=== PATIENT | female | born 1955 | race Caucasian/White ===

== ENCOUNTER 2018-01-30 14:59 | Inpatient (IN) | payer BC ==
[2018-01-30] MEDS ORDERED: SODIUM CHLORIDE 0.9% 1,000 ML IV STA (15:25)
--- NOTE | 2018-01-30 15:32 | ED ---
General Adult HPI - General Chief complaint: Abdominal Pain Stated complaint: abd pain Source: patient, EMS Mode of arrival: EMS - History of Present Illness Initial comments: Dictation was produced using [employer] dictation software. please excuse any grammatical, word or spelling errors. Chief Complaint: 62-year-old female with past medical history of diabetes, dyslipidemia presents via EMS as a transfer for incarcerated hernia. History of Present Illness: Patient is 62-year-old female with past medical history of umbilical hernia. She has had this hernia for several years now. She was on her feet all day making cookies when she took a nap on a chair. She woke up secondary to severe abdominal tenderness. She went directly to [facility] emergency department where CT was performed showing incarcerated umbilical hernia. And small bowel obstruction. Patient did have leukocytosis and a left acidosis of 3.2. She started on Zosyn and intravenous fluids and transferred to our facility for higher level of care. Patient had NG tube that was placed that significantly reduced her symptoms. She reports that the attempted reduction of hernia there however en route to our facility the hernia recurred. The ROS documented in this emergency department record has been reviewed and confirmed by me. Those systems with pertinent positive or negative responses have been documented in the HPI. All other systems are other negative and/or noncontributory. - Related Data Allergies Allergy/AdvReac Type Severity Reaction Status Date / Time acetaminophen [From Vicodin] Allergy Unknown Verified 01/30/18 15:01 hydrocodone [From Vicodin] Allergy Unknown Verified 01/30/18 15:01 Review of Systems ROS Statement: Those systems with pertinent positive or pertinent negative responses have been documented in the HPI. ROS Other: All systems not noted in ROS Statement are negative. Past Medical History Past Medical History: Diabetes Mellitus, Hyperlipidemia Additional Past Medical History / Comment(s): heart palpatation, neuropathy in feet History of Any Multi-Drug Resistant Organisms: None Reported Past Surgical History: Section, Cholecystectomy, Orthopedic Surgery Additional Past Surgical History / Comment(s): fx nose, tailbone cyst, oopherectomy, right shoulder surgery Past Psychological History: No Psychological Hx Reported Smoking Status: Never smoker Past Alcohol Use History: None Reported Past Drug Use History: None Reported General Exam - General Exam Comments Initial Comments: PHYSICAL EXAM: General Impression: Alert and oriented x3, not in acute distress HEENT: Normocephalic atraumatic, extra-ocular movements intact, pupils equal and reactive to light bilaterally, mucous membranes moist, NG tube in place Cardiovascular: Heart regular rate and rhythm, S1&S2 audible, no murmurs, rubs or gallops Chest: Lungs clear to auscultation bilaterally, no rhonchi, no wheeze, no rales Abdomen: Bowel sounds present, abdomen soft, diffuse abdominal tenderness to palpation, broad-based hernia over the supraumbilical region Musculoskeletal: Pulses present and equal in all extremities, no peripheral edema Motor: Power 5/5 bilaterally, no focal deficits noted Neurological: CN II-XII grossly intact, no focal motor or sensory deficits noted Skin: Intact with no visualized rashes Psych: Normal affect and mood Course Vital Signs 01/30/18 15:02 Temperature 98.1 F Pulse Rate 104 H Respiratory 18 Rate Blood Pressure 145/87 O2 Sat by Pulse 96 Oximetry Medical Decision Making - Medical Decision Making ED course: 62-year-old female presents via transfer for possible strangulate hernia. Vocal shows heart rate of 104, respiratory signs within normal limits. Hernia was appreciated at bedside. Hernia was reduced with gentle pressure to a pop was felt. Patient appears stable at this time. Patient started intravenous was. Repeat lactic acid level was obtained. Discussed patient case with general surgeon who is willing to accept admission. There is no plans for urgent surgical intervention at this time. Disposition Clinical Impression: Small bowel obstruction, Incarcerated hernia Disposition: ADMITTED IP TO THIS HOSP Condition: Fair Referrals: Torres Tyler DO [Primary Care Provider] - 1-2 days Decision Time: 15:35
[2018-01-30] MEDS ORDERED: NALOXONE 0.4 MG/ML 1 ML VIAL IV PRN (15:33)
[2018-01-30] MEDS ORDERED: MORPHINE SULFATE 4 MG/ML SYRINGE IV PRN (15:33)
[2018-01-30] MEDS ORDERED: ONDANSETRON 4 MG/2 ML VIAL IVP PRN (15:33)
[2018-01-30] MEDS ORDERED: PIPERACILLIN-TAZOBACTAM 3.375 GM in SODIUM CHLORIDE 0.9% 100 ML IVPB SCH (17:00)
--- NOTE | 2018-01-30 17:45 | P.GSHP ---
History of Present Illness H&P Date: 01/30/18 Chief Complaint: Abdominal pain 62-year-old female presents to the hospital with 2 days worth of abdominal pain. She has had episodes of vomiting as well. Some bloating. Patient is a history of a known umbilical hernia that was previously repaired at the time of her gallbladder surgery. She did not really appreciate that the hernia had gotten much larger or more painful per se. Pain was more diffuse in nature. Patient has a history of chronic constipation. She has not noticed a significant change in flatus or bowel movements since her symptoms began. She was at [facility]. She had a CAT scan showing incarceration of small bowel and fat at the recurrent umbilical hernia site. There was suggestion of a transition zone in the small bowel at that location. Apparently this hernia was able to be reduced both in the ER at [place] and also here at our emergency department. Lactic acid was elevated as well as the patient's white blood cell count at [place]. Patient feels much better and is almost pain free at this time. Nasogastric tube was placed with unknown output. Patient was started on IV antibiotics as well. She was admitted to the surgical service with these complaints. No history of similar events. - Review of Systems Comment: The patient denies any acute changes in vision or hearing, no dysphagia or odynophagia, no chest pain or shortness of breath, no dysuria or hematuria, no headache, no runny nose, no rectal bleeding or melena, no unexplained weight loss Past Medical History Past Medical History: Diabetes Mellitus, Hyperlipidemia Additional Past Medical History / Comment(s): heart palpatation, neuropathy in feet History of Any Multi-Drug Resistant Organisms: None Reported Past Surgical History: Section, Cholecystectomy, Orthopedic Surgery Additional Past Surgical History / Comment(s): fx nose, tailbone cyst, oopherectomy, right shoulder surgery Past Psychological History: No Psychological Hx Reported Smoking Status: Never smoker Past Alcohol Use History: None Reported Past Drug Use History: None Reported Medications and Allergies Home Medications Medication Instructions Recorded Confirmed Type Aspirin EC [Ecotrin Low Dose] 81 mg PO DAILY 01/30/18 01/30/18 History Cetirizine HCl 10 mg PO DAILY 01/30/18 01/30/18 History Niacin 500 mg PO DAILY 01/30/18 01/30/18 History Nortriptyline HCl [Pamelor] 100 mg PO DAILY 01/30/18 01/30/18 History [place]-3 Fatty Acids/Fish Oil [Fish 1 cap PO DAILY 01/30/18 01/30/18 History Oil 1,000 mg Softgel] Verapamil HCl [Verelan Pm] 100 mg PO HS 01/30/18 01/30/18 History metFORMIN HCL 1,000 mg PO DAILY 01/30/18 01/30/18 History Allergies Allergy/AdvReac Type Severity Reaction Status Date / Time hydrocodone [From Vicodin] Allergy Unknown Verified 01/30/18 16:00 latex AdvReac Itching Verified 01/30/18 16:00 Surgical - Exam Vital Signs Temp Pulse Resp BP Pulse Ox 98.1 F 104 H 18 145/87 96 01/30/18 15:02 01/30/18 15:02 01/30/18 15:02 01/30/18 15:02 01/30/18 15:02 Physical exam: General: Well-developed, well-nourished HEENT: Normocephalic, sclerae nonicteric Abdomen: Mild distention, mild diffuse tenderness, hernia easily reducible without tenderness at that location Extremities: No edema Neuro: Alert and oriented Assessment and Plan (1) Small bowel obstruction Narrative/Plan: Patient may have had a bowel obstruction related to this hernia however the hernia is now easily reducible. Keep nasogastric tube this evening. Recheck x- rays tomorrow. Patient will require interval repair of this hernia but this may be performed as an outpatient. We'll discuss this further with the patient during this hospital stay. Current Visit: Yes Status: Acute Code(s): K56.609 - UNSP INTESTNL OBST, UNSP TO PARTIAL VERSUS COMPLETE OBST SNOMED Code(s): 938204200
[2018-01-30] MEDS ORDERED: METOCLOPRAMIDE 5 MG/ML 2 ML VIAL IVP PRN (17:46)
[2018-01-30] MEDS ORDERED: ACETAMINOPHEN IV (For NPO) 1,000 MG in EMPTY BAG 1 BAG IVPB ONE (17:46)
[2018-01-30] MEDS ORDERED: HYDROmorphone 0.5 MG/0.5 ML SYRINGE IVP PRN ×2 (17:46→17:59)
[2018-01-30 18:06] LABS: Glucose,Whole Blood 141 mg/dL (75-99)
[2018-01-30 18:28] VITALS: BMI 43.5
[2018-01-30] MEDS ORDERED: BENZOCAINE SPRAY 1 CAN MUCOUS MEM PRN (19:29)
[2018-01-30 20:52] LABS: Glucose,Whole Blood 90 mg/dL (75-99)
[2018-01-30 21:01] VITALS: RESP 16
[2018-01-30] MEDS: INSULIN ASPART 100 UNIT/ML 1 ML 10 ML VIAL SQ SCH (21:22)
[2018-01-30] MEDS: PIPERACILLIN-TAZOBACTAM 3.375 GM in SODIUM CHLORIDE 0.9% 100 ML IVPB SCH (21:24)
[2018-01-31] MEDS: HEPARIN SODIUM,PORCINE 5,000 UNIT/ML 1 ML VIAL SQ SCH ×3 (01:16→15:21)
[2018-01-31] MEDS: PIPERACILLIN-TAZOBACTAM 3.375 GM in SODIUM CHLORIDE 0.9% 100 ML IVPB SCH ×2 (05:15→15:18)
[2018-01-31 07:05] LABS: Glucose,Whole Blood 111 mg/dL (75-99)
--- NOTE | 2018-01-31 08:20 | XR ---
2 view abdomen HISTORY: Small bowel obstruction 2 views the abdomen submitted on [address] abdomen pelvis from outside institution 01/30/2018. There is no pneumoperitoneum. NG tube is in place, side-port is at the level of the distal thoracic e sophagus. There are air-fluid levels present. Gas distended loops of small bowel noted. Patchy basila r density present at the lung bases. Surgical clips present in the right upper quadrant. Contrast pre sent in the bladder compatible with patient's prior CT. Degenerative disc changes in the visualized s pine. IMPRESSION: Findings compatible with small bowel obstruction. Correlate. NG tube shows the side port near the level of the gastroesophageal junction.
[2018-01-31 08:40] LABS: Basophils % (A) 0 %; Eosinophils # (A) 0.2 k/uL (0-0.7); Eosinophils % (A) 3 %; HCT 37.6 % (34.0-46.0); HGB 12.1 gm/dL (11.4-16.0); Lymphocytes # (A) 2.2 k/uL (1.0-4.8); Lymphocytes % (A) 22 %; MCH 27.5 pg (25.0-35.0); MCHC 32.3 g/dL (31.0-37.0); MCV 85.1 fL (80.0-100.0); Mean Platelet Volume 6.7; Monocytes # (A) 0.5 k/uL (0-1.0); Monocytes % (A) 5 %; Neutrophils # (A) 6.6 k/uL (1.3-7.7); Neutrophils % (A) 68 %; Platelet Count 324 k/uL (150-450); RBC 4.42 m/uL (3.80-5.40); RDW 13.8 % (11.5-15.5); WBC 9.7 k/uL (3.8-10.6)
[2018-01-31 08:52] LABS: ALT 35 U/L (9-52); AST 24 U/L (14-36); Albumin 3.6 g/dL (3.5-5.0); Alkaline Phosphatase 85 U/L (38-126); Anion Gap 8 mmol/L; Blood Urea Nitrogen 17 mg/dL (7-17); Calcium 8.5 mg/dL (8.4-10.2); Carbon Dioxide 24 mmol/L (22-30); Chloride 110 mmol/L (98-107); Glucose 117 mg/dL (74-99); Potassium 4.2 mmol/L (3.5-5.1); Sodium 142 mmol/L (137-145); Total Bilirubin 0.7 mg/dL (0.2-1.3); Total Protein 6.7 g/dL (6.3-8.2)
[2018-01-31] MEDS ORDERED: PANTOPRAZOLE 40 MG/10 ML VIAL IV SCH (09:00)
[2018-01-31] MEDS: INSULIN ASPART 100 UNIT/ML 1 ML 10 ML VIAL SQ SCH ×3 (09:01→17:59)
[2018-01-31 10:33] VITALS: TEMP 98.2
[2018-01-31 11:26] LABS: Glucose,Whole Blood 98 mg/dL (75-99)
[2018-01-31] MEDS ORDERED: SODIUM CHLORIDE 0.9% 1,000 ML IV SCH (12:45)
--- NOTE | 2018-01-31 12:49 | P.CONS ---
History of Present Illness - Reason for Consult Recommendations regarding diabetic medications. - History of Present Illness 62-year-old pleasant female had an episode of vomiting Tuesday and one Tuesday and the went to ER patient has a little hernia she was having pain in the medical hernia area moderate pain and bloating had multiple episodes of vomiting when she arrived in the [place] ER after which patient was subsequently sent in here CAT scan showed suspicious incarceration of the small bowel because of which patient was admitted to general surgery service. I was consulted for management of diabetes. Patient uses metformin and patient nausea vomiting improved patient an NG tube no drainage today which will be clamped and probably NG tube will come out lactic acid was bit elevated because of which patient received IV fluids and lactic acid here is within normal limits patient was initially started on IV antibiotics are being continued may not need antibiotics discussed general surgery. Patient is able to tolerate clear liquid diet after the discontinued NG tube patient probably will be discharged today there is a chance she may not tolerate in that scenario will resume her home medications sliding scale insulin. Review of Systems REVIEW OF SYSTEMS: CONSTITUTIONAL: No fever, no malaise, no fatigue. HEENT: No recent visual problems or hearing problems. Denied any sore throat. CARDIOVASCULAR: No chest pain, orthopnea, PND, no palpitations, no syncope. PULMONARY: No shortness of breath, no cough, no hemoptysis. GASTROINTESTINAL: As mentioned in HPI NEUROLOGICAL: No headaches, no weakness, no numbness. HEMATOLOGICAL: Denies any bleeding or petechiae. GENITOURINARY: Denies any burning micturition, frequency, or urgency. MUSCULOSKELETAL/RHEUMATOLOGICAL: Denies any joint pain, swelling, or any muscle pain. ENDOCRINE: Denies any polyuria or polydipsia. The rest of the 14-point review of systems is negative. Past Medical History Past Medical History: Diabetes Mellitus, Hyperlipidemia Additional Past Medical History / Comment(s): heart palpatation, neuropathy in feet History of Any Multi-Drug Resistant Organisms: None Reported Past Surgical History: Section, Cholecystectomy, Orthopedic Surgery Additional Past Surgical History / Comment(s): fx nose, tailbone cyst, oopherectomy, right shoulder surgery Past Psychological History: No Psychological Hx Reported Smoking Status: Never smoker Past Alcohol Use History: None Reported Past Drug Use History: None Reported - Past Family History Father Family Medical History: Congestive Heart Failure (CHF) Mother Family Medical History: Congestive Heart Failure (CHF), Deep Vein Thrombosis ( DVT) Medications and Allergies Home Medications Medication Instructions Recorded Confirmed Type Aspirin EC [Ecotrin Low Dose] 81 mg PO DAILY 01/30/18 01/30/18 History Cetirizine HCl 10 mg PO DAILY 01/30/18 01/30/18 History Niacin 500 mg PO DAILY 01/30/18 01/30/18 History Nortriptyline HCl [Pamelor] 100 mg PO DAILY 01/30/18 01/30/18 History [place]-3 Fatty Acids/Fish Oil [Fish 1 cap PO DAILY 01/30/18 01/30/18 History Oil 1,000 mg Softgel] Verapamil HCl [Verelan Pm] 100 mg PO HS 01/30/18 01/30/18 History metFORMIN HCL 1,000 mg PO DAILY 01/30/18 01/30/18 History Allergies Allergy/AdvReac Type Severity Reaction Status Date / Time hydrocodone [From Vicodin] Allergy Unknown Verified 01/30/18 16:00 latex AdvReac Itching Verified 01/30/18 16:00 Physical Exam Vitals: Vital Signs Temp Pulse Pulse Resp BP BP Pulse Ox 01/31/18 10:31 98.2 F 95 16 120/81 98 01/31/18 00:15 16 01/30/18 23:59 98.3 F 111 H 16 121/80 94 L 01/30/18 20:50 100 16 01/30/18 19:00 98.4 F 100 16 130/75 01/30/18 16:30 131/75 95 01/30/18 16:12 100 20 125/77 99 01/30/18 16:00 129/76 97 01/30/18 15:30 145/87 95 01/30/18 15:03 145/87 96 01/30/18 15:02 98.1 F 104 H 18 145/87 96 Intake and Output 01/30/18 01/31/18 01/31/18 22:59 06:59 14:59 Intake Total 100 200 Output Total 10 110 Balance 90 90 Intake: Intake, IV Titration 100 200 Amount Piperacillin-Tazobactam 3 100 200 .375 gm In Sodium Chloride 0.9% 100 ml @ 25 mls/hr IVPB Q8H CRISTIN Rx#: [id number] Output: Gastric Drainage 10 110 Other: # Voids 2 2 Weight 122.47 kg PHYSICAL EXAMINATION: GENERAL: The patient is alert and oriented x3, not in any acute distress. Well developed, well nourished. HEENT: Pupils are round and equally reacting to light. EOMI. No scleral icterus. No conjunctival pallor. Normocephalic, atraumatic. No pharyngeal erythema. No thyromegaly. CARDIOVASCULAR: S1 and S2 present. No murmurs, rubs, or gallops. PULMONARY: Chest is clear to auscultation, no wheezing or crackles. ABDOMEN: Soft, nontender, nondistended, normoactive bowel sounds. No palpable organomegaly. She has an abdominal binder in place does have an NG tube which is not draining and clamped now patient's hernia was completely reduced now MUSCULOSKELETAL: No joint swelling or deformity. EXTREMITIES: No cyanosis, clubbing, or pedal edema. NEUROLOGICAL: Gross neurological examination did not reveal any focal deficits. SKIN: No rashes. Results CBC & Chem 7: 01/31/18 07:32 01/31/18 07:32 Labs: Abnormal Lab Results - Last 24 Hours (Table) 01/30/18 01/31/18 01/31/18 Range/Units 17:54 06:51 07:32 Chloride 110 H (98-107) mmol/L Glucose 117 H (74-99) mg/dL POC Glucose (mg/dL) 141 H 111 H (75-99) mg/dL Assessment and Plan Plan: -Symptomatic hernia with abdominal pain nausea vomiting: Was evaluated by general surgery, patient is being continued antibiotic and medical management as per general surgery. NG tube will be clamped and further plan as mentioned in the interval history patient was started on sliding scale insulin hold off on metformin -Type 2 diabetes mellitus since patient is nothing by mouth patient will be on sliding scale rather than oral hypoglycemic agents -Hyperlipidemia -History of palpitations exact heart rhythm is unknown although patient is on verapamil which will be resumed -Obesity
--- NOTE | 2018-01-31 13:30 | P.PN ---
Subjective Progress Note Date: 01/31/18 Principal diagnosis: Small bowel obstruction Patient feels better today. No pain at this time. She is having discomfort at the nasogastric tube site. Hernia feels back to normal she states. She is passing flatus. No bowel movement. Objective - Vital Signs Vital signs: Vital Signs Temp 98.2 F 01/31/18 10:31 Pulse 95 01/31/18 10:31 Resp 16 01/31/18 10:31 BP 120/81 01/31/18 10:31 Pulse Ox 98 01/31/18 10:31 Intake & Output 01/30/18 01/31/18 01/31/18 18:59 06:59 18:59 Intake Total 300 Output Total 120 Balance 180 Weight 122.47 kg Intake: Intake, IV Titration 300 Amount Piperacillin-Tazobactam 3 300 .375 gm In Sodium Chloride 0.9% 100 ml @ 25 mls/hr IVPB Q8H CRISTIN Rx#: [id number] Output: Gastric Drainage 120 Other: # Voids 2 - Exam Endocrine: Soft, nondistended, nontender, hernia reducible - Labs CBC & Chem 7: 01/31/18 07:32 01/31/18 07:32 Labs: Abnormal Lab Results - Last 24 Hours (Table) 01/30/18 01/31/18 01/31/18 Range/Units 17:54 06:51 07:32 Chloride 110 H (98-107) mmol/L Glucose 117 H (74-99) mg/dL POC Glucose (mg/dL) 141 H 111 H (75-99) mg/dL Assessment and Plan (1) Small bowel obstruction Narrative/Plan: Remove nasogastric tube. Begin full liquid diet. Ambulate. Possible discharge today with outpatient repair of the hernia. Current Visit: Yes Status: Acute Code(s): K56.609 - UNSP INTESTNL OBST, UNSP TO PARTIAL VERSUS COMPLETE OBST SNOMED Code(s): 320887044
[2018-01-31 15:07] VITALS: BP 147/92; PULSE 97
[2018-01-31 17:31] LABS: Glucose,Whole Blood 88 mg/dL (75-99)
[2018-01-31] MEDS ORDERED: VERAPAMIL SR 120 MG TABLET.ER PO SCH (21:00)
[2018-02-01] MEDS ORDERED: NIACIN TR 500 MG CAPSULE.ER PO SCH (09:00)
[2018-02-01] MEDS ORDERED: ASPIRIN 81 MG PO SCH (09:00)
[2018-02-01] MEDS ORDERED: NORTRIPTYLINE 25 MG CAP PO SCH (09:00)
[2018-02-01 10:30] LABS: Hemoglobin A1C 6.2 % (4.0-6.0)
== END 2018-01-31 20:59 | disposition home or self-care (01) | DRG 394 ==
LOC: EC 14:59 → 4SSUR 15:33
PROVIDERS: ADMIT Surgery; ATTEND Surgery
DX: K42.0 Umbilical hernia with obstruction, without gangrene (principal); E87.2 Acidosis; Z68.41 Body mass index [BMI] 40.0-44.9, adult; D72.829 Elevated white blood cell count, unspecified; E78.5 Hyperlipidemia, unspecified; Z79.84 Long term (current) use of oral hypoglycemic drugs; Z82.49 Family history of ischemic heart disease and other diseases of the circulatory system; E11.40 Type 2 diabetes mellitus with diabetic neuropathy, unspecified; Z90.721 Acquired absence of ovaries, unilateral; Z83.2 Family history of diseases of the blood and blood-forming organs and certain disorders involving the immune mechanism; Z88.5 Allergy status to narcotic agent; Z91.040 Latex allergy status; Z79.82 Long term (current) use of aspirin; Z79.899 Other long term (current) drug therapy; E66.9 Obesity, unspecified; R00.2 Palpitations
CPT/HCPCS: 74019; 80053; 83036; 83605; 85025; 96360; 99285

== ENCOUNTER → 2018-02-23 | Outpatient (CLI) | payer BC | END | disposition home or self-care (01) | LOC: LABPAT 11:56 | PROVIDERS: ATTEND Anesthesiology | DX: Z01.818 Encounter for other preprocedural examination (principal) | CPT/HCPCS: 93005 ==

== ENCOUNTER 2018-02-24 10:46 | Day surgery (SDC) | payer BC ==
[2018-02-22 11:44] VITALS: BMI 44.9
[~2018-02-24 10:46] MED LIST: DEXAMETHASONE SOD PHOSPHATE 10 MG/ML 1 ML VIAL IV ONE; HEPARIN SODIUM,PORCINE 5,000 UNIT/ML 1 ML VIAL SQ ONE; LACTATED RINGERS 1,000 ML IV SCH; LIDOCAINE 1% 20 ML VIAL (10MG/ML) FOR IV START INTRADERMA PRN; ONDANSETRON 4 MG/2 ML VIAL IVP ONE; SCOPOLAMINE 1.5MG/72HR PATCH TRANSDERM ONE
[2018-02-24 11:37] LABS: Glucose,Whole Blood 117 mg/dL (75-99)
[2018-02-24] MEDS ORDERED: MIDAZOLAM 2 MG/2 ML VIAL ONE (12:09)
[2018-02-24] MEDS ORDERED: GLYCOPYRROLATE 0.2 MG/ML 2 ML VIAL ONE (12:09)
[2018-02-24] MEDS ORDERED: PROPOFOL 10 MG/ML 20 ML VIAL IV ONE (12:09)
[2018-02-24] MEDS ORDERED: PHENYLEPHRINE-0.9% NACL SYG 1 MG/10 ML SYRINGE ONE (12:09)
[2018-02-24] MEDS ORDERED: NEOSTIGMINE 1 MG/ML 10 ML VIAL ONE (12:09)
[2018-02-24] MEDS ORDERED: ROCURONIUM BROMIDE 10 MG/ML 10 ML VIAL IV ONE (12:09)
[2018-02-24] MEDS ORDERED: LIDOCAINE 1% INJ 10MG/ML (20 ML MDV) ONE (12:09)
[2018-02-24] MEDS ORDERED: fentaNYL (PF) 50 MCG/ML 2 ML AMP ONE (12:09)
[2018-02-24] MEDS ORDERED: BUPIVACAINE (PF) 0.25% 30 ML VIAL SQ ONE ×2 (12:38)
[2018-02-24] MEDS ORDERED: LACTATED RINGERS 1,000 ML IV ONE ×2 (13:35)
[2018-02-24] MEDS ORDERED: NALOXONE 0.4 MG/ML 1 ML VIAL IV PRN (14:25)
--- NOTE | 2018-02-24 14:31 | P.OP ---
Date of Procedure: 02/24/18 Procedure(s) Performed: PREOPERATIVE DIAGNOSIS: Umbilical hernia POSTOPERATIVE DIAGNOSIS: Large incarcerated umbilical hernia PROCEDURE: Umbilical herniorrhaphy with mesh SURGEON: Yasmeen EBL: Minimal ANESTHESIA: General COMPLICATIONS: None OPERATIVE PROCEDURE: The patient was placed in the operating table in the supine position. A periumbilical incision was made to the left side of the umbilicus using the scalpel. This was later lengthened slightly superiorly and inferiorly. The subcutaneous tissues were dissected bluntly. The hernia sac was identified. The umbilical attachments to the fascia were divided using electrocautery. The hernia was quite large. Much larger than anticipated. The omentum was stuck to the hernia sac itself. The hernia sac and adjacent omentum was excised as one piece using the LigaSure device. This measured approximately 12-15 cm in diameter. The fascial defect was measured and noted to be 8 x 6 cm. No additional fascial defects were encountered. The 12 x 8 cm oval-shaped Ventrio mesh was placed beneath the fascia and sutured to the fascia using trans-fascial 0 Ethibond sutures. The defect in the fascia was then reapproximated using interrupted 0 Ethibond sutures in a vest over pants fashion and [id number] sutures. The folding edge was tacked down again using 0 Ethibond sutures. A NIXON drain was placed anterior to the fascial closer exiting from the left lower quadrant. This was sutured in place using a 3-0 silk stitch. The subcutaneous tissues were reapproximated using inverted 2-0 Vicryl sutures. The umbilicus was tacked back down to the fascia using a 3-0 Vicryl suture. The skin was closed using 4-0 Monocryl sutures. Skin glue and sterile dressings were then applied. DISPOSITION: Stable to recovery room
[2018-02-24 14:37] LABS: Glucose,Whole Blood 131 mg/dL (75-99)
[2018-02-24] MEDS: HYDROmorphone 0.5 MG/0.5 ML SYRINGE IVP PRN ×4 (14:58→15:41)
[2018-02-24] MEDS ORDERED: ONDANSETRON 4 MG/2 ML VIAL IVP ONE (15:35)
[2018-02-24] MEDS ORDERED: HYDROmorphone 1 MG/ML 1 ML SYRINGE IVP PRN (16:14)
[2018-02-24] MEDS: SODIUM CHLORIDE 0.9% 1,000 ML IV SCH (20:48)
[2018-02-24] MEDS: Acetaminophen-Codeine 300-30mg TAB PO PRN (20:49)
[2018-02-24] MEDS ORDERED: VERAPAMIL SR 120 MG TABLET.ER PO SCH (21:00)
[2018-02-25] MEDS: Acetaminophen-Codeine 300-30mg TAB PO PRN ×3 (01:29→14:08)
[2018-02-25] MEDS: SODIUM CHLORIDE 0.9% 1,000 ML IV SCH (03:57)
[2018-02-25] MEDS ORDERED: metFORMIN 500 MG TAB PO SCH (09:00)
--- NOTE | 2018-02-25 11:20 | P.DS ---
Providers Expected date of discharge: 02/25/18 Attending physician: Saúl Arana Primary care physician: [facility] Course: Patient minute postoperatively yesterday for observation purposes. The patient' s umbilical hernia was much larger than expected. A drain was left in place. She was having discomfort postoperatively and was kept overnight. She is doing well today. Tolerating diet. Ambulating in the room. We'll discharge. Plan follow-up week. Plan - Discharge Summary Discharge Rx Participant: No New Discharge Prescriptions: New Acetaminophen with Codeine [Tylenol w/codeine #3] 1 tab PO Q4H #10 tab No Action Aspirin EC [Ecotrin Low Dose] 81 mg PO DAILY Verapamil HCl [Verelan Pm] 100 mg PO HS [place]-3 Fatty Acids/Fish Oil [Fish Oil 1,000 mg Softgel] 1 cap PO DAILY Nortriptyline HCl [Pamelor] 100 mg PO HS Cetirizine HCl 10 mg PO DAILY PRN PRN Reason: Allergy Symptoms metFORMIN HCL 1,000 mg PO DAILY Discharge Medication List Aspirin EC [Ecotrin Low Dose] 81 mg PO DAILY 01/30/18 [History] Cetirizine HCl 10 mg PO DAILY PRN 01/30/18 [History] Nortriptyline HCl [Pamelor] 100 mg PO HS 01/30/18 [History] [place]-3 Fatty Acids/Fish Oil [Fish Oil 1,000 mg Softgel] 1 cap PO DAILY [History] Verapamil HCl [Verelan Pm] 100 mg PO HS 01/30/18 [History] metFORMIN HCL 1,000 mg PO DAILY 01/30/18 [History] Acetaminophen with Codeine [Tylenol w/codeine #3] 1 tab PO Q4H #10 tab 02/24/18 [Rx] Follow up Appointment(s)/Referral(s): Saúl Arana MD [Medical Doctor] - 03/02/18 9:40 am Patient Instructions/Handouts: *Surgery [facility] - (Anesthesia) Discharge Instructions Outpatient Surgery, [place] Drain Care (DC), Umbilical Hernia Repair (DC)
[2018-02-25 14:42] VITALS: BP 119/71; PULSE 102; RESP 18; TEMP 98.4
== END 2018-02-25 14:15 | disposition home or self-care (01) ==
LOC: OR 10:46 → 6PED 14:29 → OR 02-25 14:15
PROVIDERS: ATTEND Surgery
DX: K42.0 Umbilical hernia with obstruction, without gangrene (principal); E78.5 Hyperlipidemia, unspecified; E11.42 Type 2 diabetes mellitus with diabetic polyneuropathy; Z88.5 Allergy status to narcotic agent; Z91.040 Latex allergy status; Z79.82 Long term (current) use of aspirin; Z79.84 Long term (current) use of oral hypoglycemic drugs; Z79.899 Other long term (current) drug therapy; Z82.49 Family history of ischemic heart disease and other diseases of the circulatory system
CPT/HCPCS: 88302; 49587; C1781; J2250; J1644; J1100; J2710; J0690; J2405; J2001; J3010; J2370; J2704; J1170

== ENCOUNTER → 2020-11-24 | Outpatient (CLI) | payer BC ==
--- NOTE | 2020-12-02 14:21 | MR ---
Pelvic MRI with and without contrast HISTORY: Abnormal pelvic ultrasound Multiplanar multisequence and postcontrast images obtained through the pelvis following routine cc ga dolinium based IV. Correlation pelvic ultrasound from outside institution 11/06/2020 There are multiple myometrial masses present showing low signal on T1 and T2-weighted sequences with varying sizes. On sagittal image 15, coronal image 11 there is a focus which extends into the endomet rial location consistent with submucosal fibroid measuring approximately 6 to 7 mm. In the lower [place] rine segment there is a lesion measuring approximately 2.7 cm within the myometrium, anterior body sh ows a focus measuring 2.7 cm, there are at least 8-10 lesions present. Along the endocervical canal t here is a mucosal irregularity, sagittal image 14, coronal image 18 also possibly representing a subm ucosal fibroid. Transitional zone thought to be within normal limits. No evident ovarian mass, follic les are present. Urinary bladder is contracted. No definite pelvic adenopathy or free fluid. Visualiz ed bone marrow signal is normal, degenerative disc changes are present in the lower lumbar spine. IMPRESSION: Fibroid uterus is favored, possible pedunculated subcentimeter fibroid along the endometr ium and possibly along the cervix
== END | disposition home or self-care (01) ==
LOC: RADMRIMAIN 06:53
PROVIDERS: ATTEND Nurse Practitioner Family
DX: D25.9 Leiomyoma of uterus, unspecified (principal)
CPT/HCPCS: 72197; A9585

== ENCOUNTER 2021-12-06 09:06 | Inpatient (IN) | payer BC ==
--- NOTE | 2021-12-06 09:42 | ED ---
General Adult HPI - General Chief complaint: Fever Stated complaint: SOB,Fever Time Seen by Provider: 12/06/21 09:07 Source: patient Mode of arrival: ambulatory Limitations: no limitations - History of Present Illness Initial comments: Dictation was produced using [employer] dictation software. please excuse any grammatical, word or spelling errors. Chief Complaint: 65-year-old female presents to the emergency department for exertional dyspnea, fevers. History of Present Illness: Patient 65-year-old female she has multiple comorbidities. Patient takes multiple medications. She has history of heart palpitations for several years for which she takes verapamil. Patient states that for the last 7 days she's been having exertional dyspnea and fevers. She denies any chest pain. She denies any dyspnea at rest. History of blood clots. Denies any lower extremity symptoms. Patient does not take any anticoagulant medications. She has had some right nose. No sore throat. No cough. Patient has any pain complaints. Denies any urinary symptoms. No obvious sick exposures. The ROS documented in this emergency department record has been reviewed and confirmed by me. Those systems with pertinent positive or negative responses have been documented in the HPI. All other systems are other negative and/or noncontributory. PHYSICAL EXAM: General Impression: Alert and oriented x3, not in acute distress HEENT: Normocephalic atraumatic, extra-ocular movements intact, pupils equal and reactive to light bilaterally, mucous membranes moist. Cardiovascular: Heart regular rate and rhythm Chest: Able to complete full sentences, no retractions, no tachypnea Abdomen: abdomen soft, non-tender, non-distended, no organomegaly Musculoskeletal: Pulses present and equal in all extremities, no peripheral edema Motor: no focal deficits noted Neurological: CN II-XII grossly intact, no focal motor or sensory deficits noted Skin: Intact with no visualized rashes Psych: Normal affect and mood ED course: 65-year-old well-appearing female presents to the emergency department for chief complaint of palpitations, fevers and exertional dyspnea signs upon arrival are within acceptable limits. EKG is unremarkable. Laboratory evaluation obtained. Leukopenia of 0.7, hemoglobin 8.0. These appear to be significantly decreased compared to labs compared from 2018. Coag panel metabolic panel is within acceptable limits. Patient given some magnesium oral supplementation. Urinalysis negative. For panel by PCR is negative. Pat ient be admitted with consultation from hematology. Patient admitted to [facility] emergency department physician group. EKG interpretation: Ventricular rate a, normal sinus rhythm,. 180, QS 92, QTc 383. No VT prolongation, no QTC prolongation, no ST or T-wave changes noted. Overall, this EKG is unremarkable - Related Data Home Medications Medication Instructions Recorded Confirmed Aspirin EC [Ecotrin Low Dose] 81 mg PO DAILY 01/30/18 02/24/18 Cetirizine HCl 10 mg PO DAILY PRN 01/30/18 02/24/18 Nortriptyline HCl [Pamelor] 100 mg PO HS 01/30/18 02/24/18 [place]-3 Fatty Acids/Fish Oil [Fish 1 cap PO DAILY 01/30/18 02/24/18 Oil 1,000 mg Softgel] Verapamil HCl [Verelan Pm] 100 mg PO HS 01/30/18 02/24/18 metFORMIN HCL [Glucophage] 1,000 mg PO DAILY 01/30/18 02/24/18 Previous Rx's Medication Instructions Recorded Acetaminophen with Codeine 1 tab PO Q4H #10 tab 02/24/18 [Tylenol w/codeine #3] Allergies Allergy/AdvReac Type Severity Reaction Status Date / Time hydrocodone [From Vicodin] AdvReac Nausea & Verified 12/06/21 09:25 Vomiting & Diarrhea latex AdvReac Itching Verified 12/06/21 09:25 Review of Systems ROS Statement: Those systems with pertinent positive or pertinent negative responses have been documented in the HPI. ROS Other: All systems not noted in ROS Statement are negative. Past Medical History Past Medical History: Diabetes Mellitus Additional Past Medical History / Comment(s): heart palpatations, neuropathy salvador feet, irregular bowel movements, History of Any Multi-Drug Resistant Organisms: None Reported Past Surgical History: Section, Cholecystectomy, Hernia Repair, Orthopedic Surgery Additional Past Surgical History / Comment(s): surgery for fx nose, tailbone cyst removed, left oophorectomy, partial rt oophorectomy, right shoulder surgery, hernia repair during gallbladder surgery, Past Anesthesia/Blood Transfusion Reactions: Previous Problems w/ Anesthesia, Motion Sickness, Postoperative Nausea & Vomiting (PONV) Additional Past Anesthesia/Blood Transfusion Reaction / Comment(s): "very hard coming out of anesthesia", last surgery(shoulder) "seemed like having trouble breathing when coming out" Past Psychological History: No Psychological Hx Reported Smoking Status: Never smoker Past Alcohol Use History: None Reported, Rare Past Drug Use History: None Reported - Past Family History Father Family Medical History: Congestive Heart Failure (CHF) Mother Family Medical History: Deep Vein Thrombosis (DVT) General Exam Limitations: no limitations Course Vital Signs 12/06/21 09:21 Temperature 97.6 F Pulse Rate 94 Respiratory 20 Rate Blood Pressure 114/71 O2 Sat by Pulse 98 Oximetry Medical Decision Making - Lab Data Result diagrams: 12/06/21 09:53 12/06/21 09:53 Lab Results 12/06/21 12/06/21 12/06/21 Range/Units 09:35 09:53 09:53 WBC 0.7 L* (3.8-10.6) k/uL RBC 2.55 L (3.80-5.40) m/uL Hgb 8.0 L (11.4-16.0) gm/dL Hct 22.9 L (34.0-46.0) % MCV 89.8 (80.0-100.0) fL MCH 31.5 (25.0-35.0) pg MCHC 35.1 (31.0-37.0) g/dL RDW 15.5 (11.5-15.5) % Plt Count 52 L (150-450) k/uL MPV 8.2 Neutrophils # [employer] Differential Comment Manual Slide Review Performed Poikilocytosis Moderate PT (9.0-12.0) sec INR (<1.2) APTT (22.0-30.0) sec Sodium (137-145) mmol/L Potassium (3.5-5.1) mmol/L Chloride (98-107) mmol/L Carbon Dioxide (22-30) mmol/L Anion Gap mmol/L BUN (7-17) mg/dL Creatinine (0.52-1.04) mg/dL Est GFR (CKD-EPI)AfAm (>60 ml/min/1.73 sqM) Est GFR (CKD-EPI)NonAf (>60 ml/min/1.73 sqM) Glucose (74-99) mg/dL Calcium (8.4-10.2) mg/dL Magnesium (1.6-2.3) mg/dL Total Bilirubin (0.2-1.3) mg/dL AST (14-36) U/L ALT (4-34) U/L Alkaline Phosphatase (38-126) U/L Troponin I (0.000-0.034) ng/mL Total Protein (6.3-8.2) g/dL Albumin (3.5-5.0) g/dL Urine Color Yellow Urine Appearance Clear (Clear) Urine pH 6.0 (5.0-8.0) Ur Specific [employer] [place] 1.024 (1.001-1.035) Urine Protein 3+ H (Negative) Urine Glucose (UA) Negative (Negative) Urine Ketones Negative (Negative) Urine Blood Trace H (Negative) Urine Nitrite Negative (Negative) Urine Bilirubin Negative (Negative) Urine Urobilinogen 2.0 (<2.0) mg/dL Ur Leukocyte Esterase Negative (Negative) Urine RBC 1 (0-5) /hpf Urine WBC 2 (0-5) /hpf Ur Squamous Epith Cells 2 (0-4) /hpf Hyaline Casts 1 (0-2) /lpf Urine Mucus Rare H (None) /hpf Influenza Type A (PCR) Not Detected (Not Detectd) Influenza Type B (PCR) Not Detected (Not Detectd) RSV (PCR) Not Detected (Not Detectd) SARS-CoV-2 (PCR) Not Detected (Not Detectd) 12/06/21 12/06/21 12/06/21 Range/Units 09:53 09:53 09:53 WBC (3.8-10.6) k/uL RBC (3.80-5.40) m/uL Hgb (11.4-16.0) gm/dL Hct (34.0-46.0) % MCV (80.0-100.0) fL MCH (25.0-35.0) pg MCHC (31.0-37.0) g/dL RDW (11.5-15.5) % Plt Count (150-450) k/uL MPV Neutrophils # Differential Comment Manual Slide Review Poikilocytosis PT 12.0 (9.0-12.0) sec INR 1.1 (<1.2) APTT 26.2 (22.0-30.0) sec Sodium 129 L (137-145) mmol/L Potassium 3.9 (3.5-5.1) mmol/L Chloride 97 L (98-107) mmol/L Carbon Dioxide 23 (22-30) mmol/L Anion Gap 9 mmol/L BUN 15 (7-17) mg/dL Creatinine 0.62 (0.52-1.04) mg/dL Est GFR (CKD-EPI)AfAm >90 (>60 ml/min/1.73 sqM) Est GFR (CKD-EPI)NonAf >90 (>60 ml/min/1.73 sqM) Glucose 156 H (74-99) mg/dL Calcium 7.8 L (8.4-10.2) mg/dL Magnesium 1.3 L (1.6-2.3) mg/dL Total Bilirubin 0.5 (0.2-1.3) mg/dL AST 51 H (14-36) U/L ALT 29 (4-34) U/L Alkaline Phosphatase 69 (38-126) U/L Troponin I <0.012 (0.000-0.034) ng/mL Total Protein 6.6 (6.3-8.2) g/dL Albumin 3.5 (3.5-5.0) g/dL Urine Color Urine Appearance (Clear) Urine pH (5.0-8.0) Ur Specific [employer] (1.001-1.035) Urine Protein (Negative) Urine Glucose (UA) (Negative) Urine Ketones (Negative) Urine Blood (Negative) Urine Nitrite (Negative) Urine Bilirubin (Negative) Urine Urobilinogen (<2.0) mg/dL Ur Leukocyte Esterase (Negative) Urine RBC (0-5) /hpf Urine WBC (0-5) /hpf Ur Squamous Epith Cells (0-4) /hpf Hyaline Casts (0-2) /lpf Urine Mucus (None) /hpf Influenza Type A (PCR) (Not Detectd) Influenza Type B (PCR) (Not Detectd) RSV (PCR) (Not Detectd) SARS-CoV-2 (PCR) (Not Detectd) Disposition Clinical Impression: Leukopenia Disposition: ADMITTED IP TO THIS HOSP Condition: Fair Referrals: Kenneth Govea MD [Primary Care Provider] - 1-2 days Decision Time: 11:15
[2021-12-06 10:15] LABS: ALT 29 U/L (4-34); AST 51 U/L (14-36); African American GFR (CKD) >90 (>60 ml/min/1.73 sqM); Albumin 3.5 g/dL (3.5-5.0); Alkaline Phosphatase 69 U/L (38-126); Anion Gap 9 mmol/L; Blood Urea Nitrogen 15 mg/dL (7-17); Calcium 7.8 mg/dL (8.4-10.2); Carbon Dioxide 23 mmol/L (22-30); Chloride 97 mmol/L (98-107); Glucose 156 mg/dL (74-99); Magnesium 1.3 mg/dL (1.6-2.3); Non-African American GFR(CKD) >90 (>60 ml/min/1.73 sqM); Potassium 3.9 mmol/L (3.5-5.1); Sodium 129 mmol/L (137-145); Total Bilirubin 0.5 mg/dL (0.2-1.3); Total Protein 6.6 g/dL (6.3-8.2)
[2021-12-06 10:19] LABS: Appearance,Urine Clear (Clear); Bilirubin,Urine Negative (Negative); Blood,Urine Trace (Negative); Color,Urine Yellow; Glucose,Urine (UA) Negative (Negative); Hyaline Casts,Urine 1 /lpf (0-2); Ketones,Urine Negative (Negative); Leukocyte Esterase,Urine Negative (Negative); Mucus,Urine Rare /hpf; Nitrite,Urine Negative (Negative); Protein,Urine 3+ (Negative); RBC,Urine 1 /hpf (0-5); Specific Gravity,Urine 1.024 (1.001-1.035); Squamous Epithelial Cell,Urine 2 /hpf (0-4); WBC,Urine 2 /hpf (0-5)
[2021-12-06 10:22] LABS: INR 1.1 (<1.2); Partial Thromboplastin Time 26.2 sec (22.0-30.0)
--- NOTE | 2021-12-06 10:29 | XR ---
EXAMINATION TYPE: XR chest 2V DATE OF EXAM: 12/06/2021 COMPARISON: None INDICATION: Fever short of breath TECHNIQUE: Single frontal view of the chest is obtained. FINDINGS: The heart size is normal. The pulmonary vasculature is normal. The lungs are clear. There is elevation of the right diaphragm. IMPRESSION: 1. No acute pulmonary process.
[2021-12-06 10:30] LABS: HCT 22.9 % (34.0-46.0); MCH 31.5 pg (25.0-35.0); MCHC 35.1 g/dL (31.0-37.0); MCV 89.8 fL (80.0-100.0); Mean Platelet Volume 8.2; Poikilocytosis Moderate; RBC 2.55 m/uL (3.80-5.40); RDW 15.5 % (11.5-15.5)
[2021-12-06 10:32] LABS: WBC 0.7 k/uL (3.8-10.6)
[2021-12-06 11:13] LABS: Platelet Count 52 k/uL (150-450)
[2021-12-06] MEDS ORDERED: NALOXONE 0.4 MG/ML 1 ML VIAL IV PRN (11:13)
[2021-12-06] MEDS ORDERED: Magnesium Replacement Protocol 1 EACH MISC MISCELLANE PRN (12:32)
[2021-12-06] MEDS: LACTATED RINGERS 1,000 ML IV SCH ×2 (12:39→13:51)
[2021-12-06 12:54] LABS: Glucose,Whole Blood 154 mg/dL (70-110)
[2021-12-06] MEDS: MAGNESIUM SULFATE-D5W PMX 1 GM in DEXTROSE/WATER 1 100ML.BAG IVPB SCH ×3 (13:48→16:48)
--- NOTE | 2021-12-06 14:37 | P.HPIM ---
History of Present Illness H&P Date: 12/06/21 Chief Complaint: fatigue Patient is a 65-year-old female with past medical history of hypertension, dyslipidemia presenting with 2 weeks of fatigue, low-grade fevers, chills, occasional abdominal pain. She claims that about 2 weeks ago she had mild flulike symptoms, and since then she has not been able to function at her optimal level. She also had medication changes about one month ago when she was previously on lisinopril, developed cough, and then changed to losartan. She denies any new lumps noted on her body. She denies any sick contacts. She denies any family history of leukemia or lymphoma. Currently, she denies any chest pain, palpitations, nausea, vomiting, urinary or bowel complaints. She denies any recent travel history. In the ED, her vital signs were within normal limits. Her lab work was consistent with pancytopenia, hyponatremia, hypomagnesemia. Her flu, RSV, COVID-19 panel was negative. Chest x-ray was unremarkable. EKG showed normal sinus rhythm. She was admitted for further workup. Patient seen and examined at bedside. Pertinent positives and negatives as discussed in HPI, a complete review of systems was performed and all other systems are negative. Vital signs reviewed General: nontoxic, no distress, appears at stated age, appears tired Derm: warm, dry Head: atraumatic, normocephalic, symmetric Eyes: EOMI, no lid lag, anicteric sclera, pupils equal round reactive to light ENT: Nose and ears atraumatic Neck: No thyromegaly, supple Mouth: no lip lesion, dry membranes moist Cardiovascular: S1S2 reg, no murmur, no edema Lungs: clear to auscultation bilateral, no rhonchi, no rales, no wheeze, no ac cessory muscle use Abdominal: soft, nontender to palpation, no guarding, no appreciable organomegaly, normal bowel sounds Ext: no gross muscle atrophy, muscle strength muscle strength 5 out of 5 in all 4 extremities, no contractures Neuro: CN II-XII grossly intact Psych: Alert, oriented, appropriate affect Assessment/Plan: Pancytopenia - Possibly in the setting of recent viral illness, drug reaction -Malignancy on differential as well -Hematology consulted -Labs ordered -hold losartan for now Hypovolemic hyponatremia Poor appetite -IV fluids Hypomagnesemia -Replete and monitor Hypertension -Continue verapamil, hold losartan DVT prophylaxis - SCD The patient is admitted with an anticipated greater than 2 midnight stay for evaluation of pancytopenia. Surrogate decision-maker: CODE STATUS: Full code Anticipated discharge date: 12/[address]: Home A total of 49 minutes was spent on the care of this complex patient more than 50% of the time was spent in counseling and care coordination. Past Medical History Past Medical History: Diabetes Mellitus, GERD/Reflux, Hypertension Additional Past Medical History / Comment(s): heart palpatations, neuropathy salvador feet, irregular bowel movements, benign nodules in lungs since about 2017, uterine fibroids, gastric ulcer, enlarged heart, uti's, states everything tastes salty since 2-3 weeks ago. History of Any Multi-Drug Resistant Organisms: None Reported Past Surgical History: Section, Cholecystectomy, Hernia Repair, Orthopedic Surgery Additional Past Surgical History / Comment(s): surgery for fx nose, tailbone cyst removed, left oophorectomy, partial rt oophorectomy, right shoulder surgery, hernia repair during gallbladder surgery, uterine fibroids removed Past Anesthesia/Blood Transfusion Reactions: Previous Problems w/ Anesthesia, Motion Sickness, Postoperative Nausea & Vomiting (PONV) Additional Past Anesthesia/Blood Transfusion Reaction / Comment(s): "very hard coming out of anesthesia" Past Psychological History: No Psychological Hx Reported Smoking Status: Never smoker Past Alcohol Use History: None Reported, Rare Past Drug Use History: None Reported - Past Family History Father Family Medical History: Congestive Heart Failure (CHF) Additional Family Medical History / Comment(s): at age 83, possibly from heart issues- unsure. Mother Family Medical History: Deep Vein Thrombosis (DVT) Additional Family Medical History / Comment(s): deseased at age 77 from cva Medications and Allergies Home Medications Medication Instructions Recorded Confirmed Type Aspirin EC [Ecotrin Low Dose] 81 mg PO DAILY 01/30/18 12/06/21 History Cetirizine HCl 10 mg PO DAILY PRN 01/30/18 12/06/21 History [place]-3 Fatty Acids/Fish Oil [Fish 1 cap PO DAILY 01/30/18 12/06/21 History Oil 1,000 mg Softgel] Verapamil HCl [Verelan Pm] 100 mg PO HS 01/30/18 12/06/21 History metFORMIN HCL [Glucophage] 1,000 mg PO DAILY 01/30/18 12/06/21 History Fluticasone Propionate 2 spray EA NOSTRIL DAILY PRN 12/06/21 12/06/21 History Losartan Potassium [Cozaar] 25 mg PO DAILY 12/06/21 12/06/21 History Allergies Allergy/AdvReac Type Severity Reaction Status Date / Time hydrocodone [From Vicodin] AdvReac Nausea & Verified 12/06/21 12:33 Vomiting & Diarrhea latex AdvReac Itching Verified 12/06/21 12:33 Physical Exam Vitals: Vital Signs Temp Pulse Pulse Resp BP BP Pulse Ox 12/06/21 11:59 98.7 F 95 18 138/82 100 12/06/21 11:34 72 18 112/68 98 12/06/21 09:21 97.6 F 94 20 114/71 98 Intake and Output 12/05/21 12/06/21 12/06/21 22:59 06:59 14:59 Other: Voiding Method Toilet Weight 63.503 kg Results CBC & Chem 7: 12/06/21 09:53 12/06/21 09:53 Labs: Abnormal Lab Results - Last 24 Hours (Table) 12/06/21 12/06/21 12/06/21 Range/Units 09:53 09:53 09:53 WBC 0.7 L* (3.8-10.6) k/uL RBC 2.55 L (3.80-5.40) m/uL Hgb 8.0 L (11.4-16.0) gm/dL Hct 22.9 L (34.0-46.0) % Plt Count 52 L (150-450) k/uL Sodium 129 L (137-145) mmol/L Chloride 97 L (98-107) mmol/L Glucose 156 H (74-99) mg/dL POC Glucose (mg/dL) (70-110) mg/dL Calcium 7.8 L (8.4-10.2) mg/dL Magnesium 1.3 L (1.6-2.3) mg/dL AST 51 H (14-36) U/L Urine Protein 3+ H (Negative) Urine Blood Trace H (Negative) Urine Mucus Rare H (None) /hpf 12/06/21 Range/Units 12:53 WBC (3.8-10.6) k/uL RBC (3.80-5.40) m/uL Hgb (11.4-16.0) gm/dL Hct (34.0-46.0) % Plt Count (150-450) k/uL Sodium (137-145) mmol/L Chloride (98-107) mmol/L Glucose (74-99) mg/dL POC Glucose (mg/dL) 154 H (70-110) mg/dL Calcium (8.4-10.2) mg/dL Magnesium (1.6-2.3) mg/dL AST (14-36) U/L Urine Protein (Negative) Urine Blood (Negative) Urine Mucus (None) /hpf Thrombosis Risk Factor Assmnt - Choose All That Apply Each Risk Factor Represents 2 Points: Age 61-74 years Thrombosis Risk Factor Assessment Total Risk Factor Score: 2 Thrombosis Risk Factor Assessment Level: Low Risk
--- NOTE | 2021-12-06 16:52 | P.CONS ---
History of Present Illness - Reason for Consult Consult date: 12/06/21 Concern of B symptoms Requesting physician: Chris Hess - History of Present Illness Mrs. Smith presented with week long progressive symptoms of SOB, night sweats, fevers, weight loss. She has multiple co morbidies and polypharm. Per med chart History of blood clots. Denies any lower extremity symptoms. Patient does not take any anticoagulant medications. On admission she is pancytopenic and neutropenic. No history of cancer or autoimmune 2 weeks ago she said she did have a cold COVID booster 2 months ago No evidence of immunosuppression medications Review of Systems All systems: negative Constitutional: Reports as per HPI Past Medical History Past Medical History: Diabetes Mellitus, GERD/Reflux, Hypertension Additional Past Medical History / Comment(s): heart palpatations, neuropathy salvador feet, irregular bowel movements, benign nodules in lungs since about 2017, uterine fibroids, gastric ulcer, enlarged heart, uti's, states everything tastes salty since 2-3 weeks ago. History of Any Multi-Drug Resistant Organisms: None Reported Past Surgical History: Section, Cholecystectomy, Hernia Repair, Orthopedic Surgery Additional Past Surgical History / Comment(s): surgery for fx nose, tailbone cyst removed, left oophorectomy, partial rt oophorectomy, right shoulder surgery, hernia repair during gallbladder surgery, uterine fibroids removed Past Anesthesia/Blood Transfusion Reactions: Previous Problems w/ Anesthesia, Motion Sickness, Postoperative Nausea & Vomiting (PONV) Additional Past Anesthesia/Blood Transfusion Reaction / Comm: "very hard coming out of anesthesia" Past Psychological History: No Psychological Hx Reported Smoking Status: Never smoker Past Alcohol Use History: None Reported, Rare Past Drug Use History: None Reported - Past Family History Father Family Medical History: Congestive Heart Failure (CHF) Additional Family Medical History / Comment(s): at age 83, possibly from heart issues- unsure. Mother Family Medical History: Deep Vein Thrombosis (DVT) Additional Family Medical History / Comment(s): deseased at age 77 from cva Medications and Allergies Home Medications Medication Instructions Recorded Confirmed Type Aspirin EC [Ecotrin Low Dose] 81 mg PO DAILY 01/30/18 12/06/21 History Cetirizine HCl 10 mg PO DAILY PRN 01/30/18 12/06/21 History [place]-3 Fatty Acids/Fish Oil [Fish 1 cap PO DAILY 01/30/18 12/06/21 History Oil 1,000 mg Softgel] Verapamil HCl [Verelan Pm] 100 mg PO HS 01/30/18 12/06/21 History metFORMIN HCL [Glucophage] 1,000 mg PO DAILY 01/30/18 12/06/21 History Fluticasone Propionate 2 spray EA NOSTRIL DAILY PRN 12/06/21 12/06/21 History Losartan Potassium [Cozaar] 25 mg PO DAILY 12/06/21 12/06/21 History Allergies Allergy/AdvReac Type Severity Reaction Status Date / Time hydrocodone [From Vicodin] AdvReac Nausea & Verified 12/06/21 12:33 Vomiting & Diarrhea latex AdvReac Itching Verified 12/06/21 12:33 Physical Exam Vitals: Vital Signs Temp Pulse Pulse Resp BP BP Pulse Ox 12/06/21 11:59 98.7 F 95 18 138/82 100 12/06/21 11:34 72 18 112/68 98 12/06/21 09:21 97.6 F 94 20 114/71 98 Intake and Output 12/05/21 12/06/21 12/06/21 22:59 06:59 14:59 Other: Voiding Method Toilet Weight 63.503 kg - Constitutional General appearance: cooperative - EENT Eyes: EOMI ENT: NA/AT - Neck Neck: normal ROM - Respiratory Respiratory: bilateral: diminished - Cardiovascular Rhythm: regularly irregular - Gastrointestinal General gastrointestinal: soft - Integumentary Integumentary: pale - Musculoskeletal Musculoskeletal: generalized weakness - Psychiatric Psychiatric: A&O x's 3 Results CBC & Chem 7: 12/06/21 09:53 12/06/21 09:53 Labs: Abnormal Lab Results - Last 24 Hours (Table) 12/06/21 12/06/21 12/06/21 Range/Units 09:53 09:53 09:53 WBC 0.7 L* (3.8-10.6) k/uL RBC 2.55 L (3.80-5.40) m/uL Hgb 8.0 L (11.4-16.0) gm/dL Hct 22.9 L (34.0-46.0) % Plt Count 52 L (150-450) k/uL Sodium 129 L (137-145) mmol/L Chloride 97 L (98-107) mmol/L Glucose 156 H (74-99) mg/dL Calcium 7.8 L (8.4-10.2) mg/dL Magnesium 1.3 L (1.6-2.3) mg/dL AST 51 H (14-36) U/L Urine Protein 3+ H (Negative) Urine Blood Trace H (Negative) Urine Mucus Rare H (None) /hpf Abdominal x-ray: report reviewed Assessment and Plan (1) Pancytopenia Narrative/Plan: Pancytopenia work-up ordered Await Stat blood cultures, viral swab and full work-up then would start empiric Vancomycin and Cefepime due to neutropenia, ask ID to evaluate If platelets <50 Stop AC (Aspirin and fish oil) If <10K transfuse If hgb <7 transfuse Current Visit: Yes Status: Acute Code(s): D61.818 - OTHER PANCYTOPENIA SNOMED Code(s): 876453245 (2) Neutropenic fever Current Visit: Yes Status: Acute Code(s): D70.9 - NEUTROPENIA, UNSPECIFIED; R50.81 - FEVER PRESENTING WITH CONDITIONS CLASSIFIED ELSEWHERE SNOMED Code(s): 194510597 Plan: Await initial work-up Dr. Parisi to re-evaluate and determine if Bone marrow biopsy needed
[2021-12-06 17:00] LABS: Protein, Total 6.4 g/dL (6.2-8.2)
[2021-12-06 17:00] LABS: % Iron Saturation 24.65 (12.00-45.00)
[2021-12-06 17:48] LABS: Glucose,Whole Blood 117 mg/dL (70-110)
[2021-12-06] MEDS: VERAPAMIL SR 120 MG TABLET.ER PO SCH (20:42)
[2021-12-06 22:21] LABS: Glucose,Whole Blood 165 mg/dL (70-110)
[2021-12-06 22:53] LABS: Hepatitis A Antibody IgM Nonreactive (Nonreactive); Hepatitis B Core IgM Nonreactive (Nonreactive); Hepatitis C IgG Antibody Nonreactive (Nonreactive)
[2021-12-07 07:11] LABS: Glucose,Whole Blood 141 mg/dL (70-110)
[2021-12-07] MEDS: ASPIRIN 81 MG PO SCH (07:55)
[2021-12-07] MEDS ORDERED: NON FORMULARY DRUG (Omega-3 Fatty Acids/Fish Oil [Fish Oil 1,000 Mg Softgel] 1 EACH Capsul PO SCH (09:00)
[2021-12-07 11:19] LABS: Glucose,Whole Blood 173 mg/dL (70-110)
--- NOTE | 2021-12-07 11:27 | P.PN ---
Subjective Progress Note Date: 12/07/21 Principal diagnosis: fatigue Hospital Course: 65-year-old female with past medical history of hypertension, dyslipidemia presenting with 2 weeks of fatigue, low-grade fevers, chills, occasional abdominal pain. Patient found to be pancytopenic, dehydrated. Hematology consulted. Labs pending. Subjective: Patient seen and examined at bedside. No acute events overnight. She claims that she has been feeling better since getting fluids. She denies any chest pain, shortness of breath, abdominal pain, urinary or bowel complaints. Pertinent positives and negatives as discussed above, a complete review of systems was performed and all other systems are negative. Vitals Signs Reviewed. General: nontoxic, no distress, appears at stated age Derm: warm, dry Head: atraumatic, normocephalic, symmetric Eyes: EOMI, no lid lag, anicteric sclera Mouth: no lip lesion, mucus membranes moist Cardiovascular: S1S2 reg, no murmur Lungs: CTA bilateral, no rhonchi, no rales , no accessory muscle use Abdominal: soft, nontender to palpation, no guarding, no appreciable organomegaly Ext: no gross muscle atrophy, no edema, no contractures Neuro: CN II-XI grossly intact, no focal neuro deficits Psych: Alert, oriented, appropriate affect Assessment and Plan: Pancytopenia - Possibly in the setting of recent viral illness, drug reaction -Malignancy on differential as well -Hematology consulted -Labs ordered -hold losartan for now Possible neutropenic fever -Started on IV cefepime -ID consult Hypovolemic hyponatremia Poor appetite -IV fluids Hypomagnesemia -Resolved Hypertension -Continue verapamil, hold losartan DVT prophylaxis - SCD Code status: Full code Anticipated discharge place: Home Anticipated discharge time: 1-2 days Objective - Vital Signs Vital signs: Vital Signs Temp 99.6 F 12/07/21 06:30 Pulse 88 12/07/21 04:39 Resp 17 12/07/21 04:39 BP 98/59 12/07/21 04:39 Pulse Ox 93 L 12/07/21 04:39 FiO2 Intake & Output 12/06/21 12/07/21 12/07/21 18:59 06:59 18:59 Intake Total 400 590 Balance 400 590 Weight 63.503 kg Intake: Oral 400 590 Other: Voiding Method Toilet Toilet Toilet # Voids 2 2 - Labs CBC & Chem 7: 12/06/21 09:53 12/06/21 09:53 Labs: Abnormal Lab Results - Last 24 Hours (Table) 12/06/21 12/06/21 12/06/21 Range/Units 09:35 09:35 12:43 ESR 58 H (0-20) mm/hr POC Glucose (mg/dL) (70-110) mg/dL Hemoglobin A1c 6.3 H (0.0-6.0) % Transferrin 173.0 L (204.0-354.0) mg/dL Vitamin D 25-Hydroxy 28.9 L (30.0-100.0) ng/mL 12/06/21 12/06/21 12/06/21 Range/Units 12:53 17:46 20:28 ESR (0-20) mm/hr POC Glucose (mg/dL) 154 H 117 H 165 H (70-110) mg/dL Hemoglobin A1c (0.0-6.0) % Transferrin (204.0-354.0) mg/dL Vitamin D 25-Hydroxy (30.0-100.0) ng/mL 12/07/21 12/07/21 Range/Units 07:09 11:18 ESR (0-20) mm/hr POC Glucose (mg/dL) 141 H 173 H (70-110) mg/dL Hemoglobin A1c (0.0-6.0) % Transferrin (204.0-354.0) mg/dL Vitamin D 25-Hydroxy (30.0-100.0) ng/mL
[2021-12-07] MEDS: CEFEPIME 2 GM in SODIUM CHLORIDE 0.9% 100 ML IVPB SCH ×2 (12:38→19:57)
[2021-12-07 12:45] LABS: HCT 22.9 % (34.0-46.0); Hypochromasia Slight; MCH 32.9 pg (25.0-35.0); MCV 93.9 fL (80.0-100.0); Mean Platelet Volume 8.2; Poikilocytosis Slight; RBC 2.43 m/uL (3.80-5.40); RDW 15.1 % (11.5-15.5)
[2021-12-07 12:52] LABS: WBC 0.9 k/uL (3.8-10.6)
[2021-12-07 12:53] LABS: Platelet Count 61 k/uL (150-450)
[2021-12-07 12:55] LABS: African American GFR (CKD) >90 (>60 ml/min/1.73 sqM); Anion Gap 4 mmol/L; Blood Urea Nitrogen 14 mg/dL (7-17); Carbon Dioxide 27 mmol/L (22-30); Chloride 100 mmol/L (98-107); Glucose 127 mg/dL (74-99); Non-African American GFR(CKD) >90 (>60 ml/min/1.73 sqM); Potassium 4.4 mmol/L (3.5-5.1); Sodium 131 mmol/L (137-145)
[2021-12-07 13:07] LABS: Hepatitis B Surface Antigen Nonreactive (Nonreactive)
[2021-12-07 14:24] LABS: Albumin 3.19 g/dL (3.80-4.90); Gamma Globulin 1.31 g/dL (0.70-1.50)
[2021-12-07 17:08] LABS: Glucose,Whole Blood 147 mg/dL (70-110)
[2021-12-07] MEDS: ACETAMINOPHEN TAB 325 MG TAB PO PRN (19:56)
[2021-12-07 20:16] LABS: Glucose,Whole Blood 169 mg/dL (70-110)
[2021-12-07] MEDS: VERAPAMIL SR 120 MG TABLET.ER PO SCH (22:26)
[2021-12-08] MEDS: CEFEPIME 2 GM in SODIUM CHLORIDE 0.9% 100 ML IVPB SCH ×3 (03:54→21:25)
[2021-12-08 07:11] LABS: Glucose,Whole Blood 116 mg/dL (70-110)
--- NOTE | 2021-12-08 07:34 | P.CONS ---
History of Present Illness - Reason for Consult Consult date: 12/07/21 Neutropenic fever Requesting physician: Naresh Diaz - Chief Complaint Fever x few days - History of Present Illness Patient is a 65-year-old female with a past medical history pertinent for hyperlipidemia hypertension present to the hospital for evaluation of fatigue low-grade fever chills and this patient symptom has been going on for about a week before presentation to the hospital also have some mild flulike illness the patient denies having any significant headache or URI symptoms currently denies having any chest pain or shortness with occasional cough no nausea no vomiting and no diarrhea on presentation to the hospital the patient was afebrile she did spike low-grade fever of 100 F early this morning the patient is afebrile since then patient was also noticed to be pancytopenic with a white count of 0.9 patient did have normal kidney function liver enzymes has been normal urine has been negative patient did have a negative hepatitis RSV influenza and COVID testing patient did have a chest x-ray no acute cardiopulmonary disease patient was started on vancomycin and cefepime infectious disease was consulted for further management of antibiotic therapy Review of Systems Positive point has been mentioned in the HPI rest of the systems are negative Past Medical History Past Medical History: Diabetes Mellitus, GERD/Reflux, Hypertension Additional Past Medical History / Comment(s): heart palpatations, neuropathy salvador feet, irregular bowel movements, benign nodules in lungs since about 2017, uterine fibroids, gastric ulcer, enlarged heart, uti's, states everything tastes salty since 2-3 weeks ago. History of Any Multi-Drug Resistant Organisms: None Reported Past Surgical History: Section, Cholecystectomy, Hernia Repair, Orthopedic Surgery Additional Past Surgical History / Comment(s): surgery for fx nose, tailbone cyst removed, left oophorectomy, partial rt oophorectomy, right shoulder surgery, hernia repair during gallbladder surgery, uterine fibroids removed Past Anesthesia/Blood Transfusion Reactions: Previous Problems w/ Anesthesia, Motion Sickness, Postoperative Nausea & Vomiting (PONV) Additional Past Anesthesia/Blood Transfusion Reaction / Comm: "very hard coming out of anesthesia" Past Psychological History: No Psychological Hx Reported Smoking Status: Never smoker Past Alcohol Use History: None Reported, Rare Past Drug Use History: None Reported - Past Family History Father Family Medical History: Congestive Heart Failure (CHF) Additional Family Medical History / Comment(s): at age 83, possibly from heart issues- unsure. Mother Family Medical History: Deep Vein Thrombosis (DVT) Additional Family Medical History / Comment(s): deseased at age 77 from cva Medications and Allergies Home Medications Medication Instructions Recorded Confirmed Type [address]-3 Fatty Acids/Fish Oil [Fish 1 cap PO DAILY 01/30/18 12/16/21 History Oil 1,000 mg Softgel] Verapamil HCl [Verelan Pm] 100 mg PO HS 01/30/18 12/16/21 History metFORMIN HCL [Glucophage] 1,000 mg PO DAILY 01/30/18 12/16/21 History Fluconazole [Diflucan] 100 mg PO DAILY 12/16/21 12/16/21 History Allergies Allergy/AdvReac Type Severity Reaction Status Date / Time hydrocodone [From Vicodin] AdvReac Nausea & Verified 12/16/21 11:54 Vomiting & Diarrhea latex AdvReac Itching Verified 12/16/21 11:54 Physical Exam Vitals: Vital Signs Temp Pulse Resp BP BP Pulse Ox 12/07/21 11:38 98.3 F 92 16 101/66 98 12/07/21 06:30 99.6 F 12/07/21 04:39 100.0 F H 88 17 98/59 93 L 12/06/21 20:41 90 103/65 12/06/21 17:53 99.5 F 88 16 129/70 95 Intake and Output 12/07/21 12/07/21 12/07/21 06:59 14:59 22:59 Intake Total 590 Balance 590 Intake: Oral 590 Other: Voiding Method Toilet # Voids 2 GENERAL DESCRIPTION: Middle-aged female lying in bed, no distress. No tachypnea or accessory muscle of respiration use. HEENT: Shows Pallor , no scleral icterus. Oral mucous membrane is dry. No pharyngeal erythema or thrush NECK: Trachea central, no thyromegaly. LUNGS: Unlabored breathing. Clear to auscultation anteriorly. No wheeze or crackle. HEART: S1, S2, regular rate and rhythm. No loud murmur ABDOMEN: Soft, no tenderness , guarding or rigidity, no organomegaly EXTREMITIES: No edema of feet. SKIN: No rash, no masses palpable. NEUROLOGICAL: The patient is awake, alert, oriented x3, mood and affect normal. Results CBC & Chem 7: 12/11/21 05:53 12/10/21 05:58 Labs: Abnormal Lab Results - Last 24 Hours (Table) 12/06/21 12/06/21 12/06/21 Range/Units 09:35 12:43 12:43 WBC (3.8-10.6) k/uL RBC (3.80-5.40) m/uL Hgb (11.4-16.0) gm/dL Hct (34.0-46.0) % Plt Count (150-450) k/uL Sodium (137-145) mmol/L Glucose (74-99) mg/dL POC Glucose (mg/dL) (70-110) mg/dL Hemoglobin A1c 6.3 H (0.0-6.0) % Calcium (8.4-10.2) mg/dL Transferrin 173.0 L (204.0-354.0) mg/dL Albumin (PEP) 3.19 L (3.80-4.90) g/dL Ppdxe-8-Twasbwwst 0.41 H (0.10-0.40) g/dL Vitamin D 25-Hydroxy 28.9 L (30.0-100.0) ng/mL 12/06/21 12/06/21 12/07/21 Range/Units 17:46 20:28 07:09 WBC (3.8-10.6) k/uL RBC (3.80-5.40) m/uL Hgb (11.4-16.0) gm/dL Hct (34.0-46.0) % Plt Count (150-450) k/uL Sodium (137-145) mmol/L Glucose (74-99) mg/dL POC Glucose (mg/dL) 117 H 165 H 141 H (70-110) mg/dL Hemoglobin A1c (0.0-6.0) % Calcium (8.4-10.2) mg/dL Transferrin (204.0-354.0) mg/dL Albumin (PEP) (3.80-4.90) g/dL Vndxh-4-Pxbkysepm (0.10-0.40) g/dL Vitamin D 25-Hydroxy (30.0-100.0) ng/mL 12/07/21 12/07/21 12/07/21 Range/Units 11:18 12:15 12:15 WBC 0.9 L* (3.8-10.6) k/uL RBC 2.43 L (3.80-5.40) m/uL Hgb 8.0 L (11.4-16.0) gm/dL Hct 22.9 L (34.0-46.0) % Plt Count 61 L (150-450) k/uL Sodium 131 L (137-145) mmol/L Glucose 127 H (74-99) mg/dL POC Glucose (mg/dL) 173 H (70-110) mg/dL Hemoglobin A1c (0.0-6.0) % Calcium 8.0 L (8.4-10.2) mg/dL Transferrin (204.0-354.0) mg/dL Albumin (PEP) (3.80-4.90) g/dL Lgqru-6-Cuxsgyiav (0.10-0.40) g/dL Vitamin D 25-Hydroxy (30.0-100.0) ng/mL Microbiology - Last 24 Hours (Table) 12/06/21 12:43 Blood Culture - Preliminary Blood No Growth after 24 hours Assessment and Plan (1) Neutropenic fever Status: Acute Code(s): D70.9 - NEUTROPENIA, UNSPECIFIED; R50.81 - FEVER PRESENTING WITH CONDITIONS CLASSIFIED ELSEWHERE SNOMED Code(s): 586343384 Plan: 1patient presented to hospital generalized weakness low-grade fever in this patient noted to be pancytopenic with a question of possible hematological malignancy infectious etiology less likely but not entirely excluded 2we will obtain a CRP sed rate and procalcitonin. 3we will obtain a CT abdominal pelvis to complete the work-up. 4continue with cefepime while waiting for the culture to be finalized. My statement Time with Patient: Greater than 30
[2021-12-08] MEDS: ASPIRIN 81 MG PO SCH (08:29)
[2021-12-08] MEDS: IOPAMIDOL CONTRAST (ORAL USE) VIAL PO PRN ×2 (10:57→12:15)
[2021-12-08 11:13] LABS: Glucose,Whole Blood 145 mg/dL (70-110)
--- NOTE | 2021-12-08 12:03 | P.PN ---
Subjective Progress Note Date: 12/08/21 Principal diagnosis: fatigue Hospital Course: 65-year-old female with past medical history of hypertension, dyslipidemia presenting with 2 weeks of fatigue, low-grade fevers, chills, occasional abdominal pain. Patient found to be pancytopenic, dehydrated. Hematology consulted. Work up pending. Patient is also have neutropenic fevers. ID consulted. On IV abx. CT abd/pel pending. Subjective: Patient seen and examined at bedside. No acute events overnight. She denies any chest pain, shortness of breath, abdominal pain, urinary or bowel complaints. Pertinent positives and negatives as discussed above, a complete review of systems was performed and all other systems are negative. Vitals Signs Reviewed. General: nontoxic, no distress, appears at stated age Derm: warm, dry Head: atraumatic, normocephalic, symmetric Eyes: EOMI, no lid lag, anicteric sclera Mouth: no lip lesion, mucus membranes moist Cardiovascular: S1S2 reg, no murmur Lungs: CTA bilateral, no rhonchi, no rales , no accessory muscle use Abdominal: soft, nontender to palpation, no guarding, no appreciable organomegaly Ext: no gross muscle atrophy, no edema, no contractures Neuro: CN II-XI grossly intact, no focal neuro deficits Psych: Alert, oriented, appropriate affect Assessment and Plan: Pancytopenia -Possibly in the setting of recent viral illness, drug reaction vs malignancy -Hematology consulted -Labs ordered, work up pending -hold losartan for now Neutropenic fever -on IV cefepime -ID consult -CT abd/pel pending Hypovolemic hyponatremia Poor appetite -IV fluids Hypomagnesemia -Resolved Hypertension -Continue verapamil, hold losartan DVT prophylaxis - SCD Code status: Full code Anticipated discharge place: Home Anticipated discharge time: 1-2 days Objective - Vital Signs Vital signs: Vital Signs Temp 97.9 F 12/08/21 04:15 Pulse 69 12/08/21 04:15 Resp 18 12/08/21 04:15 BP 124/73 12/08/21 04:15 Pulse Ox 99 12/08/21 04:15 FiO2 Intake & Output 12/07/21 12/08/21 12/08/21 18:59 06:59 18:59 Intake Total 850 500 Balance 850 500 Intake: IV 100 Cefepime 2 gm In Sodium 100 Chloride 0.9% 100 ml @ 25 mls/hr IVPB Q8H [facility] Rx#: [id number] Oral 750 500 Other: Voiding Method Toilet Toilet Toilet # Voids 3 4 - Labs CBC & Chem 7: 12/07/21 12:15 12/07/21 12:15 Labs: Abnormal Lab Results - Last 24 Hours (Table) 12/06/21 12/07/21 12/07/21 Range/Units 12:43 12:15 12:15 WBC 0.9 L* (3.8-10.6) k/uL RBC 2.43 L (3.80-5.40) m/uL Hgb 8.0 L (11.4-16.0) gm/dL Hct 22.9 L (34.0-46.0) % Plt Count 61 L (150-450) k/uL Sodium 131 L (137-145) mmol/L Glucose 127 H (74-99) mg/dL POC Glucose (mg/dL) (70-110) mg/dL Calcium 8.0 L (8.4-10.2) mg/dL Albumin (PEP) 3.19 L (3.80-4.90) g/dL Zqdlh-5-Ivtestvvr 0.41 H (0.10-0.40) g/dL 12/07/21 12/07/21 12/08/21 Range/Units 17:07 20:12 07:10 WBC (3.8-10.6) k/uL RBC (3.80-5.40) m/uL Hgb (11.4-16.0) gm/dL Hct (34.0-46.0) % Plt Count (150-450) k/uL Sodium (137-145) mmol/L Glucose (74-99) mg/dL POC Glucose (mg/dL) 147 H 169 H 116 H (70-110) mg/dL Calcium (8.4-10.2) mg/dL Albumin (PEP) (3.80-4.90) g/dL Wpoum-7-Xebxsdfla (0.10-0.40) g/dL 12/08/21 Range/Units 11:12 WBC (3.8-10.6) k/uL RBC (3.80-5.40) m/uL Hgb (11.4-16.0) gm/dL Hct (34.0-46.0) % Plt Count (150-450) k/uL Sodium (137-145) mmol/L Glucose (74-99) mg/dL POC Glucose (mg/dL) 145 H (70-110) mg/dL Calcium (8.4-10.2) mg/dL Albumin (PEP) (3.80-4.90) g/dL Sucks-2-Ozuxomxno (0.10-0.40) g/dL Microbiology - Last 24 Hours (Table) 12/06/21 12:43 Blood Culture - Preliminary Blood No Growth after 24 hours
[2021-12-08 12:31] LABS: Free Lambda Lt Chain Qnt, Seru 3.69 mg/dL (0.57-2.63)
--- NOTE | 2021-12-08 13:18 | CT ---
EXAMINATION TYPE: CT abdomen pelvis w con DATE OF EXAM: 12/08/2021 HISTORY: Fever. CT DLP: 1820.7mGycm Automated Exposure Control for Dose Reduction was Utilized. CONTRAST: CT scan of the abdomen and pelvis is performed with oral and with IV Contrast, patient injected with 100ml mL of Isovue 300. COMPARISON: Outside CT 2018 FINDINGS: LUNG BASES: There is 12 x 8 mm right lower lobe nodule axial image 1 unchanged from prior study serie s 2 image 5. Mild bibasilar linear scarring and/or atelectasis is redemonstrated.. LIVER/GB: Cholecystectomy clips are redemonstrated. Prominent vessels near the inferior right hepatic lobe redemonstrated PANCREAS: No significant abnormality is seen. SPLEEN: Small posterior inferior splenule axial image 32 redemonstrated. ADRENALS: No significant abnormality is seen. KIDNEYS: Symmetric cortical medullary uptake and excretion without hydronephrosis seen bilaterally. S ubcentimeter low dense lesions lower pole right kidney too small to further characterize presumed lizzeth ign. BOWEL: Oral contrast reaches the right colon. No suspicious small or large bowel dilatation. Divertic katlyn throughout the colon without CT evidence for acute diverticulitis. UTERUS/ADNEXA: Anteverted uterus. Lobulated contour suggestive of underlying fibroids. LYMPH NODES: No greater than 1cm abdominal or pelvic lymph nodes are appreciated. OSSEOUS STRUCTURES: Xtbzckvc-ur-fmvaky multilevel disc space narrowing and spurring throughout the sp ine. Multilevel vacuum disc phenomenon. Bridging osteophytes in the thoracic spine redemonstrated. Po sterior spur disc complexes efface the anterior thecal sac at multiple levels. Underlying scoliosis r edemonstrated. Moderate to severe joint space loss and spurring of both hip joints redemonstrated. OTHER: No significant additional abnormality is seen. IMPRESSION: Colonic diverticulosis without CT evidence for acute diverticulitis. No well-formed fluid collection or abscess seen. Source of patient's fever not identified.
[2021-12-08 15:40] LABS: Procalcitonin 0.08 ng/mL (0.02-0.09)
[2021-12-08 17:08] LABS: Glucose,Whole Blood 151 mg/dL (70-110)
[2021-12-08 19:37] LABS: Rheumatoid Factor, Qnt <10 IU/mL (0-15)
[2021-12-08 20:24] LABS: Glucose,Whole Blood 141 mg/dL (70-110)
[2021-12-08] MEDS: VERAPAMIL SR 120 MG TABLET.ER PO SCH (21:25)
[2021-12-09] MEDS: CEFEPIME 2 GM in SODIUM CHLORIDE 0.9% 100 ML IVPB SCH ×3 (04:10→19:53)
[2021-12-09 06:06] LABS: Methylmalonic Acid 0.17 umol/L (<0.40)
[2021-12-09 07:19] LABS: Glucose,Whole Blood 130 mg/dL (70-110)
--- NOTE | 2021-12-09 07:40 | P.PN ---
Subjective Progress Note Date: 12/08/21 Principal diagnosis: Fever Patient is a 65-year old female past medical history of hypertension hyperlipidemia presented to hospital with fatigue low-grade fever in this patient was noticed to be pancytopenic infectious disease was consulted because of her fever. On today's evaluation that is 12/08/2021 patient did spike a fever last evening of 102.2 F, the patient is afebrile this morning still complaining of feeling weak patient denies having any chest pain or shortness of breath or cough no abdominal pain no diarrhea Objective - Vital Signs Vital signs: Vital Signs Temp 97.6 F 12/08/21 11:48 Pulse 91 12/08/21 11:48 Resp 18 12/08/21 11:48 BP 109/69 12/08/21 11:48 Pulse Ox 100 12/08/21 11:48 FiO2 Intake & Output 12/07/21 12/08/21 12/08/21 18:59 06:59 18:59 Intake Total 850 500 Balance 850 500 Intake: IV 100 Cefepime 2 gm In Sodium 100 Chloride 0.9% 100 ml @ 25 mls/hr IVPB Q8H [facility] Rx#: [id number] Oral 750 500 Other: Voiding Method Toilet Toilet Toilet # Voids 3 4 - Exam GENERAL DESCRIPTION: Middle-aged female lying in bed, no distress. No tachypnea or accessory muscle of respiration use. LUNGS: Unlabored breathing. Clear to auscultation anteriorly. No wheeze or crackle. HEART: S1, S2, regular rate and rhythm. No loud murmur ABDOMEN: Soft, no tenderness , guarding or rigidity, no organomegaly EXTREMITIES: No edema of feet. - Labs CBC & Chem 7: 12/07/21 12:15 12/07/21 12:15 Labs: Abnormal Lab Results - Last 24 Hours (Table) 12/06/21 12/07/21 12/07/21 Range/Units 12:43 17:07 20:12 POC Glucose (mg/dL) 147 H 169 H (70-110) mg/dL Free Chestnut LC, Quant 4.90 H (0.33-1.94) mg/dL Free Lambda LC, Quant 3.69 H (0.57-2.63) mg/dL 12/08/21 12/08/21 Range/Units 07:10 11:12 POC Glucose (mg/dL) 116 H 145 H (70-110) mg/dL Free Chestnut LC, Quant (0.33-1.94) mg/dL Free Lambda LC, Quant (0.57-2.63) mg/dL Microbiology - Last 24 Hours (Table) 12/06/21 12:43 Blood Culture - Preliminary Blood No Growth after 48 hours Assessment and Plan (1) Neutropenic fever Current Visit: Yes Status: Acute Code(s): D70.9 - NEUTROPENIA, UNSPECIFIED; R50.81 - FEVER PRESENTING WITH CONDITIONS CLASSIFIED ELSEWHERE SNOMED Code(s): 542321573 Plan: 1patient presented to hospital generalized weakness low-grade fever in this patient noted to be pancytopenic with a question of possible hematological malignancy infectious etiology less likely but not entirely excluded 2the patient did have elevated CRP however the procalcitonin is normal. 3CT abdominal pelvis did not show any acute abnormality. 4some of the viral serology is currently pending. 5patient may benefit from bone marrow biopsy to rule out hematological malignancy. 6continue with cefepime while waiting for the culture to finalize
[2021-12-09] MEDS: ASPIRIN 81 MG PO SCH (08:34)
[2021-12-09] MEDS: ACETAMINOPHEN TAB 325 MG TAB PO PRN (08:38)
[2021-12-09 11:37] LABS: Glucose,Whole Blood 139 mg/dL (70-110)
[2021-12-09 11:54] LABS: HCT 21.1 % (34.0-46.0); HGB 7.4 gm/dL (11.4-16.0); MCH 32.2 pg (25.0-35.0); MCHC 35.2 g/dL (31.0-37.0); MCV 91.6 fL (80.0-100.0); Poikilocytosis Moderate; RDW 15.6 % (11.5-15.5); WBC 0.7 k/uL (3.8-10.6)
[2021-12-09 11:55] LABS: Platelet Count 61 k/uL (150-450)
--- NOTE | 2021-12-09 12:57 | P.PN ---
Subjective Progress Note Date: 12/09/21 Principal diagnosis: Pancytopenia, B symptoms In follow-up today patient is reporting that she just "don't feel good". General malaise, fatigue, lack of energy, recent episodes of sweats, chills but, this is improved. Denies headaches, oral irritation, nausea, vomiting, cough or chest pain, abdominal pain, acute changes in bladder habits, no documented bowel movement since admit. Objective - Vital Signs Vital signs: Vital Signs Temp 98.9 F 12/09/21 04:36 Pulse 87 12/09/21 04:36 Resp 14 12/09/21 04:36 BP 105/66 12/09/21 04:36 Pulse Ox 96 12/09/21 04:36 FiO2 Intake & Output 12/08/21 12/09/21 12/09/21 18:59 06:59 18:59 Other: Voiding Method Toilet Toilet # Voids 2 1 - Constitutional General appearance: Present: average body habitus, cooperative, no acute distress - EENT Eyes: Present: anicteric sclerae, EOMI ENT: Present: hearing grossly normal - Respiratory Respiratory: bilateral: CTA - Cardiovascular Rhythm: regular Heart sounds: normal: S1, S2 Abnormal Heart Sounds: Absent: systolic murmur, diastolic murmur, rub, S3 Gallop, S4 Gallop, click, other - Peripheral edema leg Peripheral Edema: bilateral: None - Gastrointestinal General gastrointestinal: Present: normal bowel sounds, soft - Integumentary Integumentary: Present: normal - Neurologic Neurologic: Present: CNII-XII intact - Musculoskeletal Musculoskeletal: Present: strength equal bilaterally - Psychiatric Psychiatric: Present: A&O x's 3, appropriate affect, intact judgment & insight - Labs CBC & Chem 7: 12/09/21 11:06 12/07/21 12:15 Labs: Abnormal Lab Results - Last 24 Hours (Table) 12/06/21 12/08/21 12/08/21 Range/Units 12:43 07:46 07:46 POC Glucose (mg/dL) (70-110) mg/dL Ferritin 7445.0 H (10.0-291.0) ng/mL C-Reactive Protein 1.70 H (0.00-0.80) mg/dL Free [place] LC, Quant 4.90 H (0.33-1.94) mg/dL Free Lambda LC, Quant 3.69 H (0.57-2.63) mg/dL 12/08/21 12/08/21 12/08/21 Range/Units 11:12 17:07 20:21 POC Glucose (mg/dL) 145 H 151 H 141 H (70-110) mg/dL Ferritin (10.0-291.0) ng/mL C-Reactive Protein (0.00-0.80) mg/dL Free [place] LC, Quant (0.33-1.94) mg/dL Free Lambda LC, Quant (0.57-2.63) mg/dL 12/09/21 Range/Units 07:16 POC Glucose (mg/dL) 130 H (70-110) mg/dL Ferritin (10.0-291.0) ng/mL C-Reactive Protein (0.00-0.80) mg/dL Free [place] LC, Quant (0.33-1.94) mg/dL Free Lambda LC, Quant (0.57-2.63) mg/dL Microbiology - Last 24 Hours (Table) 12/06/21 12:43 Blood Culture - Preliminary Blood No Growth after 48 hours - Imaging and Cardiology CT scan - abdomen: report reviewed CT scan - pelvis: report reviewed Assessment and Plan (1) Pancytopenia Current Visit: Yes Status: Acute Priority: High Code(s): D61.818 - OTHER PANCYTOPENIA SNOMED Code(s): 542208707 Plan: Dr. Parisi reviewed with pt possible etiologies for her low counts. Since her counts are not recovering, despite treatment for suspected underlying infection, recommendation is for bone marrow evaluation. Description of procedure, risks of the procedure including infection, rarely large blood vessel or nerve damage, post op self care and follow up discussed. Pt is willing to have procedure. Orders placed for the same. Scheduling endoscopy suite. attests: I have seen and examined patient, performed H & P, developed impression and plan of care. Discussed with dictator. Agree with documentation, dictated as a scribe Time with Patient: Greater than 30
--- NOTE | 2021-12-09 13:15 | P.PN ---
Subjective Progress Note Date: 12/09/21 Principal diagnosis: Neutropenic fever Patient was having some epigastric discomfort this morning in addition to nausea. No vomiting. She was also having some loose stools and chills. Currently feeling a little better. No pain. No fevers. Objective - Vital Signs Vital signs: Vital Signs Temp 97.9 F 12/09/21 11:33 Pulse 81 12/09/21 11:33 Resp 15 12/09/21 11:33 BP 106/69 12/09/21 11:33 Pulse Ox 98 12/09/21 11:33 FiO2 Intake & Output 12/08/21 12/09/21 12/09/21 18:59 06:59 18:59 Other: Voiding Method Toilet Toilet # Voids 2 1 - Exam Constitutional: No acute distress, conversant, pleasant Eyes:Anicteric sclerae, moist conjunctiva, no lid-lag, PERRLA, ENMT: Oropharynx clear, no erythema, exudates Neck: Supple, FROM, no masses, or JVD, No carotid bruits, No thyromegaly Lungs: Clear to auscultation, Clear to percussion, Normal respiratory effort, no accessory muscle use Cardiovascular: Heart regular in rate and rhythm, No murmurs, gallops, or rubs, No peripheral edema Abdominal: Soft, Nontender, no guarding, rebound or rigidity, Normoactive bowel sounds, No hepatomegaly, No splenomegaly, No palpable mass Skin: Normal temperature, tone, texture, turgor, no induration, No subcutaneous nodules, No rash, lesions, No ulcers Extremities: No digital cyanosis, No clubbing, Pedal pulses intact and symmetrical, Radial pulses intact and symmetrical, No calf tenderness Psychiatric: Alert and oriented to person, place and time, appropriate affect, intact judgement Neuro: Muscles Strength 5/5 in all 4 extremities, Sensation to light touch grossly present throughout, Cranial nerves II-XII grossly intact, no focal sensory deficits - Labs CBC & Chem 7: 12/09/21 11:06 12/07/21 12:15 Labs: Abnormal Lab Results - Last 24 Hours (Table) 12/08/21 12/08/21 12/08/21 Range/Units 07:46 07:46 17:07 WBC (3.8-10.6) k/uL RBC (3.80-5.40) m/uL Hgb (11.4-16.0) gm/dL Hct (34.0-46.0) % RDW (11.5-15.5) % Plt Count (150-450) k/uL POC Glucose (mg/dL) 151 H (70-110) mg/dL Ferritin 7445.0 H (10.0-291.0) ng/mL C-Reactive Protein 1.70 H (0.00-0.80) mg/dL 12/08/21 12/09/21 12/09/21 Range/Units 20:21 07:16 11:06 WBC 0.7 L* (3.8-10.6) k/uL RBC 2.30 L (3.80-5.40) m/uL Hgb 7.4 L (11.4-16.0) gm/dL Hct 21.1 L (34.0-46.0) % RDW 15.6 H (11.5-15.5) % Plt Count 61 L (150-450) k/uL POC Glucose (mg/dL) 141 H 130 H (70-110) mg/dL Ferritin (10.0-291.0) ng/mL C-Reactive Protein (0.00-0.80) mg/dL 12/09/21 Range/Units 11:35 WBC (3.8-10.6) k/uL RBC (3.80-5.40) m/uL Hgb (11.4-16.0) gm/dL Hct (34.0-46.0) % RDW (11.5-15.5) % Plt Count (150-450) k/uL POC Glucose (mg/dL) 139 H (70-110) mg/dL Ferritin (10.0-291.0) ng/mL C-Reactive Protein (0.00-0.80) mg/dL Microbiology - Last 24 Hours (Table) 12/06/21 12:43 Blood Culture - Preliminary Blood No Growth after 48 hours Assessment and Plan Plan: Pancytopenia -Possibly in the setting of recent viral illness, drug reaction vs malignancy -Still with pancytopenia, according to hematology will need bone marrow biopsy -SPEP showed no monoclonal protein spike. Neutropenic fever -on IV cefepime -ID following -CT abd/pel negative for any infection. Hypovolemic hyponatremia Poor appetite -IV fluids Hypomagnesemia -Resolved Hypertension -Continue verapamil, hold losartan DVT prophylaxis - SCD
[2021-12-09 17:15] LABS: Glucose,Whole Blood 141 mg/dL (70-110)
[2021-12-09 20:18] LABS: Glucose,Whole Blood 158 mg/dL (70-110)
[2021-12-09] MEDS: VERAPAMIL SR 120 MG TABLET.ER PO SCH (22:21)
[2021-12-10] MEDS: CEFEPIME 2 GM in SODIUM CHLORIDE 0.9% 100 ML IVPB SCH ×3 (03:56→20:55)
[2021-12-10 07:12] LABS: Glucose,Whole Blood 135 mg/dL (70-110)
[2021-12-10] MEDS ORDERED: ONDANSETRON 4 MG/2 ML VIAL ONE (08:28)
[2021-12-10] MEDS ORDERED: LIDOCAINE 2% INJ 20 MG/ML (2 ML VIAL) ONE (08:28)
[2021-12-10] MEDS ORDERED: PROPOFOL 10 MG/ML 20 ML VIAL IV ONE (08:28)
--- NOTE | 2021-12-10 08:29 | P.PN ---
Subjective Progress Note Date: 12/09/21 Principal diagnosis: Fever Patient is a 65-year old female past medical history of hypertension hyperlipidemia presented to hospital with fatigue low-grade fever in this patient was noticed to be pancytopenic infectious disease was consulted because of her fever. On today's evaluation that is 12/09/2021 patient is afebrile this morning , the patient is complaining of feeling weak and not feeling that good, patient denies having any chest pain or shortness of breath or cough no abdominal pain no diarrhea Objective - Vital Signs Vital signs: Vital Signs Temp 97.9 F 12/09/21 11:33 Pulse 81 12/09/21 11:33 Resp 15 12/09/21 11:33 BP 106/69 12/09/21 11:33 Pulse Ox 98 12/09/21 11:33 FiO2 Intake & Output 12/08/21 12/09/21 12/09/21 18:59 06:59 18:59 Other: Voiding Method Toilet Toilet # Voids 2 1 - Exam GENERAL DESCRIPTION: Middle-aged female lying in bed, no distress. No tachypnea or accessory muscle of respiration use. LUNGS: Unlabored breathing. Clear to auscultation anteriorly. No wheeze or crackle. HEART: S1, S2, regular rate and rhythm. No loud murmur ABDOMEN: Soft, no tenderness , guarding or rigidity, no organomegaly EXTREMITIES: No edema of feet. - Labs CBC & Chem 7: 12/09/21 11:06 12/07/21 12:15 Labs: Abnormal Lab Results - Last 24 Hours (Table) 12/08/21 12/08/21 12/08/21 Range/Units 07:46 07:46 17:07 WBC (3.8-10.6) k/uL RBC (3.80-5.40) m/uL Hgb (11.4-16.0) gm/dL Hct (34.0-46.0) % RDW (11.5-15.5) % Plt Count (150-450) k/uL POC Glucose (mg/dL) 151 H (70-110) mg/dL Ferritin 7445.0 H (10.0-291.0) ng/mL C-Reactive Protein 1.70 H (0.00-0.80) mg/dL 11/02/2812/09/21 12/09/21 Range/Units 20:21 07:16 11:06 WBC 0.7 L* (3.8-10.6) k/uL RBC 2.30 L (3.80-5.40) m/uL Hgb 7.4 L (11.4-16.0) gm/dL Hct 21.1 L (34.0-46.0) % RDW 15.6 H (11.5-15.5) % Plt Count 61 L (150-450) k/uL POC Glucose (mg/dL) 141 H 130 H (70-110) mg/dL Ferritin (10.0-291.0) ng/mL C-Reactive Protein (0.00-0.80) mg/dL 12/09/21 Range/Units 11:35 WBC (3.8-10.6) k/uL RBC (3.80-5.40) m/uL Hgb (11.4-16.0) gm/dL Hct (34.0-46.0) % RDW (11.5-15.5) % Plt Count (150-450) k/uL POC Glucose (mg/dL) 139 H (70-110) mg/dL Ferritin (10.0-291.0) ng/mL C-Reactive Protein (0.00-0.80) mg/dL Microbiology - Last 24 Hours (Table) 12/06/21 12:43 Blood Culture - Preliminary Blood No Growth after 48 hours Assessment and Plan (1) Neutropenic fever Current Visit: Yes Status: Acute Code(s): D70.9 - NEUTROPENIA, UNSPECIFIED; R50.81 - FEVER PRESENTING WITH CONDITIONS CLASSIFIED ELSEWHERE SNOMED Code(s): 269162857 Plan: 1patient presented to hospital generalized weakness low-grade fever in this patient noted to be pancytopenic with a question of possible hematological m alignancy infectious etiology less likely but not entirely excluded 2the patient did have elevated CRP however the procalcitonin is normal. 3CT abdominal pelvis did not show any acute abnormality. 4 patient will benefit from bone marrow biopsy to rule out hematological malignancy. 5patient to continue with cefepime while waiting for the culture to finalize Time with Patient: Less than 30
[2021-12-10] MEDS ORDERED: IV FLUID CONTINUATION 1,000 ML IV ONE ×2 (08:30)
[2021-12-10] MEDS: ASPIRIN 81 MG PO SCH (08:43)
--- NOTE | 2021-12-10 09:02 | P.PCN ---
Date of Procedure: 12/10/21 Preoperative Diagnosis: Pancytopenia, negative clinical workup Postoperative Diagnosis: Same Procedure(s) Performed: Bone marrow aspiration biopsy Anesthesia: MAC Surgeon: Avi Parisi County Engineer #1: Stated None Estimated Blood Loss (ml): 2 Pathology: other Condition: stable Disposition: floor Indications for Procedure: New onset pancytopenia, with associated B symptoms. Negative clinical workup. Operative Findings: Adequate samples Description of Procedure: The procedure was discussed in detail with the patient on the floor. Informed consent was obtained on the phone. She'll brought to the outpatient endoscopy suite, and placed in the left lateral decubitus position. The area over both posterior iliac crest was cleaned and prepped with chlorhexidine and sterile draping. IV sedation was then initiated. Local anesthetic was administered with lidocaine to the right posterior iliac crest. A Jamshidi needle was then inserted and bone marrow aspirate and biopsy obtained. On withdrawal of the needle hemostasis was easily achieved. Blood loss was minimal, and recovery from sedation was satisfactory. The patient appeared to have tolerated the procedure well without any obvious, immediate complications.
[2021-12-10 09:54] LABS: HGB 6.7 g/dL (12.0-15.0); MCH 31.9 pg (27.0-32.0); MCHC 33.5 g/dL (32.0-37.0); MCV 95.2 fL (80.0-97.0); Mean Platelet Volume 9.5 fL (9.5-12.2); NRBC Per 100 WBC 0 /100 WBCS (0.0-0.0); Platelet Count 50 X 10*3/uL (140-440); RDW 15.4 % (11.5-14.5); WBC 0.74 X 10*3/uL (4.50-10.00)
[2021-12-10 10:04] LABS: Basophils # (M) 0 X 10*3/uL (0.00-0.10); Eosinophils # (M) 0 X 10*3/uL (0.04-0.35); Immature Platelet Fraction 2.3 % (1.1-6.1); Lymphocytes # (M) 0.64 X 10*3/uL (0.90-5.00); Monocytes # (M) 0 X 10*3/uL (0.20-1.00); Neutrophils % (M) 14 %; Rouleaux PRESENT
[2021-12-10 10:24] LABS: Reticulocyte % 1.2 % (0.5-2.0)
[2021-12-10 10:53] LABS: African American GFR (CKD) 119.8 (60.0-200.0); Albumin 3.4 g/dL (3.8-4.9); Albumin/Globulin Ratio 1.18 (1.60-3.17); Anion Gap 10.7 mmol/L (10.00-18.00); BUN/Creat Ratio 24.38 Ratio (12.00-20.00); Blood Urea Nitrogen 11.8 mg/dL (9.0-27.0); Calcium 8.2 mg/dL (8.7-10.3); Carbon Dioxide 22.1 mmol/L (20.0-27.5); Globulin 2.9 g/dL (1.6-3.3); Magnesium 1.9 mg/dL (1.5-2.4); Non-African American GFR(CKD) 103.4 (60.0-200.0); Potassium 4.7 mmol/L (3.5-5.5); Total Bilirubin 0.3 mg/dL (0.30-1.20); Total Protein 6.2 g/dL (6.2-8.2)
[2021-12-10 12:02] LABS: Glucose,Whole Blood 158 mg/dL (70-110)
--- NOTE | 2021-12-10 12:35 | P.PN ---
Subjective Progress Note Date: 12/10/21 Principal diagnosis: Neutropenic fever Patient doing well today, has no complaints. No fevers or chills. No pain or sob. Objective - Vital Signs Vital signs: Vital Signs Temp 98.9 F 12/10/21 04:02 Pulse 82 12/10/21 04:02 Resp 16 12/10/21 04:02 BP 102/64 12/10/21 04:02 Pulse Ox 96 12/10/21 04:02 FiO2 Intake & Output 12/09/21 12/10/21 12/10/21 18:59 06:59 18:59 Intake Total 740 100 Balance 740 100 Intake: IV 200 100 Cefepime 2 gm In Sodium 200 Chloride 0.9% 100 ml @ 25 mls/hr IVPB Q8H [facility] Rx#: [id number] Oral 540 Other: Voiding Method Toilet Toilet # Voids 2 - Exam Constitutional: No acute distress, conversant, pleasant Eyes:Anicteric sclerae, moist conjunctiva, no lid-lag, PERRLA, ENMT: Oropharynx clear, no erythema, exudates Neck: Supple, FROM, no masses, or JVD, No carotid bruits, No thyromegaly Lungs: Clear to auscultation, Clear to percussion, Normal respiratory effort, no accessory muscle use Cardiovascular: Heart regular in rate and rhythm, No murmurs, gallops, or rubs, No peripheral edema Abdominal: Soft, Nontender, no guarding, rebound or rigidity, Normoactive bowel sounds, No hepatomegaly, No splenomegaly, No palpable mass Skin: Normal temperature, tone, texture, turgor, no induration, No subcutaneous nodules, No rash, lesions, No ulcers Extremities: No digital cyanosis, No clubbing, Pedal pulses intact and symmetrical, Radial pulses intact and symmetrical, No calf tenderness Psychiatric: Alert and oriented to person, place and time, appropriate affect, intact judgement Neuro: Muscles Strength 5/5 in all 4 extremities, Sensation to light touch grossly present throughout, Cranial nerves II-XII grossly intact, no focal sensory deficits - Labs CBC & Chem 7: 12/10/21 05:58 12/10/21 05:58 Labs: Abnormal Lab Results - Last 24 Hours (Table) 12/09/21 12/09/21 12/09/21 Range/Units 11:06 17:09 20:15 WBC 0.7 L* (3.8-10.6) k/uL RBC 2.30 L (3.80-5.40) m/uL Hgb 7.4 L (11.4-16.0) gm/dL Hct 21.1 L (34.0-46.0) % RDW 15.6 H (11.5-15.5) % Plt Count 61 L (150-450) k/uL Plt Count Comment Neutrophils # (Manual) (2.00-8.90) X 10*3/uL Lymphocytes # (Manual) (0.90-5.00) X 10*3/uL Monocytes # (Manual) (0.20-1.00) X 10*3/uL Eosinophils # (Manual) (0.04-0.35) X 10*3/uL Creatinine (0.6-1.5) mg/dL BUN/Creatinine Ratio (12.00-20.00) Ratio Glucose (70-110) mg/dL POC Glucose (mg/dL) 141 H 158 H (70-110) mg/dL Calcium (8.7-10.3) mg/dL AST (13-35) U/L ALT (8-44) U/L Albumin (3.8-4.9) g/dL Albumin/Globulin Ratio (1.60-3.17) g/dL Crossmatch 12/10/21 12/10/21 12/10/21 Range/Units 05:58 05:58 07:11 WBC 0.74 L* (3.8-10.6) k/uL RBC 2.10 L (3.80-5.40) m/uL Hgb 6.7 L* (11.4-16.0) gm/dL Hct 20.0 L (34.0-46.0) % RDW 15.4 H (11.5-15.5) % Plt Count 50 L (150-450) k/uL Plt Count Comment DECREASED A Neutrophils # (Manual) 0.10 L* (2.00-8.90) X 10*3/uL Lymphocytes # (Manual) 0.64 L (0.90-5.00) X 10*3/uL Monocytes # (Manual) 0 L (0.20-1.00) X 10*3/uL Eosinophils # (Manual) 0 L (0.04-0.35) X 10*3/uL Creatinine 0.5 L (0.6-1.5) mg/dL BUN/Creatinine Ratio 24.38 H (12.00-20.00) Ratio Glucose 115 H (70-110) mg/dL POC Glucose (mg/dL) 135 H (70-110) mg/dL Calcium 8.2 L (8.7-10.3) mg/dL AST 56 H (13-35) U/L ALT 46 H (8-44) U/L Albumin 3.4 L (3.8-4.9) g/dL Albumin/Globulin Ratio 1.18 L (1.60-3.17) g/dL Crossmatch 12/10/21 12/10/21 Range/Units 10:26 12:01 WBC (3.8-10.6) k/uL RBC (3.80-5.40) m/uL Hgb (11.4-16.0) gm/dL Hct (34.0-46.0) % RDW (11.5-15.5) % Plt Count (150-450) k/uL Plt Count Comment Neutrophils # (Manual) (2.00-8.90) X 10*3/uL Lymphocytes # (Manual) (0.90-5.00) X 10*3/uL Monocytes # (Manual) (0.20-1.00) X 10*3/uL Eosinophils # (Manual) (0.04-0.35) X 10*3/uL Creatinine (0.6-1.5) mg/dL BUN/Creatinine Ratio (12.00-20.00) Ratio Glucose (70-110) mg/dL POC Glucose (mg/dL) 158 H (70-110) mg/dL Calcium (8.7-10.3) mg/dL AST (13-35) U/L ALT (8-44) U/L Albumin (3.8-4.9) g/dL Albumin/Globulin Ratio (1.60-3.17) g/dL Crossmatch See Detail Microbiology - Last 24 Hours (Table) 12/06/21 12:43 Blood Culture - Preliminary Blood No Growth after 72 hours Assessment and Plan Plan: Pancytopenia Anemia -Possibly in the setting of recent viral illness, drug reaction vs malignancy -Still with pancytopenia, bone marrow biopsy done today. -SPEP showed no monoclonal protein spike. -Getting one unit of PRBC today for hgb 6.7. -Follow CBC in am Neutropenic fever -on IV cefepime -ID following -CT abd/pel negative for any infection. Hypovolemic hyponatremia Poor appetite -IV fluids Hypomagnesemia -Resolved Hypertension -Continue verapamil, hold losartan DVT prophylaxis - SCD
--- NOTE | 2021-12-10 12:58 | P.PN ---
Subjective Progress Note Date: 12/10/21 Principal diagnosis: Pancytopenia, B symptoms In follow-up today patient Continues to just feel unwell. There has been no relief in any of her symptoms since admission. None of her symptoms are severe, just absolutely irritating and frustrating that there is no relief to be had. Objective - Vital Signs Vital signs: Vital Signs Temp 99.0 F 12/10/21 12:00 Pulse 92 12/10/21 12:00 Resp 18 12/10/21 12:00 BP 107/72 12/10/21 12:00 Pulse Ox 99 12/10/21 12:00 FiO2 Intake & Output 12/09/21 12/10/21 12/10/21 18:59 06:59 18:59 Intake Total 740 100 Balance 740 100 Intake: IV 200 100 Cefepime 2 gm In Sodium 200 Chloride 0.9% 100 ml @ 25 mls/hr IVPB Q8H [facility] Rx#: [id number] Oral 540 Other: Voiding Method Toilet Toilet # Voids 2 - Constitutional General appearance: Present: average body habitus, cooperative, no acute distress - EENT Eyes: Present: anicteric sclerae, EOMI ENT: Present: hearing grossly normal - Respiratory Respiratory: bilateral: CTA - Cardiovascular Rhythm: regular Heart sounds: normal: S1, S2 Abnormal Heart Sounds: Absent: systolic murmur, diastolic murmur, rub, S3 Gallop, S4 Gallop, click, other - Peripheral edema leg Peripheral Edema: bilateral: None - Gastrointestinal General gastrointestinal: Present: normal bowel sounds, soft - Neurologic Neurologic: Present: CNII-XII intact - Musculoskeletal Musculoskeletal: Present: generalized weakness, strength equal bilaterally - Psychiatric Psychiatric: Present: A&O x's 3, appropriate affect, intact judgment & insight - Labs CBC & Chem 7: 12/10/21 05:58 12/10/21 05:58 Labs: Abnormal Lab Results - Last 24 Hours (Table) 12/09/21 12/09/21 12/09/21 Range/Units 11:06 17:09 20:15 WBC 0.7 L* (3.8-10.6) k/uL RBC 2.30 L (3.80-5.40) m/uL Hgb 7.4 L (11.4-16.0) gm/dL Hct 21.1 L (34.0-46.0) % RDW 15.6 H (11.5-15.5) % Plt Count 61 L (150-450) k/uL Plt Count Comment Neutrophils # (Manual) (2.00-8.90) X 10*3/uL Lymphocytes # (Manual) (0.90-5.00) X 10*3/uL Monocytes # (Manual) (0.20-1.00) X 10*3/uL Eosinophils # (Manual) (0.04-0.35) X 10*3/uL Creatinine (0.6-1.5) mg/dL BUN/Creatinine Ratio (12.00-20.00) Ratio Glucose (70-110) mg/dL POC Glucose (mg/dL) 141 H 158 H (70-110) mg/dL Calcium (8.7-10.3) mg/dL AST (13-35) U/L ALT (8-44) U/L Albumin (3.8-4.9) g/dL Albumin/Globulin Ratio (1.60-3.17) g/dL Crossmatch 12/10/21 12/10/21 12/10/21 Range/Units 05:58 05:58 07:11 WBC 0.74 L* (3.8-10.6) k/uL RBC 2.10 L (3.80-5.40) m/uL Hgb 6.7 L* (11.4-16.0) gm/dL Hct 20.0 L (34.0-46.0) % RDW 15.4 H (11.5-15.5) % Plt Count 50 L (150-450) k/uL Plt Count Comment DECREASED A Neutrophils # (Manual) 0.10 L* (2.00-8.90) X 10*3/uL Lymphocytes # (Manual) 0.64 L (0.90-5.00) X 10*3/uL Monocytes # (Manual) 0 L (0.20-1.00) X 10*3/uL Eosinophils # (Manual) 0 L (0.04-0.35) X 10*3/uL Creatinine 0.5 L (0.6-1.5) mg/dL BUN/Creatinine Ratio 24.38 H (12.00-20.00) Ratio Glucose 115 H (70-110) mg/dL POC Glucose (mg/dL) 135 H (70-110) mg/dL Calcium 8.2 L (8.7-10.3) mg/dL AST 56 H (13-35) U/L ALT 46 H (8-44) U/L Albumin 3.4 L (3.8-4.9) g/dL Albumin/Globulin Ratio 1.18 L (1.60-3.17) g/dL Crossmatch 12/10/21 12/10/21 Range/Units 10:26 12:01 WBC (3.8-10.6) k/uL RBC (3.80-5.40) m/uL Hgb (11.4-16.0) gm/dL Hct (34.0-46.0) % RDW (11.5-15.5) % Plt Count (150-450) k/uL Plt Count Comment Neutrophils # (Manual) (2.00-8.90) X 10*3/uL Lymphocytes # (Manual) (0.90-5.00) X 10*3/uL Monocytes # (Manual) (0.20-1.00) X 10*3/uL Eosinophils # (Manual) (0.04-0.35) X 10*3/uL Creatinine (0.6-1.5) mg/dL BUN/Creatinine Ratio (12.00-20.00) Ratio Glucose (70-110) mg/dL POC Glucose (mg/dL) 158 H (70-110) mg/dL Calcium (8.7-10.3) mg/dL AST (13-35) U/L ALT (8-44) U/L Albumin (3.8-4.9) g/dL Albumin/Globulin Ratio (1.60-3.17) g/dL Crossmatch See Detail Microbiology - Last 24 Hours (Table) 12/06/21 12:43 Blood Culture - Preliminary Blood No Growth after 72 hours Assessment and Plan (1) Pancytopenia Current Visit: Yes Status: Acute Priority: High Code(s): D61.818 - OTHER PANCYTOPENIA SNOMED Code(s): 078265077 Plan: Patient had no other questions about bone marrow biopsy and aspirate procedure. She signed consent. She has no acute complaints today that would prevent her fr om having procedure. Follow-up care post procedure. It will likely take 7-10 days for bone marrow results to report. Continue supportive care at this time. No G-CSF until we have a diagnosis. Previously, Dr. Parisi reviewed with pt possible etiologies for her low counts. Follow-up in a.m. attests: I have seen and examined patient, performed H & P, developed impression and plan of care. Discussed with dictator. Agree with documentation, dictated as a scribe
[2021-12-10 14:10] LABS: EBV-EA (IgG) <0.2 AI; EBV-EBNA(IgG) >8.0 AI; EBV-VCA (IgG) >8.0 AI; EBV-VCA (IgM) <0.2 AI
[2021-12-10 15:34] LABS: HIV 2 AB Non-Reactive (Non-Reactive); HIV AB P24 Non-Reactive (Non-Reactive); HIV P24 AG Non-Reactive (Non-Reactive)
[2021-12-10 16:55] LABS: Glucose,Whole Blood 118 mg/dL (70-110)
[2021-12-10 20:51] LABS: Glucose,Whole Blood 136 mg/dL (70-110)
[2021-12-10] MEDS: VERAPAMIL SR 120 MG TABLET.ER PO SCH (20:55)
[2021-12-11] MEDS: CEFEPIME 2 GM in SODIUM CHLORIDE 0.9% 100 ML IVPB SCH ×3 (03:54→20:51)
[2021-12-11 07:25] LABS: Glucose,Whole Blood 114 mg/dL (70-110)
[2021-12-11] MEDS: ASPIRIN 81 MG PO SCH (09:52)
[2021-12-11 10:26] LABS: Basophils # (M) 0 X 10*3/uL (0.00-0.10); Eosinophils # (M) 0 X 10*3/uL (0.04-0.35); HGB 7.4 g/dL (12.0-15.0); Immature Platelet Fraction 2.6 % (1.1-6.1); Lymphocytes # (M) 0.73 X 10*3/uL (0.90-5.00); MCH 30.8 pg (27.0-32.0); MCHC 33.6 g/dL (32.0-37.0); MCV 91.7 fL (80.0-97.0); Mean Platelet Volume 9.6 fL (9.5-12.2); Monocytes # (M) 0.03 X 10*3/uL (0.20-1.00); NRBC Per 100 WBC 0 /100 WBCS (0.0-0.0); Neutrophils # (M) 0.13 X 10*3/uL (2.00-8.90); Neutrophils % (M) 15 %; Platelet Count 58 X 10*3/uL (140-440); RDW 16.4 % (11.5-14.5); WBC 0.89 X 10*3/uL (4.50-10.00)
--- NOTE | 2021-12-11 11:07 | P.DS ---
Providers Date of admission: 12/06/21 11:13 Expected date of discharge: 12/11/21 Attending physician: Monica Szymanski MD Consults: 12/06/21 11:02 Consult Physician Routine Consulting Provider: Avi Parisi Consult Reason/Comments: leukopenia, B symptoms Do you want consulting provider notified?: Yes 12/07/21 11:25 Consult Physician Routine Consulting Provider: Jace Reyez Consult Reason/Comments: neutropenic fever Do you want consulting provider notified?: Yes Primary care physician: Kenneth [facility] Course: 65-year-old female with past medical history of hypertension, dyslipidemia presenting with 2 weeks of fatigue, low-grade fevers, chills, occasional abdominal pain. About 2 weeks ago she had mild flulike symptoms, and since then she has not been able to function at her optimal level. She also had medication changes about one month ago when she was previously on lisinopril, developed cough, and then changed to losartan. She denies any new lumps noted on her body. She denies any sick contacts. She denies any family history of leukemia or lymphoma. No chest pain, palpitations, nausea, vomiting, urinary or bowel complaints. No recent travel history. In the ED, her vital signs were within normal limits. Her lab work was consistent with pancytopenia, hyponatremia, hypomagnesemia. Her flu, RSV, COVID-19 panel was negative. Chest x-ray was unremarkable. EKG showed normal sinus rhythm. She was admitted for further workup. Upon admission patient was found to have pancytopenia, hyponatremia and hypomagnesemia. She was started on IV fluids, magnesium was replaced. She was also febrile, was started on broad spectrum abx, cefepime. She did have elevated CRP however the procalcitonin is normal. Was seen by ID, who ordered CT abdom inal pelvis did not show any acute abnormality. She was also seen by oncology who did bone marrow biopsy to rule out hematological malignancy, result currently pending. She required one unit of PRBCs on 12/10 and hgb came up the next day. Case was discussed with ID, no need for abx upon discharge as she was without fever for 4 days already now, cultures were negative as well. She was cleared to be discharged by oncology as well. Will need to follow up in the office for BM biopsy results. Patient seen and examined on the day of discharge 12/11 Time for discharge 35 min Patient Condition at Discharge: Fair Plan - Discharge Summary Discharge Rx Participant: Yes New Discharge Prescriptions: Continue Aspirin EC [Ecotrin Low Dose] 81 mg PO DAILY Verapamil HCl [Verelan Pm] 100 mg PO HS [place]-3 Fatty Acids/Fish Oil [Fish Oil 1,000 mg Softgel] 1 cap PO DAILY Cetirizine HCl 10 mg PO DAILY PRN PRN Reason: Allergy Symptoms metFORMIN HCL [Glucophage] 1,000 mg PO DAILY Fluticasone Propionate 2 spray EA NOSTRIL DAILY PRN PRN Reason: Allergy Symptoms Discontinued Losartan Potassium [Cozaar] 25 mg PO DAILY Discharge Medication List Aspirin EC [Ecotrin Low Dose] 81 mg PO DAILY 01/30/18 [History] Cetirizine HCl 10 mg PO DAILY PRN 01/30/18 [History] [place]-3 Fatty Acids/Fish Oil [Fish Oil 1,000 mg Softgel] 1 cap PO DAILY 01/30/18 [History] Verapamil HCl [Verelan Pm] 100 mg PO HS 01/30/18 [History] metFORMIN HCL [Glucophage] 1,000 mg PO DAILY 01/30/18 [History] Fluticasone Propionate 2 spray EA NOSTRIL DAILY PRN 12/06/21 [History] Follow up Appointment(s)/Referral(s): Kenneth Govea MD [Primary Care Provider] - 1-2 days Patient Instructions/Handouts: Type 2 Diabetes in Adults: New Diagnosis (DC)
[2021-12-11 11:09] LABS: Glucose,Whole Blood 139 mg/dL (70-110)
--- NOTE | 2021-12-11 11:50 | P.PN ---
Subjective Progress Note Date: 12/11/21 Principal diagnosis: Pancytopenia, B symptoms In follow-up today patient states feeling ok, she is tolerating oral intake, no nausea or vomiting, denies cough or chest pain. She is able to ambulate without assistance, without distress. She denies any constipation or diarrhea. Patient is reporting only mild discomfort from the bone marrow biopsy. Objective - Vital Signs Vital signs: Vital Signs Temp 98.8 F 12/11/21 05:11 Pulse 78 12/11/21 05:11 Resp 14 12/11/21 05:11 BP 99/62 12/11/21 05:11 Pulse Ox 97 12/11/21 05:11 FiO2 Intake & Output 12/10/21 12/11/21 12/11/21 18:59 06:59 18:59 Intake Total 410 Balance 410 Intake: IV 100 Blood Product 310 Rc Irr As1 Unit 310 [id number] Other: Voiding Method Toilet Toilet # Voids 3 - Constitutional General appearance: Present: cooperative, no acute distress, obese - EENT Eyes: Present: anicteric sclerae, EOMI ENT: Present: hearing grossly normal - Respiratory Details: Respirations even and unlabored - Peripheral edema leg Peripheral Edema: bilateral: None - Integumentary Integumentary Comment(s): Pressure dressing still in place from bone marrow biopsy, the dressing is not saturated with blood, there is no feasible bruising around the dressing, pressing On the site does not elicit any pain - Neurologic Neurologic: Present: CNII-XII intact - Musculoskeletal Musculoskeletal: Present: strength equal bilaterally - Psychiatric Psychiatric: Present: A&O x's 3, appropriate affect, intact judgment & insight - Labs CBC & Chem 7: 12/11/21 05:53 12/10/21 05:58 Labs: Abnormal Lab Results - Last 24 Hours (Table) 12/06/21 12/09/21 12/10/21 Range/Units 15:18 11:06 05:58 WBC 0.7 L* 0.74 L* (3.8-10.6) k/uL RBC 2.30 L 2.10 L (3.80-5.40) m/uL Hgb 7.4 L 6.7 L* (11.4-16.0) gm/dL Hct 21.1 L 20.0 L (34.0-46.0) % RDW 15.6 H 15.4 H (11.5-15.5) % Plt Count 61 L 50 L (150-450) k/uL Plt Count Comment DECREASED A Neutrophils # (Manual) 0.10 L* (2.00-8.90) X 10*3/uL Lymphocytes # (Manual) 0.64 L (0.90-5.00) X 10*3/uL Monocytes # (Manual) 0 L (0.20-1.00) X 10*3/uL Eosinophils # (Manual) 0 L (0.04-0.35) X 10*3/uL Creatinine (0.6-1.5) mg/dL BUN/Creatinine Ratio (12.00-20.00) Ratio Glucose (70-110) mg/dL POC Glucose (mg/dL) (70-110) mg/dL Calcium (8.7-10.3) mg/dL AST (13-35) U/L ALT (8-44) U/L Albumin (3.8-4.9) g/dL Albumin/Globulin Ratio (1.60-3.17) g/dL EBV Capsid Ag IgG Intrp POSITIVE A (NEGATIVE) EBV Nuc Ag IgG Interp POSITIVE A (NEGATIVE) Crossmatch 12/10/21 12/10/21 12/10/21 Range/Units 05:58 10:26 12:01 WBC (3.8-10.6) k/uL RBC (3.80-5.40) m/uL Hgb (11.4-16.0) gm/dL Hct (34.0-46.0) % RDW (11.5-15.5) % Plt Count (150-450) k/uL Plt Count Comment Neutrophils # (Manual) (2.00-8.90) X 10*3/uL Lymphocytes # (Manual) (0.90-5.00) X 10*3/uL Monocytes # (Manual) (0.20-1.00) X 10*3/uL Eosinophils # (Manual) (0.04-0.35) X 10*3/uL Creatinine 0.5 L (0.6-1.5) mg/dL BUN/Creatinine Ratio 24.38 H (12.00-20.00) Ratio Glucose 115 H (70-110) mg/dL POC Glucose (mg/dL) 158 H (70-110) mg/dL Calcium 8.2 L (8.7-10.3) mg/dL AST 56 H (13-35) U/L ALT 46 H (8-44) U/L Albumin 3.4 L (3.8-4.9) g/dL Albumin/Globulin Ratio 1.18 L (1.60-3.17) g/dL EBV Capsid Ag IgG Intrp (NEGATIVE) EBV Nuc Ag IgG Interp (NEGATIVE) Crossmatch See Detail 12/10/21 12/10/21 12/11/21 Range/Units 16:52 20:49 07:23 WBC (3.8-10.6) k/uL RBC (3.80-5.40) m/uL Hgb (11.4-16.0) gm/dL Hct (34.0-46.0) % RDW (11.5-15.5) % Plt Count (150-450) k/uL Plt Count Comment Neutrophils # (Manual) (2.00-8.90) X 10*3/uL Lymphocytes # (Manual) (0.90-5.00) X 10*3/uL Monocytes # (Manual) (0.20-1.00) X 10*3/uL Eosinophils # (Manual) (0.04-0.35) X 10*3/uL Creatinine (0.6-1.5) mg/dL BUN/Creatinine Ratio (12.00-20.00) Ratio Glucose (70-110) mg/dL POC Glucose (mg/dL) 118 H 136 H 114 H (70-110) mg/dL Calcium (8.7-10.3) mg/dL AST (13-35) U/L ALT (8-44) U/L Albumin (3.8-4.9) g/dL Albumin/Globulin Ratio (1.60-3.17) g/dL EBV Capsid Ag IgG Intrp (NEGATIVE) EBV Nuc Ag IgG Interp (NEGATIVE) Crossmatch Microbiology - Last 24 Hours (Table) 12/06/21 12:43 Blood Culture - Preliminary Blood No Growth after 96 hours Assessment and Plan (1) Pancytopenia Current Visit: Yes Status: Acute Priority: High Code(s): D61.818 - OTHER PANCYTOPENIA SNOMED Code(s): 061946504 Plan: Status post bone marrow biopsy and aspirate. Pending results. Reviewed with patient that he can take at least 3-5 days for preliminary, 7-10 days for final results. She verbalized understanding. Patient is doing well overall. She can be discharged from a Hematology/Oncology standpoint once she is cleared by Infectious Disease and Internal Medicine. Case discussed with Internal Medicine. Await Infectious Disease recommendations as patient's leukopenia and neutropenia she will likely require some sort of prophylactic antibiotics, possibly even antivirals are antifungal's. We'll get an appointment in the chart for patient to have a CBC next week for close monitoring. Transfuse as needed. Follow up with M.D. in 7-10 days for results and plan of care.
[2021-12-11 12:24] VITALS: RESP 16
[2021-12-11 12:44] VITALS: BMI 23.3
[2021-12-11 17:09] LABS: Glucose,Whole Blood 135 mg/dL (70-110)
[2021-12-11] MEDS: VERAPAMIL SR 120 MG TABLET.ER PO SCH (20:51)
[2021-12-11 20:55] LABS: Glucose,Whole Blood 139 mg/dL (70-110)
[2021-12-11 22:06] VITALS: BP 118/70; PULSE 85; TEMP 98.3
[2021-12-12] MEDS: ASPIRIN 81 MG PO SCH (10:21)
[2021-12-12] MEDS: CEFEPIME 2 GM in SODIUM CHLORIDE 0.9% 100 ML IVPB SCH (10:21)
[2021-12-12 11:37] LABS: Glucose,Whole Blood 111 mg/dL (70-110)
--- NOTE | 2021-12-12 12:11 | P.PN ---
Subjective Progress Note Date: 12/11/21 Principal diagnosis: Neutropenic fever No complaints. No overnight issues. No sob or pain. Objective - Vital Signs Vital signs: Vital Signs Temp 98.3 F 12/11/21 21:00 Pulse 85 12/11/21 21:00 Resp 16 12/11/21 21:00 BP 118/70 12/11/21 21:00 Pulse Ox 97 12/11/21 21:00 FiO2 Intake & Output 12/11/21 12/12/21 12/12/21 18:59 06:59 18:59 Weight 63.503 kg Other: Voiding Method Toilet # Voids 2 - Exam Constitutional: No acute distress, conversant, pleasant Eyes:Anicteric sclerae, moist conjunctiva, no lid-lag, PERRLA, ENMT: Oropharynx clear, no erythema, exudates Neck: Supple, FROM, no masses, or JVD, No carotid bruits, No thyromegaly Lungs: Clear to auscultation, Clear to percussion, Normal respiratory effort, no accessory muscle use Cardiovascular: Heart regular in rate and rhythm, No murmurs, gallops, or rubs, No peripheral edema Abdominal: Soft, Nontender, no guarding, rebound or rigidity, Normoactive bowel sounds, No hepatomegaly, No splenomegaly, No palpable mass Skin: Normal temperature, tone, texture, turgor, no induration, No subcutaneous nodules, No rash, lesions, No ulcers Extremities: No digital cyanosis, No clubbing, Pedal pulses intact and symmetrical, Radial pulses intact and symmetrical, No calf tenderness Psychiatric: Alert and oriented to person, place and time, appropriate affect, i ntact judgement Neuro: Muscles Strength 5/5 in all 4 extremities, Sensation to light touch grossly present throughout, Cranial nerves II-XII grossly intact, no focal sensory deficits - Labs CBC & Chem 7: 12/11/21 05:53 12/10/21 05:58 Labs: Abnormal Lab Results - Last 24 Hours (Table) 12/06/21 12/11/21 12/11/21 Range/Units 15:26 17:07 20:54 POC Glucose (mg/dL) 135 H 139 H (70-110) mg/dL Vitamin B1 29 L (38-122) ug/L 12/12/21 Range/Units 07:06 POC Glucose (mg/dL) 111 H (70-110) mg/dL Vitamin B1 (38-122) ug/L Microbiology - Last 24 Hours (Table) 12/06/21 12:43 Blood Culture - Preliminary Blood No Growth after 120 hours Assessment and Plan Plan: Pancytopenia Anemia -Possibly in the setting of recent viral illness, drug reaction vs malignancy -Still with pancytopenia, bone marrow biopsy done today. -SPEP showed no monoclonal protein spike. -Getting one unit of PRBC today for hgb 6.7. -Follow CBC in am Neutropenic fever -on IV cefepime -ID following -CT abd/pel negative for any infection. Hypovolemic hyponatremia Poor appetite -IV fluids Hypomagnesemia -Resolved Hypertension -Continue verapamil, hold losartan DVT prophylaxis - SCD
--- NOTE | 2021-12-12 13:01 | P.PN ---
Subjective Progress Note Date: 12/11/21 Principal diagnosis: Fever Patient is a 65-year old female past medical history of hypertension hyperlipidemia presented to hospital with fatigue low-grade fever in this patient was noticed to be pancytopenic infectious disease was consulted because of her fever. On today's evaluation that is 12/11/2021 the patient remains to be afebrile, the patient is breathing comfortably patient denies having any chest pain or shortness of the cough no nausea vomiting no abdominal pain and no diarrhea Objective - Vital Signs Vital signs: Vital Signs Temp 98.1 F 12/11/21 11:48 Pulse 76 12/11/21 11:48 Resp 16 12/11/21 11:48 BP 112/69 12/11/21 11:48 Pulse Ox 97 12/11/21 11:48 FiO2 Intake & Output 12/10/21 12/11/21 12/11/21 18:59 06:59 18:59 Intake Total 410 Balance 410 Weight 63.503 kg Intake: IV 100 Blood Product 310 Rc Irr As1 Unit 310 [id number] Other: Voiding Method Toilet Toilet # Voids 3 - Exam GENERAL DESCRIPTION: Middle-aged female lying in bed, no distress. No tachypnea or accessory muscle of respiration use. LUNGS: Unlabored breathing. Clear to auscultation anteriorly. No wheeze or crackle. HEART: S1, S2, regular rate and rhythm. No loud murmur ABDOMEN: Soft, no tenderness , guarding or rigidity, no organomegaly EXTREMITIES: No edema of feet. - Labs CBC & Chem 7: 12/11/21 05:53 12/10/21 05:58 Labs: Abnormal Lab Results - Last 24 Hours (Table) 12/06/21 12/10/21 12/10/21 Range/Units 15:18 10:26 16:52 WBC (4.50-10.00) X 10*3/uL RBC (4.10-5.20) X 10*6/uL Hgb (12.0-15.0) g/dL Hct (37.2-46.3) % RDW (11.5-14.5) % Plt Count (140-440) X 10*3/uL Plt Count Comment Neutrophils # (Manual) (2.00-8.90) X 10*3/uL Lymphocytes # (Manual) (0.90-5.00) X 10*3/uL Monocytes # (Manual) (0.20-1.00) X 10*3/uL Eosinophils # (Manual) (0.04-0.35) X 10*3/uL POC Glucose (mg/dL) 118 H (70-110) mg/dL EBV Capsid Ag IgG Intrp POSITIVE A (NEGATIVE) EBV Nuc Ag IgG Interp POSITIVE A (NEGATIVE) Crossmatch See Detail 12/10/21 12/11/21 12/11/21 Range/Units 20:49 05:53 07:23 WBC 0.89 L* (4.50-10.00) X 10*3/uL RBC 2.40 L (4.10-5.20) X 10*6/uL Hgb 7.4 L (12.0-15.0) g/dL Hct 22.0 L (37.2-46.3) % RDW 16.4 H (11.5-14.5) % Plt Count 58 L (140-440) X 10*3/uL Plt Count Comment DECREASED A Neutrophils # (Manual) 0.13 L* (2.00-8.90) X 10*3/uL Lymphocytes # (Manual) 0.73 L (0.90-5.00) X 10*3/uL Monocytes # (Manual) 0.03 L (0.20-1.00) X 10*3/uL Eosinophils # (Manual) 0 L (0.04-0.35) X 10*3/uL POC Glucose (mg/dL) 136 H 114 H (70-110) mg/dL EBV Capsid Ag IgG Intrp (NEGATIVE) EBV Nuc Ag IgG Interp (NEGATIVE) Crossmatch 12/11/21 Range/Units 11:07 WBC (4.50-10.00) X 10*3/uL RBC (4.10-5.20) X 10*6/uL Hgb (12.0-15.0) g/dL Hct (37.2-46.3) % RDW (11.5-14.5) % Plt Count (140-440) X 10*3/uL Plt Count Comment Neutrophils # (Manual) (2.00-8.90) X 10*3/uL Lymphocytes # (Manual) (0.90-5.00) X 10*3/uL Monocytes # (Manual) (0.20-1.00) X 10*3/uL Eosinophils # (Manual) (0.04-0.35) X 10*3/uL POC Glucose (mg/dL) 139 H (70-110) mg/dL EBV Capsid Ag IgG Intrp (NEGATIVE) EBV Nuc Ag IgG Interp (NEGATIVE) Crossmatch Microbiology - Last 24 Hours (Table) 12/06/21 12:43 Blood Culture - Preliminary Blood No Growth after 96 hours Assessment and Plan (1) Neutropenic fever Current Visit: Yes Status: Acute Code(s): D70.9 - NEUTROPENIA, UNSPECIFIED; R50.81 - FEVER PRESENTING WITH CONDITIONS CLASSIFIED ELSEWHERE SNOMED Code(s): 564654987 Plan: 1patient presented to hospital generalized weakness low-grade fever in this patient noted to be pancytopenic with a question of possible hematological malignancy infectious etiology less likely but not entirely excluded 2the patient did have elevated CRP however the procalcitonin is normal. 3CT abdominal pelvis did not show any acute abnormality. 4 Patient is status post bone marrow biopsy results are currently pending patient is covered with the empiric cefepime however culture has been negative so far and no obvious focus of infection antibiotic can be safely discontinued discussed with the admitting physician working on discharge Time with Patient: Less than 30
--- NOTE | 2021-12-20 00:05 | P.PN ---
Subjective Progress Note Date: 12/10/21 Principal diagnosis: Fever Patient is a 65-year old female past medical history of hypertension hyperlipidemia presented to hospital with fatigue low-grade fever in this patient was noticed to be pancytopenic infectious disease was consulted because of her fever. On today's evaluation that is 12/10/2021 the patient remains to be afebrile, the patient is breathing comfortably patient denies having any chest pain or shortness of the cough no nausea vomiting no abdominal pain and no diarrhea Objective - Vital Signs Vital signs: Vital Signs Temp 99.0 F 12/10/21 12:00 Pulse 92 12/10/21 12:00 Resp 18 12/10/21 12:00 BP 107/72 12/10/21 12:00 Pulse Ox 99 12/10/21 12:00 FiO2 Intake & Output 12/09/21 12/10/21 12/10/21 18:59 06:59 18:59 Intake Total 740 100 Balance 740 100 Intake: IV 200 100 Cefepime 2 gm In Sodium 200 Chloride 0.9% 100 ml @ 25 mls/hr IVPB Q8H [facility] Rx#: [id number] Oral 540 Other: Voiding Method Toilet Toilet # Voids 2 - Exam GENERAL DESCRIPTION: Middle-aged female lying in bed, no distress. No tachypnea or accessory muscle of respiration use. LUNGS: Unlabored breathing. Clear to auscultation anteriorly. No wheeze or crackle. HEART: S1, S2, regular rate and rhythm. No loud murmur ABDOMEN: Soft, no tenderness , guarding or rigidity, no organomegaly EXTREMITIES: No edema of feet. - Labs CBC & Chem 7: 12/11/21 05:53 12/10/21 05:58 Labs: Abnormal Lab Results - Last 24 Hours (Table) 12/09/21 12/09/21 12/09/21 Range/Units 11:06 17:09 20:15 WBC 0.7 L* (3.8-10.6) k/uL RBC 2.30 L (3.80-5.40) m/uL Hgb 7.4 L (11.4-16.0) gm/dL Hct 21.1 L (34.0-46.0) % RDW 15.6 H (11.5-15.5) % Plt Count 61 L (150-450) k/uL Plt Count Comment Neutrophils # (Manual) (2.00-8.90) X 10*3/uL Lymphocytes # (Manual) (0.90-5.00) X 10*3/uL Monocytes # (Manual) (0.20-1.00) X 10*3/uL Eosinophils # (Manual) (0.04-0.35) X 10*3/uL Creatinine (0.6-1.5) mg/dL BUN/Creatinine Ratio (12.00-20.00) Ratio Glucose (70-110) mg/dL POC Glucose (mg/dL) 141 H 158 H (70-110) mg/dL Calcium (8.7-10.3) mg/dL AST (13-35) U/L ALT (8-44) U/L Albumin (3.8-4.9) g/dL Albumin/Globulin Ratio (1.60-3.17) g/dL Crossmatch 12/10/21 12/10/21 12/10/21 Range/Units 05:58 05:58 07:11 WBC 0.74 L* (3.8-10.6) k/uL RBC 2.10 L (3.80-5.40) m/uL Hgb 6.7 L* (11.4-16.0) gm/dL Hct 20.0 L (34.0-46.0) % RDW 15.4 H (11.5-15.5) % Plt Count 50 L (150-450) k/uL Plt Count Comment DECREASED A Neutrophils # (Manual) 0.10 L* (2.00-8.90) X 10*3/uL Lymphocytes # (Manual) 0.64 L (0.90-5.00) X 10*3/uL Monocytes # (Manual) 0 L (0.20-1.00) X 10*3/uL Eosinophils # (Manual) 0 L (0.04-0.35) X 10*3/uL Creatinine 0.5 L (0.6-1.5) mg/dL BUN/Creatinine Ratio 24.38 H (12.00-20.00) Ratio Glucose 115 H (70-110) mg/dL POC Glucose (mg/dL) 135 H (70-110) mg/dL Calcium 8.2 L (8.7-10.3) mg/dL AST 56 H (13-35) U/L ALT 46 H (8-44) U/L Albumin 3.4 L (3.8-4.9) g/dL Albumin/Globulin Ratio 1.18 L (1.60-3.17) g/dL Crossmatch 12/10/21 12/10/21 Range/Units 10:26 12:01 WBC (3.8-10.6) k/uL RBC (3.80-5.40) m/uL Hgb (11.4-16.0) gm/dL Hct (34.0-46.0) % RDW (11.5-15.5) % Plt Count (150-450) k/uL Plt Count Comment Neutrophils # (Manual) (2.00-8.90) X 10*3/uL Lymphocytes # (Manual) (0.90-5.00) X 10*3/uL Monocytes # (Manual) (0.20-1.00) X 10*3/uL Eosinophils # (Manual) (0.04-0.35) X 10*3/uL Creatinine (0.6-1.5) mg/dL BUN/Creatinine Ratio (12.00-20.00) Ratio Glucose (70-110) mg/dL POC Glucose (mg/dL) 158 H (70-110) mg/dL Calcium (8.7-10.3) mg/dL AST (13-35) U/L ALT (8-44) U/L Albumin (3.8-4.9) g/dL Albumin/Globulin Ratio (1.60-3.17) g/dL Crossmatch See Detail Microbiology - Last 24 Hours (Table) 12/06/21 12:43 Blood Culture - Preliminary Blood No Growth after 72 hours Assessment and Plan (1) Neutropenic fever Status: Acute Code(s): D70.9 - NEUTROPENIA, UNSPECIFIED; R50.81 - FEVER PRESEN TING WITH CONDITIONS CLASSIFIED ELSEWHERE SNOMED Code(s): 070504905 Plan: 1patient presented to hospital generalized weakness low-grade fever in this patient noted to be pancytopenic with a question of possible hematological malignancy infectious etiology less likely but not entirely excluded 2the patient did have elevated CRP however the procalcitonin is normal. 3CT abdominal pelvis did not show any acute abnormality. 4 Patient is status post bone marrow biopsy completed this morning, patient to continue empiric cefepime while waiting for the culture to finalize and monitor clinical course closely Time with Patient: Less than 30
--- NOTE | 2021-12-20 00:06 | P.PN ---
Subjective Progress Note Date: 12/12/21 Principal diagnosis: Fever Patient is a 65-year old female past medical history of hypertension hyperlipidemia presented to hospital with fatigue low-grade fever in this patient was noticed to be pancytopenic infectious disease was consulted because of her fever. On today's evaluation that is 12/12/2021 the patient denies having any fever or any chills patient is breathing comfortably on room air no chest pain shortness with or cough no nausea no bleeding no abdominal pain or diarrhea Objective - Vital Signs Vital signs: Vital Signs Temp 98.3 F 12/11/21 21:00 Pulse 85 12/11/21 21:00 Resp 16 12/11/21 21:00 BP 118/70 12/11/21 21:00 Pulse Ox 97 12/11/21 21:00 FiO2 Intake & Output 12/11/21 12/12/21 12/12/21 18:59 06:59 18:59 Weight 63.503 kg Other: Voiding Method Toilet # Voids 2 - Exam GENERAL DESCRIPTION: Middle-aged female lying in bed, no distress. No tachypnea or accessory muscle of respiration use. LUNGS: Unlabored breathing. Clear to auscultation anteriorly. No wheeze or crackle. HEART: S1, S2, regular rate and rhythm. No loud murmur ABDOMEN: Soft, no tenderness , guarding or rigidity, no organomegaly EXTREMITIES: No edema of feet. - Labs CBC & Chem 7: 12/11/21 05:53 12/10/21 05:58 Labs: Abnormal Lab Results - Last 24 Hours (Table) 12/06/21 12/11/21 12/11/21 Range/Units 15:26 17:07 20:54 POC Glucose (mg/dL) 135 H 139 H (70-110) mg/dL Vitamin B1 29 L (38-122) ug/L 12/12/21 Range/Units 07:06 POC Glucose (mg/dL) 111 H (70-110) mg/dL Vitamin B1 (38-122) ug/L Microbiology - Last 24 Hours (Table) 12/06/21 12:43 Blood Culture - Preliminary Blood No Growth after 120 hours Assessment and Plan (1) Neutropenic fever Status: Acute Code(s): D70.9 - NEUTROPENIA, UNSPECIFIED; R50.81 - FEVER PRESENTING WITH CONDITIONS CLASSIFIED ELSEWHERE SNOMED Code(s): 952604823 Plan: 1patient presented to hospital generalized weakness low-grade fever in this patient noted to be pancytopenic with a question of possible hematological malignancy infectious etiology less likely but not entirely excluded 2the patient did have elevated CRP however the procalcitonin is normal. 3CT abdominal pelvis did not show any acute abnormality. 4 Patient is status post bone marrow biopsy completed , Results are currently pending patient culture has been negative she is currently doing well off antibiotic therapy recommending no antibiotic on discharge and close outpatient follow-up Time with Patient: Less than 30
--- NOTE | 2021-12-23 05:56 | CDI ---
Documentation Clarification Form Date: 12/23/21 From: Parul Orr Admit Date: 12/06/2021 11:13:00 AM Patient Name: Winnie Smith I Visit Number: [id number] Discharge Date: 12/12/2021 01:18:00 PM ATTENTION: The Clinical Documentation Specialists (CDI) and [facility] Coding Staff appreciate your assistance in clarifying documentation. Please respond to the clarification below the line at the bottom and electronically sign. The CDI & [facility] Coding staff will review the response and follow-up if needed. Please note: Queries are made part of the Legal Health Record. If you have any questions, please contact the author of this message via ITS. Dr. Janay Gonzalez, The final diagnosis of the pathology report states "Bone marrow is consistent with acute myeloid leukemia with t(8;21) (q22;q22) RUNX1-RUNX1 translocation". Coding guidelines do not allow coding professionals to code based on pathology results; therefore, clarification is requested. History/risk factors: T2DM w diabetic mononeuropathy, hypertensive heat disease wo heart failure, fever w neutropenia, hyponatremia, dehydration, hypomagnesemia, HLD, GERD Clinical Indicators: Patient is a 65-year-old female with past medical history of hypertension, dyslipidemia presenting with 2 weeks of fatigue, low-grade fevers, chills, occasional abdominal pain. She claims that about 2 weeks ago she had mild flulike symptoms, and since then she has not been able to function at her optimal level. Treatment: IV fluids, magnesium, broad spectrum abx, bone marrow biopsy and received one unit of PRBC's Please clarify if you agree with the pathology report diagnosis of Bone marrow is consistent with acute myeloid leukemia: [ ] Yes [ ] No [ ] Other (please specify) [ ] Unable to determine Yes MTDD
== END 2021-12-12 13:18 | disposition home or self-care (01) | DRG 835 ==
LOC: EC 09:06 → 5NMEDONC 11:13
PROVIDERS: ADMIT Family Medicine; ATTEND Family Medicine
PROC: 30233N1 Transfusion of Nonautologous Red Blood Cells into Peripheral Vein, Percutaneous Approach (ICD-10-PCS; 2021-12-10)
PROC: 07DR3ZX Extraction of Iliac Bone Marrow, Percutaneous Approach, Diagnostic (ICD-10-PCS; principal; 2021-12-10 08:05)
DX: C92.00 Acute myeloblastic leukemia, not having achieved remission (principal); D61.818 Other pancytopenia; E87.1 Hypo-osmolality and hyponatremia; D70.9 Neutropenia, unspecified; E11.41 Type 2 diabetes mellitus with diabetic mononeuropathy; I11.9 Hypertensive heart disease without heart failure; R50.81 Fever presenting with conditions classified elsewhere; Z20.822 Contact with and (suspected) exposure to COVID-19; E86.1 Hypovolemia; E86.0 Dehydration; E83.42 Hypomagnesemia; E78.5 Hyperlipidemia, unspecified; K21.9 Gastro-esophageal reflux disease without esophagitis; R91.8 Other nonspecific abnormal finding of lung field; Z79.82 Long term (current) use of aspirin; Z79.84 Long term (current) use of oral hypoglycemic drugs; Z79.899 Other long term (current) drug therapy; Z87.11 Personal history of peptic ulcer disease; Z87.440 Personal history of urinary (tract) infections; Z86.718 Personal history of other venous thrombosis and embolism; Z88.5 Allergy status to narcotic agent; Z91.040 Latex allergy status
CPT/HCPCS: 36415; 38222; 71046; 74177; 80048; 80053; 80074; 81001; 82306; 82607; 82728; 82746; 82784; 83036; 83540; 83550; 83735; 83883; 83921; 84145; 84165; 84425; 84484; 85025; 85045; 85610; 85652; 85730; 86038; 86140; 86334; 86431; 86644; 86645; 86663; 86664; 86665; 86747; 86850; 86900; 86901; 86920; 87040; 87390; 87636; 93005; 99285

== ENCOUNTER 2021-12-16 08:35 | Inpatient (IN) | payer MEDICARE ==
[2021-12-16] MEDS ORDERED: LIDOCAINE 1% INJ 10MG/ML (30 ML VIAL-PF) SQ ONE (10:04)
--- NOTE | 2021-12-16 10:42 | IR ---
PICC LINE PLACEMENT: HISTORY: Infection requiring long-term antibiotic therapy PROCEDURE: Ultrasound and fluoroscopic guidance of PICC line placement. COMPLICATIONS: None ANESTHESIA: 1. 1% Lidocaine locally. FINDINGS/TECHNIQUE: The procedure was explained to the patient. The risks, complications, benefits and alternatives were discussed and any questions were answered. Informed consent was obtained. The patient was placed supine on the fluoroscopic table and prepped and draped in the usual sterile fash ion. Utilizing a 21 gauge needle and sonographic and fluoroscopic guidance, access in the left susp icious filling vein was achieved and there is placement of a 0.018 guidewire. The vein is patent. A 4-F sheath was placed over the guidewire. The guidewire and dilator were removed and a 4-F. PICC li ne was placed through the sheath with the tip at the level of the SVC. The sheath was removed, the c atheter was flushed and sutured into position. The patient was stable throughout the procedure and r emained stable upon discharge from the Department of Radiology. The vein puncture was patent under ultrasound. A ames scale image was obtained to document patency of the vein punctured. All elements of the maximal barrier technique were utilized. FLUOROSCOPY TIME: 0.1 minutes of fluoroscopy and one image submitted IMPRESSION: Successful PICC line placement under ultrasound and fluoroscopic guidance.
[2021-12-16] MEDS ORDERED: ONDANSETRON 4 MG/2 ML VIAL IVP PRN (12:00)
[2021-12-16 12:01] LABS: HCT 24.6 % (34.0-46.0); HGB 8.7 gm/dL (11.4-16.0); Hypochromasia Slight; MCH 32.7 pg (25.0-35.0); MCHC 35.5 g/dL (31.0-37.0); MCV 92.2 fL (80.0-100.0); Mean Platelet Volume 8.8; Poikilocytosis Slight; RBC 2.67 m/uL (3.80-5.40); RDW 15.5 % (11.5-15.5)
[2021-12-16 12:07] LABS: ALT 36 U/L (4-34); African American GFR (CKD) >90 (>60 ml/min/1.73 sqM); Albumin/Globulin Ratio 1.3; Anion Gap 6 mmol/L; Blood Urea Nitrogen 13 mg/dL (7-17); Carbon Dioxide 28 mmol/L (22-30); Chloride 106 mmol/L (98-107); Globulin 3.2 g/dL; Glucose 105 mg/dL (74-99); Non-African American GFR(CKD) >90 (>60 ml/min/1.73 sqM); Sodium 140 mmol/L (137-145); Total Bilirubin 0.5 mg/dL (0.2-1.3); Total Protein 7.2 g/dL (6.3-8.2)
[2021-12-16 12:19] LABS: INR 1.1 (<1.2); Prothrombin Time 11.4 sec (9.0-12.0)
[2021-12-16 12:24] LABS: AST 30 U/L (14-36); Alkaline Phosphatase 78 U/L (38-126)
[2021-12-16 13:05] LABS: Platelet Count 61 k/uL (150-450); WBC 0.9 k/uL (3.8-10.6)
[2021-12-16 13:48] LABS: Anisocytosis (M) Present
[2021-12-16 13:51] LABS: Rouleaux Present
[2021-12-16] MEDS: SALT AND SODA MOUTHWASH 1,000 ML PO SCH ×3 (14:19→21:13)
[2021-12-16] MEDS: SODIUM CHLORIDE 0.9% 1,000 ML IV SCH (14:20)
--- NOTE | 2021-12-16 16:25 | P.HPIM ---
History of Present Illness H&P Date: 12/16/21 Chief Complaint: AML Mrs. Smith is a pleasant 65-year-old female we were asked to see in consult 12/06/21 at [facility]. Pt had been experiencing B symptoms and was p ancytopenic. She had progressive symptoms of shortness of breath, night sweats, fevers, unintentional weight loss, started about 2 weeks prior to presentation, this persisted and progressed where she was having difficulty performing ADLs. She denied any personal history of cancer or autoimmune disease. She had a cold a few weeks prior to symptoms, covid booster September 2021. Patient is medicated for type 2 diabetes mellitus with oral medications only, medicated for hypertension. On admission to the hospital hemoglobin was 8, WBC 0.7, platelets 52,000. CMP was for the most part, within normal limits. She had pancultures done as well as viral workup and started on prophylactic antibiotics. Medications were adjusted to rule out medication effect on the counts. Bone marrow biopsy and aspirate with Dr. Parisi, 12/10/21. She had not required a transfusion, she had not spiked any temps while inpatient, pancultures were negative so, patient was discharged home. Over the weekend Dr. Parisi was contacted by the Hematopathologist reading the bone marrow biopsy, consistent with AML. Cytogenetics pending. Patient was seen in the office Tuesday morning for CBC. 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 Prognosis without treatment, disease is typically fatal within weeks. Treatment options can offer up to a 40% disease stability, treatment options including CarT and BMT can offer the hope of cure, in the right circumstances/right pt. Risks of treatment include likely need for transfusions, risk of infection or hemorrhage, possibility of intensive care. All patient and her 's questions were answered to their satisfaction. Agreeable to start treatment once pathology has been finalized and signed out-that occurred yesterday afternoon. Patient is currently admitted for induction chemotherapy, 7+3 regimen. Patient has no new symptoms to report. She is tolerating oral intake. She is not in any pain. Review of Systems 10 point ROS is neg except as stated in HPI Past Medical History Past Medical History: Cancer (AML 12/10/21), Diabetes Mellitus, GERD/Reflux, Hypertension Additional Past Medical History / Comment(s): heart palpatations, neuropathy salvador feet, irregular bowel movements, benign nodules in lungs since about 2017, uterine fibroids, gastric ulcer, enlarged heart, uti's, states everything tastes salty since 2-3 weeks ago. History of Any Multi-Drug Resistant Organisms: None Reported Past Surgical History: Section, Cholecystectomy, Hernia Repair, Orthopedic Surgery Additional Past Surgical History / Comment(s): surgery for fx nose, tailbone cyst removed, left oophorectomy, partial rt oophorectomy, right shoulder surgery, hernia repair during gallbladder surgery, uterine fibroids removed Past Anesthesia/Blood Transfusion Reactions: Previous Problems w/ Anesthesia, Motion Sickness, Postoperative Nausea & Vomiting (PONV) Additional Past Anesthesia/Blood Transfusion Reaction / Comment(s): "very hard coming out of anesthesia" Past Psychological History: No Psychological Hx Reported Smoking Status: Never smoker Past Alcohol Use History: None Reported, Rare Past Drug Use History: None Reported - Past Family History Father Family Medical History: Congestive Heart Failure (CHF) Additional Family Medical History / Comment(s): at age 83, possibly from heart issues- unsure. Mother Family Medical History: Deep Vein Thrombosis (DVT) Additional Family Medical History / Comment(s): deseased at age 77 from cva Medications and Allergies Home Medications Medication Instructions Recorded Confirmed Type [place]-3 Fatty Acids/Fish Oil [Fish 1 cap PO DAILY 01/30/18 12/16/21 History Oil 1,000 mg Softgel] Verapamil HCl [Verelan Pm] 100 mg PO HS 01/30/18 12/16/21 History metFORMIN HCL [Glucophage] 1,000 mg PO DAILY 01/30/18 12/16/21 History Fluconazole [Diflucan] 100 mg PO DAILY 12/16/21 12/16/21 History Allergies Allergy/AdvReac Type Severity Reaction Status Date / Time hydrocodone [From Vicodin] AdvReac Nausea & Verified 12/16/21 11:54 Vomiting & Diarrhea latex AdvReac Itching Verified 12/16/21 11:54 Physical Exam - Constitutional General appearance: cooperative, no acute distress, obese - EENT Eyes: anicteric sclerae, EOMI ENT: hearing grossly normal, normal oropharynx - Neck Neck: no lymphadenopathy - Respiratory Respiratory: bilateral: CTA - Cardiovascular Rhythm: regular Heart sounds: normal: S1, S2 Abnormal Heart Sounds: no systolic murmur, no diastolic murmur, no rub, no S3 Gallop, no S4 Gallop, no click, no other leg Peripheral Edema: bilateral: None - Gastrointestinal General gastrointestinal: no absent bowel sounds, no decreased bowel sounds, no distended, no hepatomegaly, no hyperactive bowel sounds, normal bowel sounds, no organomegaly, no rigid, no scaphoid, soft, no splenomegaly, no tenderness, no umbilical hernia, no ventral hernia - Integumentary Integumentary: normal - Neurologic Neurologic: CNII-XII intact - Musculoskeletal Musculoskeletal: strength equal bilaterally - Psychiatric Psychiatric: A&O x's 3, appropriate affect, intact judgment & insight Results CBC & Chem 7: 12/16/21 11:45 12/16/21 11:45 Thrombosis Risk Factor Assmnt - DVT/VTE Prophylaxis DVT/VTE Prophylaxis: Mechanical Prophylaxis ordered Assessment and Plan (1) Acute myeloid leukemia Current Visit: Yes Status: Acute Priority: High Code(s): C92.00 - ACUTE MYELOBLASTIC LEUKEMIA, NOT HAVING ACHIEVED REMISSION SNOMED Code(s): 29620957 (2) DM II (diabetes mellitus, type II), controlled Current Visit: No Status: Chronic Priority: Low Code(s): E11.9 - TYPE 2 DIABETES MELLITUS WITHOUT COMPLICATIONS SNOMED Code(s): 95000988 (3) HTN (hypertension) Current Visit: Yes Status: Chronic Priority: Low Code(s): I10 - ESSENTIAL (PRIMARY) HYPERTENSION SNOMED Code(s): 82892439 Plan: Admitted for induction chemotherapy 7+3 regimen. Double lumen PICC line insertion. Echo for baseline, cardiotoxic chemotherapy. Supportive medications ordered. Preventative measures. Regular diet-patient encouraged to have things brought from home. [place] fluids. Activity 5 times a day with shoes on. Up in the chair for all meals. Daily weights. Labs daily. Daily follow-up. Home medications reconciled. Vital signs few shift. DVT prophylaxis with STDs. GI prophylaxis attests: I have seen and examined pt, performed H&P, developed impression and plan of care. Discussed with dictator. Agree with documentation, dictated as a scribe.
--- NOTE | 2021-12-16 18:46 | CA ---
Transthoracic Echo Report Name: Winnie Smith Age: 65 Gender: F : 1955 Exam Date: 12/16/2021 10:24 Exam Location: [facility] Ht (in): 64 Wt (lb): 243 Ordering Physician: Avi Parisi MD Attending/Referring Phys: Laboratory Tech Chante Caldwell RDCS Procedure CPT: Indications: Pre Chemotherapy Cardiac Hx: Technical Quality: Good Contrast 1: N/A Total Dose (mL): Contrast 2: Total Dose (mL): MEASUREMENTS (Male / Female) Normal Values 2D ECHO LV Diastolic Diameter PLAX 4.7 cm 4.2 - 5.9 / 3.9 - 5.3 cm LV Systolic Diameter PLAX 4.4 cm IVS Diastolic Thickness 1.1 cm 0.6 - 1.0 / 0.6 - 0.9 cm LVPW Diastolic Thickness 1.0 cm 0.6 - 1.0 / 0.6 - 0.9 cm LV Relative Wall Thickness 0.5 RV Internal Dim ED PLAX 3.3 cm LA Systolic Diameter LX 3.6 cm 3.0 - 4.0 / 2.7 - 3.8 cm LA Volume 53.6 cm??? 18 - 58 / 22 - 52 cm??? M-MODE Aortic Root Diameter MM 3.6 cm LA Systolic Diameter MM 3.9 cm LA Ao Ratio MM 1.1 MV E Point Septal Separation 0.8 cm AV Cusp Separation MM 2.2 cm DOPPLER MV Area PHT 4.9 cm??? Mitral E Point Velocity 72.3 cm/s Mitral A Point Velocity 61.5 cm/s Mitral E to A Ratio 1.2 MV Deceleration Time 155.9 ms MV E' Velocity 8.5 cm/s Mitral E to MV E' Ratio 8.5 TR Peak Velocity 249.6 cm/s TR Peak Gradient 24.9 mmHg Right Ventricular Systolic Press 29.8 mmHg FINDINGS Left Ventricle Mildly increased septal wall thickness. Mildly increased posterior wall thickness. Left ventricular ejection fraction is estimated at 55%. Right Ventricle Normal right ventricular size and function. Right ventricular systolic pressure within normal limits. Right Atrium Normal right atrial size. Left Atrium Mildly increased left atrial volume. Mitral Valve Structurally normal mitral valve. Mild mitral regurgitation. Aortic Valve Trileaflet aortic valve. Tricuspid Valve Structurally normal tricuspid valve. Mild tricuspid regurgitation. Pulmonic Valve Structurally normal pulmonic valve. Pericardium No thickening/calcification of the pericardium. Aorta Normal size aortic root and proximal ascending aorta. CONCLUSIONS Normal left ventricular dimension and systolic function. The ejection fraction is 55% Normal right ventricular dimension and systolic function Normal intracardiac valves No evidence of pericardial effusion Previewed by: Dr. Pankaj Hubbard MD (Electronically Signed) Final Date: 16 December 2021 18:45
[2021-12-16] MEDS: ONDANSETRON 16 MG in SODIUM CHLORIDE 0.9% 50 ML IVPB SCH (20:19)
[2021-12-16] MEDS: VERAPAMIL SR 120 MG TABLET.ER PO SCH (20:20)
[2021-12-16] MEDS: FAMOTIDINE 20 MG/2 ML VIAL IVP SCH (20:20)
[2021-12-16] MEDS: DEXAMETHASONE SOD PHOSPHATE 10 MG/ML 1 ML VIAL IVP SCH (20:20)
[2021-12-16] MEDS: IDArubicin HCL 20 MG, IDArubicin HCL 5 MG in EMPTY SYRINGE 1 SYR IV SCH ×2 (20:41)
[2021-12-16] MEDS: CYTARABINE IV SCH (21:02)
[2021-12-16] MEDS: SODIUM CHLORIDE 0.9% IV SCH (21:02)
[2021-12-16] MEDS: OLANZapine 2.5 MG TAB PO SCH (21:02)
[2021-12-17] MEDS: SODIUM CHLORIDE 0.9% 1,000 ML IV SCH ×3 (00:26→18:09)
[2021-12-17] MEDS: SALT AND SODA MOUTHWASH 1,000 ML PO SCH ×5 (00:30→21:05)
[2021-12-17] MEDS: metFORMIN 500 MG TAB PO SCH (08:09)
[2021-12-17] MEDS: FLUCONAZOLE 100 MG TAB PO SCH (08:09)
[2021-12-17 11:24] LABS: African American GFR (CKD) 111.6 (60.0-200.0); Albumin 3.8 g/dL (3.8-4.9); Albumin/Globulin Ratio 1.27 (1.60-3.17); Anion Gap 10.9 mmol/L (10.00-18.00); BUN/Creat Ratio 21.67 Ratio (12.00-20.00); Calcium 8.9 mg/dL (8.7-10.3); Carbon Dioxide 23.1 mmol/L (20.0-27.5); Non-African American GFR(CKD) 96.3 (60.0-200.0); Phosphorus 3.8 mg/dL (2.4-5.1); Potassium 4.3 mmol/L (3.5-5.5); Total Bilirubin 0.4 mg/dL (0.30-1.20); Total Protein 6.8 g/dL (6.2-8.2); Uric Acid 3.7 mg/dL (2.9-7.7)
[2021-12-17 11:33] LABS: Acanthocytes 2+; Anisocytosis (M) 2+; Basophils # (A) 0 X 10*3/uL (0.00-0.10); Basophils % (A) 0 %; Eosinophils # (A) 0 X 10*3/uL (0.04-0.35); Eosinophils % (A) 0 %; HCT 23.4 % (37.2-46.3); HGB 7.9 g/dL (12.0-15.0); Immature Grans, Automated 0 %; Immature Platelet Fraction 1.5 % (1.1-6.1); Lymphocytes # (A) 0.21 X 10*3/uL (0.90-5.00); Lymphocytes % (A) 48.8 %; MCH 31.2 pg (27.0-32.0); MCHC 33.8 g/dL (32.0-37.0); MCV 92.5 fL (80.0-97.0); Mean Platelet Volume 10.2 fL (9.5-12.2); Monocytes # (A) 0.06 X 10*3/uL (0.20-1.00); NRBC Per 100 WBC 0 /100 WBCS (0.0-0.0); Neutrophils # (A) 0.16 X 10*3/uL (1.80-7.70); Neutrophils % (A) 37.2 %; Platelet Count 62 X 10*3/uL (140-440); RBC 2.53 X 10*6/uL (4.10-5.20); RDW 15.3 % (11.5-14.5); WBC 0.43 X 10*3/uL (4.50-10.00)
--- NOTE | 2021-12-17 18:56 | P.PN ---
Subjective Progress Note Date: 12/17/21 Principal diagnosis: AML, admit CIVI 7+3 induction chemotherapy In follow-up today patient denies fevers, chills, oral irritation, sore throat, cough, shortness of breath, chest pain, nausea, indigestion, heartburn, abdominal pain or cramping, dysuria, hematuria, diarrhea, constipation, swelling in the legs, bleeding, rashes or pain. She is ambulating. She is tolerating plenty of fluids. Objective - Vital Signs Vital signs: Vital Signs Temp 98.3 F 12/17/21 16:09 Pulse 82 12/17/21 16:09 Resp 16 12/17/21 16:09 BP 122/72 12/17/21 16:09 Pulse Ox 97 12/17/21 16:09 FiO2 Intake & Output 12/16/21 12/17/21 12/17/21 18:59 06:59 18:59 Intake Total 1505 2178 Balance 1505 2178 Weight 107.8 kg 108.5 kg Intake: Intake, IV Titration 1505 1458 Amount Cytarabine/Pf 320 mg In 230 258 Sodium Chloride 0.9% 500 ml 500 ml @ 21.5 mls/hr IV Q24H CRISTIN Rx#:[id number] IDArubicin HCL 20 mg 25 IDArubicin HCL 5 mg In Empty Syringe 1 syr @ 150 mls/hr IV Q24H CRISTIN Rx#: [id number] Ondansetron 16 mg In 50 Sodium Chloride 0.9% 50 ml @ 232 mls/hr IVPB Q24H CRISTIN Rx#:[id number] Sodium Chloride 0.9% 1, 1200 1200 000 ml @ 100 mls/hr IV . Q10H CRISTIN Rx#:[id number] Oral 720 Other: Voiding Method Toilet Toilet # Voids 3 6 - Constitutional General appearance: Present: average body habitus, cooperative, no acute distress - EENT Eyes: Present: anicteric sclerae, EOMI ENT: Present: hearing grossly normal, normal oropharynx - Respiratory Respiratory: bilateral: CTA - Cardiovascular Rhythm: regular Heart sounds: normal: S1, S2 Abnormal Heart Sounds: Absent: systolic murmur, diastolic murmur, rub, S3 Gallop, S4 Gallop, click, other - Peripheral edema leg Peripheral Edema: bilateral: None - Gastrointestinal General gastrointestinal: Present: normal bowel sounds, soft - Integumentary Integumentary: Present: normal - Neurologic Neurologic: Present: CNII-XII intact - Musculoskeletal Musculoskeletal: Present: strength equal bilaterally - Psychiatric Psychiatric: Present: A&O x's 3, appropriate affect, intact judgment & insight - Labs CBC & Chem 7: 12/17/21 06:57 12/17/21 06:57 Labs: Abnormal Lab Results - Last 24 Hours (Table) 12/17/21 12/17/21 Range/Units 06:57 06:57 WBC 0.43 L* (4.50-10.00) X 10*3/uL RBC 2.53 L (4.10-5.20) X 10*6/uL Hgb 7.9 L (12.0-15.0) g/dL Hct 23.4 L (37.2-46.3) % RDW 15.3 H (11.5-14.5) % Plt Count 62 L (140-440) X 10*3/uL Plt Count Comment DECREASED A Neutrophils # 0.16 L* (1.80-7.70) X 10*3/uL Lymphocytes # 0.21 L (0.90-5.00) X 10*3/uL Monocytes # 0.06 L (0.20-1.00) X 10*3/uL Eosinophils # 0 L (0.04-0.35) X 10*3/uL BUN/Creatinine Ratio 21.67 H (12.00-20.00) Ratio Glucose 177 H (70-110) mg/dL Albumin/Globulin Ratio 1.27 L (1.60-3.17) g/dL Assessment and Plan (1) Acute myeloid leukemia Current Visit: Yes Status: Acute Priority: High Code(s): C92.00 - ACUTE MYELOBLASTIC LEUKEMIA, NOT HAVING ACHIEVED REMISSION SNOMED Code(s): 40142016 (2) DM II (diabetes mellitus, type II), controlled Current Visit: No Status: Chronic Priority: Low Code(s): E11.9 - TYPE 2 DIABETES MELLITUS WITHOUT COMPLICATIONS SNOMED Code(s): 23507753 (3) HTN (hypertension) Current Visit: Yes Status: Chronic Priority: Low Code(s): I10 - ESSENTIAL (PRIMARY) HYPERTENSION SNOMED Code(s): 37981755 Plan: Admitted for induction chemotherapy 7+3 regimen. Double lumen PICC line insertion. Echo for baseline, LVEF 55%. Supportive medications. Preventative measures. Regular diet-patient encouraged to have things brought from home. [place] fluids. Activity 5 times a day with shoes on. Up in the chair for all meals. Daily weights. Reviewed labs today, as expected. No G-CSF. Transfuse with irradiated blood products only. Transfuse for hemoglobin less than 7 and a platelet count less than 10,000, unless patient is symptomatic. Labs daily. Daily follow-up. Home medications reconciled. Vital signs few shift. DVT prophylaxis with STDs. GI prophylaxis Will see what CBG is tomorrow, May have to consider sliding scale insulin While inpatient. attests: I have seen and examined pt, performed H&P, developed impression and plan of care. Discussed with dictator. Agree with documentation, dictated as a scribe.
[2021-12-17] MEDS: OLANZapine 2.5 MG TAB PO SCH (21:05)
[2021-12-17] MEDS: VERAPAMIL SR 120 MG TABLET.ER PO SCH (21:05)
[2021-12-17] MEDS: ONDANSETRON 16 MG in SODIUM CHLORIDE 0.9% 50 ML IVPB SCH (21:31)
[2021-12-17] MEDS: FAMOTIDINE 20 MG/2 ML VIAL IVP SCH (21:31)
[2021-12-17] MEDS: DEXAMETHASONE SOD PHOSPHATE 10 MG/ML 1 ML VIAL IVP SCH (21:32)
[2021-12-17] MEDS: IDArubicin HCL 20 MG, IDArubicin HCL 5 MG in EMPTY SYRINGE 1 SYR IV SCH ×2 (22:22)
[2021-12-17] MEDS: CYTARABINE IV SCH (22:36)
[2021-12-17] MEDS: SODIUM CHLORIDE 0.9% IV SCH (22:36)
[2021-12-18] MEDS: SALT AND SODA MOUTHWASH 1,000 ML PO SCH ×6 (01:01→23:57)
[2021-12-18] MEDS: SODIUM CHLORIDE 0.9% 1,000 ML IV SCH ×3 (04:39→23:57)
[2021-12-18] MEDS: metFORMIN 500 MG TAB PO SCH (07:52)
[2021-12-18] MEDS: FLUCONAZOLE 100 MG TAB PO SCH (07:52)
[2021-12-18 08:06] LABS: Phosphorus 3.6 mg/dL (2.5-4.5); Uric Acid 3.8 mg/dL (3.7-7.4)
[2021-12-18 10:59] LABS: African American GFR (CKD) 117.3 (60.0-200.0); Albumin 3.9 g/dL (3.8-4.9); Albumin/Globulin Ratio 1.34 (1.60-3.17); Anion Gap 10.5 mmol/L (10.00-18.00); BUN/Creat Ratio 32.69 Ratio (12.00-20.00); Blood Urea Nitrogen 16.9 mg/dL (9.0-27.0); Calcium 8.9 mg/dL (8.7-10.3); Carbon Dioxide 23.7 mmol/L (20.0-27.5); Globulin 2.9 g/dL (1.6-3.3); Non-African American GFR(CKD) 101.2 (60.0-200.0); Potassium 4.1 mmol/L (3.5-5.5); Total Bilirubin 0.4 mg/dL (0.30-1.20); Total Protein 6.7 g/dL (6.2-8.2)
[2021-12-18 11:07] LABS: HGB 7.7 g/dL (12.0-15.0); MCH 30.8 pg (27.0-32.0); MCHC 32.1 g/dL (32.0-37.0); Mean Platelet Volume 8.7 fL (9.5-12.2); NRBC Per 100 WBC 0 /100 WBCS (0.0-0.0); Platelet Count 54 X 10*3/uL (140-440); RDW 15.3 % (11.5-14.5); WBC 0.48 X 10*3/uL (4.50-10.00)
[2021-12-18 11:21] LABS: Basophils # (A) 0 X 10*3/uL (0.00-0.10); Basophils % (A) 0 %; Eosinophils # (A) 0 X 10*3/uL (0.04-0.35); Eosinophils % (A) 0 %; Immature Grans, Automated 0 %; Lymphocytes # (A) 0.18 X 10*3/uL (0.90-5.00); Lymphocytes % (A) 37.5 %; Monocytes # (A) 0.02 X 10*3/uL (0.20-1.00); Monocytes % (A) 4.2 %; Neutrophils # (A) 0.28 X 10*3/uL (1.80-7.70); Neutrophils % (A) 58.3 %
[2021-12-18 11:22] LABS: Immature Platelet Fraction 2.6 % (1.1-6.1)
[2021-12-18] MEDS ORDERED: DEXTROSE 50% SYRINGE 50 ML IVP PRN ×2 (17:52)
--- NOTE | 2021-12-18 18:18 | P.CONS ---
History of Present Illness - Reason for Consult Consult date: 12/18/21 - History of Present Illness Mrs. Smith is a pleasant 65-year-old female we were asked to see in consult 12/06/21 at [facility]. Pt had been experiencing B symptoms and was pancytopenic. Bone marrow biopsy and aspirate with Dr. Parisi, 12/10/21. 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 Patient is currently admitted for induction chemotherapy, 7+3 regimen. She has also been started on Decadron 10 mg IV Q24H. [facility] has been consulted for management of her blood sugars. Consult was placed verbally by Jossy Olsen INJURY/SAFETY HAZARD ASSESSMENT with Oncology to Dr. Lipscomb. Patient denies headache, lower extremity edema, nausea vomiting, fever or chills, cough, chest pain, shortness of breath, palpitations, changes in urination or bowel habits. No changes in appetite or weight. She denies any dizziness, numbness/weakness/tingling of extremities. Her most recent A1c in 12/06/2021 was 6.3. She controls her diabetes mellitus with diet and Metformin only at home. Pertinent positives and negatives as discussed in HPI, a complete review of systems was performed and all other systems are negative. General: non toxic, no distress, appears at stated age Derm: warm, dry Head: atraumatic, normocephalic, symmetric Eyes: EOMI, no lid lag, anicteric sclera Mouth: no lip lesion, mucus membranes moist Cardiovascular: S1S2 reg, no murmur, positive posterior tibial pulse bilateral Lungs: CTA bilateral, no rhonchi, no rales , no accessory muscle use Abdominal: soft, nontender to palpation, no guarding, no appreciable organomegaly Ext: no gross muscle atrophy, no edema, no contractures Neuro: CN II-XI grossly intact, no focal neuro deficits Psych: Alert, oriented, appropriate affect #Diabetes mellitus with hyperglycemia #Steroid-induced hyperglycemia #Hypertension #Obesity #Pancytopenia with history of AML Patient will be started on a low-dose sliding scale. Accu-Cheks will be ordered before meals at bedtime. Hypoglycemic precautions were replaced. Patient is currently on verapamil 120 mg by mouth at bedtime. Vital signs be monitored and medication adjusted if necessary. Patient would benefit from a structured weight loss program. Management as per hematology/oncology. Transfuse PRBCs if hemoglobin less than 7. Transfuse platelets if less than 10. DVT prophylaxis: SCDs Discussed with: Patient Anticipated discharge: Depending on clinical course Anticipated discharge place: Home A total of 25 minutes was spent on the care of this complex patient more than 50% of the time was spent in counseling and care coordination. Past Medical History Past Medical History: Cancer (AML 12/10/21), Diabetes Mellitus, GERD/Reflux, Hypertension Additional Past Medical History / Comment(s): heart palpatations, neuropathy salvador feet, irregular bowel movements, benign nodules in lungs since about 2017, uterine fibroids, gastric ulcer, enlarged heart, uti's, states everything tastes salty since 2-3 weeks ago. History of Any Multi-Drug Resistant Organisms: None Reported Past Surgical History: Section, Cholecystectomy, Hernia Repair, Orthopedic Surgery Additional Past Surgical History / Comment(s): surgery for fx nose, tailbone cyst removed, left oophorectomy, partial rt oophorectomy, right shoulder surgery, hernia repair during gallbladder surgery, uterine fibroids removed Past Anesthesia/Blood Transfusion Reactions: Previous Problems w/ Anesthesia, Motion Sickness, Postoperative Nausea & Vomiting (PONV) Additional Past Anesthesia/Blood Transfusion Reaction / Comm: "very hard coming out of anesthesia" Past Psychological History: No Psychological Hx Reported Smoking Status: Never smoker Past Alcohol Use History: None Reported, Rare Past Drug Use History: None Reported - Past Family History Father Family Medical History: Congestive Heart Failure (CHF) Additional Family Medical History / Comment(s): at age 83, possibly from heart issues- unsure. Mother Family Medical History: Deep Vein Thrombosis (DVT) Additional Family Medical History / Comment(s): deseased at age 77 from cva Medications and Allergies Home Medications Medication Instructions Recorded Confirmed Type Enola-3 Fatty Acids/Fish Oil [Fish 1 cap PO DAILY 01/30/18 12/16/21 History Oil 1,000 mg Softgel] Verapamil HCl [Verelan Pm] 100 mg PO HS 01/30/18 12/16/21 History metFORMIN HCL [Glucophage] 1,000 mg PO DAILY 01/30/18 12/16/21 History Fluconazole [Diflucan] 100 mg PO DAILY 12/16/21 12/16/21 History Allergies Allergy/AdvReac Type Severity Reaction Status Date / Time hydrocodone [From Vicodin] AdvReac Nausea & Verified 11/09/22 11:54 Vomiting & Diarrhea latex AdvReac Itching Verified 12/16/21 11:54 Physical Exam Vitals: Vital Signs Temp Pulse Resp BP Pulse Ox 12/18/21 16:09 97.8 F 75 16 133/77 100 12/18/21 12:15 98.1 F 70 16 138/81 99 12/18/21 08:15 98.6 F 70 16 129/77 100 12/18/21 04:30 97.6 F 74 16 110/72 99 12/18/21 00:00 98 F 72 16 123/73 97 12/17/21 20:00 97.6 F 75 134/84 98 Intake and Output 12/18/21 12/18/21 12/18/21 06:59 14:59 22:59 Intake Total 6265 014 6525 Balance 0246 900 9179 Intake: Intake, IV Titration 1686 1458 Amount Cytarabine/Pf 320 mg In 286 258 Sodium Chloride 0.9% 500 ml 500 ml @ 21.5 mls/hr IV Q24H [facility] Rx#:[id number] IDArubicin HCL 20 mg 150 IDArubicin HCL 5 mg In Empty Syringe 1 syr @ 150 mls/hr IV Q24H [facility] Rx#: [id number] Ondansetron 16 mg In 50 Sodium Chloride 0.9% 50 ml @ 232 mls/hr IVPB Q24H [facility] Rx#:[id number] Sodium Chloride 0.9% 1, 1200 1200 000 ml @ 100 mls/hr IV . Q10H [facility] Rx#:[id number] Oral 360 Other: Weight 100.9 kg Results CBC & Chem 7: 12/18/21 07:14 12/18/21 07:14 Labs: Abnormal Lab Results - Last 24 Hours (Table) 12/18/21 12/18/21 Range/Units 07:14 07:14 WBC 0.48 L* (4.50-10.00) X 10*3/uL RBC 2.50 L (4.10-5.20) X 10*6/uL Hgb 7.7 L (12.0-15.0) g/dL Hct 24.0 L (37.2-46.3) % RDW 15.3 H (11.5-14.5) % Plt Count 54 L (140-440) X 10*3/uL Plt Count Comment DECREASED A MPV 8.7 L (9.5-12.2) fL Neutrophils # 0.28 L* (1.80-7.70) X 10*3/uL Lymphocytes # 0.18 L (0.90-5.00) X 10*3/uL Monocytes # 0.02 L (0.20-1.00) X 10*3/uL Eosinophils # 0 L (0.04-0.35) X 10*3/uL Creatinine 0.5 L (0.6-1.5) mg/dL BUN/Creatinine Ratio 32.69 H (12.00-20.00) Ratio Glucose 183 H (70-110) mg/dL Albumin/Globulin Ratio 1.34 L (1.60-3.17) g/dL
[2021-12-18 20:27] LABS: Glucose,Whole Blood 172 mg/dL (70-110)
[2021-12-18] MEDS: INSULIN ASPART (NovoLOG) 100 UNIT/ML VIAL SQ SCH (21:44)
[2021-12-18] MEDS: VERAPAMIL SR 120 MG TABLET.ER PO SCH (21:45)
[2021-12-18] MEDS: OLANZapine 2.5 MG TAB PO SCH (21:45)
[2021-12-18] MEDS: ONDANSETRON 16 MG in SODIUM CHLORIDE 0.9% 50 ML IVPB SCH (23:35)
[2021-12-18] MEDS: FAMOTIDINE 20 MG/2 ML VIAL IVP SCH (23:35)
[2021-12-18] MEDS: DEXAMETHASONE SOD PHOSPHATE 10 MG/ML 1 ML VIAL IVP SCH (23:35)
[2021-12-18] MEDS: IDArubicin HCL 20 MG, IDArubicin HCL 5 MG in EMPTY SYRINGE 1 SYR IV SCH ×2 (23:55)
[2021-12-18] MEDS: CYTARABINE IV SCH (23:55)
[2021-12-18] MEDS: SODIUM CHLORIDE 0.9% IV SCH (23:55)
[2021-12-19] MEDS: SALT AND SODA MOUTHWASH 1,000 ML PO SCH ×4 (06:23→19:32)
[2021-12-19 07:16] LABS: Glucose,Whole Blood 171 mg/dL (70-110)
[2021-12-19] MEDS: metFORMIN 500 MG TAB PO SCH (08:13)
[2021-12-19] MEDS: FLUCONAZOLE 100 MG TAB PO SCH (08:13)
[2021-12-19] MEDS: INSULIN ASPART (NovoLOG) 100 UNIT/ML VIAL SQ SCH ×4 (08:13→20:36)
[2021-12-19] MEDS: INSULIN DETEMIR (LEVEMIR) 100 UNIT/ML SYR SQ SCH (08:14)
[2021-12-19] MEDS: SODIUM CHLORIDE 0.9% 1,000 ML IV SCH ×2 (10:32→20:10)
[2021-12-19 11:08] LABS: Glucose,Whole Blood 216 mg/dL (70-110)
[2021-12-19 11:45] LABS: African American GFR (CKD) 118.5 (60.0-200.0); Albumin 3.8 g/dL (3.8-4.9); Albumin/Globulin Ratio 1.27 (1.60-3.17); Anion Gap 10.1 mmol/L (10.00-18.00); BUN/Creat Ratio 32.4 Ratio (12.00-20.00); Blood Urea Nitrogen 16.2 mg/dL (9.0-27.0); Calcium 8.9 mg/dL (8.7-10.3); Carbon Dioxide 23.9 mmol/L (20.0-27.5); Non-African American GFR(CKD) 102.3 (60.0-200.0); Phosphorus 3.5 mg/dL (2.4-5.1); Potassium 4.2 mmol/L (3.5-5.5); Total Bilirubin 0.5 mg/dL (0.30-1.20); Total Protein 6.8 g/dL (6.2-8.2); Uric Acid 3.8 mg/dL (2.9-7.7)
[2021-12-19 11:59] LABS: Basophils # (A) 0 X 10*3/uL (0.00-0.10); Basophils % (A) 0 %; Eosinophils # (A) 0 X 10*3/uL (0.04-0.35); Eosinophils % (A) 0 %; HCT 24.4 % (37.2-46.3); HGB 7.9 g/dL (12.0-15.0); Immature Grans, Automated 1.5 %; Lymphocytes # (A) 0.16 X 10*3/uL (0.90-5.00); Lymphocytes % (A) 24.2 %; MCH 30.9 pg (27.0-32.0); MCHC 32.4 g/dL (32.0-37.0); MCV 95.3 fL (80.0-97.0); Mean Platelet Volume 10.6 fL (9.5-12.2); Monocytes # (A) 0.01 X 10*3/uL (0.20-1.00); Monocytes % (A) 1.5 %; NRBC Per 100 WBC 0 /100 WBCS (0.0-0.0); Neutrophils # (A) 0.48 X 10*3/uL (1.80-7.70); Neutrophils % (A) 72.8 %; Platelet Count 54 X 10*3/uL (140-440); RBC 2.56 X 10*6/uL (4.10-5.20); RDW 15.4 % (11.5-14.5); WBC 0.66 X 10*3/uL (4.50-10.00)
[2021-12-19 12:00] LABS: Immature Platelet Fraction 2.2 % (1.1-6.1)
--- NOTE | 2021-12-19 12:55 | P.PN ---
Subjective Progress Note Date: 12/19/21 Mrs. Smith is a pleasant 65-year-old female we were asked to see in consult 12/06/21 at [facility]. Pt had been experiencing B symptoms and was pancytopenic. Bone marrow biopsy and aspirate with Dr. Parisi, 12/10/21. 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 Patient is currently admitted for induction chemotherapy, 7+3 regimen. She has also been started on Decadron 10 mg IV Q24H. [facility] [place] [facility] has been consulted for management of her blood sugars. Consult was placed verbally by Jossy Olsen INSTRUCTOR OF EDUCATION with Oncology to Dr. Lipscomb. Her most recent A1c in 12/06/2021 was 6.3. She controls her diabetes mellitus with diet and Metformin only at home. Patient was seen and examined. No acute events overnight. She has no complaints today. General: non toxic, no distress, appears at stated age Derm: warm, dry Head: atraumatic, normocephalic, symmetric Eyes: EOMI, no lid lag, anicteric sclera Mouth: no lip lesion, mucus membranes moist Cardiovascular: good distal perfusion to the extremities Lungs: no accessory muscle use Ext: no gross muscle atrophy, no edema, no contractures Neuro: no focal neuro deficits Psych: Alert, oriented, appropriate affect #Diabetes mellitus with hyperglycemia #Steroid-induced hyperglycemia #Hypertension #Obesity #Pancytopenia with history of AML Patient will be started on a low-dose sliding scale. Add Levemir 10 units daily. Accu-Cheks will be ordered before meals at bedtime. Hypoglycemic precautions were replaced. Patient is currently on verapamil 120 mg by mouth at bedtime. Vital signs be monitored and medication adjusted if necessary. Patient would benefit from a structured weight loss program. Management as per hematology/oncology. Transfuse PRBCs if hemoglobin less than 7. Transfuse platelets if less than 10. DVT prophylaxis: SCDs Discussed with: Patient Anticipated discharge: Depending on clinical course Anticipated discharge place: Home Objective - Vital Signs Vital signs: Vital Signs Temp 97.9 F 12/19/21 11:41 Pulse 68 12/19/21 11:41 Resp 18 12/19/21 11:41 BP 126/75 12/19/21 11:41 Pulse Ox 100 12/19/21 11:41 FiO2 Intake & Output 12/18/21 12/19/21 12/19/21 18:59 06:59 18:59 Intake Total 1818 540 Balance 1818 540 Weight 115 kg Intake: Intake, IV Titration 1458 Amount Cytarabine/Pf 320 mg In 258 Sodium Chloride 0.9% 500 ml 500 ml @ 21.5 mls/hr IV Q24H [facility] Rx#:[id number] Sodium Chloride 0.9% 1, 1200 000 ml @ 100 mls/hr IV . Q10H [facility] Rx#:[id number] Oral 360 540 Other: Voiding Method Toilet # Voids 3 3 - Labs CBC & Chem 7: 12/19/21 06:59 12/19/21 06:59 Labs: Abnormal Lab Results - Last 24 Hours (Table) 12/18/21 12/19/21 12/19/21 Range/Units 20:26 06:59 06:59 WBC 0.66 L* (4.50-10.00) X 10*3/uL RBC 2.56 L (4.10-5.20) X 10*6/uL Hgb 7.9 L (12.0-15.0) g/dL Hct 24.4 L (37.2-46.3) % RDW 15.4 H (11.5-14.5) % Plt Count 54 L (140-440) X 10*3/uL Plt Count Comment A Neutrophils # 0.48 L* (1.80-7.70) X 10*3/uL Lymphocytes # 0.16 L (0.90-5.00) X 10*3/uL Monocytes # 0.01 L (0.20-1.00) X 10*3/uL Eosinophils # 0 L (0.04-0.35) X 10*3/uL Creatinine 0.5 L (0.6-1.5) mg/dL BUN/Creatinine Ratio 32.40 H (12.00-20.00) Ratio Glucose 163 H (70-110) mg/dL POC Glucose (mg/dL) 172 H (70-110) mg/dL Albumin/Globulin Ratio 1.27 L (1.60-3.17) g/dL 12/19/21 12/19/21 Range/Units 07:14 11:07 WBC (4.50-10.00) X 10*3/uL RBC (4.10-5.20) X 10*6/uL Hgb (12.0-15.0) g/dL Hct (37.2-46.3) % RDW (11.5-14.5) % Plt Count (140-440) X 10*3/uL Plt Count Comment Neutrophils # (1.80-7.70) X 10*3/uL Lymphocytes # (0.90-5.00) X 10*3/uL Monocytes # (0.20-1.00) X 10*3/uL Eosinophils # (0.04-0.35) X 10*3/uL Creatinine (0.6-1.5) mg/dL BUN/Creatinine Ratio (12.00-20.00) Ratio Glucose (70-110) mg/dL POC Glucose (mg/dL) 171 H 216 H (70-110) mg/dL Albumin/Globulin Ratio (1.60-3.17) g/dL
--- NOTE | 2021-12-19 16:13 | P.PN ---
Subjective Progress Note Date: 12/19/21 Principal diagnosis: AML -No acute events overnight -Ms. Smith notes having mild constipation, which is not unusual for her. Her last bowel movement was 3 days ago -She denies any nausea, vomiting, diarrhea, fevers, or chills -She is eating and drinking without any complications Objective - Vital Signs Vital signs: Vital Signs Temp 98.3 F 12/19/21 15:45 Pulse 63 12/19/21 15:45 Resp 16 12/19/21 15:45 BP 123/78 12/19/21 15:45 Pulse Ox 100 12/19/21 15:45 FiO2 Intake & Output 12/18/21 12/19/21 12/19/21 18:59 06:59 18:59 Intake Total 1818 540 Balance 1818 540 Weight 115 kg Intake: Intake, IV Titration 1458 Amount Cytarabine/Pf 320 mg In 258 Sodium Chloride 0.9% 500 ml 500 ml @ 21.5 mls/hr IV Q24H [facility] Rx#:[id number] Sodium Chloride 0.9% 1, 1200 000 ml @ 100 mls/hr IV . Q10H [facility] Rx#:[id number] Oral 360 540 Other: Voiding Method Toilet # Voids 3 3 - Constitutional General appearance: Present: cooperative, no acute distress, obese - EENT EENT Comment(s): Pale mucous membranes with no mucositis Eyes: Present: EOMI ENT: Absent: pharyngeal erythema, thrush - Respiratory Respiratory: bilateral: CTA, negative: dullness, rales, rhonchi, wheezing - Cardiovascular Rhythm: regular Heart sounds: normal: S1, S2 - Gastrointestinal General gastrointestinal: Present: normal bowel sounds, soft. Absent: distended, tenderness - Integumentary Integumentary: Absent: rash - Neurologic Neurologic: Present: CNII-XII intact - Labs CBC & Chem 7: 12/19/21 06:59 12/19/21 06:59 Labs: Abnormal Lab Results - Last 24 Hours (Table) 12/18/21 12/19/21 12/19/21 Range/Units 20:26 06:59 06:59 WBC 0.66 L* (4.50-10.00) X 10*3/uL RBC 2.56 L (4.10-5.20) X 10*6/uL Hgb 7.9 L (12.0-15.0) g/dL Hct 24.4 L (37.2-46.3) % RDW 15.4 H (11.5-14.5) % Plt Count 54 L (140-440) X 10*3/uL Plt Count Comment A Neutrophils # 0.48 L* (1.80-7.70) X 10*3/uL Lymphocytes # 0.16 L (0.90-5.00) X 10*3/uL Monocytes # 0.01 L (0.20-1.00) X 10*3/uL Eosinophils # 0 L (0.04-0.35) X 10*3/uL Creatinine 0.5 L (0.6-1.5) mg/dL BUN/Creatinine Ratio 32.40 H (12.00-20.00) Ratio Glucose 163 H (70-110) mg/dL POC Glucose (mg/dL) 172 H (70-110) mg/dL Albumin/Globulin Ratio 1.27 L (1.60-3.17) g/dL 12/19/21 12/19/21 Range/Units 07:14 11:07 WBC (4.50-10.00) X 10*3/uL RBC (4.10-5.20) X 10*6/uL Hgb (12.0-15.0) g/dL Hct (37.2-46.3) % RDW (11.5-14.5) % Plt Count (140-440) X 10*3/uL Plt Count Comment Neutrophils # (1.80-7.70) X 10*3/uL Lymphocytes # (0.90-5.00) X 10*3/uL Monocytes # (0.20-1.00) X 10*3/uL Eosinophils # (0.04-0.35) X 10*3/uL Creatinine (0.6-1.5) mg/dL BUN/Creatinine Ratio (12.00-20.00) Ratio Glucose (70-110) mg/dL POC Glucose (mg/dL) 171 H 216 H (70-110) mg/dL Albumin/Globulin Ratio (1.60-3.17) g/dL Assessment and Plan Assessment: Ms. Smith is a 65-year-old woman with a past medical history significant for diabetes mellitus type 2 who presents for 7+3 induction chemotherapy for newly diagnosed AML (1) Acute myeloid leukemia Current Visit: Yes Status: Acute Priority: High Code(s): C92.00 - ACUTE MYELOBLASTIC LEUKEMIA, NOT HAVING ACHIEVED REMISSION SNOMED Code(s): 22987759 (2) DM II (diabetes mellitus, type II), controlled Current Visit: No Status: Chronic Priority: Low Code(s): E11.9 - TYPE 2 DIABETES MELLITUS WITHOUT COMPLICATIONS SNOMED Code(s): 38516675 Plan: #AML -She is currently day 4 of induction chemotherapy, having completed idarubicin yesterday -She is tolerating treatment well without complications to date -Continue with IV cytarabine and scheduled anti-emetics -She is currently not having any evidence of tumor lysis syndrome and not requiring transfusions -Transfuse for hemoglobin less than 7; transfuse for platelets less than or equal to 10 or bleeding #DM TII -Currently has steroid-induced hyperglycemia -Levemir 10 units daily added to low-dose insulin sliding scale per internal medicine team, appreciate their assistance
[2021-12-19 17:18] LABS: Glucose,Whole Blood 132 mg/dL (70-110)
[2021-12-19] MEDS ORDERED: polyethylene glycoL 3350 17 GM POWD.PACK PO STA (19:44)
[2021-12-19 20:14] LABS: Glucose,Whole Blood 204 mg/dL (70-110)
[2021-12-19] MEDS: OLANZapine 2.5 MG TAB PO SCH (20:37)
[2021-12-19] MEDS: VERAPAMIL SR 120 MG TABLET.ER PO SCH (20:37)
[2021-12-19] MEDS: DEXAMETHASONE SOD PHOSPHATE 10 MG/ML 1 ML VIAL IVP SCH (23:51)
[2021-12-19] MEDS: FAMOTIDINE 20 MG/2 ML VIAL IVP SCH (23:52)
[2021-12-19] MEDS: ONDANSETRON 16 MG in SODIUM CHLORIDE 0.9% 50 ML IVPB SCH (23:52)
[2021-12-20] MEDS: SODIUM CHLORIDE 0.9% IV SCH (00:08)
[2021-12-20] MEDS: CYTARABINE IV SCH (00:08)
[2021-12-20] MEDS: SALT AND SODA MOUTHWASH 1,000 ML PO SCH ×5 (00:51→20:38)
[2021-12-20] MEDS: SODIUM CHLORIDE 0.9% 1,000 ML IV SCH ×2 (05:24→14:52)
[2021-12-20 07:11] LABS: Glucose,Whole Blood 173 mg/dL (70-110)
[2021-12-20] MEDS: INSULIN DETEMIR (LEVEMIR) 100 UNIT/ML SYR SQ SCH (08:20)
[2021-12-20] MEDS: INSULIN ASPART (NovoLOG) 100 UNIT/ML VIAL SQ SCH ×4 (08:20→20:40)
[2021-12-20] MEDS: FLUCONAZOLE 100 MG TAB PO SCH (08:20)
[2021-12-20] MEDS: metFORMIN 500 MG TAB PO SCH (08:20)
--- NOTE | 2021-12-20 10:45 | P.PN ---
Subjective Progress Note Date: 12/20/21 Mrs. Smith is a pleasant 65-year-old female we were asked to see in consult 12/06/21 at [facility]. Pt had been experiencing B symptoms and was pancytopenic. Bone marrow biopsy and aspirate with Dr. Parisi, 12/10/21. 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 Patient is currently admitted for induction chemotherapy, 7+3 regimen. She has also been started on Decadron 10 mg IV Q24H. [facility] has been consulted for management of her blood sugars. Consult was placed verbally by Jossy Olsen [employer] with Oncology to Dr. Lipscomb. Her most recent A1c in 12/06/2021 was 6.3. She controls her diabetes mellitus with diet and Metformin only at home. Patient was seen and examined. No acute events overnight. She reports constipation. Last bowel movement on . Passing gas. BG ranging in the 100-200s. General: non toxic, no distress, appears at stated age Derm: warm, dry Head: atraumatic, normocephalic, symmetric Eyes: EOMI, no lid lag, anicteric sclera Mouth: no lip lesion, mucus membranes moist Cardiovascular: good distal perfusion to the extremities Lungs: no accessory muscle use Ext: no gross muscle atrophy, no edema, no contractures Neuro: no focal neuro deficits Psych: Alert, oriented, appropriate affect #Diabetes mellitus with hyperglycemia #Steroid-induced hyperglycemia #Constipation #Hypertension #Obesity #Pancytopenia with history of AML Increase insulin to medium-dose sliding scale. Continue Levemir 10 units daily. Accu-Cheks will be ordered before meals at bedtime. Hypoglycemic precautions were replaced. Miralax daily. Patient is currently on verapamil 120 mg by mouth at bedtime. Vital signs be monitored and medication adjusted if necessary. Patient would benefit from a structured weight loss program. Management as per hematology/oncology. Transfuse PRBCs if hemoglobin less than 7. Transfuse platelets if less than 10. DVT prophylaxis: SCDs Discussed with: Patient Anticipated discharge: Depending on clinical course Anticipated discharge place: Home Objective - Vital Signs Vital signs: Vital Signs Temp 97.9 F 12/20/21 07:48 Pulse 61 12/20/21 07:48 Resp 17 12/20/21 07:48 BP 144/82 12/20/21 07:48 Pulse Ox 100 12/20/21 07:48 FiO2 Intake & Output 12/19/21 12/20/21 12/20/21 18:59 06:59 18:59 Intake Total 1458 1179 Balance 1458 1179 Weight 111.6 kg Intake: Intake, IV Titration 1458 1179 Amount Cytarabine/Pf 320 mg In 258 129 Sodium Chloride 0.9% 500 ml 500 ml @ 21.5 mls/hr IV Q24H [facility] Rx#:[id number] Ondansetron 16 mg In 50 Sodium Chloride 0.9% 50 ml @ 232 mls/hr IVPB Q24H [facility] Rx#:[id number] Sodium Chloride 0.9% 1, 1200 1000 000 ml @ 100 mls/hr IV . Q10H [facility] Rx#:[id number] Other: Voiding Method Toilet # Voids 3 3 - Labs CBC & Chem 7: 12/19/21 06:59 12/19/21 06:59 Labs: Abnormal Lab Results - Last 24 Hours (Table) 12/19/21 12/19/21 12/19/21 Range/Units 06:59 06:59 11:07 WBC 0.66 L* (4.50-10.00) X 10*3/uL RBC 2.56 L (4.10-5.20) X 10*6/uL Hgb 7.9 L (12.0-15.0) g/dL Hct 24.4 L (37.2-46.3) % RDW 15.4 H (11.5-14.5) % Plt Count 54 L (140-440) X 10*3/uL Plt Count Comment A Neutrophils # 0.48 L* (1.80-7.70) X 10*3/uL Lymphocytes # 0.16 L (0.90-5.00) X 10*3/uL Monocytes # 0.01 L (0.20-1.00) X 10*3/uL Eosinophils # 0 L (0.04-0.35) X 10*3/uL Creatinine 0.5 L (0.6-1.5) mg/dL BUN/Creatinine Ratio 32.40 H (12.00-20.00) Ratio Glucose 163 H (70-110) mg/dL POC Glucose (mg/dL) 216 H (70-110) mg/dL Albumin/Globulin Ratio 1.27 L (1.60-3.17) g/dL 12/19/21 12/19/21 12/20/21 Range/Units 17:16 20:13 07:10 WBC (4.50-10.00) X 10*3/uL RBC (4.10-5.20) X 10*6/uL Hgb (12.0-15.0) g/dL Hct (37.2-46.3) % RDW (11.5-14.5) % Plt Count (140-440) X 10*3/uL Plt Count Comment Neutrophils # (1.80-7.70) X 10*3/uL Lymphocytes # (0.90-5.00) X 10*3/uL Monocytes # (0.20-1.00) X 10*3/uL Eosinophils # (0.04-0.35) X 10*3/uL Creatinine (0.6-1.5) mg/dL BUN/Creatinine Ratio (12.00-20.00) Ratio Glucose (70-110) mg/dL POC Glucose (mg/dL) 132 H 204 H 173 H (70-110) mg/dL Albumin/Globulin Ratio (1.60-3.17) g/dL
[2021-12-20] MEDS: ACYCLOVIR 200 MG CAP PO SCH ×2 (11:09→20:39)
[2021-12-20] MEDS: CIPROFLOXACIN HCL 500 MG TAB PO SCH ×2 (11:09→20:39)
[2021-12-20 11:11] LABS: Glucose,Whole Blood 242 mg/dL (70-110)
[2021-12-20 11:14] LABS: African American GFR (CKD) 115.5 (60.0-200.0); Albumin 3.7 g/dL (3.8-4.9); Albumin/Globulin Ratio 1.38 (1.60-3.17); Anion Gap 8.9 mmol/L (10.00-18.00); BUN/Creat Ratio 29.94 Ratio (12.00-20.00); Blood Urea Nitrogen 16.2 mg/dL (9.0-27.0); Calcium 8.9 mg/dL (8.7-10.3); Carbon Dioxide 23.5 mmol/L (20.0-27.5); Globulin 2.7 g/dL (1.6-3.3); Non-African American GFR(CKD) 99.7 (60.0-200.0); Phosphorus 3.5 mg/dL (2.4-5.1); Potassium 4.2 mmol/L (3.5-5.5); Total Bilirubin 0.7 mg/dL (0.30-1.20); Total Protein 6.5 g/dL (6.2-8.2); Uric Acid 3.4 mg/dL (2.9-7.7)
[2021-12-20 11:57] LABS: Basophils # (M) 0 X 10*3/uL (0.00-0.10); Eosinophils # (M) 0 X 10*3/uL (0.04-0.35); HCT 23.8 % (37.2-46.3); HGB 7.9 g/dL (12.0-15.0); Lymphocytes # (M) 0.13 X 10*3/uL (0.90-5.00); MCH 30.5 pg (27.0-32.0); MCHC 33.2 g/dL (32.0-37.0); MCV 91.9 fL (80.0-97.0); Mean Platelet Volume 10.8 fL (9.5-12.2); Monocytes # (M) 0.01 X 10*3/uL (0.20-1.00); NRBC Per 100 WBC 0 /100 WBCS (0.0-0.0); Neutrophils # (M) 0.58 X 10*3/uL (2.00-8.90); Neutrophils % (M) 81 %; Platelet Count 53 X 10*3/uL (140-440); RBC 2.59 X 10*6/uL (4.10-5.20); RDW 15.5 % (11.5-14.5); WBC 0.71 X 10*3/uL (4.50-10.00)
--- NOTE | 2021-12-20 13:16 | P.PN ---
Subjective Progress Note Date: 12/20/21 Principal diagnosis: AML -No acute events overnight -Ms. Smith notes still having constipation. She was started on MiraLAX -She denies any nausea, vomiting, diarrhea, fevers, or chills -She is eating and drinking without any complications Objective - Vital Signs Vital signs: Vital Signs Temp 98.2 F 12/20/21 11:52 Pulse 65 12/20/21 11:52 Resp 17 12/20/21 11:52 BP 144/82 12/20/21 11:52 Pulse Ox 99 12/20/21 11:52 FiO2 Intake & Output 12/19/21 12/20/21 12/20/21 18:59 06:59 18:59 Intake Total 1458 1179 Balance 1458 1179 Weight 111.6 kg Intake: Intake, IV Titration 1458 1179 Amount Cytarabine/Pf 320 mg In 258 129 Sodium Chloride 0.9% 500 ml 500 ml @ 21.5 mls/hr IV Q24H [facility] Rx#:[id number] Ondansetron 16 mg In 50 Sodium Chloride 0.9% 50 ml @ 232 mls/hr IVPB Q24H [facility] Rx#:[id number] Sodium Chloride 0.9% 1, 1200 1000 000 ml @ 100 mls/hr IV . Q10H [facility] Rx#:[id number] Other: Voiding Method Toilet # Voids 3 3 - Constitutional General appearance: Present: cooperative, no acute distress, obese - EENT Eyes: Present: EOMI - Neck Neck: Absent: lymphadenopathy - Respiratory Respiratory: bilateral: CTA - Cardiovascular Rhythm: regular Heart sounds: normal: S1, S2 - Peripheral edema ankle Peripheral Edema: bilateral: None - Gastrointestinal General gastrointestinal: Present: normal bowel sounds, soft. Absent: tenderness - Integumentary Integumentary: Absent: rash - Neurologic Neurologic: Present: CNII-XII intact - Labs CBC & Chem 7: 12/20/21 06:32 12/20/21 06:32 Labs: Abnormal Lab Results - Last 24 Hours (Table) 12/19/21 12/19/21 12/20/21 Range/Units 17:16 20:13 06:32 WBC (4.50-10.00) X 10*3/uL RBC (4.10-5.20) X 10*6/uL Hgb (12.0-15.0) g/dL Hct (37.2-46.3) % RDW (11.5-14.5) % Plt Count (140-440) X 10*3/uL Plt Count Comment Neutrophils # (Manual) (2.00-8.90) X 10*3/uL Lymphocytes # (Manual) (0.90-5.00) X 10*3/uL Monocytes # (Manual) (0.20-1.00) X 10*3/uL Eosinophils # (Manual) (0.04-0.35) X 10*3/uL Anion Gap 8.90 L (10.00-18.00) mmol/L Creatinine 0.5 L (0.6-1.5) mg/dL BUN/Creatinine Ratio 29.94 H (12.00-20.00) Ratio Glucose 170 H (70-110) mg/dL POC Glucose (mg/dL) 132 H 204 H (70-110) mg/dL Albumin 3.7 L (3.8-4.9) g/dL Albumin/Globulin Ratio 1.38 L (1.60-3.17) g/dL 12/20/21 12/20/21 12/20/21 Range/Units 06:32 07:10 11:10 WBC 0.71 L* (4.50-10.00) X 10*3/uL RBC 2.59 L (4.10-5.20) X 10*6/uL Hgb 7.9 L (12.0-15.0) g/dL Hct 23.8 L (37.2-46.3) % RDW 15.5 H (11.5-14.5) % Plt Count 53 L (140-440) X 10*3/uL Plt Count Comment A Neutrophils # (Manual) 0.58 L (2.00-8.90) X 10*3/uL Lymphocytes # (Manual) 0.13 L (0.90-5.00) X 10*3/uL Monocytes # (Manual) 0.01 L (0.20-1.00) X 10*3/uL Eosinophils # (Manual) 0 L (0.04-0.35) X 10*3/uL Anion Gap (10.00-18.00) mmol/L Creatinine (0.6-1.5) mg/dL BUN/Creatinine Ratio (12.00-20.00) Ratio Glucose (70-110) mg/dL POC Glucose (mg/dL) 173 H 242 H (70-110) mg/dL Albumin (3.8-4.9) g/dL Albumin/Globulin Ratio (1.60-3.17) g/dL Assessment and Plan Assessment: Ms. Smith is a 65-year-old woman with a past medical history significant for diabetes mellitus type 2 who presents for 7+3 induction chemotherapy for newly diagnosed AML (1) Acute myeloid leukemia Current Visit: Yes Status: Acute Priority: High Code(s): C92.00 - ACUTE MYELOBLASTIC LEUKEMIA, NOT HAVING ACHIEVED REMISSION SNOMED Code(s): 23766183 (2) DM II (diabetes mellitus, type II), controlled Current Visit: No Status: Chronic Priority: Low Code(s): E11.9 - TYPE 2 DIABETES MELLITUS WITHOUT COMPLICATIONS SNOMED Code(s): 53169828 Plan: #AML -She is currently day 5 of induction chemotherapy, currently receiving continuous cytarabine -She is tolerating treatment well without complications to date -CMP is stable. Hemoglobin and platelet count this morning are stable -Continue with IV cytarabine and scheduled anti-emetics -Added acyclovir and ciprofloxacin in addition to fluconazole for infectious prophylaxis given neutropenia with chemotherapy -Transfuse for hemoglobin less than 7; transfuse for platelets less than or equal to 10 or bleeding #DM TII -Currently has steroid-induced hyperglycemia -Levemir 10 units daily added to low-dose insulin sliding scale per internal medicine team, appreciate their assistance
[2021-12-20 17:07] LABS: Glucose,Whole Blood 124 mg/dL (70-110)
[2021-12-20 19:59] LABS: Glucose,Whole Blood 167 mg/dL (70-110)
[2021-12-20] MEDS: polyethylene glycoL 3350 17 GM POWD.PACK PO SCH (20:39)
[2021-12-20] MEDS: VERAPAMIL SR 120 MG TABLET.ER PO SCH (20:40)
[2021-12-20] MEDS: OLANZapine 2.5 MG TAB PO SCH (20:40)
[2021-12-21] MEDS: DEXAMETHASONE SOD PHOSPHATE 10 MG/ML 1 ML VIAL IVP SCH ×2 (00:28→23:54)
[2021-12-21] MEDS: FAMOTIDINE 20 MG/2 ML VIAL IVP SCH ×2 (00:28→23:54)
[2021-12-21] MEDS: SALT AND SODA MOUTHWASH 1,000 ML PO SCH ×6 (00:28→23:55)
[2021-12-21] MEDS: ONDANSETRON 16 MG in SODIUM CHLORIDE 0.9% 50 ML IVPB SCH ×2 (00:29→23:54)
[2021-12-21] MEDS: CYTARABINE IV SCH (00:51)
[2021-12-21] MEDS: SODIUM CHLORIDE 0.9% IV SCH (00:51)
[2021-12-21] MEDS: SODIUM CHLORIDE 0.9% 1,000 ML IV SCH ×3 (00:59→20:44)
[2021-12-21 07:35] LABS: Glucose,Whole Blood 167 mg/dL (70-110)
[2021-12-21] MEDS: INSULIN ASPART (NovoLOG) 100 UNIT/ML VIAL SQ SCH ×4 (08:40→20:45)
[2021-12-21] MEDS: metFORMIN 500 MG TAB PO SCH (08:41)
[2021-12-21] MEDS: INSULIN DETEMIR (LEVEMIR) 100 UNIT/ML SYR SQ SCH (08:41)
[2021-12-21] MEDS: ACYCLOVIR 200 MG CAP PO SCH ×2 (08:41→20:44)
[2021-12-21] MEDS: CIPROFLOXACIN HCL 500 MG TAB PO SCH ×2 (08:42→20:44)
[2021-12-21] MEDS: FLUCONAZOLE 100 MG TAB PO SCH (08:42)
[2021-12-21 09:45] LABS: African American GFR (CKD) 118.5 (60.0-200.0); Albumin 3.8 g/dL (3.8-4.9); Albumin/Globulin Ratio 1.41 (1.60-3.17); Anion Gap 10.8 mmol/L (10.00-18.00); BUN/Creat Ratio 35.8 Ratio (12.00-20.00); Blood Urea Nitrogen 17.9 mg/dL (9.0-27.0); Calcium 8.9 mg/dL (8.7-10.3); Carbon Dioxide 22.2 mmol/L (20.0-27.5); Globulin 2.7 g/dL (1.6-3.3); Non-African American GFR(CKD) 102.3 (60.0-200.0); Phosphorus 3.6 mg/dL (2.4-5.1); Potassium 4.1 mmol/L (3.5-5.5); Total Bilirubin 0.8 mg/dL (0.30-1.20); Total Protein 6.5 g/dL (6.2-8.2); Uric Acid 3.2 mg/dL (2.9-7.7)
[2021-12-21 10:54] LABS: Basophils # (A) 0 X 10*3/uL (0.00-0.10); Basophils % (A) 0 %; Eosinophils # (A) 0 X 10*3/uL (0.04-0.35); Eosinophils % (A) 0 %; Immature Grans, Automated 1.4 %; Lymphocytes # (A) 0.15 X 10*3/uL (0.90-5.00); Lymphocytes % (A) 21.4 %; Monocytes # (A) 0 X 10*3/uL (0.20-1.00); Monocytes % (A) 0 %; NRBC Per 100 WBC 0 /100 WBCS (0.0-0.0); Neutrophils # (A) 0.54 X 10*3/uL (1.80-7.70); Neutrophils % (A) 77.2 %
[2021-12-21 10:55] LABS: HCT 23.3 % (37.2-46.3); HGB 7.9 g/dL (12.0-15.0); MCH 30.6 pg (27.0-32.0); MCHC 33.9 g/dL (32.0-37.0); MCV 90.3 fL (80.0-97.0); Mean Platelet Volume 9.8 fL (9.5-12.2); Platelet Count 52 X 10*3/uL (140-440); RBC 2.58 X 10*6/uL (4.10-5.20); RDW 15.2 % (11.5-14.5)
[2021-12-21 10:56] LABS: Immature Platelet Fraction 1.9 % (1.1-6.1)
[2021-12-21 12:01] LABS: Glucose,Whole Blood 181 mg/dL (70-110)
--- NOTE | 2021-12-21 15:23 | P.PN ---
Subjective Progress Note Date: 12/21/21 Hospital course: Patient is a very pleasant 65-year-old female with a past medical history of hypertension, GERD, diabetes mellitus, and AML. She is currently admitted under the hematology/oncology team undergoing induction chemotherapeutic treatment with Cytarabine. We have been consulted for medical management throughout hospitalization. Physical exam: Patient seen and fully evaluated at the bedside this morning. Patient appears to be doing well. She denies having any adverse effects from current chemotherapeutic regimen. Patient denies having any headache, lightheadedness, dizziness, chest pain, palpitations, shortness of breath, cough or congestion, nausea or vomiting, decreased appetite, or any other complaints at this time. Vital signs unremarkable. Morning labs reviewed revealing continued pancytopenia with WBC count of 0.70, hemoglobin 7.9, and platelet count of 52. Neutrophils 0.54. Patient remains neutropenic precautions. Vital signs reviewed and stable. General: Nontoxic, no distress and appears stated age. Derm: Skin warm and dry, normal coloration for ethnicity. Head: Atraumatic, normocephalic and symmetric. Eyes: EOMs intact, no lid lag, and anicteric sclera Mouth: no lip lesions, mucus membranes moist Cardiovascular: regular rate and rhythm with normal S1S2, no murmur, positive posterior tibial pulses bilaterally, and cap refill < 2 seconds. Lungs: Respirations even, regular, and unlabored on room air. Lungs CTA bilaterally, no rhonchi, no rales, no wheezing, and no accessory muscle usage. Abdominal: soft, nontender to palpation, no guarding, no appreciable organomegaly Ext: ROM intact. No gross muscle atrophy, no edema, no contractures Neuro: Speech clear, face symmetrical and CN II-XII grossly intact with no noted focal neuro deficits Psych: Alert and oriented to person, place, time, and situation. Appropriate and pleasant affect. Assessment and Plan of Care: Hyperglycemia and a type II [id number]-[id number] diabetic Steroid-induced hyperglycemia -Continue Glucophage and place patient on glycemic protocol with NovoLog sliding scale. Hypertension -Monitor vital signs and continue daily medication regimen with verapamil. AML Pancytopenia secondary to above. - Patient is undergoing induction chemotherapeutic treatment with Cytarabine, currently on day 6 of 7 -Management per primary admitting hematology/oncology team. -Continue close monitoring of CBC, transfuse as needed for hemoglobin less than 7 and/or platelet count less than 10 -Maintain neutropenic precautions -Continue acyclovir, ciprofloxacin, and Diflucan. Thank you for allowing us to participate in the care of this pleasant patient. Do not hesitate to contact us with questions. Someone can be reached from the [facility] hospitalist group all hours of the day at [phone] or via perfect serve. Attending Note: Maximo Marie NP rendered care for this patient independently, reviewed the findin gs and plan as documented in the note above. I did not physically speak with or examine the patient on this date. Objective - Vital Signs Vital signs: Vital Signs Temp 97.6 F 12/21/21 07:41 Pulse 72 12/21/21 07:41 Resp 16 12/21/21 07:41 BP 126/81 12/21/21 07:41 Pulse Ox 99 12/21/21 07:41 FiO2 Intake & Output 12/20/21 12/21/21 12/21/21 18:59 06:59 18:59 Intake Total 1458 1870 Balance 1458 1870 Weight 111.6 kg Intake: Intake, IV Titration 1458 1370 Amount Cytarabine/Pf 320 mg In 258 120 Sodium Chloride 0.9% 500 ml 500 ml @ 21.5 mls/hr IV Q24H [facility] Rx#:[id number] Ondansetron 16 mg In 50 Sodium Chloride 0.9% 50 ml @ 232 mls/hr IVPB Q24H [facility] Rx#:[id number] Sodium Chloride 0.9% 1, 1200 1200 000 ml @ 100 mls/hr IV . Q10H [facility] Rx#:[id number] Oral 500 Other: Voiding Method Toilet # Voids 4 3 - Labs CBC & Chem 7: 12/23/21 10:22 12/23/21 10:22 Labs: Abnormal Lab Results - Last 24 Hours (Table) 12/20/21 12/20/21 12/20/21 Range/Units 06:32 06:32 11:10 WBC 0.71 L* (4.50-10.00) X 10*3/uL RBC 2.59 L (4.10-5.20) X 10*6/uL Hgb 7.9 L (12.0-15.0) g/dL Hct 23.8 L (37.2-46.3) % RDW 15.5 H (11.5-14.5) % Plt Count 53 L (140-440) X 10*3/uL Plt Count Comment A Neutrophils # (Manual) 0.58 L (2.00-8.90) X 10*3/uL Lymphocytes # (Manual) 0.13 L (0.90-5.00) X 10*3/uL Monocytes # (Manual) 0.01 L (0.20-1.00) X 10*3/uL Eosinophils # (Manual) 0 L (0.04-0.35) X 10*3/uL Anion Gap 8.90 L (10.00-18.00) mmol/L Creatinine 0.5 L (0.6-1.5) mg/dL BUN/Creatinine Ratio 29.94 H (12.00-20.00) Ratio Glucose 170 H (70-110) mg/dL POC Glucose (mg/dL) 242 H (70-110) mg/dL Albumin 3.7 L (3.8-4.9) g/dL Albumin/Globulin Ratio 1.38 L (1.60-3.17) g/dL 12/20/21 12/20/21 12/21/21 Range/Units 17:06 19:58 07:33 WBC (4.50-10.00) X 10*3/uL RBC (4.10-5.20) X 10*6/uL Hgb (12.0-15.0) g/dL Hct (37.2-46.3) % RDW (11.5-14.5) % Plt Count (140-440) X 10*3/uL Plt Count Comment Neutrophils # (Manual) (2.00-8.90) X 10*3/uL Lymphocytes # (Manual) (0.90-5.00) X 10*3/uL Monocytes # (Manual) (0.20-1.00) X 10*3/uL Eosinophils # (Manual) (0.04-0.35) X 10*3/uL Anion Gap (10.00-18.00) mmol/L Creatinine (0.6-1.5) mg/dL BUN/Creatinine Ratio (12.00-20.00) Ratio Glucose (70-110) mg/dL POC Glucose (mg/dL) 124 H 167 H 167 H (70-110) mg/dL Albumin (3.8-4.9) g/dL Albumin/Globulin Ratio (1.60-3.17) g/dL
[2021-12-21 17:35] LABS: Glucose,Whole Blood 133 mg/dL (70-110)
[2021-12-21] MEDS ORDERED: bisacodyL 5 MG TABLET.DR PO PRN (19:06)
[2021-12-21 20:28] LABS: Glucose,Whole Blood 193 mg/dL (70-110)
[2021-12-21] MEDS: polyethylene glycoL 3350 17 GM POWD.PACK PO SCH (20:43)
[2021-12-21] MEDS: VERAPAMIL SR 120 MG TABLET.ER PO SCH (20:44)
[2021-12-21] MEDS: OLANZapine 2.5 MG TAB PO SCH (20:44)
--- NOTE | 2021-12-21 21:33 | P.PN ---
Subjective Progress Note Date: 12/21/21 Principal diagnosis: AML, admit C[facility]I 7+3 induction chemotherapy In follow-up today patient has no c/o on a 14 point ROS. She feels she will have a BM today. She is ambulating, knows she needs to do more. Tolerating oral intake. Objective - Vital Signs Vital signs: Vital Signs Temp 97.6 F 12/21/21 07:41 Pulse 72 12/21/21 07:41 Resp 16 12/21/21 07:41 BP 126/81 12/21/21 07:41 Pulse Ox 99 12/21/21 07:41 FiO2 Intake & Output 12/20/21 12/21/21 12/21/21 18:59 06:59 18:59 Intake Total 1458 1870 Balance 1458 1870 Weight 111.6 kg Intake: Intake, IV Titration 1458 1370 Amount Cytarabine/Pf 320 mg In 258 120 Sodium Chloride 0.9% 500 ml 500 ml @ 21.5 mls/hr IV Q24H [facility] Rx#:[id number] Ondansetron 16 mg In 50 Sodium Chloride 0.9% 50 ml @ 232 mls/hr IVPB Q24H [facility] Rx#:[id number] Sodium Chloride 0.9% 1, 1200 1200 000 ml @ 100 mls/hr IV . Q10H [facility] Rx#:[id number] Oral 500 Other: Voiding Method Toilet Toilet # Voids 4 3 - Constitutional General appearance: Present: cooperative, no acute distress, obese - EENT Eyes: Present: anicteric sclerae, EOMI ENT: Present: hearing grossly normal, normal oropharynx - Respiratory Respiratory: bilateral: CTA - Cardiovascular Rhythm: regular Heart sounds: normal: S1, S2 Abnormal Heart Sounds: Absent: systolic murmur, diastolic murmur, rub, S3 Gallop, S4 Gallop, click, other - Peripheral edema leg Peripheral Edema: bilateral: None - Gastrointestinal General gastrointestinal: Present: normal bowel sounds, soft - Integumentary Integumentary: Present: normal - Neurologic Neurologic: Present: CNII-XII intact - Musculoskeletal Musculoskeletal: Present: strength equal bilaterally - Psychiatric Psychiatric: Present: A&O x's 3, appropriate affect, intact judgment & insight - Labs CBC & Chem 7: 12/21/21 06:06 11/14/22 06:06 Labs: Abnormal Lab Results - Last 24 Hours (Table) 12/20/21 12/20/21 12/20/21 Range/Units 06:32 06:32 11:10 WBC 0.71 L* (4.50-10.00) X 10*3/uL RBC 2.59 L (4.10-5.20) X 10*6/uL Hgb 7.9 L (12.0-15.0) g/dL Hct 23.8 L (37.2-46.3) % RDW 15.5 H (11.5-14.5) % Plt Count 53 L (140-440) X 10*3/uL Plt Count Comment A Neutrophils # (1.80-7.70) X 10*3/uL Neutrophils # (Manual) 0.58 L (2.00-8.90) X 10*3/uL Lymphocytes # (0.90-5.00) X 10*3/uL Lymphocytes # (Manual) 0.13 L (0.90-5.00) X 10*3/uL Monocytes # (0.20-1.00) X 10*3/uL Monocytes # (Manual) 0.01 L (0.20-1.00) X 10*3/uL Eosinophils # (0.04-0.35) X 10*3/uL Eosinophils # (Manual) 0 L (0.04-0.35) X 10*3/uL Anion Gap 8.90 L (10.00-18.00) mmol/L Creatinine 0.5 L (0.6-1.5) mg/dL BUN/Creatinine Ratio 29.94 H (12.00-20.00) Ratio Glucose 170 H (70-110) mg/dL POC Glucose (mg/dL) 242 H (70-110) mg/dL Albumin 3.7 L (3.8-4.9) g/dL Albumin/Globulin Ratio 1.38 L (1.60-3.17) g/dL 12/20/21 12/20/21 12/21/21 Range/Units 17:06 19:58 06:06 WBC (4.50-10.00) X 10*3/uL RBC (4.10-5.20) X 10*6/uL Hgb (12.0-15.0) g/dL Hct (37.2-46.3) % RDW (11.5-14.5) % Plt Count (140-440) X 10*3/uL Plt Count Comment Neutrophils # (1.80-7.70) X 10*3/uL Neutrophils # (Manual) (2.00-8.90) X 10*3/uL Lymphocytes # (0.90-5.00) X 10*3/uL Lymphocytes # (Manual) (0.90-5.00) X 10*3/uL Monocytes # (0.20-1.00) X 10*3/uL Monocytes # (Manual) (0.20-1.00) X 10*3/uL Eosinophils # (0.04-0.35) X 10*3/uL Eosinophils # (Manual) (0.04-0.35) X 10*3/uL Anion Gap (10.00-18.00) mmol/L Creatinine 0.5 L (0.6-1.5) mg/dL BUN/Creatinine Ratio 35.80 H (12.00-20.00) Ratio Glucose 169 H (70-110) mg/dL POC Glucose (mg/dL) 124 H 167 H (70-110) mg/dL Albumin (3.8-4.9) g/dL Albumin/Globulin Ratio 1.41 L (1.60-3.17) g/dL 12/21/21 12/21/21 Range/Units 06:06 07:33 WBC 0.70 L* (4.50-10.00) X 10*3/uL RBC 2.58 L (4.10-5.20) X 10*6/uL Hgb 7.9 L (12.0-15.0) g/dL Hct 23.3 L (37.2-46.3) % RDW 15.2 H (11.5-14.5) % Plt Count 52 L (140-440) X 10*3/uL Plt Count Comment DECREASED A Neutrophils # 0.54 L (1.80-7.70) X 10*3/uL Neutrophils # (Manual) (2.00-8.90) X 10*3/uL Lymphocytes # 0.15 L (0.90-5.00) X 10*3/uL Lymphocytes # (Manual) (0.90-5.00) X 10*3/uL Monocytes # 0 L (0.20-1.00) X 10*3/uL Monocytes # (Manual) (0.20-1.00) X 10*3/uL Eosinophils # 0 L (0.04-0.35) X 10*3/uL Eosinophils # (Manual) (0.04-0.35) X 10*3/uL Anion Gap (10.00-18.00) mmol/L Creatinine (0.6-1.5) mg/dL BUN/Creatinine Ratio (12.00-20.00) Ratio Glucose (70-110) mg/dL POC Glucose (mg/dL) 167 H (70-110) mg/dL Albumin (3.8-4.9) g/dL Albumin/Globulin Ratio (1.60-3.17) g/dL Assessment and Plan (1) Acute myeloid leukemia Current Visit: Yes Status: Acute Priority: High Code(s): C92.00 - ACUTE MYELOBLASTIC LEUKEMIA, NOT HAVING ACHIEVED REMISSION SNOMED Code(s): 22721911 (2) DM II (diabetes mellitus, type II), controlled Current Visit: No Status: Chronic Priority: Low Code(s): E11.9 - TYPE 2 DIABETES MELLITUS WITHOUT COMPLICATIONS SNOMED Code(s): 35530460 (3) HTN (hypertension) Current Visit: Yes Status: Chronic Priority: Low Code(s): I10 - ESSENTIAL (PRIMARY) HYPERTENSION SNOMED Code(s): 80866234 Plan: Admitted for induction chemotherapy 7+3 regimen. Double lumen PICC line insertion. Echo for baseline, LVEF 55%. Supportive medications. Preventative measures. Regular diet-patient encouraged to have things brought from home. [place] fluids. Activity 5 times a day with shoes on. Up in the chair for all meals. Encouraged moving as much as possible. Daily weights. Reviewed labs today, as expected. No G-CSF. Transfuse with irradiated blood products only. Transfuse for hemoglobin less than 7 and a platelet count less than 10,000, unless patient is symptomatic. No transfusions needed today. Daily follow-up. Vital signs Q shift and PRN. DVT prophylaxis with SCDs. GI prophylaxis IM on case for elevated CBG 2/2 steroids, stress. attests: I have seen and examined pt, performed H&P, developed impression and plan of care. Discussed with dictator. Agree with documentation, dictated as a scribe.
[2021-12-22] MEDS: SODIUM CHLORIDE 0.9% IV SCH (00:04)
[2021-12-22] MEDS: CYTARABINE IV SCH (00:04)
[2021-12-22] MEDS: SODIUM CHLORIDE 0.9% 1,000 ML IV SCH ×2 (06:12→16:19)
[2021-12-22] MEDS: SALT AND SODA MOUTHWASH 1,000 ML PO SCH ×4 (06:14→21:15)
[2021-12-22 07:08] LABS: Glucose,Whole Blood 172 mg/dL (70-110)
[2021-12-22] MEDS: INSULIN ASPART (NovoLOG) 100 UNIT/ML VIAL SQ SCH ×4 (08:50→21:13)
[2021-12-22] MEDS: metFORMIN 500 MG TAB PO SCH (08:51)
[2021-12-22] MEDS: ACYCLOVIR 200 MG CAP PO SCH ×2 (08:51→21:13)
[2021-12-22] MEDS: INSULIN DETEMIR (LEVEMIR) 100 UNIT/ML SYR SQ SCH (08:54)
[2021-12-22] MEDS: CIPROFLOXACIN HCL 500 MG TAB PO SCH ×2 (08:55→21:13)
[2021-12-22] MEDS: FLUCONAZOLE 100 MG TAB PO SCH (08:56)
[2021-12-22 09:37] LABS: African American GFR (CKD) 118.5 (60.0-200.0); Albumin 3.6 g/dL (3.8-4.9); Albumin/Globulin Ratio 1.44 (1.60-3.17); BUN/Creat Ratio 39.2 Ratio (12.00-20.00); Blood Urea Nitrogen 19.6 mg/dL (9.0-27.0); Calcium 8.7 mg/dL (8.7-10.3); Globulin 2.5 g/dL (1.6-3.3); Non-African American GFR(CKD) 102.3 (60.0-200.0); Potassium 4.2 mmol/L (3.5-5.5); Total Bilirubin 0.7 mg/dL (0.30-1.20); Total Protein 6.1 g/dL (6.2-8.2)
[2021-12-22 09:38] LABS: HGB 7.2 g/dL (12.0-15.0); MCH 30.9 pg (27.0-32.0); MCHC 32.7 g/dL (32.0-37.0); MCV 94.4 fL (80.0-97.0); NRBC Per 100 WBC 0 /100 WBCS (0.0-0.0); Platelet Count 37 X 10*3/uL (140-440); RBC 2.33 X 10*6/uL (4.10-5.20); RDW 15.3 % (11.5-14.5)
[2021-12-22 10:19] LABS: Basophils # (M) 0 X 10*3/uL (0.00-0.10); Eosinophils # (M) 0 X 10*3/uL (0.04-0.35); Lymphocytes # (M) 0.15 X 10*3/uL (0.90-5.00); Monocytes # (M) 0 X 10*3/uL (0.20-1.00); Neutrophils # (M) 0.28 X 10*3/uL (2.00-8.90); Neutrophils % (M) 66 %; Rouleaux PRESENT
[2021-12-22 11:09] LABS: Glucose,Whole Blood 200 mg/dL (70-110)
[2021-12-22 11:52] LABS: WBC 0.43 X 10*3/uL (4.50-10.00)
--- NOTE | 2021-12-22 12:38 | P.PN ---
Subjective Progress Note Date: 12/22/21 Hospital course: Patient is a very pleasant 65-year-old female with a past medical history of hypertension, GERD, diabetes mellitus, and AML. She is currently admitted under the hematology/oncology team undergoing induction chemotherapeutic treatment with Cytarabine. We have been consulted for medical management throughout hospitalization. Physical exam: Patient seen and fully evaluated at the bedside this morning. Patient appears to be doing well. She continues to deny having any adverse effects from current chemotherapeutic regimen including headache, lightheadedness, dizziness, chest pain, palpitations, shortness of breath, cough or congestion, nausea or vomiting, decreased appetite, or any other complaints at this time. Vital signs unremarkable. Patient reports having a good appetite and eating well. Morning labs reviewed revealing continued pancytopenia with WBC count of 0.43, hemoglobin 7.2, and platelet count of 37. Neutrophils 0.28. Patient remains neutropenic precautions. Vital signs reviewed and stable. General: Nontoxic, no distress and appears stated age. Derm: Skin warm and dry, normal coloration for ethnicity. Head: Atraumatic, normocephalic and symmetric. Eyes: EOMs intact, no lid lag, and anicteric sclera Mouth: no lip lesions, mucus membranes moist Cardiovascular: regular rate and rhythm with normal S1S2, no murmur, positive posterior tibial pulses bilaterally, and cap refill < 2 seconds. Lungs: Respirations even, regular, and unlabored on room air. Lungs CTA bilaterally, no rhonchi, no rales, no wheezing, and no accessory muscle usage. Abdominal: soft, nontender to palpation, no guarding, no appreciable organomegaly Ext: ROM intact. No gross muscle atrophy, no edema, no contractures Neuro: Speech clear, face symmetrical and CN II-XII grossly intact with no noted focal neuro deficits Psych: Alert and oriented to person, place, time, and situation. Appropriate and pleasant affect. Assessment and Plan of Care: Hyperglycemia and a type II ima-erekibd-lteljyiax diabetic Steroid-induced hyperglycemia -Continue Glucophage and place patient on glycemic protocol with NovoLog sliding scale. Hypertension -Monitor vital signs and continue daily medication regimen with verapamil. AML Pancytopenia secondary to above. - Patient is undergoing induction chemotherapeutic treatment with Cytarabine, currently on day 7 of 7 -Management per primary admitting hematology/oncology team. -Continue close monitoring of CBC, transfuse as needed for hemoglobin less than 7 and/or platelet count less than 10 -Maintain neutropenic precautions -Continue acyclovir, ciprofloxacin, and Diflucan. Thank you for allowing us to participate in the care of this pleasant patient. Do not hesitate to contact us with questions. Someone can be reached from the [facility] hospitalist group all hours of the day at [phone] or via perfect serve. Attending Note: Maximo Marie NP rendered care for this patient independently, reviewed the findings and plan as documented in the note above. I did not physically speak with or examine the patient on this date. Objective - Vital Signs Vital signs: Vital Signs Temp 97.6 F 12/22/21 08:00 Pulse 84 12/22/21 08:00 Resp 16 12/22/21 08:00 BP 136/77 12/22/21 08:00 Pulse Ox 100 12/22/21 08:00 FiO2 Intake & Output 12/21/21 12/22/21 12/22/21 18:59 06:59 18:59 Intake Total 1200 1730 Balance 1200 1730 Weight 111.3 kg Intake: Intake, IV Titration 1250 Amount Ondansetron 16 mg In 50 Sodium Chloride 0.9% 50 ml @ 232 mls/hr IVPB Q24H [facility] Rx#:[id number] Sodium Chloride 0.9% 1, 1200 000 ml @ 100 mls/hr IV . Q10H [facility] Rx#:[id number] Oral 1200 480 Other: Voiding Method Toilet Toilet Toilet # Voids 4 2 - Labs CBC & Chem 7: 12/23/21 10:22 12/23/21 10:22 Labs: Abnormal Lab Results - Last 24 Hours (Table) 12/21/21 12/21/21 12/21/21 Range/Units 06:06 06:06 11:59 WBC 0.70 L* (4.50-10.00) X 10*3/uL RBC 2.58 L (4.10-5.20) X 10*6/uL Hgb 7.9 L (12.0-15.0) g/dL Hct 23.3 L (37.2-46.3) % RDW 15.2 H (11.5-14.5) % Plt Count 52 L (140-440) X 10*3/uL Plt Count Comment DECREASED A Neutrophils # 0.54 L (1.80-7.70) X 10*3/uL Lymphocytes # 0.15 L (0.90-5.00) X 10*3/uL Monocytes # 0 L (0.20-1.00) X 10*3/uL Eosinophils # 0 L (0.04-0.35) X 10*3/uL Creatinine 0.5 L (0.6-1.5) mg/dL BUN/Creatinine Ratio 35.80 H (12.00-20.00) Ratio Glucose 169 H (70-110) mg/dL POC Glucose (mg/dL) 181 H (70-110) mg/dL Albumin/Globulin Ratio 1.41 L (1.60-3.17) g/dL 12/21/21 12/21/21 12/22/21 Range/Units 17:34 20:26 07:07 WBC (4.50-10.00) X 10*3/uL RBC (4.10-5.20) X 10*6/uL Hgb (12.0-15.0) g/dL Hct (37.2-46.3) % RDW (11.5-14.5) % Plt Count (140-440) X 10*3/uL Plt Count Comment Neutrophils # (1.80-7.70) X 10*3/uL Lymphocytes # (0.90-5.00) X 10*3/uL Monocytes # (0.20-1.00) X 10*3/uL Eosinophils # (0.04-0.35) X 10*3/uL Creatinine (0.6-1.5) mg/dL BUN/Creatinine Ratio (12.00-20.00) Ratio Glucose (70-110) mg/dL POC Glucose (mg/dL) 133 H 193 H 172 H (70-110) mg/dL Albumin/Globulin Ratio (1.60-3.17) g/dL
[2021-12-22 17:09] LABS: Glucose,Whole Blood 128 mg/dL (70-110)
--- NOTE | 2021-12-22 18:20 | P.PN ---
Subjective Progress Note Date: 12/22/21 Principal diagnosis: AML, admit CIVI 7+3 induction chemotherapy In follow-up today patient has no c/o on a 14 point ROS. She had a BM today. Objective - Vital Signs Vital signs: Vital Signs Temp 97.5 F L 12/22/21 15:57 Pulse 65 12/22/21 15:57 Resp 16 12/22/21 15:57 BP 132/77 12/22/21 15:57 Pulse Ox 100 12/22/21 15:57 FiO2 Intake & Output 12/21/21 12/22/21 12/22/21 18:59 06:59 18:59 Intake Total 1200 1730 Balance 1200 1730 Weight 111.3 kg Intake: Intake, IV Titration 1250 Amount Ondansetron 16 mg In 50 Sodium Chloride 0.9% 50 ml @ 232 mls/hr IVPB Q24H [facility] Rx#:[id number] Sodium Chloride 0.9% 1, 1200 000 ml @ 100 mls/hr IV . Q10H [facility] Rx#:[id number] Oral 1200 480 Other: Voiding Method Toilet Toilet Toilet # Voids 4 2 - Constitutional General appearance: Present: cooperative, no acute distress, obese - EENT Eyes: Present: anicteric sclerae, EOMI ENT: Present: hearing grossly normal, normal oropharynx - Respiratory Respiratory: bilateral: CTA - Cardiovascular Rhythm: regular Heart sounds: normal: S1, S2 Abnormal Heart Sounds: Absent: systolic murmur, diastolic murmur, rub, S3 Gallop, S4 Gallop, click, other - Peripheral edema leg Peripheral Edema: bilateral: None - Gastrointestinal General gastrointestinal: Present: normal bowel sounds, soft. Absent: absent bowel sounds, decreased bowel sounds, distended, hepatomegaly, hyperactive bowel sounds, organomegaly, rigid, scaphoid, splenomegaly, tenderness, umbilical hernia, ventral hernia - Integumentary Integumentary: Present: normal - Neurologic Neurologic: Present: CNII-XII intact - Musculoskeletal Musculoskeletal: Present: strength equal bilaterally - Psychiatric Psychiatric: Present: A&O x's 3, appropriate affect, intact judgment & insight - Labs CBC & Chem 7: 12/22/21 04:01 12/22/21 04:01 Labs: Abnormal Lab Results - Last 24 Hours (Table) 12/21/21 12/21/21 12/22/21 Range/Units 06:06 20:26 04:01 WBC 0.70 L* 0.43 L* (4.50-10.00) X 10*3/uL RBC 2.33 L (4.10-5.20) X 10*6/uL Hgb 7.2 L (12.0-15.0) g/dL Hct 22.0 L (37.2-46.3) % RDW 15.3 H (11.5-14.5) % Plt Count 37 L (140-440) X 10*3/uL Plt Count Comment A MPV 9.0 L (9.5-12.2) fL Neutrophils # (Manual) 0.28 L* (2.00-8.90) X 10*3/uL Lymphocytes # (Manual) 0.15 L (0.90-5.00) X 10*3/uL Monocytes # (Manual) 0 L (0.20-1.00) X 10*3/uL Eosinophils # (Manual) 0 L (0.04-0.35) X 10*3/uL Creatinine (0.6-1.5) mg/dL BUN/Creatinine Ratio (12.00-20.00) Ratio Glucose (70-110) mg/dL POC Glucose (mg/dL) 193 H (70-110) mg/dL Total Protein (6.2-8.2) g/dL Albumin (3.8-4.9) g/dL Albumin/Globulin Ratio (1.60-3.17) g/dL 12/22/21 12/22/21 12/22/21 Range/Units 04:01 07:07 11:09 WBC (4.50-10.00) X 10*3/uL RBC (4.10-5.20) X 10*6/uL Hgb (12.0-15.0) g/dL Hct (37.2-46.3) % RDW (11.5-14.5) % Plt Count (140-440) X 10*3/uL Plt Count Comment MPV (9.5-12.2) fL Neutrophils # (Manual) (2.00-8.90) X 10*3/uL Lymphocytes # (Manual) (0.90-5.00) X 10*3/uL Monocytes # (Manual) (0.20-1.00) X 10*3/uL Eosinophils # (Manual) (0.04-0.35) X 10*3/uL Creatinine 0.5 L (0.6-1.5) mg/dL BUN/Creatinine Ratio 39.20 H (12.00-20.00) Ratio Glucose 159 H (70-110) mg/dL POC Glucose (mg/dL) 172 H 200 H (70-110) mg/dL Total Protein 6.1 L (6.2-8.2) g/dL Albumin 3.6 L (3.8-4.9) g/dL Albumin/Globulin Ratio 1.44 L (1.60-3.17) g/dL 12/22/21 Range/Units 17:08 WBC (4.50-10.00) X 10*3/uL RBC (4.10-5.20) X 10*6/uL Hgb (12.0-15.0) g/dL Hct (37.2-46.3) % RDW (11.5-14.5) % Plt Count (140-440) X 10*3/uL Plt Count Comment MPV (9.5-12.2) fL Neutrophils # (Manual) (2.00-8.90) X 10*3/uL Lymphocytes # (Manual) (0.90-5.00) X 10*3/uL Monocytes # (Manual) (0.20-1.00) X 10*3/uL Eosinophils # (Manual) (0.04-0.35) X 10*3/uL Creatinine (0.6-1.5) mg/dL BUN/Creatinine Ratio (12.00-20.00) Ratio Glucose (70-110) mg/dL POC Glucose (mg/dL) 128 H (70-110) mg/dL Total Protein (6.2-8.2) g/dL Albumin (3.8-4.9) g/dL Albumin/Globulin Ratio (1.60-3.17) g/dL Assessment and Plan (1) Acute myeloid leukemia Current Visit: Yes Status: Acute Priority: High Code(s): C92.00 - ACUTE MYELOBLASTIC LEUKEMIA, NOT HAVING ACHIEVED REMISSION SNOMED Code(s): 55109930 (2) DM II (diabetes mellitus, type II), controlled Current Visit: No Status: Chronic Priority: Low Code(s): E11.9 - TYPE 2 DIABETES MELLITUS WITHOUT COMPLICATIONS SNOMED Code(s): 87892688 (3) HTN (hypertension) Current Visit: Yes Status: Chronic Priority: Low Code(s): I10 - ESSENTIAL (PRIMARY) HYPERTENSION SNOMED Code(s): 37271523 Plan: Admitted for induction chemotherapy 7+3 regimen. Double lumen PICC line in [facility]. Echo for baseline, LVEF 55%. Supportive medications. Preventative measures. Regular diet-patient encouraged to have things brought from home. [place] fluids. Activity 5 times a day with shoes on. Up in the chair for all meals. Encouraged moving as much as possible. Daily weights. Reviewed labs today, as expected. No G-CSF. Transfuse with irradiated blood products only. Transfuse for hemoglobin less than 7 and a platelet count less than 10,000, unless patient is symptomatic. No transfusions needed today. Daily follow-up. Vital signs Q shift and PRN. DVT prophylaxis with SCDs. GI prophylaxis IM on case for elevated CBG 2/2 steroids, stress. Cont all above. We discussed 3 x week CBC in ofc, temp monitoring, and high risk for readmit, especially with the induction. She verbalized understanding. DC Medications will be sent tomorrow
[2021-12-22 20:31] LABS: Glucose,Whole Blood 165 mg/dL (70-110)
[2021-12-22] MEDS: OLANZapine 2.5 MG TAB PO SCH (21:13)
[2021-12-22] MEDS: VERAPAMIL SR 120 MG TABLET.ER PO SCH (21:13)
[2021-12-22] MEDS: polyethylene glycoL 3350 17 GM POWD.PACK PO SCH (21:15)
[2021-12-22] MEDS ORDERED: FAMOTIDINE 20 MG/2 ML VIAL IVP ONE (23:45)
[2021-12-22] MEDS ORDERED: DEXAMETHASONE SOD PHOSPHATE 10 MG/ML 1 ML VIAL IVP ONE (23:45)
[2021-12-23] MEDS: DEXAMETHASONE SOD PHOSPHATE 10 MG/ML 1 ML VIAL IVP SCH (00:01)
[2021-12-23] MEDS: SODIUM CHLORIDE 0.9% IV SCH (00:02)
[2021-12-23] MEDS: CYTARABINE IV SCH (00:02)
[2021-12-23] MEDS: SODIUM CHLORIDE 0.9% 1,000 ML IV SCH ×2 (00:05→08:20)
[2021-12-23] MEDS: ONDANSETRON 16 MG in SODIUM CHLORIDE 0.9% 50 ML IVPB SCH (00:13)
[2021-12-23] MEDS: SALT AND SODA MOUTHWASH 1,000 ML PO SCH ×6 (00:15→21:03)
[2021-12-23] MEDS: FAMOTIDINE 20 MG/2 ML VIAL IVP SCH (00:17)
[2021-12-23 07:12] LABS: Glucose,Whole Blood 201 mg/dL (70-110)
[2021-12-23] MEDS: INSULIN ASPART (NovoLOG) 100 UNIT/ML VIAL SQ SCH ×4 (08:18→21:04)
[2021-12-23] MEDS: INSULIN DETEMIR (LEVEMIR) 100 UNIT/ML SYR SQ SCH (08:18)
[2021-12-23] MEDS: metFORMIN 500 MG TAB PO SCH (08:19)
[2021-12-23] MEDS: ACYCLOVIR 200 MG CAP PO SCH ×2 (08:19→21:30)
[2021-12-23] MEDS: CIPROFLOXACIN HCL 500 MG TAB PO SCH ×2 (08:19→21:03)
[2021-12-23] MEDS: FLUCONAZOLE 100 MG TAB PO SCH (08:20)
[2021-12-23 10:58] LABS: ALT 29 U/L (4-34); AST 21 U/L (14-36); African American GFR (CKD) >90 (>60 ml/min/1.73 sqM); Albumin 3.5 g/dL (3.5-5.0); Albumin/Globulin Ratio 1.3; Alkaline Phosphatase 82 U/L (38-126); Anion Gap 10 mmol/L; Blood Urea Nitrogen 19 mg/dL (7-17); Calcium 8.1 mg/dL (8.4-10.2); Carbon Dioxide 19 mmol/L (22-30); Chloride 106 mmol/L (98-107); Globulin 2.7 g/dL; Glucose 235 mg/dL (74-99); HCT 23.3 % (34.0-46.0); HGB 7.8 gm/dL (11.4-16.0); MCH 30.8 pg (25.0-35.0); MCHC 33.6 g/dL (31.0-37.0); MCV 91.7 fL (80.0-100.0); Mean Platelet Volume 9.8; Non-African American GFR(CKD) >90 (>60 ml/min/1.73 sqM); Platelet Count 34 k/uL (150-450); Poikilocytosis Slight; Potassium 3.8 mmol/L (3.5-5.1); RBC 2.54 m/uL (3.80-5.40); RDW 15.6 % (11.5-15.5); Sodium 135 mmol/L (137-145); Total Bilirubin 0.7 mg/dL (0.2-1.3); Total Protein 6.2 g/dL (6.3-8.2)
[2021-12-23 11:01] LABS: WBC 0.2 k/uL (3.8-10.6)
[2021-12-23 11:11] LABS: Glucose,Whole Blood 214 mg/dL (70-110)
--- NOTE | 2021-12-23 11:54 | P.PN ---
Subjective Progress Note Date: 12/23/21 Principal diagnosis: AML, admit CIVI 7+3 induction chemotherapy In follow-up today patient has no c/o on a 14 point ROS. She is eating and drinking, ambulating, no physical chemo SE. Heme toxicities are progressive. Objective - Vital Signs Vital signs: Vital Signs Temp 98.3 F 12/23/21 07:53 Pulse 64 12/23/21 07:53 Resp 16 12/23/21 07:53 BP 132/83 12/23/21 07:53 Pulse Ox 100 12/23/21 07:53 FiO2 Intake & Output 12/22/21 12/23/21 12/23/21 18:59 06:59 18:59 Intake Total 1471.2 940 Balance 1471.2 940 Weight 111.9 kg Intake: Intake, IV Titration 1471.2 940 Amount Cytarabine/Pf 320 mg In 271.2 140 Sodium Chloride 0.9% 500 ml 500 ml @ 21.5 mls/hr IV Q24H [facility] Rx#:[id number] Sodium Chloride 0.9% 1, 1200 800 000 ml @ 100 mls/hr IV . Q10H [facility] Rx#:[id number] Other: Voiding Method Toilet Toilet Toilet - Constitutional General appearance: Present: cooperative, no acute distress, obese - EENT Eyes: Present: anicteric sclerae, EOMI ENT: Present: hearing grossly normal, normal oropharynx - Respiratory Respiratory: bilateral: CTA - Cardiovascular Rhythm: regular Heart sounds: normal: S1, S2 Abnormal Heart Sounds: Absent: systolic murmur, diastolic murmur, rub, S3 Gallop, S4 Gallop, click, other - Peripheral edema leg Peripheral Edema: bilateral: None - Gastrointestinal General gastrointestinal: Present: normal bowel sounds, soft - Integumentary Integumentary: Present: normal - Neurologic Neurologic: Present: CNII-XII intact - Musculoskeletal Musculoskeletal: Present: strength equal bilaterally - Psychiatric Psychiatric: Present: A&O x's 3, appropriate affect, intact judgment & insight - Labs CBC & Chem 7: 12/23/21 10:22 12/23/21 10:22 Labs: Abnormal Lab Results - Last 24 Hours (Table) 12/22/21 12/22/21 12/22/21 Range/Units 04:01 17:08 20:30 WBC 0.43 L* (4.50-10.00) X 10*3/uL RBC (3.80-5.40) m/uL Hgb (11.4-16.0) gm/dL Hct (34.0-46.0) % RDW (11.5-15.5) % Plt Count (150-450) k/uL Sodium (137-145) mmol/L Carbon Dioxide (22-30) mmol/L BUN (7-17) mg/dL Creatinine (0.52-1.04) mg/dL Glucose (74-99) mg/dL POC Glucose (mg/dL) 128 H 165 H (70-110) mg/dL Calcium (8.4-10.2) mg/dL Total Protein (6.3-8.2) g/dL 12/23/21 12/23/21 12/23/21 Range/Units 07:10 10:22 10:22 WBC 0.2 L* (4.50-10.00) X 10*3/uL RBC 2.54 L (3.80-5.40) m/uL Hgb 7.8 L (11.4-16.0) gm/dL Hct 23.3 L (34.0-46.0) % RDW 15.6 H (11.5-15.5) % Plt Count 34 L (150-450) k/uL Sodium 135 L (137-145) mmol/L Carbon Dioxide 19 L (22-30) mmol/L BUN 19 H (7-17) mg/dL Creatinine 0.46 L (0.52-1.04) mg/dL Glucose 235 H (74-99) mg/dL POC Glucose (mg/dL) 201 H (70-110) mg/dL Calcium 8.1 L (8.4-10.2) mg/dL Total Protein 6.2 L (6.3-8.2) g/dL 12/23/21 Range/Units 11:09 WBC (4.50-10.00) X 10*3/uL RBC (3.80-5.40) m/uL Hgb (11.4-16.0) gm/dL Hct (34.0-46.0) % RDW (11.5-15.5) % Plt Count (150-450) k/uL Sodium (137-145) mmol/L Carbon Dioxide (22-30) mmol/L BUN (7-17) mg/dL Creatinine (0.52-1.04) mg/dL Glucose (74-99) mg/dL POC Glucose (mg/dL) 214 H (70-110) mg/dL Calcium (8.4-10.2) mg/dL Total Protein (6.3-8.2) g/dL Assessment and Plan (1) Acute myeloid leukemia Current Visit: Yes Status: Acute Priority: High Code(s): C92.00 - ACUTE MYELOBLASTIC LEUKEMIA, NOT HAVING ACHIEVED REMISSION SNOMED Code(s): 83882269 (2) DM II (diabetes mellitus, type II), controlled Current Visit: No Status: Chronic Priority: Low Code(s): E11.9 - TYPE 2 DIABETES MELLITUS WITHOUT COMPLICATIONS SNOMED Code(s): 34962004 (3) HTN (hypertension) Current Visit: Yes Status: Chronic Priority: Low Code(s): I10 - ESSENTIAL (PRIMARY) HYPERTENSION SNOMED Code(s): 36716525 Plan: Admitted for induction chemotherapy 7+3 regimen. Double lumen PICC line insertion. Echo for baseline, LVEF 55%. Should be finishing around midnight tonight Supportive medications. Preventative measures. All cont, no changes needed Regular diet-patient encouraged to have things brought from home. [place] fluids, pt is managing. Activity 5 times a day with shoes on. Up in the chair for all meals. Encouraged moving as much as possible. Daily weights. Reviewed labs today, progressive decrease, as expected. No G-CSF. Transfuse with irradiated blood products only. Transfuse for hemoglobin less than 7 and a platelet count less than 10,000, unless patient is symptomatic. No transfusions needed today. Daily follow-up. Vital signs Q shift and PRN. DVT prophylaxis with SCDs. GI prophylaxis IM on case for elevated CBG 2/2 steroids, stress. Cont all above. We discussed 3 x week CBC in ofc, temp monitoring, and high risk for readmit, especially with the induction. Written instructions in DC. CBC planned for [place] in ofc. Alll Rx sent to pharmacy today. All pt questions answered to her sa luis. Attests: I have seen and examined pt, performed H&P, developed impression and plan of care. Discussed with dictator. Agree with documentation, dictated as a scribe.
--- NOTE | 2021-12-23 15:53 | P.PN ---
Subjective Progress Note Date: 12/23/21 Hospital course: Patient is a very pleasant 65-year-old female with a past medical history of hypertension, GERD, diabetes mellitus, and AML. She is currently admitted under the hematology/oncology team undergoing induction chemotherapeutic treatment with Cytarabine. We have been consulted for medical management throughout hospitalization. Physical exam: Patient seen and fully evaluated at the bedside this morning. Patient is currently completing final dose of chemotherapeutic treatment with Cytarabine. Patient reports feeling well and continues to deny having any complaints at this time. Blood sugars have remained slightly elevated but stable. Continued pancytopenia with WBC count of 0.2, hemoglobin 7.8, and platelet count of 34. Patient remains neutropenic precautions and vital signs remain unremarkable. Vital signs reviewed and stable. General: Nontoxic, no distress and appears stated age. Derm: Skin warm and dry, normal coloration for ethnicity. Head: Atraumatic, normocephalic and symmetric. Eyes: EOMs intact, no lid lag, and anicteric sclera Mouth: no lip lesions, mucus membranes moist Cardiovascular: regular rate and rhythm with normal S1S2, no murmur, positive posterior tibial pulses bilaterally, and cap refill < 2 seconds. Lungs: Respirations even, regular, and unlabored on room air. Lungs CTA bilaterally, no rhonchi, no rales, no wheezing, and no accessory muscle usage. Abdominal: soft, nontender to palpation, no guarding, no appreciable organomegaly Ext: ROM intact. No gross muscle atrophy, no edema, no contractures Neuro: Speech clear, face symmetrical and CN II-XII grossly intact with no noted focal neuro deficits Psych: Alert and oriented to person, place, time, and situation. Appropriate and pleasant affect. Assessment and Plan of Care: Hyperglycemia and a type II hsv-xopywil-fpjfrcged diabetic Steroid-induced hyperglycemia -Continue Glucophage and place patient on glycemic protocol with NovoLog sliding scale. Hypertension -Monitor vital signs and continue daily medication regimen with verapamil. AML Pancytopenia secondary to above. - Patient is undergoing induction chemotherapeutic treatment with Cytarabine, currently completing day 7 of 7 -Management per primary admitting hematology/oncology team. -Continue close monitoring of CBC, transfuse as needed for hemoglobin less than 7 and/or platelet count less than 10 -Maintain neutropenic precautions -Continue acyclovir, ciprofloxacin, and Diflucan. Thank you for allowing us to participate in the care of this pleasant patient. Do not hesitate to contact us with questions. Someone can be reached from the [facility] hospitalist group all hours of the day at [phone] or via perfect serve. Objective - Vital Signs Vital signs: Vital Signs Temp 98.3 F 12/23/21 07:53 Pulse 64 12/23/21 07:53 Resp 16 12/23/21 07:53 BP 132/83 12/23/21 07:53 Pulse Ox 100 12/23/21 07:53 FiO2 Intake & Output 12/22/21 12/23/21 12/23/21 18:59 06:59 18:59 Intake Total 1471.2 940 Balance 1471.2 940 Weight 111.9 kg Intake: Intake, IV Titration 1471.2 940 Amount Cytarabine/Pf 320 mg In 271.2 140 Sodium Chloride 0.9% 500 ml 500 ml @ 21.5 mls/hr IV Q24H [facility] Rx#:[id number] Sodium Chloride 0.9% 1, 1200 800 000 ml @ 100 mls/hr IV . Q10H [facility] Rx#:[id number] Other: Voiding Method Toilet Toilet - Labs CBC & Chem 7: 12/23/21 10:22 12/23/21 10:22 Labs: Abnormal Lab Results - Last 24 Hours (Table) 12/21/21 12/22/21 12/22/21 Range/Units 06:06 04:01 04:01 WBC 0.70 L* 0.43 L* (4.50-10.00) X 10*3/uL RBC 2.33 L (4.10-5.20) X 10*6/uL Hgb 7.2 L (12.0-15.0) g/dL Hct 22.0 L (37.2-46.3) % RDW 15.3 H (11.5-14.5) % Plt Count 37 L (140-440) X 10*3/uL Plt Count Comment A MPV 9.0 L (9.5-12.2) fL Neutrophils # (Manual) 0.28 L* (2.00-8.90) X 10*3/uL Lymphocytes # (Manual) 0.15 L (0.90-5.00) X 10*3/uL Monocytes # (Manual) 0 L (0.20-1.00) X 10*3/uL Eosinophils # (Manual) 0 L (0.04-0.35) X 10*3/uL Creatinine 0.5 L (0.6-1.5) mg/dL BUN/Creatinine Ratio 39.20 H (12.00-20.00) Ratio Glucose 159 H (70-110) mg/dL POC Glucose (mg/dL) (70-110) mg/dL Total Protein 6.1 L (6.2-8.2) g/dL Albumin 3.6 L (3.8-4.9) g/dL Albumin/Globulin Ratio 1.44 L (1.60-3.17) g/dL 12/22/21 12/22/21 12/22/21 Range/Units 11:09 17:08 20:30 WBC (4.50-10.00) X 10*3/uL RBC (4.10-5.20) X 10*6/uL Hgb (12.0-15.0) g/dL Hct (37.2-46.3) % RDW (11.5-14.5) % Plt Count (140-440) X 10*3/uL Plt Count Comment MPV (9.5-12.2) fL Neutrophils # (Manual) (2.00-8.90) X 10*3/uL Lymphocytes # (Manual) (0.90-5.00) X 10*3/uL Monocytes # (Manual) (0.20-1.00) X 10*3/uL Eosinophils # (Manual) (0.04-0.35) X 10*3/uL Creatinine (0.6-1.5) mg/dL BUN/Creatinine Ratio (12.00-20.00) Ratio Glucose (70-110) mg/dL POC Glucose (mg/dL) 200 H 128 H 165 H (70-110) mg/dL Total Protein (6.2-8.2) g/dL Albumin (3.8-4.9) g/dL Albumin/Globulin Ratio (1.60-3.17) g/dL 12/23/21 Range/Units 07:10 WBC (4.50-10.00) X 10*3/uL RBC (4.10-5.20) X 10*6/uL Hgb (12.0-15.0) g/dL Hct (37.2-46.3) % RDW (11.5-14.5) % Plt Count (140-440) X 10*3/uL Plt Count Comment MPV (9.5-12.2) fL Neutrophils # (Manual) (2.00-8.90) X 10*3/uL Lymphocytes # (Manual) (0.90-5.00) X 10*3/uL Monocytes # (Manual) (0.20-1.00) X 10*3/uL Eosinophils # (Manual) (0.04-0.35) X 10*3/uL Creatinine (0.6-1.5) mg/dL BUN/Creatinine Ratio (12.00-20.00) Ratio Glucose (70-110) mg/dL POC Glucose (mg/dL) 201 H (70-110) mg/dL Total Protein (6.2-8.2) g/dL Albumin (3.8-4.9) g/dL Albumin/Globulin Ratio (1.60-3.17) g/dL
[2021-12-23 16:26] VITALS: BMI 42.3
[2021-12-23 17:20] LABS: Glucose,Whole Blood 159 mg/dL (70-110)
[2021-12-23 20:16] LABS: Glucose,Whole Blood 175 mg/dL (70-110)
[2021-12-23] MEDS: polyethylene glycoL 3350 17 GM POWD.PACK PO SCH (21:04)
[2021-12-23] MEDS: VERAPAMIL SR 120 MG TABLET.ER PO SCH (21:04)
[2021-12-23] MEDS: OLANZapine 2.5 MG TAB PO SCH (21:04)
[2021-12-23 21:09] VITALS: RESP 16
[2021-12-24] MEDS: SALT AND SODA MOUTHWASH 1,000 ML PO SCH ×3 (00:29→13:47)
[2021-12-24] MEDS: SODIUM CHLORIDE 0.9% 1,000 ML IV SCH ×2 (04:30→13:48)
[2021-12-24 05:09] VITALS: TEMP 98.1
[2021-12-24 07:13] LABS: Glucose,Whole Blood 94 mg/dL (70-110)
[2021-12-24] MEDS: ACYCLOVIR 200 MG CAP PO SCH (09:10)
[2021-12-24] MEDS: INSULIN ASPART (NovoLOG) 100 UNIT/ML VIAL SQ SCH ×2 (09:10→13:47)
[2021-12-24] MEDS: INSULIN DETEMIR (LEVEMIR) 100 UNIT/ML SYR SQ SCH (09:10)
[2021-12-24] MEDS: metFORMIN 500 MG TAB PO SCH (09:10)
[2021-12-24] MEDS: CIPROFLOXACIN HCL 500 MG TAB PO SCH (09:10)
[2021-12-24] MEDS: FLUCONAZOLE 100 MG TAB PO SCH (09:11)
[2021-12-24 10:09] VITALS: BP 126/78
[2021-12-24 10:59] LABS: HCT 23.8 % (34.0-46.0); HGB 8.4 gm/dL (11.4-16.0); MCH 32.2 pg (25.0-35.0); MCHC 35.1 g/dL (31.0-37.0); MCV 91.6 fL (80.0-100.0); Mean Platelet Volume 9.2; Poikilocytosis Slight; RDW 15.1 % (11.5-15.5)
[2021-12-24 11:08] LABS: WBC 0.4 k/uL (3.8-10.6)
[2021-12-24 11:09] LABS: Platelet Count 27 k/uL (150-450)
[2021-12-24 11:13] LABS: ALT 26 U/L (4-34); AST 17 U/L (14-36); African American GFR (CKD) >90 (>60 ml/min/1.73 sqM); Albumin 3.5 g/dL (3.5-5.0); Albumin/Globulin Ratio 1.3; Alkaline Phosphatase 60 U/L (38-126); Anion Gap 8 mmol/L; Blood Urea Nitrogen 23 mg/dL (7-17); Carbon Dioxide 22 mmol/L (22-30); Chloride 107 mmol/L (98-107); Globulin 2.7 g/dL; Glucose 169 mg/dL (74-99); Non-African American GFR(CKD) >90 (>60 ml/min/1.73 sqM); Potassium 3.4 mmol/L (3.5-5.1); Sodium 137 mmol/L (137-145); Total Protein 6.2 g/dL (6.3-8.2)
[2021-12-24 12:09] LABS: Glucose,Whole Blood 132 mg/dL (70-110)
[2021-12-24 12:38] VITALS: PULSE 98
--- NOTE | 2021-12-24 16:58 | P.PN ---
Subjective Progress Note Date: 12/24/21 Hospital course: Patient is a very pleasant 65-year-old female with a past medical history of hypertension, GERD, diabetes mellitus, and AML. She is currently admitted under the hematology/oncology team undergoing induction chemotherapeutic treatment with Cytarabine. We have been consulted for medical management throughout hospitalization. Physical exam: Patient seen and fully evaluated at the bedside this morning. She has completed complete treatment with chemotherapeutic agent Cytarabine. 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 Pending morning labs, hematology/oncology planning to discharge patient later today. Patient's condition is stable and medically his CBC and CMP showing no significant changes/abnormalities patient is stable for discharge home. Vital signs reviewed and stable. General: Nontoxic, no distress and appears stated age. Derm: Skin warm and dry, normal coloration for ethnicity. Head: Atraumatic, normocephalic and symmetric. Eyes: EOMs intact, no lid lag, and anicteric sclera Mouth: no lip lesions, mucus membranes moist Cardiovascular: regular rate and rhythm with normal S1S2, no murmur, positive posterior tibial pulses bilaterally, and cap refill < 2 seconds. Lungs: Respirations even, regular, and unlabored on room air. Lungs CTA bilaterally, no rhonchi, no rales, no wheezing, and no accessory muscle usage. Abdominal: soft, nontender to palpation, no guarding, no appreciable organo megaly Ext: ROM intact. No gross muscle atrophy, no edema, no contractures Neuro: Speech clear, face symmetrical and CN II-XII grossly intact with no noted focal neuro deficits Psych: Alert and oriented to person, place, time, and situation. Appropriate and pleasant affect. Assessment and Plan of Care: Hyperglycemia and a type II pnk-[id number]-[id number] diabetic Steroid-induced hyperglycemia -Continue Glucophage and place patient on glycemic protocol with NovoLog sliding scale. Hypertension -Monitor vital signs and continue daily medication regimen with verapamil. AML Pancytopenia secondary to above. - Patient is undergoing induction chemotherapeutic treatment with Cytarabine, currently completing day 7 of 7 -Management per primary admitting hematology/oncology team. -Continue close monitoring of CBC, transfuse as needed for hemoglobin less than 7 and/or platelet count less than 10 -Maintain neutropenic precautions -Continue acyclovir, ciprofloxacin, and Diflucan. Thank you for allowing us to participate in the care of this pleasant patient. Do not hesitate to contact us with questions. Someone can be reached from the [facility] hospitalist group all hours of the day at [phone] or via perfect serve. Objective - Vital Signs Vital signs: Vital Signs Temp 98.1 F 12/24/21 04:00 Pulse 66 12/24/21 04:00 Resp 16 12/24/21 04:00 BP 125/74 12/24/21 04:00 Pulse Ox 100 12/24/21 04:00 FiO2 Intake & Output 12/23/21 12/24/21 12/24/21 18:59 06:59 18:59 Intake Total 1458 590 Balance 1458 590 Weight 111.9 kg 114 kg Intake: Intake, IV Titration 1458 Amount Cytarabine/Pf 320 mg In 258 Sodium Chloride 0.9% 500 ml 500 ml @ 21.5 mls/hr IV Q24H CRISTIN Rx#:[id number] Sodium Chloride 0.9% 1, 1200 000 ml @ 100 mls/hr IV . Q10H CRISTIN Rx#:[id number] Oral 590 Other: Voiding Method Toilet Toilet # Voids 3 - Labs CBC & Chem 7: 12/24/21 10:40 12/24/21 10:40 Labs: Abnormal Lab Results - Last 24 Hours (Table) 12/23/21 12/23/21 12/23/21 Range/Units 10:22 10:22 11:09 WBC 0.2 L* (3.8-10.6) k/uL RBC 2.54 L (3.80-5.40) m/uL Hgb 7.8 L (11.4-16.0) gm/dL Hct 23.3 L (34.0-46.0) % RDW 15.6 H (11.5-15.5) % Plt Count 34 L (150-450) k/uL Sodium 135 L (137-145) mmol/L Carbon Dioxide 19 L (22-30) mmol/L BUN 19 H (7-17) mg/dL Creatinine 0.46 L (0.52-1.04) mg/dL Glucose 235 H (74-99) mg/dL POC Glucose (mg/dL) 214 H (70-110) mg/dL Calcium 8.1 L (8.4-10.2) mg/dL Total Protein 6.2 L (6.3-8.2) g/dL 12/23/21 12/23/21 Range/Units 17:19 20:16 WBC (3.8-10.6) k/uL RBC (3.80-5.40) m/uL Hgb (11.4-16.0) gm/dL Hct (34.0-46.0) % RDW (11.5-15.5) % Plt Count (150-450) k/uL Sodium (137-145) mmol/L Carbon Dioxide (22-30) mmol/L BUN (7-17) mg/dL Creatinine (0.52-1.04) mg/dL Glucose (74-99) mg/dL POC Glucose (mg/dL) 159 H 175 H (70-110) mg/dL Calcium (8.4-10.2) mg/dL Total Protein (6.3-8.2) g/dL Assessment and Plan Assessment: Attending note Maximo hammonds NP rendered care for this patient independently, reviewed the findings and plan as documented in the note above. I did not physically speak with or examined the patient on this date
--- NOTE | 2021-12-24 17:53 | P.DS ---
Providers Date of admission: 12/16/21 09:02 Expected date of discharge: 12/24/21 Attending physician: Avi Parisi Consults: 12/18/21 17:44 Consult Physician Routine Consulting Provider: Hilda Lipscomb Consult Reason/Comments: hyperglycemia, asked by angela arias NP to eval patient Do you want consulting provider notified?: Already Contacted Primary care physician: Kenneth Govea - Discharge Diagnosis(es) (1) Acute myeloid leukemia Status: Acute Priority: High (2) DM II (diabetes mellitus, type II), controlled Status: Chronic Priority: Low (3) HTN (hypertension) Status: Chronic Priority: Low Hospital Course: Patient admitted for first cycle of induction chemotherapy, 7+3 regimen for acute myeloid leukemia. She had a PICC line placed on admission, echo showing a normal ejection fraction. Her hospital course was thankfully unremarkable, her vital signs remained stable, no significant side effects. Patient continued to be ambulatory, tolerating oral intake. She completed treatment overnight. Her labs are as expected, decreasing counts. She has not yet required a transfusion. Patient has been educated on temperature monitoring, signs and symptoms of infection, she is scheduled for CBC 3 times a week. When seen this morning, patient has no complaints. All of her prescriptions have been sent. Assessment: Well-developed, well-nourished, no acute distress, alert and oriented 4, oral mucosa is free of thrush or lesions, normocephalic, atraumatic, anicteric sclera, trach is midline, bilateral breath sounds clear to auscultation, respiratory effort unlabored, chest expansion symmetrical, S1-S2, no murmur, gallop or rub, abdomen is soft, nontender, bowel sounds positive, no lower extremity swelling, no rashes or unusual bruising. Procedures: PICC line insertion ECHO Patient Condition at Discharge: Stable Plan - Discharge Summary Discharge Rx Participant: Yes New Discharge Prescriptions: New OLANZapine [ZyPREXA] 2.5 mg PO HS #30 tablet Ciprofloxacin HCl [Cipro] 500 mg PO Q12HR 1 Days #42 tab Acyclovir [Zovirax] 400 mg PO BID #42 tablet Ondansetron [Zofran] 4 mg PO Q4HR PRN #45 tab PRN Reason: Nausea Continue Verapamil HCl [Verelan Pm] 100 mg PO HS [place]-3 Fatty Acids/Fish Oil [Fish Oil 1,000 mg Softgel] 1 cap PO DAILY metFORMIN HCL [Glucophage] 1,000 mg PO DAILY Fluconazole [Diflucan] 100 mg PO DAILY #21 tab Discharge Medication List [place]-3 Fatty Acids/Fish Oil [Fish Oil 1,000 mg Softgel] 1 cap PO DAILY 01/30/18 [History] Verapamil HCl [Verelan Pm] 100 mg PO HS 01/30/18 [History] metFORMIN HCL [Glucophage] 1,000 mg PO DAILY 01/30/18 [History] Acyclovir [Zovirax] 400 mg PO BID #42 tablet 12/23/21 [Rx] Ciprofloxacin HCl [Cipro] 500 mg PO Q12HR 1 Days #42 tab 12/23/21 [Rx] Fluconazole [Diflucan] 100 mg PO DAILY #21 tab 12/23/21 [Rx] OLANZapine [ZyPREXA] 2.5 mg PO HS #30 tablet 12/23/21 [Rx] Ondansetron [Zofran] 4 mg PO Q4HR PRN #45 tab 12/23/21 [Rx] Follow up Appointment(s)/Referral(s): Avi Parisi MD [STAFF PHYSICIAN] - 12/25/21 9:30 am Patient Instructions/Handouts: Ciprofloxacin (By mouth), Acyclovir (By mouth), Fluconazole (By mouth), Ondansetron (By mouth), Olanzapine (By mouth), Acute Myeloid Leukemia (DC) Activity/Diet/Wound Care/Special Instructions: for wigs call Rach Delgado she is the [facility] nurse navigator she stated once your done call her and she will help you with getting wigs. Monitor temp 1-2 times a day and as needed if feeling hot or chills. MUST CALL [phone] FOR A TEMP 100.5F. IF TEMP >= 101F JUST GO TO NEAREST ER. [place] fluids Moderate activity-mostly walking, no lifting more then 8lbs (gallon of milk) NO aspirin, motrin, ibuprofen, advil or aleve-USE only tylenol for pain Watch for bleeding-red urine, black or maroon stool Discharge Disposition: HOME SELF-CARE Pending Studies Pending Results: None attests: I have seen and examined patient, performed H&P, developed impression and plan of care. Discussed with dictator. Agree with documentation, dictated as a scribe.
--- NOTE | 2021-12-28 18:56 | P.PN ---
Subjective Progress Note Date: 12/18/21 Principal diagnosis: AML, admit CIVI 7+3 induction chemotherapy In follow-up today patient has no c/o on a 14 point ROS. She was not very active yesterday so, she was encouraged to ambulate today. She is tolerating oral intake, no BM but, she is not outside her normal BM routine yet. No pain. Objective - Vital Signs Vital signs: Vital Signs Temp 98.1 F 12/18/21 12:15 Pulse 70 12/18/21 12:15 Resp 16 12/18/21 12:15 BP 138/81 12/18/21 12:15 Pulse Ox 99 12/18/21 12:15 FiO2 Intake & Output 12/17/21 12/18/21 12/18/21 18:59 06:59 18:59 Intake Total 2178 1686 360 Balance 2178 1686 360 Weight 100.9 kg Intake: Intake, IV Titration 1458 1686 Amount Cytarabine/Pf 320 mg In 258 286 Sodium Chloride 0.9% 500 ml 500 ml @ 21.5 mls/hr IV Q24H [facility]RISTIN Rx#:[id number] IDArubicin HCL 20 mg 150 IDArubicin HCL 5 mg In Empty Syringe 1 syr @ 150 mls/hr IV Q24H [facility]RISTIN Rx#: [id number] Ondansetron 16 mg In 50 Sodium Chloride 0.9% 50 ml @ 232 mls/hr IVPB Q24H [facility]RISTIN Rx#:[id number] Sodium Chloride 0.9% 1, 1200 1200 000 ml @ 100 mls/hr IV . Q10H CRISTIN Rx#:[id number] Oral 720 360 Other: Voiding Method Toilet # Voids 6 - Constitutional General appearance: Present: average body habitus, cooperative, no acute distress - EENT Eyes: Present: anicteric sclerae, EOMI ENT: Present: hearing grossly normal, normal oropharynx - Respiratory Respiratory: bilateral: CTA - Cardiovascular Rhythm: regular Heart sounds: normal: S1, S2 Abnormal Heart Sounds: Absent: systolic murmur, diastolic murmur, rub, S3 Gallop, S4 Gallop, click, other - Peripheral edema leg Peripheral Edema: bilateral: Trace - Gastrointestinal General gastrointestinal: Present: normal bowel sounds, soft - Integumentary Integumentary: Present: normal - Neurologic Neurologic: Present: CNII-XII intact - Musculoskeletal Musculoskeletal: Present: strength equal bilaterally - Psychiatric Psychiatric: Present: A&O x's 3, appropriate affect, intact judgment & insight - Labs CBC & Chem 7: 12/18/21 07:14 12/18/21 07:14 Labs: Abnormal Lab Results - Last 24 Hours (Table) 12/18/21 12/18/21 Range/Units 07:14 07:14 WBC 0.48 L* (4.50-10.00) X 10*3/uL RBC 2.50 L (4.10-5.20) X 10*6/uL Hgb 7.7 L (12.0-15.0) g/dL Hct 24.0 L (37.2-46.3) % RDW 15.3 H (11.5-14.5) % Plt Count 54 L (140-440) X 10*3/uL Plt Count Comment DECREASED A MPV 8.7 L (9.5-12.2) fL Neutrophils # 0.28 L* (1.80-7.70) X 10*3/uL Lymphocytes # 0.18 L (0.90-5.00) X 10*3/uL Monocytes # 0.02 L (0.20-1.00) X 10*3/uL Eosinophils # 0 L (0.04-0.35) X 10*3/uL Creatinine 0.5 L (0.6-1.5) mg/dL BUN/Creatinine Ratio 32.69 H (12.00-20.00) Ratio Glucose 183 H (70-110) mg/dL Albumin/Globulin Ratio 1.34 L (1.60-3.17) g/dL Assessment and Plan (1) Acute myeloid leukemia Current Visit: Yes Status: Acute Priority: High Code(s): C92.00 - ACUTE MYELOBLASTIC LEUKEMIA, NOT HAVING ACHIEVED REMISSION SNOMED Code(s): 39297392 (2) DM II (diabetes mellitus, type II), controlled Current Visit: No Status: Chronic Priority: Low Code(s): E11.9 - TYPE 2 DIABETES MELLITUS WITHOUT COMPLICATIONS SNOMED Code(s): 35066259 (3) HTN (hypertension) Current Visit: Yes Status: Chronic Priority: Low Code(s): I10 - ESSENTIAL (PRIMARY) HYPERTENSION SNOMED Code(s): 31780012 Plan: Admitted for induction chemotherapy 7+3 regimen. Double lumen PICC line insertion. Echo for baseline, LVEF 55%. Supportive medications. Preventative measures. Regular diet-patient encouraged to have things brought from home. [place] fluids. Activity 5 times a day with shoes on. Up in the chair for all meals. Encouraged to cont moving as much as possible. Daily weights. Reviewed labs today, as expected. No G-CSF. Transfuse with irradiated blood products only. Transfuse for hemoglobin less than 7 and a platelet count less than 10,000, unless patient is symptomatic. No transfusions needed today. Daily follow-up. Home medications reconciled. Vital signs Q shift and PRN. DVT prophylaxis with SCDs. GI prophylaxis CBG has remained below 200. Will cont to monitor. Cont metformin as prescribed. Dr barrosoests: I have seen and examined pt, performed H&P, developed impression and plan of care. Discussed with dictator. Agree with documentation, dictated as a scribe.
== END 2021-12-24 15:35 | disposition home or self-care (01) | DRG 838 ==
LOC: 5NMEDONC 09:02
PROVIDERS: ADMIT Internal Medicine Hematology & Oncology; ATTEND Internal Medicine Hematology & Oncology
PROC: 02HV33Z Insertion of Infusion Device into Superior Vena Cava, Percutaneous Approach (ICD-10-PCS; 2021-12-16)
PROC: 3E03305 Introduction of Other Antineoplastic into Peripheral Vein, Percutaneous Approach (ICD-10-PCS; principal; 2021-12-16 09:30)
DX: Z51.11 Encounter for antineoplastic chemotherapy (principal); C92.00 Acute myeloblastic leukemia, not having achieved remission; D61.818 Other pancytopenia; Z68.41 Body mass index [BMI] 40.0-44.9, adult; I11.9 Hypertensive heart disease without heart failure; E11.40 Type 2 diabetes mellitus with diabetic neuropathy, unspecified; E11.65 Type 2 diabetes mellitus with hyperglycemia; E66.9 Obesity, unspecified; K21.9 Gastro-esophageal reflux disease without esophagitis; T38.0X5A Adverse effect of glucocorticoids and synthetic analogues, initial encounter; K59.00 Constipation, unspecified; R91.8 Other nonspecific abnormal finding of lung field; Z79.84 Long term (current) use of oral hypoglycemic drugs; Z79.899 Other long term (current) drug therapy; Z87.440 Personal history of urinary (tract) infections; Z87.11 Personal history of peptic ulcer disease; Z71.3 Dietary counseling and surveillance; Z88.5 Allergy status to narcotic agent; Z91.040 Latex allergy status
CPT/HCPCS: 36573; 80053; 84100; 84550; 85025; 85610; 93306

== ENCOUNTER 2021-12-27 20:41 | Inpatient (IN) | payer BC, MEDICARE ==
[2021-12-27] MEDS ORDERED: SODIUM CHLORIDE 0.9% 1,000 ML IV STA ×2 (21:19→22:28)
[2021-12-27] MEDS ORDERED: IBUPROFEN 600 MG TAB PO STA (21:19)
[2021-12-27] MEDS ORDERED: ACETAMINOPHEN TAB 500 MG TAB PO STA (21:19)
[2021-12-27 22:14] LABS: HGB 7.3 gm/dL (11.4-16.0); MCH 33.3 pg (25.0-35.0); MCHC 37.7 g/dL (31.0-37.0); MCV 88.4 fL (80.0-100.0); Mean Platelet Volume 7.7; Poikilocytosis Slight; RDW 14.6 % (11.5-15.5)
--- NOTE | 2021-12-27 22:24 | ED ---
General Adult HPI - General Chief complaint: Fever Stated complaint: Fever Time Seen by Provider: 12/27/21 21:17 Source: patient, family, RN notes reviewed, old records reviewed Mode of arrival: ambulatory Limitations: no limitations - History of Present Illness Initial comments: Patient is a 66-year-old female with past medical history remarkable for newly diagnosed leukemia on chemo radiation over the last 2 weeks, diabetes, hypertension who presents emergency Department with fevers. For cystoscopy fevers at 7 PM this evening. Has endorsed diarrhea that is nonbloody and "squash colored." Patient has been on empiric ciprofloxacin, fluconazole, acyclovir as she had baseline low "blood levels". She has required transfusions in the past. Sees Dr. Parisi as her oncologist. She denies chest pain, shortness of breath, cough. Denies any dysuria or hematuria. Patient does have a left upper chest with PICC line. Denies any pain. Has no other acute complaints at this time. No obvious source of infection. Presents because she was instructed to present to the emergency department if she has a fever. - Related Data Home Medications Medication Instructions Recorded Confirmed [place]-3 Fatty Acids/Fish Oil [Fish 1 cap PO DAILY 01/30/18 12/16/21 Oil 1,000 mg Softgel] Verapamil HCl [Verelan Pm] 100 mg PO HS 01/30/18 12/16/21 metFORMIN HCL [Glucophage] 1,000 mg PO DAILY 01/30/18 12/16/21 Previous Rx's Medication Instructions Recorded Acyclovir [Zovirax] 400 mg PO BID #42 tablet 12/23/21 Ciprofloxacin HCl [Cipro] 500 mg PO Q12HR 1 Days #42 tab 12/23/21 Fluconazole [Diflucan] 100 mg PO DAILY #21 tab 12/23/21 OLANZapine [ZyPREXA] 2.5 mg PO HS #30 tablet 12/23/21 Ondansetron [Zofran] 4 mg PO Q4HR PRN #45 tab 12/23/21 Allergies Allergy/AdvReac Type Severity Reaction Status Date / Time hydrocodone [From Vicodin] AdvReac Nausea & Verified 12/27/21 21:16 Vomiting & Diarrhea latex AdvReac Itching Verified 12/27/21 21:16 Review of Systems ROS Statement: Those systems with pertinent positive or pertinent negative responses have been documented in the HPI. Review of Systems: CONST: Endorses fever EYES: Denies blurry vision ENT: Denies nasal congestion C/V: Denies Chest pain RESP: Denies shortness of breath GI: Denies abdominal pain : Denies dysuria SKIN: Denies rash. MSK: Denies joint pain. NEURO: Denies headache ROS Other: All systems not noted in ROS Statement are negative. Past Medical History Past Medical History: Cancer, Diabetes Mellitus, GERD/Reflux, Hypertension Additional Past Medical History / Comment(s): heart palpatations, neuropathy salvador feet, irregular bowel movements, benign nodules in lungs since about 2017, uterine fibroids, gastric ulcer, enlarged heart, uti's, states everything tastes salty since 2-3 weeks ago. History of Any Multi-Drug Resistant Organisms: None Reported Past Surgical History: Section, Cholecystectomy, Hernia Repair, Orthopedic Surgery Additional Past Surgical History / Comment(s): surgery for fx nose, tailbone cyst removed, left oophorectomy, partial rt oophorectomy, right shoulder surgery, hernia repair during gallbladder surgery, uterine fibroids removed Past Anesthesia/Blood Transfusion Reactions: Previous Problems w/ Anesthesia, Motion Sickness, Postoperative Nausea & Vomiting (PONV) Additional Past Anesthesia/Blood Transfusion Reaction / Comment(s): "very hard coming out of anesthesia" Past Psychological History: No Psychological Hx Reported Smoking Status: Never smoker Past Alcohol Use History: None Reported, Rare Past Drug Use History: None Reported - Past Family History Father Family Medical History: Congestive Heart Failure (CHF) Additional Family Medical History / Comment(s): at age 83, possibly from heart issues- unsure. Mother Family Medical History: Deep Vein Thrombosis (DVT) Additional Family Medical History / Comment(s): deseased at age 77 from cva General Exam - General Exam Comments Initial Comments: General: Appears in no acute distress. Febrile. HEAD: Normal with no signs of head trauma. EYES: PERRLA, EOMI, conjunctiva normal, no discharge. ENT: Hearing grossly intact, normal oropharynx. RESPIRATORY: Clear breath sounds bilaterally. No wheezes, rales, or rhonchi. C/V: Tachycardia. S1 and S2 auscultated, no edema, peripheral pulses 2+ and intact throughout. Left upper extremity PICC line is no surrounding erythema. Appears within acceptable limits. ABD: Abdomen is soft, nondistended. Tender to palpation in the left lower quadrant and around the umbilicus. No guarding. No rebound tenderness. No peritoneal signs. EXT: Normal range of motion, no obvious deformity SKIN: No rashes or lesions observed on exposed skin. NEURO: Alert and oriented x 4. Cranial nerves II-XII intact. No focal sensory or strength deficits. Limitations: no limitations Course Vital Signs 12/27/21 12/28/21 21:12 01:48 Temperature 102.5 F H Pulse Rate 129 H 108 H Respiratory 20 14 Rate Blood Pressure 117/65 130/45 O2 Sat by Pulse 98 100 Oximetry Medical Decision Making - Medical Decision Making Based on the patient's presentation and physical exam, I'm concerned for fever and a chemo patient. Last round of chemo was last Tuesday. Patient has a high fever and is tachycardic. No obvious signs of infection. We will obtain infectious laboratory studies as well as blood cultures and PICC line cultures. She will be administered antipyretics as well as IV fluids. She is resting comfortably at this time. She was in agreement this plan. Vital signs other than the tachycardia which is likely secondary to the fever are within acceptabl e limits. No respiratory distress.Patient has been on empiric antibiotics and I cannot rule out C. diff at this time as she does have diarrhea. We will obtain a C. diff culture as well. EKG shows no signs of acute ischemia.Chest x-ray as interpreted by myself reveals no signs of acute infiltrate. No acute bony traumatic process. No pneumothorax. No acute cardiopulmonary process. Laboratory studies are remarkable for a neutropenia/leukopenia with a white blood cell count of 0.2. Patient has a stable anemia with a hemoglobin of 7.3. Patient has a worsened thrombocytopenia with platelet count of 4. Like to lites are remarkable for hypomagnesemia which is replenished. Urinalysis is unremarkable except for 2+ glucose. Covid, flu, RSV are negative. I did discuss with the patient that due to her abdominal cramping, pain as well as the diarrhea I would like to obtain CT imaging of the abdomen and pelvis. She was in agreement this plan. CT imaging is interpreted by myself revealed some small bowel wall thickening that could be gastroenteritis versus colitis. No evidence of diverticulitis. No other acute findings. On reevaluation, I did update the patient. Patient met sepsis criteria at 2300. She was started on on empiric vancomycin and cefepime at this time. She is al ready received 2 L fluid bolus and was started on maintenance fluids. Vital signs are within acceptable limits. Patient's fever is improving with antipyretics as well as her heart rate. I did the patient and I would like to admit her for her neutropenic PT fever of unknown source but suspect possible neutropenic colitis. She was in agreement this plan. She will also be transfused irradiated platelets for her thrombocytopenia. I discussed the case with the patient's oncologist Dr. Parisi who was consulted and was in agreement with the above plan. He also recommended that we continue the fluconazole as well as acyclovir which was restarted. He also wants the patient nothing by mouth at this time except for medications. I spoke with the admitting team, MIRLANDE Pierson of [facility] who accepted the patient. Patient was admitted in serious condition. - Lab Data Result diagrams: 12/27/21 21:40 12/27/21 21:40 Lab Results 12/27/21 12/27/21 12/27/21 Range/Units 21:40 21:40 21:40 WBC 0.2 L* (3.8-10.6) k/uL RBC 2.20 L (3.80-5.40) m/uL Hgb 7.3 L (11.4-16.0) gm/dL Hct 19.5 L* (34.0-46.0) % MCV 88.4 (80.0-100.0) fL MCH 33.3 (25.0-35.0) pg MCHC 37.7 H (31.0-37.0) g/dL RDW 14.6 (11.5-15.5) % Plt Count 4 L* D (150-450) k/uL MPV 7.7 Differential Comment Manual Slide Review Performed Poikilocytosis Slight Sodium 133 L (137-145) mmol/L Potassium 3.6 (3.5-5.1) mmol/L Chloride 108 H (98-107) mmol/L Carbon Dioxide 20 L (22-30) mmol/L Anion Gap 5 mmol/L BUN 14 (7-17) mg/dL Creatinine 0.50 L (0.52-1.04) mg/dL Est GFR (CKD-EPI)AfAm >90 (>60 ml/min/1.73 sqM) Est GFR (CKD-EPI)NonAf >90 (>60 ml/min/1.73 sqM) Glucose 207 H (74-99) mg/dL Plasma Lactic Acid [place] 1.7 (0.7-2.0) mmol/L Calcium 7.3 L (8.4-10.2) mg/dL Magnesium 1.5 L (1.6-2.3) mg/dL Total Bilirubin 0.5 (0.2-1.3) mg/dL AST 13 L (14-36) U/L ALT 18 (4-34) U/L Alkaline Phosphatase 57 (38-126) U/L Total Protein 5.4 L (6.3-8.2) g/dL Albumin 2.9 L (3.5-5.0) g/dL Urine Color Urine Appearance (Clear) Urine pH (5.0-8.0) Ur Specific [place] (1.001-1.035) Urine Protein (Negative) Urine Glucose (UA) (Negative) Urine Ketones (Negative) Urine Blood (Negative) Urine Nitrite (Negative) Urine Bilirubin (Negative) Urine Urobilinogen (<2.0) mg/dL Ur Leukocyte Esterase (Negative) Urine RBC (0-5) /hpf Urine WBC (0-5) /hpf Ur Squamous Epith Cells (0-4) /hpf Urine Bacteria (None) /hpf Urine Mucus (None) /hpf Influenza Type A (PCR) (Not Detectd) Influenza Type B (PCR) (Not Detectd) RSV (PCR) (Not Detectd) SARS-CoV-2 (PCR) (Not Detectd) Blood Type Blood Type Recheck Bld Type Recheck Status Antibody Screen Transfuse Platelets Spec Expiration Date 12/27/21 12/27/21 12/28/21 Range/Units 21:40 22:47 00:33 WBC (3.8-10.6) k/uL RBC (3.80-5.40) m/uL Hgb (11.4-16.0) gm/dL Hct (34.0-46.0) % MCV (80.0-100.0) fL MCH (25.0-35.0) pg MCHC (31.0-37.0) g/dL RDW (11.5-15.5) % Plt Count (150-450) k/uL MPV Differential Comment Manual Slide Review Poikilocytosis Sodium (137-145) mmol/L Potassium (3.5-5.1) mmol/L Chloride (98-107) mmol/L Carbon Dioxide (22-30) mmol/L Anion Gap mmol/L BUN (7-17) mg/dL Creatinine (0.52-1.04) mg/dL Est GFR (CKD-EPI)AfAm (>60 ml/min/1.73 sqM) Est GFR (CKD-EPI)NonAf (>60 ml/min/1.73 sqM) Glucose (74-99) mg/dL Plasma Lactic Acid [place] (0.7-2.0) mmol/L Calcium (8.4-10.2) mg/dL Magnesium (1.6-2.3) mg/dL Total Bilirubin (0.2-1.3) mg/dL AST (14-36) U/L ALT (4-34) U/L Alkaline Phosphatase (38-126) U/L Total Protein (6.3-8.2) g/dL Albumin (3.5-5.0) g/dL Urine Color Yellow Urine Appearance Cloudy H (Clear) Urine pH 5.5 (5.0-8.0) Ur Specific [place] 1.022 (1.001-1.035) Urine Protein Trace H (Negative) Urine Glucose (UA) 2+ H (Negative) Urine Ketones Negative (Negative) Urine Blood Small H (Negative) Urine Nitrite Negative (Negative) Urine Bilirubin Negative (Negative) Urine Urobilinogen <2.0 (<2.0) mg/dL Ur Leukocyte Esterase Negative (Negative) Urine RBC 3 (0-5) /hpf Urine WBC 3 (0-5) /hpf Ur Squamous Epith Cells 3 (0-4) /hpf Urine Bacteria Rare H (None) /hpf Urine Mucus Rare H (None) /hpf Influenza Type A (PCR) Not Detected (Not Detectd) Influenza Type B (PCR) Not Detected (Not Detectd) RSV (PCR) Not Detected (Not Detectd) SARS-CoV-2 (PCR) Not Detected (Not Detectd) Blood Type Blood Type Recheck Bld Type Recheck Status Antibody Screen Transfuse Platelets 12-28-21 Spec Expiration Date 12/28/21 Range/Units 00:33 WBC (3.8-10.6) k/uL RBC (3.80-5.40) m/uL Hgb (11.4-16.0) gm/dL Hct (34.0-46.0) % MCV (80.0-100.0) fL MCH (25.0-35.0) pg MCHC (31.0-37.0) g/dL RDW (11.5-15.5) % Plt Count (150-450) k/uL MPV Differential Comment Manual Slide Review Poikilocytosis Sodium (137-145) mmol/L Potassium (3.5-5.1) mmol/L Chloride (98-107) mmol/L Carbon Dioxide (22-30) mmol/L Anion Gap mmol/L BUN (7-17) mg/dL Creatinine (0.52-1.04) mg/dL Est GFR (CKD-EPI)AfAm (>60 ml/min/1.73 sqM) Est GFR (CKD-EPI)NonAf (>60 ml/min/1.73 sqM) Glucose (74-99) mg/dL Plasma Lactic Acid [place] (0.7-2.0) mmol/L Calcium (8.4-10.2) mg/dL Magnesium (1.6-2.3) mg/dL Total Bilirubin (0.2-1.3) mg/dL AST (14-36) U/L ALT (4-34) U/L Alkaline Phosphatase (38-126) U/L Total Protein (6.3-8.2) g/dL Albumin (3.5-5.0) g/dL Urine Color Urine Appearance (Clear) Urine pH (5.0-8.0) Ur Specific [place] (1.001-1.035) Urine Protein (Negative) Urine Glucose (UA) (Negative) Urine Ketones (Negative) Urine Blood (Negative) Urine Nitrite (Negative) Urine Bilirubin (Negative) Urine Urobilinogen (<2.0) mg/dL Ur Leukocyte Esterase (Negative) Urine RBC (0-5) /hpf Urine WBC (0-5) /hpf Ur Squamous Epith Cells (0-4) /hpf Urine Bacteria (None) /hpf Urine Mucus (None) /hpf Influenza Type A (PCR) (Not Detectd) Influenza Type B (PCR) (Not Detectd) RSV (PCR) (Not Detectd) SARS-CoV-2 (PCR) (Not Detectd) Blood Type O Positive Blood Type Recheck O Pos Bld Type Recheck Status No Antibody Screen NEGATIVE Transfuse Platelets Spec Expiration Date 12/31/20212332 - EKG Data -: EKG Interpreted by Me EKG Comments: 12-lead Electrocardiogram Interpretation Note EKG was reviewed and interpreted by myself. 12-lead ECG performed at 2128 is i nterpreted by me as revealing sinus tachycardia at a rate of 118 beats per minute. [place] is normal. RI interval is 132 ms, QRS duration is 81 ms, QTc is 393 ms.. There were no ST or T wave abnormalities to suggest myocardial ischemia or injury. R wave progression across the precordium was satisfactory. By my interpretation this EKG is non-diagnostic for acute ischemia. When compared with EKG from November 2021, no significant change. Critical Care Time Critical Care Time: Yes Total Critical Care Time: 35 Critical Care Time: Upon my evaluation, this patient had a high probability of imminent or life- threatening deterioration due to neutropenic fever in the setting of recent c hemotherapy, pancytopenia, platelet transfusion, hypomagnesemia, neutropenic gastroenteritis versus colitis, which required my direct attention, intervention, and personal management. I have personally provided 35 minutes of critical care time exclusive of time spent on separately billable procedures. Time includes review of laboratory data, radiology results, discussion with consultants, and monitoring for potential decompensation. Interventions were performed as documented in my note. Disposition Clinical Impression: Neutropenic fever, Colitis, Diarrhea, Cancer, History of chemotherapy, Pancytopenia, Thrombocytopenia, Hypomagnesemia, Gastroenteritis Disposition: ADMITTED IP TO THIS HOSP Condition: Serious Time of Disposition: 23:00
[2021-12-27 22:25] LABS: ALT 18 U/L (4-34); AST 13 U/L (14-36); Alkaline Phosphatase 57 U/L (38-126); Magnesium 1.5 mg/dL (1.6-2.3); Total Bilirubin 0.5 mg/dL (0.2-1.3)
[2021-12-27 22:38] LABS: WBC 0.2 k/uL (3.8-10.6)
[2021-12-27 22:39] LABS: HCT 19.5 % (34.0-46.0); Platelet Count 4 k/uL (150-450)
[2021-12-27] MEDS ORDERED: MAGNESIUM SULFATE-D5W PMX 1 GM in DEXTROSE/WATER 1 100ML.BAG IVPB ONE (22:39)
[2021-12-27 22:41] LABS: African American GFR (CKD) >90 (>60 ml/min/1.73 sqM); Albumin 2.9 g/dL (3.5-5.0); Anion Gap 5 mmol/L; Blood Urea Nitrogen 14 mg/dL (7-17); Calcium 7.3 mg/dL (8.4-10.2); Carbon Dioxide 20 mmol/L (22-30); Chloride 108 mmol/L (98-107); Glucose 207 mg/dL (74-99); Non-African American GFR(CKD) >90 (>60 ml/min/1.73 sqM); Potassium 3.6 mmol/L (3.5-5.1); Sodium 133 mmol/L (137-145); Total Protein 5.4 g/dL (6.3-8.2)
[2021-12-27] MEDS ORDERED: VANCOMYCIN IV PER PHARMACY 1 EACH MISC MISCELLANE PRN (22:51)
[2021-12-27] MEDS ORDERED: VANCOMYCIN 1,750 MG in SODIUM CHLORIDE 0.9% 500 ML 500 ML IVPB ONE (23:00)
[2021-12-27] MEDS ORDERED: CEFEPIME 2 GM in SODIUM CHLORIDE 0.9% 100 ML IVPB ONE (23:00)
--- NOTE | 2021-12-27 23:03 | XR ---
EXAMINATION TYPE: XR chest 2V DATE OF EXAM: 12/27/2021 COMPARISON: 12/06/2021 HISTORY: Fever TECHNIQUE: 2 views FINDINGS: Heart and mediastinum are normal. Lungs are clear. Diaphragm is normal. Bony thorax is inta ct. IMPRESSION: Normal chest. No change.
[2021-12-27 23:44] LABS: Appearance,Urine Cloudy (Clear); Bacteria,Urine Rare /hpf; Bilirubin,Urine Negative (Negative); Blood,Urine Small (Negative); Color,Urine Yellow; Glucose,Urine (UA) 2+ (Negative); Ketones,Urine Negative (Negative); Leukocyte Esterase,Urine Negative (Negative); Mucus,Urine Rare /hpf; Nitrite,Urine Negative (Negative); PH, Urine 5.5 (5.0-8.0); Protein,Urine Trace (Negative); RBC,Urine 3 /hpf (0-5); Specific Gravity,Urine 1.022 (1.001-1.035); Squamous Epithelial Cell,Urine 3 /hpf (0-4); Urobilinogen,Urine <2.0 mg/dL (<2.0); WBC,Urine 3 /hpf (0-5)
--- NOTE | 2021-12-28 00:30 | CT ---
EXAMINATION TYPE: CT abdomen pelvis w con DATE OF EXAM: 12/28/2021 COMPARISON: 12/08/2021 HISTORY: ABD PAIN,DIARRHEA, NEUTROPENIC FEVER CT DLP: 1687.1 mGycm Automated exposure control for dose reduction was used. CONTRAST: Performed with IV Contrast, patient injected with 100 mL of Isovue 300. The lung bases are clear. No pleural effusion. Heart size is normal. No pericardial effusion. There i s hiatal hernia. There are clips from cholecystectomy. Liver spleen and stomach appear intact. No williamson creatic mass. The bile duct are not dilated. There is no adrenal mass. Kidneys show satisfactory contrast opacification. No hydronephrosis. Ureter s are not dilated. No retroperitoneal adenopathy. Bladder distends smoothly. No inguinal hernia. No f ree fluid in the pelvis. No pelvic mass. There is no mesenteric edema. No ascites or free air. No sign of a bowel obstruction. There are some loops of proximal small bowel with wall thickening. The terminal ileum appears normal. There is short appendix which appears normal. The lumbar vertebrae have normal alignment. No compression fracture. There is multilevel spondylotic changes in the lumbar spine with disc space narrowing and spur formation and vacuum disc. The bony pe lvis is intact. No compression fracture. The hip joints are intact. IMPRESSION: There is some proximal jejunal wall thickening that could be gastroenteritis. This appears new compar ed to the old exam. Minimal colonic diverticulosis. Normal appendix.
[2021-12-28] MEDS ORDERED: NALOXONE 0.4 MG/ML 1 ML VIAL IV PRN (00:34)
[2021-12-28] MEDS ORDERED: ONDANSETRON 4 MG/2 ML VIAL IVP STA (01:07)
[2021-12-28] MEDS: ACYCLOVIR 200 MG CAP PO SCH ×3 (01:13→21:12)
[2021-12-28] MEDS ORDERED: IBUPROFEN 400 MG TAB PO PRN (02:32)
[2021-12-28] MEDS: VERAPAMIL SR 120 MG TABLET.ER PO SCH ×2 (04:15→21:39)
--- NOTE | 2021-12-28 04:32 | ED ---
Medical Decision Making - Lab Data Result diagrams: 12/27/21 21:40 12/27/21 21:40 Lab Results 12/27/21 12/27/21 12/27/21 Range/Units 21:40 21:40 21:40 WBC 0.2 L* (3.8-10.6) k/uL RBC 2.20 L (3.80-5.40) m/uL Hgb 7.3 L (11.4-16.0) gm/dL Hct 19.5 L* (34.0-46.0) % MCV 88.4 (80.0-100.0) fL MCH 33.3 (25.0-35.0) pg MCHC 37.7 H (31.0-37.0) g/dL RDW 14.6 (11.5-15.5) % Plt Count 4 L* D (150-450) k/uL MPV 7.7 Differential Comment Manual Slide Review Performed Poikilocytosis Slight Sodium 133 L (137-145) mmol/L Potassium 3.6 (3.5-5.1) mmol/L Chloride 108 H (98-107) mmol/L Carbon Dioxide 20 L (22-30) mmol/L Anion Gap 5 mmol/L BUN 14 (7-17) mg/dL Creatinine 0.50 L (0.52-1.04) mg/dL Est GFR (CKD-EPI)AfAm >90 (>60 ml/min/1.73 sqM) Est GFR (CKD-EPI)NonAf >90 (>60 ml/min/1.73 sqM) Glucose 207 H (74-99) mg/dL Plasma Lactic Acid [place] 1.7 (0.7-2.0) mmol/L Calcium 7.3 L (8.4-10.2) mg/dL Magnesium 1.5 L (1.6-2.3) mg/dL Total Bilirubin 0.5 (0.2-1.3) mg/dL AST 13 L (14-36) U/L ALT 18 (4-34) U/L Alkaline Phosphatase 57 (38-126) U/L Total Protein 5.4 L (6.3-8.2) g/dL Albumin 2.9 L (3.5-5.0) g/dL Urine Color Urine Appearance (Clear) Urine pH (5.0-8.0) Ur Specific [place] (1.001-1.035) Urine Protein (Negative) Urine Glucose (UA) (Negative) Urine Ketones (Negative) Urine Blood (Negative) Urine Nitrite (Negative) Urine Bilirubin (Negative) Urine Urobilinogen (<2.0) mg/dL Ur Leukocyte Esterase (Negative) Urine RBC (0-5) /hpf Urine WBC (0-5) /hpf Ur Squamous Epith Cells (0-4) /hpf Urine Bacteria (None) /hpf Urine Mucus (None) /hpf Influenza Type A (PCR) (Not Detectd) Influenza Type B (PCR) (Not Detectd) RSV (PCR) (Not Detectd) SARS-CoV-2 (PCR) (Not Detectd) Blood Type Blood Type Recheck Bld Type Recheck Status Antibody Screen Transfuse Platelets Spec Expiration Date 12/27/21 12/27/21 12/28/21 Range/Units 21:40 22:47 00:33 WBC (3.8-10.6) k/uL RBC (3.80-5.40) m/uL Hgb (11.4-16.0) gm/dL Hct (34.0-46.0) % MCV (80.0-100.0) fL MCH (25.0-35.0) pg MCHC (31.0-37.0) g/dL RDW (11.5-15.5) % Plt Count (150-450) k/uL MPV Differential Comment Manual Slide Review Poikilocytosis Sodium (137-145) mmol/L Potassium (3.5-5.1) mmol/L Chloride (98-107) mmol/L Carbon Dioxide (22-30) mmol/L Anion Gap mmol/L BUN (7-17) mg/dL Creatinine (0.52-1.04) mg/dL Est GFR (CKD-EPI)AfAm (>60 ml/min/1.73 sqM) Est GFR (CKD-EPI)NonAf (>60 ml/min/1.73 sqM) Glucose (74-99) mg/dL Plasma Lactic Acid [place] (0.7-2.0) mmol/L Calcium (8.4-10.2) mg/dL Magnesium (1.6-2.3) mg/dL Total Bilirubin (0.2-1.3) mg/dL AST (14-36) U/L ALT (4-34) U/L Alkaline Phosphatase (38-126) U/L Total Protein (6.3-8.2) g/dL Albumin (3.5-5.0) g/dL Urine Color Yellow Urine Appearance Cloudy H (Clear) Urine pH 5.5 (5.0-8.0) Ur Specific [place] 1.022 (1.001-1.035) Urine Protein Trace H (Negative) Urine Glucose (UA) 2+ H (Negative) Urine Ketones Negative (Negative) Urine Blood Small H (Negative) Urine Nitrite Negative (Negative) Urine Bilirubin Negative (Negative) Urine Urobilinogen <2.0 (<2.0) mg/dL Ur Leukocyte Esterase Negative (Negative) Urine RBC 3 (0-5) /hpf Urine WBC 3 (0-5) /hpf Ur Squamous Epith Cells 3 (0-4) /hpf Urine Bacteria Rare H (None) /hpf Urine Mucus Rare H (None) /hpf Influenza Type A (PCR) Not Detected (Not Detectd) Influenza Type B (PCR) Not Detected (Not Detectd) RSV (PCR) Not Detected (Not Detectd) SARS-CoV-2 (PCR) Not Detected (Not Detectd) Blood Type Blood Type Recheck Bld Type Recheck Status Antibody Screen Transfuse Platelets 12-28-21 Spec Expiration Date 12/28/21 Range/Units 00:33 WBC (3.8-10.6) k/uL RBC (3.80-5.40) m/uL Hgb (11.4-16.0) gm/dL Hct (34.0-46.0) % MCV (80.0-100.0) fL MCH (25.0-35.0) pg MCHC (31.0-37.0) g/dL RDW (11.5-15.5) % Plt Count (150-450) k/uL MPV Differential Comment Manual Slide Review Poikilocytosis Sodium (137-145) mmol/L Potassium (3.5-5.1) mmol/L Chloride (98-107) mmol/L Carbon Dioxide (22-30) mmol/L Anion Gap mmol/L BUN (7-17) mg/dL Creatinine (0.52-1.04) mg/dL Est GFR (CKD-EPI)AfAm (>60 ml/min/1.73 sqM) Est GFR (CKD-EPI)NonAf (>60 ml/min/1.73 sqM) Glucose (74-99) mg/dL Plasma Lactic Acid [place] (0.7-2.0) mmol/L Calcium (8.4-10.2) mg/dL Magnesium (1.6-2.3) mg/dL Total Bilirubin (0.2-1.3) mg/dL AST (14-36) U/L ALT (4-34) U/L Alkaline Phosphatase (38-126) U/L Total Protein (6.3-8.2) g/dL Albumin (3.5-5.0) g/dL Urine Color Urine Appearance (Clear) Urine pH (5.0-8.0) Ur Specific [place] (1.001-1.035) Urine Protein (Negative) Urine Glucose (UA) (Negative) Urine Ketones (Negative) Urine Blood (Negative) Urine Nitrite (Negative) Urine Bilirubin (Negative) Urine Urobilinogen (<2.0) mg/dL Ur Leukocyte Esterase (Negative) Urine RBC (0-5) /hpf Urine WBC (0-5) /hpf Ur Squamous Epith Cells (0-4) /hpf Urine Bacteria (None) /hpf Urine Mucus (None) /hpf Influenza Type A (PCR) (Not Detectd) Influenza Type B (PCR) (Not Detectd) RSV (PCR) (Not Detectd) SARS-CoV-2 (PCR) (Not Detectd) Blood Type O Positive Blood Type Recheck O Pos Bld Type Recheck Status No Antibody Screen NEGATIVE Transfuse Platelets Spec Expiration Date 12/31/20212332 Disposition Clinical Impression: Neutropenic fever, Colitis, Diarrhea, Cancer, History of chemotherapy, Pancytopenia, Thrombocytopenia, Hypomagnesemia, Gastroenteritis Disposition: ADMITTED IP TO THIS HOSP Condition: Serious Procedures - Sepsis Sepsis Focused Exam #1 Time Sepsis Criteria Met: 23:00 Sepsis Focused Exam Date: 12/28/21 Sepsis Focused Exam Time: 03:00 Sepsis Focused Exam Complete: Yes Vital Signs & RN Notes Reviewed: Yes Capillary Refill: < 2 Seconds: Fingers, Toes Peripheral Pulses: Normal: Radial (R), Radial (L) Skin Color: Normal for Patient Respiratory Exam: normal lung sounds Cardiovascular Exam: tachycardia
[2021-12-28] MEDS: SODIUM CHLORIDE 0.9% 1,000 ML IV SCH ×3 (04:38→21:12)
[2021-12-28] MEDS ORDERED: SODIUM CHLORIDE 0.9% 1,000 ML IV STA (06:31)
[2021-12-28] MEDS: CEFEPIME 2 GM in SODIUM CHLORIDE 0.9% 100 ML IVPB SCH ×2 (11:58→21:12)
[2021-12-28] MEDS: FLUCONAZOLE 100 MG TAB PO SCH (11:59)
[2021-12-28] MEDS: metFORMIN 500 MG TAB PO SCH (11:59)
[2021-12-28] MEDS: VANCOMYCIN 1,750 MG in SODIUM CHLORIDE 0.9% 500 ML 500 ML IVPB SCH (13:02)
--- NOTE | 2021-12-28 13:51 | P.HPIM ---
History of Present Illness H&P Date: 12/28/21 History of present illness; Patient is a very pleasant 65-year-old female with a past medical history of hypertension, GERD, diabetes mellitus, and AML who was recently admitted under the hematology/oncology team undergoing induction chemotherapeutic treatment with Cytarabine from 12/16 till12/24. Patient was all right until yesterday evening when she started noticing fevers. Fevers were high-grade. Patient denies any shortness of breath. There was no complain of any cough. Patient did notice she was having diarrhea which was nonbloody. Patient denied any abdominal pain. She denied any urinary symptoms. Patient was empirically on ciprofloxacin, fluconazole, acyclovir. Patient was worked up in the ER, initial blood work showed WBC of 0.2, hemoglobin of 7.3 and platelet count of [address] abdomen and pelvis done showed some proximal jejunal wall thickening that could be gastroenteritis, there was no evidence of an diverticulitis. Patient was started on broad-spectrum antibiotics and was admitted to hospitalist service REVIEW OF SYSTEMS: CONSTITUTIONAL: no fatigue. HEENT: No recent visual problems or hearing problems. Denied any sore throat. CARDIOVASCULAR: No chest pain, orthopnea, PND, no palpitations, no syncope. PULMONARY: No shortness of breath, no cough, no hemoptysis. GASTROINTESTINAL: no nausea, no vomiting, no abdominal pain. NEUROLOGICAL: No headaches, no weakness, no numbness. HEMATOLOGICAL: Denies any bleeding or petechiae. GENITOURINARY: Denies any burning micturition, frequency, or urgency. MUSCULOSKELETAL/RHEUMATOLOGICAL: Denies any joint pain, swelling, or any muscle pain. ENDOCRINE: Denies any polyuria or polydipsia. The rest of the 14-point review of systems is negative. PHYSICAL EXAMINATION: GENERAL: The patient is alert and oriented x3, not in any acute distress. Well developed, well nourished. HEENT: Pupils are round and equally reacting to light. EOMI. No scleral icterus. No conjunctival pallor. Normocephalic, atraumatic. No pharyngeal erythema. No thyromegaly. CARDIOVASCULAR: S1 and S2 present. No murmurs, rubs, or gallops. PULMONARY: Chest is clear to auscultation, no wheezing or crackles. ABDOMEN: Soft, nontender, nondistended, normoactive bowel sounds. No palpable organomegaly. MUSCULOSKELETAL: No joint swelling or deformity. EXTREMITIES: No cyanosis, clubbing, or pedal edema. NEUROLOGICAL: Gross neurological examination did not reveal any focal deficits. SKIN: No rashes. Assessment and plan Neutropenic fevers Pancytopenia History of acute myeloid leukemia Diabetes mellitus Hypertension Hypomagnesemia Plan; Monitor CBC Follow-up on blood cultures Bleeding precautions Neutropenic precautions Continue broad-spectrum antibiotics in the form of cefepime and vancomycin Continue acyclovir Consult ID. Hematology oncology consulted Past Medical History Past Medical History: Cancer, Diabetes Mellitus, GERD/Reflux, Hypertension Additional Past Medical History / Comment(s): Acute myeloid leukemia/induction chemo 12/16/21 at [facility], NIDDM type II, neuropathy bilateral feet, palpitations, enlarged heart, benign lung nodules, gastric ulcer, irregular bowel movements, UTIs, uterine fibroids, everything tastes metallic. History of Any Multi-Drug Resistant Organisms: None Reported Past Surgical History: Section, Cholecystectomy, Hernia Repair, Orthopedic Surgery Additional Past Surgical History / Comment(s): 12/10/21 BMA, double lumen PICC, cholecystectomy/umbilical hernia repair, open repair umbilical hernia/partial omenectomy, surgery to remove uterine fibroids, L oophorectomy, R partial oophorectomy, surgery for nasal fracture, surgery to remove tailbone cysts, R shoulder surgery. Past Anesthesia/Blood Transfusion Reactions: Previous Problems w/ Anesthesia, Postoperative Nausea & Vomiting (PONV) Additional Past Anesthesia/Blood Transfusion Reaction / Comment(s): "very hard coming out of anesthesia" Smoking Status: Never smoker - Past Family History Father Family Medical History: Congestive Heart Failure (CHF) Additional Family Medical History / Comment(s): at age 83, possibly from heart issues- unsure. Mother Family Medical History: CVA/TIA, Deep Vein Thrombosis (DVT) Additional Family Medical History / Comment(s): deseased at age 77 from cva Medications and Allergies Home Medications Medication Instructions Recorded Confirmed Type [place]-3 Fatty Acids/Fish Oil [Fish 1 cap PO DAILY 01/30/18 12/28/21 History Oil 1,000 mg Softgel] Verapamil HCl [Verelan Pm] 100 mg PO HS 01/30/18 12/28/21 History metFORMIN HCL [Glucophage] 1,000 mg PO DAILY 01/30/18 12/28/21 History Acyclovir [Zovirax] 400 mg PO BID #42 tablet 12/23/21 12/28/21 Rx Ciprofloxacin HCl [Cipro] 500 mg PO Q12HR 1 Days #42 tab 12/23/21 12/28/21 Rx Fluconazole [Diflucan] 100 mg PO DAILY #21 tab 12/23/21 12/28/21 Rx OLANZapine [ZyPREXA] 2.5 mg PO HS #30 tablet 12/23/21 12/28/21 Rx Ondansetron [Zofran] 4 mg PO Q4HR PRN #45 tab 12/23/21 12/28/21 Rx Allergies Allergy/AdvReac Type Severity Reaction Status Date / Time hydrocodone [From Vicodin] AdvReac Nausea & Verified 12/28/21 07:11 Vomiting & Diarrhea latex AdvReac Itching Verified 12/28/21 07:11 Physical Exam Vitals: Vital Signs Temp Pulse Resp BP Pulse Ox 12/28/21 06:40 97.9 F 120 H 16 101/53 100 12/28/21 04:55 99.3 F 137 H 103/53 97 12/28/21 03:45 99.0 F 130 H 16 130/45 100 12/28/21 03:00 99.9 F H 130 H 18 124/70 96 12/28/21 02:40 100.0 F H 130 H 16 143/103 100 12/28/21 02:22 100.0 F H 120 H 16 133/88 98 12/28/21 01:59 99.9 F H 12/28/21 01:48 108 H 14 130/45 100 12/27/21 21:12 102.5 F H 129 H 20 117/65 98 Intake and Output 12/27/21 12/28/21 12/28/21 22:59 06:59 14:59 Intake Total 250 Balance 250 Intake: Blood Product 250 Platelet Pheresis Pas 250 Psoralen Unit [id number] Other: Weight 108.862 kg 108.862 kg Results CBC & Chem 7: 12/27/21 21:40 12/27/21 21:40 Labs: Abnormal Lab Results - Last 24 Hours (Table) 12/27/21 12/27/21 12/27/21 Range/Units 21:40 21:40 22:47 WBC 0.2 L* (3.8-10.6) k/uL RBC 2.20 L (3.80-5.40) m/uL Hgb 7.3 L (11.4-16.0) gm/dL Hct 19.5 L* (34.0-46.0) % MCHC 37.7 H (31.0-37.0) g/dL Plt Count 4 L* D (150-450) k/uL Sodium 133 L (137-145) mmol/L Chloride 108 H (98-107) mmol/L Carbon Dioxide 20 L (22-30) mmol/L Creatinine 0.50 L (0.52-1.04) mg/dL Glucose 207 H (74-99) mg/dL Calcium 7.3 L (8.4-10.2) mg/dL Magnesium 1.5 L (1.6-2.3) mg/dL AST 13 L (14-36) U/L Total Protein 5.4 L (6.3-8.2) g/dL Albumin 2.9 L (3.5-5.0) g/dL Urine Appearance Cloudy H (Clear) Urine Protein Trace H (Negative) Urine Glucose (UA) 2+ H (Negative) Urine Blood Small H (Negative) Urine Bacteria Rare H (None) /hpf Urine Mucus Rare H (None) /hpf Thrombosis Risk Factor Assmnt - Choose All That Apply Any of the Below Risk Factors Present?: Yes Each Factor Represents 1 point: Obesity (BMI >25) Other Risk Factors: Yes Each Risk Factor Represents 2 Points: Malignancy Each Risk Factor Represents 3 Points: Family history of DVT/PE Other congenital or acquired thrombophilia - If yes, enter type in comment: No Thrombosis Risk Factor Assessment Total Risk Factor Score: 6 Thrombosis Risk Factor Assessment Level: High Risk
[2021-12-28] MEDS: ACETAMINOPHEN TAB 325 MG TAB PO PRN (16:49)
--- NOTE | 2021-12-28 19:07 | P.CONS ---
History of Present Illness - Reason for Consult Consult date: 12/28/21 Neutropenic fever Requesting physician: Abiel Dowell - Chief Complaint Fever - History of Present Illness Mrs. Smith is a very pleasant 66-year-old female patient of ours, Past medical history including type 2 diabetes, hypertension, recently diagnosed with AML from bone marrow biopsy and aspirate done on 12/10/21. Patient presented with generalized complaints, feeling unwell, pancytopenia. Ultimately, she was diagnosed with AML. She received induction chemotherapy 7+3, completing that last Mmisxybv64/17/22. Patient did well for a few days, she monitored her temperature as she was instructed to do. Unfortunately, she developed fever up over 101, she returned to the hospital for assessment. 102.5 MAXIMUM TEMPERATURE, tachycardia noted. Patient is not in any significant pain, general malaise. She is having diarrhea with every urination. She is reporting some postnasal drip and feeling like she has a "ear ache". Denies headache, dizziness, oral irritation, sore throat, unusual cough, chest pain, nausea, she is experiencing some abdominal discomfort in the middle of her abdomen, no dysuria, hematuria, watery stool, cramping, rectal pain, blood, no swelling in the legs. She reports that she did have a fall, denies hitting her head. Platelets 4000, she has been transfused with irradiated blood products. WBC 0.2, hemoglobin 7.3. Influenza and Covid testing negative Review of Systems 10 point review of systems is negative except as stated in HPI Past Medical History Past Medical History: Cancer, Diabetes Mellitus, GERD/Reflux, Hypertension Additional Past Medical History / Comment(s): Acute myeloid leukemia/induction chemo 12/16/21 at [facility], NIDDM type II, neuropathy bilateral feet, palpitations, enlarged heart, benign lung nodules, gastric ulcer, irregular bowel movements, UTIs, uterine fibroids, everything tastes metallic. History of Any Multi-Drug Resistant Organisms: None Reported Past Surgical History: Section, Cholecystectomy, Hernia Repair, Orthopedic Surgery Additional Past Surgical History / Comment(s): 12/10/21 BMA, double lumen PICC, cholecystectomy/umbilical hernia repair, open repair umbilical hernia/partial omenectomy, surgery to remove uterine fibroids, L oophorectomy, R partial oophorectomy, surgery for nasal fracture, surgery to remove tailbone cysts, R shoulder surgery. Past Anesthesia/Blood Transfusion Reactions: Previous Problems w/ Anesthesia, Postoperative Nausea & Vomiting (PONV) Additional Past Anesthesia/Blood Transfusion Reaction / Comm: "very hard coming out of anesthesia" Smoking Status: Never smoker - Past Family History Father Family Medical History: Congestive Heart Failure (CHF) Additional Family Medical History / Comment(s): at age 83, possibly from heart issues- unsure. Mother Family Medical History: CVA/TIA, Deep Vein Thrombosis (DVT) Additional Family Medical History / Comment(s): deseased at age 77 from cva Medications and Allergies Home Medications Medication Instructions Recorded Confirmed Type [place]-3 Fatty Acids/Fish Oil [Fish 1 cap PO DAILY 01/30/18 12/28/21 History Oil 1,000 mg Softgel] Verapamil HCl [Verelan Pm] 100 mg PO HS 01/30/18 12/28/21 History metFORMIN HCL [Glucophage] 1,000 mg PO DAILY 01/30/18 12/28/21 History Acyclovir [Zovirax] 400 mg PO BID #42 tablet 12/23/21 12/28/21 Rx Ciprofloxacin HCl [Cipro] 500 mg PO Q12HR 1 Days #42 tab 12/23/21 12/28/21 Rx Fluconazole [Diflucan] 100 mg PO DAILY #21 tab 12/23/21 12/28/21 Rx OLANZapine [ZyPREXA] 2.5 mg PO HS #30 tablet 12/23/21 12/28/21 Rx Ondansetron [Zofran] 4 mg PO Q4HR PRN #45 tab 12/23/21 12/28/21 Rx Allergies Allergy/AdvReac Type Severity Reaction Status Date / Time hydrocodone [From Vicodin] AdvReac Nausea & Verified 12/28/21 07:11 Vomiting & Diarrhea latex AdvReac Itching Verified 12/28/21 07:11 Physical Exam Vitals: Vital Signs Temp Pulse Pulse Resp BP BP Pulse Ox 12/28/21 17:53 99.3 F 12/28/21 17:22 102.3 F H 109 H 16 143/67 98 12/28/21 11:40 99.2 F 105 H 20 121/76 100 12/28/21 06:40 97.9 F 120 H 16 101/53 100 12/28/21 04:55 99.3 F 137 H 103/53 97 12/28/21 03:45 99.0 F 130 H 16 130/45 100 12/28/21 03:00 99.9 F H 130 H 18 124/70 96 12/28/21 02:40 100.0 F H 130 H 16 143/103 100 12/28/21 02:22 100.0 F H 120 H 16 133/88 98 12/28/21 01:59 99.9 F H 12/28/21 01:48 108 H 14 130/45 100 12/27/21 21:12 102.5 F H 129 H 20 117/65 98 Intake and Output 12/28/21 12/28/21 12/28/21 06:59 14:59 22:59 Intake Total 250 200 Balance 250 200 Intake: Intake, IV Titration 200 Amount Sodium Chloride 0.9% 1, 200 000 ml @ 100 mls/hr IV . Q10H [facility] Rx#:[id number] Blood Product 250 Platelet Pheresis Pas 250 Psoralen Unit [id number] Other: Weight 108.862 kg - Constitutional General appearance: average body habitus, cooperative, no acute distress - EENT Eyes: anicteric sclerae, EOMI ENT: hearing grossly normal, normal oropharynx - Neck Neck: no lymphadenopathy - Respiratory Respiratory: bilateral: CTA - Cardiovascular Tachycardia Heart sounds: normal: S1, S2 Abnormal Heart Sounds: no systolic murmur, no diastolic murmur, no rub, no S3 Gallop, no S4 Gallop, no click, no other leg Peripheral Edema: bilateral: None - Gastrointestinal General gastrointestinal: no absent bowel sounds, no decreased bowel sounds, no distended, no hepatomegaly, no hyperactive bowel sounds, normal bowel sounds, no organomegaly, no rigid, no scaphoid, soft, no splenomegaly, tenderness, no umbilical hernia, no ventral hernia Localized gastrointestinal: tender: epigastric periumbilical - Integumentary Integumentary: pale - Neurologic Neurologic: CNII-XII intact - Musculoskeletal Musculoskeletal: generalized weakness, strength equal bilaterally - Psychiatric Psychiatric: A&O x's 3, appropriate affect, intact judgment & insight Results CBC & Chem 7: 12/27/21 21:40 12/27/21 21:40 Labs: Abnormal Lab Results - Last 24 Hours (Table) 12/27/21 12/27/21 12/27/21 Range/Units 21:40 21:40 22:47 WBC 0.2 L* (3.8-10.6) k/uL RBC 2.20 L (3.80-5.40) m/uL Hgb 7.3 L (11.4-16.0) gm/dL Hct 19.5 L* (34.0-46.0) % MCHC 37.7 H (31.0-37.0) g/dL Plt Count 4 L* D (150-450) k/uL Sodium 133 L (137-145) mmol/L Chloride 108 H (98-107) mmol/L Carbon Dioxide 20 L (22-30) mmol/L Creatinine 0.50 L (0.52-1.04) mg/dL Glucose 207 H (74-99) mg/dL Calcium 7.3 L (8.4-10.2) mg/dL Magnesium 1.5 L (1.6-2.3) mg/dL AST 13 L (14-36) U/L Total Protein 5.4 L (6.3-8.2) g/dL Albumin 2.9 L (3.5-5.0) g/dL Urine Appearance Cloudy H (Clear) Urine Protein Trace H (Negative) Urine Glucose (UA) 2+ H (Negative) Urine Blood Small H (Negative) Urine Bacteria Rare H (None) /hpf Urine Mucus Rare H (None) /hpf Chest x-ray: report reviewed CT scan - abdomen: report reviewed CT scan - pelvis: report reviewed Assessment and Plan (1) Neutropenic fever Current Visit: Yes Status: Acute Code(s): D70.9 - NEUTROPENIA, UNSPECIFIED; R50.81 - FEVER PRESENTING WITH CONDITIONS CLASSIFIED ELSEWHERE SNOMED Code(s): 930639743 (2) Pancytopenia Current Visit: Yes Status: Acute Priority: High Code(s): D61.818 - OTHER PANCYTOPENIA SNOMED Code(s): 411651976 (3) Acute myeloid leukemia Current Visit: No Status: Acute Priority: High Code(s): C92.00 - ACUTE MYELOBLASTIC LEUKEMIA, NOT HAVING ACHIEVED REMISSION SNOMED Code(s): 10372981 Plan: Pancultures have been collected. Empiric antibiotics initiated, Infectious Disease consulted Transfuse with irradiated blood products only. Transfuse for platelets less than 10,000, hemoglobin less than 7. No G-CSF, patient is not confirmed remission Based on imaging and exam, suspect a degree of neutropenic colitis. Nothing by mouth other than ice and sips of water for medications Patient encouraged to contact staff if she needs to use the bathroom, NOT to get up alone Salt and soda, oral care attests: I have seen and examined patient, performed H&P, developed impression and plan of care. Discussed with dictator. Agree with documentation, dictated as a scribe
[2021-12-28] MEDS: OLANZapine 2.5 MG TAB PO SCH (21:12)
[2021-12-28] MEDS: MAG HYDROX/AL HYDROX/SIMETH 30 ML, diphenhydrAMINE ELIXIR 75 MG, LIDOCAINE VISCOUS 2% 3... PO SCH ×3 (21:39)
[2021-12-28] MEDS: SALT AND SODA MOUTHWASH 1,000 ML PO SCH (21:39)
--- NOTE | 2021-12-28 23:40 | P.CONS ---
History of Present Illness - Reason for Consult Consult date: 12/28/21 Neutropenic fever Requesting physician: Tj Quiles - Chief Complaint Fever 1 day - History of Present Illness Patient is a 66-year-old female with a past medical history significant for hypertension diabetes mellitus with recent diagnosis of acute myeloid leukemia in this patient was admitted to the hospital for induction chemotherapy from 12/16/2021 until 12/24/2021 through the left arm PICC line that was placed before the chemotherapy patient was advised to keep a track of her fever patient mention she was doing okay until last evening when she did spike a fever of 102 F for which the patient present to the hospital patient denies having any headache or URI symptoms denies having any chest pain or shortness but did have occasional cough but no sputum production denies have any nausea no vomiting, patient complaining of some epigastric abdominal pain morphine the laking 3- and radiation patient has been complaining of some diarrhea but no blood or mucus in the stool on presentation to the hospital patient did have a fever of 102.5 F the patient was tachycardic but not hypoxic or need for supplemental oxygen, patient did have white count of 0.2 platelet count was 4 creatinine 0.50 liver enzymes were normal urine was negative influenza SARS-CoV-2 and RSV PCR was negative patient did have a chest x-ray CT abdominal pelvis some proximal jejunal wall thickening could be gastroenteritis patient was admitted to hospital started on cefepime and vancomycin infectious disease was consulted for further management of antibiotic therapy Review of Systems Positive point has been mentioned in the HPI rest of the systems are negative Past Medical History Past Medical History: Cancer, Diabetes Mellitus, GERD/Reflux, Hypertension Additional Past Medical History / Comment(s): [facility], NIDDM type II, neuropathy bilateral feet, palpitations, enlarged heart, benign lung nodules, gastric ulcer, irregular bowel movements, UTIs, uterine fibroids, everything tastes metallic. History of Any Multi-Drug Resistant Organisms: None Reported Past Surgical History: Section, Cholecystectomy, Hernia Repair, Orthopedic Surgery Additional Past Surgical History / Comment(s): 12/10/21 BMA, double lumen PICC, cholecystectomy/umbilical hernia repair, open repair umbilical hernia/partial omenectomy, surgery to remove uterine fibroids, L oophorectomy, R partial oophorectomy, surgery for nasal fracture, surgery to remove tailbone cysts, R shoulder surgery. Past Anesthesia/Blood Transfusion Reactions: Previous Problems w/ Anesthesia, Postoperative Nausea & Vomiting (PONV) Additional Past Anesthesia/Blood Transfusion Reaction / Comm: "very hard coming out of anesthesia" Smoking Status: Never smoker - Past Family History Father Family Medical History: Congestive Heart Failure (CHF) Additional Family Medical History / Comment(s): at age 83, possibly from heart issues- unsure. Mother Family Medical History: CVA/TIA, Deep Vein Thrombosis (DVT) Additional Family Medical History / Comment(s): deseased at age 77 from cva Medications and Allergies Home Medications Medication Instructions Recorded Confirmed Type [place]-3 Fatty Acids/Fish Oil [Fish 1 cap PO DAILY 01/30/18 12/28/21 History Oil 1,000 mg Softgel] metFORMIN HCL [Glucophage] 1,000 mg PO DAILY 01/30/18 12/28/21 History Acyclovir [Zovirax] 400 mg PO BID #42 tablet 12/23/21 12/28/21 Rx Fluconazole [Diflucan] 100 mg PO DAILY #21 tab 12/23/21 12/28/21 Rx OLANZapine [ZyPREXA] 2.5 mg PO HS #30 tablet 12/23/21 12/28/21 Rx Ondansetron [Zofran] 4 mg PO Q4HR PRN #45 tab 12/23/21 12/28/21 Rx Acetaminophen Tab [Tylenol] 650 mg PO Q6HR PRN tab 01/06/22 Rx Aminocaproic Acid [Amicar] 1,000 mg PO Q8HR tab 01/06/22 Rx Cefepime [Maxipime] 2 gm IVPB Q8H each 01/06/22 Rx Cholecalciferol [Vitamin D3 (25 75 mcg PO DAILY tab 01/06/22 Rx Mcg = 1000 Iu)] Cholestyramine (with Sugar) 4 gm PO BID@1000,1800 packet 01/06/22 Rx [Questran Packet] Cyclobenzaprine [Flexeril] 5 mg PO TID PRN tab 01/06/22 Rx Lidocaine Viscous 2% [Xylocaine 30 ml PO BID ml 01/06/22 Rx Viscous] Losartan [Cozaar] 50 mg PO DAILY tab 01/06/22 Rx Mag Hydrox/Al Hydrox/Simeth 30 ml PO BID ml 01/06/22 Rx [Maalox] Magnesium Oxide [Mag-Ox] 400 mg PO DAILY tab 01/06/22 Rx Verapamil Sr [Isoptin Sr] 120 mg PO HS tab 01/06/22 Rx metroNIDAZOLE [Flagyl] 500 mg PO TID tab 01/06/22 Rx Allergies Allergy/AdvReac Type Severity Reaction Status Date / Time hydrocodone [From Vicodin] AdvReac Nausea & Verified 12/28/21 07:11 Vomiting & Diarrhea latex AdvReac Itching Verified 12/28/21 07:11 Physical Exam Vitals: Vital Signs Temp Pulse Resp BP Pulse Ox 12/28/21 06:40 97.9 F 120 H 16 101/53 100 12/28/21 04:55 99.3 F 137 H 103/53 97 12/28/21 03:45 99.0 F 130 H 16 130/45 100 12/28/21 03:00 99.9 F H 130 H 18 124/70 96 12/28/21 02:40 100.0 F H 130 H 16 143/103 100 12/28/21 02:22 100.0 F H 120 H 16 133/88 98 12/28/21 01:59 99.9 F H 12/28/21 01:48 108 H 14 130/45 100 12/27/21 21:12 102.5 F H 129 H 20 117/65 98 Intake and Output 12/27/21 12/28/21 12/28/21 22:59 06:59 14:59 Intake Total 250 Balance 250 Intake: Blood Product 250 Platelet Pheresis Pas 250 Psoralen Unit [id number] Other: Weight 108.862 kg 108.862 kg GENERAL DESCRIPTION: Elderly female lying in bed, no distress. No tachypnea or accessory muscle of respiration use. HEENT: Shows Pallor , no scleral icterus. Oral mucous membrane is dry. No pharyngeal erythema or thrush NECK: Trachea central, no thyromegaly. LUNGS: Unlabored breathing. Decreased breath sounds at the bases. No wheeze or crackle. HEART: S1, S2, regular rate and rhythm. No loud murmur ABDOMEN: Soft, no tenderness , guarding or rigidity, no organomegaly EXTREMITIES: No edema of feet. SKIN: No rash, no masses palpable. NEUROLOGICAL: The patient is awake, alert, oriented x3, mood and affect normal. Results CBC & Chem 7: 01/06/22 20:34 01/06/22 03:10 Labs: Abnormal Lab Results - Last 24 Hours (Table) 12/27/21 12/27/21 12/27/21 Range/Units 21:40 21:40 22:47 WBC 0.2 L* (3.8-10.6) k/uL RBC 2.20 L (3.80-5.40) m/uL Hgb 7.3 L (11.4-16.0) gm/dL Hct 19.5 L* (34.0-46.0) % MCHC 37.7 H (31.0-37.0) g/dL Plt Count 4 L* D (150-450) k/uL Sodium 133 L (137-145) mmol/L Chloride 108 H (98-107) mmol/L Carbon Dioxide 20 L (22-30) mmol/L Creatinine 0.50 L (0.52-1.04) mg/dL Glucose 207 H (74-99) mg/dL Calcium 7.3 L (8.4-10.2) mg/dL Magnesium 1.5 L (1.6-2.3) mg/dL AST 13 L (14-36) U/L Total Protein 5.4 L (6.3-8.2) g/dL Albumin 2.9 L (3.5-5.0) g/dL Urine Appearance Cloudy H (Clear) Urine Protein Trace H (Negative) Urine Glucose (UA) 2+ H (Negative) Urine Blood Small H (Negative) Urine Bacteria Rare H (None) /hpf Urine Mucus Rare H (None) /hpf Assessment and Plan (1) Neutropenic fever Status: Acute Code(s): D70.9 - NEUTROPENIA, UNSPECIFIED; R50.81 - FEVER PRESENTING WITH CONDITIONS CLASSIFIED ELSEWHERE SNOMED Code(s): 979707063 Plan: 1patient presented to hospital with sepsis in this patient who did have a fever neutropenia in this patient recently completed her induction chemotherapy work- up so far negative with a chest x-ray was negative urine has been negative no significant tenderness to abdominal wall and a question of possible PICC line infection. 2blood cultures will be followed. 3patient to continue with the vancomycin and cefepime while waiting for the culture to finalize. We will follow on clinical condition and cultures to further adjust medication if needed Thank you for this consultation will follow this patient along with you Time with Patient: Greater than 30
[2021-12-29] MEDS: SALT AND SODA MOUTHWASH 1,000 ML PO SCH ×6 (00:01→23:53)
[2021-12-29] MEDS: VERAPAMIL SR 120 MG TABLET.ER PO SCH (00:30)
[2021-12-29] MEDS: CEFEPIME 2 GM in SODIUM CHLORIDE 0.9% 100 ML IVPB SCH ×3 (04:58→20:50)
[2021-12-29] MEDS: SODIUM CHLORIDE 0.9% 1,000 ML IV SCH ×3 (04:59→20:51)
[2021-12-29] MEDS: metFORMIN 500 MG TAB PO SCH (08:43)
[2021-12-29] MEDS: FLUCONAZOLE 100 MG TAB PO SCH (08:44)
[2021-12-29] MEDS: ACYCLOVIR 200 MG CAP PO SCH ×2 (08:44→20:49)
[2021-12-29] MEDS: MAG HYDROX/AL HYDROX/SIMETH 30 ML, diphenhydrAMINE ELIXIR 75 MG, LIDOCAINE VISCOUS 2% 3... PO SCH ×6 (08:45→20:50)
[2021-12-29 10:56] LABS: African American GFR (CKD) 117.7 (60.0-200.0); Albumin 2.6 g/dL (3.8-4.9); Albumin/Globulin Ratio 1.3 (1.60-3.17); Anion Gap 9.8 mmol/L (10.00-18.00); BUN/Creat Ratio 20.8 Ratio (12.00-20.00); Blood Urea Nitrogen 10.4 mg/dL (9.0-27.0); Calcium 7.3 mg/dL (8.7-10.3); Carbon Dioxide 19.2 mmol/L (20.0-27.5); Non-African American GFR(CKD) 101.6 (60.0-200.0); Potassium 3.1 mmol/L (3.5-5.5); Total Bilirubin 0.3 mg/dL (0.30-1.20); Total Protein 4.6 g/dL (6.2-8.2)
[2021-12-29 11:30] LABS: Basophils # (A) 0 X 10*3/uL (0.00-0.10); Basophils % (A) 0 %; Eosinophils # (A) 0 X 10*3/uL (0.04-0.35); Eosinophils % (A) 0 %; HCT 14.9 % (37.2-46.3); HGB 4.9 g/dL (12.0-15.0); Immature Grans, Automated 0 %; Immature Platelet Fraction 0 % (1.1-6.1); Lymphocytes # (A) 0.14 X 10*3/uL (0.90-5.00); MCH 30.4 pg (27.0-32.0); MCHC 32.9 g/dL (32.0-37.0); MCV 92.5 fL (80.0-97.0); Monocytes # (A) 0 X 10*3/uL (0.20-1.00); Monocytes % (A) 0 %; NRBC Per 100 WBC 0 /100 WBCS (0.0-0.0); Neutrophils # (A) 0 X 10*3/uL (1.80-7.70); Neutrophils % (A) 0 %; Platelet Count 1 X 10*3/uL (140-440); RBC 1.61 X 10*6/uL (4.10-5.20); RDW 15.1 % (11.5-14.5); WBC 0.14 X 10*3/uL (4.50-10.00)
[2021-12-29] MEDS: VANCOMYCIN 1,750 MG in SODIUM CHLORIDE 0.9% 500 ML 500 ML IVPB SCH ×4 (11:46→23:53)
--- NOTE | 2021-12-29 12:24 | P.PN ---
Subjective Progress Note Date: 12/29/21 Principal diagnosis: Febrile neutropenia, pancytopenia. AML In follow-up today patient reports that her stool went from [place] to brown, it's not watery, she denies cramps or pain with bowel movements. She had a MAXIMUM TEMPERATURE 102.3 yesterday afternoon. So far all viral panels are negative. C. difficile negative. Blood cultures at 24 hours are negative. Denies headache, vision changes, dizziness, mild oral irritation with a sore on the left lower buccal area, no bleeding from the nose or mouth, denies shortness of breath, chest pain, unusual abdominal pain, nausea, dysuria, hematuria, swelling in the legs. She does have generalized weakness. Objective - Vital Signs Vital signs: Vital Signs Temp 100.9 F H 12/29/21 11:40 Pulse 103 H 12/29/21 11:40 Resp 16 12/29/21 11:40 BP 119/71 12/29/21 11:40 Pulse Ox 100 12/29/21 11:40 FiO2 Intake & Output 12/28/21 12/29/21 12/29/21 18:59 06:59 18:59 Intake Total 200 Balance 200 Weight 108.862 kg Intake: Intake, IV Titration 200 Amount Sodium Chloride 0.9% 1, 200 000 ml @ 100 mls/hr IV . Q10H [facility] Rx#:[id number] Other: Voiding Method Toilet # Voids 3 # Bowel Movements 4 1 - Constitutional General appearance: Present: average body habitus, cooperative, no acute distress - EENT EENT Comment(s): 6 mm wet purpura lower left buccal area, no bleeding from the mouth noted Eyes: Present: anicteric sclerae, EOMI ENT: Present: hearing grossly normal - Respiratory Respiratory: bilateral: CTA - Cardiovascular Rhythm: regular Heart sounds: normal: S1, S2 Abnormal Heart Sounds: Absent: systolic murmur, diastolic murmur, rub, S3 Gallop, S4 Gallop, click, other - Peripheral edema leg Peripheral Edema: bilateral: Trace - Gastrointestinal General gastrointestinal: Present: normal bowel sounds, soft, tenderness (Generalized, mild) - Integumentary Integumentary: Present: pale - Neurologic Neurologic: Present: CNII-XII intact - Musculoskeletal Musculoskeletal: Present: generalized weakness, strength equal bilaterally - Psychiatric Psychiatric: Present: A&O x's 3, appropriate affect, intact judgment & insight - Labs CBC & Chem 7: 12/29/21 05:30 12/29/21 05:30 Labs: Abnormal Lab Results - Last 24 Hours (Table) 12/28/21 12/29/21 12/29/21 Range/Units 00:33 05:30 05:30 WBC 0.14 L* (4.50-10.00) X 10*3/uL RBC 1.61 L (4.10-5.20) X 10*6/uL Hgb 4.9 L* (12.0-15.0) g/dL Hct 14.9 L* (37.2-46.3) % RDW 15.1 H (11.5-14.5) % Plt Count 1 L* (140-440) X 10*3/uL Plt Count Comment A Neutrophils # 0 L* (1.80-7.70) X 10*3/uL Lymphocytes # 0.14 L (0.90-5.00) X 10*3/uL Monocytes # 0 L (0.20-1.00) X 10*3/uL Eosinophils # 0 L (0.04-0.35) X 10*3/uL Immature Plt Fraction 0 L (1.1-6.1) % Potassium 3.1 L (3.5-5.5) mmol/L Chloride 110 H (96-109) mmol/L Carbon Dioxide 19.2 L (20.0-27.5) mmol/L Anion Gap 9.80 L (10.00-18.00) mmol/L Creatinine 0.5 L (0.6-1.5) mg/dL BUN/Creatinine Ratio 20.80 H (12.00-20.00) Ratio Glucose 122 H (70-110) mg/dL Calcium 7.3 L (8.7-10.3) mg/dL AST 8 L (13-35) U/L Alkaline Phosphatase 33 L (41-126) U/L Total Protein 4.6 L (6.2-8.2) g/dL Albumin 2.6 L (3.8-4.9) g/dL Albumin/Globulin Ratio 1.30 L (1.60-3.17) g/dL Crossmatch See Detail Microbiology - Last 24 Hours (Table) 12/27/21 21:40 Blood Culture - Final Blood 12/27/21 21:46 Blood Culture - Preliminary Blood No Growth after 24 hours 12/27/21 21:45 Blood Culture - Preliminary Blood No Growth after 24 hours 12/27/21 21:38 Blood Culture - Preliminary Blood No Growth after 24 hours Assessment and Plan (1) Neutropenic fever Current Visit: Yes Status: Acute Code(s): D70.9 - NEUTROPENIA, UNSPECIFIED; R50.81 - FEVER PRESENTING WITH CONDITIONS CLASSIFIED ELSEWHERE SNOMED Code(s): 068095113 (2) Pancytopenia Current Visit: Yes Status: Acute Priority: High Code(s): D61.818 - OTHER PANCYTOPENIA SNOMED Code(s): 540253612 (3) Acute myeloid leukemia Current Visit: No Status: Acute Priority: High Code(s): C92.00 - ACUTE MYELOBLASTIC LEUKEMIA, NOT HAVING ACHIEVED REMISSION SNOMED Code(s): 42935779 Plan: Pancultures have been collected, so far negative, Viral panel negative, C. difficile negative. Patient did have another fever overnight 102.3. Empiric antibiotics continue. Patient remains on antiviral and antifungal medications. Infectious Disease consulted Transfuse with irradiated blood products only. Discussed pt case with Blood bank. Transfuse for platelets less than 10,000, hemoglobin less than 7. Hemoglobin is reported at 4.9, not convinced that this is a true reading. Patient will be transfused with 1 unit of packed red blood cells, irradiated. CBC in the a.m. Platelet count today 1000. Single donor, irradiated platelets ordered. No G-CSF, as patient is not confirmed remission Based on imaging and exam, suspect a degree of neutropenic colitis. Nothing by mouth other than ice and sips of water for medications-Continue for now Patient encouraged to contact staff if she needs to use the bathroom or get up, pt is NOT to get up alone Salt and soda, oral care Supportive medications Daily follow-up
--- NOTE | 2021-12-29 13:41 | P.PN ---
Subjective Progress Note Date: 12/29/21 Patient is a very pleasant 65-year-old female with a past medical history of hypertension, GERD, diabetes mellitus, and AML who was recently admitted under the hematology/oncology team undergoing induction chemotherapeutic treatment with Cytarabine from 12/16 till12/24. Patient was all right until yesterday evening when she started noticing fevers. Fevers were high-grade. Patient d enies any shortness of breath. There was no complain of any cough. Patient did notice she was having diarrhea which was nonbloody. Patient denied any abdominal pain. She denied any urinary symptoms. Patient was empirically on ciprofloxacin, fluconazole, acyclovir. Patient was worked up in the ER, initial blood work showed WBC of 0.2, hemoglobin of 7.3 and platelet count of [address] abdomen and pelvis done showed some proximal jejunal wall thickening that could be gastroenteritis, there was no evidence of an diverticulitis. Patient was started on broad-spectrum antibiotics and was admitted to hospitalist service 12/29/21. Patient seen and examined. Patient afebrile since yesterday evening, states she feels better. Hemoglobin this morning is 4.9, platelet count is 1. Vital signs other than that are stable REVIEW OF SYSTEMS: CONSTITUTIONAL: No fever, no malaise,. CARDIOVASCULAR: No chest pain, no palpitations, no syncope. PULMONARY: No shortness of breath, no cough, GASTROINTESTINAL: No diarrhea, no nausea, no vomiting, no abdominal pain. NEUROLOGICAL: No headaches, no weakness, PHYSICAL EXAMINATION: GENERAL: The patient is alert and oriented x3, not in any acute distress. Well developed, well nourished. HEENT: Pupils are round and equally reacting to light. EOMI. No scleral icterus. No conjunctival pallor. Normocephalic, atraumatic. No pharyngeal erythema. No thyromegaly. CARDIOVASCULAR: S1 and S2 present. No murmurs, rubs, or gallops. PULMONARY: Chest is clear to auscultation, no wheezing or crackles. ABDOMEN: Soft, nontender, nondistended, normoactive bowel sounds. No palpable organomegaly. MUSCULOSKELETAL: No joint swelling or deformity. EXTREMITIES: No cyanosis, clubbing, or pedal edema. NEUROLOGICAL: Gross neurological examination did not reveal any focal deficits. SKIN: No rashes. Assessment and plan Neutropenic fevers Pancytopenia acute myeloid leukemia Diabetes mellitus Hypertension Hypomagnesemia Plan; Monitor CBC Hematology oncology has ordered 1 unit of packed red blood cell and 1 unit of platelets Follow-up on blood cultures Bleeding precautions Neutropenic precautions Continue broad-spectrum antibiotics in the form of cefepime and vancomycin Continue acyclovir Follow-up in ID recommendations follow-up on hematology oncology recommendations Objective - Vital Signs Vital signs: Vital Signs Temp 100.0 F H 12/29/21 13:27 Pulse 99 12/29/21 13:27 Resp 16 12/29/21 13:27 BP 147/80 12/29/21 13:27 Pulse Ox 100 12/29/21 13:27 FiO2 Intake & Output 12/28/21 12/29/21 12/29/21 18:59 06:59 18:59 Intake Total 200 0 Balance 200 0 Weight 108.862 kg Intake: Intake, IV Titration 200 Amount Sodium Chloride 0.9% 1, 200 000 ml @ 100 mls/hr IV . Q10H CRISTIN Rx#:[id number] Blood Product 0 Rc Irr As1 Unit 0 [id number] Other: Voiding Method Toilet # Voids 3 # Bowel Movements 4 1 - Labs CBC & Chem 7: 12/29/21 05:30 12/29/21 05:30 Labs: Abnormal Lab Results - Last 24 Hours (Table) 12/28/21 12/29/21 12/29/21 Range/Units 00:33 05:30 05:30 WBC 0.14 L* (4.50-10.00) X 10*3/uL RBC 1.61 L (4.10-5.20) X 10*6/uL Hgb 4.9 L* (12.0-15.0) g/dL Hct 14.9 L* (37.2-46.3) % RDW 15.1 H (11.5-14.5) % Plt Count 1 L* (140-440) X 10*3/uL Plt Count Comment A Neutrophils # 0 L* (1.80-7.70) X 10*3/uL Lymphocytes # 0.14 L (0.90-5.00) X 10*3/uL Monocytes # 0 L (0.20-1.00) X 10*3/uL Eosinophils # 0 L (0.04-0.35) X 10*3/uL Immature Plt Fraction 0 L (1.1-6.1) % Potassium 3.1 L (3.5-5.5) mmol/L Chloride 110 H (96-109) mmol/L Carbon Dioxide 19.2 L (20.0-27.5) mmol/L Anion Gap 9.80 L (10.00-18.00) mmol/L Creatinine 0.5 L (0.6-1.5) mg/dL BUN/Creatinine Ratio 20.80 H (12.00-20.00) Ratio Glucose 122 H (70-110) mg/dL Calcium 7.3 L (8.7-10.3) mg/dL AST 8 L (13-35) U/L Alkaline Phosphatase 33 L (41-126) U/L Total Protein 4.6 L (6.2-8.2) g/dL Albumin 2.6 L (3.8-4.9) g/dL Albumin/Globulin Ratio 1.30 L (1.60-3.17) g/dL Crossmatch See Detail Microbiology - Last 24 Hours (Table) 12/27/21 21:40 Blood Culture - Final Blood 12/27/21 21:46 Blood Culture - Preliminary Blood No Growth after 24 hours 12/27/21 21:45 Blood Culture - Preliminary Blood No Growth after 24 hours 12/27/21 21:38 Blood Culture - Preliminary Blood No Growth after 24 hours
--- NOTE | 2021-12-29 15:51 | CDI ---
Documentation Clarification Form Date: 12/29/2021 03:10:28 PM From: Polina Dickey Admit Date: 12/28/2021 12:34:00 AM Patient Name: Winnie Smith I Visit Number: [id number] Discharge Date: ATTENTION: The Clinical Documentation Specialists (CDI) and [facility] Coding Staff appreciate your assistance in clarifying documentation. Please respond to the clarification below the line at the bottom and electronically sign. The CDI & [facility] Coding staff will review the response and follow-up if needed. Please note: Queries are made part of the Legal Health Record. If you have any questions, please contact the author of this message via ITS. Dr. Abiel Dowell Sepsis is being documented in ID consult, 12/28. Additional clarification regarding the etiology/cause of the clinical indicators is requested. History/Risk Factors: 65-year-old female presents to the ED with high grade fevers and diarrhea which was non bloody. Medical History: Recently admitted for induction of chemotherapy 12/16- 12/24; DM, HTN and GERD. H&P, 12/28. Clinical Indicators: WBC: 12/27 0.2 Lactic acid: 12/27 1.2 Blood cultures: 12/27 21:45 No growth after 24 hours; 12/27 21: 40 Final gram- positive cocci in clusters. Vitals signs: 12/27 B/P 117/65; HR 129; Temp 102.5F Oral; RR 20; SpO2 98% room air ID Consult, 12/28: 1patient presented to hospital with sepsis in this patient who did have a fever neutropenia in this patient recently completed her induction chemotherapy work- up so far negative with a chest x-ray was negative urine has been negative no significant tenderness to abdominal wall and a question of possible PICC line infection. Treatment: ID Consult: See above Antibiotics:12/27 Cefepime IVPB x 1; 12/27 Vancomycin IVPB x 1; 12/28 Cefepime IVPB Q8HR; 12/28 Vancomycin IVPB Q12H IV Bolus: 12/27 0.9NS 2L bolus In your professional opinion, please clarify if these findings signify one of the following conditions: [ ] Sepsis POA [ ] Sepsis ruled out [ ] Other, please specify [ x ] Unable to determine SIRS Criteria: 2 or more of the following may indicate SIRS -Temperature < 96.8F (36C) or > 101.0F (38.3C) -Heart Rate > 90 bpm -Respiratory Rate > 20 breaths/min or PaCO2 < 32 mmHg -White Blood Cell Count > 12,000 or < 4,000 cells/mm3 or > 10% bands (Template Last Reviewed: March 2020) MTDD
[2021-12-29] MEDS: ACETAMINOPHEN TAB 325 MG TAB PO PRN (19:44)
[2021-12-29] MEDS: OLANZapine 2.5 MG TAB PO SCH (20:49)
[2021-12-30] MEDS: CEFEPIME 2 GM in SODIUM CHLORIDE 0.9% 100 ML IVPB SCH ×3 (05:11→19:28)
[2021-12-30] MEDS: ACETAMINOPHEN TAB 325 MG TAB PO PRN ×2 (05:12→21:00)
[2021-12-30] MEDS: SALT AND SODA MOUTHWASH 1,000 ML PO SCH ×5 (05:13→23:29)
[2021-12-30] MEDS: metFORMIN 500 MG TAB PO SCH (07:59)
[2021-12-30] MEDS: FLUCONAZOLE 100 MG TAB PO SCH (07:59)
[2021-12-30] MEDS: ACYCLOVIR 200 MG CAP PO SCH ×2 (07:59→21:00)
[2021-12-30] MEDS: MAG HYDROX/AL HYDROX/SIMETH 30 ML, diphenhydrAMINE ELIXIR 75 MG, LIDOCAINE VISCOUS 2% 3... PO SCH ×6 (08:00→21:00)
[2021-12-30] MEDS ORDERED: Potassium Replacement Protocol 1 EACH MISC MISCELLANE PRN ×2 (09:00→23:41)
[2021-12-30] MEDS: POTASSIUM CHLORIDE 10 MEQ in WATER FOR INJECTION 1 100ML.BAG IVPB SCH ×4 (10:33→15:27)
[2021-12-30] MEDS ORDERED: VANCOMYCIN TROUGH DUE 1 EACH MISC MISCELLANE ONE (11:00)
[2021-12-30 11:40] LABS: Anisocytosis Slight; MCH 29.8 pg (25.0-35.0); MCHC 34.5 g/dL (31.0-37.0); MCV 86.3 fL (80.0-100.0); Mean Platelet Volume 12.6; Poikilocytosis Slight; RBC 1.94 m/uL (3.80-5.40); RDW 16.2 % (11.5-15.5)
[2021-12-30 11:43] LABS: WBC 0.3 k/uL (3.8-10.6)
[2021-12-30 11:44] LABS: HGB 5.8 gm/dL (11.4-16.0)
[2021-12-30 11:45] LABS: HCT 16.8 % (34.0-46.0); Platelet Count 8 k/uL (150-450)
--- NOTE | 2021-12-30 11:56 | P.PN ---
Subjective Progress Note Date: 12/30/21 Principal diagnosis: Febrile neutropenia, pancytopenia. AML In follow-up today patient reports feeling pretty good. Her mouth is sore, no sore throat, ear pain, epistaxis, cough, unusual cough or SOB, abd bloating feels much better today, no diarrhea this AM, denies urinary symptoms. No swelling. She is only ambulating with assistance. Objective - Vital Signs Vital signs: Vital Signs Temp 98.5 F 12/30/21 11:10 Pulse 94 12/30/21 11:10 Resp 18 12/30/21 11:10 BP 161/84 12/30/21 11:10 Pulse Ox 100 12/30/21 11:10 FiO2 Intake & Output 12/29/21 12/30/21 12/30/21 18:59 06:59 18:59 Intake Total 310 283 Balance 310 283 Intake: Oral 0 Blood Product 310 283 Platelet Pheresis Pas 283 Psoralen Unit [id number] Rc Irr As1 Unit 310 [id number] Other: Voiding Method Toilet # Voids 1 3 1 # Bowel Movements 1 2 - Constitutional General appearance: Present: average body habitus, cooperative, no acute distress - EENT EENT Comment(s): bilaterl buccal wet purpura Eyes: Present: anicteric sclerae, EOMI ENT: Present: hearing grossly normal - Respiratory Respiratory: bilateral: CTA - Cardiovascular Rhythm: regular Heart sounds: normal: S1, S2 Abnormal Heart Sounds: Absent: systolic murmur, diastolic murmur, rub, S3 Quintana p, S4 Gallop, click, other - Peripheral edema leg Peripheral Edema: bilateral: None - Gastrointestinal General gastrointestinal: Present: normal bowel sounds, soft, tenderness (very mild, no rebound, not rigid) - Integumentary Integumentary: Present: normal, pale - Neurologic Neurologic: Present: CNII-XII intact - Musculoskeletal Musculoskeletal: Present: generalized weakness, strength equal bilaterally - Psychiatric Psychiatric: Present: A&O x's 3, appropriate affect, intact judgment & insight - Labs CBC & Chem 7: 12/29/21 05:30 12/29/21 05:30 Labs: Abnormal Lab Results - Last 24 Hours (Table) 12/28/21 Range/Units 00:33 Crossmatch See Detail Microbiology - Last 24 Hours (Table) 12/27/21 21:38 Blood Culture Gram Stain - Preliminary Blood 12/27/21 21:40 Blood Culture Gram Stain - Final Blood Blood Culture - Final Micrococcus species 12/27/21 21:38 Blood Culture - Final Blood 12/27/21 21:46 Blood Culture - Preliminary Blood No Growth after 48 hours 12/27/21 21:45 Blood Culture - Preliminary Blood No Growth after 48 hours 12/27/21 21:40 Blood Culture - Final Blood Assessment and Plan (1) Neutropenic fever Current Visit: Yes Status: Acute Code(s): D70.9 - NEUTROPENIA, UNSPECIFIED; R50.81 - FEVER PRESENTING WITH CONDITIONS CLASSIFIED ELSEWHERE SNOMED Code(s): 091714739 (2) Pancytopenia Current Visit: Yes Status: Acute Priority: High Code(s): D61.818 - OTHER PANCYTOPENIA SNOMED Code(s): 081204124 (3) Acute myeloid leukemia Current Visit: No Status: Acute Priority: High Code(s): C92.00 - ACUTE MYELOBLASTIC LEUKEMIA, NOT HAVING ACHIEVED REMISSION SNOMED Code(s): 65506602 Plan: Pancultures have been collected, one positive BC for micrococcus, ending review by ID. Viral panel negative, C. difficile negative. Tmax 100.9F since yesterday. Empiric antibiotics continue. Patient remains on antiviral and antifungal medications. Transfuse with irradiated blood products only. Transfuse for platelets less than 10,000 or if symptomatic-pt is currently symptomatic with wet purpura, plt ordered. Hgb 5.8, 1 unit ordered. No G-CSF, as patient is not confirmed remission Based on exam today, pt reports will offer clear liquid diet. Asked pt to be very conservative as to how much she takes in and to stop immediately if she has abd discomfort. Patient encouraged to contact staff if she needs to use the bathroom or get up, pt is NOT to get up alone Salt and soda, oral care Supportive medications Daily follow-up CBC daily
[2021-12-30] MEDS: VANCOMYCIN 1,750 MG in SODIUM CHLORIDE 0.9% 500 ML 500 ML IVPB SCH ×2 (12:09→23:57)
--- NOTE | 2021-12-30 12:23 | P.PN ---
Subjective Progress Note Date: 12/30/21 Patient is a very pleasant 65-year-old female with a past medical history of hypertension, GERD, diabetes mellitus, and AML who was recently admitted under the hematology/oncology team undergoing induction chemotherapeutic treatment with Cytarabine from 12/16 till12/24. Patient was all right until yesterday evening when she started noticing fevers. Fevers were high-grade. Patient d enies any shortness of breath. There was no complain of any cough. Patient did notice she was having diarrhea which was nonbloody. Patient denied any abdominal pain. She denied any urinary symptoms. Patient was empirically on ciprofloxacin, fluconazole, acyclovir. Patient was worked up in the ER, initial blood work showed WBC of 0.2, hemoglobin of 7.3 and platelet count of [address] abdomen and pelvis done showed some proximal jejunal wall thickening that could be gastroenteritis, there was no evidence of an diverticulitis. Patient was started on broad-spectrum antibiotics and was admitted to hospitalist service 12/29/21. Patient seen and examined. Patient afebrile since yesterday evening, states she feels better. Hemoglobin this morning is 4.9, platelet count is 1. Vital signs other than that are stable 12/30/21. Patient seen and examined. T-max of 100.9. Platelet count was low, being transfused platelets. Hemoglobin is 5.8. No evidence of any blood in the stools REVIEW OF SYSTEMS: CONSTITUTIONAL: No fever, no malaise,. CARDIOVASCULAR: No chest pain, no palpitations, no syncope. PULMONARY: No shortness of breath, no cough, GASTROINTESTINAL: No diarrhea, no nausea, no vomiting, no abdominal pain. NEUROLOGICAL: No headaches, no weakness, PHYSICAL EXAMINATION: GENERAL: The patient is alert and oriented x3, not in any acute distress. Well developed, well nourished. HEENT: Pupils are round and equally reacting to light. EOMI. No scleral icterus. No conjunctival pallor. Normocephalic, atraumatic. No pharyngeal erythema. No thyromegaly. CARDIOVASCULAR: S1 and S2 present. No murmurs, rubs, or gallops. PULMONARY: Chest is clear to auscultation, no wheezing or crackles. ABDOMEN: Soft, nontender, nondistended, normoactive bowel sounds. No palpable o rganomegaly. MUSCULOSKELETAL: No joint swelling or deformity. EXTREMITIES: No cyanosis, clubbing, or pedal edema. NEUROLOGICAL: Gross neurological examination did not reveal any focal deficits. SKIN: No lesions seen Assessment and plan Neutropenic fevers Pancytopenia acute myeloid leukemia Diabetes mellitus Hypertension Hypomagnesemia Plan; Monitor CBC Monitor electrolytes Hematology has again ordered 1 unit of packed red blood cell and 1 unit of platelets Follow-up on blood cultures Bleeding precautions Neutropenic precautions Continue broad-spectrum antibiotics in the form of cefepime and vancomycin Continue acyclovir Follow-up in ID recommendations follow-up on hematology oncology recommendations Objective - Vital Signs Vital signs: Vital Signs Temp 98.5 F 12/30/21 11:10 Pulse 94 12/30/21 11:10 Resp 18 12/30/21 11:10 BP 161/84 12/30/21 11:10 Pulse Ox 100 12/30/21 11:10 FiO2 Intake & Output 12/29/21 12/30/21 12/30/21 18:59 06:59 18:59 Intake Total 310 283 Balance 310 283 Intake: Oral 0 Blood Product 310 283 Platelet Pheresis Pas 283 Psoralen Unit [id number] Rc Irr As1 Unit 310 [id number] Other: Voiding Method Toilet # Voids 1 3 1 # Bowel Movements 1 2 - Labs CBC & Chem 7: 12/30/21 11:06 12/29/21 05:30 Labs: Abnormal Lab Results - Last 24 Hours (Table) 12/28/21 12/30/21 Range/Units 00:33 11:06 RBC 1.94 L (3.80-5.40) m/uL Hgb 5.8 L* D (11.4-16.0) gm/dL Hct 16.8 L* (34.0-46.0) % RDW 16.2 H (11.5-15.5) % Crossmatch See Detail Microbiology - Last 24 Hours (Table) 12/27/21 21:38 Blood Culture Gram Stain - Preliminary Blood 12/27/21 21:40 Blood Culture Gram Stain - Final Blood Blood Culture - Final Micrococcus species 12/27/21 21:38 Blood Culture - Final Blood 12/27/21 21:46 Blood Culture - Preliminary Blood No Growth after 48 hours 12/27/21 21:45 Blood Culture - Preliminary Blood No Growth after 48 hours 12/27/21 21:40 Blood Culture - Final Blood
[2021-12-30 12:27] LABS: ALT 18 U/L (4-34); AST 16 U/L (14-36); African American GFR (CKD) >90 (>60 ml/min/1.73 sqM); Albumin 2.7 g/dL (3.5-5.0); Albumin/Globulin Ratio 1.1; Alkaline Phosphatase 41 U/L (38-126); Anion Gap 7 mmol/L; Blood Urea Nitrogen 10 mg/dL (7-17); Calcium 7.3 mg/dL (8.4-10.2); Carbon Dioxide 20 mmol/L (22-30); Chloride 110 mmol/L (98-107); Globulin 2.5 g/dL; Glucose 118 mg/dL (74-99); Non-African American GFR(CKD) >90 (>60 ml/min/1.73 sqM); Sodium 137 mmol/L (137-145); Total Bilirubin 0.7 mg/dL (0.2-1.3); Total Protein 5.2 g/dL (6.3-8.2)
[2021-12-30 12:31] LABS: Potassium 2.7 mmol/L (3.5-5.1)
--- NOTE | 2021-12-30 13:47 | P.PN ---
Subjective Progress Note Date: 12/29/21 Principal diagnosis: Febrile neutropenia Patient is a 66-year-old female with a past medical history significant for hypertension acute myeloid leukemia in this patient who recently did have induction chemotherapy completed on 12/24/2021 through the left arm PICC line presenting to the hospital for fever initial work-up negative except CT abdominal pelvis did show some jejunal wall thickening could be gastroenteritis. On today's evaluation that is 12/29/2021 the patient overall fever pattern has improved with a low-grade fever 100.9 this morning, the patient is currently breathing comfortably on room air no chest pain shortness of breath or cough no nausea no vomiting no abdominal pain or any worsening diarrhea Objective - Vital Signs Vital signs: Vital Signs Temp 100.0 F H 12/29/21 13:27 Pulse 99 12/29/21 13:27 Resp 16 12/29/21 13:27 BP 147/80 12/29/21 13:27 Pulse Ox 100 12/29/21 13:27 FiO2 Intake & Output 12/28/21 12/29/21 12/29/21 18:59 06:59 18:59 Intake Total 200 0 Balance 200 0 Weight 108.862 kg Intake: Intake, IV Titration 200 Amount Sodium Chloride 0.9% 1, 200 000 ml @ 100 mls/hr IV . Q10H CRISTIN Rx#:[id number] Blood Product 0 Rc Irr As1 Unit 0 [id number] Other: Voiding Method Toilet # Voids 3 # Bowel Movements 4 1 - Exam GENERAL DESCRIPTION: Elderly female up in the chair, no distress. No tachypnea or accessory muscle of respiration use. LUNGS: Unlabored breathing. Clear to auscultation anteriorly. No wheeze or crackle. HEART: S1, S2, regular rate and rhythm. No loud murmur ABDOMEN: Soft, no tenderness , guarding or rigidity, no organomegaly EXTREMITIES: No edema of feet. - Labs CBC & Chem 7: 12/30/21 11:06 12/30/21 11:06 Labs: Abnormal Lab Results - Last 24 Hours (Table) 12/28/21 12/29/21 12/29/21 Range/Units 00:33 05:30 05:30 WBC 0.14 L* (4.50-10.00) X 10*3/uL RBC 1.61 L (4.10-5.20) X 10*6/uL Hgb 4.9 L* (12.0-15.0) g/dL Hct 14.9 L* (37.2-46.3) % RDW 15.1 H (11.5-14.5) % Plt Count 1 L* (140-440) X 10*3/uL Plt Count Comment A Neutrophils # 0 L* (1.80-7.70) X 10*3/uL Lymphocytes # 0.14 L (0.90-5.00) X 10*3/uL Monocytes # 0 L (0.20-1.00) X 10*3/uL Eosinophils # 0 L (0.04-0.35) X 10*3/uL Immature Plt Fraction 0 L (1.1-6.1) % Potassium 3.1 L (3.5-5.5) mmol/L Chloride 110 H (96-109) mmol/L Carbon Dioxide 19.2 L (20.0-27.5) mmol/L Anion Gap 9.80 L (10.00-18.00) mmol/L Creatinine 0.5 L (0.6-1.5) mg/dL BUN/Creatinine Ratio 20.80 H (12.00-20.00) Ratio Glucose 122 H (70-110) mg/dL Calcium 7.3 L (8.7-10.3) mg/dL AST 8 L (13-35) U/L Alkaline Phosphatase 33 L (41-126) U/L Total Protein 4.6 L (6.2-8.2) g/dL Albumin 2.6 L (3.8-4.9) g/dL Albumin/Globulin Ratio 1.30 L (1.60-3.17) g/dL Crossmatch See Detail Microbiology - Last 24 Hours (Table) 12/27/21 21:40 Blood Culture - Final Blood 12/27/21 21:46 Blood Culture - Preliminary Blood No Growth after 24 hours 12/27/21 21:45 Blood Culture - Preliminary Blood No Growth after 24 hours 12/27/21 21:38 Blood Culture - Preliminary Blood No Growth after 24 hours Assessment and Plan (1) Neutropenic fever Current Visit: Yes Status: Acute Code(s): D70.9 - NEUTROPENIA, UNSPECIFIED; R50.81 - FEVER PRESENTING WITH CONDITIONS CLASSIFIED ELSEWHERE SNOMED Code(s): 664448977 Plan: 1patient presented to hospital with sepsis in this patient who did have a fever neutropenia in this patient recently completed her induction chemotherapy work- up so far negative with a chest x-ray was negative urine has been negative no significant tenderness to abdominal wall and a question of possible PICC line infection. 2blood cultures has been obtained and currently pending 3patient to continue with the vancomycin and cefepime while waiting for the culture to finalize. Time with Patient: Less than 30
--- NOTE | 2021-12-30 13:48 | P.PN ---
Subjective Progress Note Date: 12/30/21 Principal diagnosis: Febrile neutropenia Patient is a 66-year-old female with a past medical history significant for hypertension acute myeloid leukemia in this patient who recently did have induction chemotherapy completed on 12/24/2021 through the left arm PICC line presenting to the hospital for fever initial work-up negative except CT abdominal pelvis did show some jejunal wall thickening could be gastroenteritis. On today's evaluation that is 12/30/2021,, last fever was 100 F yesterday afternoon the patient is afebrile today, the patient is breathing comfortably on room air no chest pain no shortness of breath or cough no nausea vomiting no abdominal pain no diarrhea Objective - Vital Signs Vital signs: Vital Signs Temp 98.7 F 12/30/21 13:33 Pulse 86 12/30/21 13:33 Resp 16 12/30/21 13:33 BP 148/86 12/30/21 13:33 Pulse Ox 100 12/30/21 13:33 FiO2 Intake & Output 12/29/21 12/30/21 12/30/21 18:59 06:59 18:59 Intake Total 310 283 0 Balance 310 283 0 Intake: Oral 0 Blood Product 310 283 0 Platelet Pheresis Pas 283 0 Psoralen Unit [id number] Rc Irr As1 Unit 310 [id number] Other: Voiding Method Toilet # Voids 1 3 1 # Bowel Movements 1 2 - Exam GENERAL DESCRIPTION: Elderly female up in the chair, no distress. No tachypnea or accessory muscle of respiration use. LUNGS: Unlabored breathing. Clear to auscultation anteriorly. No wheeze or crackle. HEART: S1, S2, regular rate and rhythm. No loud murmur ABDOMEN: Soft, no tenderness , guarding or rigidity, no organomegaly EXTREMITIES: No edema of feet. - Labs CBC & Chem 7: 12/30/21 11:06 12/30/21 11:06 Labs: Abnormal Lab Results - Last 24 Hours (Table) 12/28/21 12/30/21 12/30/21 Range/Units 00:33 11:06 11:06 WBC 0.3 L* (3.8-10.6) k/uL RBC 1.94 L (3.80-5.40) m/uL Hgb 5.8 L* D (11.4-16.0) gm/dL Hct 16.8 L* (34.0-46.0) % RDW 16.2 H (11.5-15.5) % Plt Count 8 L* D (150-450) k/uL Potassium 2.7 L* (3.5-5.1) mmol/L Chloride 110 H (98-107) mmol/L Carbon Dioxide 20 L (22-30) mmol/L Creatinine 0.41 L (0.52-1.04) mg/dL Glucose 118 H (74-99) mg/dL Calcium 7.3 L (8.4-10.2) mg/dL Total Protein 5.2 L (6.3-8.2) g/dL Albumin 2.7 L (3.5-5.0) g/dL Crossmatch See Detail Microbiology - Last 24 Hours (Table) 12/27/21 21:38 Blood Culture Gram Stain - Preliminary Blood 12/27/21 21:40 Blood Culture Gram Stain - Final Blood Blood Culture - Final Micrococcus species 12/27/21 21:38 Blood Culture - Final Blood 12/27/21 21:46 Blood Culture - Preliminary Blood No Growth after 48 hours 12/27/21 21:45 Blood Culture - Preliminary Blood No Growth after 48 hours 12/27/21 21:40 Blood Culture - Final Blood Assessment and Plan (1) Neutropenic fever Current Visit: Yes Status: Acute Code(s): D70.9 - NEUTROPENIA, UNSPECIFIED; R50.81 - FEVER PRESENTING WITH CONDITIONS CLASSIFIED ELSEWHERE SNOMED Code(s): 665130945 Plan: 1patient presented to hospital with sepsis in this patient who did have a fever neutropenia in this patient recently completed her induction chemotherapy work- up so far negative with a chest x-ray was negative urine has been negative no significant tenderness to abdominal wall and a question of possible PICC line infection. 2Patient blood culture with micrococcus species questionably contamination repeat blood culture so far pending 3patient to continue with the vancomycin and cefepime , And monitor clinical course closely Time with Patient: Less than 30
[2021-12-30] MEDS: SODIUM CHLORIDE 0.9% 1,000 ML IV SCH (15:30)
[2021-12-30] MEDS: VERAPAMIL SR 120 MG TABLET.ER PO SCH (21:00)
[2021-12-30] MEDS: OLANZapine 2.5 MG TAB PO SCH (21:00)
[2021-12-30] MEDS: POTASSIUM CHLORIDE ER 20 MEQ TAB.ER PO SCH (23:57)
[2021-12-31] MEDS: POTASSIUM CHLORIDE ER 20 MEQ TAB.ER PO SCH ×2 (01:22→02:14)
[2021-12-31] MEDS: SODIUM CHLORIDE 0.9% 1,000 ML IV SCH ×2 (02:23→10:24)
[2021-12-31] MEDS: CEFEPIME 2 GM in SODIUM CHLORIDE 0.9% 100 ML IVPB SCH ×3 (03:31→21:34)
[2021-12-31] MEDS: SALT AND SODA MOUTHWASH 1,000 ML PO SCH ×4 (06:33→21:39)
[2021-12-31] MEDS: ACETAMINOPHEN TAB 325 MG TAB PO PRN (06:33)
[2021-12-31 06:50] LABS: Partial Thromboplastin Time 24.2 sec (22.0-30.0); Prothrombin Time 10.8 sec (9.0-12.0)
[2021-12-31] MEDS: MAG HYDROX/AL HYDROX/SIMETH 30 ML, diphenhydrAMINE ELIXIR 75 MG, LIDOCAINE VISCOUS 2% 3... PO SCH ×6 (09:06→21:43)
[2021-12-31] MEDS: metFORMIN 500 MG TAB PO SCH (09:06)
[2021-12-31] MEDS: FLUCONAZOLE 100 MG TAB PO SCH (09:06)
[2021-12-31 10:00] LABS: NRBC Per 100 WBC 0 /100 WBCS (0.0-0.0)
[2021-12-31 10:01] LABS: Acanthocytes 2+; Basophils # (A) 0 X 10*3/uL (0.00-0.10); Basophils % (A) 0 %; Eosinophils # (A) 0 X 10*3/uL (0.04-0.35); Eosinophils % (A) 0 %; HCT 18.8 % (37.2-46.3); HGB 6.5 g/dL (12.0-15.0); Immature Grans, Automated 0 %; Immature Platelet Fraction 1.3 % (1.1-6.1); Lymphocytes # (A) 0.25 X 10*3/uL (0.90-5.00); Lymphocytes % (A) 96.2 %; MCH 29.3 pg (27.0-32.0); MCHC 34.6 g/dL (32.0-37.0); MCV 84.7 fL (80.0-97.0); Mean Platelet Volume 14.3 fL (9.5-12.2); Monocytes # (A) 0 X 10*3/uL (0.20-1.00); Monocytes % (A) 0 %; Neutrophils # (A) 0.01 X 10*3/uL (1.80-7.70); Neutrophils % (A) 3.8 %; Platelet Count 9 X 10*3/uL (140-440); RBC 2.22 X 10*6/uL (4.10-5.20); RDW 15.1 % (11.5-14.5); Rouleaux PRESENT; WBC 0.26 X 10*3/uL (4.50-10.00)
[2021-12-31 10:05] LABS: Magnesium 1.7 mg/dL (1.5-2.4)
[2021-12-31 10:07] LABS: African American GFR (CKD) 126.7 (60.0-200.0); Albumin 2.9 g/dL (3.8-4.9); Albumin/Globulin Ratio 1.45 (1.60-3.17); Anion Gap 11.1 mmol/L (10.00-18.00); Calcium 7.7 mg/dL (8.7-10.3); Carbon Dioxide 19.9 mmol/L (20.0-27.5); Non-African American GFR(CKD) 109.3 (60.0-200.0); Potassium 3.4 mmol/L (3.5-5.5); Total Bilirubin 0.8 mg/dL (0.30-1.20); Total Protein 4.9 g/dL (6.2-8.2)
[2021-12-31] MEDS ORDERED: Potassium Replacement Protocol 1 EACH MISC MISCELLANE PRN (11:57)
[2021-12-31] MEDS ORDERED: FUROSEMIDE 10 MG/ML 2 ML VIAL IV ONE (12:08)
--- NOTE | 2021-12-31 12:10 | P.PN ---
Subjective Progress Note Date: 12/31/21 Patient is a very pleasant 65-year-old female with a past medical history of hypertension, GERD, diabetes mellitus, and AML who was recently admitted under the hematology/oncology team undergoing induction chemotherapeutic treatment with Cytarabine from 12/16 till12/24. Patient was all right until yesterday evening when she started noticing fevers. Fevers were high-grade. Patient d enies any shortness of breath. There was no complain of any cough. Patient did notice she was having diarrhea which was nonbloody. Patient denied any abdominal pain. She denied any urinary symptoms. Patient was empirically on ciprofloxacin, fluconazole, acyclovir. Patient was worked up in the ER, initial blood work showed WBC of 0.2, hemoglobin of 7.3 and platelet count of [address] abdomen and pelvis done showed some proximal jejunal wall thickening that could be gastroenteritis, there was no evidence of an diverticulitis. Patient was started on broad-spectrum antibiotics and was admitted to hospitalist service 12/29/21. Patient seen and examined. Patient afebrile since yesterday evening, states she feels better. Hemoglobin this morning is 4.9, platelet count is 1. Vital signs other than that are stable 12/30/21. Patient seen and examined. T-max of 100.9. Platelet count was low, being transfused platelets. Hemoglobin is 5.8. No evidence of any blood in the stools 12/31/21. Patient Seen and examined.. Complaining of swelling of lower extremities. Patient has gained 10 KGs of weight while in the hospital. REVIEW OF SYSTEMS: CONSTITUTIONAL: No fever, no malaise,. CARDIOVASCULAR: No chest pain, no palpitations, no syncope. PULMONARY: No shortness of breath, no cough, GASTROINTESTINAL: No diarrhea, no nausea, no vomiting, no abdominal pain. NEUROLOGICAL: No headaches, no weakness, PHYSICAL EXAMINATION: GENERAL: The patient is alert and oriented x3, not in any acute distress. Well developed, well nourished. HEENT: Pupils are round and equally reacting to light. EOMI. No scleral icterus. No conjunctival pallor. Normocephalic, atraumatic. No pharyngeal erythema. No thyromegaly. CARDIOVASCULAR: S1 and S2 present. No murmurs, rubs, or gallops. PULMONARY: Chest is clear to auscultation, no wheezing or crackles. ABDOMEN: Soft, nontender, nondistended, normoactive bowel sounds. No palpable organomegaly. MUSCULOSKELETAL: No joint swelling or deformity. EXTREMITIES: 2+ pitting edema of lower extremities bilaterally NEUROLOGICAL: Gross neurological examination did not reveal any focal deficits. SKIN: No lesions seen Assessment and plan Neutropenic fevers Pancytopenia acute myeloid leukemia Diabetes mellitus Hypertension Hypomagnesemia Plan; Monitor CBC Monitor electrolytes Hemoglobin This morning 6.5, platelet is 9, Hematology has again ordered 1 unit of packed red blood cell and 1 unit of platelets We'll give 1 dose of Lasix 20 mg IV Follow-up on blood cultures Bleeding precautions Neutropenic precautions Continue broad-spectrum antibiotics in the form of cefepime and vancomycin Continue acyclovir Follow-up in ID recommendations follow-up on hematology oncology recommendations Objective - Vital Signs Vital signs: Vital Signs Temp 98.7 F 12/31/21 04:08 Pulse 81 12/31/21 04:08 Resp 16 12/31/21 04:08 BP 126/79 12/31/21 04:08 Pulse Ox 98 12/31/21 04:08 FiO2 Intake & Output 12/30/21 12/31/21 12/31/21 18:59 06:59 18:59 Intake Total 274 620 Output Total 1 3 Balance 273 617 Weight 118 kg Intake: Blood Product 274 620 Platelet Pheresis Pas 274 Psoralen Unit [id number] Rc Irr As1 Unit 310 [id number] Rc Irr As1 Unit 0 310 [id number] Output: Urine 1 3 Other: Voiding Method Toilet # Voids 1 1 - Labs CBC & Chem 7: 12/31/21 05:51 12/31/21 05:51 Labs: Abnormal Lab Results - Last 24 Hours (Table) 12/28/21 12/30/21 12/30/21 Range/Units 00:33 11:06 11:06 WBC 0.3 L* (3.8-10.6) k/uL RBC (4.10-5.20) X 10*6/uL Hgb (12.0-15.0) g/dL Hct (37.2-46.3) % RDW (11.5-14.5) % Plt Count 8 L* D (150-450) k/uL Plt Count Comment MPV (9.5-12.2) fL Neutrophils # (1.80-7.70) X 10*3/uL Lymphocytes # (0.90-5.00) X 10*3/uL Monocytes # (0.20-1.00) X 10*3/uL Eosinophils # (0.04-0.35) X 10*3/uL Fibrinogen (200-500) mg/dL D-Dimer (<0.60) mg/L FEU Potassium 2.7 L* (3.5-5.1) mmol/L Chloride 110 H (98-107) mmol/L Carbon Dioxide 20 L (22-30) mmol/L Creatinine 0.41 L (0.52-1.04) mg/dL BUN/Creatinine Ratio (12.00-20.00) Ratio Glucose 118 H (74-99) mg/dL Calcium 7.3 L (8.4-10.2) mg/dL AST (13-35) U/L Alkaline Phosphatase (41-126) U/L Total Protein 5.2 L (6.3-8.2) g/dL Albumin 2.7 L (3.5-5.0) g/dL Albumin/Globulin Ratio (1.60-3.17) g/dL Crossmatch See Detail 12/30/21 12/31/21 12/31/21 Range/Units 20:13 05:51 05:51 WBC 0.26 L* (3.8-10.6) k/uL RBC 2.22 L (4.10-5.20) X 10*6/uL Hgb 6.5 L* (12.0-15.0) g/dL Hct 18.8 L* (37.2-46.3) % RDW 15.1 H (11.5-14.5) % Plt Count 9 L* (150-450) k/uL Plt Count Comment A MPV 14.3 H (9.5-12.2) fL Neutrophils # 0.01 L* (1.80-7.70) X 10*3/uL Lymphocytes # 0.25 L (0.90-5.00) X 10*3/uL Monocytes # 0 L (0.20-1.00) X 10*3/uL Eosinophils # 0 L (0.04-0.35) X 10*3/uL Fibrinogen (200-500) mg/dL D-Dimer (<0.60) mg/L FEU Potassium 2.9 L 3.4 L (3.5-5.1) mmol/L Chloride (98-107) mmol/L Carbon Dioxide 19.9 L (22-30) mmol/L Creatinine 0.4 L (0.52-1.04) mg/dL BUN/Creatinine Ratio 25.00 H (12.00-20.00) Ratio Glucose (74-99) mg/dL Calcium 7.7 L (8.4-10.2) mg/dL AST 9 L (13-35) U/L Alkaline Phosphatase 34 L (41-126) U/L Total Protein 4.9 L (6.3-8.2) g/dL Albumin 2.9 L (3.5-5.0) g/dL Albumin/Globulin Ratio 1.45 L (1.60-3.17) g/dL Crossmatch 12/31/21 Range/Units 05:51 WBC (3.8-10.6) k/uL RBC (4.10-5.20) X 10*6/uL Hgb (12.0-15.0) g/dL Hct (37.2-46.3) % RDW (11.5-14.5) % Plt Count (150-450) k/uL Plt Count Comment MPV (9.5-12.2) fL Neutrophils # (1.80-7.70) X 10*3/uL Lymphocytes # (0.90-5.00) X 10*3/uL Monocytes # (0.20-1.00) X 10*3/uL Eosinophils # (0.04-0.35) X 10*3/uL Fibrinogen 537 H (200-500) mg/dL D-Dimer 6.31 H (<0.60) mg/L FEU Potassium (3.5-5.1) mmol/L Chloride (98-107) mmol/L Carbon Dioxide (22-30) mmol/L Creatinine (0.52-1.04) mg/dL BUN/Creatinine Ratio (12.00-20.00) Ratio Glucose (74-99) mg/dL Calcium (8.4-10.2) mg/dL AST (13-35) U/L Alkaline Phosphatase (41-126) U/L Total Protein (6.3-8.2) g/dL Albumin (3.5-5.0) g/dL Albumin/Globulin Ratio (1.60-3.17) g/dL Crossmatch Microbiology - Last 24 Hours (Table) 12/27/21 21:38 Blood Culture Gram Stain - Final Blood Blood Culture - Final Micrococcus species 12/27/21 21:46 Blood Culture - Preliminary Blood No Growth after 72 hours 12/27/21 21:45 Blood Culture - Preliminary Blood No Growth after 72 hours 12/29/21 17:16 Blood Culture - Preliminary Blood No Growth after 24 hours 12/29/21 15:04 Blood Culture - Preliminary Blood No Growth after 24 hours 12/27/21 21:40 Blood Culture Gram Stain - Final Blood Blood Culture - Final Micrococcus species
[2021-12-31] MEDS: VANCOMYCIN 1,750 MG in SODIUM CHLORIDE 0.9% 500 ML 500 ML IVPB SCH (12:16)
--- NOTE | 2021-12-31 17:51 | P.PN ---
Subjective Progress Note Date: 12/31/21 Transfusion PRBC and PLatelets irradiated today, 1/2 gram positive cocci in blood cultures,, ID following. Vanco and Cefepime continued. Afebrile Objective - Vital Signs Vital signs: Vital Signs Temp 98.7 F 12/31/21 12:19 Pulse 80 12/31/21 12:19 Resp 18 12/31/21 12:19 BP 151/83 12/31/21 12:19 Pulse Ox 100 12/31/21 12:19 FiO2 Intake & Output 12/30/21 12/31/21 12/31/21 18:59 06:59 18:59 Intake Total 274 620 Output Total 1 3 Balance 273 617 Weight 118 kg Intake: Blood Product 274 620 Platelet Pheresis Pas 274 Psoralen Unit [id number] Rc Irr As1 Unit 310 [id number] Rc Irr As1 Unit 0 310 [id number] Output: Urine 1 3 Other: Voiding Method Toilet # Voids 1 1 - Exam - Constitutional General appearance: Present: average body habitus, cooperative, no acute distress - EENT EENT Comment(s): bilaterl buccal wet purpura Eyes: Present: anicteric sclerae, EOMI ENT: Present: hearing grossly normal - Respiratory Respiratory: bilateral: CTA - Cardiovascular Rhythm: regular Heart sounds: normal: S1, S2 Abnormal Heart Sounds: Absent: systolic murmur, diastolic murmur, rub, S3 Gallop, S4 Gallop, click, other - Peripheral edema leg Peripheral Edema: bilateral: None - Gastrointestinal General gastrointestinal: Present: normal bowel sounds, soft, tenderness (very mild, no rebound, not rigid) - Integumentary Integumentary: Present: normal, pale - Neurologic Neurologic: Present: CNII-XII intact - Musculoskeletal Musculoskeletal: Present: generalized weakness, strength equal bilaterally - Psychiatric Psychiatric: Present: A&O x's 3, appropriate affect, intact judgment & insight - Labs CBC & Chem 7: 12/31/21 05:51 12/31/21 05:51 Labs: Abnormal Lab Results - Last 24 Hours (Table) 12/28/21 12/30/21 12/31/21 Range/Units 00:33 20:13 05:51 WBC 0.26 L* (4.50-10.00) X 10*3/uL RBC 2.22 L (4.10-5.20) X 10*6/uL Hgb 6.5 L* (12.0-15.0) g/dL Hct 18.8 L* (37.2-46.3) % RDW 15.1 H (11.5-14.5) % Plt Count 9 L* (140-440) X 10*3/uL Plt Count Comment A MPV 14.3 H (9.5-12.2) fL Neutrophils # 0.01 L* (1.80-7.70) X 10*3/uL Lymphocytes # 0.25 L (0.90-5.00) X 10*3/uL Monocytes # 0 L (0.20-1.00) X 10*3/uL Eosinophils # 0 L (0.04-0.35) X 10*3/uL Fibrinogen (200-500) mg/dL D-Dimer (<0.60) mg/L FEU Potassium 2.9 L (3.5-5.1) mmol/L Carbon Dioxide (20.0-27.5) mmol/L Creatinine (0.6-1.5) mg/dL BUN/Creatinine Ratio (12.00-20.00) Ratio Calcium (8.7-10.3) mg/dL AST (13-35) U/L Alkaline Phosphatase (41-126) U/L Total Protein (6.2-8.2) g/dL Albumin (3.8-4.9) g/dL Albumin/Globulin Ratio (1.60-3.17) g/dL Crossmatch See Detail 12/31/21 12/31/21 Range/Units 05:51 05:51 WBC (4.50-10.00) X 10*3/uL RBC (4.10-5.20) X 10*6/uL Hgb (12.0-15.0) g/dL Hct (37.2-46.3) % RDW (11.5-14.5) % Plt Count (140-440) X 10*3/uL Plt Count Comment MPV (9.5-12.2) fL Neutrophils # (1.80-7.70) X 10*3/uL Lymphocytes # (0.90-5.00) X 10*3/uL Monocytes # (0.20-1.00) X 10*3/uL Eosinophils # (0.04-0.35) X 10*3/uL Fibrinogen 537 H (200-500) mg/dL D-Dimer 6.31 H (<0.60) mg/L FEU Potassium 3.4 L (3.5-5.1) mmol/L Carbon Dioxide 19.9 L (20.0-27.5) mmol/L Creatinine 0.4 L (0.6-1.5) mg/dL BUN/Creatinine Ratio 25.00 H (12.00-20.00) Ratio Calcium 7.7 L (8.7-10.3) mg/dL AST 9 L (13-35) U/L Alkaline Phosphatase 34 L (41-126) U/L Total Protein 4.9 L (6.2-8.2) g/dL Albumin 2.9 L (3.8-4.9) g/dL Albumin/Globulin Ratio 1.45 L (1.60-3.17) g/dL Crossmatch Microbiology - Last 24 Hours (Table) 12/27/21 21:38 Blood Culture Gram Stain - Final Blood Blood Culture - Final Micrococcus species 12/27/21 21:46 Blood Culture - Preliminary Blood No Growth after 72 hours 12/27/21 21:45 Blood Culture - Preliminary Blood No Growth after 72 hours 12/29/21 17:16 Blood Culture - Preliminary Blood No Growth after 24 hours 12/29/21 15:04 Blood Culture - Preliminary Blood No Growth after 24 hours Assessment and Plan Plan: Assessment and Plan (1) Neutropenic fever Current Visit: Yes Status: Acute Code(s): D70.9 - NEUTROPENIA, UNSPECIFIED; R50.81 - FEVER PRESENTING WITH CONDITIONS CLASSIFIED ELSEWHERE SNOMED Code(s): 330656581 (2) Pancytopenia Current Visit: Yes Status: Acute Priority: High Code(s): D61.818 - OTHER PANCYTOPENIA SNOMED Code(s): 012225456 (3) Acute myeloid leukemia Current Visit: No Status: Acute Priority: High Code(s): C92.00 - ACUTE MYELOBLASTIC LEUKEMIA, NOT HAVING ACHIEVED REMISSION SNOMED Code(s): 16654535 Plan: Pancultures have been collected, one positive BC for micrococcus, gram positive ending review by ID. Viral panel negative, C. difficile negative. Afebrile today Empiric antibiotics continue. Patient remains on antiviral and antifungal medications. Transfuse with irradiated blood products only. Transfuse for platelets less than 10,000 or if symptomatic-pt is currently symptomatic with wet purpura, plt ordered. Ordered 1 unit PRBC Today and one unit of platelet If signs of bleeding transfuse Periodic coags, monitor for DIC ordered. No G-CSF, as patient is not confirmed remission Based on exam today, pt reports will offer clear liquid diet. Asked pt to be very conservative as to how much she takes in and to stop immediately if she has abd discomfort. Patient encouraged to contact staff if she needs to use the bathroom or get up, pt is NOT to get up alone Salt and soda, oral care Supportive medications Daily follow-up CBC daily Ok to advance Clear liquids
[2021-12-31] MEDS: POTASSIUM CHLORIDE 10 MEQ in WATER FOR INJECTION 1 100ML.BAG IVPB SCH ×2 (21:30→23:31)
[2021-12-31] MEDS: VERAPAMIL SR 120 MG TABLET.ER PO SCH (21:38)
[2021-12-31] MEDS: OLANZapine 2.5 MG TAB PO SCH (21:38)
[2021-12-31] MEDS ORDERED: POTASSIUM CHLORIDE 10 MEQ in WATER FOR INJECTION 1 100ML.BAG IVPB SCH (23:15)
--- NOTE | 2021-12-31 23:52 | P.PN ---
Subjective Progress Note Date: 12/31/21 Principal diagnosis: Febrile neutropenia Patient is a 66-year-old female with a past medical history significant for hypertension acute myeloid leukemia in this patient who recently did have induction chemotherapy completed on 12/24/2021 through the left arm PICC line presenting to the hospital for fever initial work-up negative except CT abdominal pelvis did show some jejunal wall thickening could be gastroenteritis. On today's evaluation that is 12/31/2021, patient is afebrile today, the patient is breathing comfortably on room air no chest pain no shortness of breath or cough no nausea vomiting no abdominal pain , diarrhea has resolved Objective - Vital Signs Vital signs: Vital Signs Temp 99.8 F H 12/31/21 19:58 Pulse 81 12/31/21 19:58 Resp 16 12/31/21 19:58 BP 153/86 12/31/21 19:58 Pulse Ox 99 12/31/21 19:58 FiO2 Intake & Output 12/31/21 12/31/21 01/01/22 06:59 18:59 06:59 Intake Total 620 0 310 Output Total 3 Balance 617 0 310 Weight 118 kg Intake: Blood Product 620 0 310 Rc Irr As1 Unit 0 310 [id number] Rc Irr As1 Unit 310 [id number] Rc Irr As1 Unit 310 [id number] Output: Urine 3 Other: Voiding Method Toilet # Voids 4 # Bowel Movements 2 - Exam GENERAL DESCRIPTION: Elderly female up in the chair, no distress. No tachypnea or accessory muscle of respiration use. LUNGS: Unlabored breathing. Clear to auscultation anteriorly. No wheeze or crackle. HEART: S1, S2, regular rate and rhythm. No loud murmur ABDOMEN: Soft, no tenderness , guarding or rigidity, no organomegaly EXTREMITIES: No edema of feet. - Labs CBC & Chem 7: 12/31/21 05:51 12/31/21 05:51 Labs: Abnormal Lab Results - Last 24 Hours (Table) 12/28/21 12/31/21 12/31/21 Range/Units 00:33 05:51 05:51 WBC 0.26 L* (4.50-10.00) X 10*3/uL RBC 2.22 L (4.10-5.20) X 10*6/uL Hgb 6.5 L* (12.0-15.0) g/dL Hct 18.8 L* (37.2-46.3) % RDW 15.1 H (11.5-14.5) % Plt Count 9 L* (140-440) X 10*3/uL Plt Count Comment A MPV 14.3 H (9.5-12.2) fL Neutrophils # 0.01 L* (1.80-7.70) X 10*3/uL Lymphocytes # 0.25 L (0.90-5.00) X 10*3/uL Monocytes # 0 L (0.20-1.00) X 10*3/uL Eosinophils # 0 L (0.04-0.35) X 10*3/uL Fibrinogen (200-500) mg/dL D-Dimer (<0.60) mg/L FEU Potassium 3.4 L (3.5-5.5) mmol/L Carbon Dioxide 19.9 L (20.0-27.5) mmol/L Creatinine 0.4 L (0.6-1.5) mg/dL BUN/Creatinine Ratio 25.00 H (12.00-20.00) Ratio Calcium 7.7 L (8.7-10.3) mg/dL AST 9 L (13-35) U/L Alkaline Phosphatase 34 L (41-126) U/L Total Protein 4.9 L (6.2-8.2) g/dL Albumin 2.9 L (3.8-4.9) g/dL Albumin/Globulin Ratio 1.45 L (1.60-3.17) g/dL Crossmatch See Detail 12/31/21 12/31/21 Range/Units 05:51 12:52 WBC (4.50-10.00) X 10*3/uL RBC (4.10-5.20) X 10*6/uL Hgb (12.0-15.0) g/dL Hct (37.2-46.3) % RDW (11.5-14.5) % Plt Count (140-440) X 10*3/uL Plt Count Comment MPV (9.5-12.2) fL Neutrophils # (1.80-7.70) X 10*3/uL Lymphocytes # (0.90-5.00) X 10*3/uL Monocytes # (0.20-1.00) X 10*3/uL Eosinophils # (0.04-0.35) X 10*3/uL Fibrinogen 537 H (200-500) mg/dL D-Dimer 6.31 H (<0.60) mg/L FEU Potassium (3.5-5.5) mmol/L Carbon Dioxide (20.0-27.5) mmol/L Creatinine (0.6-1.5) mg/dL BUN/Creatinine Ratio (12.00-20.00) Ratio Calcium (8.7-10.3) mg/dL AST (13-35) U/L Alkaline Phosphatase (41-126) U/L Total Protein (6.2-8.2) g/dL Albumin (3.8-4.9) g/dL Albumin/Globulin Ratio (1.60-3.17) g/dL Crossmatch See Detail Microbiology - Last 24 Hours (Table) 12/29/21 17:16 Blood Culture - Preliminary Blood No Growth after 48 hours 12/29/21 15:04 Blood Culture - Preliminary Blood No Growth after 48 hours 12/27/21 21:38 Blood Culture Gram Stain - Final Blood Blood Culture - Final Micrococcus species 12/27/21 21:46 Blood Culture - Preliminary Blood No Growth after 72 hours 12/27/21 21:45 Blood Culture - Preliminary Blood No Growth after 72 hours Assessment and Plan (1) Neutropenic fever Current Visit: Yes Status: Acute Code(s): D70.9 - NEUTROPENIA, UNSPECIFIED; R50.81 - FEVER PRESENTING WITH CONDITIONS CLASSIFIED ELSEWHERE SNOMED Code(s): 017394948 Plan: 1patient presented to hospital with sepsis in this patient who did have a fever neutropenia in this patient recently completed her induction chemotherapy work- up so far negative with a chest x-ray was negative urine has been negative no significant tenderness to abdominal wall and a question of possible PICC line infection. 2Patient blood culture with micrococcus species questionably contamination repeat blood culture so far negative 3patient has clinical improvement and will continue with the vancomycin and cefepime , And monitor clinical course closely Time with Patient: Less than 30
[2022-01-01] MEDS: VANCOMYCIN 1,750 MG in SODIUM CHLORIDE 0.9% 500 ML 500 ML IVPB SCH ×2 (01:19→12:07)
[2022-01-01] MEDS: SALT AND SODA MOUTHWASH 1,000 ML PO SCH ×5 (01:23→20:11)
[2022-01-01] MEDS: ACETAMINOPHEN TAB 325 MG TAB PO PRN ×3 (03:59→19:58)
[2022-01-01] MEDS: CEFEPIME 2 GM in SODIUM CHLORIDE 0.9% 100 ML IVPB SCH ×3 (04:43→20:12)
[2022-01-01] MEDS: SODIUM CHLORIDE 0.9% 1,000 ML IV SCH (04:44)
[2022-01-01 07:08] LABS: HCT 21.4 % (34.0-46.0); Hyperchromasia Slight; MCH 30.4 pg (25.0-35.0); MCHC 36.2 g/dL (31.0-37.0); Mean Platelet Volume 7.5; Poikilocytosis Slight; RBC 2.55 m/uL (3.80-5.40); RDW 14.5 % (11.5-15.5)
[2022-01-01 07:29] LABS: HGB 7.8 gm/dL (11.4-16.0); Platelet Count 7 k/uL (150-450); WBC 0.5 k/uL (3.8-10.6)
[2022-01-01 08:05] LABS: ALT 18 U/L (4-34); AST 15 U/L (14-36); African American GFR (CKD) >90 (>60 ml/min/1.73 sqM); Albumin 2.8 g/dL (3.5-5.0); Albumin/Globulin Ratio 1.1; Alkaline Phosphatase 37 U/L (38-126); Anion Gap 7 mmol/L; Blood Urea Nitrogen 6 mg/dL (7-17); Calcium 7.6 mg/dL (8.4-10.2); Carbon Dioxide 22 mmol/L (22-30); Chloride 107 mmol/L (98-107); Globulin 2.6 g/dL; Glucose 126 mg/dL (74-99); Non-African American GFR(CKD) >90 (>60 ml/min/1.73 sqM); Potassium 3.3 mmol/L (3.5-5.1); Sodium 136 mmol/L (137-145); Total Bilirubin 1.2 mg/dL (0.2-1.3); Total Protein 5.4 g/dL (6.3-8.2)
[2022-01-01] MEDS: POTASSIUM CHLORIDE ER 20 MEQ TAB.ER PO SCH ×2 (08:51→10:12)
[2022-01-01] MEDS: FLUCONAZOLE 100 MG TAB PO SCH (08:52)
[2022-01-01] MEDS: MAG HYDROX/AL HYDROX/SIMETH 30 ML, diphenhydrAMINE ELIXIR 75 MG, LIDOCAINE VISCOUS 2% 3... PO SCH ×6 (08:52→21:19)
[2022-01-01] MEDS: metFORMIN 500 MG TAB PO SCH (08:54)
--- NOTE | 2022-01-01 15:15 | P.PN ---
Subjective Progress Note Date: 01/01/22 Patient is a very pleasant 65-year-old female with a past medical history of hypertension, GERD, diabetes mellitus, and AML who was recently admitted under the hematology/oncology team undergoing induction chemotherapeutic treatment with Cytarabine from 12/16 till12/24. Patient was all right until yesterday evening when she started noticing fevers. Fevers were high-grade. Patient d enies any shortness of breath. There was no complain of any cough. Patient did notice she was having diarrhea which was nonbloody. Patient denied any abdominal pain. She denied any urinary symptoms. Patient was empirically on ciprofloxacin, fluconazole, acyclovir. Patient was worked up in the ER, initial blood work showed WBC of 0.2, hemoglobin of 7.3 and platelet count of [address] abdomen and pelvis done showed some proximal jejunal wall thickening that could be gastroenteritis, there was no evidence of an diverticulitis. Patient was started on broad-spectrum antibiotics and was admitted to hospitalist service 12/29/21. Patient seen and examined. Patient afebrile since yesterday evening, states she feels better. Hemoglobin this morning is 4.9, platelet count is 1. Vital signs other than that are stable 12/30/21. Patient seen and examined. T-max of 100.9. Platelet count was low, being transfused platelets. Hemoglobin is 5.8. No evidence of any blood in the stools 12/31/21. Patient Seen and examined.. Complaining of swelling of lower extremities. Patient has gained 10 KGs of weight while in the hospital. 01/01/22. Patient seen and examined. Hemoglobin this morning is 7.8, platelet count of 7. REVIEW OF SYSTEMS: CONSTITUTIONAL: No fever, no malaise,. CARDIOVASCULAR: No chest pain, no palpitations, no syncope. PULMONARY: No shortness of breath, no cough, GASTROINTESTINAL: No diarrhea, no nausea, no vomiting, no abdominal pain. NEUROLOGICAL: No headaches, no weakness, PHYSICAL EXAMINATION: GENERAL: The patient is alert and oriented x3, not in any acute distress. Well developed, well nourished. HEENT: Pupils are round and equally reacting to light. EOMI. No scleral icterus. No conjunctival pallor. Normocephalic, atraumatic. No pharyngeal erythema. No thyromegaly. CARDIOVASCULAR: S1 and S2 present. No murmurs, rubs, or gallops. PULMONARY: Chest is clear to auscultation, no wheezing or crackles. ABDOMEN: Soft, nontender, nondistended, normoactive bowel sounds. No palpable organomegaly. MUSCULOSKELETAL: No joint swelling or deformity. EXTREMITIES: 2+ pitting edema of lower extremities bilaterally NEUROLOGICAL: Gross neurological examination did not reveal any focal deficits. SKIN: Bruising on chin Assessment and plan Neutropenic fevers Pancytopenia acute myeloid leukemia Diabetes mellitus Hypertension Hypomagnesemia Plan; Monitor CBC Monitor electrolytes Follow-up on blood cultures Bleeding precautions Neutropenic precautions Continue broad-spectrum antibiotics in the form of cefepime and vancomycin Continue acyclovir Follow-up in ID recommendations follow-up on hematology oncology recommendations Objective - Vital Signs Vital signs: Vital Signs Temp 98.4 F 01/01/22 12:46 Pulse 81 01/01/22 12:46 Resp 16 01/01/22 12:46 BP 149/84 01/01/22 12:46 Pulse Ox 100 01/01/22 12:46 FiO2 Intake & Output 12/31/21 01/01/22 01/01/22 18:59 06:59 18:59 Intake Total 0 900 280 Balance 0 900 280 Weight 118 kg 115.5 kg Intake: Oral 590 Blood Product 0 310 280 Platelet Pheresis Pas 280 Psoralen Unit [id number] Rc Irr As1 Unit 0 310 [id number] Other: Voiding Method Toilet Toilet # Voids 4 1 1 # Bowel Movements 2 - Labs CBC & Chem 7: 01/01/22 06:09 01/01/22 06:09 Labs: Abnormal Lab Results - Last 24 Hours (Table) 12/31/21 01/01/22 01/01/22 Range/Units 12:52 06:09 06:09 WBC 0.5 L* (3.8-10.6) k/uL RBC 2.55 L (3.80-5.40) m/uL Hgb 7.8 L D (11.4-16.0) gm/dL Hct 21.4 L (34.0-46.0) % Plt Count 7 L* (150-450) k/uL Sodium 136 L (137-145) mmol/L Potassium 3.3 L (3.5-5.1) mmol/L BUN 6 L (7-17) mg/dL Creatinine 0.38 L (0.52-1.04) mg/dL Glucose 126 H (74-99) mg/dL Calcium 7.6 L (8.4-10.2) mg/dL Alkaline Phosphatase 37 L (38-126) U/L Total Protein 5.4 L (6.3-8.2) g/dL Albumin 2.8 L (3.5-5.0) g/dL Crossmatch See Detail Microbiology - Last 24 Hours (Table) 12/27/21 21:46 Blood Culture - Preliminary Blood No Growth after 96 hours 12/27/21 21:45 Blood Culture - Preliminary Blood No Growth after 96 hours 12/29/21 17:16 Blood Culture - Preliminary Blood No Growth after 48 hours 12/29/21 15:04 Blood Culture - Preliminary Blood No Growth after 48 hours 12/27/21 21:38 Blood Culture Gram Stain - Final Blood Blood Culture - Final Micrococcus species
[2022-01-01] MEDS: OLANZapine 2.5 MG TAB PO SCH (19:58)
[2022-01-01] MEDS: VERAPAMIL SR 120 MG TABLET.ER PO SCH (19:58)
[2022-01-02] MEDS: VANCOMYCIN 1,750 MG in SODIUM CHLORIDE 0.9% 500 ML 500 ML IVPB SCH ×2 (00:48→12:45)
[2022-01-02] MEDS: ACETAMINOPHEN TAB 325 MG TAB PO PRN ×2 (02:45→22:54)
[2022-01-02] MEDS: SALT AND SODA MOUTHWASH 1,000 ML PO SCH ×6 (03:57→23:47)
[2022-01-02] MEDS: CEFEPIME 2 GM in SODIUM CHLORIDE 0.9% 100 ML IVPB SCH ×3 (04:01→19:59)
[2022-01-02] MEDS: SODIUM CHLORIDE 0.9% 1,000 ML IV SCH ×2 (04:02→22:54)
[2022-01-02 06:59] LABS: INR 1.1 (<1.2); Prothrombin Time 11.8 sec (9.0-12.0)
[2022-01-02] MEDS: FLUCONAZOLE 100 MG TAB PO SCH (08:56)
[2022-01-02] MEDS: MAG HYDROX/AL HYDROX/SIMETH 30 ML, diphenhydrAMINE ELIXIR 75 MG, LIDOCAINE VISCOUS 2% 3... PO SCH ×6 (08:56→21:04)
[2022-01-02] MEDS: metFORMIN 500 MG TAB PO SCH (08:56)
[2022-01-02 09:36] LABS: HCT 19.3 % (37.2-46.3); HGB 7.1 g/dL (12.0-15.0); MCH 30.3 pg (27.0-32.0); MCHC 36.8 g/dL (32.0-37.0); MCV 82.5 fL (80.0-97.0); NRBC Per 100 WBC 0 /100 WBCS (0.0-0.0); Platelet Count 11 X 10*3/uL (140-440); RBC 2.34 X 10*6/uL (4.10-5.20); RDW 14.2 % (11.5-14.5); WBC 0.42 X 10*3/uL (4.50-10.00)
[2022-01-02 10:16] LABS: Basophils # (A) 0 X 10*3/uL (0.00-0.10); Basophils % (A) 0 %; Eosinophils # (A) 0 X 10*3/uL (0.04-0.35); Eosinophils % (A) 0 %; Immature Grans, Automated 0 %; Lymphocytes # (A) 0.41 X 10*3/uL (0.90-5.00); Lymphocytes % (A) 97.6 %; Monocytes # (A) 0.01 X 10*3/uL (0.20-1.00); Monocytes % (A) 2.4 %; Neutrophils # (A) 0 X 10*3/uL (1.80-7.70); Neutrophils % (A) 0 %
[2022-01-02 10:17] LABS: Immature Platelet Fraction 1.1 % (1.1-6.1); Rouleaux PRESENT
[2022-01-02] MEDS ORDERED: VANCOMYCIN TROUGH DUE 1 EACH MISC MISCELLANE ONE (11:00)
[2022-01-02] MEDS ORDERED: CYCLOBENZAPRINE 5 MG TAB PO PRN (13:55)
--- NOTE | 2022-01-02 14:06 | P.PN ---
Subjective Progress Note Date: 01/02/22 Patient is a very pleasant 65-year-old female with a past medical history of hypertension, GERD, diabetes mellitus, and AML who was recently admitted under the hematology/oncology team undergoing induction chemotherapeutic treatment with Cytarabine from 12/16 till12/24. Patient was all right until yesterday evening when she started noticing fevers. Fevers were high-grade. Patient d enies any shortness of breath. There was no complain of any cough. Patient did notice she was having diarrhea which was nonbloody. Patient denied any abdominal pain. She denied any urinary symptoms. Patient was empirically on ciprofloxacin, fluconazole, acyclovir. Patient was worked up in the ER, initial blood work showed WBC of 0.2, hemoglobin of 7.3 and platelet count of [address] abdomen and pelvis done showed some proximal jejunal wall thickening that could be gastroenteritis, there was no evidence of an diverticulitis. Patient was started on broad-spectrum antibiotics and was admitted to hospitalist service 12/29/21. Patient seen and examined. Patient afebrile since yesterday evening, states she feels better. Hemoglobin this morning is 4.9, platelet count is 1. Vital signs other than that are stable 12/30/21. Patient seen and examined. T-max of 100.9. Platelet count was low, being transfused platelets. Hemoglobin is 5.8. No evidence of any blood in the stools 12/31/21. Patient Seen and examined.. Complaining of swelling of lower extremities. Patient has gained 10 KGs of weight while in the hospital. 01/01/22. Patient seen and examined. Hemoglobin this morning is 7.8, platelet count of 7. 01/02. Patient seen and examined. Complaining of neck spasm. Hemoglobin this morning is 7.1, platelet count is 11 REVIEW OF SYSTEMS: CONSTITUTIONAL: No fever, no malaise,. CARDIOVASCULAR: No chest pain, no palpitations, no syncope. PULMONARY: No shortness of breath, no cough, GASTROINTESTINAL: No diarrhea, no nausea, no abdominal pain. NEUROLOGICAL: No headaches, no weakness, PHYSICAL EXAMINATION: GENERAL: The patient is alert and oriented x3, not in any acute distress. Well developed, well nourished. HEENT: Pupils are round and equally reacting to light. EOMI. No scleral icterus. No conjunctival pallor. Normocephalic, atraumatic. No pharyngeal erythema. No thyromegaly. CARDIOVASCULAR: S1 and S2 present. No murmurs, rubs, or gallops. PULMONARY: Chest is clear to auscultation, no wheezing or crackles. ABDOMEN: Soft, nontender, nondistended, normoactive bowel sounds. No palpable organomegaly. MUSCULOSKELETAL: No joint swelling or deformity. EXTREMITIES: 2+ pitting edema of lower extremities bilaterally NEUROLOGICAL: Gross neurological examination did not reveal any focal deficits. SKIN: Bruising on chin Assessment and plan Neutropenic fevers Pancytopenia acute myeloid leukemia Diabetes mellitus Hypertension Hypomagnesemia Plan; Monitor CBC Monitor electrolytes Follow-up on blood cultures Bleeding precautions Neutropenic precautions Continue broad-spectrum antibiotics in the form of cefepime and vancomycin Continue acyclovir Follow-up in ID recommendations follow-up on hematology oncology recommendations Objective - Vital Signs Vital signs: Vital Signs Temp 98.4 F 01/02/22 11:16 Pulse 82 01/02/22 11:16 Resp 18 01/02/22 11:16 BP 148/88 01/02/22 11:16 Pulse Ox 99 01/02/22 11:16 FiO2 Intake & Output 01/01/22 01/02/22 01/02/22 18:59 06:59 18:59 Intake Total 780 400 Balance 780 400 Weight 114 kg 114 kg Intake: Oral 500 400 Blood Product 280 Platelet Pheresis Pas 280 Psoralen Unit [id number] Other: Voiding Method Toilet Toilet Toilet # Voids 3 6 3 - Labs CBC & Chem 7: 01/02/22 06:09 01/01/22 14:52 Labs: Abnormal Lab Results - Last 24 Hours (Table) 01/02/22 01/02/22 Range/Units 06:09 06:09 WBC 0.42 L* (4.50-10.00) X 10*3/uL RBC 2.34 L (4.10-5.20) X 10*6/uL Hgb 7.1 L (12.0-15.0) g/dL Hct 19.3 L* (37.2-46.3) % Plt Count 11 L* (140-440) X 10*3/uL Plt Count Comment A Neutrophils # 0 L* (1.80-7.70) X 10*3/uL Lymphocytes # 0.41 L (0.90-5.00) X 10*3/uL Monocytes # 0.01 L (0.20-1.00) X 10*3/uL Eosinophils # 0 L (0.04-0.35) X 10*3/uL Fibrinogen 508 H (200-500) mg/dL Microbiology - Last 24 Hours (Table) 12/27/21 21:46 Blood Culture - Preliminary Blood No Growth after 120 hours 12/27/21 21:45 Blood Culture - Preliminary Blood No Growth after 120 hours 12/29/21 17:16 Blood Culture - Preliminary Blood No Growth after 72 hours 12/29/21 15:04 Blood Culture - Preliminary Blood No Growth after 72 hours
[2022-01-02 14:44] LABS: HGB 7.4 gm/dL (11.4-16.0); MCH 31.6 pg (25.0-35.0); MCHC 37.2 g/dL (31.0-37.0); Mean Platelet Volume 7.7; Poikilocytosis Slight; RBC 2.34 m/uL (3.80-5.40); RDW 13.8 % (11.5-15.5)
[2022-01-02 14:45] LABS: Magnesium 1.4 mg/dL (1.6-2.3)
[2022-01-02 14:48] LABS: HCT 19.9 % (34.0-46.0); Platelet Count 9 k/uL (150-450)
[2022-01-02 15:17] LABS: African American GFR (CKD) 125.9 (60.0-200.0); Albumin 3.2 g/dL (3.8-4.9); Albumin/Globulin Ratio 1.37 (1.60-3.17); Anion Gap 13.6 mmol/L (10.00-18.00); BUN/Creat Ratio 10.1 Ratio (12.00-20.00); Blood Urea Nitrogen 4.1 mg/dL (9.0-27.0); Carbon Dioxide 21.7 mmol/L (20.0-27.5); Globulin 2.3 g/dL (1.6-3.3); Non-African American GFR(CKD) 108.6 (60.0-200.0); Potassium 2.7 mmol/L (3.5-5.5); Total Bilirubin 0.7 mg/dL (0.30-1.20); Total Protein 5.5 g/dL (6.2-8.2)
[2022-01-02 15:29] LABS: Poikilocytosis (M) Present; Rouleaux Present; WBC 0.4 k/uL (3.8-10.6)
[2022-01-02] MEDS ORDERED: POTASSIUM CHLORIDE 20 MEQ in WATER FOR INJECTION 1 100ML.BAG IVPB SCH (15:30)
[2022-01-02] MEDS: POTASSIUM CHLORIDE ER 20 MEQ TAB.ER PO SCH ×3 (16:40→19:59)
--- NOTE | 2022-01-02 19:56 | P.PN ---
Subjective Progress Note Date: 01/02/22 Platelets and Hemoglobin stable, no transfusions. Previous labs show deficiency in B and D will repeat and supp. Afebrile over 24 hours tolerating clears with out abdominal pain Objective - Vital Signs Vital signs: Vital Signs Temp 98.4 F 01/02/22 11:16 Pulse 82 01/02/22 11:16 Resp 18 01/02/22 11:16 BP 148/88 01/02/22 11:16 Pulse Ox 99 01/02/22 11:16 FiO2 Intake & Output 01/01/22 01/02/22 01/02/22 18:59 06:59 18:59 Intake Total 780 400 Balance 780 400 Weight 114 kg Intake: Oral 500 400 Blood Product 280 Platelet Pheresis Pas 280 Psoralen Unit [id number] Other: Voiding Method Toilet Toilet Toilet # Voids 3 6 3 - Exam - Constitutional General appearance: Present: average body habitus, cooperative, no acute distress - EENT EENT Comment(s): bilaterl buccal wet purpura Eyes: Present: anicteric sclerae, EOMI ENT: Present: hearing grossly normal - Respiratory Respiratory: bilateral: CTA - Cardiovascular Rhythm: regular Heart sounds: normal: S1, S2 Abnormal Heart Sounds: Absent: systolic murmur, diastolic murmur, rub, S3 Gallop, S4 Gallop, click, other - Peripheral edema leg Peripheral Edema: bilateral: None - Gastrointestinal General gastrointestinal: Present: normal bowel sounds, soft, tenderness (very mild, no rebound, not rigid) - Integumentary Integumentary: Present: normal, pale - Neurologic Neurologic: Present: CNII-XII intact - Musculoskeletal Musculoskeletal: Present: generalized weakness, strength equal bilaterally - Psychiatric Psychiatric: Present: A&O x's 3, appropriate affect, intact judgment & insight - Labs CBC & Chem 7: 01/02/22 06:09 01/01/22 14:52 Labs: Abnormal Lab Results - Last 24 Hours (Table) 01/02/22 01/02/22 Range/Units 06:09 06:09 WBC 0.42 L* (4.50-10.00) X 10*3/uL RBC 2.34 L (4.10-5.20) X 10*6/uL Hgb 7.1 L (12.0-15.0) g/dL Hct 19.3 L* (37.2-46.3) % Plt Count 11 L* (140-440) X 10*3/uL Plt Count Comment A Neutrophils # 0 L* (1.80-7.70) X 10*3/uL Lymphocytes # 0.41 L (0.90-5.00) X 10*3/uL Monocytes # 0.01 L (0.20-1.00) X 10*3/uL Eosinophils # 0 L (0.04-0.35) X 10*3/uL Fibrinogen 508 H (200-500) mg/dL Microbiology - Last 24 Hours (Table) 12/27/21 21:46 Blood Culture - Preliminary Blood No Growth after 120 hours 12/27/21 21:45 Blood Culture - Preliminary Blood No Growth after 120 hours 12/29/21 17:16 Blood Culture - Preliminary Blood No Growth after 72 hours 12/29/21 15:04 Blood Culture - Preliminary Blood No Growth after 72 hours Assessment and Plan Plan: Assessment and Plan (1) Neutropenic fever Current Visit: Yes Status: Acute Code(s): D70.9 - NEUTROPENIA, UNSPECIFIED; R50.81 - FEVER PRESENTING WITH CONDITIONS CLASSIFIED ELSEWHERE SNOMED Code(s): 147820151 (2) Pancytopenia Current Visit: Yes Status: Acute Priority: High Code(s): D61.818 - OTHER PANCYTOPENIA SNOMED Code(s): 907227415 (3) Acute myeloid leukemia Current Visit: No Status: Acute Priority: High Code(s): C92.00 - ACUTE MYELOBLASTIC LEUKEMIA, NOT HAVING ACHIEVED REMISSION SNOMED Code(s): 54597120 Plan: Pancultures have been collected, one positive BC for micrococcus, gram positive ending review by ID. Viral panel negative, C. difficile negative. Afebrile today Empiric antibiotics continue. Patient remains on antiviral and antifungal me dications. Transfuse with irradiated blood products only. Transfuse for platelets less than 10,000 or if symptomatic-pt is currently symptomatic with wet purpura, plt ordered. Ordered 1 unit PRBC Today and one unit of platelet If signs of bleeding transfuse Periodic coags, monitor for DIC ordered. No G-CSF, as patient is not confirmed remission Based on exam today, pt reports will offer clear liquid diet. Asked pt to be very conservative as to how much she takes in and to stop immediately if she has abd discomfort. Patient encouraged to contact staff if she needs to use the bathroom or get up, pt is NOT to get up alone Salt and soda, oral care Supportive medications Daily follow-up CBC daily Ok to advance Clear liquids
[2022-01-02] MEDS: VERAPAMIL SR 120 MG TABLET.ER PO SCH (20:46)
[2022-01-02] MEDS: OLANZapine 2.5 MG TAB PO SCH (20:46)
[2022-01-02] MEDS ORDERED: VANCOMYCIN 2,000 MG in SODIUM CHLORIDE 0.9% 500 ML 500 ML IVPB SCH (22:00)
--- NOTE | 2022-01-03 00:23 | P.PN ---
Subjective Progress Note Date: 01/01/22 Principal diagnosis: Febrile neutropenia Patient is a 66-year-old female with a past medical history significant for hypertension acute myeloid leukemia in this patient who recently did have induction chemotherapy completed on 12/24/2021 through the left arm PICC line presenting to the hospital for fever initial work-up negative except CT abdominal pelvis did show some jejunal wall thickening could be gastroenteritis. On today's evaluation that is 01/01/2022, patient remains to be afebrile the patient is breathing comfortably on room air no chest pain no shortness of breath or cough no nausea vomiting no abdominal pain , the patient denies having any diarrhea today Objective - Vital Signs Vital signs: Vital Signs Temp 98.4 F 01/01/22 12:46 Pulse 81 01/01/22 12:46 Resp 16 01/01/22 12:46 BP 149/84 01/01/22 12:46 Pulse Ox 100 01/01/22 12:46 FiO2 Intake & Output 12/31/21 01/01/22 01/01/22 18:59 06:59 18:59 Intake Total 0 900 280 Balance 0 900 280 Weight 118 kg 115.5 kg Intake: Oral 590 Blood Product 0 310 280 Platelet Pheresis Pas 280 Psoralen Unit [id number] Rc Irr As1 Unit 0 310 [id number] Other: Voiding Method Toilet Toilet # Voids 4 1 1 # Bowel Movements 2 - Exam GENERAL DESCRIPTION: Elderly female up in the chair, no distress. No tachypnea or accessory muscle of respiration use. LUNGS: Unlabored breathing. Clear to auscultation anteriorly. No wheeze or crackle. HEART: S1, S2, regular rate and rhythm. No loud murmur ABDOMEN: Soft, no tenderness , guarding or rigidity, no organomegaly EXTREMITIES: No edema of feet. - Labs CBC & Chem 7: 01/02/22 14:13 01/02/22 06:09 Labs: Abnormal Lab Results - Last 24 Hours (Table) 12/31/21 01/01/22 01/01/22 Range/Units 12:52 06:09 06:09 WBC 0.5 L* (3.8-10.6) k/uL RBC 2.55 L (3.80-5.40) m/uL Hgb 7.8 L D (11.4-16.0) gm/dL Hct 21.4 L (34.0-46.0) % Plt Count 7 L* (150-450) k/uL Sodium 136 L (137-145) mmol/L Potassium 3.3 L (3.5-5.1) mmol/L BUN 6 L (7-17) mg/dL Creatinine 0.38 L (0.52-1.04) mg/dL Glucose 126 H (74-99) mg/dL Calcium 7.6 L (8.4-10.2) mg/dL Alkaline Phosphatase 37 L (38-126) U/L Total Protein 5.4 L (6.3-8.2) g/dL Albumin 2.8 L (3.5-5.0) g/dL Crossmatch See Detail Microbiology - Last 24 Hours (Table) 12/27/21 21:46 Blood Culture - Preliminary Blood No Growth after 96 hours 12/27/21 21:45 Blood Culture - Preliminary Blood No Growth after 96 hours 12/29/21 17:16 Blood Culture - Preliminary Blood No Growth after 48 hours 12/29/21 15:04 Blood Culture - Preliminary Blood No Growth after 48 hours 12/27/21 21:38 Blood Culture Gram Stain - Final Blood Blood Culture - Final Micrococcus species Assessment and Plan (1) Neutropenic fever Current Visit: Yes Status: Acute Code(s): D70.9 - NEUTROPENIA, UNSPECIFIED; R50.81 - FEVER PRESENTING WITH CONDITIONS CLASSIFIED ELSEWHERE SNOMED Code(s): 802294864 Plan: 1patient presented to hospital with sepsis in this patient who did have a fever neutropenia in this patient recently completed her induction chemotherapy work- up so far negative with a chest x-ray was negative urine has been negative no significant tenderness to abdominal wall and a question of possible PICC line infection. 2Patient blood culture with micrococcus species questionably contamination repeat blood culture so far negative 3patient slowly clinically improving and will continue with the current treatment of vancomycin and cefepime , monitor clinical course closely Time with Patient: Less than 30
--- NOTE | 2022-01-03 00:25 | P.PN ---
Subjective Progress Note Date: 01/02/22 Principal diagnosis: Febrile neutropenia Patient is a 66-year-old female with a past medical history significant for hypertension acute myeloid leukemia in this patient who recently did have induction chemotherapy completed on 12/24/2021 through the left arm PICC line presenting to the hospital for fever initial work-up negative except CT abdominal pelvis did show some jejunal wall thickening could be gastroenteritis. On today's evaluation that is 01/02/2022, patient continues to be afebrile the patient is breathing comfortably on room air the patient denies chest pain no shortness of breath or cough no nausea vomiting no abdominal pain however the patient did have a multiple loose stools today no blood or mucus in stool Objective - Vital Signs Vital signs: Vital Signs Temp 98.4 F 01/02/22 11:16 Pulse 82 01/02/22 11:16 Resp 18 01/02/22 11:16 BP 148/88 01/02/22 11:16 Pulse Ox 99 01/02/22 11:16 FiO2 Intake & Output 01/01/22 01/02/22 01/02/22 18:59 06:59 18:59 Intake Total 780 400 Balance 780 400 Weight 114 kg 114 kg Intake: Oral 500 400 Blood Product 280 Platelet Pheresis Pas 280 Psoralen Unit [id number] Other: Voiding Method Toilet Toilet Toilet # Voids 3 6 3 - Exam GENERAL DESCRIPTION: Elderly female up in the chair, no distress. No tachypnea or accessory muscle of respiration use. LUNGS: Unlabored breathing. Clear to auscultation anteriorly. No wheeze or crackle. HEART: S1, S2, regular rate and rhythm. No loud murmur ABDOMEN: Soft, no tenderness , guarding or rigidity, no organomegaly EXTREMITIES: No edema of feet. - Labs CBC & Chem 7: 01/02/22 14:13 01/02/22 06:09 Labs: Abnormal Lab Results - Last 24 Hours (Table) 01/02/22 01/02/22 01/02/22 Range/Units 06:09 06:09 06:09 WBC 0.42 L* (4.50-10.00) X 10*3/uL RBC 2.34 L (4.10-5.20) X 10*6/uL Hgb 7.1 L (12.0-15.0) g/dL Hct 19.3 L* (37.2-46.3) % MCHC (31.0-37.0) g/dL Plt Count 11 L* (140-440) X 10*3/uL Plt Count Comment A Neutrophils # 0 L* (1.80-7.70) X 10*3/uL Lymphocytes # 0.41 L (0.90-5.00) X 10*3/uL Monocytes # 0.01 L (0.20-1.00) X 10*3/uL Eosinophils # 0 L (0.04-0.35) X 10*3/uL Fibrinogen 508 H (200-500) mg/dL Potassium 2.7 L* (3.5-5.5) mmol/L BUN 4.1 L (9.0-27.0) mg/dL Creatinine 0.4 L (0.6-1.5) mg/dL BUN/Creatinine Ratio 10.10 L (12.00-20.00) Ratio Glucose 116 H (70-110) mg/dL Calcium 8.0 L (8.7-10.3) mg/dL Magnesium (1.6-2.3) mg/dL AST 9 L (13-35) U/L Alkaline Phosphatase 38 L (41-126) U/L Total Protein 5.5 L (6.2-8.2) g/dL Albumin 3.2 L (3.8-4.9) g/dL Albumin/Globulin Ratio 1.37 L (1.60-3.17) g/dL 01/02/22 01/02/22 Range/Units 14:13 14:13 WBC 0.4 L* (4.50-10.00) X 10*3/uL RBC 2.34 L (4.10-5.20) X 10*6/uL Hgb 7.4 L (12.0-15.0) g/dL Hct 19.9 L* (37.2-46.3) % MCHC 37.2 H (31.0-37.0) g/dL Plt Count 9 L* (140-440) X 10*3/uL Plt Count Comment Neutrophils # (1.80-7.70) X 10*3/uL Lymphocytes # (0.90-5.00) X 10*3/uL Monocytes # (0.20-1.00) X 10*3/uL Eosinophils # (0.04-0.35) X 10*3/uL Fibrinogen (200-500) mg/dL Potassium (3.5-5.5) mmol/L BUN (9.0-27.0) mg/dL Creatinine (0.6-1.5) mg/dL BUN/Creatinine Ratio (12.00-20.00) Ratio Glucose (70-110) mg/dL Calcium (8.7-10.3) mg/dL Magnesium 1.4 L (1.6-2.3) mg/dL AST (13-35) U/L Alkaline Phosphatase (41-126) U/L Total Protein (6.2-8.2) g/dL Albumin (3.8-4.9) g/dL Albumin/Globulin Ratio (1.60-3.17) g/dL Microbiology - Last 24 Hours (Table) 12/27/21 21:46 Blood Culture - Preliminary Blood No Growth after 120 hours 12/27/21 21:45 Blood Culture - Preliminary Blood No Growth after 120 hours 12/29/21 17:16 Blood Culture - Preliminary Blood No Growth after 72 hours 12/29/21 15:04 Blood Culture - Preliminary Blood No Growth after 72 hours Assessment and Plan (1) Neutropenic fever Current Visit: Yes Status: Acute Code(s): D70.9 - NEUTROPENIA, UNSPECIFIED; R50.81 - FEVER PRESENTING WITH CONDITIONS CLASSIFIED ELSEWHERE SNOMED Code(s): 565718185 Plan: 1patient presented to hospital with sepsis in this patient who did have a fever neutropenia in this patient recently completed her induction chemotherapy work- up so far negative with a chest x-ray was negative urine has been negative no significant tenderness to abdominal wall and a question of possible PICC line infection. 2Patient blood culture with micrococcus species questionably contamination repeat blood culture so far negative, we will discontinue the vancomycin 3in view of significant diarrhea we will check a stool culture, continue on cefepime add Flagyl and Questran Time with Patient: Less than 30
[2022-01-03] MEDS: POTASSIUM CHLORIDE ER 20 MEQ TAB.ER PO SCH ×9 (02:12→22:48)
[2022-01-03] MEDS: CEFEPIME 2 GM in SODIUM CHLORIDE 0.9% 100 ML IVPB SCH ×3 (03:24→19:34)
[2022-01-03] MEDS: SALT AND SODA MOUTHWASH 1,000 ML PO SCH ×4 (06:37→19:34)
[2022-01-03] MEDS: MAG HYDROX/AL HYDROX/SIMETH 30 ML, diphenhydrAMINE ELIXIR 75 MG, LIDOCAINE VISCOUS 2% 3... PO SCH ×6 (07:28→20:58)
[2022-01-03] MEDS: metFORMIN 500 MG TAB PO SCH (07:37)
[2022-01-03] MEDS: metroNIDAZOLE 500 MG TAB PO SCH ×3 (07:37→22:48)
[2022-01-03] MEDS: FLUCONAZOLE 100 MG TAB PO SCH (07:40)
[2022-01-03] MEDS: CHOLESTYRAMINE (WITH SUGAR) 4 GM PACKET PO SCH ×2 (09:33→17:27)
[2022-01-03 09:55] LABS: HCT 19.5 % (37.2-46.3); HGB 7.1 g/dL (12.0-15.0); MCH 30.1 pg (27.0-32.0); MCHC 36.4 g/dL (32.0-37.0); MCV 82.6 fL (80.0-97.0); NRBC Per 100 WBC 0 /100 WBCS (0.0-0.0); Platelet Count 5 X 10*3/uL (140-440); RBC 2.36 X 10*6/uL (4.10-5.20); RDW 13.9 % (11.5-14.5); WBC 0.45 X 10*3/uL (4.50-10.00)
[2022-01-03 10:25] LABS: Basophils # (A) 0 X 10*3/uL (0.00-0.10); Basophils % (A) 0 %; Eosinophils # (A) 0 X 10*3/uL (0.04-0.35); Eosinophils % (A) 0 %; Immature Grans, Automated 0 %; Immature Platelet Fraction 3.1 % (1.1-6.1); Lymphocytes # (A) 0.42 X 10*3/uL (0.90-5.00); Lymphocytes % (A) 93.3 %; Monocytes # (A) 0.03 X 10*3/uL (0.20-1.00); Monocytes % (A) 6.7 %; Neutrophils # (A) 0 X 10*3/uL (1.80-7.70); Neutrophils % (A) 0 %; Rouleaux PRESENT
--- NOTE | 2022-01-03 11:22 | P.PN ---
Subjective Progress Note Date: 01/03/22 Patient is a very pleasant 65-year-old female with a past medical history of hypertension, GERD, diabetes mellitus, and AML who was recently admitted under the hematology/oncology team undergoing induction chemotherapeutic treatment with Cytarabine from 12/16 till12/24. Patient was all right until yesterday evening when she started noticing fevers. Fevers were high-grade. Patient d enies any shortness of breath. There was no complain of any cough. Patient did notice she was having diarrhea which was nonbloody. Patient denied any abdominal pain. She denied any urinary symptoms. Patient was empirically on ciprofloxacin, fluconazole, acyclovir. Patient was worked up in the ER, initial blood work showed WBC of 0.2, hemoglobin of 7.3 and platelet count of [address] abdomen and pelvis done showed some proximal jejunal wall thickening that could be gastroenteritis, there was no evidence of an diverticulitis. Patient was started on broad-spectrum antibiotics and was admitted to hospitalist service 12/29/21. Patient seen and examined. Patient afebrile since yesterday evening, states she feels better. Hemoglobin this morning is 4.9, platelet count is 1. Vital signs other than that are stable 12/30/21. Patient seen and examined. T-max of 100.9. Platelet count was low, being transfused platelets. Hemoglobin is 5.8. No evidence of any blood in the stools 12/31/21. Patient Seen and examined.. Complaining of swelling of lower extremities. Patient has gained 10 KGs of weight while in the hospital. 01/01/22. Patient seen and examined. Hemoglobin this morning is 7.8, platelet count of 7. 01/02. Patient seen and examined. Complaining of neck spasm. Hemoglobin this morning is 7.1, platelet count is 11 01/03. Patient seen and examined denies any abdominal pain. Having some loose stools. Continues to be afebrile. White count of 0.45, hemoglobin 7.1, platelet count 5 REVIEW OF SYSTEMS: CONSTITUTIONAL: No fever, no malaise,. CARDIOVASCULAR: No chest pain, no palpitations, no syncope. PULMONARY: No shortness of breath, no cough, GASTROINTESTINAL: No nausea, no abdominal pain. NEUROLOGICAL: No headaches, no weakness, PHYSICAL EXAMINATION: GENERAL: The patient is alert and oriented x3, not in any acute distress. Well developed, well nourished. HEENT: Pupils are round and equally reacting to light. EOMI. No scleral icterus. No conjunctival pallor. Normocephalic, atraumatic. No pharyngeal erythema. No thyromegaly. CARDIOVASCULAR: S1 and S2 present. No murmurs, rubs, or gallops. PULMONARY: Chest is clear to auscultation, no wheezing or crackles. ABDOMEN: Soft, nontender, nondistended, normoactive bowel sounds. No palpable organomegaly. MUSCULOSKELETAL: No joint swelling or deformity. EXTREMITIES: 2+ pitting edema of lower extremities bilaterally NEUROLOGICAL: Gross neurological examination did not reveal any focal deficits. SKIN: Bruising on chin Assessment and plan Neutropenic fevers Pancytopenia acute myeloid leukemia Diabetes mellitus Hypertension Hypomagnesemia Plan; Monitor CBC Monitor electrolytes Follow-up on blood cultures Bleeding precautions Neutropenic precautions Continue cefepime. Vancomycin was discontinued, patient started on oral Flagyl Added cholestyramine Follow-up in ID recommendations follow-up on hematology oncology recommendations, patient being transfused another unit of platelets Objective - Vital Signs Vital signs: Vital Signs Temp 99 F 01/03/22 11:04 Pulse 91 01/03/22 11:04 Resp 18 01/03/22 05:00 BP 155/83 01/03/22 11:04 Pulse Ox 100 01/03/22 11:04 FiO2 Intake & Output 01/02/22 01/03/22 01/03/22 18:59 06:59 18:59 Intake Total 2400 400 0 Output Total 3 Balance 2400 397 0 Weight 114 kg 111.5 kg Intake: Intake, IV Titration 1200 Amount Cefepime 2 gm In Sodium 100 Chloride 0.9% 100 ml @ 25 mls/hr IVPB Q8H [facility] Rx#: [id number] Sodium Chloride 0.9% 1, 600 000 ml @ 50 mls/hr IV . Q20H [facility] Rx#:[id number] Vancomycin 1,750 mg In 500 Sodium Chloride 0.9% 500 ml 500 ml @ 167 mls/hr IVPB Q12H [facility] Rx#: [id number] Oral 1200 400 Blood Product 0 Platelet Pheresis Pas 0 Psoralen Unit [id number] Output: Urine 3 Other: Voiding Method Toilet Toilet Toilet # Voids 3 8 - Labs CBC & Chem 7: 01/03/22 05:44 01/03/22 10:13 Labs: Abnormal Lab Results - Last 24 Hours (Table) 01/02/22 01/02/22 01/02/22 Range/Units 06:09 14:13 14:13 WBC 0.4 L* (3.8-10.6) k/uL RBC 2.34 L (3.80-5.40) m/uL Hgb 7.4 L (11.4-16.0) gm/dL Hct 19.9 L* (34.0-46.0) % MCHC 37.2 H (31.0-37.0) g/dL Plt Count 9 L* (150-450) k/uL Plt Count Comment Neutrophils # (1.80-7.70) X 10*3/uL Lymphocytes # (0.90-5.00) X 10*3/uL Monocytes # (0.20-1.00) X 10*3/uL Eosinophils # (0.04-0.35) X 10*3/uL Potassium 2.7 L* (3.5-5.5) mmol/L BUN 4.1 L (9.0-27.0) mg/dL Creatinine 0.4 L (0.6-1.5) mg/dL BUN/Creatinine Ratio 10.10 L (12.00-20.00) Ratio Glucose 116 H (70-110) mg/dL Calcium 8.0 L (8.7-10.3) mg/dL Magnesium 1.4 L (1.6-2.3) mg/dL AST 9 L (13-35) U/L Alkaline Phosphatase 38 L (41-126) U/L Total Protein 5.5 L (6.2-8.2) g/dL Albumin 3.2 L (3.8-4.9) g/dL Albumin/Globulin Ratio 1.37 L (1.60-3.17) g/dL Vitamin D 25-Hydroxy 21.3 L (30.0-100.0) ng/mL 01/03/22 01/03/22 01/03/22 Range/Units 00:48 05:44 05:44 WBC 0.45 L* (3.8-10.6) k/uL RBC 2.36 L (3.80-5.40) m/uL Hgb 7.1 L (11.4-16.0) gm/dL Hct 19.5 L* (34.0-46.0) % MCHC (31.0-37.0) g/dL Plt Count 5 L* (150-450) k/uL Plt Count Comment A Neutrophils # 0 L* (1.80-7.70) X 10*3/uL Lymphocytes # 0.42 L (0.90-5.00) X 10*3/uL Monocytes # 0.03 L (0.20-1.00) X 10*3/uL Eosinophils # 0 L (0.04-0.35) X 10*3/uL Potassium 2.7 L* 3.0 L (3.5-5.5) mmol/L BUN (9.0-27.0) mg/dL Creatinine (0.6-1.5) mg/dL BUN/Creatinine Ratio (12.00-20.00) Ratio Glucose (70-110) mg/dL Calcium (8.7-10.3) mg/dL Magnesium (1.6-2.3) mg/dL AST (13-35) U/L Alkaline Phosphatase (41-126) U/L Total Protein (6.2-8.2) g/dL Albumin (3.8-4.9) g/dL Albumin/Globulin Ratio (1.60-3.17) g/dL Vitamin D 25-Hydroxy (30.0-100.0) ng/mL 01/03/22 Range/Units 10:13 WBC (3.8-10.6) k/uL RBC (3.80-5.40) m/uL Hgb (11.4-16.0) gm/dL Hct (34.0-46.0) % MCHC (31.0-37.0) g/dL Plt Count (150-450) k/uL Plt Count Comment Neutrophils # (1.80-7.70) X 10*3/uL Lymphocytes # (0.90-5.00) X 10*3/uL Monocytes # (0.20-1.00) X 10*3/uL Eosinophils # (0.04-0.35) X 10*3/uL Potassium 3.1 L (3.5-5.5) mmol/L BUN (9.0-27.0) mg/dL Creatinine (0.6-1.5) mg/dL BUN/Creatinine Ratio (12.00-20.00) Ratio Glucose (70-110) mg/dL Calcium (8.7-10.3) mg/dL Magnesium (1.6-2.3) mg/dL AST (13-35) U/L Alkaline Phosphatase (41-126) U/L Total Protein (6.2-8.2) g/dL Albumin (3.8-4.9) g/dL Albumin/Globulin Ratio (1.60-3.17) g/dL Vitamin D 25-Hydroxy (30.0-100.0) ng/mL Microbiology - Last 24 Hours (Table) 12/27/21 21:46 Blood Culture - Final Blood No Growth after 144 hours 12/27/21 21:45 Blood Culture - Final Blood No Growth after 144 hours 12/29/21 17:16 Blood Culture - Preliminary Blood No Growth after 96 hours 12/29/21 15:04 Blood Culture - Preliminary Blood No Growth after 96 hours
[2022-01-03 12:05] LABS: African American GFR (CKD) 129.3 (60.0-200.0); Albumin 3.3 g/dL (3.8-4.9); Albumin/Globulin Ratio 1.43 (1.60-3.17); Anion Gap 11.6 mmol/L (10.00-18.00); BUN/Creat Ratio 10.88 Ratio (12.00-20.00); Blood Urea Nitrogen 4.1 mg/dL (9.0-27.0); Carbon Dioxide 24.1 mmol/L (20.0-27.5); Globulin 2.3 g/dL (1.6-3.3); Non-African American GFR(CKD) 111.6 (60.0-200.0); Total Bilirubin 0.9 mg/dL (0.30-1.20); Total Protein 5.6 g/dL (6.2-8.2)
--- NOTE | 2022-01-03 16:20 | P.PN ---
Subjective Progress Note Date: 01/03/22 Principal diagnosis: Febrile neutropenia Patient is a 66-year-old female with a past medical history significant for hypertension acute myeloid leukemia in this patient who recently did have induction chemotherapy completed on 12/24/2021 through the left arm PICC line presenting to the hospital for fever initial work-up negative except CT abdominal pelvis did show some jejunal wall thickening could be gastroenteritis. On today's evaluation that is 01/03/2022, patient remains to be afebrile the patient is breathing comfortably on room air the patient denies chest pain no shortness of breath or cough no nausea vomiting no abdominal pain, the patient did have improvement in her diarrhea Objective - Vital Signs Vital signs: Vital Signs Temp 99.6 F 01/03/22 11:24 Pulse 88 01/03/22 14:18 Resp 18 01/03/22 11:11 BP 156/88 01/03/22 14:18 Pulse Ox 100 01/03/22 14:18 FiO2 Intake & Output 01/02/22 01/03/22 01/03/22 18:59 06:59 18:59 Intake Total 2400 400 329 Output Total 3 Balance 2400 397 329 Weight 114 kg 111.5 kg Intake: Intake, IV Titration 1200 Amount Cefepime 2 gm In Sodium 100 Chloride 0.9% 100 ml @ 25 mls/hr IVPB Q8H [facility] Rx#: [id number] Sodium Chloride 0.9% 1, 600 000 ml @ 50 mls/hr IV . Q20H [facility] Rx#:[id number] Vancomycin 1,750 mg In 500 Sodium Chloride 0.9% 500 ml 500 ml @ 167 mls/hr IVPB Q12H [facility] Rx#: [id number] Oral 1200 400 Blood Product 329 Platelet Pheresis Pas 329 Psoralen Unit [id number] Output: Urine 3 Other: Voiding Method Toilet Toilet Toilet # Voids 3 8 - Exam GENERAL DESCRIPTION: Elderly female up in the chair, no distress. No tachypnea or accessory muscle of respiration use. LUNGS: Unlabored breathing. Clear to auscultation anteriorly. No wheeze or crackle. HEART: S1, S2, regular rate and rhythm. No loud murmur ABDOMEN: Soft, no tenderness , guarding or rigidity, no organomegaly EXTREMITIES: No edema of feet. - Labs CBC & Chem 7: 01/03/22 05:44 01/03/22 10:13 Labs: Abnormal Lab Results - Last 24 Hours (Table) 01/02/22 01/02/22 01/02/22 Range/Units 06:09 14:13 14:13 WBC 0.4 L* (3.8-10.6) k/uL RBC (4.10-5.20) X 10*6/uL Hgb (12.0-15.0) g/dL Hct (37.2-46.3) % Plt Count 9 L* (150-450) k/uL Plt Count Comment Neutrophils # (1.80-7.70) X 10*3/uL Lymphocytes # (0.90-5.00) X 10*3/uL Monocytes # (0.20-1.00) X 10*3/uL Eosinophils # (0.04-0.35) X 10*3/uL Potassium 2.7 L* (3.5-5.5) mmol/L BUN 4.1 L (9.0-27.0) mg/dL Creatinine 0.4 L (0.6-1.5) mg/dL BUN/Creatinine Ratio 10.10 L (12.00-20.00) Ratio Glucose 116 H (70-110) mg/dL Calcium 8.0 L (8.7-10.3) mg/dL AST 9 L (13-35) U/L Alkaline Phosphatase 38 L (41-126) U/L Total Protein 5.5 L (6.2-8.2) g/dL Albumin 3.2 L (3.8-4.9) g/dL Albumin/Globulin Ratio 1.37 L (1.60-3.17) g/dL Vitamin D 25-Hydroxy 21.3 L (30.0-100.0) ng/mL 01/03/22 01/03/22 01/03/22 Range/Units 00:48 05:44 05:44 WBC 0.45 L* (3.8-10.6) k/uL RBC 2.36 L (4.10-5.20) X 10*6/uL Hgb 7.1 L (12.0-15.0) g/dL Hct 19.5 L* (37.2-46.3) % Plt Count 5 L* (150-450) k/uL Plt Count Comment A Neutrophils # 0 L* (1.80-7.70) X 10*3/uL Lymphocytes # 0.42 L (0.90-5.00) X 10*3/uL Monocytes # 0.03 L (0.20-1.00) X 10*3/uL Eosinophils # 0 L (0.04-0.35) X 10*3/uL Potassium 2.7 L* 3.0 L (3.5-5.5) mmol/L BUN 4.1 L (9.0-27.0) mg/dL Creatinine 0.4 L (0.6-1.5) mg/dL BUN/Creatinine Ratio 10.88 L (12.00-20.00) Ratio Glucose 117 H (70-110) mg/dL Calcium 8.0 L (8.7-10.3) mg/dL AST 11 L (13-35) U/L Alkaline Phosphatase (41-126) U/L Total Protein 5.6 L (6.2-8.2) g/dL Albumin 3.3 L (3.8-4.9) g/dL Albumin/Globulin Ratio 1.43 L (1.60-3.17) g/dL Vitamin D 25-Hydroxy (30.0-100.0) ng/mL 01/03/22 01/03/22 Range/Units 05:44 10:13 WBC (3.8-10.6) k/uL RBC (4.10-5.20) X 10*6/uL Hgb (12.0-15.0) g/dL Hct (37.2-46.3) % Plt Count (150-450) k/uL Plt Count Comment Neutrophils # (1.80-7.70) X 10*3/uL Lymphocytes # (0.90-5.00) X 10*3/uL Monocytes # (0.20-1.00) X 10*3/uL Eosinophils # (0.04-0.35) X 10*3/uL Potassium 3.0 L 3.1 L (3.5-5.5) mmol/L BUN (9.0-27.0) mg/dL Creatinine (0.6-1.5) mg/dL BUN/Creatinine Ratio (12.00-20.00) Ratio Glucose (70-110) mg/dL Calcium (8.7-10.3) mg/dL AST (13-35) U/L Alkaline Phosphatase (41-126) U/L Total Protein (6.2-8.2) g/dL Albumin (3.8-4.9) g/dL Albumin/Globulin Ratio (1.60-3.17) g/dL Vitamin D 25-Hydroxy (30.0-100.0) ng/mL Microbiology - Last 24 Hours (Table) 01/02/22 20:10 Stool Culture - Preliminary Stool 12/27/21 21:46 Blood Culture - Final Blood No Growth after 144 hours 12/27/21 21:45 Blood Culture - Final Blood No Growth after 144 hours 12/29/21 17:16 Blood Culture - Preliminary Blood No Growth after 96 hours 12/29/21 15:04 Blood Culture - Preliminary Blood No Growth after 96 hours Assessment and Plan (1) Neutropenic fever Current Visit: Yes Status: Acute Code(s): D70.9 - NEUTROPENIA, UNSPECIFIED; R50.81 - FEVER PRESENTING WITH CONDITIONS CLASSIFIED ELSEWHERE SNOMED Code(s): 193977699 Plan: 1patient presented to hospital with sepsis in this patient who did have a fever neutropenia in this patient recently completed her induction chemotherapy work- up so far negative with a chest x-ray was negative urine has been negative no significant tenderness to abdominal wall and a question of possible PICC line infection. 2Patient blood culture with micrococcus species questionably contamination repeat blood culture so far negative, vancomycin was discontinued 3patient has shown some clinical improvement as for his diarrhea is concerned stool cultures are pending continue cefepime Flagyl along with Questran as needed Time with Patient: Less than 30
--- NOTE | 2022-01-03 16:52 | P.PN ---
Subjective Progress Note Date: 01/03/22 Platelets 9K, Potassium and Mag low. She did complain of diarrhea and stool studies ordered Objective - Vital Signs Vital signs: Vital Signs Temp 99.6 F 01/03/22 11:24 Pulse 88 01/03/22 14:18 Resp 18 01/03/22 11:11 BP 156/88 01/03/22 14:18 Pulse Ox 100 01/03/22 14:18 FiO2 Intake & Output 01/02/22 01/03/22 01/03/22 18:59 06:59 18:59 Intake Total 2400 400 329 Output Total 3 Balance 2400 397 329 Weight 114 kg 111.5 kg Intake: Intake, IV Titration 1200 Amount Cefepime 2 gm In Sodium 100 Chloride 0.9% 100 ml @ 25 mls/hr IVPB Q8H [facility] Rx#: [id number] Sodium Chloride 0.9% 1, 600 000 ml @ 50 mls/hr IV . Q20H [facility] Rx#:[id number] Vancomycin 1,750 mg In 500 Sodium Chloride 0.9% 500 ml 500 ml @ 167 mls/hr IVPB Q12H [facility] Rx#: [id number] Oral 1200 400 Blood Product 329 Platelet Pheresis Pas 329 Psoralen Unit [id number] Output: Urine 3 Other: Voiding Method Toilet Toilet Toilet # Voids 3 8 - Exam - Constitutional General appearance: Present: average body habitus, cooperative, no acute distress - EENT EENT Comment(s): bilaterl buccal wet purpura Eyes: Present: anicteric sclerae, EOMI ENT: Present: hearing grossly normal - Respiratory Respiratory: bilateral: CTA - Cardiovascular Rhythm: regular Heart sounds: normal: S1, S2 Abnormal Heart Sounds: Absent: systolic murmur, diastolic murmur, rub, S3 Gallop, S4 Gallop, click, other - Peripheral edema leg Peripheral Edema: bilateral: None - Gastrointestinal General gastrointestinal: Present: normal bowel sounds, soft, tenderness (very mild, no rebound, not rigid) - Integumentary Integumentary: Present: normal, pale - Neurologic Neurologic: Present: CNII-XII intact - Musculoskeletal Musculoskeletal: Present: generalized weakness, strength equal bilaterally - Psychiatric Psychiatric: Present: A&O x's 3, appropriate affect, intact judgment & insight - Labs CBC & Chem 7: 01/03/22 05:44 01/03/22 10:13 Labs: Abnormal Lab Results - Last 24 Hours (Table) 01/02/22 01/03/22 01/03/22 Range/Units 14:13 00:48 05:44 WBC (4.50-10.00) X 10*3/uL RBC (4.10-5.20) X 10*6/uL Hgb (12.0-15.0) g/dL Hct (37.2-46.3) % Plt Count (140-440) X 10*3/uL Plt Count Comment Neutrophils # (1.80-7.70) X 10*3/uL Lymphocytes # (0.90-5.00) X 10*3/uL Monocytes # (0.20-1.00) X 10*3/uL Eosinophils # (0.04-0.35) X 10*3/uL Potassium 2.7 L* 3.0 L (3.5-5.1) mmol/L BUN 4.1 L (9.0-27.0) mg/dL Creatinine 0.4 L (0.6-1.5) mg/dL BUN/Creatinine Ratio 10.88 L (12.00-20.00) Ratio Glucose 117 H (70-110) mg/dL Calcium 8.0 L (8.7-10.3) mg/dL AST 11 L (13-35) U/L Total Protein 5.6 L (6.2-8.2) g/dL Albumin 3.3 L (3.8-4.9) g/dL Albumin/Globulin Ratio 1.43 L (1.60-3.17) g/dL Vitamin D 25-Hydroxy 21.3 L (30.0-100.0) ng/mL 01/03/22 01/03/22 01/03/22 Range/Units 05:44 05:44 10:13 WBC 0.45 L* (4.50-10.00) X 10*3/uL RBC 2.36 L (4.10-5.20) X 10*6/uL Hgb 7.1 L (12.0-15.0) g/dL Hct 19.5 L* (37.2-46.3) % Plt Count 5 L* (140-440) X 10*3/uL Plt Count Comment A Neutrophils # 0 L* (1.80-7.70) X 10*3/uL Lymphocytes # 0.42 L (0.90-5.00) X 10*3/uL Monocytes # 0.03 L (0.20-1.00) X 10*3/uL Eosinophils # 0 L (0.04-0.35) X 10*3/uL Potassium 3.0 L 3.1 L (3.5-5.1) mmol/L BUN (9.0-27.0) mg/dL Creatinine (0.6-1.5) mg/dL BUN/Creatinine Ratio (12.00-20.00) Ratio Glucose (70-110) mg/dL Calcium (8.7-10.3) mg/dL AST (13-35) U/L Total Protein (6.2-8.2) g/dL Albumin (3.8-4.9) g/dL Albumin/Globulin Ratio (1.60-3.17) g/dL Vitamin D 25-Hydroxy (30.0-100.0) ng/mL Microbiology - Last 24 Hours (Table) 01/02/22 20:10 Stool Culture - Preliminary Stool 12/27/21 21:46 Blood Culture - Final Blood No Growth after 144 hours 12/27/21 21:45 Blood Culture - Final Blood No Growth after 144 hours 12/29/21 17:16 Blood Culture - Preliminary Blood No Growth after 96 hours 12/29/21 15:04 Blood Culture - Preliminary Blood No Growth after 96 hours Assessment and Plan Plan: Assessment and Plan (1) Neutropenic fever Current Visit: Yes Status: Acute Code(s): D70.9 - NEUTROPENIA, UNSPECIFIED; R50.81 - FEVER PRESENTING WITH CONDITIONS CLASSIFIED ELSEWHERE SNOMED Code(s): 702881729 (2) Pancytopenia Current Visit: Yes Status: Acute Priority: High Code(s): D61.818 - OTHER PANCYTOPENIA SNOMED Code(s): 801165006 (3) Acute myeloid leukemia Current Visit: No Status: Acute Priority: High Code(s): C92.00 - ACUTE MYELOBLASTIC LEUKEMIA, NOT HAVING ACHIEVED REMISSION SNOMED Code(s): 63803843 Plan: Pancultures have been collected, one positive BC for micrococcus, gram positive ending review by ID. Viral panel negative, C. difficile negative. Afebrile today Empiric antibiotics continue. Patient remains on antiviral and antifungal medi cations. Transfuse with irradiated blood products only. Transfuse for platelets less than 10,000 or if symptomatic-pt is currently symptomatic with wet purpura, plt ordered. Ordered 1 unit PRBC Today and one unit of platelet (plt 5K) - May need crossmatched If signs of bleeding transfuse Periodic coags, monitor for DIC Stool C diff neg ordered. No G-CSF, as patient is not confirmed remission Daily follow-up CBC daily Abdominal exam is without pain but having diarrhea
[2022-01-03] MEDS: SODIUM CHLORIDE 0.9% 1,000 ML IV SCH (19:34)
[2022-01-03] MEDS: ACETAMINOPHEN TAB 325 MG TAB PO PRN (19:38)
[2022-01-03] MEDS: OLANZapine 2.5 MG TAB PO SCH (20:57)
[2022-01-03] MEDS: VERAPAMIL SR 120 MG TABLET.ER PO SCH (20:57)
[2022-01-04] MEDS: SALT AND SODA MOUTHWASH 1,000 ML PO SCH ×5 (00:04→21:48)
[2022-01-04] MEDS: CEFEPIME 2 GM in SODIUM CHLORIDE 0.9% 100 ML IVPB SCH ×3 (03:36→19:36)
[2022-01-04] MEDS: ACETAMINOPHEN TAB 325 MG TAB PO PRN ×2 (06:22→19:36)
[2022-01-04] MEDS: MAG HYDROX/AL HYDROX/SIMETH 30 ML, diphenhydrAMINE ELIXIR 75 MG, LIDOCAINE VISCOUS 2% 3... PO SCH ×6 (07:36→21:48)
[2022-01-04] MEDS: FLUCONAZOLE 100 MG TAB PO SCH (08:55)
[2022-01-04] MEDS: metroNIDAZOLE 500 MG TAB PO SCH ×3 (08:55→21:48)
[2022-01-04] MEDS: CHOLECALCIFEROL 25 MCG (1000 IU) TABLET PO SCH (08:55)
[2022-01-04] MEDS: metFORMIN 500 MG TAB PO SCH (08:55)
--- NOTE | 2022-01-04 09:24 | P.PN ---
Subjective Progress Note Date: 01/04/22 The patient reports some fatigue, but otherwise feels well. She is afebrile. No chills, nausea or vomiting. She had been having somewhat loose bowel movements but states that these are more normal since yesterday. Appetite is fair. Objective - Vital Signs Vital signs: Vital Signs Temp 99.6 F 01/04/22 05:00 Pulse 91 01/04/22 05:00 Resp 20 01/04/22 05:00 BP 159/75 01/04/22 05:00 Pulse Ox 99 01/04/22 05:00 FiO2 Intake & Output 01/03/22 01/04/22 01/04/22 18:59 06:59 18:59 Intake Total 1029 350 Balance 1029 350 Weight 108 kg Intake: Intake, IV Titration 700 Amount Cefepime 2 gm In Sodium 100 Chloride 0.9% 100 ml @ 25 mls/hr IVPB Q8H [facility] Rx#: [id number] Sodium Chloride 0.9% 1, 600 000 ml @ 50 mls/hr IV . Q20H [facility] Rx#:[id number] Oral 350 Blood Product 329 Platelet Pheresis Pas 329 Psoralen Unit [id number] Other: Voiding Method Toilet Toilet # Voids 10 - Constitutional General appearance: Present: no acute distress - EENT Eyes: Present: EOMI ENT: Present: hearing grossly normal, normal oropharynx - Respiratory Respiratory: bilateral: CTA - Cardiovascular Rhythm: regular Heart sounds: normal: S1, S2 - Gastrointestinal General gastrointestinal: Present: normal bowel sounds, soft - Integumentary Integumentary Comment(s): Small bruise right chin - Neurologic Neurologic: Present: CNII-XII intact - Musculoskeletal Musculoskeletal: Present: generalized weakness, strength equal bilaterally - Psychiatric Psychiatric: Present: A&O x's 3, appropriate affect - Labs CBC & Chem 7: 01/03/22 05:44 01/03/22 19:05 Labs: Abnormal Lab Results - Last 24 Hours (Table) 01/03/22 01/03/22 01/03/22 Range/Units 05:44 05:44 10:13 WBC 0.45 L* (4.50-10.00) X 10*3/uL RBC 2.36 L (4.10-5.20) X 10*6/uL Hgb 7.1 L (12.0-15.0) g/dL Hct 19.5 L* (37.2-46.3) % Plt Count 5 L* (140-440) X 10*3/uL Plt Count Comment A Neutrophils # 0 L* (1.80-7.70) X 10*3/uL Lymphocytes # 0.42 L (0.90-5.00) X 10*3/uL Monocytes # 0.03 L (0.20-1.00) X 10*3/uL Eosinophils # 0 L (0.04-0.35) X 10*3/uL Potassium 3.0 L 3.1 L (3.5-5.5) mmol/L BUN 4.1 L (9.0-27.0) mg/dL Creatinine 0.4 L (0.6-1.5) mg/dL BUN/Creatinine Ratio 10.88 L (12.00-20.00) Ratio Glucose 117 H (70-110) mg/dL Calcium 8.0 L (8.7-10.3) mg/dL AST 11 L (13-35) U/L Total Protein 5.6 L (6.2-8.2) g/dL Albumin 3.3 L (3.8-4.9) g/dL Albumin/Globulin Ratio 1.43 L (1.60-3.17) g/dL 01/03/22 Range/Units 19:05 WBC (4.50-10.00) X 10*3/uL RBC (4.10-5.20) X 10*6/uL Hgb (12.0-15.0) g/dL Hct (37.2-46.3) % Plt Count (140-440) X 10*3/uL Plt Count Comment Neutrophils # (1.80-7.70) X 10*3/uL Lymphocytes # (0.90-5.00) X 10*3/uL Monocytes # (0.20-1.00) X 10*3/uL Eosinophils # (0.04-0.35) X 10*3/uL Potassium 3.3 L (3.5-5.5) mmol/L BUN (9.0-27.0) mg/dL Creatinine (0.6-1.5) mg/dL BUN/Creatinine Ratio (12.00-20.00) Ratio Glucose (70-110) mg/dL Calcium (8.7-10.3) mg/dL AST (13-35) U/L Total Protein (6.2-8.2) g/dL Albumin (3.8-4.9) g/dL Albumin/Globulin Ratio (1.60-3.17) g/dL Microbiology - Last 24 Hours (Table) 12/29/21 17:16 Blood Culture - Preliminary Blood No Growth after 120 hours 12/29/21 15:04 Blood Culture - Preliminary Blood No Growth after 120 hours 01/02/22 20:10 Stool Culture - Preliminary Stool Assessment and Plan (1) Neutropenic fever Narrative/Plan: The patient has now been afebrile for several days. Repeat cultures have been negative. She is continuing on broad-spectrum antibiotics per ID. Check with ID about possibility of switching back to a by mouth regimen for potential discharge. Current Visit: Yes Status: Acute Code(s): D70.9 - NEUTROPENIA, UNSPECIFIED; R50.81 - FEVER PRESENTING WITH CONDITIONS CLASSIFIED ELSEWHERE SNOMED Code(s): 335779158 (2) Pancytopenia Narrative/Plan: Due to chemotherapy. Labs pending this a.m. Transfuse to keep hemoglobin greater than 7, and platelets greater than 10. Current Visit: Yes Status: Acute Priority: High Code(s): D61.818 - OTHER PANCYTOPENIA SNOMED Code(s): 055555213 (3) Acute myeloid leukemia Narrative/Plan: The status post induction chemotherapy. Awaiting count recovery. Current Visit: No Status: Acute Priority: High Code(s): C92.00 - ACUTE MYELOBLASTIC LEUKEMIA, NOT HAVING ACHIEVED REMISSION SNOMED Code(s): 57141185
[2022-01-04 10:54] LABS: African American GFR (CKD) 126.7 (60.0-200.0); Albumin 3.3 g/dL (3.8-4.9); Albumin/Globulin Ratio 1.38 (1.60-3.17); Anion Gap 11.1 mmol/L (10.00-18.00); Blood Urea Nitrogen 4.8 mg/dL (9.0-27.0); Carbon Dioxide 23.9 mmol/L (20.0-27.5); Globulin 2.4 g/dL (1.6-3.3); Magnesium 1.2 mg/dL (1.5-2.4); Non-African American GFR(CKD) 109.3 (60.0-200.0); Potassium 3.1 mmol/L (3.5-5.5); Total Bilirubin 0.6 mg/dL (0.30-1.20); Total Protein 5.7 g/dL (6.2-8.2)
[2022-01-04] MEDS: CHOLESTYRAMINE (WITH SUGAR) 4 GM PACKET PO SCH ×2 (11:15→17:32)
[2022-01-04] MEDS ORDERED: POTASSIUM CHLORIDE ER 20 MEQ TAB.ER PO SCH (12:00)
[2022-01-04] MEDS ORDERED: Magnesium Replacement Protocol 1 EACH MISC MISCELLANE PRN (12:13)
[2022-01-04] MEDS: POTASSIUM CHLORIDE ER 20 MEQ TAB.ER PO SCH ×2 (13:12→15:46)
[2022-01-04] MEDS: MAGNESIUM SULFATE-D5W PMX 1 GM in DEXTROSE/WATER 1 100ML.BAG IVPB SCH ×3 (13:13→17:31)
[2022-01-04 13:14] LABS: Basophils # (A) 0 X 10*3/uL (0.00-0.10); Basophils % (A) 0 %; Eosinophils # (A) 0 X 10*3/uL (0.04-0.35); Eosinophils % (A) 0 %; HCT 20.2 % (37.2-46.3); HGB 6.9 g/dL (12.0-15.0); Immature Grans, Automated 2.1 %; Lymphocytes # (A) 0.42 X 10*3/uL (0.90-5.00); Lymphocytes % (A) 87.5 %; MCH 29.9 pg (27.0-32.0); MCHC 34.2 g/dL (32.0-37.0); MCV 87.4 fL (80.0-97.0); Monocytes # (A) 0.04 X 10*3/uL (0.20-1.00); Monocytes % (A) 8.3 %; NRBC Per 100 WBC 0 /100 WBCS (0.0-0.0); Neutrophils # (A) 0.01 X 10*3/uL (1.80-7.70); Neutrophils % (A) 2.1 %; Platelet Count 7 X 10*3/uL (140-440); RBC 2.31 X 10*6/uL (4.10-5.20); RDW 14.2 % (11.5-14.5); WBC 0.48 X 10*3/uL (4.50-10.00)
[2022-01-04 13:20] VITALS: BMI 39.6
--- NOTE | 2022-01-04 15:58 | P.PN ---
Subjective Progress Note Date: 01/04/22 Patient is a very pleasant 65-year-old female with a past medical history of hypertension, GERD, diabetes mellitus, and AML who was recently admitted under the hematology/oncology team undergoing induction chemotherapeutic treatment with Cytarabine from 12/16 till12/24. Patient was all right until yesterday evening when she started noticing fevers. Fevers were high-grade. Patient denies any shortness of breath. There was no complain of any cough. Patient did notice she was having diarrhea which was nonbloody. Patient denied any abdominal pain. She denied any urinary symptoms. Patient was empirically on ciprofloxacin, fluconazole, acyclovir. Patient was worked up in the ER, initial blood work showed WBC of 0.2, hemoglobin of 7.3 and platelet count of [address] abdomen and pelvis done showed some proximal jejunal wall thickening that could be gastroenteritis, there was no evidence of an diverticulitis. Patient was started on broad-spectrum antibiotics and was admitted to hospitalist service 12/29/21. Patient seen and examined. Patient afebrile since yesterday evening, states she feels better. Hemoglobin this morning is 4.9, platelet count is 1. Vital signs other than that are stable 12/30/21. Patient seen and examined. T-max of 100.9. Platelet count was low, being transfused platelets. Hemoglobin is 5.8. No evidence of any blood in the stools 12/31/21. Patient Seen and examined.. Complaining of swelling of lower extremities. Patient has gained 10 KGs of weight while in the hospital. 01/01/22. Patient seen and examined. Hemoglobin this morning is 7.8, platelet count of 7. 01/02. Patient seen and examined. Complaining of neck spasm. Hemoglobin this morning is 7.1, platelet count is 11 01/03. Patient seen and examined denies any abdominal pain. Having some loose stools. Continues to be afebrile. White count of 0.45, hemoglobin 7.1, platelet count 5 01/04/2022 Patient evaluated sitting up in chair. She was hoping for D/C home today. However Hgb 6.9 today and also platelet count 7. Patient to receive packed red blood cells x 2 and a dose of platelets. Patient reports having a bowel movement today which is formed. Sodium today 133, potassium 3.1.Overall states she is feeling better and stools are becoming more formed. Magnesium 1.2 today. Replace per protocol. Temperature 99 on empiric IV cefepime. Blood culture showing micrococcus most likely contaminent. ID is following. Oncology following. Review of Systems Constitutional: Denied any fatigue denied any fever. Cardio vascular: denied any chest pain, palpitations Gastrointestinal: denied any nausea, vomiting, diarrhea Pulmonary: Denied any shortness of breath cough Neurologic denied any new focal deficits All inpatient medications were reviewed and appropriate changes in these medications as dictated in the interval history and assessment and plan. PHYSICAL EXAMINATION: GENERAL: The patient is alert and oriented x3, not in any acute distress. Well developed, well nourished. HEENT: Pupils are round and equally reacting to light. EOMI. No scleral icterus. No conjunctival pallor. Normocephalic, atraumatic. No pharyngeal erythema. No thyromegaly. CARDIOVASCULAR: S1 and S2 present. No murmurs, rubs, or gallops. PULMONARY: Chest is clear to auscultation, no wheezing or crackles. ABDOMEN: Soft, nontender, nondistended, normoactive bowel sounds. No palpable organomegaly. MUSCULOSKELETAL: No joint swelling or deformity. EXTREMITIES: 2+ pitting edema of lower extremities bilaterally NEUROLOGICAL: Gross neurological examination did not reveal any focal deficits. SKIN: Bruising on chin Assessment and plan Neutropenic fevers Pancytopenia Micrococcus positive blood culture most likely a contaminent acute myeloid leukemia with recent hospital admission for induction chemotherapy through PICC line which possible sepsis as source of infection from PICC Diabetes mellitus Hypertension Hypomagnesemia GI prophylaxis DVT prophylaxis deffered secondary to low platelet count Full Code Plan; Monitor CBC Monitor electrolytes Follow-up on blood cultures Bleeding precautions Neutropenic precautions Patient to receive PRBC x 2 and platelets x 1 today Continue cefepime, Flagyl Follow-up in ID recommendations The impression and plan of care has been dictated by Sade Harper, Nurse Practitioner as directed. Dr. Castro MD I have performed a history and physical examination and medical decision making of this patient, discussed the same with the dictator, and agree with the dictators assessment and plan as written, documented as a scribe. Based on total visit time, I have performed more than 50% of this visit. Objective - Vital Signs Vital signs: Vital Signs Temp 99 F 01/04/22 11:54 Pulse 92 01/04/22 11:54 Resp 16 01/04/22 11:54 BP 134/83 01/04/22 11:54 Pulse Ox 100 01/04/22 11:54 FiO2 Intake & Output 01/03/22 01/04/22 01/04/22 18:59 06:59 18:59 Intake Total 1029 350 Balance 1029 350 Weight 108 kg Intake: Intake, IV Titration 700 Amount Cefepime 2 gm In Sodium 100 Chloride 0.9% 100 ml @ 25 mls/hr IVPB Q8H [facility] Rx#: [id number] Sodium Chloride 0.9% 1, 600 000 ml @ 50 mls/hr IV . Q20H [facility] Rx#:[id number] Oral 350 Blood Product 329 Platelet Pheresis Pas 329 Psoralen Unit [id number] Other: Voiding Method Toilet Toilet Toilet # Voids 10 - Labs CBC & Chem 7: 01/04/22 06:08 01/04/22 06:08 Labs: Abnormal Lab Results - Last 24 Hours (Table) 01/03/22 01/04/22 Range/Units 19:05 06:08 Sodium 133 L (135-145) mmol/L Potassium 3.3 L 3.1 L (3.5-5.1) mmol/L BUN 4.8 L (9.0-27.0) mg/dL Creatinine 0.4 L (0.6-1.5) mg/dL Glucose 144 H (70-110) mg/dL Calcium 8.0 L (8.7-10.3) mg/dL Magnesium 1.2 L (1.5-2.4) mg/dL AST 8 L (13-35) U/L Total Protein 5.7 L (6.2-8.2) g/dL Albumin 3.3 L (3.8-4.9) g/dL Albumin/Globulin Ratio 1.38 L (1.60-3.17) g/dL Microbiology - Last 24 Hours (Table) 12/29/21 17:16 Blood Culture - Preliminary Blood No Growth after 120 hours 12/29/21 15:04 Blood Culture - Preliminary Blood No Growth after 120 hours 01/02/22 20:10 Stool Culture - Preliminary Stool Assessment and Plan Time with Patient: Less than 30
[2022-01-04] MEDS: SODIUM CHLORIDE 0.9% 1,000 ML IV SCH (16:35)
[2022-01-04] MEDS: POTASSIUM CHLORIDE 20 MEQ in WATER FOR INJECTION 1 100ML.BAG IVPB SCH ×2 (19:37→21:52)
[2022-01-04] MEDS: OLANZapine 2.5 MG TAB PO SCH (21:48)
[2022-01-04] MEDS: VERAPAMIL SR 120 MG TABLET.ER PO SCH (21:48)
[2022-01-05] MEDS: SALT AND SODA MOUTHWASH 1,000 ML PO SCH ×6 (01:27→23:42)
[2022-01-05] MEDS: CEFEPIME 2 GM in SODIUM CHLORIDE 0.9% 100 ML IVPB SCH ×3 (02:57→21:15)
[2022-01-05] MEDS ORDERED: POTASSIUM CHLORIDE ER 20 MEQ TAB.ER PO SCH (03:00)
[2022-01-05] MEDS: ACETAMINOPHEN TAB 325 MG TAB PO PRN ×3 (06:11→23:41)
[2022-01-05] MEDS: SODIUM CHLORIDE 0.9% 1,000 ML IV SCH (09:18)
[2022-01-05 09:20] LABS: African American GFR (CKD) 126.7 (60.0-200.0); Albumin 3.4 g/dL (3.8-4.9); Albumin/Globulin Ratio 1.36 (1.60-3.17); Anion Gap 9.8 mmol/L (10.00-18.00); Blood Urea Nitrogen 6.4 mg/dL (9.0-27.0); Carbon Dioxide 23.2 mmol/L (20.0-27.5); Globulin 2.5 g/dL (1.6-3.3); Magnesium 1.6 mg/dL (1.5-2.4); Non-African American GFR(CKD) 109.3 (60.0-200.0); Potassium 3.8 mmol/L (3.5-5.5); Total Bilirubin 0.5 mg/dL (0.30-1.20); Total Protein 5.9 g/dL (6.2-8.2)
[2022-01-05] MEDS: CHOLECALCIFEROL 25 MCG (1000 IU) TABLET PO SCH (09:20)
[2022-01-05] MEDS: metFORMIN 500 MG TAB PO SCH (09:20)
[2022-01-05] MEDS: metroNIDAZOLE 500 MG TAB PO SCH ×3 (09:21→21:14)
[2022-01-05] MEDS: FLUCONAZOLE 100 MG TAB PO SCH (09:21)
[2022-01-05] MEDS: MAG HYDROX/AL HYDROX/SIMETH 30 ML, diphenhydrAMINE ELIXIR 75 MG, LIDOCAINE VISCOUS 2% 3... PO SCH ×6 (09:24→21:17)
[2022-01-05] MEDS: CHOLESTYRAMINE (WITH SUGAR) 4 GM PACKET PO SCH ×3 (09:27→15:55)
[2022-01-05 10:28] LABS: Basophils # (A) 0 X 10*3/uL (0.00-0.10); Basophils % (A) 0 %; Eosinophils # (A) 0 X 10*3/uL (0.04-0.35); Eosinophils % (A) 0 %; HCT 22.3 % (37.2-46.3); HGB 8.1 g/dL (12.0-15.0); Immature Grans, Automated 1.4 %; Lymphocytes % (A) 72.5 %; MCH 30.6 pg (27.0-32.0); MCHC 36.3 g/dL (32.0-37.0); MCV 84.2 fL (80.0-97.0); Monocytes # (A) 0.13 X 10*3/uL (0.20-1.00); Monocytes % (A) 18.8 %; NRBC Per 100 WBC 0 /100 WBCS (0.0-0.0); Neutrophils # (A) 0.05 X 10*3/uL (1.80-7.70); Neutrophils % (A) 7.3 %; Platelet Count 12 X 10*3/uL (140-440); RBC 2.65 X 10*6/uL (4.10-5.20); RDW 13.7 % (11.5-14.5); WBC 0.69 X 10*3/uL (4.50-10.00)
[2022-01-05 10:29] LABS: Immature Platelet Fraction 6.9 % (1.1-6.1)
--- NOTE | 2022-01-05 14:59 | P.PN ---
Subjective Progress Note Date: 01/05/22 Patient is a very pleasant 65-year-old female with a past medical history of hypertension, GERD, diabetes mellitus, and AML who was recently admitted under the hematology/oncology team undergoing induction chemotherapeutic treatment with Cytarabine from 12/16 till12/24. Patient was all right until yesterday evening when she started noticing fevers. Fevers were high-grade. Patient denies any shortness of breath. There was no complain of any cough. Patient did notice she was having diarrhea which was nonbloody. Patient denied any abdominal pain. She denied any urinary symptoms. Patient was empirically on ciprofloxacin, fluconazole, acyclovir. Patient was worked up in the ER, initial blood work showed WBC of 0.2, hemoglobin of 7.3 and platelet count of [address] abdomen and pelvis done showed some proximal jejunal wall thickening that could be gastroenteritis, there was no evidence of an diverticulitis. Patient was started on broad-spectrum antibiotics and was admitted to hospitalist service 12/29/21. Patient seen and examined. Patient afebrile since yesterday evening, states she feels better. Hemoglobin this morning is 4.9, platelet count is 1. Vital signs other than that are stable 12/30/21. Patient seen and examined. T-max of 100.9. Platelet count was low, being transfused platelets. Hemoglobin is 5.8. No evidence of any blood in the stools 12/31/21. Patient Seen and examined.. Complaining of swelling of lower extremities. Patient has gained 10 KGs of weight while in the hospital. 01/01/22. Patient seen and examined. Hemoglobin this morning is 7.8, platelet count of 7. 01/02. Patient seen and examined. Complaining of neck spasm. Hemoglobin this morning is 7.1, platelet count is 11 01/03. Patient seen and examined denies any abdominal pain. Having some loose stools. Continues to be afebrile. White count of 0.45, hemoglobin 7.1, platelet count 5 01/04/2022 Patient evaluated sitting up in chair. She was hoping for D/C home today. However Hgb 6.9 today and also platelet count 7. Patient to receive packed red blood cells x 2 and a dose of platelets. Patient reports having a bowel movement today which is formed. Sodium today 133, potassium 3.1.Overall states she is feeling better and stools are becoming more formed. Magnesium 1.2 today. Replace per protocol. Temperature 99 on empiric IV cefepime. Blood culture showing micrococcus most likely contaminent. ID is following. Oncology following. 01/05/2022 Patient reports difficult time sleeping last night. Counts have improved today post transfusion, white count 0.69, platelet 12, hgb 8.1. Sodium 131 today and patient will be gently hydrated overnight. Afebrile currently. ID following, on IV cefepime empirically. Review of Systems Constitutional: Denied any fatigue denied any fever. Cardio vascular: denied any chest pain, palpitations Gastrointestinal: denied any nausea, vomiting, diarrhea Pulmonary: Denied any shortness of breath cough Neurologic denied any new focal deficits All inpatient medications were reviewed and appropriate changes in these medications as dictated in the interval history and assessment and plan. PHYSICAL EXAMINATION: GENERAL: The patient is alert and oriented x3, not in any acute distress. Well developed, well nourished. HEENT: Pupils are round and equally reacting to light. EOMI. No scleral icterus. No conjunctival pallor. Normocephalic, atraumatic. No pharyngeal erythema. No thyromegaly. CARDIOVASCULAR: S1 and S2 present. No murmurs, rubs, or gallops. PULMONARY: Chest is clear to auscultation, no wheezing or crackles. ABDOMEN: Soft, nontender, nondistended, normoactive bowel sounds. No palpable organomegaly. MUSCULOSKELETAL: No joint swelling or deformity. EXTREMITIES: 2+ pitting edema of lower extremities bilaterally NEUROLOGICAL: Gross neurological examination did not reveal any focal deficits. SKIN: Bruising on chin Assessment and plan Neutropenic fevers Pancytopenia Micrococcus positive blood culture most likely a contaminent acute myeloid leukemia with recent hospital admission for induction chemotherapy through PICC line which possible sepsis as source of infection from PICC. Repeat blood culture is negative x 2. ID following. Diabetes mellitus Hypertension Hypomagnesemia GI prophylaxis DVT prophylaxis deffered secondary to low platelet count Full Code Plan; Monitor CBC Monitor electrolytes Follow-up on blood cultures Bleeding precautions Neutropenic precautions Patient is status post transfusion IV fluids overnight Continue cefepime, Flagyl Follow-up in ID recommendations The impression and plan of care has been dictated by Sade Harper, Nurse Practitioner as directed. Dr. Castro MD I have performed a history and physical examination and medical decision making of this patient, discussed the same with the dictator, and agree with the dictators assessment and plan as written, documented as a scribe. Based on total visit time, I have performed more than 50% of this visit. Objective - Vital Signs Vital signs: Vital Signs Temp 98.2 F 01/05/22 11:15 Pulse 86 01/05/22 11:15 Resp 18 01/05/22 11:15 BP 148/85 01/05/22 11:15 Pulse Ox 100 01/05/22 11:15 FiO2 Intake & Output 01/04/22 01/05/22 01/05/22 18:59 06:59 18:59 Intake Total 400 657 Output Total 3 Balance 400 654 Weight 108 kg 111.765 kg Intake: Intake, IV Titration 400 Amount Cefepime 2 gm In Sodium 100 Chloride 0.9% 100 ml @ 25 mls/hr IVPB Q8H [facility] Rx#: [id number] Magnesium Sulfate-D5w Pmx 300 1 gm In Dextrose/Water 1 100ml.bag @ 100 mls/hr IVPB Q1H [facility] Rx#: [id number] Blood Product 657 Platelet Pheresis Pas 347 Psoralen Unit [id number] Rc Irr As1 Unit 310 [id number] Output: Urine 3 Other: Voiding Method Toilet Toilet Toilet # Voids 1 - Labs CBC & Chem 7: 01/05/22 05:57 01/05/22 05:57 Labs: Abnormal Lab Results - Last 24 Hours (Table) 01/02/22 01/04/22 01/04/22 Range/Units 14:13 15:48 15:52 WBC (4.50-10.00) X 10*3/uL RBC (4.10-5.20) X 10*6/uL Hgb (12.0-15.0) g/dL Hct (37.2-46.3) % Plt Count (140-440) X 10*3/uL Plt Count Comment Neutrophils # (1.80-7.70) X 10*3/uL Lymphocytes # (0.90-5.00) X 10*3/uL Monocytes # (0.20-1.00) X 10*3/uL Eosinophils # (0.04-0.35) X 10*3/uL Immature Plt Fraction (1.1-6.1) % Sodium (135-145) mmol/L Potassium 3.0 L (3.5-5.1) mmol/L Anion Gap (10.00-18.00) mmol/L BUN (9.0-27.0) mg/dL Creatinine (0.6-1.5) mg/dL Glucose (70-110) mg/dL Calcium (8.7-10.3) mg/dL AST (13-35) U/L Total Protein (6.2-8.2) g/dL Albumin (3.8-4.9) g/dL Albumin/Globulin Ratio (1.60-3.17) g/dL Vitamin B1 19 L (38-122) ug/L Crossmatch See Detail 01/05/22 01/05/22 Range/Units 05:57 05:57 WBC 0.69 L* (4.50-10.00) X 10*3/uL RBC 2.65 L (4.10-5.20) X 10*6/uL Hgb 8.1 L (12.0-15.0) g/dL Hct 22.3 L (37.2-46.3) % Plt Count 12 L* (140-440) X 10*3/uL Plt Count Comment A Neutrophils # 0.05 L* (1.80-7.70) X 10*3/uL Lymphocytes # 0.50 L (0.90-5.00) X 10*3/uL Monocytes # 0.13 L (0.20-1.00) X 10*3/uL Eosinophils # 0 L (0.04-0.35) X 10*3/uL Immature Plt Fraction 6.9 H (1.1-6.1) % Sodium 131 L (135-145) mmol/L Potassium (3.5-5.1) mmol/L Anion Gap 9.80 L (10.00-18.00) mmol/L BUN 6.4 L (9.0-27.0) mg/dL Creatinine 0.4 L (0.6-1.5) mg/dL Glucose 139 H (70-110) mg/dL Calcium 8.0 L (8.7-10.3) mg/dL AST 9 L (13-35) U/L Total Protein 5.9 L (6.2-8.2) g/dL Albumin 3.4 L (3.8-4.9) g/dL Albumin/Globulin Ratio 1.36 L (1.60-3.17) g/dL Vitamin B1 (38-122) ug/L Crossmatch Microbiology - Last 24 Hours (Table) 01/02/22 20:10 Stool Culture - Preliminary Stool 12/29/21 17:16 Blood Culture - Final Blood No Growth after 144 hours 12/29/21 15:04 Blood Culture - Final Blood No Growth after 144 hours Assessment and Plan Time with Patient: Less than 30
[2022-01-05] MEDS: OLANZapine 2.5 MG TAB PO SCH (21:14)
[2022-01-05] MEDS: VERAPAMIL SR 120 MG TABLET.ER PO SCH (21:14)
--- NOTE | 2022-01-05 22:33 | P.PN ---
Subjective Progress Note Date: 01/05/22 the patient continues to have some generalized fatigue but denies any other complaints. She still has between 2 and 4 bowel movements but these aren't getting progressively more formed. No fever/chills/nausea/vomiting/abdominal pain. Appetite is fair. Objective - Vital Signs Vital signs: Vital Signs Temp 99.5 F 01/05/22 18:59 Pulse 90 01/05/22 18:59 Resp 15 01/05/22 18:59 BP 176/79 01/05/22 18:59 Pulse Ox 100 01/05/22 18:59 FiO2 Intake & Output 01/05/22 01/05/22 01/06/22 06:59 18:59 06:59 Intake Total 657 Output Total 3 Balance 654 Weight 111.765 kg Intake: Blood Product 657 Platelet Pheresis Pas 347 Psoralen Unit [id number] Rc Irr As1 Unit 310 [id number] Output: Urine 3 Other: Voiding Method Toilet Toilet # Voids 4 1 # Bowel Movements 1 - Constitutional General appearance: Present: no acute distress - EENT Eyes: Present: EOMI ENT: Present: hearing grossly normal, normal oropharynx - Respiratory Respiratory: bilateral: CTA - Cardiovascular Rhythm: regular Heart sounds: normal: S1, S2 - Gastrointestinal General gastrointestinal: Present: normal bowel sounds, soft - Integumentary Integumentary: Present: normal - Neurologic Neurologic: Present: CNII-XII intact - Musculoskeletal Musculoskeletal: Present: generalized weakness, strength equal bilaterally - Labs CBC & Chem 7: 01/05/22 05:57 01/05/22 05:57 Labs: Abnormal Lab Results - Last 24 Hours (Table) 01/02/22 01/04/22 01/05/22 Range/Units 14:13 15:48 05:57 WBC (4.50-10.00) X 10*3/uL RBC (4.10-5.20) X 10*6/uL Hgb (12.0-15.0) g/dL Hct (37.2-46.3) % Plt Count (140-440) X 10*3/uL Plt Count Comment Neutrophils # (1.80-7.70) X 10*3/uL Lymphocytes # (0.90-5.00) X 10*3/uL Monocytes # (0.20-1.00) X 10*3/uL Eosinophils # (0.04-0.35) X 10*3/uL Immature Plt Fraction (1.1-6.1) % Sodium 131 L (135-145) mmol/L Anion Gap 9.80 L (10.00-18.00) mmol/L BUN 6.4 L (9.0-27.0) mg/dL Creatinine 0.4 L (0.6-1.5) mg/dL Glucose 139 H (70-110) mg/dL Calcium 8.0 L (8.7-10.3) mg/dL AST 9 L (13-35) U/L Total Protein 5.9 L (6.2-8.2) g/dL Albumin 3.4 L (3.8-4.9) g/dL Albumin/Globulin Ratio 1.36 L (1.60-3.17) g/dL Vitamin B1 19 L (38-122) ug/L Crossmatch See Detail 01/05/22 Range/Units 05:57 WBC 0.69 L* (4.50-10.00) X 10*3/uL RBC 2.65 L (4.10-5.20) X 10*6/uL Hgb 8.1 L (12.0-15.0) g/dL Hct 22.3 L (37.2-46.3) % Plt Count 12 L* (140-440) X 10*3/uL Plt Count Comment A Neutrophils # 0.05 L* (1.80-7.70) X 10*3/uL Lymphocytes # 0.50 L (0.90-5.00) X 10*3/uL Monocytes # 0.13 L (0.20-1.00) X 10*3/uL Eosinophils # 0 L (0.04-0.35) X 10*3/uL Immature Plt Fraction 6.9 H (1.1-6.1) % Sodium (135-145) mmol/L Anion Gap (10.00-18.00) mmol/L BUN (9.0-27.0) mg/dL Creatinine (0.6-1.5) mg/dL Glucose (70-110) mg/dL Calcium (8.7-10.3) mg/dL AST (13-35) U/L Total Protein (6.2-8.2) g/dL Albumin (3.8-4.9) g/dL Albumin/Globulin Ratio (1.60-3.17) g/dL Vitamin B1 (38-122) ug/L Crossmatch Microbiology - Last 24 Hours (Table) 01/02/22 20:10 Stool Culture - Preliminary Stool 12/29/21 17:16 Blood Culture - Final Blood No Growth after 144 hours Assessment and Plan (1) Neutropenic fever Narrative/Plan: patient continues to remain afebrile, with fairly normal hemodynamics. Repeat cultures have remained negative. She continues on broad-spectrum antibiotics. Discuss with ID regarding possibility of discharge on orals Current Visit: Yes Status: Acute Code(s): D70.9 - NEUTROPENIA, UNSPECIFIED; R50.81 - FEVER PRESENTING WITH CONDITIONS CLASSIFIED ELSEWHERE SNOMED Code(s): 662927105 (2) Pancytopenia Narrative/Plan: CBC showed hemoglobin of 8.1, and platelets of portal. Therefore no transfusions required today.? Possible early signs of marrow recovery, as total WBC was 0.65 today. Current Visit: Yes Status: Acute Priority: High Code(s): D61.818 - OTHER P ANCYTOPENIA SNOMED Code(s): 948765996 (3) Acute myeloid leukemia Current Visit: No Status: Acute Priority: High Code(s): C92.00 - ACUTE MYELOBLASTIC LEUKEMIA, NOT HAVING ACHIEVED REMISSION SNOMED Code(s): 41639171
[2022-01-06] MEDS: SODIUM CHLORIDE 0.9% 1,000 ML IV SCH ×2 (02:24→09:26)
[2022-01-06] MEDS: CEFEPIME 2 GM in SODIUM CHLORIDE 0.9% 100 ML IVPB SCH ×3 (04:23→20:24)
[2022-01-06] MEDS: SALT AND SODA MOUTHWASH 1,000 ML PO SCH ×4 (04:25→20:24)
[2022-01-06] MEDS: ACETAMINOPHEN TAB 325 MG TAB PO PRN (05:38)
--- NOTE | 2022-01-06 07:10 | P.PN ---
Subjective Progress Note Date: 01/04/22 Principal diagnosis: Febrile neutropenia Patient is a 66-year-old female with a past medical history significant for hypertension acute myeloid leukemia in this patient who recently did have induction chemotherapy completed on 12/24/2021 through the left arm PICC line presenting to the hospital for fever initial work-up negative except CT abdominal pelvis did show some jejunal wall thickening could be gastroenteritis. On today's evaluation that is 01/04/2022, patient continues to be afebrile the patient is breathing comfortably on room air the patient denies chest pain shortness of breath or cough, the patient denies nausea vomiting no abdominal pain, the patient did have improvement in her diarrhea Objective - Vital Signs Vital signs: Vital Signs Temp 99 F 01/04/22 11:54 Pulse 92 01/04/22 11:54 Resp 16 01/04/22 11:54 BP 134/83 01/04/22 11:54 Pulse Ox 100 01/04/22 11:54 FiO2 Intake & Output 01/03/22 01/04/22 01/04/22 18:59 06:59 18:59 Intake Total 1029 350 Balance 1029 350 Weight 108 kg Intake: Intake, IV Titration 700 Amount Cefepime 2 gm In Sodium 100 Chloride 0.9% 100 ml @ 25 mls/hr IVPB Q8H [facility] Rx#: [id number] Sodium Chloride 0.9% 1, 600 000 ml @ 50 mls/hr IV . Q20H [facility] Rx#:[id number] Oral 350 Blood Product 329 Platelet Pheresis Pas 329 Psoralen Unit [id number] Other: Voiding Method Toilet Toilet Toilet # Voids 10 - Exam GENERAL DESCRIPTION: Elderly female up in the chair, no distress. No tachypnea or accessory muscle of respiration use. LUNGS: Unlabored breathing. Clear to auscultation anteriorly. No wheeze or crackle. HEART: S1, S2, regular rate and rhythm. No loud murmur ABDOMEN: Soft, no tenderness , guarding or rigidity, no organomegaly EXTREMITIES: No edema of feet. - Labs CBC & Chem 7: 01/05/22 05:57 01/05/22 05:57 Labs: Abnormal Lab Results - Last 24 Hours (Table) 01/03/22 01/04/22 Range/Units 19:05 06:08 Sodium 133 L (135-145) mmol/L Potassium 3.3 L 3.1 L (3.5-5.1) mmol/L BUN 4.8 L (9.0-27.0) mg/dL Creatinine 0.4 L (0.6-1.5) mg/dL Glucose 144 H (70-110) mg/dL Calcium 8.0 L (8.7-10.3) mg/dL Magnesium 1.2 L (1.5-2.4) mg/dL AST 8 L (13-35) U/L Total Protein 5.7 L (6.2-8.2) g/dL Albumin 3.3 L (3.8-4.9) g/dL Albumin/Globulin Ratio 1.38 L (1.60-3.17) g/dL Microbiology - Last 24 Hours (Table) 12/29/21 17:16 Blood Culture - Preliminary Blood No Growth after 120 hours 12/29/21 15:04 Blood Culture - Preliminary Blood No Growth after 120 hours 01/02/22 20:10 Stool Culture - Preliminary Stool Assessment and Plan (1) Neutropenic fever Current Visit: Yes Status: Acute Code(s): D70.9 - NEUTROPENIA, UNSPECIFIED; R50.81 - FEVER PRESENTING WITH CONDITIONS CLASSIFIED ELSEWHERE SNOMED Code(s): 898565688 Plan: 1patient presented to hospital with sepsis in this patient who did have a fever neutropenia in this patient recently completed her induction chemotherapy work- up so far negative with a chest x-ray was negative urine has been negative no significant tenderness to abdominal wall and a question of possible PICC line infection. 2Patient blood culture with micrococcus species questionably contamination repeat blood culture so far negative, vancomycin has been discontinued 3patient has shown some clinical improvement as for his diarrhea is concerned stool cultures are pending 4-patient to continue cefepime Flagyl along with Questran as needed Time with Patient: Less than 30
--- NOTE | 2022-01-06 07:12 | P.PN ---
Subjective Progress Note Date: 01/05/22 Principal diagnosis: Febrile neutropenia Patient is a 66-year-old female with a past medical history significant for hypertension acute myeloid leukemia in this patient who recently did have induction chemotherapy completed on 12/24/2021 through the left arm PICC line presenting to the hospital for fever initial work-up negative except CT abdominal pelvis did show some jejunal wall thickening could be gastroenteritis. On today's evaluation that is 01/05/2022, patient remains to be afebrile the patient is breathing comfortably on room air the patient denies chest pain shortness of breath or cough, the patient denies nausea vomiting no abdominal pain, the patient has decreased in frequency and forming up Objective - Vital Signs Vital signs: Vital Signs Temp 99.5 F 01/05/22 18:59 Pulse 90 01/05/22 18:59 Resp 15 01/05/22 18:59 BP 176/79 01/05/22 18:59 Pulse Ox 100 01/05/22 18:59 FiO2 Intake & Output 01/05/22 01/05/22 01/06/22 06:59 18:59 06:59 Intake Total 657 Output Total 3 Balance 654 Weight 111.765 kg Intake: Blood Product 657 Platelet Pheresis Pas 347 Psoralen Unit [id number] Rc Irr As1 Unit 310 [id number] Output: Urine 3 Other: Voiding Method Toilet Toilet Toilet # Voids 4 1 # Bowel Movements 1 - Exam GENERAL DESCRIPTION: Elderly female up in the chair, no distress. No tachypnea or accessory muscle of respiration use. LUNGS: Unlabored breathing. Clear to auscultation anteriorly. No wheeze or crackle. HEART: S1, S2, regular rate and rhythm. No loud murmur ABDOMEN: Soft, no tenderness , guarding or rigidity, no organomegaly EXTREMITIES: No edema of feet. - Labs CBC & Chem 7: 01/05/22 05:57 01/05/22 05:57 Labs: Abnormal Lab Results - Last 24 Hours (Table) 01/02/22 01/04/22 01/05/22 Range/Units 14:13 15:48 05:57 WBC (4.50-10.00) X 10*3/uL RBC (4.10-5.20) X 10*6/uL Hgb (12.0-15.0) g/dL Hct (37.2-46.3) % Plt Count (140-440) X 10*3/uL Plt Count Comment Neutrophils # (1.80-7.70) X 10*3/uL Lymphocytes # (0.90-5.00) X 10*3/uL Monocytes # (0.20-1.00) X 10*3/uL Eosinophils # (0.04-0.35) X 10*3/uL Immature Plt Fraction (1.1-6.1) % Sodium 131 L (135-145) mmol/L Anion Gap 9.80 L (10.00-18.00) mmol/L BUN 6.4 L (9.0-27.0) mg/dL Creatinine 0.4 L (0.6-1.5) mg/dL Glucose 139 H (70-110) mg/dL Calcium 8.0 L (8.7-10.3) mg/dL AST 9 L (13-35) U/L Total Protein 5.9 L (6.2-8.2) g/dL Albumin 3.4 L (3.8-4.9) g/dL Albumin/Globulin Ratio 1.36 L (1.60-3.17) g/dL Vitamin B1 19 L (38-122) ug/L Crossmatch See Detail 01/05/22 Range/Units 05:57 WBC 0.69 L* (4.50-10.00) X 10*3/uL RBC 2.65 L (4.10-5.20) X 10*6/uL Hgb 8.1 L (12.0-15.0) g/dL Hct 22.3 L (37.2-46.3) % Plt Count 12 L* (140-440) X 10*3/uL Plt Count Comment A Neutrophils # 0.05 L* (1.80-7.70) X 10*3/uL Lymphocytes # 0.50 L (0.90-5.00) X 10*3/uL Monocytes # 0.13 L (0.20-1.00) X 10*3/uL Eosinophils # 0 L (0.04-0.35) X 10*3/uL Immature Plt Fraction 6.9 H (1.1-6.1) % Sodium (135-145) mmol/L Anion Gap (10.00-18.00) mmol/L BUN (9.0-27.0) mg/dL Creatinine (0.6-1.5) mg/dL Glucose (70-110) mg/dL Calcium (8.7-10.3) mg/dL AST (13-35) U/L Total Protein (6.2-8.2) g/dL Albumin (3.8-4.9) g/dL Albumin/Globulin Ratio (1.60-3.17) g/dL Vitamin B1 (38-122) ug/L Crossmatch Microbiology - Last 24 Hours (Table) 01/02/22 20:10 Stool Culture - Preliminary Stool 12/29/21 17:16 Blood Culture - Final Blood No Growth after 144 hours Assessment and Plan (1) Neutropenic fever Current Visit: Yes Status: Acute Code(s): D70.9 - NEUTROPENIA, UNSPECIFIED; R50.81 - FEVER PRESENTING WITH CONDITIONS CLASSIFIED ELSEWHERE SNOMED Code(s): 299175808 Plan: 1patient presented to hospital with sepsis in this patient who did have a fever neutropenia in this patient recently completed her induction chemotherapy work- up so far negative with a chest x-ray was negative urine has been negative no significant tenderness to abdominal wall and a question of possible PICC line infection. 2Patient blood culture with micrococcus species questionably contamination repeat blood culture so far negative, vancomycin has been discontinued 3patient has shown some clinical improvement as for his diarrhea is concerned stool cultures are so far pending 4-patient continue with current treatment of cefepime Flagyl along with Questran as needed Time with Patient: Less than 30
[2022-01-06 08:51] LABS: Sodium 135 mmol/L (135-145)
[2022-01-06] MEDS ORDERED: MAGNESIUM OXIDE 400 MG TAB PO SCH (09:00)
[2022-01-06] MEDS: metFORMIN 500 MG TAB PO SCH (09:18)
[2022-01-06] MEDS: metroNIDAZOLE 500 MG TAB PO SCH ×3 (09:18→21:05)
[2022-01-06] MEDS: CHOLECALCIFEROL 25 MCG (1000 IU) TABLET PO SCH (09:18)
[2022-01-06] MEDS: FLUCONAZOLE 100 MG TAB PO SCH (09:19)
[2022-01-06] MEDS: CHOLESTYRAMINE (WITH SUGAR) 4 GM PACKET PO SCH ×2 (09:20→16:09)
[2022-01-06] MEDS: MAG HYDROX/AL HYDROX/SIMETH 30 ML, diphenhydrAMINE ELIXIR 75 MG, LIDOCAINE VISCOUS 2% 3... PO SCH ×6 (09:20→21:14)
[2022-01-06 10:13] LABS: ALT 18 U/L (4-34); AST 16 U/L (14-36); African American GFR (CKD) >90 (>60 ml/min/1.73 sqM); Albumin/Globulin Ratio 1.1; Alkaline Phosphatase 69 U/L (38-126); Anion Gap 9 mmol/L; Blood Urea Nitrogen 6 mg/dL (7-17); Calcium 7.6 mg/dL (8.4-10.2); Carbon Dioxide 21 mmol/L (22-30); Chloride 105 mmol/L (98-107); Globulin 2.7 g/dL; Glucose 124 mg/dL (74-99); Non-African American GFR(CKD) >90 (>60 ml/min/1.73 sqM); Potassium 3.6 mmol/L (3.5-5.1); Total Bilirubin 0.3 mg/dL (0.2-1.3); Total Protein 5.7 g/dL (6.3-8.2)
[2022-01-06 10:21] LABS: HCT 22.4 % (34.0-46.0); HGB 7.8 gm/dL (11.4-16.0); MCH 30.1 pg (25.0-35.0); MCHC 34.8 g/dL (31.0-37.0); MCV 86.3 fL (80.0-100.0); Mean Platelet Volume 10.8; RDW 14.5 % (11.5-15.5)
[2022-01-06 10:26] LABS: Platelet Count 23 k/uL (150-450)
--- NOTE | 2022-01-06 13:50 | CT ---
EXAMINATION TYPE: CT brain wo con DATE OF EXAM: 01/06/2022 COMPARISON: None HISTORY: 66-year-old female Confusion TECHNIQUE: Examination was done in axial plane without intravenous contrast. Coronal and sagittal r econstructions performed. CT DLP: 1109 mGycm Automated exposure control for dose reduction was used. FINDINGS: There is abnormal lentiform shaped extra-axial hyperdensity along the superior right frontal convexit y measuring up to 3.1 cm AP and 1.2 cm thick. Some adjacent subarachnoid blood is suggested, axial im age 37. There is some soft tissue thickening along the posterior margin of the left side of the clivus extend ing along the medial aspect of the left petrous ridge measuring up to 6 mm thick, axial image 11 thro ugh 16. Relative high density left paramedian cerebellum lesion measuring 9 mm, axial image 14 and sagittal i mage 27. No effacement of basal subarachnoid cisterns. No midline shift or hydrocephalus. King-white matter di fferentiation is maintained. Mild mucosal thickening floor of right maxillary sinus. More moderate within the ethmoid air cells an d right frontal sinus. There is leftward nasal septal deviation. Mastoid air cells well pneumatized. Orbits and globes are intact. IMPRESSION: 1. Abnormal extra-axial density superior right frontal convexity measuring 3.1 x 1.2 cm. Suggesting o f some adjacent subarachnoid blood. Subarachnoid/epidural hematoma difficult to exclude. Query any in jury. No midline shift or herniation. 2. Given a 9 mm lesion in the left paramedian cerebellum, correlate to exclude the possibility of a n eoplastic process/metastatic disease. MRI without and with contrast can further evaluate. 3. Some extra-axial soft tissue thickening along the left paramedian posterior margin of the clivus e xtending to the medial aspect of the left petrous ridge. Suspected underlying meningioma. This can al so be assessed on the patient's MRI. 4. Mild to moderate chronic paranasal sinus disease. A [place] level critical message alert has been initiated for Cait Valle MD via the [employer] on 01/06/2022 1:47 PM. This message alert has been sent to Cait Valle MD vi a the preferences provided by the clinician for the receipt of Radiology Critical Findings. Message I D [id number].
[2022-01-06 14:08] LABS: Lymphocytes # (M) 0.74 k/uL (1.0-4.8); Monocytes # (M) 0.15 k/uL (0-1.0); Myelocytes # (M) 0.02 k/uL (0); Myelocytes % 2 %; Neutrophils # (M) 0.09 k/uL (1.3-7.7); Neutrophils % (M) 9 %; Nucleated Red Blood Cells 0 /100 WBC (0-0); Total Cells Counted 100
--- NOTE | 2022-01-06 14:50 | P.PN ---
Subjective Progress Note Date: 01/06/22 Patient is a very pleasant 65-year-old female with a past medical history of hypertension, GERD, diabetes mellitus, and AML who was recently admitted under the hematology/oncology team undergoing induction chemotherapeutic treatment with Cytarabine from 12/16 till12/24. Patient was all right until yesterday evening when she started noticing fevers. Fevers were high-grade. Patient denies any shortness of breath. There was no complain of any cough. Patient did notice she was having diarrhea which was nonbloody. Patient denied any abdominal pain. She denied any urinary symptoms. Patient was empirically on ciprofloxacin, fluconazole, acyclovir. Patient was worked up in the ER, initial blood work showed WBC of 0.2, hemoglobin of 7.3 and platelet count of [address] abdomen and pelvis done showed some proximal jejunal wall thickening that could be gastroenteritis, there was no evidence of an diverticulitis. Patient was started on broad-spectrum antibiotics and was admitted to hospitalist service 12/29/21. Patient seen and examined. Patient afebrile since yesterday evening, states she feels better. Hemoglobin this morning is 4.9, platelet count is 1. Vital signs other than that are stable 12/30/21. Patient seen and examined. T-max of 100.9. Platelet count was low, being transfused platelets. Hemoglobin is 5.8. No evidence of any blood in the stools 12/31/21. Patient Seen and examined.. Complaining of swelling of lower extremities. Patient has gained 10 KGs of weight while in the hospital. 01/01/22. Patient seen and examined. Hemoglobin this morning is 7.8, platelet count of 7. 01/02. Patient seen and examined. Complaining of neck spasm. Hemoglobin this morning is 7.1, platelet count is 11 01/03. Patient seen and examined denies any abdominal pain. Having some loose stools. Continues to be afebrile. White count of 0.45, hemoglobin 7.1, platelet count 5 01/04/2022 Patient evaluated sitting up in chair. She was hoping for D/C home today. However Hgb 6.9 today and also platelet count 7. Patient to receive packed red blood cells x 2 and a dose of platelets. Patient reports having a bowel movement today which is formed. Sodium today 133, potassium 3.1.Overall states she is feeling better and stools are becoming more formed. Magnesium 1.2 today. Replace per protocol. Temperature 99 on empiric IV cefepime. Blood culture showing micrococcus most likely contaminent. ID is following. Oncology following. 01/05/2022 Patient reports difficult time sleeping last night. Counts have improved today post transfusion, white count 0.69, platelet 12, hgb 8.1. Sodium 131 today and patient will be gently hydrated overnight. Afebrile currently. ID following, on IV cefepime empirically. 01/06/2022 Patient evaluated this morning alert x 3 pending labwork for discharge. Hgb did come back at 7.8 today, also white count of 1.0, platelet count improved to 23. Patient also responded well to IV fluid with sodium of 135, potassium 3.6. Kidney function stable, glucose of 120s, calcium 7.6. Patient has been continued on IV cefepime empirically and oral flagyl. Fever has improved. Diarrhea has improved, stools are formed. Patient has had intermittent episode of confusion. Today she continues to complain of fullness in right ear, which was evaluated wi th otoscope, there is no redness or erythema noted, light reflex intact, no bulging of tympanic membrane, pearly lemus, translucent. Patient reports pain 8/10. Brain CT was performed showing critical findings of abnormal extra-axial density superior right frontal convexity measuring 3.1 x 1.2 cm suggesting of some adjacent subarachnoid blood. Subarachnoid/epidural hematoma difficult to exclude. There is a 9 mm lesion in the left paramedian cerebellum possible neoplastic/metastatic disease. There is extra-axial soft tissue thickening along the left paramedian posterior margin of the clivus extending into the medial aspect of the left petrous ridge this is possibly an underlying meningioma. 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 Noted that patient underwent abdominal pelvis CT this admission without evidence for mass or lymphadenopathy. Patient with recent induction chemotherapy for AML. Neurology is consulted for further review and discussed findings with neurol ogist. Review of Systems Constitutional: Denied any fatigue denied any fever, reports right ear fullness and pain. Also with headache. Cardio vascular: denied any chest pain, palpitations Gastrointestinal: denied any nausea, vomiting, diarrhea Pulmonary: Denied any shortness of breath cough Neurologic denied any new focal deficits All inpatient medications were reviewed and appropriate changes in these medications as dictated in the interval history and assessment and plan. PHYSICAL EXAMINATION: GENERAL: The patient is alert and oriented x2, confused. not in any acute distress. Well developed, well nourished. HEENT: Pupils are round and equally reacting to light. EOMI. No scleral icterus. No conjunctival pallor. Normocephalic, atraumatic. No pharyngeal erythema. No thyromegaly. CARDIOVASCULAR: S1 and S2 present. No murmurs, rubs, or gallops. PULMONARY: Chest is clear to auscultation, no wheezing or crackles. ABDOMEN: Soft, nontender, nondistended, normoactive bowel sounds. No palpable organomegaly. MUSCULOSKELETAL: No joint swelling or deformity. EXTREMITIES: Mild lower extremity edema. NEUROLOGICAL: Gross neurological examination did not reveal any focal deficits. Confusion. SKIN: Bruising on chin Assessment and plan Assessment Altered mental status /acute headache under investigation Acute abnormal extra axial density 3.1 x 1.2 cm possible subarachnoid/epidural hematoma right frontal convexity. Rule out neoplasm/metastatic disease - incidental finding of 9 mm lesion in the left paramedian cerebellum also there is possible meningioma Neutropenic fevers improving Pancytopenia improving Micrococcus positive blood culture most likely a contaminent, repeat blood culture negative acute myeloid leukemia with recent hospital admission for induction chemotherapy through PICC line which possible sepsis as source of infection from PICC. Diabetes mellitus Hypertension Hypomagnesemia GI prophylaxis DVT prophylaxis deffered secondary to low platelet count Full Code Plan; Neurology consultation further review of brain CT Possible transfer to tertiary care facility Bleeding precautions Neutropenic precautions Patient is status post transfusion Continue cefepime, Flagyl Follow-up in ID recommendations Prognosis remains guarded at this time PT/OT has been consulted The impression and plan of care has been dictated by Sade Harper Nurse Practitioner as directed. Dr. Castro MD I have performed a history and physical examination and medical decision making of this patient, discussed the same with the dictator, and agree with the dictators assessment and plan as written, documented as a scribe. Based on total visit time, I have performed more than 50% of this visit. Objective - Vital Signs Vital signs: Vital Signs Temp 98.4 F 01/06/22 11:20 Pulse 85 01/06/22 11:20 Resp 18 01/06/22 11:20 BP 147/81 01/06/22 11:20 Pulse Ox 100 01/06/22 11:20 FiO2 Intake & Output 01/05/22 01/06/22 01/06/22 18:59 06:59 18:59 Weight 110.4 kg Other: Voiding Method Toilet Toilet Toilet # Voids 4 1 1 # Bowel Movements 1 - Labs CBC & Chem 7: 01/06/22 03:10 01/06/22 03:10 Labs: Abnormal Lab Results - Last 24 Hours (Table) 01/06/22 01/06/22 Range/Units 03:10 03:10 WBC 1.0 L* (3.8-10.6) k/uL RBC 2.60 L (3.80-5.40) m/uL Hgb 7.8 L (11.4-16.0) gm/dL Hct 22.4 L (34.0-46.0) % Plt Count 23 L D (150-450) k/uL Neutrophils # (Manual) 0.09 L* (1.3-7.7) k/uL Lymphocytes # (Manual) 0.74 L (1.0-4.8) k/uL Myelocytes # (Manual) 0.02 H (0) k/uL Carbon Dioxide 21 L (22-30) mmol/L BUN 6 L (7-17) mg/dL Creatinine 0.37 L (0.52-1.04) mg/dL Glucose 124 H (74-99) mg/dL Calcium 7.6 L (8.4-10.2) mg/dL Total Protein 5.7 L (6.3-8.2) g/dL Albumin 3.0 L (3.5-5.0) g/dL Microbiology - Last 24 Hours (Table) 01/02/22 20:10 Stool Culture - Final Stool Assessment and Plan Time with Patient: Greater than 30
[2022-01-06] MEDS ORDERED: AMINOCAPROIC ACID 500 MG TAB PO SCH (16:15)
[2022-01-06] MEDS ORDERED: DESMOPRESSIN ACETATE 32 MCG in SODIUM CHLORIDE 0.9% 50 ML IVPB ONE (16:30)
[2022-01-06] MEDS ORDERED: levETIRAcetam IV 500 MG in SODIUM CHLORIDE 0.9% 100 ML IVPB STA (16:45)
[2022-01-06] MEDS ORDERED: LOSARTAN 50 MG TAB PO STA (17:05)
--- NOTE | 2022-01-06 17:06 | P.CNNES ---
History of Present Illness Consult date: 01/06/22 Requesting physician: Sade Harper Reason for Consult: subarachnoid/epidural hematoma right frontal History of Present Illness: Patient is a 66-year-old female with history of diabetes, hypertension, and recent diagnosis of leukemia, for which she received 7 days of chemotherapy from 12/16/2021 to 12/22/2021. Patient also has been receiving radiation therapy. Patient was discharged home, and returned to the hospital on 12/27/2021 for fever and diarrhea. Patient follows up with Dr. Parisi. Patient was having some altered mental status, and complaining of right ear pain this morning, for which patient underwent computed tomography scan of the head, which revealed multiple areas of focal intracranial hemorrhage as per computed tomography scan report. This prompted this neurology consultation. CT head revealed abnormal extra-axial density superior right frontal convexity measuring 3.1 x 1.2 cm. Suggesting of some adjacent subarachnoid blood. Subarachnoid/epidural hematoma difficult to exclude. Query any injury. No midline shift or herniation. There is also a 9 mm lesion in the left paramedian cerebellum, correlate to exclude the possibility of a neoplastic process/metastatic disease. MRI without and with contrast can further evaluate. Some extra-axial soft tissue thickening along the left paramedian posterior margin of the clivus extending to the medial aspect of the left petrous ridge. Suspected underlying meningioma. This can also be assessed on the patient's MRI. [id number] chronic paranasal sinus disease. I proceeded reviewed CT head, and feel all these lesions are possible small areas of hemorrhage, the largest involving the right frontal convexity as mentioned above. Patient's blood test shows WBC 1.0, hemoglobin 7.8, platelets 7 yesterday, 23 as of today. The lowest platelet count was 1 on 12/29/2021. D-dimer is elevated. Sodium is normal potassium 2.7, renal functions are normal. Hepatic panel is normal. Vaughn virus PCR, RSV, influenza screen and C. difficile negative. patient states that on 12/27/2021, while she was in the ER, she did suffer from a fall while going to the bathroom. She could not get her buttocks on the bed and fell on her buttocks. She did not hit her head. Patient states that since yesterday she has developed "chemo fog". Patient is feeling some nausea, does not feel hungry. She denies any shortness of breath, no chest or abdominal pain. Patient admits to having an ear ache since last night which she rated 7/10 which has been going for last 2 days. Also complaining of right shoulder blade pain, not as severe at this time 3/10. Patient has history of type 2 diabetes for last 5-6 years, hypertension. Denies any tobacco or alcohol use. Patient has been taking aspirin 81 mg daily prior to arrival to the hospital. Review of Systems Constitutional: Denies chills, Denies fever Eyes: denies blurred vision, denies diplopia Ears: right: earache (Pulsatile tinnitus) Cardiovascular: Denies chest pain, Denies shortness of breath Respiratory: Denies cough, Denies dyspnea Gastrointestinal: Reports diarrhea, Reports nausea, Denies abdominal pain, Denies vomiting Neurological: Reports as per HPI Psychiatric: Denies anxiety, Denies depression Endocrine: Reports weight change, Denies fatigue Hematologic/Lymphatic: Denies easy bleeding, Denies easy bruising Past Medical History Past Medical History: Cancer, Diabetes Mellitus, GERD/Reflux, Hypertension Additional Past Medical History / Comment(s): Acute myeloid leukemia/induction chemo 12/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 History of Any Multi-Drug Resistant Organisms: None Reported Past Surgical History: Section, Cholecystectomy, Hernia Repair, Orthopedic Surgery Additional Past Surgical History / Comment(s): 12/10/21 BMA, double lumen PICC, cholecystectomy/umbilical hernia repair, open repair umbilical hernia/partial omenectomy, surgery to remove uterine fibroids, L oophorectomy, R partial oophorectomy, surgery for nasal fracture, surgery to remove tailbone cysts, R shoulder surgery. Past Anesthesia/Blood Transfusion Reactions: Previous Problems w/ Anesthesia, Postoperative Nausea & Vomiting (PONV) Additional Past Anesthesia/Blood Transfusion Reaction / Comment(s): "very hard coming out of anesthesia" Smoking Status: Never smoker - Past Family History Father Family Medical History: Congestive Heart Failure (CHF) Additional Family Medical History / Comment(s): at age 83, possibly from heart issues- unsure. Mother Family Medical History: CVA/TIA, Deep Vein Thrombosis (DVT) Additional Family Medical History / Comment(s): deseased at age 77 from cva Medications and Allergies Home Medications Medication Instructions Recorded Confirmed Type [place]-3 Fatty Acids/Fish Oil [Fish 1 cap PO DAILY 01/30/18 12/28/21 History Oil 1,000 mg Softgel] Verapamil HCl [Verelan Pm] 100 mg PO HS 01/30/18 12/28/21 History metFORMIN HCL [Glucophage] 1,000 mg PO DAILY 01/30/18 12/28/21 History Acyclovir [Zovirax] 400 mg PO BID #42 tablet 12/23/21 12/28/21 Rx Ciprofloxacin HCl [Cipro] 500 mg PO Q12HR 1 Days #42 tab 12/23/21 12/28/21 Rx Fluconazole [Diflucan] 100 mg PO DAILY #21 tab 12/23/21 12/28/21 Rx OLANZapine [ZyPREXA] 2.5 mg PO HS #30 tablet 12/23/21 12/28/21 Rx Ondansetron [Zofran] 4 mg PO Q4HR PRN #45 tab 12/23/21 12/28/21 Rx Allergies Allergy/AdvReac Type Severity Reaction Status Date / Time hydrocodone [From Vicodin] AdvReac Nausea & Verified 12/28/21 07:11 Vomiting & Diarrhea latex AdvReac Itching Verified 12/28/21 07:11 Physical Examination - Vital Signs Vital Signs: Vital Signs Temp Pulse Resp BP Pulse Ox 01/06/22 11:20 98.4 F 85 18 147/81 100 01/06/22 04:53 98.5 F 86 16 143/79 100 01/05/22 18:59 99.5 F 90 15 176/79 100 Intake and Output 01/06/22 01/06/22 01/06/22 06:59 14:59 22:59 Other: Voiding Method Toilet # Voids 1 1 Weight 110.4 kg Patient is an elderly female, very pleasant, in no acute distress. Patient is slightly encephalopathic, slightly slow mentation however still fully oriented to time place and person. She knows it is December 2021 and that she is in [facility] in [place]. Speech and language functions are normal. Patient can name and repeat very well. No aphasia or dysarthria. Attention, concentration is slightly decreased and fund of knowledge is adequate. On cranial nerve examination, pupils are equal, round and reacting to light, visual lima are full on confrontation, with no neglect on double simultaneous stimulation. Extraocular muscles are intact with no nystagmus. Patient has very subtle left facial droop. Her tongue protrudes to the midline. Palatal elevation and sensation normal, hearing and shoulder shrug normal, facial sensation normal. On muscle strength testing, there is obvious left pronator drift, and it hits the bed. Patient's muscle strength is (right/left) deltoid 5/4, biceps 5/5, triceps 5/5, senior licensing manager 5/4, hip flexion 5-/5-, ankle dorsiflexion 5/5. Deep tendon reflexes are hypoactive, and plantars are flat bilaterally. Sensory to touch is equal with no neglect on double simultaneous stimulation. Cerebellar function showed obvious ataxia for [id number] testing in the left upper limb, but not on the right. Tone and bulk of muscles normal. Gait deferred.. On general examination, there is no carotid bruit or murmur, S1-S2 audible. Chest is clear on consultation. Abdomen is soft nontender. No organomegaly, bowel sounds present. Peripheral pulses are present. No edema. Results - Laboratory Findings CBC and BMP: 01/06/22 03:10 01/06/22 03:10 Abnormal Lab Findings: Abnormal Labs 12/27/21 12/27/21 12/27/21 21:40 21:40 22:47 WBC 0.2 L* RBC 2.20 L Hgb 7.3 L Hct 19.5 L* MCHC 37.7 H RDW Plt Count 4 L* D Plt Count Comment MPV Neutrophils # Neutrophils # (Manual) Lymphocytes # Lymphocytes # (Manual) Monocytes # Eosinophils # Myelocytes # (Manual) Immature Plt Fraction Fibrinogen D-Dimer Sodium 133 L Potassium Chloride 108 H Carbon Dioxide 20 L Anion Gap BUN Creatinine 0.50 L BUN/Creatinine Ratio Glucose 207 H Calcium 7.3 L Magnesium 1.5 L AST 13 L Alkaline Phosphatase Total Protein 5.4 L Albumin 2.9 L Albumin/Globulin Ratio Vitamin B1 Vitamin D 25-Hydroxy Urine Appearance Cloudy H Urine Protein Trace H Urine Glucose (UA) 2+ H Urine Blood Small H Urine Bacteria Rare H Urine Mucus Rare H Crossmatch 11/21/22 11/22/22 11/22/22 00:33 05:30 05:30 WBC 0.14 L* RBC 1.61 L Hgb 4.9 L* Hct 14.9 L* MCHC RDW 15.1 H Plt Count 1 L* Plt Count Comment A MPV Neutrophils # 0 L* Neutrophils # (Manual) Lymphocytes # 0.14 L Lymphocytes # (Manual) Monocytes # 0 L Eosinophils # 0 L Myelocytes # (Manual) Immature Plt Fraction 0 L Fibrinogen D-Dimer Sodium Potassium 3.1 L Chloride 110 H Carbon Dioxide 19.2 L Anion Gap 9.80 L BUN Creatinine 0.5 L BUN/Creatinine Ratio 20.80 H Glucose 122 H Calcium 7.3 L Magnesium AST 8 L Alkaline Phosphatase 33 L Total Protein 4.6 L Albumin 2.6 L Albumin/Globulin Ratio 1.30 L Vitamin B1 Vitamin D 25-Hydroxy Urine Appearance Urine Protein Urine Glucose (UA) Urine Blood Urine Bacteria Urine Mucus Crossmatch See Detail 12/30/21 12/30/21 12/30/21 11:06 11:06 20:13 WBC 0.3 L* RBC 1.94 L Hgb 5.8 L* D Hct 16.8 L* MCHC RDW 16.2 H Plt Count 8 L* D Plt Count Comment MPV Neutrophils # Neutrophils # (Manual) Lymphocytes # Lymphocytes # (Manual) Monocytes # Eosinophils # Myelocytes # (Manual) Immature Plt Fraction Fibrinogen D-Dimer Sodium Potassium 2.7 L* 2.9 L Chloride 110 H Carbon Dioxide 20 L Anion Gap BUN Creatinine 0.41 L BUN/Creatinine Ratio Glucose 118 H Calcium 7.3 L Magnesium AST Alkaline Phosphatase Total Protein 5.2 L Albumin 2.7 L Albumin/Globulin Ratio Vitamin B1 Vitamin D 25-Hydroxy Urine Appearance Urine Protein Urine Glucose (UA) Urine Blood Urine Bacteria Urine Mucus Crossmatch 12/31/21 12/31/21 12/31/21 05:51 05:51 05:51 WBC 0.26 L* RBC 2.22 L Hgb 6.5 L* Hct 18.8 L* MCHC RDW 15.1 H Plt Count 9 L* Plt Count Comment A MPV 14.3 H Neutrophils # 0.01 L* Neutrophils # (Manual) Lymphocytes # 0.25 L Lymphocytes # (Manual) Monocytes # 0 L Eosinophils # 0 L Myelocytes # (Manual) Immature Plt Fraction Fibrinogen 537 H D-Dimer 6.31 H Sodium Potassium 3.4 L Chloride Carbon Dioxide 19.9 L Anion Gap BUN Creatinine 0.4 L BUN/Creatinine Ratio 25.00 H Glucose Calcium 7.7 L Magnesium AST 9 L Alkaline Phosphatase 34 L Total Protein 4.9 L Albumin 2.9 L Albumin/Globulin Ratio 1.45 L Vitamin B1 Vitamin D 25-Hydroxy Urine Appearance Urine Protein Urine Glucose (UA) Urine Blood Urine Bacteria Urine Mucus Crossmatch 12/31/21 01/01/22 01/01/22 12:52 06:09 06:09 WBC 0.5 L* RBC 2.55 L Hgb 7.8 L D Hct 21.4 L MCHC RDW Plt Count 7 L* Plt Count Comment MPV Neutrophils # Neutrophils # (Manual) Lymphocytes # Lymphocytes # (Manual) Monocytes # Eosinophils # Myelocytes # (Manual) Immature Plt Fraction Fibrinogen D-Dimer Sodium 136 L Potassium 3.3 L Chloride Carbon Dioxide Anion Gap BUN 6 L Creatinine 0.38 L BUN/Creatinine Ratio Glucose 126 H Calcium 7.6 L Magnesium AST Alkaline Phosphatase 37 L Total Protein 5.4 L Albumin 2.8 L Albumin/Globulin Ratio Vitamin B1 Vitamin D 25-Hydroxy Urine Appearance Urine Protein Urine Glucose (UA) Urine Blood Urine Bacteria Urine Mucus Crossmatch See Detail 01/02/22 01/02/22 01/02/22 06:09 06:09 06:09 WBC 0.42 L* RBC 2.34 L Hgb 7.1 L Hct 19.3 L* MCHC RDW Plt Count 11 L* Plt Count Comment A MPV Neutrophils # 0 L* Neutrophils # (Manual) Lymphocytes # 0.41 L Lymphocytes # (Manual) Monocytes # 0.01 L Eosinophils # 0 L Myelocytes # (Manual) Immature Plt Fraction Fibrinogen 508 H D-Dimer Sodium Potassium 2.7 L* Chloride Carbon Dioxide Anion Gap BUN 4.1 L Creatinine 0.4 L BUN/Creatinine Ratio 10.10 L Glucose 116 H Calcium 8.0 L Magnesium AST 9 L Alkaline Phosphatase 38 L Total Protein 5.5 L Albumin 3.2 L Albumin/Globulin Ratio 1.37 L Vitamin B1 Vitamin D 25-Hydroxy Urine Appearance Urine Protein Urine Glucose (UA) Urine Blood Urine Bacteria Urine Mucus Crossmatch 01/02/22 01/02/22 01/02/22 14:13 14:13 14:13 WBC 0.4 L* RBC 2.34 L Hgb 7.4 L Hct 19.9 L* MCHC 37.2 H RDW Plt Count 9 L* Plt Count Comment MPV Neutrophils # Neutrophils # (Manual) Lymphocytes # Lymphocytes # (Manual) Monocytes # Eosinophils # Myelocytes # (Manual) Immature Plt Fraction Fibrinogen D-Dimer Sodium Potassium Chloride Carbon Dioxide Anion Gap BUN Creatinine BUN/Creatinine Ratio Glucose Calcium Magnesium 1.4 L AST Alkaline Phosphatase Total Protein Albumin Albumin/Globulin Ratio Vitamin B1 19 L Vitamin D 25-Hydroxy 21.3 L Urine Appearance Urine Protein Urine Glucose (UA) Urine Blood Urine Bacteria Urine Mucus Crossmatch 01/03/22 01/03/22 01/03/22 00:48 05:44 05:44 WBC 0.45 L* RBC 2.36 L Hgb 7.1 L Hct 19.5 L* MCHC RDW Plt Count 5 L* Plt Count Comment A MPV Neutrophils # 0 L* Neutrophils # (Manual) Lymphocytes # 0.42 L Lymphocytes # (Manual) Monocytes # 0.03 L Eosinophils # 0 L Myelocytes # (Manual) Immature Plt Fraction Fibrinogen D-Dimer Sodium Potassium 2.7 L* 3.0 L Chloride Carbon Dioxide Anion Gap BUN 4.1 L Creatinine 0.4 L BUN/Creatinine Ratio 10.88 L Glucose 117 H Calcium 8.0 L Magnesium AST 11 L Alkaline Phosphatase Total Protein 5.6 L Albumin 3.3 L Albumin/Globulin Ratio 1.43 L Vitamin B1 Vitamin D 25-Hydroxy Urine Appearance Urine Protein Urine Glucose (UA) Urine Blood Urine Bacteria Urine Mucus Crossmatch 01/03/22 01/03/22 01/03/22 05:44 10:13 19:05 WBC RBC Hgb Hct MCHC RDW Plt Count Plt Count Comment MPV Neutrophils # Neutrophils # (Manual) Lymphocytes # Lymphocytes # (Manual) Monocytes # Eosinophils # Myelocytes # (Manual) Immature Plt Fraction Fibrinogen D-Dimer Sodium Potassium 3.0 L 3.1 L 3.3 L Chloride Carbon Dioxide Anion Gap BUN Creatinine BUN/Creatinine Ratio Glucose Calcium Magnesium AST Alkaline Phosphatase Total Protein Albumin Albumin/Globulin Ratio Vitamin B1 Vitamin D 25-Hydroxy Urine Appearance Urine Protein Urine Glucose (UA) Urine Blood Urine Bacteria Urine Mucus Crossmatch 01/04/22 01/04/22 01/04/22 06:08 06:08 15:48 WBC 0.48 L* RBC 2.31 L Hgb 6.9 L* Hct 20.2 L MCHC RDW Plt Count 7 L* Plt Count Comment A MPV Neutrophils # 0.01 L* Neutrophils # (Manual) Lymphocytes # 0.42 L Lymphocytes # (Manual) Monocytes # 0.04 L Eosinophils # 0 L Myelocytes # (Manual) Immature Plt Fraction Fibrinogen D-Dimer Sodium 133 L Potassium 3.1 L Chloride Carbon Dioxide Anion Gap BUN 4.8 L Creatinine 0.4 L BUN/Creatinine Ratio Glucose 144 H Calcium 8.0 L Magnesium 1.2 L AST 8 L Alkaline Phosphatase Total Protein 5.7 L Albumin 3.3 L Albumin/Globulin Ratio 1.38 L Vitamin B1 Vitamin D 25-Hydroxy Urine Appearance Urine Protein Urine Glucose (UA) Urine Blood Urine Bacteria Urine Mucus Crossmatch See Detail 01/04/22 01/05/22 01/05/22 15:52 05:57 05:57 WBC 0.69 L* RBC 2.65 L Hgb 8.1 L Hct 22.3 L MCHC RDW Plt Count 12 L* Plt Count Comment A MPV Neutrophils # 0.05 L* Neutrophils # (Manual) Lymphocytes # 0.50 L Lymphocytes # (Manual) Monocytes # 0.13 L Eosinophils # 0 L Myelocytes # (Manual) Immature Plt Fraction 6.9 H Fibrinogen D-Dimer Sodium 131 L Potassium 3.0 L Chloride Carbon Dioxide Anion Gap 9.80 L BUN 6.4 L Creatinine 0.4 L BUN/Creatinine Ratio Glucose 139 H Calcium 8.0 L Magnesium AST 9 L Alkaline Phosphatase Total Protein 5.9 L Albumin 3.4 L Albumin/Globulin Ratio 1.36 L Vitamin B1 Vitamin D 25-Hydroxy Urine Appearance Urine Protein Urine Glucose (UA) Urine Blood Urine Bacteria Urine Mucus Crossmatch 01/06/22 01/06/22 03:10 03:10 WBC 1.0 L* RBC 2.60 L Hgb 7.8 L Hct 22.4 L MCHC RDW Plt Count 23 L D Plt Count Comment MPV Neutrophils # Neutrophils # (Manual) 0.09 L* Lymphocytes # Lymphocytes # (Manual) 0.74 L Monocytes # Eosinophils # Myelocytes # (Manual) 0.02 H Immature Plt Fraction Fibrinogen D-Dimer Sodium Potassium Chloride Carbon Dioxide 21 L Anion Gap BUN 6 L Creatinine 0.37 L BUN/Creatinine Ratio Glucose 124 H Calcium 7.6 L Magnesium AST Alkaline Phosphatase Total Protein 5.7 L Albumin 3.0 L Albumin/Globulin Ratio Vitamin B1 Vitamin D 25-Hydroxy Urine Appearance Urine Protein Urine Glucose (UA) Urine Blood Urine Bacteria Urine Mucus Crossmatch Assessment and Plan Assessment: * Multifocal areas of intracranial hemorrhage, largest involving the right epidural region in the superior right frontal convexity measuring 3.1 x 1.2 cm, also with slight subarachnoid and some small possible intraparenchymal hemorrhage. Likely due to severe thrombocytopenia, induced from leukemia/chemotherapy. * Mild left hemiparesis, mainly involving the left facial brachial region. Likely due to above. * Acute leukemia, currently receiving chemo and radiation. * Hypertension * Diabetes * Obesity Plan: * Patient's neurological functions are deteriorating. Per internal medicine report, she has no focal deficits earlier but now she has mild deficits on the left side with definite left arm weakness. Patient needs urgent neurosurgical evaluation. * Patient is going to receive platelet infusion. * Hematology oncology on board, also receiving DDAVP and Amicar. * Patient to undergo CTA of head and neck (as per recommendation from [facility] and [facility]) * We will give Keppra 500 mg 1 dose, for seizure prophylaxis. I would avoid bigger dose to prevent any hematologic side effects. * EEG when possible. * No antiplatelets or anticoagulants. * Elevated head and of the bed to 30. * Aggressive control of blood pressure to target <140/80 * Transfer to ICU. Patient has been accepted to [facility] for neurosurgical consultation. * Discussed with nursing staff, primary team and patient's . Thank you for the consult. Time with Patient: Greater than 30
[2022-01-06] MEDS ORDERED: hydrALAZINE HCL 20 MG/ML 1 ML VIAL IVP PRN ×2 (17:13→19:14)
--- NOTE | 2022-01-06 18:09 | P.DS ---
Providers Date of admission: 12/28/21 00:34 Attending physician: Cait Valle Consults: 12/28/21 00:34 Consult Physician Routine Consulting Provider: Jace Reyez Consult Reason/Comments: neutropenic fever Do you want consulting provider notified?: Yes 12/28/21 09:37 Consult Physician Routine Consulting Provider: Avi Parisi Consult Reason/Comments: neutroprnic fever Do you want consulting provider notified?: Yes 01/06/22 13:56 Consult Physician Stat Consulting Provider: Ankur Garcia Consult Reason/Comments: subarachnoid/epidural hematoma right frontal Do you want consulting provider notified?: Yes Primary care physician: Kenneth Jeferson [facility] Course: Final Diagnosis -Diarrhea possibly from recent chemotherapy, jejunal wall thickening found on abdominal CT, possible gastroenteritis, improved. -Unwitnessed fall in the emergency center, pt states she did not hit head unclear whether staff/provider was notified by patient -Intracranial hemorrhage, multifocal, superior right frontal convexity 3.1 x 1.2 cm with slight adjacent subarachnoid blood. most likely from severe thrombocytopenia induced by leukemia/chemotherapy. -Rule out neoplasm/metastatic disease -9 mm lesion in the left paramedian cerebellum also there is possible meningioma -Altered mental status /acute headache most likely secondary to above with symptoms mild acute left hemiparesis, left facial droop evidence for deteriorating neurological functions. -Neutropenic fevers improving -Pancytopenia improving -Acute myeloid leukemia with recent hospital admission for induction chemotherapy through PICC line -Micrococcus positive blood culture most likely a contaminent, repeat blood culture negative x2 -Diabetes mellitus type 2 -Hypertension -Hypomagnesemia, improved -History fibroid tumor with resection -History cholecystectomy -Obesity -Full Code Discharge Disposition Patient is recommended for transfer to tertiary care facility for further evaluation by neurosurgery and possible endovascular services regarding critical brain CT findings of possible subarachnoid/epidural hematoma superior right frontal convexity with possible adjacent subarachnoid blood. Patient is high risk for continued intracranial bleeding secondary to platelet count of 23,000. Patient will be transferred to the ICU for closer monitoring pending transfer. Head of bed recommended to stay above 30 degrees and recommend to limit activity level. Avoid antiplatelets/anticoagulants. Dr. Lang at [facility] has accepted patient as attending and Dr. Leung who specializes in neurosurgery and endovascular services has accepted the patient as consulting provider. Guarded overall prognosis, patient is having episodes of acute confusion with evolving focal deficits, currently with left pronator drift and left upper extremity weakness left hand grasp 4/5 and also subtle left facial droop, ataxia noted with finger to nose testing on the left as well. Neurology has evaluated the patient. Neurosurgery from [facility] has requested CT angiography head/neck prior to transfer. Patient to receive 1 unit packed red blood cells, 1 dose of platelets. Patient to receive transfusion of desmopression, and also to receive aminocaproic acid every 8 hours for 6 doses. Target blood pressure recommended for less than 140/80. Patient is given a dose of IV keppra 500 mg x1 empirically recommended by neurology. Hospital Course This is a pleasant 65-year-old female who follows with Dr. Kenneth Govea, medical history significant for hypertension, gastroesophageal reflux disease, diabetes mellitus. Patient was recently diagnosed with acute myeloid leukemia and the end of november and was recently admitted to the hospital under hematology oncology services for induction chemotherapy with cytarabine from 12/16 to 12/24/21 and was discharged home. Patient had PICC line placed to her left upper extremity prior which is currently in place. She presents to the hospital on 12/27/21 with episodes of acute nonbloody diarrhea as well as fever. She has been on empiric coverage with ciprofloxacin, fluconazole, and acyclovir. No chest pain no shortness of breath on admission. On initial blood work patient had significant pancytopenia with white count of 0.2, hgb 7.3, hct 19.5, platelet count of 4. Sodium of 133, potassium 3.6, chloride 108, carbon dioxide 20, glucose 207, magnesium 1.5. Urine is cloudy with trace protein, small blood. On admission, coronavirus, Influenza A/B, RSV, C.Difficile are all negative. Patient had fever of 102.[address] on admission[address] Abdominal pelvis CT showing proximal jejunal wall thickening that could be gastroenteritis which is new compared to old exam with minimal colonic diverticulosis. No evidence for pancreatic mass, no pelvic mass, no free fluid in pelvis, no bowel obstruction. Chest xray negative. EKG showing sinus tachycardia heart rate 118, no ST or T wave changes noted. Patient is admitted to the hospital on oncology-medical floor with consult placed to oncology and infectious disease services. She was started on empiric antibiotic coverage with IV cefepime 100 mls every 8 hours and continues on oral metronidazole 500 mg TID and also oral fluconazole 100 mg po daily. Fevers have improved some. Patient received a total of 5 units of packed red blood cells and also 6 units of platelets. At the lowest, platelets had dropped to 1 and hemoglobin had dropped to 4.9 on 12/29. Current platelet count of 23 and hemoglobin of 7.8. Patient was pending discharge on 01/06/22 however she developed episode of acute confusion and seemed slow to respond. She was also slightly agitated. Patient was complaining of pain to the right ear rating about an 8/10 and states there is fullness and aching. She stated it felt similar to prior ear infection she had had. She also complained of generalized headache which was difficult for her to pinpoint the exact location which was acute onset. Denied vision changes. Exam of right ear reveals intact tympanic membrane, no erythema or bulging noted. For this reason brain CT without contrast was ordered and patient was found to have critical findings of abnormal extra-axial density superior right frontal convexity measuring 3.1 x 1.2 cm suggesting of some adjacent subarachnoid blood. Subarachnoid/epidural hematoma difficult to exclude. There is a 9 mm lesion in the left paramedian cerebellum possible neoplastic/metastatic disease. There is extra-axial soft tissue thickening along the left paramedian posterior margin of the clivus extending into the medial aspect of the left petrous ridge this is possibly an underlying meningioma. There is mild to moderate chronic paranasal sinus disease. MRI follow up recommended for further evaluation of findings. -Patient does admit to falling in the emergency center this admission, unwitnessed. States she was walking to the bathroom when she fell and landed on her butt. Denies hitting her head. Unclear whether staff was aware of incident. Neurology was consulted and CT reviewed and felt findings consistent with areas of hemorrhage. Patient has deteriorating neurological deficits of left hemiparesis with left arm drift as well as mild left facial droop. Patient is alert x3 however continues to be slow to respond. CTA head/neck has been ordered for further evaluation. Under recommendations from oncology, patient to receive 1 unit packed red blood cells, 1 dose of platelets. Patient to receive transfusion of desmopression, and also to receive aminocaproic acid every 8 hours for 6 doses. Target blood pressure recommended for less than 140 systolic. In addition to home medication of verapamil 120 mg HS patient has been started on losartan 50 mg daily and also PRN hydralazine 10 mg every 6 hours. Blood pressure currently 158/91. Patient has been started on IV keppra empirically recommended by neurology. Transfer to higher level of care initiated and Dr. Lang at [facility] has accepted patient to the intensive care unit with neurosurgery consultation. Patient will be upgraded to intensive care unit pending available bed at [facility]. Prognosis remains guarded, patient is high risk for continued intracranial bleeding secondary to thrombocytopenia/pancytopenia. 01/06/2022 Patient evaluated this morning alert x 3 pending labwork for discharge. Hgb did come back at 7.8 today, also white count of 1.0, platelet count improved to 23. Patient also responded well to IV fluid with sodium of 135, potassium 3.6. Kidney function stable, glucose of 120s, calcium 7.6. Patient has been continued on IV cefepime empirically and oral flagyl. Fever has improved. Diarrhea has improved, stools are formed. Patient has had intermittent episode of confusion. Today she continues to complain of fullness in right ear, which was evaluated with otoscope, there is no redness or erythema noted, light reflex intact, no bulging of tympanic membrane, pearly lemus, translucent. Patient reports pain 7/10. She also reports headache mostly in the nape of neck. Brain CT was performed showing critical findings of intracranial hemorrhage. -Lungs are clear, S1 S2 auscultated, regular rate and rhythm. Abdomen is soft and nontender, normoactive bowel sounds. No peripheral edema noted. Earlier in the day no focal neurological deficits noted. Patient was evaluated ambulating to restroom with and again no focal weakness noted. Upon neurology evaluation a few hours later patient had mild left hemiparesis and mild left facial droop which continues. Case was discussed with neurology and oncology. Above mentioned recommendations in place and patient is pending transfer to [facility] for neurosurgical evaluation. Thank you for allowing us to participate in the care of this patient. Pending transfer to [facility] for urgent neurosurgical evaluation. The impression and plan of care has been dictated by Sade Harper, Nurse Practitioner as directed. Dr. Castro MD I have performed a history and physical examination and medical decision making of this patient, discussed the same with the dictator, and agree with the dictators assessment and plan as written, documented as a scribe. Based on total visit time, I have performed more than 50% of this visit. Patient Condition at Discharge: Serious Plan - Discharge Summary Discharge Rx Participant: No New Discharge Prescriptions: No Action Verapamil HCl [Verelan Pm] 100 mg PO HS [place]-3 Fatty Acids/Fish Oil [Fish Oil 1,000 mg Softgel] 1 cap PO DAILY metFORMIN HCL [Glucophage] 1,000 mg PO DAILY Fluconazole [Diflucan] 100 mg PO DAILY #21 tab OLANZapine [ZyPREXA] 2.5 mg PO HS #30 tablet Ciprofloxacin HCl [Cipro] 500 mg PO Q12HR 1 Days #42 tab Acyclovir [Zovirax] 400 mg PO BID #42 tablet Ondansetron [Zofran] 4 mg PO Q4HR PRN #45 tab PRN Reason: Nausea Discharge Medication List [place]-3 Fatty Acids/Fish Oil [Fish Oil 1,000 mg Softgel] 1 cap PO DAILY 01/30/18 [History] Verapamil HCl [Verelan Pm] 100 mg PO HS 01/30/18 [History] metFORMIN HCL [Glucophage] 1,000 mg PO DAILY 01/30/18 [History] Acyclovir [Zovirax] 400 mg PO BID #42 tablet 12/23/21 [Rx] Ciprofloxacin HCl [Cipro] 500 mg PO Q12HR 1 Days #42 tab 12/23/21 [Rx] Fluconazole [Diflucan] 100 mg PO DAILY #21 tab 12/23/21 [Rx] OLANZapine [ZyPREXA] 2.5 mg PO HS #30 tablet 12/23/21 [Rx] Ondansetron [Zofran] 4 mg PO Q4HR PRN #45 tab 12/23/21 [Rx] Follow up Appointment(s)/Referral(s): Kenneth Govea MD [Primary Care Provider] - 1-2 days
[2022-01-06 18:23] LABS: Glucose,Whole Blood 134 mg/dL (70-110)
--- NOTE | 2022-01-06 19:05 | CT ---
EXAMINATION TYPE: CT angio head neck CT DLP: 712.7 mGycm, Automated exposure control for dose reduction was used. DATE OF EXAM: 01/06/2022 6:28 PM COMPARISON: CT brain same day. CT chest 08/15/2020 CLINICAL INDICATION:Female, 66 years old with history of subarachnoid hemorrhage;, brain bleed TECHNIQUE: Axially acquired helical CT angiogram of the head and neck was obtained with contrast. Axi al images are supplemented with 3D reconstructions which [facility] NASCET criteria used. Contrast used:65 mL of Isovue 370 with IV Contrast, Oral contrast used: None. FINDINGS: CTA HEAD: Right middle cranial fossa higher density area in the anterior aspect of the right middle cranial fos sa measuring 13 x 10 mm. Unclear what vessel this is coming off from it could be coming from the righ t ophthalmic artery (series 415 image 80) versus a branch of the M2 segment of the middle cerebral ar dave. There is dural thickening of the left aspect of the clivus with ill-defined soft tissue appears to ex tend cephalad into the left cavernous sinuses and left Meckel's caves. Increased attenuation is extending along the convexity of the right frontal lobe best appreciated on series 415 image 106 as seen on prior. The visualized portions of the internal carotid arteries, middle cerebral arteries, anterior cerebral arteries, and posterior cerebral arteries are patent. origin of the right posterior cerebral artery. Subtle area within the cerebellum remains present on clear whether this is artifact measuring up to 1 0 mm. The basilar and vertebral arteries are patent. CTA NECK: Right Carotid System: The common carotid artery and external carotid artery are patent. The carotid bifurcation demonstrate s no evidence of hemodynamically significant stenosis. The remaining portions of the internal carotid artery demonstrate normal size without significant narrowing. Left Carotid System: The common carotid artery and external carotid artery are patent. The carotid bifurcation demonstrate s no evidence of hemodynamically significant stenosis. The remaining portions of the internal carotid artery demonstrate normal size without significant narrowing. Vertebral arteries are patent without evidence hemodynamically significant stenosis. There is a three-vessel aortic arch. The origins of the great vessels are patent. No evidence of hemo dynamically significant stenosis. Left upper lobe pulmonary nodule measuring 8 mm. IMPRESSION: 1. Right middle cranial fossa enhancing 13 x 10 mm lesion suspicious for aneurysm. This can be furth er evaluated with MRI/MRA. 2. Thickening of the dura along the clivus on the left and towards the left cavernous sinus and left Meckel's cave. Further evaluation with MRI brain with and without IV contrast is recommended. 3. Suspected right extra-axial blood products over the convexity of the right frontal lobe as seen on prior CT. This can be further evaluated with MRI. 4. No evidence of dissection of the cervical internal carotid arteries or vertebral arteries or any e vidence of significant stenosis at the carotid bifurcations. 5. Subtle increased density within the left cerebellum which could represent a intra-axial lesion. 6. 8 mm left upper lobe pulmonary nodule. Short-term follow-up in 3 6 months is recommended. This is new from 08/15/2020
[2022-01-06] MEDS ORDERED: hydrALAZINE HCL 20 MG/ML 1 ML VIAL IVP STA (19:14)
[2022-01-06 19:16] LABS: INR 1.1 (<1.2); Partial Thromboplastin Time 24.4 sec (22.0-30.0); Prothrombin Time 11.8 sec (9.0-12.0)
[2022-01-06 20:07] VITALS: TEMP 99.8
[2022-01-06] MEDS: VERAPAMIL SR 120 MG TABLET.ER PO SCH (20:24)
[2022-01-06] MEDS: OLANZapine 2.5 MG TAB PO SCH (20:24)
--- NOTE | 2022-01-06 20:34 | P.PN ---
Subjective Progress Note Date: 01/06/22 The patient was evaluated in the a.m., at which time she had no specific complaints. No fever or chills. She denied any obvious bleeding, or headache, nausea vomiting. She continued to have some persistent fatigue. Objective - Vital Signs Vital signs: Vital Signs Temp 99.8 F H 01/06/22 20:00 Pulse 107 H 01/06/22 20:00 Resp 19 01/06/22 20:00 BP 143/77 01/06/22 20:00 Pulse Ox 95 01/06/22 20:00 FiO2 Intake & Output 01/06/22 01/06/22 01/07/22 06:59 18:59 06:59 Intake Total 371 75 Output Total 700 Balance 371 -625 Weight 110.4 kg Intake: IV 75 Sodium Chloride 0.9% 1, 75 000 ml @ 75 mls/hr IV . [id number] [facility] Rx#:[id number] Blood Product 371 Platelet Pheresis Pas 371 Psoralen Unit [id number] Output: Urine 700 Other: Voiding Method Toilet Toilet Indwelling Catheter # Voids 1 1 - Constitutional General appearance: Present: no acute distress - EENT Eyes: Present: EOMI ENT: Present: hearing grossly normal, normal oropharynx - Respiratory Respiratory: bilateral: CTA - Cardiovascular Rhythm: regular Heart sounds: normal: S1, S2 - Gastrointestinal General gastrointestinal: Present: normal bowel sounds, soft - Integumentary Integumentary: Present: normal - Neurologic Neurologic: Present: CNII-XII intact - Musculoskeletal Musculoskeletal: Present: generalized weakness, strength equal bilaterally - Psychiatric Psychiatric: Present: A&O x's 3, appropriate affect - Labs CBC & Chem 7: 01/06/22 03:10 01/06/22 03:10 Labs: Abnormal Lab Results - Last 24 Hours (Table) 01/06/22 01/06/22 01/06/22 Range/Units 03:10 03:10 18:21 WBC 1.0 L* (3.8-10.6) k/uL RBC 2.60 L (3.80-5.40) m/uL Hgb 7.8 L (11.4-16.0) gm/dL Hct 22.4 L (34.0-46.0) % Plt Count 23 L D (150-450) k/uL Neutrophils # (Manual) 0.09 L* (1.3-7.7) k/uL Lymphocytes # (Manual) 0.74 L (1.0-4.8) k/uL Myelocytes # (Manual) 0.02 H (0) k/uL Carbon Dioxide 21 L (22-30) mmol/L BUN 6 L (7-17) mg/dL Creatinine 0.37 L (0.52-1.04) mg/dL Glucose 124 H (74-99) mg/dL POC Glucose (mg/dL) 134 H (70-110) mg/dL Calcium 7.6 L (8.4-10.2) mg/dL Total Protein 5.7 L (6.3-8.2) g/dL Albumin 3.0 L (3.5-5.0) g/dL Microbiology - Last 24 Hours (Table) 01/02/22 20:10 Stool Culture - Final Stool Assessment and Plan (1) Neutropenic fever Narrative/Plan: The patient has now been afebrile for several days, with repeat cultures negative. WBC yesterday actually showed an increase. Case was discussed with ID, once labs were obtained showing further increase of WBC to 1000. They were agreeable to discharge patient home with oral antibiotics. Current Visit: Yes Status: Acute Code(s): D70.9 - NEUTROPENIA, UNSPECIFIED; R50.81 - FEVER PRESENTING WITH CONDITIONS CLASSIFIED ELSEWHERE SNOMED Code(s): 107001038 (2) Pancytopenia Narrative/Plan: Labs showed improvement with hemoglobin staying about 7, at 7.8. Platelet counts were improved to 23,000. WBC is also improved 1000. This appears to indicate the onset of bone marrow recovery. Continue to monitor. Based on the counts the plan was to discharge the patient home on oral antibiotics, Diflucan and acyclovir with repeat blood draw in the office on 01/08. Current Visit: Yes Status: Acute Priority: High Code(s): D61.818 - OTHER PANCYTOPENIA SNOMED Code(s): 188464616 (3) Acute myeloid leukemia Narrative/Plan: Status post induction 7+3. As noted above labs appear to indicate the beginning of marrow recovery. Continue to monitor. Plan for restaging bone marrow once counts have stabilized post recovery. Current Visit: No Status: Acute Priority: High Code(s): C92.00 - ACUTE MYELOBLASTIC LEUKEMIA, NOT HAVING ACHIEVED REMISSION SNOMED Code(s): 57045140 Plan: Addendum: Patient was initially evaluated in the a.m., with examination, and assessment/plan as noted above. Given the improvement in counts and persistent lack of fevers and other symptoms it was discussed with the ID and admitting service and the patient could be discharged on oral antibiotics. The patient subsequently developed some mental status changes, with intermittent lack of verbal responses, and difficulty in finding words. This was noted by nursing and communicated to the admitting service ordered a CT of the brain. This showed evidence of intracranial bleed most prominently in the frontal region. On been contacted by nursing, additional platelets were ordered stat. I also ordered DDAVP, and started the patient on Amicar. Neurology were consulted. Case was discussed with the admitting service and transfer to a tertiary institution with neurosurgery availability was strongly recommended. The process for the same was put in motion by the admitting service.
[2022-01-06 21:02] LABS: HCT 22.9 % (34.0-46.0); HGB 8.6 gm/dL (11.4-16.0); MCH 31.7 pg (25.0-35.0); MCHC 37.6 g/dL (31.0-37.0); MCV 84.4 fL (80.0-100.0); Mean Platelet Volume 9.8; Poikilocytosis Slight; RBC 2.71 m/uL (3.80-5.40); RDW 13.8 % (11.5-15.5)
[2022-01-06 21:35] LABS: Platelet Count 42 k/uL (150-450); WBC 1.2 k/uL (3.8-10.6)
[2022-01-06 22:02] VITALS: BP 142/79; PULSE 122; RESP 12
[2022-01-06 22:35] LABS: Lymphocytes # (M) 0.71 k/uL (1.0-4.8); Metamyelocytes # (M) 0.02 k/uL (0); Metamyelocytes % 2 %; Monocytes # (M) 0.23 k/uL (0-1.0); Myelocytes # (M) 0.01 k/uL (0); Myelocytes % 1 %; Neutrophils # (M) 0.23 k/uL (1.3-7.7); Neutrophils % (M) 19 %; Nucleated Red Blood Cells 0 /100 WBC (0-0); Total Cells Counted 100
[2022-01-06 22:36] LABS: Poikilocytosis (M) Present
[2022-01-07] MEDS ORDERED: LOSARTAN 50 MG TAB PO SCH (09:00)
[2022-01-07 11:27] LABS: BUN/Creat Ratio 13.25 Ratio (12.00-20.00)
--- NOTE | 2022-01-08 13:32 | CDI ---
Documentation Clarification Form Date: 01/08/2022 01:22:24 PM From: Polina Dickey RN CCDS Admit Date: 12/28/2021 12:34:00 AM Patient Name: Winnie Smith I Visit Number: [id number] Discharge Date: 01/06/2022 10:33:00 PM ATTENTION: The Clinical Documentation Specialists (CDI) and [facility] Coding Staff appreciate your assistance in clarifying documentation. Please respond to the clarification below the line at the bottom and electronically sign. The CDI & [facility] Coding staff will review the response and follow-up if needed. Please note: Queries are made part of the Legal Health Record. If you have any questions, please contact the author of this message via ITS. Dr. Tommy Erazo Sepsis is being documented in ID Consult 12/28 and in Medicine notes 01/06.. Additional clarification regarding the etiology/cause of the clinical indicators is requested. History/Risk Factors: 65-year-old female presents to the ED with high grade fevers and diarrhea which was non bloody. Medical History: Recently admitted for induction of chemotherapy 12/16- 12/24; DM, HTN and GERD. H&P, 12/28. Clinical Indicators: WBC: 12/27 0.2 Lactic acid: 12/27 1.2 Blood cultures: 12/27 21:45 No growth after 24 hours; 12/27 21: 40 Final gram- positive cocci in clusters. Final culture: Micrococcus species. Vitals signs: 12/27 B/P 117/65; HR 129; Temp 102.5F Oral; RR 20; SpO2 98% room air ID Consult, 12/28: 1patient presented to hospital with sepsis in this patient who did have a fever neutropenia in this patient recently completed her induction chemotherapy work- up so far negative with a chest x-ray was negative urine has been negative no significant tenderness to abdominal wall and a question of possible PICC line infection. ID Note, 01/03: Patient blood culture with micrococcus species questionably contamination repeat blood culture so far negative, vancomycin was discontinued 3patient has shown some clinical improvement as for his diarrhea is concerned stool cultures are pending continue cefepime Flagyl along with Questran as needed. Medicine Note, 01/06: Micrococcus positive blood culture most likely a contaminant, repeat blood culture negative. Acute myeloid leukemia with recent hospitalization for induction chemotherapy through PICC line which possible sepsis as source of infection from PICC. Treatment: ID Consult: See above Antibiotics:12/27 Cefepime IVPB x 1; 12/27 Vancomycin IVPB x 1; 12/28 Cefepime IVPB Q8HR; 12/28 Vancomycin IVPB Q12H IV Bolus: 12/27 0.9NS 2L bolus In your professional opinion, please clarify if these findings signify one of the following conditions: [ ] Sepsis due to PICC line ruled in [ ] Sepsis due to PICC line ruled out [ ] Sepsis POA due to (please specify) [ ] Sepsis ruled out [ ] Other, please specify [ ] Unable to determine SIRS Criteria: 2 or more of the following may indicate SIRS -Temperature < 96.8F (36C) or > 101.0F (38.3C) -Heart Rate > 90 bpm -Respiratory Rate > 20 breaths/min or PaCO2 < 32 mmHg -White Blood Cell Count > 12,000 or < 4,000 cells/mm3 or > 10% bands (Template Last Reviewed: March 2020) Sepsis positive blood cultures are secondary to contamination MTDD
--- NOTE | 2022-01-13 18:08 | P.PN ---
Subjective Progress Note Date: 01/06/22 Principal diagnosis: Febrile neutropenia Patient is a 66-year-old female with a past medical history significant for hypertension acute myeloid leukemia in this patient who recently did have induction chemotherapy completed on 12/24/2021 through the left arm PICC line presenting to the hospital for fever initial work-up negative except CT abdominal pelvis did show some jejunal wall thickening could be gastroenteritis. On today's evaluation that is 01/06/2022, patient continues to be afebrile the patient is breathing comfortably on room air, the patient denies chest pain shortness of breath or cough, the patient denies nausea vomiting no abdominal pain, the patient diarrhea has decreased in frequency and forming up, patient is feeling better wants to go home Objective - Vital Signs Vital signs: Vital Signs Temp 98.5 F 01/06/22 04:53 Pulse 86 01/06/22 04:53 Resp 16 01/06/22 04:53 BP 143/79 01/06/22 04:53 Pulse Ox 100 01/06/22 04:53 FiO2 Intake & Output 01/05/22 01/06/22 01/06/22 18:59 06:59 18:59 Weight 110.4 kg Other: Voiding Method Toilet Toilet Toilet # Voids 4 1 1 # Bowel Movements 1 - Exam GENERAL DESCRIPTION: Elderly female up in the chair, no distress. No tachypnea or accessory muscle of respiration use. LUNGS: Unlabored breathing. Clear to auscultation anteriorly. No wheeze or crackle. HEART: S1, S2, regular rate and rhythm. No loud murmur ABDOMEN: Soft, no tenderness , guarding or rigidity, no organomegaly EXTREMITIES: No edema of feet. - Labs CBC & Chem 7: 01/06/22 20:34 01/06/22 03:10 Labs: Abnormal Lab Results - Last 24 Hours (Table) 01/02/22 01/06/22 01/06/22 Range/Units 14:13 03:10 03:10 WBC 1.0 L* (3.8-10.6) k/uL RBC 2.60 L (3.80-5.40) m/uL Hgb 7.8 L (11.4-16.0) gm/dL Hct 22.4 L (34.0-46.0) % Plt Count 23 L D (150-450) k/uL Carbon Dioxide 21 L (22-30) mmol/L BUN 6 L (7-17) mg/dL Creatinine 0.37 L (0.52-1.04) mg/dL Glucose 124 H (74-99) mg/dL Calcium 7.6 L (8.4-10.2) mg/dL Total Protein 5.7 L (6.3-8.2) g/dL Albumin 3.0 L (3.5-5.0) g/dL Vitamin B1 19 L (38-122) ug/L Microbiology - Last 24 Hours (Table) 01/02/22 20:10 Stool Culture - Final Stool Assessment and Plan (1) Neutropenic fever Status: Acute Code(s): D70.9 - NEUTROPENIA, UNSPECIFIED; R50.81 - FEVER PRESENTING WITH CONDITIONS CLASSIFIED ELSEWHERE SNOMED Code(s): 043047549 Plan: 1patient presented to hospital with sepsis in this patient who did have a fever neutropenia in this patient recently completed her induction chemotherapy work- up so far negative with a chest x-ray was negative urine has been negative no significant tenderness to abdominal wall and a question of possible PICC line infection. 2Patient blood culture with micrococcus species questionably contamination repeat blood culture so far negative, vancomycin has been discontinued 3patient has shown some clinical improvement as for his diarrhea is concerned stool cultures are so far pending 4-patient will continue with current treatment of cefepime Flagyl, with a plan to finish therapy with oral antibiotics discussed with the oncologist Time with Patient: Less than 30
== END 2022-01-06 22:33 | disposition short-term general hospital (02) | DRG 871 ==
LOC: EC 20:41 → 5NMEDONC 12-28 00:34 → 2SICU 01-06 18:11
PROVIDERS: ADMIT Hospitalist; ATTEND Hospitalist
PROC: 30233R1 Transfusion of Nonautologous Platelets into Peripheral Vein, Percutaneous Approach (ICD-10-PCS; principal; 2021-12-27)
PROC: 6A551Z2 Pheresis of Platelets, Multiple (ICD-10-PCS; 2021-12-28)
PROC: 30233N1 Transfusion of Nonautologous Red Blood Cells into Peripheral Vein, Percutaneous Approach (ICD-10-PCS; 2021-12-29)
DX: A41.9 Sepsis, unspecified organism (principal); S06.4XAA Epidural hemorrhage with loss of consciousness status unknown, initial encounter; C92.00 Acute myeloblastic leukemia, not having achieved remission; T80.219A Unspecified infection due to central venous catheter, initial encounter; G81.94 Hemiplegia, unspecified affecting left nondominant side; C79.31 Secondary malignant neoplasm of brain; Z68.41 Body mass index [BMI] 40.0-44.9, adult; D61.818 Other pancytopenia; D70.9 Neutropenia, unspecified; E11.42 Type 2 diabetes mellitus with diabetic polyneuropathy; I10 Essential (primary) hypertension; E66.9 Obesity, unspecified; T45.1X5A Adverse effect of antineoplastic and immunosuppressive drugs, initial encounter; E83.42 Hypomagnesemia; K52.9 Noninfective gastroenteritis and colitis, unspecified; R50.81 Fever presenting with conditions classified elsewhere; K21.9 Gastro-esophageal reflux disease without esophagitis; Z20.822 Contact with and (suspected) exposure to COVID-19; R29.810 Facial weakness; S00.83XA Contusion of other part of head, initial encounter; H92.01 Otalgia, right ear; M79.89 Other specified soft tissue disorders; Y71.1 Therapeutic (nonsurgical) and rehabilitative cardiovascular devices associated with adverse incidents; W06.XXXA Fall from bed, initial encounter; Y92.230 Patient room in hospital as the place of occurrence of the external cause; Z87.11 Personal history of peptic ulcer disease; Z79.84 Long term (current) use of oral hypoglycemic drugs; Z79.899 Other long term (current) drug therapy; Z88.5 Allergy status to narcotic agent; Z79.82 Long term (current) use of aspirin
CPT/HCPCS: 36415; 70450; 70496; 70498; 71046; 74177; 80053; 80202; 81001; 82306; 82607; 83605; 83735; 84132; 84425; 85025; 85379; 85384; 85610; 85730; 86850; 86900; 86901; 86920; 87040; 87045; 87046; 87324; 87635; 87636; 93005; 96361; 96365; 96366; 96367; 96368; 96375; 99285

== ENCOUNTER → 2022-02-24 | Outpatient (CLI) | payer MEDICARE ==
--- NOTE | 2022-02-24 13:31 | FL ---
EXAMINATION TYPE: FL barium swallow w video DATE OF EXAM: 02/24/2022 CLINICAL HISTORY: 66-year-old female Z93.1, Z86.73. Patient with PEG tube for leukemia/previously shelby tilated .Dysphagia TECHNIQUE: Deglutition study is performed utilizing thin liquid barium, barium thick applesauce, and barium coated cracker. Total fluoroscopy time: 43 seconds. Total images: None. Real-time fluoroscopy support was provided to speech pathology. COMPARISON: None. FINDINGS: The oral and pharyngeal phases show satisfactory initiation and propagation with all modalities teste d. Normal mastication is seen with solid modalities tested. There is no evidence of penetration or aspiration with any modality tested. No significant pharyngeal residue was appreciated. IMPRESSION: Normal deglutition study. Please refer to speech therapist notes for further details if necessary.
== END | disposition home or self-care (01) ==
LOC: RADFLMAIN 11:17
PROVIDERS: ATTEND Family Medicine
DX: Z93.1 Gastrostomy status (principal); Z86.73 Personal history of transient ischemic attack (TIA), and cerebral infarction without residual deficits
CPT/HCPCS: 74230

== ENCOUNTER 2022-03-03 10:59 | Day surgery (SDC) | payer MEDICARE ==
[2022-03-02 12:43] VITALS: BMI 38.2
[2022-03-03] MEDS ORDERED: LIDOCAINE 1% (10MG/ML) FOR IV START INTRADERMA PRN (11:10)
[2022-03-03] MEDS ORDERED: LACTATED RINGERS 1,000 ML IV SCH (11:10)
[2022-03-03] MEDS ORDERED: ONDANSETRON 4 MG/2 ML VIAL IVP PRN (11:10)
[2022-03-03 11:50] VITALS: TEMP 97.3
[2022-03-03] MEDS ORDERED: PROPOFOL 10 MG/ML 20 ML VIAL IV ONE (12:25)
--- NOTE | 2022-03-03 12:50 | P.PCN ---
Date of Procedure: 03/03/22 Preoperative Diagnosis: Acute myeloid leukemia, status post induction. Bone marrow being done to evaluate response Postoperative Diagnosis: Same Procedure(s) Performed: Bone marrow aspiration biopsy Anesthesia: MAC Surgeon: Avi [employer] Front Desk Attendant #1: Stated None Estimated Blood Loss (ml): 2 Pathology: other Condition: stable Disposition: same day Indications for Procedure: Acute myeloid leukemia, status post induction chemotherapy. Bone marrow aspiration biopsy being performed to evaluate response Operative Findings: Adequate samples Description of Procedure: The procedure was discussed in detail with the patient in the office. She presented to the outpatient endoscopy suite where IV access and informed consent obtained. She was then placed in left lateral decubitus position. The area over both posterior iliac crest was cleaned and prepped with chlorhexidine and sterile draping. IV sedation was initiated. Local anesthesia was admitted to the right posterior iliac crest with lidocaine. A Jamshidi needle was then inserted and bone marrow aspirate and biopsy obtained. On withdrawal of the needle hemostasis was easily achieved. Blood loss was minimal and recovery from patient was satisfactory. He appeared to have tolerated the procedure well without any obvious, immediate complications.
[2022-03-03 12:59] LABS: Basophils % (A) 0 %; Eosinophils # (A) 0.1 k/uL (0-0.7); Eosinophils % (A) 2 %; HCT 36.6 % (34.0-46.0); Lymphocytes # (A) 0.7 k/uL (1.0-4.8); Lymphocytes % (A) 14 %; MCH 32.7 pg (25.0-35.0); Mean Platelet Volume 7.3; Monocytes # (A) 0.2 k/uL (0-1.0); Monocytes % (A) 4 %; Neutrophils # (A) 4.4 k/uL (1.3-7.7); Neutrophils % (A) 80 %; RDW 15.3 % (11.5-15.5); Reticulocyte % 0.9 % (0.5-2.0); WBC 5.5 k/uL (3.8-10.6)
[2022-03-03 13:11] LABS: HGB 12.4 gm/dL (11.4-16.0); MCV 96.2 fL (80.0-100.0); Platelet Count 127 k/uL (150-450)
[2022-03-03 13:14] VITALS: RESP 16
[2022-03-03 13:20] VITALS: BP 131/82; PULSE 79
== END 2022-03-03 13:44 | disposition home or self-care (01) ==
LOC: OR 10:59
PROVIDERS: ATTEND Internal Medicine Hematology & Oncology
DX: C92.00 Acute myeloblastic leukemia, not having achieved remission (principal); Z91.040 Latex allergy status; Z88.5 Allergy status to narcotic agent; Z71.3 Dietary counseling and surveillance; Z79.899 Other long term (current) drug therapy
CPT/HCPCS: 85025; 85045; 38222; J2704

== ENCOUNTER 2022-05-21 11:20 | Day surgery (SDC) | payer MEDICARE ==
[2022-05-21] MEDS ORDERED: LIDOCAINE 1% INJ 10MG/ML (5 ML VIAL-PF) SQ ONE (11:32)
--- NOTE | 2022-05-21 12:21 | IR ---
PICC LINE PLACEMENT: HISTORY: PICC line malfunction request for exchange for chemotherapy PROCEDURE: Fluoroscopic PICC line exchange over a guidewire exchange. COMPLICATIONS: None ANESTHESIA: 1. 1% Lidocaine locally. FINDINGS/TECHNIQUE: The procedure was explained to the patient. The risks, complications, benefits and alternatives were discussed and any questions were answered. Informed consent was obtained. The patient was placed supine on the fluoroscopic table and prepped and draped in the usual sterile fash ion. Pre-existing double-lumen PICC line was contrast and an 0.018 guidewire was placed through the c atheter. A 5-F. sheath was placed over the guidewire. The guidewire and dilator were removed and a 5 -F. Double lumen PICC line was placed through the sheath with the tip at the level of the SVC. The s blayne was removed, the catheter was flushed and sutured into position. The patient was stable throug hout the procedure and remained stable upon discharge from the Department of Radiology. All elements of the maximal barrier technique were utilized. FLUOROSCOPY TIME: [id number] IMPRESSION: Successful PICC double lumen line placement under ultrasound and fluoroscopic guidance.
== END 2022-05-21 13:20 | disposition home or self-care (01) ==
LOC: CATHCVL 11:20
PROVIDERS: ATTEND Radiology Diagnostic Radiology
DX: Z45.2 Encounter for adjustment and management of vascular access device (principal); T82.514A Breakdown (mechanical) of infusion catheter, initial encounter
CPT/HCPCS: 36573; C1751; C1769; J2001

== ENCOUNTER 2022-05-21 20:19 | Inpatient (IN) | payer MEDICARE ==
[2022-05-21 21:32] LABS: Appearance,Urine Clear (Clear); Bacteria,Urine Occasional /hpf; Bilirubin,Urine Negative (Negative); Blood,Urine Moderate (Negative); Color,Urine Yellow; Glucose,Urine (UA) Negative (Negative); Ketones,Urine Negative (Negative); Leukocyte Esterase,Urine Negative (Negative); Nitrite,Urine Negative (Negative); Protein,Urine Trace (Negative); RBC,Urine 18 /hpf (0-5); Specific Gravity,Urine 1.023 (1.001-1.035); Squamous Epithelial Cell,Urine 3 /hpf (0-4); WBC,Urine 1 /hpf (0-5)
[2022-05-21] MEDS ORDERED: IBUPROFEN 600 MG TAB PO STA (22:02)
[2022-05-21] MEDS ORDERED: SODIUM CHLORIDE 0.9% 1,000 ML IV STA (22:02)
--- NOTE | 2022-05-21 22:43 | ED ---
Fever HPI - General Chief Complaint: Fever Stated Complaint: Fever Time Seen by Provider: 05/21/22 20:35 Source: patient Mode of arrival: ambulatory Limitations: no limitations - History of Present Illness Initial Comments: 66-year-old female with past history of AML who presents to the emergency department reporting a fever. States that she had chemotherapy at [facility] in [place] last week. She was admitted Tuesday through Tuesday. Today she went to get laboratory studies completed. They were unable to take blood off of her PICC line. Her PICC line was replaced earlier today and she received a platelet transfusion. Went home and around 6 PM developed a fever. She did not take anything for her fever before coming into the emergency department. She denies any other complaints besides the fever. No headaches or visual changes. No neck pain. No chest pain or shortness of breath. No abdominal pain. No changes in bowel or bladder habits. No other alleviating, precipitating or modifying factors - Related Data Home Medications Medication Instructions Recorded Confirmed Lacosamide 200 mg PO BID 03/02/22 05/22/22 Magnesium Oxide [Mag-Ox] 400 mg PO DAILY 03/02/22 05/22/22 Pantoprazole [Protonix] 40 mg PO HS 03/02/22 05/22/22 Phenytoin Sodium Extended 100 mg PO TID 03/02/22 05/22/22 [Dilantin] Verapamil HCl [Verelan Pm] 100 mg PO HS 03/02/22 05/22/22 amantadine HCL [Amantadine] 100 mg PO BID 03/02/22 05/22/22 Acyclovir 400 mg PO BID 05/20/22 05/22/22 Docusate Sodium [Dok] 100 mg PO BID PRN 05/22/22 05/22/22 Losartan [Cozaar] 25 mg PO HS 05/22/22 05/22/22 levETIRAcetam [Keppra] 1,500 mg PO BID 05/22/22 05/22/22 Allergies Allergy/AdvReac Type Severity Reaction Status Date / Time latex Allergy Itching Verified 05/22/22 13:09 hydrocodone [From Vicodin] AdvReac Nausea & Verified 05/22/22 13:09 Vomiting & Diarrhea Review of Systems ROS Statement: Those systems with pertinent positive or pertinent negative responses have been documented in the HPI. ROS Other: All systems not noted in ROS Statement are negative. 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 at [facility]-PT HAD A STROKE, BRAIN BLEED AND SEIZURE FOLLOWING TREATMENT, neuropathy bilateral feet, heart palpitations, enlarged heart, benign lung nodules, gastric ulcer History of Any Multi-Drug Resistant Organisms: None Reported Past Surgical History: Section, Cholecystectomy, Hernia Repair, Orthopedic Surgery Additional Past Surgical History / Comment(s): 12/10/21 BMA, double lumen PICC, cholecystectomy/umbilical hernia repair, open repair umbilical hernia/partial omenectomy, surgery to remove uterine fibroids, L oophorectomy, R partial oophorectomy, surgery for nasal fracture, surgery to remove tailbone cysts, R shoulder surgery. Past Anesthesia/Blood Transfusion Reactions: Previous Problems w/ Anesthesia, Postoperative Nausea & Vomiting (PONV) Additional Past Anesthesia/Blood Transfusion Reaction / Comment(s): "very hard coming out of anesthesia" Past Psychological History: No Psychological Hx Reported Smoking Status: Never smoker Past Alcohol Use History: None Reported Past Drug Use History: None Reported - Past Family History Father Family Medical History: Congestive Heart Failure (CHF) Additional Family Medical History / Comment(s): at age 83, possibly from heart issues- unsure. Mother Family Medical History: CVA/TIA, Deep Vein Thrombosis (DVT) Additional Family Medical History / Comment(s): deseased at age 77 from cva General Exam Limitations: no limitations General appearance: alert, in no apparent distress Head exam: Present: atraumatic, normocephalic, normal inspection Eye exam: Present: normal appearance, PERRL, EOMI. Absent: scleral icterus, conjunctival injection, periorbital swelling ENT exam: Present: normal exam, mucous membranes moist Neck exam: Present: normal inspection. Absent: tenderness, meningismus, lymphadenopathy Respiratory exam: Present: normal lung sounds bilaterally. Absent: respiratory distress, wheezes, rales, rhonchi, stridor Cardiovascular Exam: Present: regular rate, normal rhythm, normal heart sounds. Absent: systolic murmur, diastolic murmur, rubs, gallop, clicks GI/Abdominal exam: Present: soft, normal bowel sounds. Absent: distended, tenderness, guarding, rebound, rigid Extremities exam: Present: normal inspection, full ROM, normal capillary refill. Absent: tenderness, pedal edema, joint swelling, calf tenderness Back exam: Present: normal inspection Neurological exam: Present: alert, oriented X3, CN II-XII intact Psychiatric exam: Present: normal affect, normal mood Skin exam: Present: warm, dry, intact, normal color. Absent: rash Course Vital Signs 05/21/22 05/21/22 05/22/22 20:33 23:00 00:00 Temperature 102.8 F H 99.2 F Pulse Rate 105 H 96 87 Respiratory 18 20 16 Rate Blood Pressure 157/91 142/79 142/71 O2 Sat by Pulse 100 98 99 Oximetry Medical Decision Making - Medical Decision Making Was pt. sent in by a medical professional or institution (, [employer], MEAT SERVICE TEAM MEMBER, urgent care, hospital, or skilled nursing...) When possible be specific @ -No Did you speak to anyone other than the patient for history (EMS, parent, family, police, friend...)? What history was obtained from this source @ -No Did you review nursing and triage notes (agree or disagree)? Why? @ -I reviewed and agree with nursing and triage notes Were old charts reviewed (outside hosp., previous admission, EMS record, old EKG, old radiological studies, urgent care reports/EKG's, skilled nursing records)? Report findings @ -No old charts were reviewed Differential Diagnosis (chest pain, altered mental status, abdominal pain women, abdominal pain men, vaginal bleeding, weakness, fever, dyspnea, syncope, headache, dizziness, GI bleed, back pain, seizure, CVA, palpatations, mental health, musculoskeletal)? @ -sepsis, uti, pneumonia, neutropenic fever EKG interpreted by me (3pts min.). @ -yes X-rays interpreted by me (1pt min.). @ -yes CT interpreted by me (1pt min.). @ -None done U/S interpreted by me (1pt. min.). @ -None done What testing was considered but not performed or refused? (CT, X-rays, U/S, labs)? Why? @ -None What meds were considered but not given or refused? Why? @ -None Did you discuss the management of the patient with other professionals (professionals i.e. Dr., PA, MEAT SERVICE TEAM MEMBER, lab, RT, psych nurse, social studies teacher, criminal lawyer, teacher, law enforcement officer, director of casework department)? Give summary @ -Dr. yañez who will admit the patient Was smoking cessation discussed for >3mins.? @ -No Was critical care preformed (if so, how long)? @ -No Were there social determinants of health that impacted care today? How? (H omelessness, low income, unemployed, alcoholism, drug addiction, transportation, low edu. Level, literacy, decrease access to med. care, nursing home, rehab)? @ -No Was there de-escalation of care discussed even if they declined (Discuss DNR or withdrawal of care, Hospice)? DNR status @ -No What co-morbidities impacted this encounter? (DM, HTN, Smoking, COPD, CAD, Cancer, CVA, ARF, Chemo, Hep., AIDS, mental health diagnosis, sleep apnea, morbid obesity)? @ -AML Was patient admitted / discharged? Hospital course, mention meds given and route, prescriptions, significant lab abnormalities, going to OR and other pertinent info. @ -Upon arrival the patient is placed into room 22. Thorough history and physical exam is performed. Patient has no symptoms other than fever. Laboratory studies are conducted and reviewed. White count 0.2. Platelets 10. Urine has occasional bacteria. She is covered with cefepime and Vanco after blood cultures are obtained. Viral swabs are negative. Chest x-ray negative. Results are discussed with the patient. Needs to be admitted for neutropenic fever. Spoke with Dr. yañez who agreed to admit the patient Undiagnosed new problem with uncertain prognosis? @ -Yes Drug Therapy requiring intensive monitoring for toxicity (Heparin, Nitro, Insulin, Cardizem)? @ -No Were any procedures done? @ -No Diagnosis/symptom? @ -acute neutropenic fever, aml on chemo Acute, or Chronic, or Acute on Chronic? @ -acute Uncomplicated (without systemic symptoms) or Complicated (systemic symptoms)? @ -complicated Side effects of treatment? @ -No Exacerbation, Progression, or Severe Exacerbation? @ -no Poses a threat to life or bodily function? How? (Chest pain, [place], VA, pneumonia, PE, COPD, DKA, ARF, appy, cholecystitis, CVA, Diverticulitis, Homicidal, Suicidal, threat to staff... and all critical care pts) @ -yes - Lab Data Result diagrams: 05/26/22 05:58 05/26/22 05:58 Lab Results 05/21/22 05/21/22 05/21/22 Range/Units 20:45 22:51 22:51 WBC 0.2 L* (3.8-10.6) k/uL RBC 3.64 L (3.80-5.40) m/uL Hgb 11.3 L (11.4-16.0) gm/dL Hct 32.3 L (34.0-46.0) % MCV 88.7 (80.0-100.0) fL MCH 31.0 (25.0-35.0) pg MCHC 35.0 (31.0-37.0) g/dL RDW 12.4 (11.5-15.5) % Plt Count 10 L* (150-450) k/uL MPV 7.4 Neutrophils # ME[employer]ICE TEAM MEMBER Differential Comment Manual Slide Review Performed PT (9.0-12.0) sec INR (<1.2) APTT (22.0-30.0) sec Sodium 137 (137-145) mmol/L Potassium 4.4 (3.5-5.1) mmol/L Chloride 103 (98-107) mmol/L Carbon Dioxide 25 (22-30) mmol/L Anion Gap 9 mmol/L BUN 15 (7-17) mg/dL Creatinine 0.42 L (0.52-1.04) mg/dL Est GFR (CKD-EPI)AfAm >90 (>60 ml/min/1.73 sqM) Est GFR (CKD-EPI)NonAf >90 (>60 ml/min/1.73 sqM) Glucose 164 H (74-99) mg/dL Lactic Ac Sepsis Rflx Plasma Lactic Acid [place] (0.7-2.0) mmol/L Calcium 9.1 (8.4-10.2) mg/dL Magnesium 1.7 (1.6-2.3) mg/dL Total Bilirubin 0.7 (0.2-1.3) mg/dL AST 33 (14-36) U/L ALT 47 H (4-34) U/L Alkaline Phosphatase 151 H (38-126) U/L Troponin I (0.000-0.034) ng/mL Total Protein 7.9 (6.3-8.2) g/dL Albumin 4.5 (3.5-5.0) g/dL Procalcitonin (0.02-0.09) ng/mL Urine Color Yellow Urine Appearance Clear (Clear) Urine pH 7.0 (5.0-8.0) Ur Specific [place] 1.023 (1.001-1.035) Urine Protein Trace H (Negative) Urine Glucose (UA) Negative (Negative) Urine Ketones Negative (Negative) Urine Blood Moderate H (Negative) Urine Nitrite Negative (Negative) Urine Bilirubin Negative (Negative) Urine Urobilinogen 2.0 (<2.0) mg/dL Ur Leukocyte Esterase Negative (Negative) Urine RBC 18 H (0-5) /hpf Urine WBC 1 (0-5) /hpf Ur Squamous Epith Cells 3 (0-4) /hpf Urine Bacteria Occasional H (None) /hpf Influenza Type A (PCR) (Not Detectd) Influenza Type B (PCR) (Not Detectd) RSV (PCR) (Not Detectd) SARS-CoV-2 (PCR) (Not Detectd) 05/21/22 05/21/22 05/21/22 Range/Units 22:51 22:51 22:51 WBC (3.8-10.6) k/uL RBC (3.80-5.40) m/uL Hgb (11.4-16.0) gm/dL Hct (34.0-46.0) % MCV (80.0-100.0) fL MCH (25.0-35.0) pg MCHC (31.0-37.0) g/dL RDW (11.5-15.5) % Plt Count (150-450) k/uL MPV Neutrophils # Differential Comment Manual Slide Review PT 10.3 (9.0-12.0) sec INR 1.0 (<1.2) APTT 21.8 L (22.0-30.0) sec Sodium (137-145) mmol/L Potassium (3.5-5.1) mmol/L Chloride (98-107) mmol/L Carbon Dioxide (22-30) mmol/L Anion Gap mmol/L BUN (7-17) mg/dL Creatinine (0.52-1.04) mg/dL Est GFR (CKD-EPI)AfAm (>60 ml/min/1.73 sqM) Est GFR (CKD-EPI)NonAf (>60 ml/min/1.73 sqM) Glucose (74-99) mg/dL Lactic Ac Sepsis Rflx Plasma Lactic Acid [place] 2.4 H* (0.7-2.0) mmol/L Calcium (8.4-10.2) mg/dL Magnesium (1.6-2.3) mg/dL Total Bilirubin (0.2-1.3) mg/dL AST (14-36) U/L ALT (4-34) U/L Alkaline Phosphatase (38-126) U/L Troponin I (0.000-0.034) ng/mL Total Protein (6.3-8.2) g/dL Albumin (3.5-5.0) g/dL Procalcitonin (0.02-0.09) ng/mL Urine Color Urine Appearance (Clear) Urine pH (5.0-8.0) Ur Specific [place] (1.001-1.035) Urine Protein (Negative) Urine Glucose (UA) (Negative) Urine Ketones (Negative) Urine Blood (Negative) Urine Nitrite (Negative) Urine Bilirubin (Negative) Urine Urobilinogen (<2.0) mg/dL Ur Leukocyte Esterase (Negative) Urine RBC (0-5) /hpf Urine WBC (0-5) /hpf Ur Squamous Epith Cells (0-4) /hpf Urine Bacteria (None) /hpf Influenza Type A (PCR) Not Detected (Not Detectd) Influenza Type B (PCR) Not Detected (Not Detectd) RSV (PCR) Not Detected (Not Detectd) SARS-CoV-2 (PCR) Not Detected (Not Detectd) 05/21/22 05/21/22 05/21/22 Range/Units 22:51 22:51 23:44 WBC (3.8-10.6) k/uL RBC (3.80-5.40) m/uL Hgb (11.4-16.0) gm/dL Hct (34.0-46.0) % MCV (80.0-100.0) fL MCH (25.0-35.0) pg MCHC (31.0-37.0) g/dL RDW (11.5-15.5) % Plt Count (150-450) k/uL MPV Neutrophils # Differential Comment Manual Slide Review PT (9.0-12.0) sec INR (<1.2) APTT (22.0-30.0) sec Sodium (137-145) mmol/L Potassium (3.5-5.1) mmol/L Chloride (98-107) mmol/L Carbon Dioxide (22-30) mmol/L Anion Gap mmol/L BUN (7-17) mg/dL Creatinine (0.52-1.04) mg/dL Est GFR (CKD-EPI)AfAm (>60 ml/min/1.73 sqM) Est GFR (CKD-EPI)NonAf (>60 ml/min/1.73 sqM) Glucose (74-99) mg/dL Lactic Ac Sepsis Rflx Y Plasma Lactic Acid [place] (0.7-2.0) mmol/L Calcium (8.4-10.2) mg/dL Magnesium (1.6-2.3) mg/dL Total Bilirubin (0.2-1.3) mg/dL AST (14-36) U/L ALT (4-34) U/L Alkaline Phosphatase (38-126) U/L Troponin I <0.012 (0.000-0.034) ng/mL Total Protein (6.3-8.2) g/dL Albumin (3.5-5.0) g/dL Procalcitonin 0.10 H (0.02-0.09) ng/mL Urine Color Urine Appearance (Clear) Urine pH (5.0-8.0) Ur Specific [place] (1.001-1.035) Urine Protein (Negative) Urine Glucose (UA) (Negative) Urine Ketones (Negative) Urine Blood (Negative) Urine Nitrite (Negative) Urine Bilirubin (Negative) Urine Urobilinogen (<2.0) mg/dL Ur Leukocyte Esterase (Negative) Urine RBC (0-5) /hpf Urine WBC (0-5) /hpf Ur Squamous Epith Cells (0-4) /hpf Urine Bacteria (None) /hpf Influenza Type A (PCR) (Not Detectd) Influenza Type B (PCR) (Not Detectd) RSV (PCR) (Not Detectd) SARS-CoV-2 (PCR) (Not Detectd) - EKG Data EKG Comments: EKG demonstrates sinus rhythm with a rate of 93. HI interval 178. QRS 94. QTC is 367. No acute ST segment elevations or depressions Disposition Clinical Impression: Neutropenic fever, Acute myeloid leukemia Disposition: ADMITTED IP TO THIS HOSP Condition: Serious Is patient prescribed a controlled substance at d/c from ED?: No Time of Disposition: 23:45 Decision to Admit Reason: Admit from EC Decision Date: 05/21/22 Decision Time: 23:45
[2022-05-21 23:24] LABS: HCT 32.3 % (34.0-46.0); HGB 11.3 gm/dL (11.4-16.0); MCV 88.7 fL (80.0-100.0); Mean Platelet Volume 7.4; RBC 3.64 m/uL (3.80-5.40); RDW 12.4 % (11.5-15.5)
[2022-05-21 23:30] LABS: ALT 47 U/L (4-34); AST 33 U/L (14-36); African American GFR (CKD) >90 (>60 ml/min/1.73 sqM); Albumin 4.5 g/dL (3.5-5.0); Alkaline Phosphatase 151 U/L (38-126); Anion Gap 9 mmol/L; Blood Urea Nitrogen 15 mg/dL (7-17); Calcium 9.1 mg/dL (8.4-10.2); Carbon Dioxide 25 mmol/L (22-30); Chloride 103 mmol/L (98-107); Glucose 164 mg/dL (74-99); Magnesium 1.7 mg/dL (1.6-2.3); Non-African American GFR(CKD) >90 (>60 ml/min/1.73 sqM); Potassium 4.4 mmol/L (3.5-5.1); Sodium 137 mmol/L (137-145); Total Bilirubin 0.7 mg/dL (0.2-1.3); Total Protein 7.9 g/dL (6.3-8.2)
[2022-05-21 23:35] LABS: Prothrombin Time 10.3 sec (9.0-12.0)
[2022-05-21 23:36] LABS: Partial Thromboplastin Time 21.8 sec (22.0-30.0)
--- NOTE | 2022-05-21 23:40 | XR ---
EXAMINATION TYPE: XR chest 2V DATE OF EXAM: 05/21/2022 11:18 PM COMPARISON: Chest radiographs from 12/27/2021 TECHNIQUE: XR chest 2V Frontal and lateral views of the chest. CLINICAL INDICATION:Female, 66 years old with history of fever, on chemo; FINDINGS: Lungs/Pleura: Elevated right diaphragm, similar prior. There is no evidence of pleural effusion, foca l consolidation, or pneumothorax. Pulmonary vascularity: Unremarkable. Heart/mediastinum: Cardiomediastinal silhouette is unremarkable. Musculoskeletal: Degenerative changes of the shoulder joints. Left PICC with tip at the confluence of the brachiocephalic vein and superior vena cava. IMPRESSION: No acute cardiopulmonary disease/process. No significant change from prior. [facility], 05/21/2022 11:18 PM, [id number], [id number], XR chest 2V [facility], 05/21/2022 11:37 PM, [id number], [id number], XR chest 2V
[2022-05-21 23:45] LABS: Platelet Count 10 k/uL (150-450)
[2022-05-21] MEDS ORDERED: NALOXONE 0.4 MG/ML 1 ML VIAL IV PRN (23:45)
[2022-05-21 23:46] LABS: WBC 0.2 k/uL (3.8-10.6)
[2022-05-21] MEDS ORDERED: VANCOMYCIN IV PER PHARMACY 1 EACH MISC MISCELLANE PRN (23:48)
[2022-05-22] MEDS ORDERED: IBUPROFEN 600 MG TAB PO PRN (00:13)
[2022-05-22] MEDS: CEFEPIME 2 GM in SODIUM CHLORIDE 0.9% 100 ML IVPB SCH ×4 (00:48→23:37)
[2022-05-22] MEDS: SODIUM CHLORIDE 0.9% 1,000 ML IV SCH ×4 (00:50→21:02)
[2022-05-22] MEDS ORDERED: VANCOMYCIN 2,250 MG in SODIUM CHLORIDE 0.9% 500 ML 500 ML IVPB ONE (01:00)
[2022-05-22] MEDS: ACETAMINOPHEN TAB 325 MG TAB PO PRN ×2 (03:13→21:01)
[2022-05-22 04:04] LABS: HCT 30.8 % (34.0-46.0); HGB 10.8 gm/dL (11.4-16.0); MCH 31.8 pg (25.0-35.0); MCHC 35.1 g/dL (31.0-37.0); MCV 90.5 fL (80.0-100.0); Mean Platelet Volume 6.8; RDW 12.7 % (11.5-15.5)
[2022-05-22 04:07] LABS: WBC 0.1 k/uL (3.8-10.6)
[2022-05-22 04:15] LABS: Platelet Count 5 k/uL (150-450)
[2022-05-22 04:34] LABS: African American GFR (CKD) >90 (>60 ml/min/1.73 sqM); Anion Gap 12 mmol/L; Blood Urea Nitrogen 14 mg/dL (7-17); Calcium 8.3 mg/dL (8.4-10.2); Carbon Dioxide 21 mmol/L (22-30); Chloride 103 mmol/L (98-107); Glucose 120 mg/dL (74-99); Non-African American GFR(CKD) >90 (>60 ml/min/1.73 sqM); Potassium 3.8 mmol/L (3.5-5.1); Sodium 136 mmol/L (137-145)
[2022-05-22] MEDS ORDERED: SODIUM CHLORIDE 0.9% 500 ML 500 ML IV ONE ×2 (04:44→05:12)
[2022-05-22] MEDS ORDERED: SODIUM CHLORIDE 0.9% 1,000 ML IV ONE (06:39)
--- NOTE | 2022-05-22 06:48 | CT ---
EXAMINATION TYPE: CT brain cspine wo con, CT facial bones wo con CT DLP: 1914 mGycm, Automated exposure control for dose reduction was used. DATE OF EXAM: 05/22/2022 5:01 AM COMPARISON: CT brain 01/06/2022. CLINICAL INDICATION:Female, 66 years old with history of fall; plt 5; TECHNIQUE: Brain: Multiple axial CT images of the brain were obtained without IV contrast. Cspine: Axial CT images from the skull base to the inferior aspect of T2 we obtained without intraven ous contrast. Coronal and sagittal reformatted images were also reviewed. Facial bones: Multiple unenhanced axial CT images were obtained of the facial bones soft tissue and b one windows. Coronal, axial and sagittal reformatted images were also provided in soft tissue and gabriella ne windows and submitted for interpretation. FINDINGS: Brain: Extra-axial spaces: No abnormal extra-axial fluid collections. Ventricular system: Within normal limits Cerebral parenchyma: No acute intraparenchymal hemorrhage or mass effect. The ames-white junction is well differentiated. Scattered hypoattenuating areas are seen within the white matter. Cerebellum: Unremarkable. Mass effect: No evidence of midline shift. Intracranial vasculature: Atherosclerotic calcifications of the intracranial vessels. Soft tissues: Normal. Calvarium/osseous structures: No depressed skull fracture. Mastoid air cells: Clear. Visualized orbits: Orbital contents are intact. Cervical spine: Fracture: None. Osseous structures: Multilevel degenerative disc disease changes with endplate spurring and disc oste ophyte complex's. Vertebral alignment: Mild retrolisthesis of C3 on C4, likely degenerative. Spinal canal/Neural Foramina: Disc osteophyte complexes at C5-C6 and C7-T1 with at least mild spinal canal stenosis. Facet joint uncovertebral joint arthropathy scattered throughout the cervical spine w ith varying degrees of neural foraminal stenosis. Neck soft tissues: Prevertebral soft tissues are within normal limits. Other: The airway is patent. The lung apices are clear. Facial bones: Dental amalgam increased streak artifact which limits evaluation. There is no evidence of acute fracture, subluxation, or dislocation. Remote left nasal bone fracture. Soft tissue hematoma anterior to the maxilla. Nasal septal deviation to the left. The orbital conten ts are unremarkable. The temporal-mandibular joints appear symmetric. Mucosal thickening of the bilat eral maxillary sinuses and right sphenoid sinus. Mild mucosal thickening of the right frontal and lef t ethmoid sinuses. Partial opacification of the left nasal cavity and nasopharynx. IMPRESSION: 1. No acute intracranial process. 2. Nonspecific white matter changes, likely secondary to chronic small vessel ischemic disease. 3. No evidence of cervical spine fracture. 4. Mild multilevel degenerative disc disease. 5. No acute facial bone fracture. 6. Soft tissue hematoma anterior to the maxilla with partial opacification of the left nasal cavity and nasopharynx due to blood products and/or secretions.
[2022-05-22] MEDS ORDERED: OXYMETAZOLINE 0.05% NASL SPRAY 1 SPRAY BOTTLE NASAL STA (08:10)
--- NOTE | 2022-05-22 08:23 | P.CNPUL ---
History of Present Illness Consult date: 05/22/22 Requesting physician: Barrett Celis Reason for consult: other Chief complaint: Leukemia, Sepsis. History of present illness: Pulmonary consult dated 05/22/2022. 66-year-old female with history of acute myelocytic leukemia. The patient has had recent chemotherapy, the last one being on May 14. The patient came into the hospital because of fever. He was found to be pancytopenic. She was a dmitted with possible neutropenic sepsis. I was called by the hospital service, because the patient apparently fell while getting out of bed, injuring her facial area, with significant swelling to the left, and epistaxis. Facial computed tomography scan and brain CT scans were negative. The patient was placed on vancomycin and cefepime. He receiving IV fluids. Despite that, her blood pressures are little soft. Initially we saw her, and she looked relatively stable and we thought she could stay on the floor but more recently, her blood pressure continues to drop despite 1-1/2 L of fluid. That reason she'll be transferred to the intensive care unit for further monitoring and management. She does have a history of type 2 diabetes mellitus, and she is obese. She is on room air. White count 0.1, hemoglobin 10.8, hematocrit 30.8, and platelet count 5000. Sodium 136, potassium 3.8, chlorides 103, CO2 21, anion gap 12, BUN 14, creatinine 0.42. Lactic acid was 5.7. Calcium 8.3. Ur ine had some blood in it. No obvious infection. Testing for influenza A and B, RSV, and coronavirus were all negative. Chest x-ray was normal. Review of Systems REVIEW OF SYSTEMS: CONSTITUTIONAL: Fever. NEUROLOGIC: [ Negative.] HEENT: Facial trauma, epistaxis. CARDIAC: Hypotension. PULMONARY: [Negative.] GI: [Negative.] : [Negative.] RHEUMATOLOGIC: [ Negative.] IMMUNOLOGIC: [ Negative.] ENDOCRINE: [Negative. ] DERMATOLOGIC: [Negative.] 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 at [facility]-PT HAD A STROKE, BRAIN BLEED AND SEIZURE FOLLOWING TREATMENT, neuropathy bilateral feet, heart palpitations, enlarged heart, benign lung nodules, gastric ulcer History of Any Multi-Drug Resistant Organisms: None Reported Past Surgical History: Section, Cholecystectomy, Hernia Repair, Orthopedic Surgery Additional Past Surgical History / Comment(s): 12/10/21 BMA, double lumen PICC, cholecystectomy/umbilical hernia repair, open repair umbilical hernia/partial omenectomy, surgery to remove uterine fibroids, L oophorectomy, R partial oophorectomy, surgery for nasal fracture, surgery to remove tailbone cysts, R shoulder surgery. Past Anesthesia/Blood Transfusion Reactions: Previous Problems w/ Anesthesia, Postoperative Nausea & Vomiting (PONV) Additional Past Anesthesia/Blood Transfusion Reaction / Comment(s): "very hard coming out of anesthesia" Past Psychological History: No Psychological Hx Reported Smoking Status: Never smoker Past Alcohol Use History: None Reported Past Drug Use History: None Reported - Past Family History Father Family Medical History: Congestive Heart Failure (CHF) Additional Family Medical History / Comment(s): at age 83, possibly from heart issues- unsure. Mother Family Medical History: CVA/TIA, Deep Vein Thrombosis (DVT) Additional Family Medical History / Comment(s): at age 77 from cva Medications and Allergies Home Medications Medication Instructions Recorded Confirmed Type Docusate Sodium [Dok] 100 mg PO BID 03/02/22 05/21/22 History Lacosamide 200 mg PO BID 03/02/22 05/21/22 History Losartan [Cozaar] 25 mg PO DAILY 03/02/22 05/21/22 History Magnesium Oxide [Mag-Ox] 400 mg PO BID 03/02/22 05/21/22 History Pantoprazole [Protonix] 40 mg PO DAILY 03/02/22 05/21/22 History Phenytoin Sodium Extended 100 mg PO TID 03/02/22 05/21/22 History [Dilantin] Verapamil HCl [Verelan Pm] 100 mg PO DAILY 03/02/22 05/21/22 History amantadine HCL [Amantadine] 100 mg PO BID 03/02/22 05/21/22 History levETIRAcetam 750 mg PO BID 03/02/22 05/21/22 History Acyclovir 200 mg PO BID 05/20/22 05/21/22 History Pantoprazole [Protonix] 20 mg PO DAILY 05/20/22 05/21/22 History Allergies Allergy/AdvReac Type Severity Reaction Status Date / Time latex Allergy Itching Verified 05/21/22 10:06 hydrocodone [From Vicodin] AdvReac Nausea & Verified 05/21/22 10:06 Vomiting & Diarrhea Physical Exam Osteopathic Statement: *. No significant issues noted on an osteopathic structural exam other than those noted in the History and Physical/Consult. Vitals: Vital Signs Temp Pulse Pulse Resp BP BP Pulse Ox 05/22/22 08:01 98.4 F 122 H 20 86/56 99 05/22/22 05:10 100.8 F H 129 H 19 93/52 95 05/22/22 04:20 102.6 F H 140 H 108/68 98 05/22/22 04:12 137 H 99/62 97 05/22/22 03:10 102.6 F H 133 H 05/22/22 02:25 100.4 F H 103 H 05/22/22 01:16 100.2 F H 115 H 16 117/69 98 05/22/22 00:00 99.2 F 87 16 142/71 99 05/21/22 23:00 96 20 142/79 98 05/21/22 20:33 102.8 F H 105 H 18 157/91 100 Intake and Output 05/21/22 05/22/22 05/22/22 22:59 06:59 14:59 Intake Total 0 Balance 0 Intake: Blood Product 0 Platelet Pheresis Pas 0 Psoralen Unit [id number] Other: Weight 108.862 kg 108.862 kg No acute distress, oriented 3. No respiratory distress. HEENT examination is grossly unremarkable. Epistaxis noted. Significant ecchymoses of the upper lip. Neck supple. Full range of motion. No adenopathy thyromegaly or neck vein distention. Cardiovascular examination reveals regular rhythm rate. S1-S2 normal. No S3 or S4. No discernible murmur noted. Heart rate 118 bpm. Lungs reveal clear breath sounds. Breath sounds are equal bilaterally. No adventitious lung sounds including wheezes rhonchi or crackles. Room air saturation is 97%. Abdomen soft bowel sounds are heard. No masses or tenderness. Extremities are intact. No cyanosis clubbing or edema. Skin is without rash or lesion. Neurologic examination is brief but nonfocal. Results - Laboratory Findings CBC and BMP: 05/22/22 03:26 05/22/22 03:26 PT/INR, D-dimer PT 10.3 sec (9.0-12.0) 05/21/22 22:51 INR 1.0 (<1.2) 05/21/22 22:51 Abnormal lab findings: Abnormal Labs 05/21/22 05/21/22 05/21/22 20:45 22:51 22:51 WBC 0.2 L* RBC 3.64 L Hgb 11.3 L Hct 32.3 L Plt Count 10 L* APTT Sodium Carbon Dioxide Creatinine 0.42 L Glucose 164 H Plasma Lactic Acid Almas Calcium ALT 47 H Alkaline Phosphatase 151 H Urine Protein Trace H Urine Blood Moderate H Urine RBC 18 H Urine Bacteria Occasional H Crossmatch 05/21/22 05/21/22 05/22/22 22:51 22:51 00:25 WBC RBC Hgb Hct Plt Count APTT 21.8 L Sodium Carbon Dioxide Creatinine Glucose Plasma Lactic Acid Almas 2.4 H* Calcium ALT Alkaline Phosphatase Urine Protein Urine Blood Urine RBC Urine Bacteria Crossmatch See Detail 05/22/22 05/22/22 05/22/22 03:26 03:26 03:26 WBC 0.1 L* RBC 3.40 L Hgb 10.8 L Hct 30.8 L Plt Count 5 L* APTT Sodium 136 L Carbon Dioxide 21 L Creatinine 0.42 L Glucose 120 H Plasma Lactic Acid Almas 5.7 H* Calcium 8.3 L ALT Alkaline Phosphatase Urine Protein Urine Blood Urine RBC Urine Bacteria Crossmatch - Diagnostic Findings Chest x-ray: image reviewed Assessment and Plan Assessment: Neutropenic fever, with possible sepsis, no clear-cut source, with hypotension. History of acute myelocytic leukemia, status post chemotherapy, 2, most recently on 05/14/2022. Pancytopenia. History of CVA. History of seizure disorder. History of neuropathy. Type 2 diabetes. History of gastric ulcer. Lifelong nonsmoker. Plan: Plan dated 05/22/2022. I did speak to the hospital service. We saw the patient and interviewed her. We examined her. Initially the patient appeared relatively stable and we are comfortable leaving her on the floor. More recently, despite fluids, the patient's blood pressure continues to drop, the patient be transferred to the intensive care unit for further monitoring and management. Labs, x-rays, medications are reviewed. The patient's on vancomycin and cefepime. Additional recommendations and suggestions are forthcoming. Time with Patient: Greater than 30
[2022-05-22 08:52] LABS: Glucose,Whole Blood 170 mg/dL (70-110)
[2022-05-22] MEDS ORDERED: DOCUSATE 100 MG CAP PO PRN (09:55)
[2022-05-22] MEDS: PHENYTOIN SODIUM EXTENDED 100 MG CAP PO SCH ×3 (10:36→21:02)
[2022-05-22] MEDS: LACOSAMIDE 50 MG TABLET PO SCH ×2 (11:00→21:01)
[2022-05-22] MEDS: Acetaminophen-Codeine 300-30mg TAB PO PRN ×2 (11:01→15:19)
--- NOTE | 2022-05-22 11:18 | P.GSCN ---
History of Present Illness Consult date: 05/22/22 Reason for Consult: Facial trauma, active posterior nosebleed left Requesting physician: Barrett E Sheet History of present illness: This is a 66-year-old white female who fell this morning sustaining facial trauma. She had a small laceration on her lip and no significant swelling along with a laceration on her nasal dorsum through small that she's has significant nasal swelling and tenderness and some black and blue signs around the eyelids. She's had persistent bleeding from the left side of her nose and Afrin nasal spray was ineffective. She has low platelet count of 5000 and she has pancytopenia with a very low white count of 0.8. This happened after chemotherapy she was admitted for evaluation and workup because of a fever. She had no loss of consciousness no denied any dizziness she just tripped and fell and sustained a facial injury with associated persistent left-sided nosebleed. Review of Systems - Constitutional Reports as per HPI Past Medical History Past Medical History: Blood Disorder, Cancer, CVA/TIA, Seizure Disorder Additional Past Medical History / Comment(s): Acute myeloid leukemia/induction chemo 12/16/21 at [facility]-PT HAD A STROKE, BRAIN BLEED AND SEIZURE FOLLOWING TREATMENT, neuropathy bilateral feet, heart palpitations, enlarged heart, benign lung nodules, gastric ulcer History of Any Multi-Drug Resistant Organisms: None Reported Past Surgical History: Section, Cholecystectomy, Hernia Repair, Orth opedic Surgery Additional Past Surgical History / Comment(s): 12/10/21 BMA, double lumen PICC, cholecystectomy/umbilical hernia repair, open repair umbilical hernia/partial omenectomy, surgery to remove uterine fibroids, L oophorectomy, R partial oophorectomy, surgery for nasal fracture, surgery to remove tailbone cysts, R shoulder surgery. Past Anesthesia/Blood Transfusion Reactions: Previous Problems w/ Anesthesia, Postoperative Nausea & Vomiting (PONV) Additional Past Anesthesia/Blood Transfusion Reaction / Comm: "very hard coming out of anesthesia" Past Psychological History: No Psychological Hx Reported Smoking Status: Never smoker Past Alcohol Use History: None Reported Past Drug Use History: None Reported - Past Family History Father Family Medical History: Congestive Heart Failure (CHF) Additional Family Medical History / Comment(s): at age 83, possibly from heart issues- unsure. Mother Family Medical History: CVA/TIA, Deep Vein Thrombosis (DVT) Additional Family Medical History / Comment(s): at age 77 from cva Medications and Allergies Home Medications Medication Instructions Recorded Confirmed Type Lacosamide 200 mg PO BID 03/02/22 05/22/22 History Losartan [Cozaar] 25 mg PO HS 03/02/22 05/22/22 History Magnesium Oxide [Mag-Ox] 400 mg PO DAILY 03/02/22 05/22/22 History Pantoprazole [Protonix] 40 mg PO HS 03/02/22 05/22/22 History Phenytoin Sodium Extended 100 mg PO TID 03/02/22 05/22/22 History [Dilantin] Verapamil HCl [Verelan Pm] 100 mg PO HS 03/02/22 05/22/22 History amantadine HCL [Amantadine] 100 mg PO BID 03/02/22 05/22/22 History levETIRAcetam 1,500 mg PO BID 03/02/22 05/22/22 History Acyclovir 400 mg PO BID 05/20/22 05/22/22 History Docusate Sodium [Dok] 100 mg PO BID PRN 05/22/22 05/22/22 History Allergies Allergy/AdvReac Type Severity Reaction Status Date / Time latex Allergy Itching Verified 05/21/22 10:06 hydrocodone [From Vicodin] AdvReac Nausea & Verified 05/21/22 10:06 Vomiting & Diarrhea Surgical - Exam Osteopathic Statement: *. No significant issues noted on an osteopathic structural exam other than those noted in the History and Physical/Consult. Vital Signs Temp Pulse Resp BP Pulse Ox 102.8 F H 105 H 18 157/91 100 05/21/22 20:33 05/21/22 20:33 05/21/22 20:33 05/21/22 20:33 05/21/22 20:33 - General well developed, well nourished, moderate pain, obese - Eyes Head is normocephalic the face shows swelling over the nose upper and lower lip with excessive swelling over the lower lip with a small laceration noted that his seal spontaneously measuring only a few millimeters. There was also has a few millimeter laceration with swelling and displacement. [place] signs are noted. Active bleeding coming from the left side of the nose. No tumors polyps or masses just blood. Oral examination shows teeth are intact no oral lesions are noted laceration to the upper lip is noted in point possibly from dental trauma. Upper lip is quite swollen. Neck shows no tumors or masses. PERRL, normal ocular movement, pale - ENT Other mucosa pale. Nasal swelling and lip swelling pronounced. normal pinna, normal nares - Neck no masses, no bruits, no lymphadectomy, no venous distension - Cardiovascular Rhythm: regular - Integumentary no rash - Neurologic normal coordination, normal sensation, combative - Musculoskeletal normal gait, normal posture - Psychiatric oriented to time, oriented to person, oriented to place, speech is normal, me haresh intact Results - Labs 05/22/22 03:26 05/22/22 03:26 Abnormal Lab Results - Last 24 Hours (Table) 05/21/22 05/21/22 05/21/22 Range/Units 20:45 22:51 22:51 WBC 0.2 L* (3.8-10.6) k/uL RBC 3.64 L (3.80-5.40) m/uL Hgb 11.3 L (11.4-16.0) gm/dL Hct 32.3 L (34.0-46.0) % Plt Count 10 L* (150-450) k/uL APTT (22.0-30.0) sec Sodium (137-145) mmol/L Carbon Dioxide (22-30) mmol/L Creatinine 0.42 L (0.52-1.04) mg/dL Glucose 164 H (74-99) mg/dL POC Glucose (mg/dL) (70-110) mg/dL Plasma Lactic Acid Almas (0.7-2.0) mmol/L Calcium (8.4-10.2) mg/dL ALT 47 H (4-34) U/L Alkaline Phosphatase 151 H (38-126) U/L Urine Protein Trace H (Negative) Urine Blood Moderate H (Negative) Urine RBC 18 H (0-5) /hpf Urine Bacteria Occasional H (None) /hpf Crossmatch 05/21/22 05/21/22 05/22/22 Range/Units 22:51 22:51 00:25 WBC (3.8-10.6) k/uL RBC (3.80-5.40) m/uL Hgb (11.4-16.0) gm/dL Hct (34.0-46.0) % Plt Count (150-450) k/uL APTT 21.8 L (22.0-30.0) sec Sodium (137-145) mmol/L Carbon Dioxide (22-30) mmol/L Creatinine (0.52-1.04) mg/dL Glucose (74-99) mg/dL POC Glucose (mg/dL) (70-110) mg/dL Plasma Lactic Acid Almas 2.4 H* (0.7-2.0) mmol/L Calcium (8.4-10.2) mg/dL ALT (4-34) U/L Alkaline Phosphatase (38-126) U/L Urine Protein (Negative) Urine Blood (Negative) Urine RBC (0-5) /hpf Urine Bacteria (None) /hpf Crossmatch See Detail 05/22/22 05/22/22 05/22/22 Range/Units 03:26 03:26 03:26 WBC 0.1 L* (3.8-10.6) k/uL RBC 3.40 L (3.80-5.40) m/uL Hgb 10.8 L (11.4-16.0) gm/dL Hct 30.8 L (34.0-46.0) % Plt Count 5 L* (150-450) k/uL APTT (22.0-30.0) sec Sodium 136 L (137-145) mmol/L Carbon Dioxide 21 L (22-30) mmol/L Creatinine 0.42 L (0.52-1.04) mg/dL Glucose 120 H (74-99) mg/dL POC Glucose (mg/dL) (70-110) mg/dL Plasma Lactic Acid Almas 5.7 H* (0.7-2.0) mmol/L Calcium 8.3 L (8.4-10.2) mg/dL ALT (4-34) U/L Alkaline Phosphatase (38-126) U/L Urine Protein (Negative) Urine Blood (Negative) Urine RBC (0-5) /hpf Urine Bacteria (None) /hpf Crossmatch 05/22/22 05/22/22 Range/Units 07:26 08:51 WBC (3.8-10.6) k/uL RBC (3.80-5.40) m/uL Hgb (11.4-16.0) gm/dL Hct (34.0-46.0) % Plt Count (150-450) k/uL APTT (22.0-30.0) sec Sodium (137-145) mmol/L Carbon Dioxide (22-30) mmol/L Creatinine (0.52-1.04) mg/dL Glucose (74-99) mg/dL POC Glucose (mg/dL) 170 H (70-110) mg/dL Plasma Lactic Acid Almas 2.1 H* (0.7-2.0) mmol/L Calcium (8.4-10.2) mg/dL ALT (4-34) U/L Alkaline Phosphatase (38-126) U/L Urine Protein (Negative) Urine Blood (Negative) Urine RBC (0-5) /hpf Urine Bacteria (None) /hpf Crossmatch Diabetes panel 05/21/22 05/22/22 Range/Units 22:51 03:26 Sodium 137 136 L (137-145) mmol/L Potassium 4.4 3.8 (3.5-5.1) mmol/L Chloride 103 103 (98-107) mmol/L Carbon Dioxide 25 21 L (22-30) mmol/L BUN 15 14 (7-17) mg/dL Creatinine 0.42 L 0.42 L (0.52-1.04) mg/dL Glucose 164 H 120 H (74-99) mg/dL Calcium 9.1 8.3 L (8.4-10.2) mg/dL AST 33 (14-36) U/L ALT 47 H (4-34) U/L Alkaline Phosphatase 151 H (38-126) U/L Total Protein 7.9 (6.3-8.2) g/dL Albumin 4.5 (3.5-5.0) g/dL Calcium panel 05/21/22 05/22/22 Range/Units 22:51 03:26 Calcium 9.1 8.3 L (8.4-10.2) mg/dL Albumin 4.5 (3.5-5.0) g/dL Pituitary panel 05/21/22 05/22/22 Range/Units 22:51 03:26 Sodium 137 136 L (137-145) mmol/L Potassium 4.4 3.8 (3.5-5.1) mmol/L Chloride 103 103 (98-107) mmol/L Carbon Dioxide 25 21 L (22-30) mmol/L BUN 15 14 (7-17) mg/dL Creatinine 0.42 L 0.42 L (0.52-1.04) mg/dL Glucose 164 H 120 H (74-99) mg/dL Calcium 9.1 8.3 L (8.4-10.2) mg/dL Adrenal panel 05/21/22 05/22/22 Range/Units 22:51 03:26 Sodium 137 136 L (137-145) mmol/L Potassium 4.4 3.8 (3.5-5.1) mmol/L Chloride 103 103 (98-107) mmol/L Carbon Dioxide 25 21 L (22-30) mmol/L BUN 15 14 (7-17) mg/dL Creatinine 0.42 L 0.42 L (0.52-1.04) mg/dL Glucose 164 H 120 H (74-99) mg/dL Calcium 9.1 8.3 L (8.4-10.2) mg/dL Total Bilirubin 0.7 (0.2-1.3) mg/dL AST 33 (14-36) U/L ALT 47 H (4-34) U/L Alkaline Phosphatase 151 H (38-126) U/L Total Protein 7.9 (6.3-8.2) g/dL Albumin 4.5 (3.5-5.0) g/dL Assessment and Plan (1) Facial trauma Current Visit: Yes Status: Acute Code(s): S09.93XA - UNSPECIFIED INJURY OF FACE, INITIAL ENCOUNTER SNOMED Code(s): 832434607 (2) Epistaxis due to trauma Current Visit: Yes Status: Acute Code(s): R04.0 - EPISTAXIS SNOMED Code(s): 942905326 (3) Open fracture of nasal bone Current Visit: Yes Status: Acute Code(s): S02.2XXB - FRACTURE OF NASAL BONES, INITIAL ENCOUNTER FOR OPEN FRACTURE SNOMED Code(s): 94949969 (4) Lip laceration Current Visit: Yes Status: Acute Code(s): S01.511A - LACERATION WITHOUT FOREIGN BODY OF LIP, INITIAL ENCOUNTER SNOMED Code(s): 439666774 (5) Deviated nasal septum Current Visit: Yes Status: Acute Code(s): J34.2 - DEVIATED NASAL SEPTUM SNOMED Code(s): 656931379 Plan: I inserted a posterior pack on the left side for the patient's persistent epistaxis. This worked well. We will keep her at head elevated with a pack in place for 72 hours and I anticipate we will remove the pack on Tuesday. Nursing staff is to monitor the balloon pressures. Call me if the bleeding should recur. Time with Patient: Greater than 30
--- NOTE | 2022-05-22 11:21 | P.PCN ---
Date of Procedure: 05/22/22 Preoperative Diagnosis: Left-sided epistaxis deviated nasal septum from nasal fracture Postoperative Diagnosis: Same Procedure(s) Performed: Placement of a left posterior nasal pack for epistaxis Implants: Rapid Rhino catheter inserted for posterior epistaxis Anesthesia: none Surgeon: Bruce Umaña Estimated Blood Loss (ml): 50 Pathology: none sent Condition: stable Disposition: ICU Indications for Procedure: Patient fell and broke her nose and sustained a nasal bone and septal fracture with left-sided epistaxis. Conservative treatment with Afrin nasal spray was ineffective. Therefore nasal pack was indicated. She was already anemic when the fall occurred and her platelet count was only 5000 because of her acute myeloblastic leukemia Operative Findings: Bleeding left side of the nose noted with deviated nasal septum Description of Procedure: Patient was placed in a semi-upright position the nasal tip was elevated and a rapid Rhino nasal catheter posterior epistaxis was placed into the patient's left nares we then located the pack before placement and we fill the nasal bones appropriately with the appropriate pressure. Bleeding stopped and the patient tolerated this well and follow-up will be in the office as needed but we will remove the packs if she still here by Tuesday. All questions were answered.
--- NOTE | 2022-05-22 13:17 | P.CONS ---
History of Present Illness - Reason for Consult Consult date: 05/22/22 AML - Chief Complaint Fever - History of Present Illness Ms. 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 She notes developing a fever at approximately 6 PM on 05/21/2022. She denies any cough, dyspnea, abdominal pain, diarrhea, hematuria, dysuria, chest pain, or palpitations. She did have a PICC line replacement on 05/21/2022 due to persistent line occlusion. Given the fever, she presented to the ED for additional management recommendations. She was febrile with a Tmax of 102.8 F on presentation. Blood pressure was noted to be initially elevated at 157/91 systolic, but decreased to 90s over 60s. She was tachycardic with heart rates ranging between the 100s to 120s. Respirations are within normal limits and is saturating well on room air. Labs noted WBC 0.1, hemoglobin 10.8, platelet count 5. BMP noted no acute metabolic abnormalities with creatinine 0.42. Lactic acid was elevated at 5.7. Chest x- ray noted no acute cardiopulmonary process. She was given 1 L bolus of normal saline and started on vancomycin and cefepime with blood cultures obtained and urinalysis ordered. She was admitted for additional management. Since admission, she has had persistently borderline low blood pressures with systolics ranging in the 80s. She has been given additional 2 L bolus of normal saline. She did have a mechanical fall since admission, where she fell face first while trying to stand up from the bed. This did result in significant ecchymosis under the eyes and the nasal bridge. Head/face CT noted no acute intracranial process or evidence of cervical spinal fracture or facial bone fracture. There was noted to be a soft tissue hematoma anterior to the maxilla with partial opacification of the left nasal cavity nasopharynx. She was given a unit of pheresed platelets for platelet count of 5 along with an ordered unit of packed red blood cells. Review of Systems 14 point review of systems was conducted with pertinent positives and negatives as noted per HPI. 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 at [facility]-PT HAD A STROKE, BRAIN BLEED AND SEIZURE FOLLOWING TREATMENT, neuropathy bilateral feet, heart palpitations, enlarged heart, benign lung nodules, gastric ulcer History of Any Multi-Drug Resistant Organisms: None Reported Past Surgical History: Section, Cholecystectomy, Hernia Repair, Orthopedic Surgery Additional Past Surgical History / Comment(s): 12/10/21 BMA, double lumen PICC, cholecystectomy/umbilical hernia repair, open repair umbilical hernia/partial omenectomy, surgery to remove uterine fibroids, L oophorectomy, R partial oophorectomy, surgery for nasal fracture, surgery to remove tailbone cysts, R shoulder surgery. Past Anesthesia/Blood Transfusion Reactions: Previous Problems w/ Anesthesia, Postoperative Nausea & Vomiting (PONV) Additional Past Anesthesia/Blood Transfusion Reaction / Comm: "very hard coming out of anesthesia" Past Psychological History: No Psychological Hx Reported Smoking Status: Never smoker Past Alcohol Use History: None Reported Past Drug Use History: None Reported - Past Family History Father Family Medical History: Congestive Heart Failure (CHF) Additional Family Medical History / Comment(s): at age 83, possibly from heart issues- unsure. Mother Family Medical History: CVA/TIA, Deep Vein Thrombosis (DVT) Additional Family Medical History / Comment(s): at age 77 from cva Medications and Allergies Home Medications Medication Instructions Recorded Confirmed Type Lacosamide 200 mg PO BID 03/02/22 05/22/22 History Losartan [Cozaar] 25 mg PO HS 03/02/22 05/22/22 History Magnesium Oxide [Mag-Ox] 400 mg PO DAILY 03/02/22 05/22/22 History Pantoprazole [Protonix] 40 mg PO HS 03/02/22 05/22/22 History Phenytoin Sodium Extended 100 mg PO TID 03/02/22 05/22/22 History [Dilantin] Verapamil HCl [Verelan Pm] 100 mg PO HS 03/02/22 05/22/22 History amantadine HCL [Amantadine] 100 mg PO BID 03/02/22 05/22/22 History levETIRAcetam 1,500 mg PO BID 03/02/22 05/22/22 History Acyclovir 400 mg PO BID 05/20/22 05/22/22 History Docusate Sodium [Dok] 100 mg PO BID PRN 05/22/22 05/22/22 History Allergies Allergy/AdvReac Type Severity Reaction Status Date / Time latex Allergy Itching Verified 05/21/22 10:06 hydrocodone [From Vicodin] AdvReac Nausea & Verified 05/21/22 10:06 Vomiting & Diarrhea Physical Exam Vitals: Vital Signs Temp Pulse Pulse Resp BP BP Pulse Ox 05/22/22 08:35 98 87/59 05/22/22 08:30 100 84/57 05/22/22 08:26 102 H 82/55 05/22/22 08:23 80/53 05/22/22 08:21 102 H 20 82/55 9 L 05/22/22 08:20 125 H 71/48 05/22/22 08:16 98.0 F 118 H 20 73/48 97 05/22/22 08:01 98.4 F 122 H 20 86/56 99 05/22/22 07:44 98.0 F 125 H 18 91/58 99 05/22/22 05:10 100.8 F H 129 H 19 93/52 95 05/22/22 04:20 102.6 F H 140 H 108/68 98 05/22/22 04:12 137 H 99/62 97 05/22/22 03:10 102.6 F H 133 H 05/22/22 02:25 100.4 F H 103 H 05/22/22 01:16 100.2 F H 115 H 16 117/69 98 05/22/22 00:00 99.2 F 87 16 142/71 99 05/21/22 23:00 96 20 142/79 98 05/21/22 20:33 102.8 F H 105 H 18 157/91 100 Intake and Output 05/21/22 05/22/22 05/22/22 22:59 06:59 14:59 Intake Total 0 Balance 0 Intake: Blood Product 0 Platelet Pheresis Pas 0 Psoralen Unit [id number] Other: Voiding Method External Catheter Weight 108.862 kg 108.862 kg - Constitutional Ecchymosis under the eyes and along the nasal bridge with nasal packing in the left nare - EENT Eyes: EOMI - Respiratory Respiratory: bilateral: CTA - Cardiovascular Rhythm: regular - Gastrointestinal General gastrointestinal: no distended, normal bowel sounds, soft, no tenderness - Neurologic Neurologic: CNII-XII intact Results CBC & Chem 7: 05/22/22 03:26 05/22/22 03:26 Labs: Abnormal Lab Results - Last 24 Hours (Table) 05/21/22 05/21/22 05/21/22 Range/Units 20:45 22:51 22:51 WBC 0.2 L* (3.8-10.6) k/uL RBC 3.64 L (3.80-5.40) m/uL Hgb 11.3 L (11.4-16.0) gm/dL Hct 32.3 L (34.0-46.0) % Plt Count 10 L* (150-450) k/uL APTT (22.0-30.0) sec Sodium (137-145) mmol/L Carbon Dioxide (22-30) mmol/L Creatinine 0.42 L (0.52-1.04) mg/dL Glucose 164 H (74-99) mg/dL POC Glucose (mg/dL) (70-110) mg/dL Plasma Lactic Acid Almas (0.7-2.0) mmol/L Calcium (8.4-10.2) mg/dL ALT 47 H (4-34) U/L Alkaline Phosphatase 151 H (38-126) U/L Urine Protein Trace H (Negative) Urine Blood Moderate H (Negative) Urine RBC 18 H (0-5) /hpf Urine Bacteria Occasional H (None) /hpf Crossmatch 05/21/22 05/21/22 05/22/22 Range/Units 22:51 22:51 00:25 WBC (3.8-10.6) k/uL RBC (3.80-5.40) m/uL Hgb (11.4-16.0) gm/dL Hct (34.0-46.0) % Plt Count (150-450) k/uL APTT 21.8 L (22.0-30.0) sec Sodium (137-145) mmol/L Carbon Dioxide (22-30) mmol/L Creatinine (0.52-1.04) mg/dL Glucose (74-99) mg/dL POC Glucose (mg/dL) (70-110) mg/dL Plasma Lactic Acid Almas 2.4 H* (0.7-2.0) mmol/L Calcium (8.4-10.2) mg/dL ALT (4-34) U/L Alkaline Phosphatase (38-126) U/L Urine Protein (Negative) Urine Blood (Negative) Urine RBC (0-5) /hpf Urine Bacteria (None) /hpf Crossmatch See Detail 05/22/22 05/22/22 05/22/22 Range/Units 03:26 03:26 03:26 WBC 0.1 L* (3.8-10.6) k/uL RBC 3.40 L (3.80-5.40) m/uL Hgb 10.8 L (11.4-16.0) gm/dL Hct 30.8 L (34.0-46.0) % Plt Count 5 L* (150-450) k/uL APTT (22.0-30.0) sec Sodium 136 L (137-145) mmol/L Carbon Dioxide 21 L (22-30) mmol/L Creatinine 0.42 L (0.52-1.04) mg/dL Glucose 120 H (74-99) mg/dL POC Glucose (mg/dL) (70-110) mg/dL Plasma Lactic Acid Almas 5.7 H* (0.7-2.0) mmol/L Calcium 8.3 L (8.4-10.2) mg/dL ALT (4-34) U/L Alkaline Phosphatase (38-126) U/L Urine Protein (Negative) Urine Blood (Negative) Urine RBC (0-5) /hpf Urine Bacteria (None) /hpf Crossmatch 05/22/22 05/22/22 Range/Units 07:26 08:51 WBC (3.8-10.6) k/uL RBC (3.80-5.40) m/uL Hgb (11.4-16.0) gm/dL Hct (34.0-46.0) % Plt Count (150-450) k/uL APTT (22.0-30.0) sec Sodium (137-145) mmol/L Carbon Dioxide (22-30) mmol/L Creatinine (0.52-1.04) mg/dL Glucose (74-99) mg/dL POC Glucose (mg/dL) 170 H (70-110) mg/dL Plasma Lactic Acid Almas 2.1 H* (0.7-2.0) mmol/L Calcium (8.4-10.2) mg/dL ALT (4-34) U/L Alkaline Phosphatase (38-126) U/L Urine Protein (Negative) Urine Blood (Negative) Urine RBC (0-5) /hpf Urine Bacteria (None) /hpf Crossmatch Abdominal x-ray: report reviewed, image reviewed CT Scan - head: report reviewed Assessment and Plan (1) Acute myeloid leukemia Current Visit: Yes Status: Chronic Priority: High Code(s): C92.00 - ACUTE MYELOBLASTIC LEUKEMIA, NOT HAVING ACHIEVED REMISSION SNOMED Code(s): 59106499 (2) Neutropenic fever Current Visit: Yes Status: Acute Code(s): D70.9 - NEUTROPENIA, UNSPECIFIED; R50.81 - FEVER PRESENTING WITH CONDITIONS CLASSIFIED ELSEWHERE SNOMED Code(s): 785142749 Plan: Neutropenic fever -She received HiDAC consolidative chemotherapy the week of 05/10/2022 to 05/14/2022 and subsequently received Neulasta on 05/15/2022 -She was noted to have fever on 05/21/2022 with no other localizing signs or symptoms -Chest x-ray reveals no acute process concerning for infection -Given recent HiDAC chemotherapy, she is at risk for bacterial translocation from the gut -Continue empiric vancomycin/cefepime pending infectious work-up with blood cultures and urinalysis Core binding factor AML -Received 7+3 induction chemotherapy in December 2021 -This was complicated by subdural and subarachnoid hemorrhage along with seizures -Repeat bone marrow biopsy in February 2022 revealed complete remission -She was evaluated at [facility] [place] and given her translocation (8;21) she was determined to be a candidate for consolidative chemotherapy as opposed to proceeding with allogenic stem cell transplant -She received cycle 1 of HiDAC on 05/10/2022 and was discharged on 05/14/2022. She received Neulasta on 05/15/2022 -She likely has pancytopenia that is chemotherapy-induced along with superimposed neutropenic fever of unclear etiology -Transfuse for hemoglobin less than 7 and/or platelet count less than 20,000 due to her history of intracranial hemorrhage
[2022-05-22] MEDS: VANCOMYCIN 2,250 MG in SODIUM CHLORIDE 0.9% 500 ML 500 ML IVPB SCH (13:40)
--- NOTE | 2022-05-22 13:44 | P.HPIM ---
History of Present Illness H&P Date: 05/22/22 History of present illness; patient is 66-year-old lady with past medical significant for acute myeloid leukemia who presented to the ER because of fevers. Patient normally receives chemotherapy at [facility] with her last session being last week. Patient had a PICC line placed yesterday and received platelet transfusion, following that she started noticing fevers. There was no complain of shortness of breath. No complaint of any cough. Because of fever she became concerned and came to the ER, initial workup in the ER showed white count of 0.2, hemoglobin 11.3, platelet count 10, sodium 137, potassium 4.4, chloride 103, BUN 15, creatinine 0.4, lactic acid level initially was 2.4. Initial chest x-ray was negative for acute cardiac pulmonary process. Patient was started on broad-spectrum antibiotic and was admitted to internal medicine team. While in the floor patient had a fall, receiving trauma to her face.CT face as as well as CT head and neck showed no acute intrarenal process, no evidence of cervical spine fracture, no acute facial bone fractures., Did show soft tissue hematoma anterior to the maxilla with partial opacification of the left nasal cavity. Patient was having episodes of hypotension, patient received adequate fluid resuscitation but was still hypotensive so was transferred to ICU. REVIEW OF SYSTEMS: CONSTITUTIONAL: As mentioned in HPI HEENT: No recent visual problems or hearing problems. Denied any sore throat. CARDIOVASCULAR: No chest pain, orthopnea, PND, no palpitations, no syncope. PULMONARY: No shortness of breath, no cough, no hemoptysis. Epistaxis GASTROINTESTINAL: No diarrhea, no nausea, no vomiting, no abdominal pain. NEUROLOGICAL: No headaches, no weakness, no numbness. HEMATOLOGICAL: Denies any bleeding or petechiae. GENITOURINARY: Denies any burning micturition, frequency, or urgency. MUSCULOSKELETAL/RHEUMATOLOGICAL: As mentioned in HPI ENDOCRINE: Denies any polyuria or polydipsia. The rest of the 14-point review of systems is negative. PHYSICAL EXAMINATION: GENERAL: The patient is alert and oriented x3, not in any acute distress. Well developed, well nourished. Facial trauma noticeable, nasal packing seen HEENT: Pupils are round and equally reacting to light. EOMI. nasal swelling and bruising seen, upper lip bruised CARDIOVASCULAR: S1 and S2 present. No murmurs, rubs, or gallops. PULMONARY: Chest is clear to auscultation, no wheezing or crackles. ABDOMEN: Soft, nontender, nondistended, normoactive bowel sounds. No palpable organomegaly. MUSCULOSKELETAL: No joint swelling or deformity. EXTREMITIES: No cyanosis, clubbing, or pedal edema. NEUROLOGICAL: Gross neurological examination did not reveal any focal deficits. SKIN: No rashes. Assessment and plan Neutropenic fever Sepsis Facial trauma Epistaxis History of acute myelocytic leukemia, status post chemotherapy, 2, most recently on 05/14/2022. Pancytopenia. History of CVA. History of seizure disorder. History of neuropathy. Type 2 diabetes. History of gastric ulcer. Lifelong nonsmoker. Plan; Monitor vital signs Monitor CBC -Transfuse for hemoglobin less than 7 and/or platelet count less than 20,000 due to her history of intracranial hemorrhage Follow-up on blood cultures Continue IV fluid Continue IV cefepime and vancomycin Consult infectious disease Consult hematology oncology ENT consulted for epistaxis, patient received posterior nasal packing ICU on board 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 at [facility]-PT HAD A STROKE, BRAIN BLEED AND SEIZURE FOLLOWING TREATMENT, neuropathy bilateral feet, heart palpitations, enlarged heart, benign lung nodules, gastric ulcer History of Any Multi-Drug Resistant Organisms: None Reported Past Surgical History: Section, Cholecystectomy, Hernia Repair, Orthopedic Surgery Additional Past Surgical History / Comment(s): 12/10/21 BMA, double lumen PICC, cholecystectomy/umbilical hernia repair, open repair umbilical hernia/partial omenectomy, surgery to remove uterine fibroids, L oophorectomy, R partial oophorectomy, surgery for nasal fracture, surgery to remove tailbone cysts, R shoulder surgery. Past Anesthesia/Blood Transfusion Reactions: Previous Problems w/ Anesthesia, Postoperative Nausea & Vomiting (PONV) Additional Past Anesthesia/Blood Transfusion Reaction / Comment(s): "very hard coming out of anesthesia" Past Psychological History: No Psychological Hx Reported Smoking Status: Never smoker Past Alcohol Use History: None Reported Past Drug Use History: None Reported - Past Family History Father Family Medical History: Congestive Heart Failure (CHF) Additional Family Medical History / Comment(s): at age 83, possibly from heart issues- unsure. Mother Family Medical History: CVA/TIA, Deep Vein Thrombosis (DVT) Additional Family Medical History / Comment(s): at age 77 from cva Medications and Allergies Home Medications Medication Instructions Recorded Confirmed Type Lacosamide 200 mg PO BID 03/02/22 05/22/22 History Magnesium Oxide [Mag-Ox] 400 mg PO DAILY 03/02/22 05/22/22 History Pantoprazole [Protonix] 40 mg PO HS 03/02/22 05/22/22 History Phenytoin Sodium Extended 100 mg PO TID 03/02/22 05/22/22 History [Dilantin] Verapamil HCl [Verelan Pm] 100 mg PO HS 03/02/22 05/22/22 History amantadine HCL [Amantadine] 100 mg PO BID 03/02/22 05/22/22 History Acyclovir 400 mg PO BID 05/20/22 05/22/22 History Docusate Sodium [Dok] 100 mg PO BID PRN 05/22/22 05/22/22 History Losartan [Cozaar] 25 mg PO HS 05/22/22 05/22/22 History levETIRAcetam [Keppra] 1,500 mg PO BID 05/22/22 05/22/22 History Allergies Allergy/AdvReac Type Severity Reaction Status Date / Time latex Allergy Itching Verified 05/22/22 13:09 hydrocodone [From Vicodin] AdvReac Nausea & Verified 05/22/22 13:09 Vomiting & Diarrhea Physical Exam Vitals: Vital Signs Temp Pulse Pulse Resp BP BP Pulse Ox 05/22/22 08:35 98 87/59 05/22/22 08:30 100 84/57 05/22/22 08:26 102 H 82/55 05/22/22 08:23 80/53 05/22/22 08:21 102 H 20 82/55 9 L 05/22/22 08:20 125 H 71/48 05/22/22 08:16 98.0 F 118 H 20 73/48 97 05/22/22 08:01 98.4 F 122 H 20 86/56 99 05/22/22 07:44 98.0 F 125 H 18 91/58 99 05/22/22 05:10 100.8 F H 129 H 19 93/52 95 05/22/22 04:20 102.6 F H 140 H 108/68 98 05/22/22 04:12 137 H 99/62 97 05/22/22 03:10 102.6 F H 133 H 05/22/22 02:25 100.4 F H 103 H 05/22/22 01:16 100.2 F H 115 H 16 117/69 98 05/22/22 00:00 99.2 F 87 16 142/71 99 05/21/22 23:00 96 20 142/79 98 05/21/22 20:33 102.8 F H 105 H 18 157/91 100 Intake and Output 05/21/22 05/22/22 05/22/22 22:59 06:59 14:59 Intake Total 0 Balance 0 Intake: Blood Product 0 Platelet Pheresis Pas 0 Psoralen Unit [id number] Other: Voiding Method External Catheter Weight 108.862 kg 108.862 kg Results CBC & Chem 7: 05/22/22 03:26 05/22/22 03:26 Labs: Abnormal Lab Results - Last 24 Hours (Table) 05/21/22 05/21/22 05/21/22 Range/Units 20:45 22:51 22:51 WBC 0.2 L* (3.8-10.6) k/uL RBC 3.64 L (3.80-5.40) m/uL Hgb 11.3 L (11.4-16.0) gm/dL Hct 32.3 L (34.0-46.0) % Plt Count 10 L* (150-450) k/uL APTT (22.0-30.0) sec Sodium (137-145) mmol/L Carbon Dioxide (22-30) mmol/L Creatinine 0.42 L (0.52-1.04) mg/dL Glucose 164 H (74-99) mg/dL POC Glucose (mg/dL) (70-110) mg/dL Plasma Lactic Acid Almas (0.7-2.0) mmol/L Calcium (8.4-10.2) mg/dL ALT 47 H (4-34) U/L Alkaline Phosphatase 151 H (38-126) U/L Urine Protein Trace H (Negative) Urine Blood Moderate H (Negative) Urine RBC 18 H (0-5) /hpf Urine Bacteria Occasional H (None) /hpf Crossmatch 05/21/22 05/21/22 05/22/22 Range/Units 22:51 22:51 00:25 WBC (3.8-10.6) k/uL RBC (3.80-5.40) m/uL Hgb (11.4-16.0) gm/dL Hct (34.0-46.0) % Plt Count (150-450) k/uL APTT 21.8 L (22.0-30.0) sec Sodium (137-145) mmol/L Carbon Dioxide (22-30) mmol/L Creatinine (0.52-1.04) mg/dL Glucose (74-99) mg/dL POC Glucose (mg/dL) (70-110) mg/dL Plasma Lactic Acid Almas 2.4 H* (0.7-2.0) mmol/L Calcium (8.4-10.2) mg/dL ALT (4-34) U/L Alkaline Phosphatase (38-126) U/L Urine Protein (Negative) Urine Blood (Negative) Urine RBC (0-5) /hpf Urine Bacteria (None) /hpf Crossmatch See Detail 05/22/22 05/22/22 05/22/22 Range/Units 03:26 03:26 03:26 WBC 0.1 L* (3.8-10.6) k/uL RBC 3.40 L (3.80-5.40) m/uL Hgb 10.8 L (11.4-16.0) gm/dL Hct 30.8 L (34.0-46.0) % Plt Count 5 L* (150-450) k/uL APTT (22.0-30.0) sec Sodium 136 L (137-145) mmol/L Carbon Dioxide 21 L (22-30) mmol/L Creatinine 0.42 L (0.52-1.04) mg/dL Glucose 120 H (74-99) mg/dL POC Glucose (mg/dL) (70-110) mg/dL Plasma Lactic Acid Almas 5.7 H* (0.7-2.0) mmol/L Calcium 8.3 L (8.4-10.2) mg/dL ALT (4-34) U/L Alkaline Phosphatase (38-126) U/L Urine Protein (Negative) Urine Blood (Negative) Urine RBC (0-5) /hpf Urine Bacteria (None) /hpf Crossmatch 05/22/22 05/22/22 Range/Units 07:26 08:51 WBC (3.8-10.6) k/uL RBC (3.80-5.40) m/uL Hgb (11.4-16.0) gm/dL Hct (34.0-46.0) % Plt Count (150-450) k/uL APTT (22.0-30.0) sec Sodium (137-145) mmol/L Carbon Dioxide (22-30) mmol/L Creatinine (0.52-1.04) mg/dL Glucose (74-99) mg/dL POC Glucose (mg/dL) 170 H (70-110) mg/dL Plasma Lactic Acid Almas 2.1 H* (0.7-2.0) mmol/L Calcium (8.4-10.2) mg/dL ALT (4-34) U/L Alkaline Phosphatase (38-126) U/L Urine Protein (Negative) Urine Blood (Negative) Urine RBC (0-5) /hpf Urine Bacteria (None) /hpf Crossmatch Thrombosis Risk Factor Assmnt - Choose All That Apply Any of the Below Risk Factors Present?: Yes Each Factor Represents 1 point: Obesity (BMI >25) Each Risk Factor Represents 2 Points: Age 61-74 years, Malignancy Other congenital or acquired thrombophilia - If yes, enter type in comment: Yes Thrombosis Risk Factor Assessment Total Risk Factor Score: 5 Thrombosis Risk Factor Assessment Level: High Risk
[2022-05-22] MEDS: PANTOPRAZOLE 40 MG TABLET PO SCH (21:01)
--- NOTE | 2022-05-22 21:24 | P.CONS ---
History of Present Illness - Reason for Consult Consult date: 05/22/22 - History of Present Illness Patient is a 66-year-old female past medical history significant for acute myeloid leukemia CVA TIA seizure disorder last chemo on May 14, 2022 patient presented to the hospital 05/22/2022 because of the fever symptoms started the day of presentation to the hospital patient denies any headache patient recently did have a PICC line replacement as the previous PICC line was not working and the patient presented that evening to the hospital with a fever patient on presentation the hospital did have a temperature of 102.8 F patient was not hypoxic or need for supplemental oxygen patient did have a white count of 0.2 platelet count of 10 patient did have normal kidney function did have elevated lactic acid ALT was mild elevated urine is negative influenza RSV COVID testing was negative patient did have a chest x-ray no acute cardiopulmonary process patient did have a fall while trying to get to the bathroom with injury to the face significant bruising to the upper lip and did have epistaxis patient did have a CT of the face no acute treatment process no acute cervical spine fracture or any facial bone fracture patient was evaluated by ENT for epistaxis patient currently on cefepime and vancomycin infectious disease was consulted for further management of antibiotic therapy 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 at [facility]-PT HAD A STROKE, BRAIN BLEED AND SEIZURE FOLLOWING T REATMENT, neuropathy bilateral feet, heart palpitations, enlarged heart, benign lung nodules, gastric ulcer History of Any Multi-Drug Resistant Organisms: None Reported Past Surgical History: Section, Cholecystectomy, Hernia Repair, Orthopedic Surgery Additional Past Surgical History / Comment(s): 12/10/21 BMA, double lumen PICC, cholecystectomy/umbilical hernia repair, open repair umbilical hernia/partial omenectomy, surgery to remove uterine fibroids, L oophorectomy, R partial oophorectomy, surgery for nasal fracture, surgery to remove tailbone cysts, R shoulder surgery. Past Anesthesia/Blood Transfusion Reactions: Previous Problems w/ Anesthesia, Postoperative Nausea & Vomiting (PONV) Additional Past Anesthesia/Blood Transfusion Reaction / Comm: "very hard coming out of anesthesia" Past Psychological History: No Psychological Hx Reported Smoking Status: Never smoker Past Alcohol Use History: None Reported Past Drug Use History: None Reported - Past Family History Father Family Medical History: Congestive Heart Failure (CHF) Additional Family Medical History / Comment(s): at age 83, possibly from heart issues- unsure. Mother Family Medical History: CVA/TIA, Deep Vein Thrombosis (DVT) Additional Family Medical History / Comment(s): at age 77 from cva Medications and Allergies Home Medications Medication Instructions Recorded Confirmed Type Lacosamide 200 mg PO BID 03/02/22 05/22/22 History Magnesium Oxide [Mag-Ox] 400 mg PO DAILY 03/02/22 05/22/22 History Pantoprazole [Protonix] 40 mg PO HS 03/02/22 05/22/22 History Phenytoin Sodium Extended 100 mg PO TID 03/02/22 05/22/22 History [Dilantin] Verapamil HCl [Verelan Pm] 100 mg PO HS 03/02/22 05/22/22 History amantadine HCL [Amantadine] 100 mg PO BID 03/02/22 05/22/22 History Acyclovir 400 mg PO BID 05/20/22 05/22/22 History Docusate Sodium [Dok] 100 mg PO BID PRN 05/22/22 05/22/22 History Losartan [Cozaar] 25 mg PO HS 05/22/22 05/22/22 History levETIRAcetam [Keppra] 1,500 mg PO BID 05/22/22 05/22/22 History Allergies Allergy/AdvReac Type Severity Reaction Status Date / Time latex Allergy Itching Verified 05/22/22 13:09 hydrocodone [From Vicodin] AdvReac Nausea & Verified 05/22/22 13:09 Vomiting & Diarrhea Physical Exam Vitals: Vital Signs Temp Pulse Pulse Resp BP BP Pulse Ox 05/22/22 12:00 97 F L 89 18 109/61 100 05/22/22 11:30 96 12 120/78 100 05/22/22 11:03 97 F L 101 H 20 108/61 100 05/22/22 11:00 97 18 103/63 99 05/22/22 10:30 105 H 17 106/63 100 05/22/22 10:00 104 H 25 H 99/61 99 05/22/22 09:55 97 F L 105 H 20 103/64 99 05/22/22 09:35 97.9 F 105 H 18 107/62 99 05/22/22 09:30 105 H 11 L 96/61 99 05/22/22 09:26 97.9 F 108 H 20 96/61 99 05/22/22 09:23 97.9 F 105 H 21 96/61 99 05/22/22 09:00 107 H 22 96/63 98 05/22/22 08:47 105 H 14 99 05/22/22 08:35 98 87/59 05/22/22 08:30 100 84/57 05/22/22 08:26 102 H 82/55 05/22/22 08:23 80/53 05/22/22 08:21 102 H 20 82/55 9 L 05/22/22 08:20 125 H 71/48 05/22/22 08:16 98.0 F 118 H 20 73/48 97 05/22/22 08:01 98.4 F 122 H 20 86/56 99 05/22/22 07:44 98.0 F 125 H 18 91/58 99 05/22/22 05:10 100.8 F H 129 H 19 93/52 95 05/22/22 04:20 102.6 F H 140 H 108/68 98 05/22/22 04:12 137 H 99/62 97 05/22/22 03:10 102.6 F H 133 H 05/22/22 02:25 100.4 F H 103 H 05/22/22 01:16 100.2 F H 115 H 16 117/69 98 05/22/22 00:00 99.2 F 87 16 142/71 99 05/21/22 23:00 96 20 142/79 98 05/21/22 20:33 102.8 F H 105 H 18 157/91 100 Intake and Output 05/21/22 05/22/22 05/22/22 22:59 06:59 14:59 Intake Total 3537 Output Total 900 Balance 2637 Intake: IV 2890 Sodium Chloride 0.9% 1, 2890 000 ml @ 130 mls/hr IV . Q7H42M [facility] Rx#:[id number] Blood Product 647 Platelet Pheresis Pas 337 Psoralen Unit [id number] Rc Irr As1 Unit 310 [id number] Output: Urine 900 Other: Voiding Method Indwelling Catheter Weight 108.862 kg 108.862 kg Results CBC & Chem 7: 05/23/22 05:07 05/23/22 05:07 Labs: Abnormal Lab Results - Last 24 Hours (Table) 05/21/22 05/21/22 05/21/22 Range/Units 20:45 22:51 22:51 WBC 0.2 L* (3.8-10.6) k/uL RBC 3.64 L (3.80-5.40) m/uL Hgb 11.3 L (11.4-16.0) gm/dL Hct 32.3 L (34.0-46.0) % Plt Count 10 L* (150-450) k/uL APTT (22.0-30.0) sec Sodium (137-145) mmol/L Carbon Dioxide (22-30) mmol/L Creatinine 0.42 L (0.52-1.04) mg/dL Glucose 164 H (74-99) mg/dL POC Glucose (mg/dL) (70-110) mg/dL Plasma Lactic Acid [place] (0.7-2.0) mmol/L Calcium (8.4-10.2) mg/dL ALT 47 H (4-34) U/L Alkaline Phosphatase 151 H (38-126) U/L Urine Protein Trace H (Negative) Urine Blood Moderate H (Negative) Urine RBC 18 H (0-5) /hpf Urine Bacteria Occasional H (None) /hpf Crossmatch 05/21/22 05/21/22 05/22/22 Range/Units 22:51 22:51 00:25 WBC (3.8-10.6) k/uL RBC (3.80-5.40) m/uL Hgb (11.4-16.0) gm/dL Hct (34.0-46.0) % Plt Count (150-450) k/uL APTT 21.8 L (22.0-30.0) sec Sodium (137-145) mmol/L Carbon Dioxide (22-30) mmol/L Creatinine (0.52-1.04) mg/dL Glucose (74-99) mg/dL POC Glucose (mg/dL) (70-110) mg/dL Plasma Lactic Acid [place] 2.4 H* (0.7-2.0) mmol/L Calcium (8.4-10.2) mg/dL ALT (4-34) U/L Alkaline Phosphatase (38-126) U/L Urine Protein (Negative) Urine Blood (Negative) Urine RBC (0-5) /hpf Urine Bacteria (None) /hpf Crossmatch See Detail 05/22/22 05/22/22 05/22/22 Range/Units 03:26 03:26 03:26 WBC 0.1 L* (3.8-10.6) k/uL RBC 3.40 L (3.80-5.40) m/uL Hgb 10.8 L (11.4-16.0) gm/dL Hct 30.8 L (34.0-46.0) % Plt Count 5 L* (150-450) k/uL APTT (22.0-30.0) sec Sodium 136 L (137-145) mmol/L Carbon Dioxide 21 L (22-30) mmol/L Creatinine 0.42 L (0.52-1.04) mg/dL Glucose 120 H (74-99) mg/dL POC Glucose (mg/dL) (70-110) mg/dL Plasma Lactic Acid [place] 5.7 H* (0.7-2.0) mmol/L Calcium 8.3 L (8.4-10.2) mg/dL ALT (4-34) U/L Alkaline Phosphatase (38-126) U/L Urine Protein (Negative) Urine Blood (Negative) Urine RBC (0-5) /hpf Urine Bacteria (None) /hpf Crossmatch 05/22/22 05/22/22 Range/Units 07:26 08:51 WBC (3.8-10.6) k/uL RBC (3.80-5.40) m/uL Hgb (11.4-16.0) gm/dL Hct (34.0-46.0) % Plt Count (150-450) k/uL APTT (22.0-30.0) sec Sodium (137-145) mmol/L Carbon Dioxide (22-30) mmol/L Creatinine (0.52-1.04) mg/dL Glucose (74-99) mg/dL POC Glucose (mg/dL) 170 H (70-110) mg/dL Plasma Lactic Acid [place] 2.1 H* (0.7-2.0) mmol/L Calcium (8.4-10.2) mg/dL ALT (4-34) U/L Alkaline Phosphatase (38-126) U/L Urine Protein (Negative) Urine Blood (Negative) Urine RBC (0-5) /hpf Urine Bacteria (None) /hpf Crossmatch Assessment and Plan Plan: 1-Patient presented to hospital with fever in this patient who did have history of acute myeloid leukemia on chemotherapy with a recent PICC line replacement for nonworking PICC line in this patient initial work-up including chest x-ray UA has been negative abdominal soft rectal examination concern for possible PICC line infection,, patient did have a fall with injury to the face no evidence of any fracture 2-patient to continue with the vancomycin and cefepime while waiting for the culture to finalize We will follow on clinical condition and cultures to further adjust medication if needed Thank you for this consultation we will follow the patient along with you Time with Patient: Greater than 30
[2022-05-23] MEDS: VANCOMYCIN 2,250 MG in SODIUM CHLORIDE 0.9% 500 ML 500 ML IVPB SCH ×2 (01:12→13:59)
[2022-05-23] MEDS: Acetaminophen-Codeine 300-30mg TAB PO PRN ×2 (03:58→14:11)
[2022-05-23 06:18] LABS: Hyperchromasia Slight; MCH 32.3 pg (25.0-35.0); MCHC 37.4 g/dL (31.0-37.0); MCV 86.4 fL (80.0-100.0); Mean Platelet Volume 8.2; Poikilocytosis Slight; RBC 2.28 m/uL (3.80-5.40); RDW 12.9 % (11.5-15.5)
[2022-05-23 06:26] LABS: ALT 37 U/L (4-34); AST 44 U/L (14-36); African American GFR (CKD) >90 (>60 ml/min/1.73 sqM); Albumin 2.6 g/dL (3.5-5.0); Alkaline Phosphatase 80 U/L (38-126); Anion Gap 3 mmol/L; Blood Urea Nitrogen 13 mg/dL (7-17); Calcium 7.3 mg/dL (8.4-10.2); Carbon Dioxide 20 mmol/L (22-30); Chloride 111 mmol/L (98-107); Glucose 112 mg/dL (74-99); Magnesium 1.5 mg/dL (1.6-2.3); Non-African American GFR(CKD) >90 (>60 ml/min/1.73 sqM); Potassium 3.6 mmol/L (3.5-5.1); Sodium 134 mmol/L (137-145); Total Bilirubin 0.9 mg/dL (0.2-1.3); Total Protein 5.1 g/dL (6.3-8.2)
[2022-05-23 06:34] LABS: WBC 0.2 k/uL (3.8-10.6)
[2022-05-23 06:35] LABS: HGB 7.4 gm/dL (11.4-16.0)
[2022-05-23 06:43] LABS: HCT 19.7 % (34.0-46.0); Platelet Count 11 k/uL (150-450)
[2022-05-23] MEDS: SODIUM CHLORIDE 0.9% 1,000 ML IV SCH ×3 (06:59→22:11)
[2022-05-23] MEDS ORDERED: Potassium Replacement Protocol 1 EACH MISC MISCELLANE PRN (07:03)
[2022-05-23] MEDS ORDERED: POTASSIUM CHLORIDE ER 20 MEQ TAB.ER PO SCH (08:00)
[2022-05-23 08:17] LABS: Spherocytes Present
[2022-05-23] MEDS: MAGNESIUM OXIDE 400 MG TAB PO SCH (08:36)
[2022-05-23] MEDS: LACOSAMIDE 50 MG TABLET PO SCH ×2 (08:36→21:04)
[2022-05-23] MEDS: PHENYTOIN SODIUM EXTENDED 100 MG CAP PO SCH ×3 (08:36→21:04)
[2022-05-23] MEDS: CEFEPIME 2 GM in SODIUM CHLORIDE 0.9% 100 ML IVPB SCH ×2 (08:36→15:16)
[2022-05-23] MEDS: MAGNESIUM SULFATE-D5W PMX 1 GM in DEXTROSE/WATER 1 100ML.BAG IVPB SCH ×3 (11:25→14:05)
--- NOTE | 2022-05-23 11:38 | P.PN ---
Subjective Progress Note Date: 05/23/22 Principal diagnosis: Hypotension. Pulmonary consult dated 05/22/2022. 66-year-old female with history of acute myelocytic leukemia. The patient has had recent chemotherapy, the last one being on May 14. The patient came into the hospital because of fever. He was found to be pancytopenic. She was admitted with possible neutropenic sepsis. I was called by the hospital ser vice, because the patient apparently fell while getting out of bed, injuring her facial area, with significant swelling to the left, and epistaxis. Facial computed tomography scan and brain CT scans were negative. The patient was placed on vancomycin and cefepime. He receiving IV fluids. Despite that, her blood pressures are little soft. Initially we saw her, and she looked relatively stable and we thought she could stay on the floor but more recently, her blood pressure continues to drop despite 1-1/2 L of fluid. That reason she'll be transferred to the intensive care unit for further monitoring and management. She does have a history of type 2 diabetes mellitus, and she is obese. She is on room air. White count 0.1, hemoglobin 10.8, hematocrit 30.8, and platelet count 5000. Sodium 136, potassium 3.8, chlorides 103, CO2 21, anion gap 12, BUN 14, creatinine 0.42. Lactic acid was 5.7. Calcium 8.3. Urine had some blood in it. No obvious infection. Testing for influenza A and B, RSV, and coronavirus were all negative. Chest x-ray was normal. Progress note dated 05/23/2022. This is a 66-year-old female with history of acute myelocytic leukemia. She recently had chemotherapy, and came into the hospital with possible neutropenic sepsis with fever. She was placed on broad-spectrum antibiotics. Because of hypotension, she was moved to the intensive care unit. In addition, she fell out of bed, and injured her facial area, and had significant epistaxis, that required nasal packing on the left, by ear nose and throat physician. Currently, she seen and appears comfortable. He is in room 264. She's not receiving any supplemental oxygen. She's getting saline at 130 mL an hour. She continues on vancomycin and cefepime empirically. White count is 0.2, hemogl obin 7.4, hematocrit 19.7, and platelet count 11,000. Sodium 134, potassium 3.6, chlorides 111, CO2 20, BUN 13, creatinine 0.33. Blood cultures are showing evidence of gram-negative bacilli, and has been identified as Klebsiella pneumoniae. Sensitivities are pending. Objective - Vital Signs Vital signs: Vital Signs Temp 97.8 F 05/23/22 08:00 Pulse 90 05/23/22 11:00 Resp 19 05/23/22 11:00 BP 137/80 05/23/22 11:00 Pulse Ox 96 05/23/22 11:00 FiO2 Intake & Output 05/22/22 05/23/22 05/23/22 18:59 06:59 18:59 Intake Total 4597 2290 410 Output Total 1630 2350 1015 Balance 2917 -14 -943 Weight 107.4 kg Intake: IV 3670 2290 410 Cefepime 2 gm In Sodium 100 Chloride 0.9% 100 ml @ 25 mls/hr IVPB Q8HR [facility] Rx# :[id number] Sodium Chloride 0.9% 1, 3670 1690 410 000 ml @ 130 mls/hr IV . Q7H42M [facility] Rx#:[id number] Vancomycin 2,250 mg In 500 Sodium Chloride 0.9% 500 ml 500 ml @ 167 mls/hr IVPB Q12H [facility] Rx#: [id number] Blood Product 927 Platelet Pheresis Pas 337 Psoralen Unit [id number] Platelet Pheresis Pas 280 Psoralen Unit [id number] Rc Irr As1 Unit 310 [id number] Output: Urine 1630 2350 1015 Other: Voiding Method Indwelling Catheter Indwelling Catheter Indwelling Catheter # Bowel Movements 1 - Exam No acute distress, oriented 3. No respiratory distress. Currently on room air. HEENT examination is grossly unremarkable. Epistaxis noted. Significant ecchymoses of the upper lip. Nasal packing is noted in the left nostril. Neck supple. Full range of motion. No adenopathy thyromegaly or neck vein distention. Cardiovascular examination reveals regular rhythm rate. S1-S2 normal. No S3 or S4. No discernible murmur noted. Heart rate 90 bpm. Lungs reveal clear breath sounds. Breath sounds are equal bilaterally. No adventitious lung sounds including wheezes rhonchi or crackles. Room air saturation is 96 %. Abdomen soft bowel sounds are heard. No masses or tenderness. Extremities are intact. No cyanosis clubbing or edema. Skin is without rash or lesion. Neurologic examination is brief but nonfocal. - Labs CBC & Chem 7: 05/23/22 05:07 05/23/22 05:07 Labs: Abnormal Lab Results - Last 24 Hours (Table) 05/21/22 05/23/22 05/23/22 Range/Units 22:51 05:07 05:07 WBC 0.2 L* (3.8-10.6) k/uL RBC 2.28 L (3.80-5.40) m/uL Hgb 7.4 L D (11.4-16.0) gm/dL Hct 19.7 L* (34.0-46.0) % MCHC 37.4 H (31.0-37.0) g/dL Plt Count 11 L* D (150-450) k/uL Sodium 134 L (137-145) mmol/L Chloride 111 H (98-107) mmol/L Carbon Dioxide 20 L (22-30) mmol/L Creatinine 0.33 L (0.52-1.04) mg/dL Glucose 112 H (74-99) mg/dL Calcium 7.3 L (8.4-10.2) mg/dL Magnesium 1.5 L (1.6-2.3) mg/dL AST 44 H (14-36) U/L ALT 37 H (4-34) U/L Total Protein 5.1 L (6.3-8.2) g/dL Albumin 2.6 L (3.5-5.0) g/dL Procalcitonin 0.10 H (0.02-0.09) ng/mL Microbiology - Last 24 Hours (Table) 05/21/22 22:51 Blood Culture Gram Stain - Preliminary Blood Blood Culture - Preliminary Gram Neg Bacilli 05/21/22 22:49 Blood Culture Gram Stain - Preliminary Blood Blood Culture - Preliminary Klebsiella pneumoniae 05/22/22 08:05 Blood Culture - Preliminary Blood No Growth after 24 hours 05/22/22 05:09 Blood Culture - Preliminary Blood No Growth after 24 hours 05/21/22 22:51 Blood Culture - Final Blood 05/21/22 22:51 Blood Culture - Final Blood Assessment and Plan Assessment: Neutropenic fever, with probable sepsis, secondary to Klebsiella pneumoniae bacteremia. Hypotension, secondary to sepsis. History of acute myelocytic leukemia, status post chemotherapy, 2, most recently on 05/14/2022. Pancytopenia. History of CVA. History of seizure disorder. History of neuropathy. Type 2 diabetes. History of gastric ulcer. Lifelong nonsmoker. Plan: Plan dated 05/22/2022. I did speak to the hospital service. We saw the patient and interviewed her. We examined her. Initially the patient appeared relatively stable and we are comfortable leaving her on the floor. More recently, despite fluids, the patient's blood pressure continues to drop, the patient be transferred to the intensive care unit for further monitoring and management. Labs, x-rays, medications are reviewed. The patient's on vancomycin and cefepime. Additional recommendations and suggestions are forthcoming. Plan dated 05/23/2022. The patient appears to be doing much better. She's not receiving any supplemental oxygen. She's getting IV fluids. Return down. The ear nose and throat physician came in and placed a nasal packing on the left side. Her epistaxis has stopped. The patient's blood cultures show evidence of bacteremia secondary to Klebsiella pneumoniae. The patient continues on vancomycin and cefepime. The patient has profound pancytopenia secondary to chemotherapy recently, on May 14. We will continue to follow make recommendations along the way. Prognosis is guarded. Time with Patient: Greater than 30
--- NOTE | 2022-05-23 12:37 | P.PN ---
Subjective Progress Note Date: 05/23/22 Principal diagnosis: AML -No acute events overnight, Tmax 100.3 F -Blood cultures are positive for Klebsiella pneumonia -She notes feeling improved today in terms of energy -Fatigue on admission has decreased with no persistent bleeding from the left nare currently Objective - Vital Signs Vital signs: Vital Signs Temp 97.8 F 05/23/22 08:00 Pulse 90 05/23/22 11:00 Resp 19 05/23/22 11:00 BP 137/80 05/23/22 11:00 Pulse Ox 96 05/23/22 11:00 FiO2 Intake & Output 05/22/22 05/23/22 05/23/22 18:59 06:59 18:59 Intake Total 4597 2290 410 Output Total 1630 2350 1015 Balance 1017 60 605 Weight 107.4 kg Intake: IV 3670 2290 410 Cefepime 2 gm In Sodium 100 Chloride 0.9% 100 ml @ 25 mls/hr IVPB Q8HR [facility] Rx# :[id number] Sodium Chloride 0.9% 1, 3670 1690 410 000 ml @ 130 mls/hr IV . Q7H42M [facility] Rx#:[id number] Vancomycin 2,250 mg In 500 Sodium Chloride 0.9% 500 ml 500 ml @ 167 mls/hr IVPB Q12H [facility] Rx#: [id number] Blood Product 927 Platelet Pheresis Pas 337 Psoralen Unit [id number] Platelet Pheresis Pas 280 Psoralen Unit [id number] Rc Irr As1 Unit 310 [id number] Output: Urine 1630 2350 1015 Other: Voiding Method Indwelling Catheter Indwelling Catheter Indwelling Catheter # Bowel Movements 1 - Constitutional Constitutional Comment(s): Ecchymosis under the eyes bilaterally and over the nasal bridge General appearance: Present: cooperative, no acute distress - EENT EENT Comment(s): Left nare with Rhino packing gauze present. Dried blood is noted - Respiratory Respiratory: bilateral: CTA - Cardiovascular Rhythm: regular - Gastrointestinal General gastrointestinal: Present: soft. Absent: distended - Integumentary Integumentary Comment(s): Ecchymoses under the eyes bilaterally and over nasal bridge - Psychiatric Psychiatric: Present: A&O x's 3 - Labs CBC & Chem 7: 05/23/22 05:07 05/23/22 05:07 Labs: Abnormal Lab Results - Last 24 Hours (Table) 05/21/22 05/23/22 05/23/22 Range/Units 22:51 05:07 05:07 WBC 0.2 L* (3.8-10.6) k/uL RBC 2.28 L (3.80-5.40) m/uL Hgb 7.4 L D (11.4-16.0) gm/dL Hct 19.7 L* (34.0-46.0) % MCHC 37.4 H (31.0-37.0) g/dL Plt Count 11 L* D (150-450) k/uL Sodium 134 L (137-145) mmol/L Chloride 111 H (98-107) mmol/L Carbon Dioxide 20 L (22-30) mmol/L Creatinine 0.33 L (0.52-1.04) mg/dL Glucose 112 H (74-99) mg/dL Calcium 7.3 L (8.4-10.2) mg/dL Magnesium 1.5 L (1.6-2.3) mg/dL AST 44 H (14-36) U/L ALT 37 H (4-34) U/L Total Protein 5.1 L (6.3-8.2) g/dL Albumin 2.6 L (3.5-5.0) g/dL Procalcitonin 0.10 H (0.02-0.09) ng/mL Microbiology - Last 24 Hours (Table) 05/21/22 22:51 Blood Culture Gram Stain - Preliminary Blood Blood Culture - Preliminary Gram Neg Bacilli 05/21/22 22:49 Blood Culture Gram Stain - Preliminary Blood Blood Culture - Preliminary Klebsiella pneumoniae 05/22/22 08:05 Blood Culture - Preliminary Blood No Growth after 24 hours 05/22/22 05:09 Blood Culture - Preliminary Blood No Growth after 24 hours 05/21/22 22:51 Blood Culture - Final Blood 05/21/22 22:51 Blood Culture - Final Blood Assessment and Plan (1) Acute myeloid leukemia Current Visit: Yes Status: Chronic Priority: High Code(s): C92.00 - ACUTE MYELOBLASTIC LEUKEMIA, NOT HAVING ACHIEVED REMISSION SNOMED Code(s): 81508579 (2) Neutropenic fever Current Visit: Yes Status: Acute Code(s): D70.9 - NEUTROPENIA, UNSPECIFIED; R50.81 - FEVER PRESENTING WITH CONDITIONS CLASSIFIED ELSEWHERE SNOMED Code(s): 138710239 Plan: Neutropenic fever -She received HiDAC consolidative chemotherapy the week of 05/10/2022 to 05/14/2022 and subsequently received Neulasta on 05/15/2022 -She was noted to have fever on 05/21/2022 with no other localizing signs or symptoms -Chest x-ray reveals no acute process concerning for infection -Blood cultures from admission are positive from Klebsiella pneumonia, which is likely due to translocation from the gut given recent HiDAC chemotherapy -Continue empiric vancomycin/cefepime with changes likely pending ID recommendations, appreciate their assistance. From an oncology perspective, vancomycin can be discontinued Core binding factor AML -Received 7+3 induction chemotherapy in December 2021 -This was complicated by subdural and subarachnoid hemorrhage along with seizures -Repeat bone marrow biopsy in February 2022 revealed complete remission -She was evaluated at [facility] and given her translocation (8;21) she was determined to be a candidate for consolidative chemotherapy as opposed to proceeding with allogenic stem cell transplant -She received cycle 1 of HiDAC on 05/10/2022 and was discharged on 05/14/2022. She received Neulasta on 05/15/2022 -She likely has pancytopenia that is chemotherapy-induced along with superimposed Klebsiella pneumoniae bacteremia -Transfuse for hemoglobin less than 7 and/or platelet count less than 20,000 due to her history of intracranial hemorrhage -1 unit of pheresis platelets ordered today for platelet count of 11,000
--- NOTE | 2022-05-23 13:04 | P.PN ---
Subjective Progress Note Date: 05/23/22 patient is 66-year-old lady with past medical significant for acute myeloid leukemia who presented to the ER because of fevers. Patient normally receives chemotherapy at [facility] with her last session being last week. Patient had a PICC line placed yesterday and received platelet transfusion, following that she started noticing fevers. There was no complain of shortness of breath. No complaint of any cough. Because of fever she became concerned and came to the ER, initial workup in the ER showed white count of 0.2, hemoglobin 11.3, platelet count 10, sodium 137, potassium 4.4, chloride 103, BUN 15, creatinine 0.4, lactic acid level initially was 2.4. Initial chest x-ray was negative for acute cardiac pulmonary process. Patient was started on broad- spectrum antibiotic and was admitted to internal medicine team. While in the floor patient had a fall, receiving trauma to her face.CT face as as well as CT head and neck showed no acute intrarenal process, no evidence of cervical spine fracture, no acute facial bone fractures., Did show soft tissue hematoma anterior to the maxilla with partial opacification of the left nasal cavity. Patient was having episodes of hypotension, patient received adequate fluid resuscitation but was still hypotensive so was transferred to ICU. 05/23. Patient seen and examined. White count this morning is 0.2, hemoglobin 7.4, platelet count 11k, sodium 134, potassium 3.6,. Vital signs morning are temperature 97.8, heart rate 88, blood pressure 126/67, on room air. No further episodes of epistaxis, nasal packing in place REVIEW OF SYSTEMS: CONSTITUTIONAL: No fever, no malaise,. CARDIOVASCULAR: No chest pain, no palpitations, no syncope. PULMONARY: No shortness of breath, no cough, GASTROINTESTINAL: No diarrhea, no nausea, no vomiting, no abdominal pain. NEUROLOGICAL: No headaches, no weakness, PHYSICAL EXAMINATION: GENERAL: The patient is alert and oriented x3, not in any acute distress. Well developed, well nourished. Facial trauma noticeable, bruising around her nose and eyes, nasal packing in place HEENT: Pupils are round and equally reacting to light. EOMI. No scleral icterus. No pharyngeal erythema. No thyromegaly. CARDIOVASCULAR: S1 and S2 present. No murmurs, rubs, or gallops. PULMONARY: Chest is clear to auscultation, no wheezing or crackles. ABDOMEN: Soft, nontender, nondistended, normoactive bowel sounds. No palpable organomegaly. MUSCULOSKELETAL: No joint swelling or deformity. EXTREMITIES: No cyanosis, clubbing, or pedal edema. NEUROLOGICAL: Gross neurological examination did not reveal any focal deficits. SKIN: No rashes. Assessment and plan Neutropenic fever Sepsis Gram Negative bacteremia Facial trauma Epistaxis History of acute myelocytic leukemia, status post chemotherapy, 2, most recently on 05/14/2022. Pancytopenia. History of CVA. History of seizure disorder. History of neuropathy. Type 2 diabetes. History of gastric ulcer. Lifelong nonsmoker. Plan; Monitor vital signs Monitor CBC -Transfuse for hemoglobin less than 7 and/or platelet count less than 20,000 due to her history of intracranial hemorrhage. Follow-up on blood cultures, blood culture showing gram-negative bacilli, Kl ebsiella pneumonia Continue IV fluid Continue IV cefepime and vancomycin ENT consulted for epistaxis, patient received posterior nasal packing ICU on board Follow-up on ID recommendations Hematology oncology following, receiving 1 unit of platelets Objective - Vital Signs Vital signs: Vital Signs Temp 97.8 F 05/23/22 08:00 Pulse 88 05/23/22 08:00 Resp 18 05/23/22 08:00 BP 126/67 05/23/22 08:00 Pulse Ox 97 05/23/22 09:04 FiO2 Intake & Output 05/22/22 05/23/22 05/23/22 18:59 06:59 18:59 Intake Total 4597 2290 260 Output Total 1630 2350 575 Balance 2967 -60 -315 Weight 107.4 kg Intake: IV 3670 2290 260 Cefepime 2 gm In Sodium 100 Chloride 0.9% 100 ml @ 25 mls/hr IVPB Q8HR [facility] Rx# :[id number] Sodium Chloride 0.9% 1, 3670 1690 260 000 ml @ 130 mls/hr IV . Q7H42M [facility] Rx#:[id number] Vancomycin 2,250 mg In 500 Sodium Chloride 0.9% 500 ml 500 ml @ 167 mls/hr IVPB Q12H [facility] Rx#: [id number] Blood Product 927 Platelet Pheresis Pas 337 Psoralen Unit [id number] Platelet Pheresis Pas 280 Psoralen Unit [id number] Rc Irr As1 Unit 310 [id number] Output: Urine 1630 2350 575 Other: Voiding Method Indwelling Catheter Indwelling Catheter Indwelling Catheter - Labs CBC & Chem 7: 05/23/22 05:07 05/23/22 05:07 Labs: Abnormal Lab Results - Last 24 Hours (Table) 05/21/22 05/22/22 05/23/22 Range/Units 22:51 00:25 05:07 WBC 0.2 L* (3.8-10.6) k/uL RBC 2.28 L (3.80-5.40) m/uL Hgb 7.4 L D (11.4-16.0) gm/dL Hct 19.7 L* (34.0-46.0) % MCHC 37.4 H (31.0-37.0) g/dL Plt Count 11 L* D (150-450) k/uL Sodium (137-145) mmol/L Chloride (98-107) mmol/L Carbon Dioxide (22-30) mmol/L Creatinine (0.52-1.04) mg/dL Glucose (74-99) mg/dL Calcium (8.4-10.2) mg/dL Magnesium (1.6-2.3) mg/dL AST (14-36) U/L ALT (4-34) U/L Total Protein (6.3-8.2) g/dL Albumin (3.5-5.0) g/dL Procalcitonin 0.10 H (0.02-0.09) ng/mL Crossmatch See Detail 05/23/22 Range/Units 05:07 WBC (3.8-10.6) k/uL RBC (3.80-5.40) m/uL Hgb (11.4-16.0) gm/dL Hct (34.0-46.0) % MCHC (31.0-37.0) g/dL Plt Count (150-450) k/uL Sodium 134 L (137-145) mmol/L Chloride 111 H (98-107) mmol/L Carbon Dioxide 20 L (22-30) mmol/L Creatinine 0.33 L (0.52-1.04) mg/dL Glucose 112 H (74-99) mg/dL Calcium 7.3 L (8.4-10.2) mg/dL Magnesium 1.5 L (1.6-2.3) mg/dL AST 44 H (14-36) U/L ALT 37 H (4-34) U/L Total Protein 5.1 L (6.3-8.2) g/dL Albumin 2.6 L (3.5-5.0) g/dL Procalcitonin (0.02-0.09) ng/mL Crossmatch Microbiology - Last 24 Hours (Table) 05/21/22 22:49 Blood Culture Gram Stain - Preliminary Blood Blood Culture - Preliminary Klebsiella pneumoniae 05/22/22 05:09 Blood Culture - Preliminary Blood No Growth after 24 hours 05/21/22 22:51 Blood Culture Gram Stain - Preliminary Blood 05/21/22 22:51 Blood Culture - Final Blood 05/21/22 22:51 Blood Culture - Final Blood
--- NOTE | 2022-05-23 16:33 | P.PN ---
Subjective Progress Note Date: 05/23/22 Principal diagnosis: Febrile neutropenia and bacteremia Patient is a 66-year-old female past medical history significant for acute myeloid leukemia CVA TIA seizure disorder last chemo on May 14, 2022 patient presented to the hospital 05/22/2022 because of the fever , patient did have a fall in hospital with significant epistaxis and bruising to the face area, blood cultures coming back positive with Klebsiella On today's evaluation that is 05/23/2022, the patient fever pattern has improved still running a low-grade fever 100F, the patient is breathing comfortably on room air no further epistaxis and no chest pain shortness of breath or cough no abdominal pain or diarrhea she did have a bowel movement that was formed Objective - Vital Signs Vital signs: Vital Signs Temp 99.9 F H 05/23/22 14:44 Pulse 93 05/23/22 15:00 Resp 19 05/23/22 15:00 BP 135/78 05/23/22 15:00 Pulse Ox 94 L 05/23/22 15:00 FiO2 Intake & Output 05/22/22 05/23/22 05/23/22 18:59 06:59 18:59 Intake Total 4597 2290 1460 Output Total 1630 2350 1540 Balance 2967 -60 -80 Weight 107.4 kg Intake: IV 3670 2290 1460 Cefepime 2 gm In Sodium 100 100 Chloride 0.9% 100 ml @ 25 mls/hr IVPB Q8HR [facility] Rx# :[id number] Magnesium Sulfate-D5w Pmx 300 1 gm In Dextrose/Water 1 100ml.bag @ 100 mls/hr IVPB Q1H [facility] Rx#: [id number] Sodium Chloride 0.9% 1, 3670 1690 560 000 ml @ 130 mls/hr IV . Q7H42M [facility] Rx#:[id number] Vancomycin 2,250 mg In 500 500 Sodium Chloride 0.9% 500 ml 500 ml @ 167 mls/hr IVPB Q12H [facility] Rx#: [id number] Blood Product 927 0 Unit 0 Platelet Pheresis Pas 337 Psoralen Unit [id number] Platelet Pheresis Pas 280 Psoralen Unit [id number] Rc Irr As1 Unit 310 [id number] Output: Urine 1630 2350 1540 Other: Voiding Method Indwelling Catheter Indwelling Catheter Indwelling Catheter # Bowel Movements 1 - Exam GENERAL DESCRIPTION: An elderly female up in the chair in no distress RESPIRATORY SYSTEM: Unlabored breathing , decreased breath sounds at bases HEART: S1 S2 regular rate and rhythm , ABDOMEN: Soft , no tenderness EXTREMITIES: No edema feet - Labs CBC & Chem 7: 05/23/22 05:07 05/23/22 05:07 Labs: Abnormal Lab Results - Last 24 Hours (Table) 05/23/22 05/23/22 Range/Units 05:07 05:07 WBC 0.2 L* (3.8-10.6) k/uL RBC 2.28 L (3.80-5.40) m/uL Hgb 7.4 L D (11.4-16.0) gm/dL Hct 19.7 L* (34.0-46.0) % MCHC 37.4 H (31.0-37.0) g/dL Plt Count 11 L* D (150-450) k/uL Sodium 134 L (137-145) mmol/L Chloride 111 H (98-107) mmol/L Carbon Dioxide 20 L (22-30) mmol/L Creatinine 0.33 L (0.52-1.04) mg/dL Glucose 112 H (74-99) mg/dL Calcium 7.3 L (8.4-10.2) mg/dL Magnesium 1.5 L (1.6-2.3) mg/dL AST 44 H (14-36) U/L ALT 37 H (4-34) U/L Total Protein 5.1 L (6.3-8.2) g/dL Albumin 2.6 L (3.5-5.0) g/dL Microbiology - Last 24 Hours (Table) 05/21/22 22:51 Blood Culture Gram Stain - Preliminary Blood Blood Culture - Preliminary Gram Neg Bacilli 05/21/22 22:49 Blood Culture Gram Stain - Preliminary Blood Blood Culture - Preliminary Klebsiella pneumoniae 05/22/22 08:05 Blood Culture - Preliminary Blood No Growth after 24 hours 05/22/22 05:09 Blood Culture - Preliminary Blood No Growth after 24 hours 05/21/22 22:51 Blood Culture - Final Blood 05/21/22 22:51 Blood Culture - Final Blood Assessment and Plan (1) Febrile neutropenia Current Visit: Yes Status: Acute Code(s): D70.9 - NEUTROPENIA, UNSPECIFIED; R50.81 - FEVER PRESENTING WITH CONDITIONS CLASSIFIED ELSEWHERE SNOMED Code(s): 538750543 (2) Bacteremia Current Visit: Yes Status: Acute Code(s): R78.81 - BACTEREMIA SNOMED Code( s): 7946310 Plan: 1-Patient presented to hospital with fever in this patient who did have history of acute myeloid leukemia on chemotherapy with a recent PICC line replacement for nonworking PICC line in this patient initial work-up including chest x-ray UA has been negative abdominal soft on clinical examination concern for possible PICC line infection,patient did have a fall with injury to the face no evidence of any fracture 2-patient blood culture Were positive with gram-negative bacilli with ID sensitivities pending blood culture has been repeated from the PICC and peripheral this morning which will be followed up we will continue cefepime and discontinue vancomycin Time with Patient: Less than 30
[2022-05-23] MEDS: PANTOPRAZOLE 40 MG TABLET PO SCH (20:53)
[2022-05-24] MEDS: Acetaminophen-Codeine 300-30mg TAB PO PRN (00:40)
[2022-05-24] MEDS: CEFEPIME 2 GM in SODIUM CHLORIDE 0.9% 100 ML IVPB SCH ×3 (00:40→15:55)
[2022-05-24 04:43] LABS: Hyperchromasia Marked; MCHC 36.7 g/dL (31.0-37.0); MCV 84.3 fL (80.0-100.0); Mean Platelet Volume 8.8; Poikilocytosis Slight; RBC 2.27 m/uL (3.80-5.40); RDW 13.1 % (11.5-15.5)
[2022-05-24] MEDS: SODIUM CHLORIDE 0.9% 1,000 ML IV SCH (04:46)
[2022-05-24 04:48] LABS: WBC 0.3 k/uL (3.8-10.6)
[2022-05-24 04:52] LABS: HCT 19.1 % (34.0-46.0); Platelet Count 9 k/uL (150-450)
[2022-05-24 05:20] LABS: ALT 30 U/L (4-34); AST 35 U/L (14-36); African American GFR (CKD) >90 (>60 ml/min/1.73 sqM); Albumin 2.7 g/dL (3.5-5.0); Alkaline Phosphatase 79 U/L (38-126); Anion Gap 4 mmol/L; Blood Urea Nitrogen 6 mg/dL (7-17); Calcium 7.5 mg/dL (8.4-10.2); Carbon Dioxide 24 mmol/L (22-30); Chloride 105 mmol/L (98-107); Glucose 132 mg/dL (74-99); Non-African American GFR(CKD) >90 (>60 ml/min/1.73 sqM); Potassium 3.3 mmol/L (3.5-5.1); Sodium 133 mmol/L (137-145); Total Bilirubin 0.8 mg/dL (0.2-1.3); Total Protein 5.4 g/dL (6.3-8.2)
--- NOTE | 2022-05-24 06:00 | P.PN ---
Subjective Progress Note Date: 05/24/22 Principal diagnosis: Hypotension. Pulmonary consult dated 05/22/2022. 66-year-old female with history of acute myelocytic leukemia. The patient has had recent chemotherapy, the last one being on May 14. The patient came into the hospital because of fever. He was found to be pancytopenic. She was admitted with possible neutropenic sepsis. I was called by the hospital ser vice, because the patient apparently fell while getting out of bed, injuring her facial area, with significant swelling to the left, and epistaxis. Facial computed tomography scan and brain CT scans were negative. The patient was placed on vancomycin and cefepime. He receiving IV fluids. Despite that, her blood pressures are little soft. Initially we saw her, and she looked relatively stable and we thought she could stay on the floor but more recently, her blood pressure continues to drop despite 1-1/2 L of fluid. That reason she'll be transferred to the intensive care unit for further monitoring and management. She does have a history of type 2 diabetes mellitus, and she is obese. She is on room air. White count 0.1, hemoglobin 10.8, hematocrit 30.8, and platelet count 5000. Sodium 136, potassium 3.8, chlorides 103, CO2 21, anion gap 12, BUN 14, creatinine 0.42. Lactic acid was 5.7. Calcium 8.3. Urine had some blood in it. No obvious infection. Testing for influenza A and B, RSV, and coronavirus were all negative. Chest x-ray was normal. Progress note dated 05/23/2022. This is a 66-year-old female with history of acute myelocytic leukemia. She recently had chemotherapy, and came into the hospital with possible neutropenic sepsis with fever. She was placed on broad-spectrum antibiotics. Because of hypotension, she was moved to the intensive care unit. In addition, she fell out of bed, and injured her facial area, and had significant epistaxis, that required nasal packing on the left, by ear nose and throat physician. Currently, she seen and appears comfortable. He is in room 264. She's not receiving any supplemental oxygen. She's getting saline at 130 mL an hour. She continues on vancomycin and cefepime empirically. White count is 0.2, hemogl obin 7.4, hematocrit 19.7, and platelet count 11,000. Sodium 134, potassium 3.6, chlorides 111, CO2 20, BUN 13, creatinine 0.33. Blood cultures are showing evidence of gram-negative bacilli, and has been identified as Klebsiella pneumoniae. Sensitivities are pending. Progress note dated 05/24/2022. 66-year-old female seen again in room 264. She has a history of acute myelocytic leukemia, status post 2 rounds of chemotherapy, the last on May 14. Subsequent to that, she developed severe pancytopenia, with fever, and possible neutropenic sepsis. Blood cultures did reveal evidence of Klebsiella pneumoniae. She's currently on cefepime. She's received 1 unit of packed red blood cells, and 3 units of platelets since being here in the hospital. She's on room air. She's getting saline at 50 mL an hour. She fell getting out of bed, and traumatized her facial area. She had a significant epistaxis that required nasal packing by otolaryngology. White count 0.3, hemoglobin 7, hematocrit 19.1, and platelet count 9000. The rest of the labs are pending today. Objective - Vital Signs Vital signs: Vital Signs Temp 98.3 F 05/24/22 04:00 Pulse 86 05/24/22 05:00 Resp 14 05/24/22 05:00 BP 132/82 05/24/22 05:00 Pulse Ox 96 05/24/22 05:00 FiO2 Intake & Output 05/23/22 05/23/22 05/24/22 06:59 18:59 06:59 Intake Total 2290 1751 690 Output Total 3254 0008 6518 Balance -53 -115 -7332 Weight 107.4 kg Intake: IV 2290 1460 690 0.9 @ KVO 90 Cefepime 2 gm In Sodium 100 100 100 Chloride 0.9% 100 ml @ 25 mls/hr IVPB Q8HR [facility] Rx# :[id number] Magnesium Sulfate-D5w Pmx 300 1 gm In Dextrose/Water 1 100ml.bag @ 100 mls/hr IVPB Q1H [facility] Rx#: [id number] Sodium Chloride 0.9% 1, 1690 560 500 000 ml @ 130 mls/hr IV . Q7H42M [facility] Rx#:[id number] Vancomycin 2,250 mg In 500 500 Sodium Chloride 0.9% 500 ml 500 ml @ 167 mls/hr IVPB Q12H [facility] Rx#: [id number] Blood Product 291 Platelet Pheresis Pas 291 Psoralen Unit [id number] Output: Urine 2350 2015 2415 Other: Voiding Method Indwelling Catheter Indwelling Catheter Indwelling Catheter # Bowel Movements 1 - Exam No acute distress, oriented 3. No respiratory distress. Currently on room air. HEENT examination is grossly unremarkable. Epistaxis noted. Significant ecchymoses of the upper lip. Nasal packing is noted in the left nostril. Neck supple. Full range of motion. No adenopathy thyromegaly or neck vein distention. Cardiovascular examination reveals regular rhythm rate. S1-S2 normal. No S3 or S4. No discernible murmur noted. Heart rate 86 bpm. Lungs reveal clear breath sounds. Breath sounds are equal bilaterally. No adventitious lung sounds including wheezes rhonchi or crackles. Room air saturation is 96 %. Abdomen soft bowel sounds are heard. No masses or tenderness. Extremities are intact. No cyanosis clubbing or edema. Skin is without rash or lesion. Neurologic examination is brief but nonfocal. - Labs CBC & Chem 7: 05/24/22 04:14 05/24/22 04:14 Labs: Abnormal Lab Results - Last 24 Hours (Table) 05/23/22 05/23/22 05/24/22 Range/Units 05:07 05:07 04:14 WBC 0.2 L* 0.3 L* (3.8-10.6) k/uL RBC 2.28 L 2.27 L (3.80-5.40) m/uL Hgb 7.4 L D 7.0 L (11.4-16.0) gm/dL Hct 19.7 L* 19.1 L* (34.0-46.0) % MCHC 37.4 H (31.0-37.0) g/dL Plt Count 11 L* D 9 L* (150-450) k/uL Sodium 134 L (137-145) mmol/L Potassium (3.5-5.1) mmol/L Chloride 111 H (98-107) mmol/L Carbon Dioxide 20 L (22-30) mmol/L Creatinine 0.33 L (0.52-1.04) mg/dL Glucose 112 H (74-99) mg/dL Calcium 7.3 L (8.4-10.2) mg/dL Magnesium 1.5 L (1.6-2.3) mg/dL AST 44 H (14-36) U/L ALT 37 H (4-34) U/L Total Protein 5.1 L (6.3-8.2) g/dL Albumin 2.6 L (3.5-5.0) g/dL 05/24/22 Range/Units 04:14 WBC (3.8-10.6) k/uL RBC (3.80-5.40) m/uL Hgb (11.4-16.0) gm/dL Hct (34.0-46.0) % MCHC (31.0-37.0) g/dL Plt Count (150-450) k/uL Sodium (137-145) mmol/L Potassium 3.3 L (3.5-5.1) mmol/L Chloride (98-107) mmol/L Carbon Dioxide (22-30) mmol/L Creatinine (0.52-1.04) mg/dL Glucose (74-99) mg/dL Calcium (8.4-10.2) mg/dL Magnesium (1.6-2.3) mg/dL AST (14-36) U/L ALT (4-34) U/L Total Protein (6.3-8.2) g/dL Albumin (3.5-5.0) g/dL Microbiology - Last 24 Hours (Table) 05/21/22 22:51 Blood Culture Gram Stain - Preliminary Blood Blood Culture - Preliminary Gram Neg Bacilli 05/21/22 22:49 Blood Culture Gram Stain - Preliminary Blood Blood Culture - Preliminary Klebsiella pneumoniae 05/22/22 08:05 Blood Culture - Preliminary Blood No Growth after 24 hours 05/22/22 05:09 Blood Culture - Preliminary Blood No Growth after 24 hours Assessment and Plan Assessment: Neutropenic fever, with probable sepsis, secondary to Klebsiella pneumoniae bacteremia. Hypotension, secondary to sepsis. History of acute myelocytic leukemia, status post chemotherapy, 2, most recently on 05/14/2022. S/P fall, with facial trauma, and epistaxis. Pancytopenia. History of CVA. History of seizure disorder. History of neuropathy. Type 2 diabetes. History of gastric ulcer. Lifelong nonsmoker. Plan: Plan dated 05/22/2022. I did speak to the hospital service. We saw the patient and interviewed her. We examined her. Initially the patient appeared relatively stable and we are comfortable leaving her on the floor. More recently, despite fluids, the pat rios's blood pressure continues to drop, the patient be transferred to the intensive care unit for further monitoring and management. Labs, x-rays, medications are reviewed. The patient's on vancomycin and cefepime. Additional recommendations and suggestions are forthcoming. Plan dated 05/23/2022. The patient appears to be doing much better. She's not receiving any supplemental oxygen. She's getting IV fluids. Return down. The ear nose and throat physician came in and placed a nasal packing on the left side. Her epistaxis has stopped. The patient's blood cultures show evidence of bacteremia secondary to Klebsiella pneumoniae. The patient continues on vancomycin and cefepime. The patient has profound pancytopenia secondary to chemotherapy recently, on May 14. We will continue to follow make recommendations along the way. Prognosis is guarded. Plan dated 05/24/2022. The patient is seen today in room 264. Currently on room air. The patient is receiving saline at 50 mL an hour. The patient continues on cefepime for Klebsiella sepsis. Blood pressure stable. She's received 1 unit of packed red blood cells, and 3 units of platelets. We will continue to follow the patient. She could be transferred out of the intensive care unit, later today. Prognosis is guarded. Blood counts are still quite low, and she is still quite pancytopenic. Time with Patient: Less than 30
[2022-05-24] MEDS: PHENYTOIN SODIUM EXTENDED 100 MG CAP PO SCH ×3 (08:49→21:03)
[2022-05-24] MEDS: MAGNESIUM OXIDE 400 MG TAB PO SCH (08:49)
[2022-05-24] MEDS: LACOSAMIDE 50 MG TABLET PO SCH ×2 (08:51→21:02)
[2022-05-24] MEDS ORDERED: VANCOMYCIN TROUGH DUE 1 EACH MISC MISCELLANE ONE (12:00)
--- NOTE | 2022-05-24 13:23 | P.PN ---
Subjective Progress Note Date: 05/24/22 patient is 66-year-old lady with past medical significant for acute myeloid leukemia who presented to the ER because of fevers. Patient normally receives chemotherapy at [facility] with her last session being last week. Patient had a PICC line placed yesterday and received platelet transfusion, following that she started noticing fevers. There was no complain of shortness of breath. No complaint of any cough. Because of fever she became concerned and came to the ER, initial workup in the ER showed white count of 0.2, hemoglobin 11.3, platelet count 10, sodium 137, potassium 4.4, chloride 103, BUN 15, creatinine 0.4, lactic acid level initially was 2.4. Initial chest x-ray was negative for acute cardiac pulmonary process. Patient was started on broad- spectrum antibiotic and was admitted to internal medicine team. While in the floor patient had a fall, receiving trauma to her face.CT face as as well as CT head and neck showed no acute intrarenal process, no evidence of cervical spine fracture, no acute facial bone fractures., Did show soft tissue hematoma anterior to the maxilla with partial opacification of the left nasal cavity. Patient was having episodes of hypotension, patient received adequate fluid resuscitation but was still hypotensive so was transferred to ICU. 05/23. Patient seen and examined. White count this morning is 0.2, hemoglobin 7.4, platelet count 11k, sodium 134, potassium 3.6,. Vital signs morning are temperature 97.8, heart rate 88, blood pressure 126/67, on room air. No further episodes of epistaxis, nasal packing in place 05/24. Patient seen and examined. No acute overnight. Denies any epistaxis. White count today is 0.3, hemoglobin 7, platelet count 9. Potassium this morning is 3.3. Patient being transfused another unit of platelets and packed red blood cell REVIEW OF SYSTEMS: CONSTITUTIONAL: No fever, no malaise,. CARDIOVASCULAR: No chest pain, no palpitations, PULMONARY: No shortness of breath, GASTROINTESTINAL: No diarrhea, no nausea, no vomiting, no abdominal pain. NEUROLOGICAL: No headaches, no weakness, PHYSICAL EXAMINATION: GENERAL: The patient is alert and oriented x3, not in any acute distress. Well developed, well nourished. Facial trauma noticeable, bruising around her nose a nd eyes, nasal packing in place HEENT: Pupils are round and equally reacting to light. EOMI. No scleral icterus. No pharyngeal erythema. No thyromegaly. CARDIOVASCULAR: S1 and S2 present. No murmurs, rubs, or gallops. PULMONARY: Chest is clear to auscultation, no wheezing or crackles. ABDOMEN: Soft, nontender, nondistended, normoactive bowel sounds. No palpable organomegaly. MUSCULOSKELETAL: No joint swelling or deformity. EXTREMITIES: No cyanosis, clubbing, or pedal edema. NEUROLOGICAL: Gross neurological examination did not reveal any focal deficits. SKIN: No rashes. Assessment and plan Neutropenic fever Sepsis Gram Negative bacteremia Facial trauma Epistaxis History of acute myelocytic leukemia, status post chemotherapy, 2, most recently on 05/14/2022. Pancytopenia. History of CVA. History of seizure disorder. History of neuropathy. Type 2 diabetes. History of gastric ulcer. Lifelong nonsmoker. Plan; Monitor vital signs Monitor CBC -Transfuse for hemoglobin less than 7 and/or platelet count less than 20,000 due to her history of intracranial hemorrhage. Follow-up on blood cultures, blood culture showing gram-negative bacilli, Klebsiella pneumonia Continue IV fluid Continue IV cefepime, vancomycin discontinued by ID ENT consulted for epistaxis, patient received posterior nasal packing ICU on board Follow-up on ID recommendations Hematology oncology following, ordering another unit of platelets and 1 unit of packed red blood cell Patient being transferred out of ICU Objective - Vital Signs Vital signs: Vital Signs Temp 98.2 F 05/24/22 08:00 Pulse 110 H 05/24/22 08:00 Resp 23 05/24/22 08:00 BP 124/72 05/24/22 08:00 Pulse Ox 97 05/24/22 08:44 FiO2 Intake & Output 05/23/22 05/24/22 05/24/22 18:59 06:59 18:59 Intake Total 1751 810 60 Output Total 2014 1805 300 Balance -264 -6617 -886 Weight 115.6 kg Intake: IV 1460 810 60 0.9 @ KVO 110 10 Cefepime 2 gm In Sodium 100 100 Chloride 0.9% 100 ml @ 25 mls/hr IVPB Q8HR [facility] Rx# :[id number] Magnesium Sulfate-D5w Pmx 300 1 gm In Dextrose/Water 1 100ml.bag @ 100 mls/hr IVPB Q1H [facility] Rx#: [id number] Sodium Chloride 0.9% 1, 560 600 50 000 ml @ 130 mls/hr IV . Q[facility]H42M [facility] Rx#:[id number] Vancomycin 2,250 mg In 500 Sodium Chloride 0.9% 500 ml 500 ml @ 167 mls/hr IVPB Q12H [facility] Rx#: [id number] Blood Product 291 Platelet Pheresis Pas 291 Psoralen Unit [id number] Output: Urine 2015 3115 300 Other: Voiding Method Indwelling Catheter Indwelling Catheter Indwelling Catheter # Bowel Movements 1 - Labs CBC & Chem 7: 05/24/22 04:14 05/24/22 04:14 Labs: Abnormal Lab Results - Last 24 Hours (Table) 05/22/22 05/24/22 05/24/22 Range/Units 00:25 04:14 04:14 WBC 0.3 L* (3.8-10.6) k/uL RBC 2.27 L (3.80-5.40) m/uL Hgb 7.0 L (11.4-16.0) gm/dL Hct 19.1 L* (34.0-46.0) % Plt Count 9 L* (150-450) k/uL Sodium 133 L (137-145) mmol/L Potassium 3.3 L (3.5-5.1) mmol/L BUN 6 L (7-17) mg/dL Creatinine 0.33 L (0.52-1.04) mg/dL Glucose 132 H (74-99) mg/dL Calcium 7.5 L (8.4-10.2) mg/dL Total Protein 5.4 L (6.3-8.2) g/dL Albumin 2.7 L (3.5-5.0) g/dL Crossmatch See Detail Microbiology - Last 24 Hours (Table) 05/23/22 05:07 Blood Culture - Preliminary Blood No Growth after 24 hours 05/23/22 05:07 Blood Culture - Preliminary Blood No Growth after 24 hours 05/22/22 05:09 Blood Culture - Preliminary Blood No Growth after 48 hours 05/21/22 22:51 Blood Culture Gram Stain - Preliminary Blood Blood Culture - Preliminary Gram Neg Bacilli 05/21/22 22:49 Blood Culture Gram Stain - Preliminary Blood Blood Culture - Preliminary Klebsiella pneumoniae 05/22/22 08:05 Blood Culture - Preliminary Blood No Growth after 24 hours
[2022-05-24] MEDS: POTASSIUM CHLORIDE ER 20 MEQ TAB.ER PO SCH ×2 (14:28→15:55)
--- NOTE | 2022-05-24 14:39 | P.PN ---
Subjective Progress Note Date: 05/24/22 Principal diagnosis: neutropenic fever, hx AML At today's visit patient is resting comfortably in bed. Epistaxis has resolved. Patient denies nausea vomiting diarrhea. Temperature was 100.1 last night. She denies pain at this time. No other reported complaints Objective - Vital Signs Vital signs: Vital Signs Temp 98.0 F 05/24/22 12:30 Pulse 101 H 05/24/22 12:30 Resp 22 05/24/22 12:30 BP 131/76 05/24/22 12:30 Pulse Ox 98 05/24/22 12:30 FiO2 Intake & Output 05/23/22 05/24/22 05/24/22 18:59 06:59 18:59 Intake Total 1751 810 370 Output Total 2014 3115 300 Balance -264 -2305 70 Weight 115.6 kg Intake: IV 1460 810 60 0.9 @ KVO 110 10 Cefepime 2 gm In Sodium 100 100 Chloride 0.9% 100 ml @ 25 mls/hr IVPB Q8HR [facility] Rx# :[id number] Magnesium Sulfate-D5w Pmx 300 1 gm In Dextrose/Water 1 100ml.bag @ 100 mls/hr IVPB Q1H [facility] Rx#: [id number] Sodium Chloride 0.9% 1, 560 600 50 000 ml @ 130 mls/hr IV . Q7H42M [facility] Rx#:[id number] Vancomycin 2,250 mg In 500 Sodium Chloride 0.9% 500 ml 500 ml @ 167 mls/hr IVPB Q12H [facility] Rx#: [id number] Blood Product 291 310 Platelet Pheresis Pas 291 Psoralen Unit [id number] Rc Irr As1 Unit 310 [id number] Output: Urine 2014 3115 300 Other: Voiding Method Indwelling Catheter Indwelling Catheter Indwelling Catheter # Bowel Movements 1 - Constitutional Constitutional Comment(s): Rhino-rocket in place in left nare, no active bleeding noted General appearance: Present: average body habitus, no acute distress - EENT Eyes: Present: anicteric sclerae, EOMI ENT: Present: hearing grossly normal - Respiratory Respiratory: bilateral: CTA - Cardiovascular Rhythm: regular Heart sounds: normal: S1, S2 Abnormal Heart Sounds: Absent: systolic murmur, diastolic murmur, rub, S3 Gallop, S4 Gallop, click, other - Integumentary Integumentary Comment(s): bruising to face Integumentary: Present: pale - Neurologic Neurologic Comment(s): Grossly intact - Musculoskeletal Musculoskeletal: Present: strength equal bilaterally - Psychiatric Psychiatric: Present: A&O x's 3, appropriate affect, intact judgment & insight - Labs CBC & Chem 7: 05/24/22 04:14 05/24/22 04:14 Labs: Abnormal Lab Results - Last 24 Hours (Table) 05/22/22 05/24/22 05/24/22 Range/Units 00:25 04:14 04:14 WBC 0.3 L* (3.8-10.6) k/uL RBC 2.27 L (3.80-5.40) m/uL Hgb 7.0 L (11.4-16.0) gm/dL Hct 19.1 L* (34.0-46.0) % Plt Count 9 L* (150-450) k/uL Sodium 133 L (137-145) mmol/L Potassium 3.3 L (3.5-5.1) mmol/L BUN 6 L (7-17) mg/dL Creatinine 0.33 L (0.52-1.04) mg/dL Glucose 132 H (74-99) mg/dL Calcium 7.5 L (8.4-10.2) mg/dL Total Protein 5.4 L (6.3-8.2) g/dL Albumin 2.7 L (3.5-5.0) g/dL Crossmatch See Detail Microbiology - Last 24 Hours (Table) 05/22/22 08:05 Blood Culture - Preliminary Blood No Growth after 48 hours 05/23/22 05:07 Blood Culture - Preliminary Blood No Growth after 24 hours 05/23/22 05:07 Blood Culture - Preliminary Blood No Growth after 24 hours 05/22/22 05:09 Blood Culture - Preliminary Blood No Growth after 48 hours 05/21/22 22:51 Blood Culture Gram Stain - Preliminary Blood Blood Culture - Preliminary Gram Neg Bacilli 05/21/22 22:49 Blood Culture Gram Stain - Preliminary Blood Blood Culture - Preliminary Klebsiella pneumoniae Assessment and Plan (1) Neutropenic fever Current Visit: Yes Status: Acute Code(s): D70.9 - NEUTROPENIA, UNSPECIFIED; R50.81 - FEVER PRESENTING WITH CONDITIONS CLASSIFIED ELSEWHERE SNOMED Code(s): 809617957 (2) Acute myeloid leukemia Current Visit: Yes Status: Chronic Priority: High Code(s): C92.00 - ACUTE MYELOBLASTIC LEUKEMIA, NOT HAVING ACHIEVED REMISSION SNOMED Code(s): 10894884 Plan: Neutropenic fever -She received HiDAC and gemtuzumab consolidative chemotherapy the week of 05/10/2022 to 05/14/2022 and subsequently received Neulasta on 05/15/2022. WBC 0.3 tod ay[address] Bradley her oncologist at [facility] and he recommended not to give granix at this time -She was noted to have fever on 05/21/2022 with no other localizing signs or symptoms -Chest x-ray reveals no acute process concerning for infection -Blood cultures from admission are positive from Klebsiella pneumonia, which is likely due to translocation from the gut given recent HiDAC chemotherapy -She continues on empiric cefepime. ID consulted -Will continue to monitor counts Core binding factor AML -Received 7+3 induction chemotherapy in December 2021 -This was complicated by subdural and subarachnoid hemorrhage along with seizures -Repeat bone marrow biopsy in February 2022 revealed complete remission -She was evaluated at [facility] and given her translocation (8;21) she was determined to be a candidate for consolidative chemotherapy as opposed to proceeding with allogenic stem cell transplant -She received cycle 1 of HiDAC and gemtuzumab on 05/10/2022 and was discharged on 05/14/2022. She received Neulasta on 05/15/2022 -She likely has pancytopenia that is chemotherapy-induced along with superimposed Klebsiella pneumoniae bacteremia. -DIC workup ordered -Transfuse for hemoglobin less than 7 and/or platelet count less than 20,000 due to her history of intracranial hemorrhage -1 unit of pheresis platelets and PRBCs ordered today for platelet count of 9,000 and hemoglobin 7.0 attests: I have performed H&P and developed impression and plan of care for patient, discussed with dictator. I agree with dictated note, documented as a scribe
[2022-05-24 15:52] LABS: INR 0.9 (<1.2); Partial Thromboplastin Time 24.5 sec (22.0-30.0); Prothrombin Time 9.9 sec (9.0-12.0)
--- NOTE | 2022-05-24 16:40 | P.PN ---
Subjective Progress Note Date: 05/24/22 Principal diagnosis: Epistaxis after nasal trauma Patient underwent nasal packing Tuesday and she's had no bleeding since the nasal packing on the left side. I deflated the pack this morning she's had no bleeding since the pack was deflated therefore removal is recommended. Objective - Vital Signs Vital signs: Vital Signs Temp 99.1 F 05/24/22 15:59 Pulse 109 H 05/24/22 15:59 Resp 22 05/24/22 15:59 BP 123/77 05/24/22 15:59 Pulse Ox 100 05/24/22 15:59 FiO2 Intake & Output 05/23/22 05/24/22 05/24/22 18:59 06:59 18:59 Intake Total 1751 810 370 Output Total 2014 3115 300 Balance -264 -2305 70 Weight 115.6 kg Intake: IV 1460 810 60 0.9 @ KVO 110 10 Cefepime 2 gm In Sodium 100 100 Chloride 0.9% 100 ml @ 25 mls/hr IVPB Q8HR [facility] Rx# :[id number] Magnesium Sulfate-D5w Pmx 300 1 gm In Dextrose/Water 1 100ml.bag @ 100 mls/hr IVPB Q1H [facility] Rx#: [id number] Sodium Chloride 0.9% 1, 560 600 50 000 ml @ 130 mls/hr IV . Q7H42M [facility] Rx#:[id number] Vancomycin 2,250 mg In 500 Sodium Chloride 0.9% 500 ml 500 ml @ 167 mls/hr IVPB Q12H [facility] Rx#: [id number] Blood Product 291 310 Platelet Pheresis Pas 291 Psoralen Unit [id number] Rc Irr As1 Unit 310 [id number] Output: Urine 2014 3115 300 Other: Voiding Method Indwelling Catheter Indwelling Catheter Indwelling Catheter # Bowel Movements 1 - Constitutional General appearance: Present: obese - EENT EENT Comment(s): Left nasal pack removed no bleeding encountered. Facial bruising noted lip swelling noted Eyes: Present: PERRLA ENT: Present: hearing grossly normal, normal oropharynx - Neck Neck: Present: normal ROM - Musculoskeletal Musculoskeletal: Present: generalized weakness - Psychiatric Psychiatric: Present: A&O x's 3 - Labs CBC & Chem 7: 05/24/22 04:14 05/24/22 04:14 Labs: Abnormal Lab Results - Last 24 Hours (Table) 05/22/22 05/24/22 05/24/22 Range/Units 00:25 04:14 04:14 WBC 0.3 L* (3.8-10.6) k/uL RBC 2.27 L (3.80-5.40) m/uL Hgb 7.0 L (11.4-16.0) gm/dL Hct 19.1 L* (34.0-46.0) % Plt Count 9 L* (150-450) k/uL Fibrinogen (200-500) mg/dL Sodium 133 L (137-145) mmol/L Potassium 3.3 L (3.5-5.1) mmol/L BUN 6 L (7-17) mg/dL Creatinine 0.33 L (0.52-1.04) mg/dL Glucose 132 H (74-99) mg/dL Calcium 7.5 L (8.4-10.2) mg/dL Total Protein 5.4 L (6.3-8.2) g/dL Albumin 2.7 L (3.5-5.0) g/dL Crossmatch See Detail 05/24/22 Range/Units 14:46 WBC (3.8-10.6) k/uL RBC (3.80-5.40) m/uL Hgb (11.4-16.0) gm/dL Hct (34.0-46.0) % Plt Count (150-450) k/uL Fibrinogen 647 H (200-500) mg/dL Sodium (137-145) mmol/L Potassium (3.5-5.1) mmol/L BUN (7-17) mg/dL Creatinine (0.52-1.04) mg/dL Glucose (74-99) mg/dL Calcium (8.4-10.2) mg/dL Total Protein (6.3-8.2) g/dL Albumin (3.5-5.0) g/dL Crossmatch Microbiology - Last 24 Hours (Table) 05/21/22 22:51 Blood Culture Gram Stain - Final Blood Blood Culture - Final Klebsiella pneumoniae 05/21/22 22:49 Blood Culture Gram Stain - Final Blood Blood Culture - Final Klebsiella pneumoniae 05/22/22 08:05 Blood Culture - Preliminary Blood No Growth after 48 hours 05/23/22 05:07 Blood Culture - Preliminary Blood No Growth after 24 hours 05/23/22 05:07 Blood Culture - Preliminary Blood No Growth after 24 hours 05/22/22 05:09 Blood Culture - Preliminary Blood No Growth after 48 hours Assessment and Plan (1) Facial trauma Current Visit: Yes Status: Acute Code(s): S09.93XA - UNSPECIFIED INJURY OF FACE, INITIAL ENCOUNTER SNOMED Code(s): 810425256 (2) Epistaxis due to trauma Current Visit: Yes Status: Acute Code(s): R04.0 - EPISTAXIS SNOMED Code(s): 879334490 (3) Lip laceration Current Visit: Yes Status: Acute Code(s): S01.511A - LACERATION WITHOUT FOREIGN BODY OF LIP, INITIAL ENCOUNTER SNOMED Code(s): 508584610 (4) Deviated nasal septum Current Visit: Yes Status: Acute Code(s): J34.2 - DEVIATED NASAL SEPTUM SNOMED Code(s): 934207960 Plan: Left nasal packing removed and no bleeding was encountered. Nursing staff is to contact me if bleeding should resume. Patient is not to blow her nose for the next 3 days. Please reconsult me if any further issues occur. I will no longer be following this patient during her hospital course. Time with Patient: Greater than 30
[2022-05-24] MEDS: PANTOPRAZOLE 40 MG TABLET PO SCH (21:00)
[2022-05-24] MEDS: ACETAMINOPHEN TAB 325 MG TAB PO PRN (21:01)
--- NOTE | 2022-05-24 21:18 | P.PN ---
Subjective Progress Note Date: 05/24/22 Principal diagnosis: Febrile neutropenia and bacteremia Patient is a 66-year-old female past medical history significant for acute myeloid leukemia CVA TIA seizure disorder last chemo on May 14, 2022 patient presented to the hospital 05/22/2022 because of the fever , patient did have a fall in hospital with significant epistaxis and bruising to the face area, blood cultures coming back positive with Klebsiella On today's evaluation that is 05/24/2022, the patient is afebrile today, the patient is breathing comfortably on room air, the patient denies further epist axis and no chest pain shortness of breath or cough no abdominal pain or diarrhea has been reported Objective - Vital Signs Vital signs: Vital Signs Temp 98.0 F 05/24/22 12:30 Pulse 101 H 05/24/22 12:30 Resp 22 05/24/22 12:30 BP 131/76 05/24/22 12:30 Pulse Ox 98 05/24/22 12:30 FiO2 Intake & Output 05/23/22 05/24/22 05/24/22 18:59 06:59 18:59 Intake Total 1751 810 370 Output Total 2014 3115 300 Balance -264 2300 70 Weight 115.6 kg Intake: IV 1460 810 60 0.9 @ KVO 110 10 Cefepime 2 gm In Sodium 100 100 Chloride 0.9% 100 ml @ 25 mls/hr IVPB Q8HR [facility] Rx# :[id number] Magnesium Sulfate-D5w Pmx 300 1 gm In Dextrose/Water 1 100ml.bag @ 100 mls/hr IVPB Q1H [facility] Rx#: [id number] Sodium Chloride 0.9% 1, 560 600 50 000 ml @ 130 mls/hr IV . Q7H42M [facility] Rx#:[id number] Vancomycin 2,250 mg In 500 Sodium Chloride 0.9% 500 ml 500 ml @ 167 mls/hr IVPB Q12H [facility] Rx#: [id number] Blood Product 291 310 Platelet Pheresis Pas 291 Psoralen Unit [id number] Rc Irr As1 Unit 310 [id number] Output: Urine 2014 3115 300 Other: Voiding Method Indwelling Catheter Indwelling Catheter Indwelling Catheter # Bowel Movements 1 - Exam GENERAL DESCRIPTION: An elderly female up in the chair in no distress RESPIRATORY SYSTEM: Unlabored breathing , decreased breath sounds at bases HEART: S1 S2 regular rate and rhythm , ABDOMEN: Soft , no tenderness EXTREMITIES: No edema feet - Labs CBC & Chem 7: 05/24/22 04:14 05/24/22 04:14 Labs: Abnormal Lab Results - Last 24 Hours (Table) 05/22/22 05/24/22 05/24/22 Range/Units 00:25 04:14 04:14 WBC 0.3 L* (3.8-10.6) k/uL RBC 2.27 L (3.80-5.40) m/uL Hgb 7.0 L (11.4-16.0) gm/dL Hct 19.1 L* (34.0-46.0) % Plt Count 9 L* (150-450) k/uL Sodium 133 L (137-145) mmol/L Potassium 3.3 L (3.5-5.1) mmol/L BUN 6 L (7-17) mg/dL Creatinine 0.33 L (0.52-1.04) mg/dL Glucose 132 H (74-99) mg/dL Calcium 7.5 L (8.4-10.2) mg/dL Total Protein 5.4 L (6.3-8.2) g/dL Albumin 2.7 L (3.5-5.0) g/dL Crossmatch See Detail Microbiology - Last 24 Hours (Table) 05/22/22 08:05 Blood Culture - Preliminary Blood No Growth after 48 hours 05/23/22 05:07 Blood Culture - Preliminary Blood No Growth after 24 hours 05/23/22 05:07 Blood Culture - Preliminary Blood No Growth after 24 hours 05/22/22 05:09 Blood Culture - Preliminary Blood No Growth after 48 hours 05/21/22 22:51 Blood Culture Gram Stain - Preliminary Blood Blood Culture - Preliminary Gram Neg Bacilli 05/21/22 22:49 Blood Culture Gram Stain - Preliminary Blood Blood Culture - Preliminary Klebsiella pneumoniae Assessment and Plan (1) Febrile neutropenia Current Visit: Yes Status: Acute Code(s): D70.9 - NEUTROPENIA, UNSPECIFIED; R50.81 - FEVER PRESENTING WITH CONDITIONS CLASSIFIED ELSEWHERE SNOMED Code(s): 472501153 (2) Bacteremia Current Visit: Yes Status: Acute Code(s): R78.81 - BACTEREMIA SNOMED Code(s): 3038939 Plan: 1-Patient presented to hospital with fever in this patient who did have history of acute myeloid leukemia on chemotherapy with a recent PICC line replacement for nonworking PICC line in this patient initial work-up including chest x-ray UA has been negative abdominal soft on clinical examination concern for possible PICC line infection,patient did have a fall with injury to the face no evidence of any fracture 2-patient blood culture has been finalized as Klebsiella patient to continue with the cefepime while waiting for repeat culture finalized Time with Patient: Less than 30
[2022-05-25] MEDS: CEFEPIME 2 GM in SODIUM CHLORIDE 0.9% 100 ML IVPB SCH ×4 (00:11→23:56)
[2022-05-25] MEDS: SODIUM CHLORIDE 0.9% 1,000 ML IV SCH ×2 (04:27→20:10)
[2022-05-25 04:39] LABS: HGB 7.8 gm/dL (11.4-16.0); Hyperchromasia Moderate; MCH 30.9 pg (25.0-35.0); MCHC 37.2 g/dL (31.0-37.0); Mean Platelet Volume 9.3; Poikilocytosis Slight; RBC 2.53 m/uL (3.80-5.40); RDW 13.4 % (11.5-15.5)
[2022-05-25 04:45] LABS: Platelet Count 8 k/uL (150-450); WBC 0.3 k/uL (3.8-10.6)
[2022-05-25 04:57] LABS: ALT 26 U/L (4-34); AST 27 U/L (14-36); African American GFR (CKD) >90 (>60 ml/min/1.73 sqM); Albumin 2.8 g/dL (3.5-5.0); Alkaline Phosphatase 76 U/L (38-126); Anion Gap 5 mmol/L; Blood Urea Nitrogen 8 mg/dL (7-17); Calcium 7.6 mg/dL (8.4-10.2); Carbon Dioxide 24 mmol/L (22-30); Chloride 101 mmol/L (98-107); Glucose 132 mg/dL (74-99); Magnesium 1.5 mg/dL (1.6-2.3); Non-African American GFR(CKD) >90 (>60 ml/min/1.73 sqM); Potassium 3.6 mmol/L (3.5-5.1); Sodium 130 mmol/L (137-145); Total Bilirubin 1.1 mg/dL (0.2-1.3); Total Protein 5.5 g/dL (6.3-8.2)
[2022-05-25] MEDS ORDERED: Magnesium Replacement Protocol 1 EACH MISC MISCELLANE PRN (05:26)
[2022-05-25] MEDS ORDERED: POTASSIUM CHLORIDE ER 20 MEQ TAB.ER PO SCH (06:00)
[2022-05-25] MEDS: MAGNESIUM SULFATE-D5W PMX 1 GM in DEXTROSE/WATER 1 100ML.BAG IVPB SCH ×2 (06:09→08:28)
[2022-05-25] MEDS: LACOSAMIDE 50 MG TABLET PO SCH ×2 (08:46→20:09)
[2022-05-25] MEDS: MAGNESIUM OXIDE 400 MG TAB PO SCH (08:47)
[2022-05-25] MEDS: PHENYTOIN SODIUM EXTENDED 100 MG CAP PO SCH ×3 (08:47→20:10)
--- NOTE | 2022-05-25 09:07 | P.PN ---
Subjective Progress Note Date: 05/25/22 66-year-old female with history of acute myelocytic leukemia. The patient has had recent chemotherapy, the last one being on May 14. The patient came into the hospital because of fever. He was found to be pancytopenic. She was admitted with possible neutropenic sepsis. I was called by the hospital service, because the patient apparently fell while getting out of bed, injuring her facial area, with significant swelling to the left, and epistaxis. Facial computed tomography scan and brain CT scans were negative. The patient was placed on vancomycin and cefepime. He receiving IV fluids. Despite that, her blood pressures are little soft. Initially we saw her, and she looked relatively stable and we thought she could stay on the floor but more recently, her blood pressure continues to drop despite 1-1/2 L of fluid. That reason she'll be transferred to the intensive care unit for further monitoring and management. She does have a history of type 2 diabetes mellitus, and she is obese. She is on room air. White count 0.1, hemoglobin 10.8, hematocrit 30.8, and platelet count 5000. Sodium 136, potassium 3.8, chlorides 103, CO2 21, anion gap 12, BUN 14, creatinine 0.42. Lactic acid was 5.7. Calcium 8.3. Urine had some blood in it. No obvious infection. Testing for influenza A and B, RSV, and coronavirus were all negative. Chest x-ray was normal. Progress note dated 05/23/2022. This is a 66-year-old female with history of acute myelocytic leukemia. She recently had chemotherapy, and came into the hospital with possible neutropenic sepsis with fever. She was placed on broad-spectrum antibiotics. Because of hypotension, she was moved to the intensive care unit. In addition, she fell out of bed, and injured her facial area, and had significant epistaxis, that re quired nasal packing on the left, by ear nose and throat physician. Currently, she seen and appears comfortable. He is in room 264. She's not receiving any supplemental oxygen. She's getting saline at 130 mL an hour. She continues on vancomycin and cefepime empirically. White count is 0.2, hemoglobin 7.4, hematocrit 19.7, and platelet count 11,000. Sodium 134, potassium 3.6, chlorides 111, CO2 20, BUN 13, creatinine 0.33. Blood cultures are showing evidence of gram-negative bacilli, and has been identified as Klebsiella pneumoniae. Sensitivities are pending. Progress note dated 05/24/2022. 66-year-old female seen again in room 264. She has a history of acute myelocytic leukemia, status post 2 rounds of chemotherapy, the last on May 14. Subsequent to that, she developed severe pancytopenia, with fever, and possible neutropenic sepsis. Blood cultures did reveal evidence of Klebsiella pneumoniae. She's currently on cefepime. She's received 1 unit of packed red blood cells, and 3 units of platelets since being here in the hospital. She's on room air. She's getting saline at 50 mL an hour. She fell getting out of bed, and traumatized her facial area. She had a significant epistaxis that required nasal packing by otolaryngology. White count 0.3, hemoglobin 7, gila tocrit 19.1, and platelet count 9000. The rest of the labs are pending today. On today's evaluation of 05/25/2022, the patient is being seen for a follow-up. This is a case of AML and the patient has received systemic chemotherapy with HiDAC and gemtuzumab. The patient is currently pancytopenic. She was admitted with neutropenic fever, and the patient do not to be septic with Klebsiella pneumonia that was cultured in her blood. The chest x-ray that was done on 05/21/2022 showed no acute abnormalities. The patient currently is covered with IV antibiotics pH is on IV cefepime 2 g every 8 hours. She is hemodynamically stable on no pressors. IV fluids are running at 0.9 at the rate of 50 mL an hour. She had a low-grade fever earlier this morning with a temperature of 100.1. Currently she is afebrile. She is on room air oxygen. She is pancytopenic still. Her hemoglobin is at 7.8. The white cell count is at 0.3 and a platelet count is at 8 and the patient is going to receive platelet transfusion today. She also had a fall that resulted into significant epistaxis that required nasal packing. No active bleeding at this point in time. The packing is removed. Sodium is at 1:30, BUN is at 8 with a creatinine of 0.3. Objective - Vital Signs Vital signs: Vital Signs Temp 100.1 F H 05/25/22 04:00 Pulse 98 05/25/22 04:00 Resp 19 05/25/22 00:18 BP 130/72 05/25/22 04:00 Pulse Ox 94 L 05/25/22 04:00 FiO2 Intake & Output 05/24/22 05/25/22 05/25/22 18:59 06:59 18:59 Intake Total 990 724 Output Total 1175 3000 Balance -185 -2276 Weight 111.8 kg Intake: IV 680 370 0.9 @ KVO 80 70 Sodium Chloride 0.9% 1, 600 300 000 ml @ 50 mls/hr IV . Q20H [facility] Rx#:[id number] Blood Product 310 354 Platelet Pheresis Pas 354 Psoralen Unit [id number] Rc Irr As1 Unit 310 [id number] Output: Urine 1175 3000 Other: Voiding Method Indwelling Catheter Indwelling Catheter - Exam No acute distress, oriented 3. No respiratory distress. Currently on room air. HEENT examination is grossly unremarkable. Epistaxis noted. Significant ecchymoses of the upper lip. Nasal packing removed Neck supple. Full range of motion. No adenopathy thyromegaly or neck vein distention. Cardiovascular examination reveals regular rhythm rate. S1-S2 normal. No S3 or S4. No discernible murmur noted. Lungs reveal clear breath sounds. Breath sounds are equal bilaterally. No adventitious lung sounds including wheezes rhonchi or crackles. Abdomen soft bowel sounds are heard. No masses or tenderness. Extremities are intact. No cyanosis clubbing or edema. Skin is without rash or lesion. Neurologic examination is brief but nonfocal. - Labs CBC & Chem 7: 05/25/22 03:59 05/25/22 03:59 Labs: Abnormal Lab Results - Last 24 Hours (Table) 05/22/22 05/24/22 05/25/22 Range/Units 00:25 14:46 03:59 WBC 0.3 L* (3.8-10.6) k/uL RBC 2.53 L (3.80-5.40) m/uL Hgb 7.8 L (11.4-16.0) gm/dL Hct 21.0 L (34.0-46.0) % MCHC 37.2 H (31.0-37.0) g/dL Plt Count 8 L* (150-450) k/uL Fibrinogen 647 H (200-500) mg/dL Sodium (137-145) mmol/L Creatinine (0.52-1.04) mg/dL Glucose (74-99) mg/dL Calcium (8.4-10.2) mg/dL Magnesium (1.6-2.3) mg/dL Total Protein (6.3-8.2) g/dL Albumin (3.5-5.0) g/dL Crossmatch See Detail 05/25/22 Range/Units 03:59 WBC (3.8-10.6) k/uL RBC (3.80-5.40) m/uL Hgb (11.4-16.0) gm/dL Hct (34.0-46.0) % MCHC (31.0-37.0) g/dL Plt Count (150-450) k/uL Fibrinogen (200-500) mg/dL Sodium 130 L (137-145) mmol/L Creatinine 0.31 L (0.52-1.04) mg/dL Glucose 132 H (74-99) mg/dL Calcium 7.6 L (8.4-10.2) mg/dL Magnesium 1.5 L (1.6-2.3) mg/dL Total Protein 5.5 L (6.3-8.2) g/dL Albumin 2.8 L (3.5-5.0) g/dL Crossmatch Microbiology - Last 24 Hours (Table) 05/23/22 05:07 Blood Culture - Preliminary Blood No Growth after 48 hours 05/23/22 05:07 Blood Culture - Preliminary Blood No Growth after 48 hours 05/22/22 05:09 Blood Culture - Preliminary Blood No Growth after 72 hours 05/21/22 22:51 Blood Culture Gram Stain - Final Blood Blood Culture - Final Klebsiella pneumoniae 05/21/22 22:49 Blood Culture Gram Stain - Final Blood Blood Culture - Final Klebsiella pneumoniae 05/22/22 08:05 Blood Culture - Preliminary Blood No Growth after 48 hours Assessment and Plan Plan: Sepsis secondary to Klebsiella pneumoniae. The patient was neutropenic post systemic treatment for AML. Patient currently on IV cefepime. Last temperature spike was earlier this morning with a T-max of 100.1. Hemodynamically stable. Neutropenic fever at the time of admission, confirmed to be septic Hypotension, the time of admission and this has recovered and the patient is currently normotensive History of acute myelocytic leukemia, status post chemotherapy, 2, most recently on 05/14/2022. HiDAC and gemtuzumab S/P fall, with facial trauma, and epistaxis. The nasal packing has been removed Pancytopenia. History of CVA. History of seizure disorder. History of neuropathy. Type 2 diabetes. History of gastric ulcer. Lifelong nonsmoker. Plan Continue IV cefepime Nasal packing is removed Transfuse with platelets per hematology recommendation Monitor fever pattern Hemodynamically stable Monitor hematologic profile The patient will be transferred to 3 S or oncology Remove Gongora catheter
--- NOTE | 2022-05-25 12:44 | P.PN ---
Subjective Progress Note Date: 05/25/22 Principal diagnosis: neutropenic fever, hx AML At today's visit patient is resting comfortably in bed. Nasal packing removed, pt reports scant bleeding from left nare. ed. Patient denies nausea vomiting diarrhea. Temperature was 100.1 this morning. She denies pain at this time. Platelets 8,000 today, additional unit platelets ordered. No other reported complaints Objective - Vital Signs Vital signs: Vital Signs Temp 99.5 F 05/25/22 11:31 Pulse 89 05/25/22 11:31 Resp 17 05/25/22 11:31 BP 132/77 05/25/22 11:31 Pulse Ox 98 05/25/22 11:31 FiO2 Intake & Output 05/24/22 05/25/22 05/25/22 18:59 06:59 18:59 Intake Total 990 724 280 Output Total 1175 3000 Balance -185 -2276 280 Weight 111.8 kg Intake: IV 680 370 0.9 @ KVO 80 70 Sodium Chloride 0.9% 1, 600 300 000 ml @ 50 mls/hr IV . Q20H [facility] Rx#:[id number] Blood Product 310 354 280 Platelet Pheresis Pas 354 Psoralen Unit [id number] Platelet Pheresis Pas 280 Psoralen Unit [id number] Rc Irr As1 Unit 310 [id number] Output: Urine 1175 3000 Other: Voiding Method Indwelling Catheter Indwelling Catheter - Constitutional General appearance: Present: average body habitus, no acute distress - EENT EENT Comment(s): no acute epistaxis noted Eyes: Present: anicteric sclerae, EOMI ENT: Present: hearing grossly normal - Respiratory Details: Breathing even and unlabored - Cardiovascular Details: Skin is warm and dry - Integumentary Integumentary: Present: pale - Neurologic Neurologic Comment(s): Grossly intact - Musculoskeletal Musculoskeletal: Present: generalized weakness - Psychiatric Psychiatric: Present: A&O x's 3, appropriate affect, intact judgment & insight - Labs CBC & Chem 7: 05/25/22 03:59 05/25/22 03:59 Labs: Abnormal Lab Results - Last 24 Hours (Table) 05/22/22 05/24/22 05/25/22 Range/Units 00:25 14:46 03:59 WBC 0.3 L* (3.8-10.6) k/uL RBC 2.53 L (3.80-5.40) m/uL Hgb 7.8 L (11.4-16.0) gm/dL Hct 21.0 L (34.0-46.0) % MCHC 37.2 H (31.0-37.0) g/dL Plt Count 8 L* (150-450) k/uL Fibrinogen 647 H (200-500) mg/dL Sodium (137-145) mmol/L Creatinine (0.52-1.04) mg/dL Glucose (74-99) mg/dL Calcium (8.4-10.2) mg/dL Magnesium (1.6-2.3) mg/dL Total Protein (6.3-8.2) g/dL Albumin (3.5-5.0) g/dL Crossmatch See Detail 05/25/22 Range/Units 03:59 WBC (3.8-10.6) k/uL RBC (3.80-5.40) m/uL Hgb (11.4-16.0) gm/dL Hct (34.0-46.0) % MCHC (31.0-37.0) g/dL Plt Count (150-450) k/uL Fibrinogen (200-500) mg/dL Sodium 130 L (137-145) mmol/L Creatinine 0.31 L (0.52-1.04) mg/dL Glucose 132 H (74-99) mg/dL Calcium 7.6 L (8.4-10.2) mg/dL Magnesium 1.5 L (1.6-2.3) mg/dL Total Protein 5.5 L (6.3-8.2) g/dL Albumin 2.8 L (3.5-5.0) g/dL Crossmatch Microbiology - Last 24 Hours (Table) 05/22/22 08:05 Blood Culture - Preliminary Blood No Growth after 72 hours 05/23/22 05:07 Blood Culture - Preliminary Blood No Growth after 48 hours 05/23/22 05:07 Blood Culture - Preliminary Blood No Growth after 48 hours 05/22/22 05:09 Blood Culture - Preliminary Blood No Growth after 72 hours 05/21/22 22:51 Blood Culture Gram Stain - Final Blood Blood Culture - Final Klebsiella pneumoniae 05/21/22 22:49 Blood Culture Gram Stain - Final Blood Blood Culture - Final Klebsiella pneumoniae Assessment and Plan (1) Neutropenic fever Current Visit: Yes Status: Acute Code(s): D70.9 - NEUTROPENIA, UNSPECIFIED; R50.81 - FEVER PRESENTING WITH CONDITIONS CLASSIFIED ELSEWHERE SNOMED Code(s): 537441277 (2) Acute myeloid leukemia Current Visit: Yes Status: Chronic Priority: High Code(s): C92.00 - ACUTE MYELOBLASTIC LEUKEMIA, NOT HAVING ACHIEVED REMISSION SNOMED Code(s): 88206275 Plan: Neutropenic fever -She received HiDAC and gemtuzumab consolidative chemotherapy the week of 05/10/2022 to 05/14/2022 and subsequently received Neulasta on 05/15/2022. WBC 0.[address]. [address] Bradley her oncologist at [facility] and he recommended not to give granix at this time due to neulasta being given on 05/15. If patient remains neutropenic, will start granix tomorrow for WBC support. -She was noted to have fever on 05/21/2022 with no other localizing signs or symptoms -Chest x-ray reveals no acute process concerning for infection -Blood cultures from admission are positive from Klebsiella pneumonia, which is likely due to translocation from the gut given recent HiDAC chemotherapy -She continues on empiric cefepime. ID consulted -Will continue to monitor counts Core binding factor AML -Received 7+3 induction chemotherapy in December 2021 -This was complicated by subdural and subarachnoid hemorrhage along with seizures -Repeat bone marrow biopsy in February 2022 revealed complete remission -She was evaluated at [facility] and given her translocation (8;21) she was determined to be a candidate for consolidative chemotherapy as opposed to proceeding with allogenic stem cell transplant -She received cycle 1 of HiDAC and gemtuzumab on 05/10/2022 and was discharged on 05/14/2022. She received Neulasta on 05/15/2022 -She likely has pancytopenia that is chemotherapy-induced along with superimposed Klebsiella pneumoniae bacteremia. -DIC workup ordered -Transfuse for hemoglobin less than 7 and/or platelet count less than 20,000 due to her history of intracranial hemorrhage -Platelets 8,000 today, 1 unit of pheresis platelets ordered. Hemoglobin 7.8.
--- NOTE | 2022-05-25 13:55 | P.PN ---
Subjective Progress Note Date: 06/01/22 patient is 66-year-old lady with past medical significant for acute myeloid leukemia who presented to the ER because of fevers. Patient normally receives chemotherapy at [facility] with her last session being last week. Patient had a PICC line placed yesterday and received platelet transfusion, following that she started noticing fevers. There was no complain of shortness of breath. No complaint of any cough. Because of fever she became concerned and came to the ER, initial workup in the ER showed white count of 0.2, hemoglobin 11.3, platelet count 10, sodium 137, potassium 4.4, chloride 103, BUN 15, creatinine 0.4, lactic acid level initially was 2.4. Initial chest x-ray was negative for acute cardiac pulmonary process. Patient was started on broad- spectrum antibiotic and was admitted to internal medicine team. While in the floor patient had a fall, receiving trauma to her face.CT face as as well as CT head and neck showed no acute intrarenal process, no evidence of cervical spine fracture, no acute facial bone fractures., Did show soft tissue hematoma anterior to the maxilla with partial opacification of the left nasal cavity. Patient was having episodes of hypotension, patient received adequate fluid resuscitation but was still hypotensive so was transferred to ICU. 05/23. Patient seen and examined. White count this morning is 0.2, hemoglobin 7.4, platelet count 11k, sodium 134, potassium 3.6,. Vital signs morning are temperature 97.8, heart rate 88, blood pressure 126/67, on room air. No further episodes of epistaxis, nasal packing in place 05/24. Patient seen and examined. No acute overnight. Denies any epistaxis. White count today is 0.3, hemoglobin 7, platelet count 9. Potassium this morning is 3.3. Patient being transfused another unit of platelets and packed red blood cell 05/25. Patient seen and examined. T-max of 100.1 overnight, heart rate 98, blood pressure 130/72, room air. White count this morning is 0.3, hemoglobin 7.8, platelet count 8. Patient had nasal pack removed yesterday. Patient being transfused another unit of platelets. Some oozing of serous fluid seen from the nose, no stiven bleeding REVIEW OF SYSTEMS: CONSTITUTIONAL: No fever, no malaise,. CARDIOVASCULAR: No chest pain, no palpitations, PULMONARY: No shortness of breath, GASTROINTESTINAL: No diarrhea, no nausea, no vomiting, no abdominal pain. NEUROLOGICAL: No headaches, no weakness, PHYSICAL EXAMINATION: GENERAL: The patient is alert and oriented x3, not in any acute distress. Well developed, well nourished. Facial trauma noticeable, bruising around her nose and eyes HEENT: Pupils are round and equally reacting to light. EOMI. No scleral icterus. No pharyngeal erythema. No thyromegaly. CARDIOVASCULAR: S1 and S2 present. No murmurs, rubs, or gallops. PULMONARY: Chest is clear to auscultation, no wheezing or crackles. ABDOMEN: Soft, nontender, nondistended, normoactive bowel sounds. No palpable organomegaly. MUSCULOSKELETAL: No joint swelling or deformity. EXTREMITIES: No cyanosis, clubbing, or pedal edema. NEUROLOGICAL: Gross neurological examination did not reveal any focal deficits. SKIN: No rashes. Assessment and plan Neutropenic fever Sepsis Gram Negative bacteremia Facial trauma Epistaxis History of acute myelocytic leukemia, status post chemotherapy, 2, most recently on 05/14/2022. Pancytopenia. History of CVA. History of seizure disorder. History of neuropathy. Type 2 diabetes. History of gastric ulcer. Lifelong nonsmoker. Plan; Monitor vital signs Monitor CBC -Transfuse for hemoglobin less than 7 and/or platelet count less than 20,000 due to her history of intracranial hemorrhage. Follow-up on blood cultures, blood culture showing gram-negative bacilli, Klebsiella pneumonia Continue IV fluid Continue IV cefepime ENT consulted for epistaxis, patient received posterior nasal packing which was removed on 05/24 ICU on board Follow-up on ID recommendations Hematology oncology following, transfusing another unit of platelets Patient being transferred out of ICU Objective - Vital Signs Vital signs: Vital Signs Temp 99.5 F 05/25/22 08:00 Pulse 98 05/25/22 08:00 Resp 19 05/25/22 00:18 BP 134/81 05/25/22 08:00 Pulse Ox 97 05/25/22 08:00 FiO2 Intake & Output 05/24/22 05/25/22 05/25/22 18:59 06:59 18:59 Intake Total 990 724 0 Output Total 1175 3000 Balance -185 -1826 0 Weight 111.8 kg Intake: IV 680 370 0.9 @ KVO 80 70 Sodium Chloride 0.9% 1, 600 300 000 ml @ 50 mls/hr IV . Q20H [facility] Rx#:[id number] Blood Product 310 354 0 Platelet Pheresis Pas 354 Psoralen Unit [id number] Platelet Pheresis Pas 0 Psoralen Unit [id number] Rc Irr As1 Unit 310 [id number] Output: Urine 1175 3000 Other: Voiding Method Indwelling Catheter Indwelling Catheter - Labs CBC & Chem 7: 05/25/22 03:59 05/25/22 03:59 Labs: Abnormal Lab Results - Last 24 Hours (Table) 05/22/22 05/24/22 05/25/22 Range/Units 00:25 14:46 03:59 WBC 0.3 L* (3.8-10.6) k/uL RBC 2.53 L (3.80-5.40) m/uL Hgb 7.8 L (11.4-16.0) gm/dL Hct 21.0 L (34.0-46.0) % MCHC 37.2 H (31.0-37.0) g/dL Plt Count 8 L* (150-450) k/uL Fibrinogen 647 H (200-500) mg/dL Sodium (137-145) mmol/L Creatinine (0.52-1.04) mg/dL Glucose (74-99) mg/dL Calcium (8.4-10.2) mg/dL Magnesium (1.6-2.3) mg/dL Total Protein (6.3-8.2) g/dL Albumin (3.5-5.0) g/dL Crossmatch See Detail 05/25/22 Range/Units 03:59 WBC (3.8-10.6) k/uL RBC (3.80-5.40) m/uL Hgb (11.4-16.0) gm/dL Hct (34.0-46.0) % MCHC (31.0-37.0) g/dL Plt Count (150-450) k/uL Fibrinogen (200-500) mg/dL Sodium 130 L (137-145) mmol/L Creatinine 0.31 L (0.52-1.04) mg/dL Glucose 132 H (74-99) mg/dL Calcium 7.6 L (8.4-10.2) mg/dL Magnesium 1.5 L (1.6-2.3) mg/dL Total Protein 5.5 L (6.3-8.2) g/dL Albumin 2.8 L (3.5-5.0) g/dL Crossmatch Microbiology - Last 24 Hours (Table) 05/23/22 05:07 Blood Culture - Preliminary Blood No Growth after 48 hours 05/23/22 05:07 Blood Culture - Preliminary Blood No Growth after 48 hours 05/22/22 05:09 Blood Culture - Preliminary Blood No Growth after 72 hours 05/21/22 22:51 Blood Culture Gram Stain - Final Blood Blood Culture - Final Klebsiella pneumoniae 05/21/22 22:49 Blood Culture Gram Stain - Final Blood Blood Culture - Final Klebsiella pneumoniae 05/22/22 08:05 Blood Culture - Preliminary Blood No Growth after 48 hours
[2022-05-25] MEDS ORDERED: BENZOCAINE/MENTHOL LOZENG 1 EACH LOZENGE MUCOUS MEM PRN (16:07)
[2022-05-25] MEDS ORDERED: Phenol 1.4% Sore Throat Spray Bottle MUCOUS MEM PRN (16:08)
--- NOTE | 2022-05-25 19:28 | P.PN ---
Subjective Progress Note Date: 05/25/22 Principal diagnosis: Febrile neutropenia and bacteremia Patient is a 66-year-old female past medical history significant for acute myeloid leukemia CVA TIA seizure disorder last chemo on May 14, 2022 patient presented to the hospital 05/22/2022 because of the fever , patient did have a fall in hospital with significant epistaxis and bruising to the face area, blood cultures coming back positive with Klebsiella On today's evaluation that is 05/25/2022, the patient remains to be afebrile, the patient is breathing comfortably on room air, the patient denies further epistaxis, the patient denies chest pain shortness of breath or cough no abdominal pain or diarrhea has been reported Objective - Vital Signs Vital signs: Vital Signs Temp 99.5 F 05/25/22 11:31 Pulse 89 05/25/22 11:31 Resp 17 05/25/22 11:31 BP 132/77 05/25/22 11:31 Pulse Ox 98 05/25/22 11:31 FiO2 Intake & Output 05/24/22 05/25/22 05/25/22 18:59 06:59 18:59 Intake Total 990 724 280 Output Total 1175 3000 Balance -185 -2276 280 Weight 111.8 kg Intake: IV 680 370 0.9 @ KVO 80 70 Sodium Chloride 0.9% 1, 600 300 000 ml @ 50 mls/hr IV . Q20H [facility] Rx#:[id number] Blood Product 310 354 280 Platelet Pheresis Pas 354 Psoralen Unit [id number] Platelet Pheresis Pas 280 Psoralen Unit [id number] Rc Irr As1 Unit 310 [id number] Output: Urine 1175 3000 Other: Voiding Method Indwelling Catheter Indwelling Catheter - Exam GENERAL DESCRIPTION: An elderly female up in the chair in no distress RESPIRATORY SYSTEM: Unlabored breathing , decreased breath sounds at bases HEART: S1 S2 regular rate and rhythm , ABDOMEN: Soft , no tenderness EXTREMITIES: No edema feet - Labs CBC & Chem 7: 05/25/22 03:59 05/25/22 03:59 Labs: Abnormal Lab Results - Last 24 Hours (Table) 05/24/22 05/25/22 05/25/22 Range/Units 14:46 03:59 03:59 WBC 0.3 L* (3.8-10.6) k/uL RBC 2.53 L (3.80-5.40) m/uL Hgb 7.8 L (11.4-16.0) gm/dL Hct 21.0 L (34.0-46.0) % MCHC 37.2 H (31.0-37.0) g/dL Plt Count 8 L* (150-450) k/uL Fibrinogen 647 H (200-500) mg/dL Sodium 130 L (137-145) mmol/L Creatinine 0.31 L (0.52-1.04) mg/dL Glucose 132 H (74-99) mg/dL Calcium 7.6 L (8.4-10.2) mg/dL Magnesium 1.5 L (1.6-2.3) mg/dL Total Protein 5.5 L (6.3-8.2) g/dL Albumin 2.8 L (3.5-5.0) g/dL Microbiology - Last 24 Hours (Table) 05/22/22 08:05 Blood Culture - Preliminary Blood No Growth after 72 hours 05/23/22 05:07 Blood Culture - Preliminary Blood No Growth after 48 hours 05/23/22 05:07 Blood Culture - Preliminary Blood No Growth after 48 hours 05/22/22 05:09 Blood Culture - Preliminary Blood No Growth after 72 hours 05/21/22 22:51 Blood Culture Gram Stain - Final Blood Blood Culture - Final Klebsiella pneumoniae 05/21/22 22:49 Blood Culture Gram Stain - Final Blood Blood Culture - Final Klebsiella pneumoniae Assessment and Plan (1) Febrile neutropenia Current Visit: Yes Status: Acute Code(s): D70.9 - NEUTROPENIA, UNSPECIFIED; R50.81 - FEVER PRESENTING WITH CONDITIONS CLASSIFIED ELSEWHERE SNOMED Code(s): 662781274 (2) Bacteremia Current Visit: Yes Status: Acute Code(s): R78.81 - BACTEREMIA SNOMED Code(s): 1422809 Plan: 1-Patient presented to hospital with fever in this patient who did have history of acute myeloid leukemia on chemotherapy with a recent PICC line replacement for nonworking PICC line in this patient initial work-up including chest x-ray UA has been negative abdominal soft on clinical examination concern for possible PICC line infection,patient did have a fall with injury to the face no evidence of any fracture 2-patient blood culture has been finalized as Klebsiella, the patient did have a negative repeat blood cultures patient to continue with the cefepime and monitor clinical course closely Time with Patient: Less than 30
[2022-05-25] MEDS: PANTOPRAZOLE 40 MG TABLET PO SCH (20:09)
[2022-05-26 07:03] LABS: HCT 21.8 % (34.0-46.0); HGB 8.1 gm/dL (11.4-16.0); Hyperchromasia Moderate; MCH 30.9 pg (25.0-35.0); MCV 83.5 fL (80.0-100.0); Mean Platelet Volume 9.5; Poikilocytosis Slight; RDW 13.2 % (11.5-15.5)
[2022-05-26 07:09] LABS: African American GFR (CKD) >90 (>60 ml/min/1.73 sqM); Anion Gap 5 mmol/L; Blood Urea Nitrogen 9 mg/dL (7-17); Carbon Dioxide 25 mmol/L (22-30); Chloride 105 mmol/L (98-107); Glucose 127 mg/dL (74-99); Platelet Count 10 k/uL (150-450); Sodium 135 mmol/L (137-145); WBC 0.9 k/uL (3.8-10.6)
[2022-05-26 07:10] LABS: ALT 29 U/L (4-34); AST 28 U/L (14-36); Albumin 2.8 g/dL (3.5-5.0); Alkaline Phosphatase 77 U/L (38-126); Calcium 8.2 mg/dL (8.4-10.2); Magnesium 1.8 mg/dL (1.6-2.3); Non-African American GFR(CKD) >90 (>60 ml/min/1.73 sqM); Total Bilirubin 0.6 mg/dL (0.2-1.3); Total Protein 5.7 g/dL (6.3-8.2)
[2022-05-26] MEDS: CEFEPIME 2 GM in SODIUM CHLORIDE 0.9% 100 ML IVPB SCH ×3 (08:19→23:55)
[2022-05-26] MEDS: MAGNESIUM OXIDE 400 MG TAB PO SCH (08:20)
[2022-05-26] MEDS: LACOSAMIDE 50 MG TABLET PO SCH ×2 (08:20→20:47)
[2022-05-26] MEDS: PHENYTOIN SODIUM EXTENDED 100 MG CAP PO SCH ×3 (08:20→20:59)
--- NOTE | 2022-05-26 09:44 | P.PN ---
Subjective Progress Note Date: 05/26/22 66-year-old female with history of acute myelocytic leukemia. The patient has had recent chemotherapy, the last one being on May 14. The patient came into the hospital because of fever. He was found to be pancytopenic. She was admitted with possible neutropenic sepsis. I was called by the hospital service, because the patient apparently fell while getting out of bed, injuring her facial area, with significant swelling to the left, and epistaxis. Facial computed tomography scan and brain CT scans were negative. The patient was placed on vancomycin and cefepime. He receiving IV fluids. Despite that, her blood pressures are little soft. Initially we saw her, and she looked relatively stable and we thought she could stay on the floor but more recently, her blood pressure continues to drop despite 1-1/2 L of fluid. That reason she'll be transferred to the intensive care unit for further monitoring and management. She does have a history of type 2 diabetes mellitus, and she is obese. She is on room air. White count 0.1, hemoglobin 10.8, hematocrit 30.8, and platelet count 5000. Sodium 136, potassium 3.8, chlorides 103, CO2 21, anion gap 12, BUN 14, creatinine 0.42. Lactic acid was 5.7. Calcium 8.3. Urine had some blood in it. No obvious infection. Testing for influenza A and B, RSV, and coronavirus were all negative. Chest x-ray was normal. Progress note dated 05/23/2022. This is a 66-year-old female with history of acute myelocytic leukemia. She recently had chemotherapy, and came into the hospital with possible neutropenic sepsis with fever. She was placed on broad-spectrum antibiotics. Because of hypotension, she was moved to the intensive care unit. In addition, she fell out of bed, and injured her facial area, and had significant epistaxis, that re quired nasal packing on the left, by ear nose and throat physician. Currently, she seen and appears comfortable. He is in room 264. She's not receiving any supplemental oxygen. She's getting saline at 130 mL an hour. She continues on vancomycin and cefepime empirically. White count is 0.2, hemoglobin 7.4, hematocrit 19.7, and platelet count 11,000. Sodium 134, potassium 3.6, chlorides 111, CO2 20, BUN 13, creatinine 0.33. Blood cultures are showing evidence of gram-negative bacilli, and has been identified as Klebsiella pneumoniae. Sensitivities are pending. Progress note dated 05/24/2022. 66-year-old female seen again in room 264. She has a history of acute myelocytic leukemia, status post 2 rounds of chemotherapy, the last on May 14. Subsequent to that, she developed severe pancytopenia, with fever, and possible neutropenic sepsis. Blood cultures did reveal evidence of Klebsiella pneumoniae. She's currently on cefepime. She's received 1 unit of packed red blood cells, and 3 units of platelets since being here in the hospital. She's on room air. She's getting saline at 50 mL an hour. She fell getting out of bed, and traumatized her facial area. She had a significant epistaxis that required nasal packing by otolaryngology. White count 0.3, hemoglobin 7, gila tocrit 19.1, and platelet count 9000. The rest of the labs are pending today. On today's evaluation of 05/25/2022, the patient is being seen for a follow-up. This is a case of AML and the patient has received systemic chemotherapy with HiDAC and gemtuzumab. The patient is currently pancytopenic. She was admitted with neutropenic fever, and the patient do not to be septic with Klebsiella pneumonia that was cultured in her blood. The chest x-ray that was done on 05/21/2022 showed no acute abnormalities. The patient currently is covered with IV antibiotics pH is on IV cefepime 2 g every 8 hours. She is hemodynamically stable on no pressors. IV fluids are running at 0.9 at the rate of 50 mL an hour. She had a low-grade fever earlier this morning with a temperature of 100.1. Currently she is afebrile. She is on room air oxygen. She is pancytopenic still. Her hemoglobin is at 7.8. The white cell count is at 0.3 and a platelet count is at 8 and the patient is going to receive platelet transfusion today. She also had a fall that resulted into significant epistaxis that required nasal packing. No active bleeding at this point in time. The packing is removed. Sodium is at 1:30, BUN is at 8 with a creatinine of 0.3. On 05/26/2022, the patient is being seen for a follow-up. Overall condition has remained stable since yesterday. No fever. She remains pancytopenic related to her AML and treatment. She remains on IV cefepime 2 g every 8 hours. Hemodynamically stable. The WBC count is at 0.9 with a hemoglobin of 8.1 and a platelet count of 10. BUN is at 9 with a creatinine of 0.33 and a sodium level is at 135. As such, no significant change in condition. Pulse ox is 94% on room air oxygen. The patient was given platelet transfusion yesterday and the platelet counts have remained essentially stable. She'll be given more platelets today. Count today is at 10,000. Objective - Vital Signs Vital signs: Vital Signs Temp 99.2 F 05/26/22 04:00 Pulse 82 05/26/22 04:00 Resp 18 05/26/22 00:00 BP 128/77 05/26/22 04:00 Pulse Ox 94 L 05/26/22 07:49 FiO2 Intake & Output 05/25/22 05/26/22 05/26/22 18:59 06:59 18:59 Intake Total 410 820 Output Total 1500 3500 Balance -1090 -2680 Weight 110.4 kg Intake: IV 130 820 0.9 @ KVO 30 370 Cefepime 2 gm In Sodium 100 100 Chloride 0.9% 100 ml @ 25 mls/hr IVPB Q8HR [facility] Rx# :[id number] Sodium Chloride 0.9% 1, 350 000 ml @ 50 mls/hr IV . Q20H [facility] Rx#:[id number] Blood Product 280 Platelet Pheresis Pas 280 Psoralen Unit [id number] Output: Urine 1500 3500 Other: Voiding Method Bedside Commode Bedside Commode - Exam No acute distress, oriented 3. No respiratory distress. Currently on room air. HEENT examination is grossly unremarkable. Epistaxis noted. Significant ecchymoses of the upper lip. Nasal packing removed Neck supple. Full range of motion. No adenopathy thyromegaly or neck vein distention. Cardiovascular examination reveals regular rhythm rate. S1-S2 normal. No S3 or S4. No discernible murmur noted. Lungs reveal clear breath sounds. Breath sounds are equal bilaterally. No adventitious lung sounds including wheezes rhonchi or crackles. Abdomen soft bowel sounds are heard. No masses or tenderness. Extremities are intact. No cyanosis clubbing or edema. Skin is without rash or lesion. Neurologic examination is brief but nonfocal. - Labs CBC & Chem 7: 05/26/22 05:58 05/26/22 05:58 Labs: Abnormal Lab Results - Last 24 Hours (Table) 05/26/22 05/26/22 Range/Units 05:58 05:58 WBC 0.9 L* (3.8-10.6) k/uL RBC 2.60 L (3.80-5.40) m/uL Hgb 8.1 L (11.4-16.0) gm/dL Hct 21.8 L (34.0-46.0) % Plt Count 10 L* (150-450) k/uL Sodium 135 L (137-145) mmol/L Creatinine 0.33 L (0.52-1.04) mg/dL Glucose 127 H (74-99) mg/dL Calcium 8.2 L (8.4-10.2) mg/dL Total Protein 5.7 L (6.3-8.2) g/dL Albumin 2.8 L (3.5-5.0) g/dL Microbiology - Last 24 Hours (Table) 05/23/22 05:07 Blood Culture - Preliminary Blood No Growth after 72 hours 05/23/22 05:07 Blood Culture - Preliminary Blood No Growth after 72 hours 05/22/22 05:09 Blood Culture - Preliminary Blood No Growth after 96 hours 05/22/22 08:05 Blood Culture - Preliminary Blood No Growth after 72 hours Assessment and Plan Plan: Sepsis secondary to Klebsiella pneumoniae. The patient was neutropenic post systemic treatment for AML. Patient currently on IV cefepime. Hemodynamically stable and the patient is afebrile Neutropenic fever at the time of admission, confirmed to be septic, white cell count is still low with a low absolute neutrophil count Hypotension, the time of admission and this has recovered and the patient is currently normotensive History of acute myelocytic leukemia, status post chemotherapy, 2, most recently on 05/14/2022. HiDAC and gemtuzumab S/P fall, with facial trauma, and epistaxis. The nasal packing has been removed Pancytopenia. History of CVA. History of seizure disorder. History of neuropathy. Type 2 diabetes. History of gastric ulcer. Lifelong nonsmoker. Plan Continue IV cefepime Nasal packing is removed, no evidence of any acute bleeding Transfuse with platelets per hematology recommendation, current count is 10,000 Monitor fever pattern Hemodynamically stable Monitor hematologic profile The patient will be transferred to 3 S or oncology Removed G[place]ora catheter
--- NOTE | 2022-05-26 11:45 | P.PN ---
Subjective Progress Note Date: 05/26/22 Principal diagnosis: neutropenic fever, hx AML At today's visit patient is resting comfortably in bedside chair. Nasal packing removed, pt reports scant bleeding from left nare. She reports feeling well and improved. Patient denies nausea vomiting diarrhea. No fever in the last 24 hours. She denies pain at this time. Platelets 10,000 today, additional unit platelets ordered. No other reported complaints Objective - Vital Signs Vital signs: Vital Signs Temp 98.3 F 05/26/22 08:00 Pulse 92 05/26/22 08:00 Resp 14 05/26/22 08:00 BP 121/72 05/26/22 08:00 Pulse Ox 94 L 05/26/22 08:00 FiO2 Intake & Output 05/25/22 05/26/22 05/26/22 18:59 06:59 18:59 Intake Total 410 820 260 Output Total 1500 3500 Balance -1090 -2680 260 Weight 110.4 kg Intake: IV 130 820 260 0.9 @ KVO 30 370 160 Cefepime 2 gm In Sodium 100 100 100 Chloride 0.9% 100 ml @ 25 mls/hr IVPB Q8HR [facility] Rx# :[id number] Sodium Chloride 0.9% 1, 350 000 ml @ 50 mls/hr IV . Q20H [facility] Rx#:[id number] Blood Product 280 Platelet Pheresis Pas 280 Psoralen Unit [id number] Output: Urine 1500 3500 Other: Voiding Method Bedside Commode Bedside Commode Toilet # Voids 1 # Bowel Movements 1 - Constitutional General appearance: Present: average body habitus, no acute distress - EENT EENT Comment(s): no acute epistaxis Eyes: Present: anicteric sclerae, EOMI ENT: Present: hearing grossly normal - Respiratory Details: Breathing is even and unlabored - Cardiovascular Details: Skin is warm and dry - Integumentary Integumentary: Present: pale - Neurologic Neurologic Comment(s): Grossly intact - Musculoskeletal Musculoskeletal: Present: generalized weakness - Psychiatric Psychiatric: Present: A&O x's 3, appropriate affect, intact judgment & insight - Labs CBC & Chem 7: 05/26/22 05:58 05/26/22 05:58 Labs: Abnormal Lab Results - Last 24 Hours (Table) 05/26/22 05/26/22 Range/Units 05:58 05:58 WBC 0.9 L* (3.8-10.6) k/uL RBC 2.60 L (3.80-5.40) m/uL Hgb 8.1 L (11.4-16.0) gm/dL Hct 21.8 L (34.0-46.0) % Plt Count 10 L* (150-450) k/uL Sodium 135 L (137-145) mmol/L Creatinine 0.33 L (0.52-1.04) mg/dL Glucose 127 H (74-99) mg/dL Calcium 8.2 L (8.4-10.2) mg/dL Total Protein 5.7 L (6.3-8.2) g/dL Albumin 2.8 L (3.5-5.0) g/dL Microbiology - Last 24 Hours (Table) 05/22/22 08:05 Blood Culture - Preliminary Blood No Growth after 96 hours 05/23/22 05:07 Blood Culture - Preliminary Blood No Growth after 72 hours 05/23/22 05:07 Blood Culture - Preliminary Blood No Growth after 72 hours 05/22/22 05:09 Blood Culture - Preliminary Blood No Growth after 96 hours Assessment and Plan (1) Neutropenic fever Current Visit: Yes Status: Acute Code(s): D70.9 - NEUTROPENIA, UNSPECIFIED; R50.81 - FEVER PRESENTING WITH CONDITIONS CLASSIFIED ELSEWHERE SNOMED Code(s): 362668009 (2) Acute myeloid leukemia Current Visit: Yes Status: Chronic Priority: High Code(s): C92.00 - ACUTE MYELOBLASTIC LEUKEMIA, NOT HAVING ACHIEVED REMISSION SNOMED Code(s): 41533652 Plan: Neutropenic fever -She received HiDAC and gemtuzumab consolidative chemotherapy the week of 05/10/2022 to 05/14/2022 and subsequently received Neulasta on 05/15/2022. WBC 0.[address]. [address] Bradley her oncologist at [facility] and he recommended not to give granix at this time due to neulasta being given on 05/15. WBC 900 today, granix ordered for WBC support. -She was noted to have fever on 05/21/2022 with no other localizing signs or symptoms -Chest x-ray revealed no acute process concerning for infection -Blood cultures from admission are positive from Klebsiella pneumonia, which is likely due to translocation from the gut given recent HiDAC chemotherapy. Repeat blood cultures negative -She continues on cefepime. ID following -Will continue to monitor counts Core binding factor AML -Received 7+3 induction chemotherapy in December 2021 -This was complicated by subdural and subarachnoid hemorrhage along with s eizures -Repeat bone marrow biopsy in February 2022 revealed complete remission -She was evaluated at [facility] and given her translocation (8;21) she was determined to be a candidate for consolidative chemotherapy as opposed to proceeding with allogenic stem cell transplant -She received cycle 1 of HiDAC and gemtuzumab on 05/10/2022 and was discharged on 05/14/2022. She received Neulasta on 05/15/2022 -She likely has pancytopenia that is chemotherapy-induced along with superimposed Klebsiella pneumoniae bacteremia. -DIC workup negative -Transfuse for hemoglobin less than 7 and/or platelet count less than 20,000 due to her history of intracranial hemorrhage -Platelets 10,000 today, 1 unit of pheresis platelets ordered. Hemoglobin 8.1 attests: I have performed H&P and developed impression and plan of care for patient, discussed with dictator. I agree with dictated note, documented as a scribe
[2022-05-26] MEDS: SODIUM CHLORIDE 0.9% 1,000 ML IV SCH ×2 (13:44→20:51)
--- NOTE | 2022-05-26 16:18 | P.PN ---
Subjective Progress Note Date: 05/26/22 Principal diagnosis: Febrile neutropenia and bacteremia Patient is a 66-year-old female past medical history significant for acute myeloid leukemia CVA TIA seizure disorder last chemo on May 14, 2022 patient presented to the hospital 05/22/2022 because of the fever , patient did have a fall in hospital with significant epistaxis and bruising to the face area, blood cultures coming back positive with Klebsiella On today's evaluation that is 05/26/2022, the patient continues to be afebrile, the patient is breathing comfortably on room air, the patient denies chest pain shortness of breath , the patient did have occasional dry cough no abdominal pain or diarrhea has been reported Objective - Vital Signs Vital signs: Vital Signs Temp 98.4 F 05/26/22 12:33 Pulse 96 05/26/22 12:33 Resp 14 05/26/22 12:33 BP 112/75 05/26/22 12:33 Pulse Ox 95 05/26/22 12:33 FiO2 Intake & Output 05/25/22 05/26/22 05/26/22 18:59 06:59 18:59 Intake Total 410 820 260 Output Total 1500 3500 Balance -1090 -2680 260 Weight 110.4 kg Intake: IV 130 820 260 0.9 @ KVO 30 370 160 Cefepime 2 gm In Sodium 100 100 100 Chloride 0.9% 100 ml @ 25 mls/hr IVPB Q8HR [facility] Rx# :[id number] Sodium Chloride 0.9% 1, 350 000 ml @ 50 mls/hr IV . Q20H [facility] Rx#:[id number] Blood Product 280 Platelet Pheresis Pas 280 Psoralen Unit [id number] Output: Urine 1500 3500 Other: Voiding Method Bedside Commode Bedside Commode Toilet # Voids 1 # Bowel Movements 1 - Exam GENERAL DESCRIPTION: An elderly female up in the chair in no distress RESPIRATORY SYSTEM: Unlabored breathing , decreased breath sounds at bases HEART: S1 S2 regular rate and rhythm , ABDOMEN: Soft , no tenderness EXTREMITIES: No edema feet - Labs CBC & Chem 7: 05/26/22 05:58 05/26/22 05:58 Labs: Abnormal Lab Results - Last 24 Hours (Table) 05/26/22 05/26/22 Range/Units 05:58 05:58 WBC 0.9 L* (3.8-10.6) k/uL RBC 2.60 L (3.80-5.40) m/uL Hgb 8.1 L (11.4-16.0) gm/dL Hct 21.8 L (34.0-46.0) % Plt Count 10 L* (150-450) k/uL Sodium 135 L (137-145) mmol/L Creatinine 0.33 L (0.52-1.04) mg/dL Glucose 127 H (74-99) mg/dL Calcium 8.2 L (8.4-10.2) mg/dL Total Protein 5.7 L (6.3-8.2) g/dL Albumin 2.8 L (3.5-5.0) g/dL Microbiology - Last 24 Hours (Table) 05/22/22 08:05 Blood Culture - Preliminary Blood No Growth after 96 hours 05/23/22 05:07 Blood Culture - Preliminary Blood No Growth after 72 hours 05/23/22 05:07 Blood Culture - Preliminary Blood No Growth after 72 hours 05/22/22 05:09 Blood Culture - Preliminary Blood No Growth after 96 hours Assessment and Plan (1) Febrile neutropenia Current Visit: Yes Status: Acute Code(s): D70.9 - NEUTROPENIA, UNSPECIFIED; R50.81 - FEVER PRESENTING WITH CONDITIONS CLASSIFIED ELSEWHERE SNOMED Code(s): 265482950 (2) Bacteremia Current Visit: Yes Status: Acute Code(s): R78.81 - BACTEREMIA SNOMED Code(s): 0767172 Plan: 1-Patient presented to hospital with fever in this patient who did have history of acute myeloid leukemia on chemotherapy with a recent PICC line replacement for nonworking PICC line in this patient initial work-up including chest x-ray UA has been negative abdominal soft on clinical examination concern for possible PICC line infection,patient did have a fall with injury to the face no evidence of any fracture 2-patient blood culture has been finalized as Klebsiella, the patient did have a negative repeat blood cultures patient seemed to have shown clinical improvement and well continue with the cefepime and monitor clinical course closely Time with Patient: Less than 30
[2022-05-26] MEDS ORDERED: FILGRASTIM-SNDZ 480 MCG/0.8 ML SYRINGE SQ SCH (18:00)
[2022-05-26] MEDS: PANTOPRAZOLE 40 MG TABLET PO SCH (20:47)
--- NOTE | 2022-05-26 21:36 | P.PN ---
Subjective From the records patient is 66-year-old lady with past medical significant for acute myeloid leukemia who presented to the ER because of fevers. Patient normally receives chemotherapy at [facility] with her last session being last week. Rolly taylor had a PICC line placed yesterday and received platelet transfusion, following that she started noticing fevers. There was no complain of shortness of breath. No complaint of any cough. Because of fever she became concerned and came to the ER, initial workup in the ER showed white count of 0.2, hemoglobin 11.3, platelet count 10, sodium 137, potassium 4.4, chloride 103, BUN 15, creatinine 0.4, lactic acid level initially was 2.4. Initial chest x-ray was negative for acute cardiac pulmonary process. Patient was started on broad- spectrum antibiotic and was admitted to internal medicine team. While in the floor patient had a fall, receiving trauma to her face.CT face as as well as CT head and neck showed no acute intrarenal process, no evidence of cervical spine fracture, no acute facial bone fractures., Did show soft tissue hematoma anterior to the maxilla with partial opacification of the left nasal cavity. Patient was having episodes of hypotension, patient received adequate fluid resuscitation but was still hypotensive so was transferred to ICU. 05/23. Patient seen and examined. White count this morning is 0.2, hemoglobin 7.4, platelet count 11k, sodium 134, potassium 3.6,. Vital signs morning are temperature 97.8, heart rate 88, blood pressure 126/67, on room air. No further episodes of epistaxis, nasal packing in place 05/24. Patient seen and examined. No acute overnight. Denies any epistaxis. White count today is 0.3, hemoglobin 7, platelet count 9. Potassium this morning is 3.3. Patient being transfused another unit of platelets and packed red blood cell 05/25. Patient seen and examined. T-max of 100.1 overnight, heart rate 98, blood pressure 130/72, room air. White count this morning is 0.3, hemoglobin 7.8, platelet count 8. Patient had nasal pack removed yesterday. Patient being transfused another unit of platelets. Some oozing of serous fluid seen from the nose, no stiven bleeding I started seeing the patient today 05/26/2022 This is a pleasant 66 years old female with a known case of acute myeloid leukemia undergoing chemotherapy, about one week prior to hospitalization she received chemotherapy and then presents because of generalized weakness and neutropenic fever, on the first day of admission she fell on her way down to the bathroom and hit her nose and she suffered from nasal fracture with epistaxis and hematoma and she's been evaluated by Otilia from ENT service and packing was provided and debridement is controlled. Patient has evidence of Klebsiella bacteremia and currently she is covered with cefepime shown interval improvement, she wasn't ICU for hypertension but now blood pressure is stable. Also pancytopenia is slowly progressive and his been followed closely by hematology/oncology team she was started on filgrastim today , her WBC 0.9, hemoglobin 8.1 and platelet count 10,000 after platelet transfusion yesterday where it was 8000. Sodium is 135. Currently she is on cefepime and normal saline 50 mL/h Also patient with a known history of subacute arachnoid and subdural hematoma with resultant seizure and currently on her home dose of lactose, and Keppra as well as Dilantin. Today patient is fully awake and oriented, sitting up in bed complaints. She is doing well and today she's going to move out of the ICU to the general medical floor Objective - Vital Signs Vital signs: Vital Signs Temp 99.2 F 05/26/22 04:00 Pulse 82 05/26/22 04:00 Resp 18 05/26/22 00:00 BP 128/77 05/26/22 04:00 Pulse Ox 94 L 05/26/22 07:49 FiO2 Intake & Output 05/25/22 05/26/22 05/26/22 18:59 06:59 18:59 Intake Total 410 820 Output Total 1500 3500 Balance -1090 -2680 Weight 110.4 kg Intake: IV 130 820 0.9 @ KVO 30 370 Cefepime 2 gm In Sodium 100 100 Chloride 0.9% 100 ml @ 25 mls/hr IVPB Q8HR [facility] Rx# :[id number] Sodium Chloride 0.9% 1, 350 000 ml @ 50 mls/hr IV . Q20H [facility] Rx#:[id number] Blood Product 280 Platelet Pheresis Pas 280 Psoralen Unit [id number] Output: Urine 1500 3500 Other: Voiding Method Bedside Commode Bedside Commode - Exam -GENERAL: The patient is alert and oriented x3, not in any acute distress. Well developed, well nourished. Generally weak -HEENT: Pupils are round and equally reacting to light. EOMI. No scleral icterus. No conjunctival pallor. Normocephalic, atraumatic. No pharyngeal erythema. No thyromegaly. Bilateral nasal bruising is improving CARDIOVASCULAR: S1 and S2 present. No murmurs, rubs, or gallops. PULMONARY: Chest is clear to auscultation, no wheezing or crackles. ABDOMEN: Soft, nontender, nondistended, normoactive bowel sounds. No palpable organomegaly. MUSCULOSKELETAL: No joint swelling or deformity. EXTREMITIES: No cyanosis, clubbing, or pedal edema. NEUROLOGICAL: Gross neurological examination did not reveal any focal deficits. SKIN: No rashes. no petechiae. - Labs CBC & Chem 7: 05/26/22 05:58 05/26/22 05:58 Labs: Abnormal Lab Results - Last 24 Hours (Table) 05/26/22 05/26/22 Range/Units 05:58 05:58 WBC 0.9 L* (3.8-10.6) k/uL RBC 2.60 L (3.80-5.40) m/uL Hgb 8.1 L (11.4-16.0) gm/dL Hct 21.8 L (34.0-46.0) % Plt Count 10 L* (150-450) k/uL Sodium 135 L (137-145) mmol/L Creatinine 0.33 L (0.52-1.04) mg/dL Glucose 127 H (74-99) mg/dL Calcium 8.2 L (8.4-10.2) mg/dL Total Protein 5.7 L (6.3-8.2) g/dL Albumin 2.8 L (3.5-5.0) g/dL Microbiology - Last 24 Hours (Table) 05/22/22 08:05 Blood Culture - Preliminary Blood No Growth after 96 hours 05/23/22 05:07 Blood Culture - Preliminary Blood No Growth after 72 hours 05/23/22 05:07 Blood Culture - Preliminary Blood No Growth after 72 hours 05/22/22 05:09 Blood Culture - Preliminary Blood No Growth after 96 hours Assessment and Plan Assessment: Klebsiella bacteremia Neutropenic fever Pancytopenia secondary to chemotherapy and myeloid leukemia AML Fall with nasal fracture, healing History of subarachnoid and subdural hematoma History of seizure Mild hypernatremia improving Plan: Continued to with cefepime Continue with gentle hydration Several consultants on the case including hematology oncology, infectious disease team, pulmonary/surgical care team and patient evaluated by ENT Continue seizure medication Continue with filgrastim per oncology team Labs and medication were reviewed.. Continue same treatment. Continue with symptomatic treatment. Resume home medication. Monitor labs and vitals. DVT and GI prophylaxis. Further recommendations as per clinical course of the patient DVT prophylaxis: no Subcutaneous heparin for severe thrombocytopenia and bleeding GI Prophylaxis: Ppi PT/OT: Pending Prognosis is guarded
[2022-05-27] MEDS: CEFEPIME 2 GM in SODIUM CHLORIDE 0.9% 100 ML IVPB SCH ×2 (07:57→15:53)
[2022-05-27] MEDS: LACOSAMIDE 50 MG TABLET PO SCH ×2 (07:58→20:39)
[2022-05-27] MEDS: MAGNESIUM OXIDE 400 MG TAB PO SCH (07:58)
[2022-05-27] MEDS: PHENYTOIN SODIUM EXTENDED 100 MG CAP PO SCH ×3 (07:59→21:02)
[2022-05-27 10:07] LABS: African American GFR (CKD) >90 (>60 ml/min/1.73 sqM); Anion Gap 9 mmol/L; Blood Urea Nitrogen 11 mg/dL (7-17); Calcium 8.4 mg/dL (8.4-10.2); Carbon Dioxide 24 mmol/L (22-30); Chloride 104 mmol/L (98-107); Glucose 164 mg/dL (74-99); Non-African American GFR(CKD) >90 (>60 ml/min/1.73 sqM); Potassium 3.7 mmol/L (3.5-5.1); Sodium 137 mmol/L (137-145)
[2022-05-27 11:31] LABS: HCT 23.5 % (34.0-46.0); HGB 8.5 gm/dL (11.4-16.0); MCH 31.1 pg (25.0-35.0); MCHC 36.1 g/dL (31.0-37.0); MCV 86.1 fL (80.0-100.0); Poikilocytosis Slight; RBC 2.73 m/uL (3.80-5.40); RDW 13.3 % (11.5-15.5); WBC 2.7 k/uL (3.8-10.6)
[2022-05-27 11:33] LABS: Platelet Count 8 k/uL (150-450)
--- NOTE | 2022-05-27 13:22 | P.PN ---
Subjective From the records patient is 66-year-old lady with past medical significant for acute myeloid leukemia who presented to the ER because of fevers. Patient normally receives chemotherapy at [facility] with her last session being last week. Rolly taylor had a PICC line placed yesterday and received platelet transfusion, following that she started noticing fevers. There was no complain of shortness of breath. No complaint of any cough. Because of fever she became concerned and came to the ER, initial workup in the ER showed white count of 0.2, hemoglobin 11.3, platelet count 10, sodium 137, potassium 4.4, chloride 103, BUN 15, creatinine 0.4, lactic acid level initially was 2.4. Initial chest x-ray was negative for acute cardiac pulmonary process. Patient was started on broad- spectrum antibiotic and was admitted to internal medicine team. While in the floor patient had a fall, receiving trauma to her face.CT face as as well as CT head and neck showed no acute intrarenal process, no evidence of cervical spine fracture, no acute facial bone fractures., Did show soft tissue hematoma anterior to the maxilla with partial opacification of the left nasal cavity. Patient was having episodes of hypotension, patient received adequate fluid resuscitation but was still hypotensive so was transferred to ICU. 05/23. Patient seen and examined. White count this morning is 0.2, hemoglobin 7.4, platelet count 11k, sodium 134, potassium 3.6,. Vital signs morning are temperature 97.8, heart rate 88, blood pressure 126/67, on room air. No further episodes of epistaxis, nasal packing in place 05/24. Patient seen and examined. No acute overnight. Denies any epistaxis. White count today is 0.3, hemoglobin 7, platelet count 9. Potassium this morning is 3.3. Patient being transfused another unit of platelets and packed red blood cell 05/25. Patient seen and examined. T-max of 100.1 overnight, heart rate 98, blood pressure 130/72, room air. White count this morning is 0.3, hemoglobin 7.8, platelet count 8. Patient had nasal pack removed yesterday. Patient being transfused another unit of platelets. Some oozing of serous fluid seen from the nose, no stiven bleeding I started seeing the patient today 05/26/2022 This is a pleasant 66 years old female with a known case of acute myeloid leukemia undergoing chemotherapy, about one week prior to hospitalization she received chemotherapy and then presents because of generalized weakness and neutropenic fever, on the first day of admission she fell on her way down to the bathroom and hit her nose and she suffered from nasal fracture with epistaxis and hematoma and she's been evaluated by Otilia from ENT service and packing was provided and debridement is controlled. Patient has evidence of Klebsiella bacteremia and currently she is covered with cefepime shown interval improvement, she wasn't ICU for hypertension but now blood pressure is stable. Also pancytopenia is slowly progressive and his been followed closely by hematology/oncology team she was started on filgrastim today , her WBC 0.9, hemoglobin 8.1 and platelet count 10,000 after platelet transfusion yesterday where it was 8000. Sodium is 135. Currently she is on cefepime and normal saline 50 mL/h Also patient with a known history of subacute arachnoid and subdural hematoma with resultant seizure and currently on her home dose of lactose, and Keppra as well as Dilantin. Today patient is fully awake and oriented, sitting up in bed complaints. She is doing well and today she's going to move out of the ICU to the general medical floor 05/27/2022 Clinically she is doing well, she is sitting up in bed, she hasn't been tried to walk yet therefore we asked for physical therapy. However patient asking when she can go home because she feels better. She tolerates that well, no other symptoms or physical complaints today She's hemodynamically stable, afebrile CBC is improving after she was started on filgrastim She's continued on cefepime and normal saline 50 mL/h Repeat blood cultures negative Possible discharge in 24-48 hours if she keeps improving Objective - Vital Signs Vital signs: Vital Signs Temp 97.8 F 05/27/22 13:00 Pulse 98 05/27/22 13:00 Resp 18 05/27/22 13:00 BP 141/85 05/27/22 13:00 Pulse Ox 99 05/27/22 13:00 FiO2 Intake & Output 05/26/22 05/27/22 05/27/22 18:59 06:59 18:59 Intake Total 460 1454 353 Balance 460 1454 353 Intake: IV 460 0.9 @ KVO 360 Cefepime 2 gm In Sodium 100 Chloride 0.9% 100 ml @ 25 mls/hr IVPB Q8HR [facility] Rx# :[id number] Intake, IV Titration 700 Amount Cefepime 2 gm In Sodium 100 Chloride 0.9% 100 ml @ 25 mls/hr IVPB Q8HR [facility] Rx# :[id number] Sodium Chloride 0.9% 1, 600 000 ml @ 50 mls/hr IV . Q20H [facility] Rx#:[id number] Oral 500 353 Blood Product 0 254 0 Unit 0 Platelet Pheresis Pas 0 254 Psoralen Unit [id number] Other: Voiding Method Toilet Toilet # Voids 1 3 # Bowel Movements 1 - Exam -GENERAL: The patient is alert and oriented x3, not in any acute distress. Well developed, well nourished. Generally weak -HEENT: Pupils are round and equally reacting to light. EOMI. No scleral icterus. No conjunctival pallor. Normocephalic, atraumatic. No pharyngeal erythema. No thyromegaly. Bilateral nasal bruising is improving CARDIOVASCULAR: S1 and S2 present. No murmurs, rubs, or gallops. PULMONARY: Chest is clear to auscultation, no wheezing or crackles. ABDOMEN: Soft, nontender, nondistended, normoactive bowel sounds. No palpable organomegaly. MUSCULOSKELETAL: No joint swelling or deformity. EXTREMITIES: No cyanosis, clubbing, or pedal edema. NEUROLOGICAL: Gross neurological examination did not reveal any focal deficits. SKIN: No rashes. no petechiae. - Labs CBC & Chem 7: 05/27/22 09:00 05/27/22 09:00 Labs: Abnormal Lab Results - Last 24 Hours (Table) 05/27/22 05/27/22 Range/Units 09:00 09:00 WBC 2.7 L (3.8-10.6) k/uL RBC 2.73 L (3.80-5.40) m/uL Hgb 8.5 L (11.4-16.0) gm/dL Hct 23.5 L (34.0-46.0) % Plt Count 8 L* (150-450) k/uL Creatinine 0.34 L (0.52-1.04) mg/dL Glucose 164 H (74-99) mg/dL Microbiology - Last 24 Hours (Table) 05/22/22 08:05 Blood Culture - Preliminary Blood No Growth after 120 hours 05/23/22 05:07 Blood Culture - Preliminary Blood No Growth after 96 hours 05/23/22 05:07 Blood Culture - Preliminary Blood No Growth after 96 hours 05/22/22 05:09 Blood Culture - Preliminary Blood No Growth after 120 hours Assessment and Plan Assessment: Klebsiella bacteremia Neutropenic fever Pancytopenia secondary to chemotherapy and myeloid leukemia AML Fall with nasal fracture, healing History of subarachnoid and subdural hematoma History of seizure Mild hypernatremia improving Plan: Continued to with cefepime Continue with gentle hydration Several consultants on the case including hematology oncology, infectious disease team, pulmonary/surgical care team and patient evaluated by ENT Continue seizure medication Continue with filgrastim per oncology team Labs and medication were reviewed.. Continue same treatment. Continue with symptomatic treatment. Resume home medication. Monitor labs and vitals. DVT and GI prophylaxis. Further recommendations as per clinical course of the patient DVT prophylaxis: no Subcutaneous heparin for severe thrombocytopenia and bleeding GI Prophylaxis: Ppi PT/OT: Pending Prognosis is guarded
[2022-05-27 14:05] LABS: Lymphocytes # (M) 0.41 k/uL (1.0-4.8); Monocytes # (M) 0.81 k/uL (0-1.0); Neutrophils # (M) 1.49 k/uL (1.3-7.7); Neutrophils % (M) 55 %; Nucleated Red Blood Cells 0 /100 WBC (0-0); Total Cells Counted 100
--- NOTE | 2022-05-27 15:00 | P.PN ---
Subjective Progress Note Date: 05/27/22 Principal diagnosis: neutropenic fever, hx AML At today's visit patient is resting comfortably in bedside chair. Nasal packing removed, pt reports scant bleeding from left nare. Denies clots. She reports feeling well and improved. Patient denies nausea vomiting diarrhea. No fever in the last 48 hours. She denies pain at this time. Platelets 8.000 today, additional unit platelets ordered. WBCs 2.7. ANC 1.5, will d/c granix. No other reported complaints Objective - Vital Signs Vital signs: Vital Signs Temp 98.2 F 05/27/22 13:20 Pulse 98 05/27/22 13:20 Resp 18 05/27/22 13:20 BP 130/79 05/27/22 13:20 Pulse Ox 100 05/27/22 13:20 FiO2 Intake & Output 05/26/22 05/27/22 05/27/22 18:59 06:59 18:59 Intake Total 460 1454 593 Balance 460 1454 593 Intake: IV 460 0.9 @ KVO 360 Cefepime 2 gm In Sodium 100 Chloride 0.9% 100 ml @ 25 mls/hr IVPB Q8HR [facility] Rx# :[id number] Intake, IV Titration 700 Amount Cefepime 2 gm In Sodium 100 Chloride 0.9% 100 ml @ 25 mls/hr IVPB Q8HR [facility] Rx# :[id number] Sodium Chloride 0.9% 1, 600 000 ml @ 50 mls/hr IV . Q20H [facility] Rx#:[id number] Oral 500 593 Blood Product 0 254 0 Unit 0 Platelet Pheresis Pas 0 254 Psoralen Unit [id number] Other: Voiding Method Toilet Toilet # Voids 1 3 # Bowel Movements 1 - Constitutional General appearance: Present: average body habitus, no acute distress - EENT EENT Comment(s): no acute epistaxis noted Eyes: Present: anicteric sclerae, EOMI ENT: Present: hearing grossly normal - Respiratory Details: Breathing even and unlabored - Cardiovascular Details: Skin is warm and dry - Integumentary Integumentary: Present: pale - Musculoskeletal Musculoskeletal: Present: generalized weakness - Psychiatric Psychiatric: Present: A&O x's 3, appropriate affect, intact judgment & insight - Labs CBC & Chem 7: 05/27/22 09:00 05/27/22 09:00 Labs: Abnormal Lab Results - Last 24 Hours (Table) 05/27/22 05/27/22 Range/Units 09:00 09:00 WBC 2.7 L (3.8-10.6) k/uL RBC 2.73 L (3.80-5.40) m/uL Hgb 8.5 L (11.4-16.0) gm/dL Hct 23.5 L (34.0-46.0) % Plt Count 8 L* (150-450) k/uL Lymphocytes # (Manual) 0.41 L (1.0-4.8) k/uL Creatinine 0.34 L (0.52-1.04) mg/dL Glucose 164 H (74-99) mg/dL Microbiology - Last 24 Hours (Table) 05/22/22 08:05 Blood Culture - Preliminary Blood No Growth after 120 hours 05/23/22 05:07 Blood Culture - Preliminary Blood No Growth after 96 hours 05/23/22 05:07 Blood Culture - Preliminary Blood No Growth after 96 hours 05/22/22 05:09 Blood Culture - Preliminary Blood No Growth after 120 hours Assessment and Plan (1) Neutropenic fever Current Visit: Yes Status: Acute Code(s): D70.9 - NEUTROPENIA, UNSPECIFIED; R50.81 - FEVER PRESENTING WITH CONDITIONS CLASSIFIED ELSEWHERE SNOMED Code(s): 480200544 (2) Acute myeloid leukemia Current Visit: Yes Status: Chronic Priority: High Code(s): C92.00 - ACUTE MYELOBLASTIC LEUKEMIA, NOT HAVING ACHIEVED REMISSION SNOMED Code(s): 09797991 Plan: Neutropenic fever -She received HiDAC and gemtuzumab consolidative chemotherapy the week of 05/10/2022 to 05/14/2022 and subsequently received Neulasta on 05/15/2022. WBC 0.[address]. [address] Bradley her oncologist at [facility] and he recommended not to give granix at this time due to neulasta being given on 05/15. Granix given x 1 dose, WBC 2.7, ANC 1.5, will d/c granix. -She was noted to have fever on 05/21/2022 with no other localizing signs or symptoms. No fever in last 48 hrs -Chest x-ray revealed no acute process concerning for infection -Blood cultures from admission are positive from Klebsiella pneumonia, which is likely due to translocation from the gut given recent HiDAC chemotherapy. Repeat blood cultures negative -She continues on cefepime. ID following -Will continue to monitor counts Core binding factor AML -Received 7+3 induction chemotherapy in December 2021 -This was complicated by subdural and subarachnoid hemorrhage along with seizures -Repeat bone marrow biopsy in February 2022 revealed complete remission -She was evaluated at [facility] and given her translocation (8;21) she was determined to be a candidate for consolidative chemotherapy as opposed to proceeding with allogenic stem cell transplant -She received cycle 1 of HiDAC and gemtuzumab on 05/10/2022 and was discharged on 05/14/2022. She received Neulasta on 05/15/2022 -She likely has pancytopenia that is chemotherapy-induced along with superimposed Klebsiella pneumoniae bacteremia. -DIC workup negative -Transfuse for hemoglobin less than 7 and/or platelet count less than 20,000 due to her history of intracranial hemorrhage -Platelets 8,000 today, 1 unit of pheresis platelets ordered. Hemoglobin 8.5 attests: I have performed H&P and developed impression and plan of care for patient, discussed with dictator. I agree with dictated note, documented as a scribe
--- NOTE | 2022-05-27 15:45 | P.PN ---
Subjective Progress Note Date: 05/27/22 Principal diagnosis: Neutropenic sepsis 66-year-old female with history of acute myelocytic leukemia. The patient has had recent chemotherapy, the last one being on May 14. The patient came into the hospital because of fever. He was found to be pancytopenic. She was admitted with possible neutropenic sepsis. I was called by the hospital service, because the patient apparently fell while getting out of bed, injuring her facial area, with significant swelling to the left, and epistaxis. Facial computed tomography scan and brain CT scans were negative. The patient was placed on vancomycin and cefepime. He receiving IV fluids. Despite that, her blood pressures are little soft. Initially we saw her, and she looked relatively stable and we thought she could stay on the floor but more recently, her blood pressure continues to drop despite 1-1/2 L of fluid. That reason she'll be transferred to the intensive care unit for further monitoring and management. She does have a history of type 2 diabetes mellitus, and she is obese. She is on room air. White count 0.1, hemoglobin 10.8, hematocrit 30.8, and platelet count 5000. Sodium 136, potassium 3.8, chlorides 103, CO2 21, anion gap 12, BUN 14, creatinine 0.42. Lactic acid was 5.7. Calcium 8.3. Urine had some blood in it. No obvious infection. Testing for influenza A and B, RSV, and coronavirus were all negative. Chest x-ray was normal. Progress note dated 05/23/2022. This is a 66-year-old female with history of acute myelocytic leukemia. She recently had chemotherapy, and came into the hospital with possible neutropenic sepsis with fever. She was placed on broad-spectrum antibiotics. Because of hypotension, she was moved to the intensive care unit. In addition, she fell out of bed, and injured her facial area, and had significant epistaxis, that required nasal packing on the left, by ear nose and throat physician. Currently, she seen and appears comfortable. He is in room 264. She's not receiving any supplemental oxygen. She's getting saline at 130 mL an hour. She continues on vancomycin and cefepime empirically. White count is 0.2, hemoglobin 7.4, hematocrit 19.7, and platelet count 11,000. Sodium 134, potassium 3.6, chlorides 111, CO2 20, BUN 13, creatinine 0.33. Blood cultures are showing evidence of gram-negative bacilli, and has been identified as Klebsiella pneumoniae. Sensitivities are pending. Progress note dated 05/24/2022. 66-year-old female seen again in room 264. She has a history of acute myelocytic leukemia, status post 2 rounds of chemotherapy, the last on May 14. Subsequent to that, she developed severe pancytopenia, with fever, and possible neutropenic sepsis. Blood cultures did reveal evidence of Klebsiella pneumoniae. She's currently on cefepime. She's received 1 unit of packed red blood cells, and 3 units of platelets since being here in the hospital. She's on room air. She's getting saline at 50 mL an hour. She fell getting out of bed, and traumatized her facial area. She had a significant epistaxis that required nasal packing by otolaryngology. White count 0.3, hemoglobin 7, hematocrit 19.1, and platelet count 9000. The rest of the labs are pending today. On today's evaluation of 05/25/2022, the patient is being seen for a follow-up. This is a case of AML and the patient has received systemic chemotherapy with HiDAC and gemtuzumab. The patient is currently pancytopenic. She was admitted with neutropenic fever, and the patient do not to be septic with Klebsiella pneumonia that was cultured in her blood. The chest x-ray that was done on 05/21/2022 showed no acute abnormalities. The patient currently is covered with IV antibiotics pH is on IV cefepime 2 g every 8 hours. She is hemodynamically stable on no pressors. IV fluids are running at 0.9 at the rate of 50 mL an hour. She had a low-grade fever earlier this morning with a temperature of 100.1. Currently she is afebrile. She is on room air oxygen. She is pancytopenic still. Her hemoglobin is at 7.8. The white cell count is at 0.3 and a platelet count is at 8 and the patient is going to receive platelet transfusion today. She also had a fall that resulted into significant epistaxis that required nasal packing. No active bleeding at this point in time. The packing is removed. Sodium is at 1:30, BUN is at 8 with a creatinine of 0.3. On 05/26/2022, the patient is being seen for a follow-up. Overall condition has remained stable since yesterday. No fever. She remains pancytopenic related to her AML and treatment. She remains on IV cefepime 2 g every 8 hours. Hemodynamically stable. The WBC count is at 0.9 with a hemoglobin of 8.1 and a platelet count of 10. BUN is at 9 with a creatinine of 0.33 and a sodium level is at 135. As such, no significant change in condition. Pulse ox is 94% on room air oxygen. The patient was given platelet transfusion yesterday and the platelet counts have remained essentially stable. She'll be given more platelets today. Count today is at 10,000. I am seeing this patient today 05/27/2022 in follow-up on the general medical floor. The patient's condition is stable. She remains afebrile. Patient continues to receive cefepime for Klebsiella pneumoniae positive bacteremia. Repeat blood cultures from May 23 show no growth at 96 hours. Patient is still pancytopenic. Patient's WBC count is up to 2.7, hemoglobin 8.5, hematocrit 23.5, platelets are low at 8000. Patient has received multiple platelet and blood transfusions during her stay. She has already received a dose of packed platelets today. Total of 2 units PRBC and 7 packed units of platelets. No bleeding noted. Oncology is on the case. Patient is currently up ambulating in the room. She is on room air, in no acute distress. Vital signs remain stable. Objective - Vital Signs Vital signs: Vital Signs Temp 98.2 F 05/27/22 13:20 Pulse 98 05/27/22 13:20 Resp 18 05/27/22 13:20 BP 130/79 05/27/22 13:20 Pulse Ox 100 05/27/22 13:20 FiO2 Intake & Output 05/26/22 05/27/22 05/27/22 18:59 06:59 18:59 Intake Total 460 1454 593 Balance 460 1454 593 Intake: IV 460 0.9 @ KVO 360 Cefepime 2 gm In Sodium 100 Chloride 0.9% 100 ml @ 25 mls/hr IVPB Q8HR [facility] Rx# :[id number] Intake, IV Titration 700 Amount Cefepime 2 gm In Sodium 100 Chloride 0.9% 100 ml @ 25 mls/hr IVPB Q8HR [facility] Rx# :[id number] Sodium Chloride 0.9% 1, 600 000 ml @ 50 mls/hr IV . Q20H [facility] Rx#:[id number] Oral 500 593 Blood Product 0 254 0 Unit 0 Platelet Pheresis Pas 0 254 Psoralen Unit [id number] Other: Voiding Method Toilet Toilet # Voids 1 3 # Bowel Movements 1 - Exam No acute distress, oriented 3. No respiratory distress. Currently on room air. HEENT examination is grossly unremarkable. No further epistaxis. Significant ecchymoses of the upper lip. Nasal packing removed Neck supple. Full range of motion. No adenopathy thyromegaly or neck vein distention. Cardiovascular examination reveals regular rhythm rate. S1-S2 normal. No S3 or S4. No discernible murmur noted. Lungs reveal clear breath sounds. Breath sounds are equal bilaterally. No adventitious lung sounds including wheezes rhonchi or crackles. Abdomen soft bowel sounds are heard. No masses or tenderness. Extremities are intact. No cyanosis clubbing or edema. Skin is without rash or lesion. Neurologic examination is brief but nonfocal. - Labs CBC & Chem 7: 05/27/22 09:00 05/27/22 09:00 Labs: Abnormal Lab Results - Last 24 Hours (Table) 05/27/22 05/27/22 Range/Units 09:00 09:00 WBC 2.7 L (3.8-10.6) k/uL RBC 2.73 L (3.80-5.40) m/uL Hgb 8.5 L (11.4-16.0) gm/dL Hct 23.5 L (34.0-46.0) % Plt Count 8 L* (150-450) k/uL Lymphocytes # (Manual) 0.41 L (1.0-4.8) k/uL Creatinine 0.34 L (0.52-1.04) mg/dL Glucose 164 H (74-99) mg/dL Microbiology - Last 24 Hours (Table) 05/22/22 08:05 Blood Culture - Preliminary Blood No Growth after 120 hours 05/23/22 05:07 Blood Culture - Preliminary Blood No Growth after 96 hours 05/23/22 05:07 Blood Culture - Preliminary Blood No Growth after 96 hours 05/22/22 05:09 Blood Culture - Preliminary Blood No Growth after 120 hours Assessment and Plan Assessment: Sepsis secondary to Klebsiella pneumoniae. The patient was neutropenic post systemic treatment for AML. Patient currently on IV cefepime. Repeat blood cultures from May 23 show no growth at 96 hours. Hemodynamically stable and the patient is afebrile Neutropenic fever at the time of admission, confirmed to be septic, white cell count is still low with a low absolute neutrophil count Hypotension, the time of admission and this has recovered and the patient is currently normotensive History of acute myelocytic leukemia, status post chemotherapy, 2, most recently on 05/14/2022. HiDAC and gemtuzumab S/P fall, with facial trauma, and epistaxis. The nasal packing has been removed Pancytopenia. History of CVA. History of seizure disorder. History of neuropathy. Type 2 diabetes. History of gastric ulcer. Lifelong nonsmoker. Plan Patient's medications, labs were reviewed Patient has received another packed platelets Continue IV cefepime Nasal packing is removed, no evidence of any acute bleeding Transfuse with platelets per hematology recommendation, current count is 10,000 Afebrile Were initially seeing this patient due to critical care management on the ICU, she has hemodynamically stable at this time She is stable from a pulmonary standpoint, we will sign off the case, and see as needed. I have personally seen and examined the patient, performed the documentation and the assessment and plan as written. Number of minutes spent on the visit:10 This is a joint evaluation that was done along with a nurse practitioner. The patient has no signs of any active bleeding. The patient is going to receive additional platelet transfusions. No fever. No hemodynamic instability. Condition is stable. Rest of the treatment as per oncology. The patient got transferred out of the intensive care unit yesterday. Pulmonary critical care services will sign off and please contact us back should there be any issues with her care in the future. Evaluation was done in more than 10 minutes. Time with Patient: Less than 30
--- NOTE | 2022-05-27 15:54 | P.PN ---
Subjective Progress Note Date: 05/27/22 Principal diagnosis: Febrile neutropenia and bacteremia Patient is a 66-year-old female past medical history significant for acute myeloid leukemia CVA TIA seizure disorder last chemo on May 14, 2022 patient presented to the hospital 05/22/2022 because of the fever , patient did have a fall in hospital with significant epistaxis and bruising to the face area, blood cultures coming back positive with Klebsiella On today's evaluation that is 05/27/2022, the patient remains to be afebrile, the patient is breathing comfortably on room air, the patient denies chest pain shortness of breath , the patient denies any cough or sputum production no abdominal pain or diarrhea has been reported, slightly upset as the platelet count is low and she wants to go home Objective - Vital Signs Vital signs: Vital Signs Temp 98.2 F 05/27/22 13:20 Pulse 98 05/27/22 13:20 Resp 18 05/27/22 13:20 BP 130/79 05/27/22 13:20 Pulse Ox 100 05/27/22 13:20 FiO2 Intake & Output 05/26/22 05/27/22 05/27/22 18:59 06:59 18:59 Intake Total 460 1454 593 Balance 460 1454 593 Intake: IV 460 0.9 @ KVO 360 Cefepime 2 gm In Sodium 100 Chloride 0.9% 100 ml @ 25 mls/hr IVPB Q8HR [facility] Rx# :[id number] Intake, IV Titration 700 Amount Cefepime 2 gm In Sodium 100 Chloride 0.9% 100 ml @ 25 mls/hr IVPB Q8HR [facility] Rx# :[id number] Sodium Chloride 0.9% 1, 600 000 ml @ 50 mls/hr IV . Q20H [facility] Rx#:[id number] Oral 500 593 Blood Product 0 254 0 Unit 0 Platelet Pheresis Pas 0 254 Psoralen Unit [id number] Other: Voiding Method Toilet Toilet # Voids 1 3 # Bowel Movements 1 - Exam GENERAL DESCRIPTION: An elderly female up in the chair in no distress RESPIRATORY SYSTEM: Unlabored breathing , decreased breath sounds at bases HEART: S1 S2 regular rate and rhythm , ABDOMEN: Soft , no tenderness EXTREMITIES: No edema feet - Labs CBC & Chem 7: 05/27/22 09:00 05/27/22 09:00 Labs: Abnormal Lab Results - Last 24 Hours (Table) 05/27/22 05/27/22 Range/Units 09:00 09:00 WBC 2.7 L (3.8-10.6) k/uL RBC 2.73 L (3.80-5.40) m/uL Hgb 8.5 L (11.4-16.0) gm/dL Hct 23.5 L (34.0-46.0) % Plt Count 8 L* (150-450) k/uL Lymphocytes # (Manual) 0.41 L (1.0-4.8) k/uL Creatinine 0.34 L (0.52-1.04) mg/dL Glucose 164 H (74-99) mg/dL Microbiology - Last 24 Hours (Table) 05/22/22 08:05 Blood Culture - Preliminary Blood No Growth after 120 hours 05/23/22 05:07 Blood Culture - Preliminary Blood No Growth after 96 hours 05/23/22 05:07 Blood Culture - Preliminary Blood No Growth after 96 hours 05/22/22 05:09 Blood Culture - Preliminary Blood No Growth after 120 hours Assessment and Plan (1) Febrile neutropenia Current Visit: Yes Status: Acute Code(s): D70.9 - NEUTROPENIA, UNSPECIFIED; R50.81 - FEVER PRESENTING WITH CONDITIONS CLASSIFIED ELSEWHERE SNOMED Code(s): 370951709 (2) Bacteremia Current Visit: Yes Status: Acute Code(s): R78.81 - BACTEREMIA SNOMED Cod e(s): 1488921 Plan: 1-Patient presented to hospital with fever in this patient who did have history of acute myeloid leukemia on chemotherapy with a recent PICC line replacement for nonworking PICC line in this patient initial work-up including chest x-ray U A has been negative abdominal soft on clinical examination concern for possible PICC line infection,patient did have a fall with injury to the face no evidence of any fracture 2-patient blood culture has been finalized as Klebsiella, the patient did have a negative repeat blood cultures patient seemed to have shown clinical improvement, antibiotics switched to Rocephin 2 g daily as white count has improved and will be able to finish therapy with oral Cipro 10 days on discharge Time with Patient: Less than 30
[2022-05-27] MEDS: PANTOPRAZOLE 40 MG TABLET PO SCH (20:40)
[2022-05-28] MEDS: Acetaminophen-Codeine 300-30mg TAB PO PRN ×2 (00:24→08:58)
[2022-05-28] MEDS: SODIUM CHLORIDE 0.9% 1,000 ML IV SCH (06:27)
[2022-05-28 07:55] LABS: HCT 21.2 % (34.0-46.0); HGB 7.8 gm/dL (11.4-16.0); Hyperchromasia Slight; MCH 31.3 pg (25.0-35.0); MCHC 36.9 g/dL (31.0-37.0); MCV 84.9 fL (80.0-100.0); Mean Platelet Volume 8.1; Poikilocytosis Slight; RDW 13.1 % (11.5-15.5); WBC 4.5 k/uL (3.8-10.6)
[2022-05-28 07:58] LABS: Platelet Count 11 k/uL (150-450)
[2022-05-28 08:24] LABS: Lymphocytes # (M) 1.26 k/uL (1.0-4.8); Monocytes # (M) 1.22 k/uL (0-1.0); Neutrophils # (M) 2.03 k/uL (1.3-7.7); Neutrophils % (M) 45 %; Nucleated Red Blood Cells 0 /100 WBC (0-0); Total Cells Counted 100
[2022-05-28] MEDS: LACOSAMIDE 50 MG TABLET PO SCH ×2 (08:55→20:37)
[2022-05-28] MEDS: MAGNESIUM OXIDE 400 MG TAB PO SCH (08:58)
[2022-05-28] MEDS: PHENYTOIN SODIUM EXTENDED 100 MG CAP PO SCH ×3 (08:58→21:11)
[2022-05-28 10:26] VITALS: BMI 43.1
--- NOTE | 2022-05-28 12:40 | P.PN ---
Subjective From the records patient is 66-year-old lady with past medical significant for acute myeloid leukemia who presented to the ER because of fevers. Patient normally receives chemotherapy at [facility] with her last session being last week. Rolly taylor had a PICC line placed yesterday and received platelet transfusion, following that she started noticing fevers. There was no complain of shortness of breath. No complaint of any cough. Because of fever she became concerned and came to the ER, initial workup in the ER showed white count of 0.2, hemoglobin 11.3, platelet count 10, sodium 137, potassium 4.4, chloride 103, BUN 15, creatinine 0.4, lactic acid level initially was 2.4. Initial chest x-ray was negative for acute cardiac pulmonary process. Patient was started on broad- spectrum antibiotic and was admitted to internal medicine team. While in the floor patient had a fall, receiving trauma to her face.CT face as as well as CT head and neck showed no acute intrarenal process, no evidence of cervical spine fracture, no acute facial bone fractures., Did show soft tissue hematoma anterior to the maxilla with partial opacification of the left nasal cavity. Patient was having episodes of hypotension, patient received adequate fluid resuscitation but was still hypotensive so was transferred to ICU. 05/23. Patient seen and examined. White count this morning is 0.2, hemoglobin 7.4, platelet count 11k, sodium 134, potassium 3.6,. Vital signs morning are temperature 97.8, heart rate 88, blood pressure 126/67, on room air. No further episodes of epistaxis, nasal packing in place 05/24. Patient seen and examined. No acute overnight. Denies any epistaxis. White count today is 0.3, hemoglobin 7, platelet count 9. Potassium this morning is 3.3. Patient being transfused another unit of platelets and packed red blood cell 05/25. Patient seen and examined. T-max of 100.1 overnight, heart rate 98, blood pressure 130/72, room air. White count this morning is 0.3, hemoglobin 7.8, platelet count 8. Patient had nasal pack removed yesterday. Patient being transfused another unit of platelets. Some oozing of serous fluid seen from the nose, no stiven bleeding I started seeing the patient today 05/26/2022 This is a pleasant 66 years old female with a known case of acute myeloid leukemia undergoing chemotherapy, about one week prior to hospitalization she received chemotherapy and then presents because of generalized weakness and neutropenic fever, on the first day of admission she fell on her way down to the bathroom and hit her nose and she suffered from nasal fracture with epistaxis and hematoma and she's been evaluated by Otilia from ENT service and packing was provided and debridement is controlled. Patient has evidence of Klebsiella bacteremia and currently she is covered with cefepime shown interval improvement, she wasn't ICU for hypertension but now blood pressure is stable. Also pancytopenia is slowly progressive and his been followed closely by hematology/oncology team she was started on filgrastim today , her WBC 0.9, hemoglobin 8.1 and platelet count 10,000 after platelet transfusion yesterday where it was 8000. Sodium is 135. Currently she is on cefepime and normal saline 50 mL/h Also patient with a known history of subacute arachnoid and subdural hematoma with resultant seizure and currently on her home dose of lactose, and Keppra as well as Dilantin. Today patient is fully awake and oriented, sitting up in bed complaints. She is doing well and today she's going to move out of the ICU to the general medical floor 05/27/2022 Clinically she is doing well, she is sitting up in bed, she hasn't been tried to walk yet therefore we asked for physical therapy. However patient asking when she can go home because she feels better. She tolerates that well, no other symptoms or physical complaints today She's hemodynamically stable, afebrile CBC is improving after she was started on filgrastim She's continued on cefepime and normal saline 50 mL/h Repeat blood cultures negative Possible discharge in 24-48 hours if she keeps improving 05/28/2022 Patient sitting in chair looks comfortable, no new complaints. Her facial bruises are healing gradually Platelet count still 8 and she is receiving platelet transfusion. Hematology/ oncology team on the case. Antibiotic was adjusted to ceftriaxone. ID team on the case. Normal epistaxis No IV fluids Objective - Vital Signs Vital signs: Vital Signs Temp 98.3 F 05/28/22 11:25 Pulse 88 05/28/22 11:25 Resp 16 05/28/22 11:25 BP 121/72 05/28/22 11:25 Pulse Ox 100 05/28/22 11:25 FiO2 Intake & Output 05/27/22 05/28/22 05/28/22 18:59 06:59 18:59 Intake Total 936 1000 Balance 936 1000 Weight 110.4 kg Intake: IV 600 Sodium Chloride 0.9% 1, 600 000 ml @ 50 mls/hr IV . Q20H [facility] Rx#:[id number] Oral 593 400 Blood Product 343 Platelet Pheresis Pas 343 Psoralen Unit [id number] Other: Voiding Method Toilet # Voids 3 3 - Exam -GENERAL: The patient is alert and oriented x3, not in any acute distress. Well developed, well nourished. Generally weak -HEENT: Pupils are round and equally reacting to light. EOMI. No scleral icterus. No conjunctival pallor. Normocephalic, atraumatic. No pharyngeal erythema. No thyromegaly. Bilateral nasal bruising is improving CARDIOVASCULAR: S1 and S2 present. No murmurs, rubs, or gallops. PULMONARY: Chest is clear to auscultation, no wheezing or crackles. ABDOMEN: Soft, nontender, nondistended, normoactive bowel sounds. No palpable organomegaly. MUSCULOSKELETAL: No joint swelling or deformity. EXTREMITIES: No cyanosis, clubbing, or pedal edema. NEUROLOGICAL: Gross neurological examination did not reveal any focal deficits. SKIN: No rashes. no petechiae. - Labs CBC & Chem 7: 05/28/22 07:12 05/27/22 09:00 Labs: Abnormal Lab Results - Last 24 Hours (Table) 05/27/22 05/28/22 Range/Units 09:00 07:12 RBC 2.50 L (3.80-5.40) m/uL Hgb 7.8 L (11.4-16.0) gm/dL Hct 21.2 L (34.0-46.0) % Plt Count 11 L* (150-450) k/uL Lymphocytes # (Manual) 0.41 L (1.0-4.8) k/uL Monocytes # (Manual) 1.22 H (0-1.0) k/uL Microbiology - Last 24 Hours (Table) 05/22/22 08:05 Blood Culture - Final Blood No Growth after 144 hours 05/23/22 05:07 Blood Culture - Preliminary Blood No Growth after 120 hours 05/23/22 05:07 Blood Culture - Preliminary Blood No Growth after 120 hours 05/22/22 05:09 Blood Culture - Final Blood No Growth after 144 hours Assessment and Plan Assessment: Klebsiella bacteremia Neutropenic fever Pancytopenia secondary to chemotherapy and myeloid leukemia AML Fall with nasal fracture, healing History of subarachnoid and subdural hematoma History of seizure Mild hypernatremia improving Plan: Continued to with cefepime Continue with gentle hydration Several consultants on the case including hematology oncology, infectious dise ase team, pulmonary/surgical care team and patient evaluated by ENT Continue seizure medication Continue with filgrastim per oncology team Labs and medication were reviewed.. Continue same treatment. Continue with symptomatic treatment. Resume home medication. Monitor labs and vitals. DVT and GI prophylaxis. Further recommendations as per clinical course of the patient DVT prophylaxis: no Subcutaneous heparin for severe thrombocytopenia and bleeding GI Prophylaxis: Ppi PT/OT: Pending Prognosis is guarded
--- NOTE | 2022-05-28 13:15 | P.PN ---
Subjective Progress Note Date: 05/28/22 Principal diagnosis: Febrile neutropenia and bacteremia Patient is a 66-year-old female past medical history significant for acute myeloid leukemia CVA TIA seizure disorder last chemo on May 14, 2022 patient presented to the hospital 05/22/2022 because of the fever , patient did have a fall in hospital with significant epistaxis and bruising to the face area, blood cultures coming back positive with Klebsiella On today's evaluation that is 05/28/2022, the patient continues to be afebrile, the patient is breathing comfortably on room air, the patient denies chest pain shortness of breath , the patient denies any cough or sputum production no abdominal pain or diarrhea has been reported, no new symptoms Objective - Vital Signs Vital signs: Vital Signs Temp 98.3 F 05/28/22 11:25 Pulse 88 05/28/22 11:25 Resp 16 05/28/22 11:25 BP 121/72 05/28/22 11:25 Pulse Ox 100 05/28/22 11:25 FiO2 Intake & Output 05/27/22 05/28/22 05/28/22 18:59 06:59 18:59 Intake Total 936 1000 Balance 936 1000 Weight 110.4 kg Intake: IV 600 Sodium Chloride 0.9% 1, 600 000 ml @ 50 mls/hr IV . Q20H [facility] Rx#:[id number] Oral 593 400 Blood Product 343 Platelet Pheresis Pas 343 Psoralen Unit [id number] Other: Voiding Method Toilet # Voids 3 3 - Exam GENERAL DESCRIPTION: An elderly female up in the chair in no distress RESPIRATORY SYSTEM: Unlabored breathing , decreased breath sounds at bases HEART: S1 S2 regular rate and rhythm , ABDOMEN: Soft , no tenderness EXTREMITIES: No edema feet - Labs CBC & Chem 7: 05/28/22 07:12 05/27/22 09:00 Labs: Abnormal Lab Results - Last 24 Hours (Table) 05/27/22 05/28/22 Range/Units 09:00 07:12 RBC 2.50 L (3.80-5.40) m/uL Hgb 7.8 L (11.4-16.0) gm/dL Hct 21.2 L (34.0-46.0) % Plt Count 11 L* (150-450) k/uL Lymphocytes # (Manual) 0.41 L (1.0-4.8) k/uL Monocytes # (Manual) 1.22 H (0-1.0) k/uL Microbiology - Last 24 Hours (Table) 05/22/22 08:05 Blood Culture - Final Blood No Growth after 144 hours 05/23/22 05:07 Blood Culture - Preliminary Blood No Growth after 120 hours 05/23/22 05:07 Blood Culture - Preliminary Blood No Growth after 120 hours 05/22/22 05:09 Blood Culture - Final Blood No Growth after 144 hours Assessment and Plan (1) Febrile neutropenia Current Visit: Yes Status: Acute Code(s): D70.9 - NEUTROPENIA, UNSPECIFIED; R50.81 - FEVER PRESENTING WITH CONDITIONS CLASSIFIED ELSEWHERE SNOMED Code(s): 276678738 (2) Bacteremia Current Visit: Yes Status: Acute Code(s): R78.81 - BACTEREMIA SNOMED Code(s): 8726324 Plan: 1-Patient presented to hospital with fever in this patient who did have history of acute myeloid leukemia on chemotherapy with a recent PICC line replacement for nonworking PICC line in this patient initial work-up including chest x-ray UA has been negative abdominal soft on clinical examination concern for possible PICC line infection,patient did have a fall with injury to the face no evidence of any fracture 2-patient blood culture has been finalized as Klebsiella, the patient did have a negative repeat blood cultures patient seemed to have shown clinical improvement, patient to continue with Rocephin 2 g daily as white count has improved and will be able to finish therapy with oral Cipro 10 days on discharge, also recommending repeating blood cultures from the PICC line 4-7 days after completion of her antibiotic therapy Family the bedside questions were answered
--- NOTE | 2022-05-28 14:20 | P.PN ---
Subjective Progress Note Date: 05/28/22 Principal diagnosis: neutropenic fever, hx AML At today's visit patient is resting comfortably in bedside chair. epistaxis has resolved, patient reports clear nasal drainage. She reports feeling well and improved. she is ready to go home. Patient denies nausea vomiting diarrhea. Remains afebrile. She denies pain at this time. Platelets 11.000 today, additional unit platelets ordered. WBCs continues to improve, or 4.5 today, ANC 2000. No other reported complaints Objective - Vital Signs Vital signs: Vital Signs Temp 98.3 F 05/28/22 11:25 Pulse 88 05/28/22 11:25 Resp 16 05/28/22 11:25 BP 121/72 05/28/22 11:25 Pulse Ox 100 05/28/22 11:25 FiO2 Intake & Output 05/27/22 05/28/22 05/28/22 18:59 06:59 18:59 Intake Total 936 1000 Balance 936 1000 Weight 110.4 kg Intake: IV 600 Sodium Chloride 0.9% 1, 600 000 ml @ 50 mls/hr IV . Q20H [facility] Rx#:[id number] Oral 593 400 Blood Product 343 Platelet Pheresis Pas 343 Psoralen Unit [id number] Other: Voiding Method Toilet # Voids 3 3 - Constitutional General appearance: Present: average body habitus, no acute distress - EENT Eyes: Present: anicteric sclerae, EOMI ENT: Present: hearing grossly normal - Respiratory Details: breathing even and unlabored - Cardiovascular Details: skin warm and dry - Integumentary Integumentary: Present: pale - Neurologic Neurologic Comment(s): grossly intact - Musculoskeletal Musculoskeletal: Present: generalized weakness - Psychiatric Psychiatric: Present: A&O x's 3, appropriate affect, intact judgment & insight - Labs CBC & Chem 7: 05/28/22 07:12 05/27/22 09:00 Labs: Abnormal Lab Results - Last 24 Hours (Table) 05/28/22 Range/Units 07:12 RBC 2.50 L (3.80-5.40) m/uL Hgb 7.8 L (11.4-16.0) gm/dL Hct 21.2 L (34.0-46.0) % Plt Count 11 L* (150-450) k/uL Monocytes # (Manual) 1.22 H (0-1.0) k/uL Microbiology - Last 24 Hours (Table) 05/22/22 08:05 Blood Culture - Final Blood No Growth after 144 hours 05/23/22 05:07 Blood Culture - Preliminary Blood No Growth after 120 hours 05/23/22 05:07 Blood Culture - Preliminary Blood No Growth after 120 hours 05/22/22 05:09 Blood Culture - Final Blood No Growth after 144 hours Assessment and Plan (1) Neutropenic fever Current Visit: Yes Status: Acute Code(s): D70.9 - NEUTROPENIA, UNSPECIFIED; R50.81 - FEVER PRESENTING WITH CONDITIONS CLASSIFIED ELSEWHERE SNOMED Code(s): 957694111 (2) Acute myeloid leukemia Current Visit: Yes Status: Chronic Priority: High Code(s): C92.00 - ACUTE MYELOBLASTIC LEUKEMIA, NOT HAVING ACHIEVED REMISSION SNOMED Code(s): 01790912 Plan: Neutropenic fever -She received HiDAC and gemtuzumab consolidative chemotherapy the week of 05/10/2022 to 05/14/2022 and subsequently received Neulasta on 05/15/2022. WBC 0.[address]. [address] Bradley her oncologist at [facility] and he recommended not to give granix at this time due to neulasta being given on 05/15. Granix given x 1 dose, WBC continues to improve, WBC 4.5, ANC 2.0 -She was noted to have fever on 05/21/2022 with no other localizing signs or symptoms. No fever in last 72 hrs -Chest x-ray revealed no acute process concerning for infection -Blood cultures from admission are positive from Klebsiella pneumonia, which is likely due to translocation from the gut given recent HiDAC chemotherapy. Repeat blood cultures negative -She continues on IV antibiotics. ID following -Will continue to monitor counts Core binding factor AML -Received 7+3 induction chemotherapy in December 2021 -This was complicated by subdural and subarachnoid hemorrhage along with seizures -Repeat bone marrow biopsy in February 2022 revealed complete remission -She was evaluated at [facility] [place] and given her translocation (8;21) she was determined to be a candidate for consolidative chemotherapy as opposed to proceeding with allogenic stem cell transplant -She received cycle 1 of HiDAC and gemtuzumab on 05/10/2022 and was discharged on 05/14/2022. She received Neulasta on 05/15/2022 -She likely has pancytopenia that is chemotherapy-induced along with superimposed Klebsiella pneumoniae bacteremia. -DIC workup negative -Transfuse for hemoglobin less than 7 and/or platelet count less than 20,000 due to her history of intracranial hemorrhage -Platelets 11,000 today, 1 unit of pheresis platelets ordered. Has received 7 units platelets during this admission. Hemoglobin 7.8, receiving 2 units PRBCs, last unit on 05/24. Once platelets are closer to 20,000 and is not needing platelet infusions daily, pt will be cleared for discharge with close outpatient f/u.
[2022-05-28] MEDS: NYSTATIN 100,000UNIT/GM CREAM 30 GM TUBE TOPICAL SCH (20:37)
[2022-05-28] MEDS: PANTOPRAZOLE 40 MG TABLET PO SCH (20:37)
[2022-05-29] MEDS: SODIUM CHLORIDE 0.9% 1,000 ML IV SCH (02:24)
[2022-05-29 07:07] LABS: HCT 23.6 % (34.0-46.0); HGB 8.4 gm/dL (11.4-16.0); Hyperchromasia Slight; MCH 31.1 pg (25.0-35.0); MCHC 35.8 g/dL (31.0-37.0); MCV 86.8 fL (80.0-100.0); Mean Platelet Volume 8.4; Poikilocytosis Slight; RBC 2.71 m/uL (3.80-5.40); RDW 13.2 % (11.5-15.5); WBC 4.6 k/uL (3.8-10.6)
[2022-05-29 07:09] LABS: Platelet Count 21 k/uL (150-450)
[2022-05-29 07:59] LABS: Band Neutrophils % 2 %; Lymphocytes # (M) 1.06 k/uL (1.0-4.8); Monocytes # (M) 0.32 k/uL (0-1.0); Neutrophils % (M) 68 %; Nucleated Red Blood Cells 0 /100 WBC (0-0); Total Cells Counted 100
[2022-05-29 08:00] LABS: Poikilocytosis (M) Present
[2022-05-29] MEDS: LACOSAMIDE 50 MG TABLET PO SCH (09:03)
[2022-05-29] MEDS: MAGNESIUM OXIDE 400 MG TAB PO SCH (09:04)
[2022-05-29] MEDS: PHENYTOIN SODIUM EXTENDED 100 MG CAP PO SCH ×2 (09:04→15:08)
[2022-05-29] MEDS: NYSTATIN 100,000UNIT/GM CREAM 30 GM TUBE TOPICAL SCH (09:04)
[2022-05-29] MEDS: Acetaminophen-Codeine 300-30mg TAB PO PRN (09:19)
[2022-05-29 11:35] VITALS: BP 139/79; PULSE 83; RESP 18; TEMP 98
--- NOTE | 2022-05-29 22:11 | P.DS ---
Providers Date of admission: 05/21/22 23:48 Attending physician: Barrett Celis MD Consults: 05/21/22 23:45 Consult Physician Urgent Consulting Provider: Avi Parisi Consult Reason/Comments: neutropenic fever Do you want consulting provider notified?: Yes 05/21/22 23:54 Consult Physician Urgent Consulting Provider: Jace Reyez Consult Reason/Comments: neutropenic fever Do you want consulting provider notified?: Yes 05/22/22 06:55 Consult Physician Stat Consulting Provider: Bruce Umaña Consult Reason/Comments: facial trauma Do you want consulting provider notified?: Yes, Notify in am 05/22/22 09:13 Consult Physician Urgent Consulting Provider: Kenneth Wilde Consult Reason/Comments: hypotension Do you want consulting provider notified?: Already Contacted Primary care physician: Kenneth Govea [facility] Course: Diagnoses: Klebsiella bacteremia Neutropenic fever Pancytopenia secondary to chemotherapy and acute myeloid leukemia AML Fall with nasal fracture, healing History of subarachnoid and subdural hematoma History of seizure Mild hypernatremia improving Hospital course: patient is 66-year-old lady with past medical significant for acute myeloid leukemia who presented to the ER because of fevers. Patient normally receives chemotherapy at [facility] with her last session being last week. Patient had a PICC line placed yesterday and received platelet transfusion, following that she started noticing fevers. There was no complain of shortness of breath. No complaint of any cough. Because of fever she became concerned and came to the ER, initial workup in the ER showed white count of 0.2, hemoglobin 11.3, platelet count 10, also she had fever on admission. Patient was diagnosed with neutropenic fever and she was started on broad-spectrum an tibiotics. On the first day of admission she fell on her face and she has facial trauma. CT face as as well as CT head and neck showed no acute intrarenal process, no evidence of cervical spine fracture, no acute facial bone fractures., Did show soft tissue hematoma anterior to the maxilla with partial opacification of the left nasal cavity. Patient was having episodes of hypotension, patient received adequate fluid resuscitation but was still hypotensive so was transferred to ICU. ENT team evaluated the patient and her epistaxis stopped. Her mentation is improved back to baseline. Her blood pressure improved and she was transferred to the general medical floor Patient has been evaluated by several consultants including certified technician oncologist, critical care team and infectious disease team. Today patient is back to baseline, she is fully awake and oriented, she denies any chest pain or dyspnea. No urinary or GI complaints. Fever subsided. Her Klebsiella bacteremia has cleared and her IV antibiotic of ceftriaxone and cefepime was switched to Cipro 10 days upon discharge per recommendation of ID team Patient was cleared for discharge by all consultants including ID team, p ulmonary/critical care team and certified technician team. Problems and management plan were discussed with the patient and he verbalized understanding and acceptance Patient was found stable and can be discharged home in guarded prognosis however he needs follow-up as an outpatient. Patient was instructed to follow up with PCP Dr. Govea within one week and patient agrees Patient was instructed to follow up with her oncologist Dr. Parisi in 1-[address] Umaña in 1-2 weeks and she agrees to call and make an appointment Physical therapist recommended home health care which was ordered Physical exam -Gen: patient is a AAOx3, no distress. Facial bruising is feeling CVS: S1-S2, RRR, no murmur Lungs: B/L CTA, no wheezing Abdomen: soft, no distention, no tenderness, positive bowel sounds Extremity: no leg edema or induration Time spent more than 35 minutes Patient Condition at Discharge: Serious Plan - Discharge Summary Discharge Rx Participant: No New Discharge Prescriptions: New Ciprofloxacin HCl [Cipro] 500 mg PO Q12HR 10 Days #20 tab Acetaminophen Tab [Tylenol] 650 mg PO Q8HR PRN tab PRN Reason: Fever Continue Verapamil HCl [Verelan Pm] 100 mg PO HS Pantoprazole [Protonix] 40 mg PO HS Magnesium Oxide [Mag-Ox] 400 mg PO DAILY levETIRAcetam [Keppra] 1,500 mg PO BID Phenytoin Sodium Extended [Dilantin] 100 mg PO TID amantadine HCL [Amantadine] 100 mg PO BID Lacosamide 200 mg PO BID Docusate Sodium [Dok] 100 mg PO BID PRN PRN Reason: Constipation Losartan [Cozaar] 25 mg PO HS No Action Acyclovir 400 mg PO BID Discharge Medication List Lacosamide 200 mg PO BID 03/02/22 [History] Magnesium Oxide [Mag-Ox] 400 mg PO DAILY 03/02/22 [History] Pantoprazole [Protonix] 40 mg PO HS 03/02/22 [History] Phenytoin Sodium Extended [Dilantin] 100 mg PO TID 03/02/22 [History] Verapamil HCl [Verelan Pm] 100 mg PO HS 03/02/22 [History] amantadine HCL [Amantadine] 100 mg PO BID 03/02/22 [History] Acyclovir 400 mg PO BID 05/20/22 [History] Docusate Sodium [Dok] 100 mg PO BID PRN 05/22/22 [History] Losartan [Cozaar] 25 mg PO HS 05/22/22 [History] levETIRAcetam [Keppra] 1,500 mg PO BID 05/22/22 [History] Acetaminophen Tab [Tylenol] 650 mg PO Q8HR PRN tab 05/29/22 [Rx] Ciprofloxacin HCl [Cipro] 500 mg PO Q12HR 10 Days #20 tab 05/29/22 [Rx] Follow up Appointment(s)/Referral(s): Avi Parisi MD [STAFF PHYSICIAN] - 1 Week Bruce Umaña DO [Doctor of Osteopathic Medicine] - 1 Week Kenneth Govea MD [Primary Care Provider] - 1-2 days Patient Instructions/Handouts: Ciprofloxacin (By mouth) Activity/Diet/Wound Care/Special Instructions: heart healthy diet activity is restricted till you see your doctor Discharge Disposition: HOME WITH HOME HEALTH SERVICES
== END 2022-05-29 15:35 | disposition home health service (06) | DRG 871 ==
LOC: EC 20:19 → 5NMEDONC 23:48 → 3SCARD 05-22 04:59 → 2SICU 05-22 08:43 → 5NMEDONC 05-26 17:49
PROVIDERS: ADMIT Internal Medicine; ATTEND Internal Medicine
PROC: 2Y41X5Z Packing of Nasal Region using Packing Material (ICD-10-PCS; principal; 2022-05-22)
PROC: 30233R1 Transfusion of Nonautologous Platelets into Peripheral Vein, Percutaneous Approach (ICD-10-PCS; 2022-05-22)
PROC: 30233N1 Transfusion of Nonautologous Red Blood Cells into Peripheral Vein, Percutaneous Approach (ICD-10-PCS; 2022-05-22)
DX: A41.59 Other Gram-negative sepsis (principal); D61.810 Antineoplastic chemotherapy induced pancytopenia; C92.00 Acute myeloblastic leukemia, not having achieved remission; E87.0 Hyperosmolality and hypernatremia; Z68.41 Body mass index [BMI] 40.0-44.9, adult; S02.2XXA Fracture of nasal bones, initial encounter for closed fracture; W01.0XXA Fall on same level from slipping, tripping and stumbling without subsequent striking against object, initial encounter; Y92.230 Patient room in hospital as the place of occurrence of the external cause; T45.1X5A Adverse effect of antineoplastic and immunosuppressive drugs, initial encounter; D70.1 Agranulocytosis secondary to cancer chemotherapy; R50.81 Fever presenting with conditions classified elsewhere; E66.9 Obesity, unspecified; I95.9 Hypotension, unspecified; S01.511A Laceration without foreign body of lip, initial encounter; J34.2 Deviated nasal septum; I10 Essential (primary) hypertension; G40.909 Epilepsy, unspecified, not intractable, without status epilepticus; G62.9 Polyneuropathy, unspecified; K42.9 Umbilical hernia without obstruction or gangrene; R91.8 Other nonspecific abnormal finding of lung field; Z20.822 Contact with and (suspected) exposure to COVID-19; Z86.73 Personal history of transient ischemic attack (TIA), and cerebral infarction without residual deficits; Z79.899 Other long term (current) drug therapy; Z71.3 Dietary counseling and surveillance; Z91.040 Latex allergy status; Z88.5 Allergy status to narcotic agent
CPT/HCPCS: 36415; 70450; 70486; 71046; 72125; 80048; 80053; 81001; 83605; 83735; 84145; 84484; 85025; 85027; 85384; 85610; 85730; 86850; 86900; 86901; 86920; 87040; 87077; 87186; 87636; 93005; 94760; 96360; 96361; 99285

== ENCOUNTER 2022-07-02 10:58 | Emergency (ER) | payer MEDICARE ==
--- NOTE | 2022-07-02 12:06 | ED ---
General Adult HPI - General Chief complaint: Recheck/Abnormal Lab/Rx Stated complaint: Abnormal labs Time Seen by Provider: 07/02/22 11:29 Source: patient, family, RN notes reviewed Mode of arrival: wheelchair Limitations: no limitations - History of Present Illness Initial comments: Patient is a pleasant 66-year-old female presenting to the emergency department with concern for platelet level. Patient does have AML. Patient is on chemotherapy, last was 1 week ago. Patient does have history of low platelets. Platelet level was 62 days ago and patent did receive transfusion here patient states she does feel fine. No bleeding. No bruising. No headache or confusion. - Related Data Home Medications Medication Instructions Recorded Confirmed Lacosamide 200 mg PO BID 03/02/22 07/02/22 Magnesium Oxide [Mag-Ox] 400 mg PO HS 03/02/22 07/02/22 Pantoprazole [Protonix] 40 mg PO HS 03/02/22 07/02/22 Phenytoin Sodium Extended 100 mg PO TID 03/02/22 07/02/22 [Dilantin] Verapamil HCl [Verelan Pm] 100 mg PO HS 03/02/22 07/02/22 amantadine HCL [Amantadine] 100 mg PO BID 03/02/22 07/02/22 levETIRAcetam [Keppra] 1,500 mg PO BID 05/22/22 07/02/22 Acyclovir [Zovirax] 400 mg PO BID 07/02/22 07/02/22 Fluconazole [Diflucan] 100 mg PO DAILY PRN 07/02/22 07/02/22 Ondansetron [Zofran] 4 mg PO Q6H PRN 07/02/22 07/02/22 Triamcinolone 0.1% Ointment 1 applic TOPICAL TID PRN 07/02/22 07/02/22 [Kenalog 0.1% Ointment] prednisoLONE ACETATE 1% OPHTH 1 drop BOTH EYES TID 07/02/22 07/02/22 [Pred Forte 1%] Previous Rx's Medication Instructions Recorded Acetaminophen Tab [Tylenol] 650 mg PO Q8HR PRN tab 05/29/22 Ciprofloxacin HCl [Cipro] 500 mg PO Q12HR 10 Days #20 tab 05/29/22 Allergies Allergy/AdvReac Type Severity Reaction Status Date / Time latex Allergy Itching Verified 07/02/22 12:57 hydrocodone [From Vicodin] AdvReac Nausea & Verified 07/02/22 12:57 Vomiting & Diarrhea Review of Systems ROS Statement: Those systems with pertinent positive or pertinent negative responses have been documented in the HPI. ROS Other: All systems not noted in ROS Statement are negative. Constitutional: Denies: fever Eyes: Denies: eye pain ENT: Denies: ear pain Respiratory: Denies: cough Cardiovascular: Denies: chest pain Endocrine: Denies: fatigue Gastrointestinal: Denies: abdominal pain Skin: Reports: as per HPI. Denies: rash, lesions 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 at [facility]-PT HAD A STROKE, BRAIN BLEED AND SEIZURE FOLLOWING TR EATMENT, neuropathy bilateral feet, heart palpitations, enlarged heart, benign lung nodules, gastric ulcer History of Any Multi-Drug Resistant Organisms: None Reported Past Surgical History: Section, Cholecystectomy, Hernia Repair, Orthopedic Surgery Additional Past Surgical History / Comment(s): 12/10/21 BMA, double lumen PICC, cholecystectomy/umbilical hernia repair, open repair umbilical hernia/partial omenectomy, surgery to remove uterine fibroids, L oophorectomy, R partial oophorectomy, surgery for nasal fracture, surgery to remove tailbone cysts, R shoulder surgery. Past Anesthesia/Blood Transfusion Reactions: Previous Problems w/ Anesthesia, Postoperative Nausea & Vomiting (PONV) Additional Past Anesthesia/Blood Transfusion Reaction / Comment(s): "very hard coming out of anesthesia" Past Psychological History: No Psychological Hx Reported Smoking Status: Never smoker Past Alcohol Use History: None Reported Past Drug Use History: None Reported - Past Family History Father Family Medical History: Congestive Heart Failure (CHF) Additional Family Medical History / Comment(s): at age 83, possibly from heart issues- unsure. Mother Family Medical History: CVA/TIA, Deep Vein Thrombosis (DVT) Additional Family Medical History / Comment(s): at age 77 from cva General Exam Limitations: no limitations General appearance: alert, in no apparent distress Head exam: Present: atraumatic Eye exam: Present: normal appearance, PERRL Neck exam: Present: normal inspection Respiratory exam: Present: normal lung sounds bilaterally Cardiovascular Exam: Present: regular rate, normal rhythm GI/Abdominal exam: Present: soft. Absent: tenderness Extremities exam: Present: normal inspection Neurological exam: Present: alert Psychiatric exam: Present: normal affect, normal mood Skin exam: Present: normal color. Absent: rash Course Vital Signs 07/02/22 07/02/22 11:22 11:35 Temperature 98.2 F 98.4 F Pulse Rate 88 91 Respiratory 20 16 Rate Blood Pressure 117/84 130/45 O2 Sat by Pulse 100 97 Oximetry EKG Findings - EKG Results: EKG: interpreted by ERMD (L [place]. [facility] sinus rhythm, normal ST/T Medical Decision Making - Medical Decision Making Was pt. sent in by a medical professional or institution (, [employer], [employer], urgent care, hospital, or senior living...) When possible be specific @ -Patient was sent from oncology office Did you speak to anyone other than the patient for history (EMS, parent, family, police, friend...)? What history was obtained from this source @ -Family is present and helps confirm history and she'll recently Did you review nursing and triage notes (agree or disagree)? Why? @ -I reviewed and agree with nursing and triage notes Were old charts reviewed (outside hosp., previous admission, EMS record, old EKG, old radiological studies, urgent care reports/EKG's, senior living records)? Report findings @ -Labs reviewed from outpatient this week Differential Diagnosis (chest pain, altered mental status, abdominal pain women, abdominal pain men, vaginal bleeding, weakness, fever, dyspnea, syncope, headache, dizziness, GI bleed, back pain, seizure, CVA, palpatations, mental health)? @ -not applicable EKG interpreted by me (3pts min.). @ -As above X-rays interpreted by me (1pt min.). @ -None done CT interpreted by me (1pt min.). @ -None done U/S interpreted by me (1pt. min.). @ -None done What testing was considered but not performed or refused? (CT, X-rays, U/S, labs)? Why? @ -None What meds were considered but not given or refused? Why? @ -None Did you discuss the management of the patient with other professionals (pr ofessionals i.e. Dr., PA, [employer], lab, RT, psych nurse, social media project manager, prn physical therapist, teacher, rating officer, watch caser)? Give summary @ -I did speak with practitioner Donis Arora with oncology who would like patient to have irradiated platelets and can be discharged following that Was smoking cessation discussed for >3mins.? @ -No Was critical care preformed (if so, how long)? @ -No Were there social determinants of health that impacted care today? How? (Homelessness, low income, unemployed, alcoholism, drug addiction, transportation, low edu. Level, literacy, decrease access to med. care, snf, rehab)? @ -No Was there de-escalation of care discussed even if they declined (Discuss DNR or withdrawal of care, Hospice)? DNR status @ -No What co-morbidities impacted this encounter? (DM, HTN, Smoking, COPD, CAD, Cancer, CVA, ARF, Chemo, Hep., AIDS, mental health diagnosis, sleep apnea, morbid obesity)? @ -None Was patient admitted / discharged? Hospital course, mention meds given and route, prescriptions, significant lab abnormalities, going to OR and other pertinent info. @ -Patient will receive platelet transfusion and discharge. I did discuss this with blood bank. They were notified of needs further irradiated platelets Undiagnosed new problem with uncertain prognosis? @ -No Drug Therapy requiring intensive monitoring for toxicity (Heparin, Nitro, Insulin, Cardizem)? @ -Patient will be monitoring with platelet transfusion Were any procedures done? @ -No Diagnosis/symptom? @ -Thrombocytopenia Acute, or Chronic, or Acute on Chronic? @ -Acute Uncomplicated (without systemic symptoms) or Complicated (systemic symptoms)? @ -default Side effects of treatment? @ -No Exacerbation, Progression, or Severe Exacerbation? @ -No Poses a threat to life or bodily function? How? (Chest pain, [place], [place], pneumonia, PE, COPD, DKA, ARF, appy, cholecystitis, CVA, Diverticulitis, Homicidal, Suicidal, threat to staff... and all critical care pts) @ -No - Lab Data Result diagrams: 07/02/22 12:17 Lab Results 07/02/22 07/02/22 Range/Units 12:17 12:30 Sodium 139 (137-145) mmol/L Potassium 4.0 (3.5-5.1) mmol/L Chloride 102 (98-107) mmol/L Carbon Dioxide 29 (22-30) mmol/L Anion Gap 8 mmol/L BUN 15 (7-17) mg/dL Creatinine 0.44 L (0.52-1.04) mg/dL Est GFR (CKD-EPI)AfAm >90 (>60 ml/min/1.73 sqM) Est GFR (CKD-EPI)NonAf >90 (>60 ml/min/1.73 sqM) Glucose 151 H (74-99) mg/dL Calcium 8.9 (8.4-10.2) mg/dL Blood Type O Positive Blood Type Recheck O Pos Bld Type Recheck Status No Spec Expiration Date 07/05/20222329 Disposition Clinical Impression: Thrombocytopenia Disposition: HOME SELF-CARE Condition: Stable Instructions (If sedation given, give patient instructions): Thrombocytopenia (ED) Additional Instructions: Please do follow-up with your oncologist in the next one or 2 days for recheck. Please also follow-up with primary care physician. You will need platelets rechecked again within just the next couple days. Return for bleeding, weakness, rash, change in mental status, worsening symptoms or any other concerns. Is patient prescribed a controlled substance at d/c from ED?: No Referrals: Avi Parisi MD [STAFF PHYSICIAN] - 1-2 days Forms: Area PCPs Time of Disposition: 13:10
[2022-07-02 12:57] LABS: Anisocytosis Slight; HCT 28.3 % (34.0-46.0); HGB 10.1 gm/dL (11.4-16.0); MCH 33.6 pg (25.0-35.0); MCHC 35.8 g/dL (31.0-37.0); Mean Platelet Volume 8.1; RBC 3.01 m/uL (3.80-5.40); RDW 16.2 % (11.5-15.5)
[2022-07-02 12:59] LABS: African American GFR (CKD) >90 (>60 ml/min/1.73 sqM); Anion Gap 8 mmol/L; Blood Urea Nitrogen 15 mg/dL (7-17); Calcium 8.9 mg/dL (8.4-10.2); Carbon Dioxide 29 mmol/L (22-30); Chloride 102 mmol/L (98-107); Glucose 151 mg/dL (74-99); Non-African American GFR(CKD) >90 (>60 ml/min/1.73 sqM); Sodium 139 mmol/L (137-145)
[2022-07-02 13:18] LABS: WBC 0.2 k/uL (3.8-10.6)
[2022-07-02 13:19] LABS: MCV 94.1 fL (80.0-100.0)
[2022-07-02 13:20] LABS: Platelet Count 4 k/uL (150-450)
[2022-07-02 16:29] VITALS: RESP 18
[2022-07-02 19:13] VITALS: BP 116/76; PULSE 84; TEMP 98.4
== END 2022-07-02 19:19 | disposition home or self-care (01) ==
LOC: EC 10:58
DX: D69.6 Thrombocytopenia, unspecified (principal); Z86.73 Personal history of transient ischemic attack (TIA), and cerebral infarction without residual deficits; Z91.040 Latex allergy status; Z88.5 Allergy status to narcotic agent; Z79.899 Other long term (current) drug therapy
CPT/HCPCS: 36415; 93005; 86900; 86901; 80048; 85025; 86850; 99284; 36430; P9073

== ENCOUNTER 2022-07-06 10:34 | Inpatient (IN) | payer MEDICARE ==
--- NOTE | 2022-07-06 12:10 | ED ---
General Adult HPI - General Chief complaint: Recheck/Abnormal Lab/Rx Stated complaint: Recheck Time Seen by Provider: 07/06/22 11:29 Source: patient, family, RN notes reviewed Mode of arrival: ambulatory Limitations: no limitations - History of Present Illness Initial comments: 66-year-old female presents emergency department with chief complaint of low platelets. Patient states that she was at her oncologist office this morning and was found to have platelets less than 5. Patient was here on Tuesday for transfusion. 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 She denies any excessive bleeding she has noticed small amount of bruising to her lower extremity. She denies any rectal bleeding, hematuria, headache or dizziness. Patient states she feels her normal self. - Related Data Home Medications Medication Instructions Recorded Confirmed Lacosamide 200 mg PO BID 03/02/22 07/02/22 Magnesium Oxide [Mag-Ox] 400 mg PO HS 03/02/22 07/02/22 Pantoprazole [Protonix] 40 mg PO HS 03/02/22 07/02/22 Phenytoin Sodium Extended 100 mg PO TID 03/02/22 07/02/22 [Dilantin] Verapamil HCl [Verelan Pm] 100 mg PO HS 03/02/22 07/02/22 amantadine HCL [Amantadine] 100 mg PO BID 03/02/22 07/02/22 levETIRAcetam [Keppra] 1,500 mg PO BID 05/22/22 07/02/22 Acyclovir [Zovirax] 400 mg PO BID 07/02/22 07/02/22 Fluconazole [Diflucan] 100 mg PO DAILY PRN 07/02/22 07/02/22 Ondansetron [Zofran] 4 mg PO Q6H PRN 07/02/22 07/02/22 Triamcinolone 0.1% Ointment 1 applic TOPICAL TID PRN 07/02/22 07/02/22 [Kenalog 0.1% Ointment] prednisoLONE ACETATE 1% OPHTH 1 drop BOTH EYES TID 07/02/22 07/02/22 [Pred Forte 1%] Previous Rx's Medication Instructions Recorded Acetaminophen Tab [Tylenol] 650 mg PO Q8HR PRN tab 05/29/22 Ciprofloxacin HCl [Cipro] 500 mg PO Q12HR 10 Days #20 tab 05/29/22 Allergies Allergy/AdvReac Type Severity Reaction Status Date / Time latex Allergy Itching Verified 07/06/22 11:07 hydrocodone [From Vicodin] AdvReac Nausea & Verified 07/06/22 11:07 Vomiting & Diarrhea Review of Systems ROS Statement: Those systems with pertinent positive or pertinent negative responses have been documented in the HPI. ROS Other: All systems not noted in ROS Statement are negative. 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 at [facility]-PT HAD A STROKE, BRAIN BLEED AND SEIZURE FOLLOWING TREATMENT, neuropathy bilateral feet, heart palpitations, enlarged heart, benign lung nodules, gastric ulcer History of Any Multi-Drug Resistant Organisms: None Reported Past Surgical History: Section, Cholecystectomy, Hernia Repair, Orthopedic Surgery Additional Past Surgical History / Comment(s): 12/10/21 BMA, double lumen PICC, cholecystectomy/umbilical hernia repair, open repair umbilical hernia/partial omenectomy, surgery to remove uterine fibroids, L oophorectomy, R partial oophorectomy, surgery for nasal fracture, surgery to remove tailbone cysts, R shoulder surgery. Past Anesthesia/Blood Transfusion Reactions: Previous Problems w/ Anesthesia, Postoperative Nausea & Vomiting (PONV) Additional Past Anesthesia/Blood Transfusion Reaction / Comment(s): "very hard coming out of anesthesia" Past Psychological History: No Psychological Hx Reported Smoking Status: Never smoker Past Alcohol Use History: None Reported Past Drug Use History: None Reported - Past Family History Father Family Medical History: Congestive Heart Failure (CHF) Additional Family Medical History / Comment(s): at age 83, possibly from heart issues- unsure. Mother Family Medical History: CVA/TIA, Deep Vein Thrombosis (DVT) Additional Family Medical History / Comment(s): at age 77 from cva General Exam Limitations: no limitations General appearance: alert, in no apparent distress Head exam: Present: atraumatic, normocephalic, normal inspection Eye exam: Present: normal appearance, PERRL, EOMI. Absent: scleral icterus, conjunctival injection, periorbital swelling ENT exam: Present: normal exam, normal oropharynx, mucous membranes moist Neck exam: Present: normal inspection, full ROM. Absent: tenderness, meningismus, lymphadenopathy Respiratory exam: Present: normal lung sounds bilaterally. Absent: respiratory distress, wheezes, rales, rhonchi, stridor Cardiovascular Exam: Present: regular rate, normal rhythm, normal heart sounds. Absent: systolic murmur, diastolic murmur, rubs, gallop, clicks Neurological exam: Present: alert Skin exam: Present: warm, dry, intact, normal color. Absent: rash Course Vital Signs 07/06/22 07/06/22 07/06/22 11:05 11:21 11:23 Temperature 98.1 F Pulse Rate 94 88 Respiratory 18 16 Rate Blood Pressure 110/73 112/72 O2 Sat by Pulse 100 100 100 Oximetry 07/06/22 07/06/22 12:00 13:00 Temperature Pulse Rate Respiratory Rate Blood Pressure 112/72 122/85 O2 Sat by Pulse 99 Oximetry Medical Decision Making - Medical Decision Making Was pt. sent in by a medical professional or institution ( PA, MEDICAL ASSISTING INSTRUCTOR, urgent care, hospital, or intermediate...) When possible be specific @ -[Oncology Did you speak to anyone other than the patient for history (EMS, parent, family, police, friend...)? What history was obtained from this source @ -Family in the room providing recent history Did you review nursing and triage notes (agree or disagree)? Why? @ -I reviewed and agree with nursing and triage notes Were old charts reviewed (outside hosp., previous admission, EMS record, old EKG, old radiological studies, urgent care reports/EKG's, intermediate records)? Report findings @ -Reviewed recent oncology reports, laboratory studies Differential Diagnosis (chest pain, altered mental status, abdominal pain women, abdominal pain men, vaginal bleeding, weakness, fever, dyspnea, syncope, headache, dizziness, GI bleed, back pain, seizure, CVA, palpatations, mental health, musculoskeletal)? @ -AML, thrombocytopenia, pancytopenia EKG interpreted by me (3pts min.). @ -None X-rays interpreted by me (1pt min.). @ -None done CT interpreted by me (1pt min.). @ -None done U/S interpreted by me (1pt. min.). @ -None done What testing was considered but not performed or refused? (CT, X-rays, U/S, labs)? Why? @ -None What meds were considered but not given or refused? Why? @ -None Did you discuss the management of the patient with other professionals (professionals i.e. , PA, MEDICAL ASSISTING INSTRUCTOR, lab, RT, psych nurse, social work faculty member, group leader semiconductor testing, teacher, safety patrol officer, vocational case manager)? Give summary @ -EMH for observation pending platelet transfusion. Was smoking cessation discussed for >3mins.? @ -No Was critical care preformed (if so, how long)? @ -No Were there social determinants of health that impacted care today? How? (Homelessness, low income, unemployed, alcoholism, drug addiction, transportation, low edu. Level, literacy, decrease access to med. care, fci, rehab)? @ -No Was there de-escalation of care discussed even if they declined (Discuss DNR or withdrawal of care, Hospice)? DNR status @ -No What co-morbidities impacted this encounter? (DM, HTN, Smoking, COPD, CAD, Cancer, CVA, ARF, Chemo, Hep., AIDS, mental health diagnosis, sleep apnea, morbid obesity)? @ -None Was patient admitted / discharged? Hospital course, mention meds given and route, prescriptions, significant lab abnormalities, going to OR and other pertinent info. @ -[Admitted to observation for platelet transfusion. Undiagnosed new problem with uncertain prognosis? @ -No Drug Therapy requiring intensive monitoring for toxicity (Heparin, Nitro, Insulin, Cardizem)? @ -No Were any procedures done? @ -No Diagnosis/symptom? @ -Thrombocytopenia Acute, or Chronic, or Acute on Chronic? @ -Acute on chronic Uncomplicated (without systemic symptoms) or Complicated (systemic symptoms)? @ -Complicated Side effects of treatment? @ -No Exacerbation, Progression, or Severe Exacerbation? @ -No Poses a threat to life or bodily function? How? (Chest pain, USA, LA, pneumonia, PE, COPD, DKA, ARF, appy, cholecystitis, CVA, Diverticulitis, Homicidal, Suicidal, threat to staff... and all critical care pts) @ -Yes patient has increasing bleeding risk - Lab Data Result diagrams: 07/06/22 12:10 07/06/22 12:51 Lab Results 07/06/22 07/06/22 07/06/22 Range/Units 12:10 12:51 12:51 WBC 1.2 L* (3.8-10.6) k/uL RBC 3.03 L (3.80-5.40) m/uL Hgb 9.9 L (11.4-16.0) gm/dL Hct 27.8 L (34.0-46.0) % MCV 91.6 (80.0-100.0) fL MCH 32.5 (25.0-35.0) pg MCHC 35.5 (31.0-37.0) g/dL RDW 16.4 H (11.5-15.5) % Plt Count 7 L* D (150-450) k/uL MPV 11.7 Neutrophils % (Manual) 29 % Band Neuts % (Manual) 1 % Lymphocytes % (Manual) 42 % Monocytes % (Manual) 24 % Metamyelocytes % 3 % Myelocytes % 1 % Neutrophils # (Manual) 0.30 L* (1.3-7.7) k/uL Lymphocytes # (Manual) 0.50 L (1.0-4.8) k/uL Monocytes # (Manual) 0.29 (0-1.0) k/uL Metamyelocytes # (Man) 0.04 H (0) k/uL Myelocytes # (Manual) 0.01 H (0) k/uL Nucleated RBCs 0 (0-0) /100 WBC Manual Slide Review Performed Anisocytosis Slight Sodium 138 (137-145) mmol/L Potassium 4.4 (3.5-5.1) mmol/L Chloride 101 (98-107) mmol/L Carbon Dioxide 29 (22-30) mmol/L Anion Gap 8 mmol/L BUN 17 (7-17) mg/dL Creatinine 0.48 L (0.52-1.04) mg/dL Est GFR (CKD-EPI)AfAm >90 (>60 ml/min/1.73 sqM) Est GFR (CKD-EPI)NonAf >90 (>60 ml/min/1.73 sqM) Glucose 124 H (74-99) mg/dL Calcium 9.0 (8.4-10.2) mg/dL Blood Type O Positive Blood Type Recheck O Pos Bld Type Recheck Status No Antibody Screen NEGATIVE Disposition Clinical Impression: Thrombocytopenia, Acute myeloid leukemia Disposition: ADMITTED IP TO THIS [facility] Referrals: Nonstaff,Physician [Primary Care Provider] - 1-2 days Time of Disposition: 15:44
[2022-07-06 12:34] LABS: Anisocytosis Slight; HCT 27.8 % (34.0-46.0); HGB 9.9 gm/dL (11.4-16.0); MCH 32.5 pg (25.0-35.0); MCHC 35.5 g/dL (31.0-37.0); MCV 91.6 fL (80.0-100.0); Mean Platelet Volume 11.7; RBC 3.03 m/uL (3.80-5.40); RDW 16.4 % (11.5-15.5)
[2022-07-06 12:46] LABS: WBC 1.2 k/uL (3.8-10.6)
[2022-07-06 13:38] LABS: African American GFR (CKD) >90 (>60 ml/min/1.73 sqM); Anion Gap 8 mmol/L; Blood Urea Nitrogen 17 mg/dL (7-17); Carbon Dioxide 29 mmol/L (22-30); Chloride 101 mmol/L (98-107); Glucose 124 mg/dL (74-99); Non-African American GFR(CKD) >90 (>60 ml/min/1.73 sqM); Potassium 4.4 mmol/L (3.5-5.1); Sodium 138 mmol/L (137-145)
[2022-07-06 14:02] LABS: Neutrophils % (M) 29 %
[2022-07-06 14:03] LABS: Band Neutrophils % 1 %; Monocytes # (M) 0.29 k/uL (0-1.0)
[2022-07-06 14:04] LABS: Metamyelocytes # (M) 0.04 k/uL (0); Metamyelocytes % 3 %; Myelocytes # (M) 0.01 k/uL (0); Myelocytes % 1 %; Nucleated Red Blood Cells 0 /100 WBC (0-0); Platelet Count 7 k/uL (150-450); Total Cells Counted 100
[2022-07-06] MEDS ORDERED: NALOXONE 0.4 MG/ML 1 ML VIAL IV PRN (15:44)
--- NOTE | 2022-07-06 20:42 | P.HPIM ---
History of Present Illness This is a pleasant 66 years old female with multiple medical problems as below. She was sent by her oncologist Dr. Parisi to the hospital for acute thrombocytopenia secondary to chemotherapy Patient is a known case of AML and she follow up with oncologist at [facility] in [place] where she got her chemotherapy recently about 10 days ago and she was referred from her primary oncologist to Dr. Parisi oncologist in [place] to monitor her labs including platelet count. She check in her blood count every other day. This time she was referred by Dr. Ma to the hospital for low platelet count. Patient reports history of syncope each time she got chemotherapy however during this admission she denies any dizziness or syncope/presyncope symptoms. She is a known case of pancytopenia secondary to chemotherapy and she was in this facility about one month ago for Klebsiella bacteremia and neutropenic fever Patient denies any other symptoms, no chest pain or dyspnea. No change in urine or bowel habits, no neurological symptoms, no fever She denies smoking alcohol or illicit drug Patient is afebrile and vitals are stable WBC count 1.2k , hemoglobin 9.9 and platelet count 7 (during last admission her platelet count was on an 8-10 and improved to 21k upon discharge BMP is unremarkable Review of Systems Review of systems CONSTITUTIONAL: No fever, no malaise, no fatigue. HEENT: No recent visual problems or hearing problems. Denied any sore throat. CARDIOVASCULAR: No orthopnea, PND, no palpitations, no syncope. PULMONARY: No shortness of breath, no cough, no hemoptysis. GASTROINTESTINAL: No diarrhea, no nausea, no vomiting, no abdominal pain. Normoactive bowel sounds. NEUROLOGICAL: No headaches, no weakness, no numbness. HEMATOLOGICAL: Denies any bleeding or petechiae. GENITOURINARY: Denies any burning micturition, frequency, or urgency. MUSCULOSKELETAL/RHEUMATOLOGICAL: Denies any joint pain, swelling, or any muscle pain. ENDOCRINE: Denies any polyuria or polydipsia. 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 at [facility]-PT HAD A STROKE, BRAIN BLEED AND SEIZURE FOLLOWING TREATMENT, neuropathy bilateral feet, heart palpitations, enlarged heart, benign lung nodules, gastric ulcer History of Any Multi-Drug Resistant Organisms: None Reported Past Surgical History: Section, Cholecystectomy, Hernia Repair, Orthopedic Surgery Additional Past Surgical History / Comment(s): 12/10/21 BMA, double lumen PICC, cholecystectomy/umbilical hernia repair, open repair umbilical hernia/partial omenectomy, surgery to remove uterine fibroids, L oophorectomy, R partial oophorectomy, surgery for nasal fracture, surgery to remove tailbone cysts, R shoulder surgery. Past Anesthesia/Blood Transfusion Reactions: Previous Problems w/ Anesthesia, Postoperative Nausea & Vomiting (PONV) Additional Past Anesthesia/Blood Transfusion Reaction / Comment(s): "very hard coming out of anesthesia" Smoking Status: Never smoker - Past Family History Father Family Medical History: Congestive Heart Failure (CHF) Additional Family Medical History / Comment(s): at age 83, possibly from heart issues- unsure. Mother Family Medical History: CVA/TIA, Deep Vein Thrombosis (DVT) Additional Family Medical History / Comment(s): at age 77 from cva Medications and Allergies Home Medications Medication Instructions Recorded Confirmed Type Lacosamide 200 mg PO BID 03/02/22 07/06/22 History Magnesium Oxide [Mag-Ox] 400 mg PO HS 03/02/22 07/06/22 History Pantoprazole [Protonix] 40 mg PO HS 03/02/22 07/06/22 History Phenytoin Sodium Extended 100 mg PO TID 03/02/22 07/06/22 History [Dilantin] Verapamil HCl [Verelan Pm] 100 mg PO HS 03/02/22 07/06/22 History amantadine HCL [Amantadine] 100 mg PO BID 03/02/22 07/06/22 History levETIRAcetam [Keppra] 1,500 mg PO BID 05/22/22 07/06/22 History Acyclovir [Zovirax] 400 mg PO BID 07/02/22 07/06/22 History Docusate [Colace] 100 mg PO BID 07/06/22 07/06/22 History Allergies Allergy/AdvReac Type Severity Reaction Status Date / Time latex Allergy Itching Verified 07/06/22 15:43 hydrocodone [From Vicodin] AdvReac Nausea & Verified 07/06/22 15:43 Vomiting & Diarrhea Physical Exam Vitals: Vital Signs Temp Pulse Pulse Resp BP BP Pulse Ox 07/06/22 18:03 98.1 F 88 18 113/73 100 07/06/22 17:33 98.1 F 07/06/22 16:00 82 109/69 07/06/22 13:00 122/85 99 07/06/22 12:00 112/72 07/06/22 11:23 100 07/06/22 11:21 88 16 112/72 100 07/06/22 11:05 98.1 F 94 18 110/73 100 Intake and Output 07/06/22 07/06/22 07/06/22 06:59 14:59 22:59 Other: Weight 108.862 kg 108.862 kg GENERAL: The patient is alert and oriented x3, not in any acute distress. Well developed, well nourished. HEENT: Pupils are round and equally reacting to light. EOMI. No scleral icterus. No conjunctival pallor. Normocephalic, atraumatic. No pharyngeal erythema. No thyromegaly. CARDIOVASCULAR: S1 and S2 present. No murmurs, rubs, or gallops. PULMONARY: Chest is clear to auscultation, no wheezing . no crackles. ABDOMEN: Soft, nontender, nondistended, normoactive bowel sounds. No palpable organomegaly. MUSCULOSKELETAL: No joint swelling or deformity. EXTREMITIES: No cyanosis, clubbing, or pedal edema. NEUROLOGICAL: Gross neurological examination did not reveal any focal deficits. SKIN: No rashes. no petechiae. Results CBC & Chem 7: 07/06/22 12:10 07/06/22 12:51 Labs: Abnormal Lab Results - Last 24 Hours (Table) 07/06/22 07/06/22 Range/Units 12:10 12:51 WBC 1.2 L* (3.8-10.6) k/uL RBC 3.03 L (3.80-5.40) m/uL Hgb 9.9 L (11.4-16.0) gm/dL Hct 27.8 L (34.0-46.0) % RDW 16.4 H (11.5-15.5) % Plt Count 7 L* D (150-450) k/uL Neutrophils # (Manual) 0.30 L* (1.3-7.7) k/uL Lymphocytes # (Manual) 0.50 L (1.0-4.8) k/uL Metamyelocytes # (Man) 0.04 H (0) k/uL Myelocytes # (Manual) 0.01 H (0) k/uL Creatinine 0.48 L (0.52-1.04) mg/dL Glucose 124 H (74-99) mg/dL Thrombosis Risk Factor Assmnt - Choose All That Apply Any of the Below Risk Factors Present?: Yes Each Factor Represents 1 point: Obesity (BMI >25), Swollen legs (current) Other Risk Factors: Yes Each Risk Factor Represents 2 Points: Age 61-74 years Thrombosis Risk Factor Assessment Total Risk Factor Score: 4 Thrombosis Risk Factor Assessment Level: Moderate Risk Assessment and Plan Assessment: Pancytopenia secondary to chemotherapy and acute myeloid leukemia AML Recent history of Klebsiella bacteremia, Neutropenic fever. Not an active issue History of nasal fracture, healing History of subarachnoid and subdural hematoma History of seizure Plan: Monitor platelet count Oncology team consult Fall precautions Labs and medication were reviewed.. Continue same treatment. Continue with symptomatic treatment. Resume home medication. Monitor labs and vitals. DVT and GI prophylaxis. Further recommendations as per clinical course of the patient DVT prophylaxis: no Subcutaneous heparin for severe thrombocytopenia GI Prophylaxis: Pepcid Prognosis is guarded
[2022-07-06] MEDS: LACOSAMIDE 150 MG TABLET PO SCH (21:24)
[2022-07-06] MEDS: DOCUSATE 100 MG CAP PO SCH (21:24)
[2022-07-06] MEDS: LACOSAMIDE 50 MG TABLET PO SCH (21:24)
[2022-07-06] MEDS: VERAPAMIL SR 120 MG TABLET.ER PO SCH (21:24)
[2022-07-06] MEDS: PANTOPRAZOLE 40 MG TABLET PO SCH (21:24)
[2022-07-06] MEDS: MAGNESIUM OXIDE 400 MG TAB PO SCH (21:24)
[2022-07-06] MEDS: ACYCLOVIR 200 MG CAP PO SCH (21:24)
[2022-07-06] MEDS: PHENYTOIN SODIUM EXTENDED 100 MG CAP PO SCH (21:25)
[2022-07-07] MEDS: LACOSAMIDE 150 MG TABLET PO SCH ×2 (08:48→20:28)
[2022-07-07] MEDS: DOCUSATE 100 MG CAP PO SCH ×2 (08:48→20:28)
[2022-07-07] MEDS: LACOSAMIDE 50 MG TABLET PO SCH ×2 (08:48→20:28)
[2022-07-07] MEDS: ACYCLOVIR 200 MG CAP PO SCH ×2 (08:48→20:28)
[2022-07-07] MEDS: PHENYTOIN SODIUM EXTENDED 100 MG CAP PO SCH ×3 (08:49→20:33)
[2022-07-07] MEDS ORDERED: FAMOTIDINE 20 MG/2 ML VIAL IV SCH (09:00)
[2022-07-07 14:58] LABS: African American GFR (CKD) 112.5 (60.0-200.0); Anion Gap 10.9 mmol/L (10.00-18.00); BUN/Creat Ratio 29.09 Ratio (12.00-20.00); Basophils # (A) 0.02 X 10*3/uL (0.00-0.10); Blood Urea Nitrogen 16.7 mg/dL (9.0-27.0); Calcium 9.2 mg/dL (8.7-10.3); Carbon Dioxide 26.4 mmol/L (20.0-27.5); Eosinophils # (A) 0 X 10*3/uL (0.04-0.35); Eosinophils % (A) 0 %; Immature Grans, Automated 1.5 %; Lymphocytes # (A) 0.38 X 10*3/uL (0.90-5.00); Lymphocytes % (A) 18.7 %; Monocytes # (A) 0.79 X 10*3/uL (0.20-1.00); Monocytes % (A) 38.9 %; NRBC Per 100 WBC 0 /100 WBCS (0.0-0.0); Neutrophils # (A) 0.81 X 10*3/uL (1.80-7.70); Neutrophils % (A) 39.9 %; Non-African American GFR(CKD) 97.1 (60.0-200.0); Potassium 4.4 mmol/L (3.5-5.5)
[2022-07-07 14:59] LABS: HCT 24.8 % (37.2-46.3); HGB 8.5 g/dL (12.0-15.0); Immature Platelet Fraction 1.3 % (1.1-6.1); MCH 32.2 pg (27.0-32.0); MCHC 34.3 g/dL (32.0-37.0); MCV 93.9 fL (80.0-97.0); Mean Platelet Volume 11.3 fL (9.5-12.2); Platelet Count 14 X 10*3/uL (140-440); RBC 2.64 X 10*6/uL (4.10-5.20); RBC Morphology NORMAL; RDW 16.4 % (11.5-14.5); WBC 2.03 X 10*3/uL (4.50-10.00)
--- NOTE | 2022-07-07 16:33 | P.CONS ---
History of Present Illness - Reason for Consult Consult date: 07/07/22 hx AML Requesting physician: Barrett E Sheet - Chief Complaint thrombocytopenia - History of Present Illness Ms. Smith is a 66-year-old woman with a past medical history for core binding factor AML t(8;21). She follows with Dr. Parisi and Dr Bradley at [facility]. Patient is status post 7+3 induction chemotherapy in December 2021 complicated by subdural and subarachnoid hemorrhage who achieved complete response on posttreatment bone marrow biopsy in February 2022. She completed second cycle of consolidation from 06/22-06/26/22, receiving Neulasta posttreatment. she has been following up every other day since last cycle for CBC rechecks. Patient was in the ER on 07/02/22 and received 1 unit of platelets and was discharged home. patient was seen in our clinic yesterday and platelets were 2500, at which time she was referred to the ER for further evaluation and platelets. Upon admission platelets were 4000, 1 unit of platelets administered. Platelets today improved, 14,000. Goal of platelets for her is greater than 20,000 due to history of intracranial hemorrhage. Will order additional unit of platelets today. WBC upon admission was 1.2, ANC 300, hemoglobin 9.9. Today WBC improved, 2.0, ANC 810. Hemoglobin 8.5. Patient was reporting having bleeding from gingiva 4 days ago but has since subsided. No other reported episodes of bleeding. Denies headache and visual disturbances. Denies unilateral weakness, slurred speech, facial droop. She was reporting some dizziness this morning that subsided after eating. No other reported complaints at this time. Review of Systems 10 point ROS is negative except as stated in the HPI 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 [facility]-PT HAD A STROKE, BRAIN BLEED AND SEIZURE FOLLOWING TREAT MENT, neuropathy bilateral feet, heart palpitations, enlarged heart, benign lung nodules, gastric ulcer History of Any Multi-Drug Resistant Organisms: None Reported Past Surgical History: Section, Cholecystectomy, Hernia Repair, Orthopedic Surgery Additional Past Surgical History / Comment(s): 12/10/21 BMA, double lumen PICC, cholecystectomy/umbilical hernia repair, open repair umbilical hernia/partial omenectomy, surgery to remove uterine fibroids, L oophorectomy, R partial oophorectomy, surgery for nasal fracture, surgery to remove tailbone cysts, R shoulder surgery. Past Anesthesia/Blood Transfusion Reactions: Previous Problems w/ Anesthesia, Postoperative Nausea & Vomiting (PONV) Additional Past Anesthesia/Blood Transfusion Reaction / Comm: "very hard coming out of anesthesia" Smoking Status: Never smoker - Past Family History Father Family Medical History: Congestive Heart Failure (CHF) Additional Family Medical History / Comment(s): at age 83, possibly from heart issues- unsure. Mother Family Medical History: CVA/TIA, Deep Vein Thrombosis (DVT) Additional Family Medical History / Comment(s): at age 77 from cva Medications and Allergies Home Medications Medication Instructions Recorded Confirmed Type Lacosamide 200 mg PO BID 03/02/22 07/06/22 History Magnesium Oxide [Mag-Ox] 400 mg PO HS 03/02/22 07/06/22 History Pantoprazole [Protonix] 40 mg PO HS 03/02/22 07/06/22 History Phenytoin Sodium Extended 100 mg PO TID 03/02/22 07/06/22 History [Dilantin] Verapamil HCl [Verelan Pm] 100 mg PO HS 03/02/22 07/06/22 History amantadine HCL [Amantadine] 100 mg PO BID 03/02/22 07/06/22 History levETIRAcetam [Keppra] 1,500 mg PO BID 05/22/22 07/06/22 History Acyclovir [Zovirax] 400 mg PO BID 07/02/22 07/06/22 History Docusate [Colace] 100 mg PO BID 07/06/22 07/06/22 History Allergies Allergy/AdvReac Type Severity Reaction Status Date / Time latex Allergy Itching Verified 07/06/22 15:43 hydrocodone [From Vicodin] AdvReac Nausea & Verified 07/06/22 15:43 Vomiting & Diarrhea Physical Exam Vitals: Vital Signs Temp Pulse Pulse Resp BP BP Pulse Ox 07/07/22 12:50 97.8 F 84 18 108/69 100 07/07/22 07:50 97.8 F 96 18 108/74 100 07/07/22 01:37 97.4 F L 84 16 105/61 97 07/07/22 01:09 98.7 F 81 16 101/63 97 07/07/22 00:52 100/63 07/07/22 00:47 85 100/63 07/06/22 23:59 83 99/61 98 07/06/22 23:39 98.2 F 85 16 85/53 98 07/06/22 23:35 97.9 F 112 H 16 143/85 98 07/06/22 20:10 18 07/06/22 19:09 98.8 F 99 18 112/73 96 07/06/22 18:03 98.1 F 88 18 113/73 100 07/06/22 17:33 98.1 F 07/06/22 16:00 82 109/69 Intake and Output 07/07/22 07/07/22 07/07/22 06:59 14:59 22:59 Intake Total 328 358 Balance 328 358 Intake: Oral 358 Blood Product 328 Platelet Pheresis Pas 328 Psoralen Unit [id number] Other: Voiding Method Toilet # Voids 1 2 - Constitutional General appearance: average body habitus, no acute distress - EENT Eyes: anicteric sclerae, EOMI ENT: hearing grossly normal - Respiratory Respiratory: bilateral: CTA - Cardiovascular Rhythm: regular Heart sounds: normal: S1, S2 Abnormal Heart Sounds: no systolic murmur, no diastolic murmur, no rub, no S3 Gallop, no S4 Gallop, no click, no other - Gastrointestinal General gastrointestinal: soft, no tenderness - Integumentary Integumentary: no cyanotic, no rash - Neurologic grossly intact - Musculoskeletal Musculoskeletal: strength equal bilaterally - Psychiatric Psychiatric: A&O x's 3, appropriate affect, intact judgment & insight Results CBC & Chem 7: 07/07/22 06:00 07/07/22 06:00 Labs: Abnormal Lab Results - Last 24 Hours (Table) 07/07/22 07/07/22 Range/Units 06:00 06:00 WBC 2.03 L (4.50-10.00) X 10*3/uL RBC 2.64 L (4.10-5.20) X 10*6/uL Hgb 8.5 L (12.0-15.0) g/dL Hct 24.8 L (37.2-46.3) % MCH 32.2 H (27.0-32.0) pg RDW 16.4 H (11.5-14.5) % Plt Count 14 L* (140-440) X 10*3/uL Plt Count Comment A Neutrophils # 0.81 L (1.80-7.70) X 10*3/uL Lymphocytes # 0.38 L (0.90-5.00) X 10*3/uL Eosinophils # 0 L (0.04-0.35) X 10*3/uL BUN/Creatinine Ratio 29.09 H (12.00-20.00) Ratio Glucose 141 H (70-110) mg/dL Assessment and Plan (1) Thrombocytopenia Current Visit: Yes Status: Acute Priority: High Code(s): D69.6 - THROMBOCYTOPENIA, UNSPECIFIED SNOMED Code(s): 734986419 (2) Acute myeloid leukemia Current Visit: Yes Status: Chronic Priority: High Code(s): C92.00 - ACUTE MYELOBLASTIC LEUKEMIA, NOT HAVING ACHIEVED REMISSION SNOMED Code(s): 80961585 Plan: AML: -History for core binding factor AML t(8;21). She follows with Dr. Parisi and Dr Bradley at [facility]. Patient is status post 7+3 induction chemotherapy in December 2021 complicated by subdural and subarachnoid hemorrhage who achieved complete response on posttreatment bone marrow biopsy in February 2022. She completed second cycle of consolidation from 06/22-06/26/22, receiving Neulasta posttreatment. Chemo-induced pancytopenia: -She has been following up every other day since last cycle of consolidation on 06/26/22 for CBC rechecks. Patient was in the ER on 07/02/22 and received 1 unit of platelets and was discharged home. Patient was seen in our clinic yesterday and platelets were 2500. Upon admission platelets were 4000, 1 unit of platelets administered. -Platelets today improved, 14,000. Goal of platelets for patient is greater than 20,000 due to history of intracranial hemorrhage. Will order additional unit of platelets today. -Hemoglobin stable, 8.5. WBC improving, today 2.0, ANC 810. -Please transfuse for platelets less than 20,000 or if symptomatic. Please use irradiated blood products. -Will continue to monitor. CBC in the a.m. attests: I have performed H&P and developed impression and plan of care for patient, discussed with dictator. I agree with dictated note, documented as a scribe
[2022-07-07] MEDS: PANTOPRAZOLE 40 MG TABLET PO SCH (20:28)
[2022-07-07] MEDS: VERAPAMIL SR 120 MG TABLET.ER PO SCH (20:28)
[2022-07-07] MEDS: MAGNESIUM OXIDE 400 MG TAB PO SCH (20:28)
--- NOTE | 2022-07-07 21:14 | P.PN ---
Subjective This is a pleasant 66 years old female with multiple medical problems as below. She was sent by her oncologist Dr. Parisi to the hospital for acute thr ombocytopenia secondary to chemotherapy Patient is a known case of AML and she follow up with oncologist at [facility] in [place] where she got her chemotherapy recently about 10 days ago and she was referred from her primary oncologist to Dr. Parisi oncologist in [place] to monitor her labs including platelet count. She check in her blood count every other day. This time she was referred by Dr. Ma to the hospital for low platelet count. Patient reports history of syncope each time she got chemotherapy however during this admission she denies any dizziness or syncope/presyncope symptoms. She is a known case of pancytopenia secondary to chemotherapy and she was in this facility about one month ago for Klebsiella bacteremia and neutropenic fever Patient denies any other symptoms, no chest pain or dyspnea. No change in urine or bowel habits, no neurological symptoms, no fever She denies smoking alcohol or illicit drug Patient is afebrile and vitals are stable WBC count 1.2k , hemoglobin 9.9 and platelet count 7 (during last admission her platelet count was on an 8-10 and improved to 21k upon discharge BMP is unremarkable 07/07/2022 Patient remains with no symptoms Vitals stable WBCs improved to 2.3, platelet count improved to 14 K Home [employer] team on the case Objective - Vital Signs Vital signs: Vital Signs Temp 97.8 F 07/07/22 07:50 Pulse 96 07/07/22 07:50 Resp 18 07/07/22 07:50 BP 108/74 07/07/22 07:50 Pulse Ox 100 07/07/22 07:50 FiO2 Intake & Output 07/06/22 07/07/22 07/07/22 18:59 06:59 18:59 Intake Total 328 240 Balance 328 240 Weight 108.862 kg Intake: Oral 240 Blood Product 328 Platelet Pheresis Pas 328 Psoralen Unit [id number] Other: Voiding Method Toilet Toilet # Voids 1 - Exam GENERAL: The patient is alert and oriented x3, not in any acute distress. Well developed, well nourished. HEENT: Pupils are round and equally reacting to light. EOMI. No scleral icterus. No conjunctival pallor. Normocephalic, atraumatic. No pharyngeal erythema. No thyromegaly. CARDIOVASCULAR: S1 and S2 present. No murmurs, rubs, or gallops. PULMONARY: Chest is clear to auscultation, no wheezing . no crackles. ABDOMEN: Soft, nontender, nondistended, normoactive bowel sounds. No palpable organomegaly. MUSCULOSKELETAL: No joint swelling or deformity. EXTREMITIES: No cyanosis, clubbing, or pedal edema. NEUROLOGICAL: Gross neurological examination did not reveal any focal deficits. SKIN: No rashes. no petechiae. - Labs CBC & Chem 7: 07/07/22 06:00 07/07/22 06:00 Labs: Abnormal Lab Results - Last 24 Hours (Table) 07/06/22 07/06/22 Range/Units 12:10 12:51 WBC 1.2 L* (3.8-10.6) k/uL RBC 3.03 L (3.80-5.40) m/uL Hgb 9.9 L (11.4-16.0) gm/dL Hct 27.8 L (34.0-46.0) % RDW 16.4 H (11.5-15.5) % Plt Count 7 L* D (150-450) k/uL Neutrophils # (Manual) 0.30 L* (1.3-7.7) k/uL Lymphocytes # (Manual) 0.50 L (1.0-4.8) k/uL Metamyelocytes # (Man) 0.04 H (0) k/uL Myelocytes # (Manual) 0.01 H (0) k/uL Creatinine 0.48 L (0.52-1.04) mg/dL Glucose 124 H (74-99) mg/dL Assessment and Plan Assessment: Pancytopenia secondary to chemotherapy and acute myeloid leukemia AML Recent history of Klebsiella bacteremia, Neutropenic fever. Not an active issue History of nasal fracture, healing History of subarachnoid and subdural hematoma History of seizure Plan: Monitor platelet count Oncology team consult Fall precautions Labs and medication were reviewed.. Continue same treatment. Continue with symptomatic treatment. Resume home medication. Monitor labs and vitals. DVT and GI prophylaxis. Further recommendations as per clinical course of the patient DVT prophylaxis: no Subcutaneous heparin for severe thrombocytopenia GI Prophylaxis: Pepcid Prognosis is guarded
[2022-07-08] MEDS: LACOSAMIDE 150 MG TABLET PO SCH ×2 (08:31→20:53)
[2022-07-08] MEDS: ACYCLOVIR 200 MG CAP PO SCH ×2 (08:31→20:53)
[2022-07-08] MEDS: DOCUSATE 100 MG CAP PO SCH ×2 (08:31→20:53)
[2022-07-08] MEDS: LACOSAMIDE 50 MG TABLET PO SCH ×2 (08:31→20:53)
[2022-07-08] MEDS: PHENYTOIN SODIUM EXTENDED 100 MG CAP PO SCH ×3 (08:32→20:53)
[2022-07-08 11:30] LABS: Basophils # (A) 0 X 10*3/uL (0.00-0.10); Basophils % (A) 0 %; Eosinophils # (A) 0 X 10*3/uL (0.04-0.35); Eosinophils % (A) 0 %; HCT 24.1 % (37.2-46.3); HGB 8.6 g/dL (12.0-15.0); Lymphocytes % (A) 17.3 %; MCH 33.3 pg (27.0-32.0); MCHC 35.7 g/dL (32.0-37.0); MCV 93.4 fL (80.0-97.0); Mean Platelet Volume 12.3 fL (9.5-12.2); Monocytes % (A) 41.5 %; NRBC Per 100 WBC 0 /100 WBCS (0.0-0.0); Neutrophils # (A) 1.16 X 10*3/uL (1.80-7.70); Neutrophils % (A) 40.2 %; Platelet Count 12 X 10*3/uL (140-440); RBC 2.58 X 10*6/uL (4.10-5.20); RDW 16.2 % (11.5-14.5); WBC 2.89 X 10*3/uL (4.50-10.00)
[2022-07-08 11:31] LABS: Immature Platelet Fraction 2.5 % (1.1-6.1)
--- NOTE | 2022-07-08 14:36 | P.PN ---
Progress Note - Text Progress Note Date: 07/08/22 Attempted to see patient today, however patient was showering. Spoke with primary RN, platelets 12,000 today, S/P 2 units of platelets. Goal of platelets is 20,000 due to hx of intracranial hemorrhage. Additional unit of irradiated platelets ordered today. No reported episodes of bleeding per RN.
--- NOTE | 2022-07-08 19:29 | P.PN ---
Subjective This is a pleasant 66 years old female with multiple medical problems as below. She was sent by her oncologist Dr. Parisi to the hospital for acute thr ombocytopenia secondary to chemotherapy Patient is a known case of AML and she follow up with oncologist at [facility] in [place] where she got her chemotherapy recently about 10 days ago and she was referred from her primary oncologist to Dr. Parisi oncologist in [place] to monitor her labs including platelet count. She check in her blood count every other day. This time she was referred by Dr. Ma to the hospital for low platelet count. Patient reports history of syncope each time she got chemotherapy however during this admission she denies any dizziness or syncope/presyncope symptoms. She is a known case of pancytopenia secondary to chemotherapy and she was in this facility about one month ago for Klebsiella bacteremia and neutropenic fever Patient denies any other symptoms, no chest pain or dyspnea. No change in urine or bowel habits, no neurological symptoms, no fever She denies smoking alcohol or illicit drug Patient is afebrile and vitals are stable WBC count 1.2k , hemoglobin 9.9 and platelet count 7 (during last admission her platelet count was on an 8-10 and improved to 21k upon discharge BMP is unremarkable 07/07/2022 Patient remains with no symptoms Vitals stable WBCs improved to 2.3, platelet count improved to 14 K Music Department Chair team on the case 07/08/2022 Patient remains asymptomatic Platelet count went down to 12,000, she got 1 unit of platelet transfusion yesterday Patient will get another unit of platelet today Monitor platelet count tomorrow Objective - Vital Signs Vital signs: Vital Signs Temp 98.0 F 07/08/22 13:34 Pulse 114 H 07/08/22 13:34 Resp 16 07/08/22 13:34 BP 100/67 07/08/22 13:34 Pulse Ox 99 07/08/22 13:34 FiO2 Intake & Output 07/07/22 07/08/22 07/08/22 18:59 06:59 18:59 Intake Total 358 1268 Output Total 1 Balance 358 1268 -1 Intake: Oral 358 540 Blood Product 0 728 Platelet Pheresis Pas 0 364 Psoralen Unit [id number] Output: Urine 1 Other: Voiding Method Toilet Toilet Toilet # Voids 2 2 # Bowel Movements 1 - Exam GENERAL: The patient is alert and oriented x3, not in any acute distress. Well developed, well nourished. HEENT: Pupils are round and equally reacting to light. EOMI. No scleral icterus. No conjunctival pallor. Normocephalic, atraumatic. No pharyngeal erythema. No thyromegaly. CARDIOVASCULAR: S1 and S2 present. No murmurs, rubs, or gallops. PULMONARY: Chest is clear to auscultation, no wheezing . no crackles. ABDOMEN: Soft, nontender, nondistended, normoactive bowel sounds. No palpable organomegaly. MUSCULOSKELETAL: No joint swelling or deformity. EXTREMITIES: No cyanosis, clubbing, or pedal edema. NEUROLOGICAL: Gross neurological examination did not reveal any focal deficits. SKIN: No rashes. no petechiae. - Labs CBC & Chem 7: 07/08/22 06:57 07/07/22 06:00 Labs: Abnormal Lab Results - Last 24 Hours (Table) 07/07/22 07/07/22 07/08/22 Range/Units 06:00 06:00 06:57 WBC 2.03 L 2.89 L (4.50-10.00) X 10*3/uL RBC 2.64 L 2.58 L (4.10-5.20) X 10*6/uL Hgb 8.5 L 8.6 L (12.0-15.0) g/dL Hct 24.8 L 24.1 L (37.2-46.3) % MCH 32.2 H 33.3 H (27.0-32.0) pg RDW 16.4 H 16.2 H (11.5-14.5) % Plt Count 14 L* 12 L* (140-440) X 10*3/uL Plt Count Comment A MPV 12.3 H (9.5-12.2) fL Neutrophils # 0.81 L 1.16 L (1.80-7.70) X 10*3/uL Lymphocytes # 0.38 L 0.50 L (0.90-5.00) X 10*3/uL Monocytes # 1.20 H (0.20-1.00) X 10*3/uL Eosinophils # 0 L 0 L (0.04-0.35) X 10*3/uL BUN/Creatinine Ratio 29.09 H (12.00-20.00) Ratio Glucose 141 H (70-110) mg/dL Assessment and Plan Assessment: Pancytopenia secondary to chemotherapy and acute myeloid leukemia AML Recent history of Klebsiella bacteremia, Neutropenic fever. Not an active issue History of nasal fracture, healing History of subarachnoid and subdural hematoma History of seizure Plan: Monitor platelet count Oncology team consult Fall precautions Labs and medication were reviewed.. Continue same treatment. Continue with symptomatic treatment. Resume home medication. Monitor labs and vitals. DVT and GI prophylaxis. Further recommendations as per clinical course of the patient DVT prophylaxis: no Subcutaneous heparin for severe thrombocytopenia GI Prophylaxis: Pepcid Prognosis is guarded
[2022-07-08] MEDS: VERAPAMIL SR 120 MG TABLET.ER PO SCH (20:52)
[2022-07-08] MEDS: MAGNESIUM OXIDE 400 MG TAB PO SCH (20:53)
[2022-07-08] MEDS: PANTOPRAZOLE 40 MG TABLET PO SCH (20:53)
[2022-07-09 06:34] LABS: HCT 24.4 % (34.0-46.0); HGB 8.8 gm/dL (11.4-16.0); MCH 33.2 pg (25.0-35.0); MCV 92.4 fL (80.0-100.0); Mean Platelet Volume 8.7; RBC 2.64 m/uL (3.80-5.40); WBC 3.8 k/uL (3.8-10.6)
[2022-07-09 06:43] LABS: Platelet Count 19 k/uL (150-450)
[2022-07-09 08:14] LABS: Lymphocytes # (M) 0.68 k/uL (1.0-4.8); Monocytes # (M) 1.33 k/uL (0-1.0); Neutrophils # (M) 1.79 k/uL (1.3-7.7); Neutrophils % (M) 47 %; Nucleated Red Blood Cells 0 /100 WBC (0-0); Total Cells Counted 200
[2022-07-09 08:15] LABS: RBC Morphology Normal
[2022-07-09] MEDS: LACOSAMIDE 150 MG TABLET PO SCH ×2 (08:33→21:52)
[2022-07-09] MEDS: LACOSAMIDE 50 MG TABLET PO SCH ×2 (08:33→21:52)
[2022-07-09] MEDS: DOCUSATE 100 MG CAP PO SCH ×2 (08:33→21:51)
[2022-07-09] MEDS: ACYCLOVIR 200 MG CAP PO SCH ×2 (08:33→21:51)
[2022-07-09] MEDS: PHENYTOIN SODIUM EXTENDED 100 MG CAP PO SCH ×3 (08:34→21:52)
--- NOTE | 2022-07-09 16:48 | P.PN ---
Subjective Progress Note Date: 07/09/22 Principal diagnosis: hx AML, thrombocytopenia At today's visit patient is resting comfortably bedside chair. She reports feeling well. Denies pain. Denies shortness of breath. Denies any reported episodes of bleeding. Platelets 19,000 today. One unit of irradiated platelets ordered. Objective - Vital Signs Vital signs: Vital Signs Temp 98.9 F 07/09/22 12:02 Pulse 99 07/09/22 12:02 Resp 18 07/09/22 12:02 BP 107/73 07/09/22 12:02 Pulse Ox 100 07/09/22 12:02 FiO2 Intake & Output 07/08/22 07/09/22 07/09/22 18:59 06:59 18:59 Intake Total 254 Output Total 1 Balance 253 Intake: Blood Product 254 Platelet Pheresis Pas 254 Psoralen Unit [id number] Output: Urine 1 Other: Voiding Method Toilet Toilet # Voids 3 3 # Bowel Movements 1 - Constitutional General appearance: Present: average body habitus, no acute distress - EENT Eyes: Present: anicteric sclerae, EOMI ENT: Present: hearing grossly normal - Respiratory Details: breathing is even unlabored - Cardiovascular Details: skin warm and dry - Integumentary Integumentary: Absent: cyanotic, rash - Neurologic Neurologic: Present: CNII-XII intact - Musculoskeletal Musculoskeletal: Present: strength equal bilaterally - Psychiatric Psychiatric: Present: A&O x's 3, appropriate affect, intact judgment & insight - Labs CBC & Chem 7: 07/09/22 05:45 07/07/22 06:00 Labs: Abnormal Lab Results - Last 24 Hours (Table) 07/09/22 Range/Units 05:45 RBC 2.64 L (3.80-5.40) m/uL Hgb 8.8 L (11.4-16.0) gm/dL Hct 24.4 L (34.0-46.0) % RDW 16.0 H (11.5-15.5) % Plt Count 19 L* D (150-450) k/uL Lymphocytes # (Manual) 0.68 L (1.0-4.8) k/uL Monocytes # (Manual) 1.33 H (0-1.0) k/uL Assessment and Plan (1) Thrombocytopenia Current Visit: Yes Status: Acute Priority: High Code(s): D69.6 - THROMBOCYTOPENIA, UNSPECIFIED SNOMED Code(s): 100097143 (2) Acute myeloid leukemia Current Visit: Yes Status: Chronic Priority: High Code(s): C92.00 - ACUTE MYELOBLASTIC LEUKEMIA, NOT HAVING ACHIEVED REMISSION SNOMED Code(s): 69552521 Plan: AML: -History for core binding factor AML t(8;21). She follows with Dr. Parisi and Dr Bradley at [facility]. Patient is status post 7+3 induction chemotherapy in December 2021 complicated by subdural and subarachnoid hemorrhage who achieved complete response on posttreatment bone marrow biopsy in February 2022. She completed second cycle of consolidation from 06/22-06/26/22, receiving Neulasta posttreatment. Chemo-induced pancytopenia: -She has been following up every other day since last cycle of consolidation on 06/26/22 for CBC rechecks. Patient was in the ER on 07/02/22 and received 1 unit of platelets and was discharged home. Patient was seen in our clinic yesterday and platelets were 2500. Upon admission platelets were 4000, 1 unit of platelets administered. -S/p 3 units of platelets. Platelets 19,000 today. Goal of platelets for patient is greater than 20,000 due to history of intracranial hemorrhage. Will order additional unit of platelets today. No reported episodes of bleeding -Hemoglobin stable, 8.8. WBC improving, 3.8, ANC 1700. -Please transfuse for platelets less than 20,000 or if symptomatic. Please use irradiated blood products. -Will continue to monitor. *CBC in the a.m. If platelets are greater than 20,000 with no episodes of bleeding patient is cleared for discharge from hem/onc standpoint. Clinic apt for CBC recheck scheduled for Tuesday morning
--- NOTE | 2022-07-09 21:28 | P.PN ---
Subjective This is a pleasant 66 years old female with multiple medical problems as below. She was sent by her oncologist Dr. Parisi to the hospital for acute thr ombocytopenia secondary to chemotherapy Patient is a known case of AML and she follow up with oncologist at [facility] in [place] where she got her chemotherapy recently about 10 days ago and she was referred from her primary oncologist to Dr. Parisi oncologist in [place] to monitor her labs including platelet count. She check in her blood count every other day. This time she was referred by Dr. Ma to the hospital for low platelet count. Patient reports history of syncope each time she got chemotherapy however during this admission she denies any dizziness or syncope/presyncope symptoms. She is a known case of pancytopenia secondary to chemotherapy and she was in this facility about one month ago for Klebsiella bacteremia and neutropenic fever Patient denies any other symptoms, no chest pain or dyspnea. No change in urine or bowel habits, no neurological symptoms, no fever She denies smoking alcohol or illicit drug Patient is afebrile and vitals are stable WBC count 1.2k , hemoglobin 9.9 and platelet count 7 (during last admission her platelet count was on an 8-10 and improved to 21k upon discharge BMP is unremarkable 07/07/2022 Patient remains with no symptoms Vitals stable WBCs improved to 2.3, platelet count improved to 14 K Soaker Helper team on the case 07/08/2022 Patient remains asymptomatic Platelet count went down to 12,000, she got 1 unit of platelet transfusion yesterday Patient will get another unit of platelet today Monitor platelet count tomorrow 07/09/2022 Patient was eager to go home soon as she remains asymptomatic Platelet count improved up to 19,000. WBC normal and hemoglobin 8.8. Soaker Helper team recommended to keep monitoring platelet count tomorrow and she will be considered for discharge platelet count continued to improve more than 2 0,000 Objective - Vital Signs Vital signs: Vital Signs Temp 98.9 F 07/09/22 12:02 Pulse 99 07/09/22 12:02 Resp 18 07/09/22 12:02 BP 107/73 07/09/22 12:02 Pulse Ox 100 07/09/22 12:02 FiO2 Intake & Output 07/08/22 07/09/22 07/09/22 18:59 06:59 18:59 Intake Total 254 Output Total 1 Balance 253 Intake: Blood Product 254 Platelet Pheresis Pas 254 Psoralen Unit [id number] Output: Urine 1 Other: Voiding Method Toilet Toilet # Voids 3 3 # Bowel Movements 1 - Exam GENERAL: The patient is alert and oriented x3, not in any acute distress. Well developed, well nourished. HEENT: Pupils are round and equally reacting to light. EOMI. No scleral icterus. No conjunctival pallor. Normocephalic, atraumatic. No pharyngeal erythema. No thyromegaly. CARDIOVASCULAR: S1 and S2 present. No murmurs, rubs, or gallops. PULMONARY: Chest is clear to auscultation, no wheezing . no crackles. ABDOMEN: Soft, nontender, nondistended, normoactive bowel sounds. No palpable organomegaly. MUSCULOSKELETAL: No joint swelling or deformity. EXTREMITIES: No cyanosis, clubbing, or pedal edema. NEUROLOGICAL: Gross neurological examination did not reveal any focal deficits. SKIN: No rashes. no petechiae. - Labs CBC & Chem 7: 07/09/22 05:45 07/07/22 06:00 Labs: Abnormal Lab Results - Last 24 Hours (Table) 07/09/22 Range/Units 05:45 RBC 2.64 L (3.80-5.40) m/uL Hgb 8.8 L (11.4-16.0) gm/dL Hct 24.4 L (34.0-46.0) % RDW 16.0 H (11.5-15.5) % Plt Count 19 L* D (150-450) k/uL Lymphocytes # (Manual) 0.68 L (1.0-4.8) k/uL Monocytes # (Manual) 1.33 H (0-1.0) k/uL Assessment and Plan Assessment: Pancytopenia secondary to chemotherapy and acute myeloid leukemia AML Recent history of Klebsiella bacteremia, Neutropenic fever. Not an active issue History of nasal fracture, healing History of subarachnoid and subdural hematoma History of seizure Plan: Monitor platelet count Oncology team consult Fall precautions Labs and medication were reviewed.. Continue same treatment. Continue with symptomatic treatment. Resume home medication. Monitor labs and vitals. DVT and GI prophylaxis. Further recommendations as per clinical course of the patient DVT prophylaxis: no Subcutaneous heparin for severe thrombocytopenia GI Prophylaxis: Pepcid Prognosis is guarded
[2022-07-09] MEDS: VERAPAMIL SR 120 MG TABLET.ER PO SCH (21:52)
[2022-07-09] MEDS: MAGNESIUM OXIDE 400 MG TAB PO SCH (21:52)
[2022-07-09] MEDS: PANTOPRAZOLE 40 MG TABLET PO SCH (21:52)
[2022-07-10 05:46] LABS: HCT 23.7 % (34.0-46.0); HGB 8.4 gm/dL (11.4-16.0); MCH 32.8 pg (25.0-35.0); MCHC 35.4 g/dL (31.0-37.0); MCV 92.5 fL (80.0-100.0); Mean Platelet Volume 9.7; RBC 2.56 m/uL (3.80-5.40); WBC 4.5 k/uL (3.8-10.6)
[2022-07-10 06:13] LABS: Platelet Count 33 k/uL (150-450)
[2022-07-10 06:47] LABS: Band Neutrophils % 1 %; Lymphocytes # (M) 0.77 k/uL (1.0-4.8); Monocytes # (M) 1.53 k/uL (0-1.0); Neutrophils % (M) 48 %; Nucleated Red Blood Cells 0 /100 WBC (0-0); Total Cells Counted 100
[2022-07-10 08:05] VITALS: RESP 18
[2022-07-10] MEDS: LACOSAMIDE 50 MG TABLET PO SCH (09:15)
[2022-07-10] MEDS: LACOSAMIDE 150 MG TABLET PO SCH (09:15)
[2022-07-10] MEDS: ACYCLOVIR 200 MG CAP PO SCH (09:15)
[2022-07-10] MEDS: DOCUSATE 100 MG CAP PO SCH (09:15)
[2022-07-10] MEDS: PHENYTOIN SODIUM EXTENDED 100 MG CAP PO SCH (09:16)
[2022-07-10 12:58] VITALS: BP 133/84; PULSE 102; TEMP 97.7
--- NOTE | 2022-07-10 13:48 | P.DS ---
Providers Date of admission: 07/07/22 11:16 Expected date of discharge: 07/10/22 Attending physician: Barrett Celis MD Consults: 07/06/22 20:41 Consult Physician Routine Consulting Provider: Avi Parisi Consult Reason/Comments: Pancytopenia, severe thrombocytopenia Do you want consulting provider notified?: Yes, Notify in am Primary care physician: Physician Nonstaff Hospital Course: * 66 years old female with multiple medical problems as below. * She was sent by her oncologist Dr. Parisi to the hospital for acute thrombocytopenia secondary to chemotherapy * Patient is a known case of AML and she follow up with oncologist at [facility] in [place] where she got her chemotherapy recently about 10 days ago and she was referred from her primary oncologist to Dr. Parisi oncologist in [place] to monitor her labs including platelet count. She check in her blood count every other day. This time she was referred by Dr. Ma to the hospital for low platelet count. * Patient reports history of syncope each time she got chemotherapy however during this admission she denies any dizziness or syncope/presyncope symptoms. * She is a known case of pancytopenia secondary to chemotherapy and she was in this facility about one month ago for Klebsiella bacteremia and neutropenic fever 07/07/2022 Patient remains with no symptoms Vitals stable WBCs improved to 2.3, platelet count improved to 14 K Central Supply Manager team on the case 07/08/2022 Patient remains asymptomatic Platelet count went down to 12,000, she got 1 unit of platelet transfusion yesterday Patient will get another unit of platelet today Monitor platelet count tomorrow 07/09/2022 Patient was eager to go home soon as she remains asymptomatic Platelet count improved up to 19,000. WBC normal and hemoglobin 8.8. Central Supply Manager team recommended to keep monitoring platelet count tomorrow and she will be considered for discharge platelet count continued to improve more than 20,000 07/10/2022 Plateelt count 30K, NO bleeding DC home with follow up with PCP for CBC check EXAM GENERAL: The patient is alert and oriented x3, not in any acute distress. Well developed, well nourished. HEENT: Pupils are round and equally reacting to light. EOMI. No scleral icterus. No conjunctival pallor. Normocephalic, atraumatic. No pharyngeal erythema. No thyromegaly. CARDIOVASCULAR: S1 and S2 present. No murmurs, rubs, or gallops. PULMONARY: Chest is clear to auscultation, no wheezing . no crackles. ABDOMEN: Soft, nontender, nondistended, normoactive bowel sounds. No palpable organomegaly. MUSCULOSKELETAL: No joint swelling or deformity. EXTREMITIES: No cyanosis, clubbing, or pedal edema. NEUROLOGICAL: Gross neurological examination did not reveal any focal deficits. SKIN: BRUISING. Assessment: Assessment: Pancytopenia secondary to chemotherapy and acute myeloid leukemia AML Recent history of Klebsiella bacteremia, Neutropenic fever. Not an active issue History of nasal fracture, healing History of subarachnoid and subdural hematoma History of seizure Plan: Platelet count stable post tansfusion Oncology team consulted Labs and medication were reviewed. Stable [facility] Patient Condition at Discharge: Fair Plan - Discharge Summary New Discharge Prescriptions: Continue Verapamil HCl [Verelan Pm] 100 mg PO HS Pantoprazole [Protonix] 40 mg PO HS Magnesium Oxide [Mag-Ox] 400 mg PO HS levETIRAcetam [Keppra] 1,500 mg PO BID Docusate [Colace] 100 mg PO BID Phenytoin Sodium Extended [Dilantin] 100 mg PO TID amantadine HCL [Amantadine] 100 mg PO BID Lacosamide 200 mg PO BID Acyclovir [Zovirax] 400 mg PO BID Discharge Medication List Lacosamide 200 mg PO BID 03/02/22 [History] Magnesium Oxide [Mag-Ox] 400 mg PO HS 03/02/22 [History] Pantoprazole [Protonix] 40 mg PO HS 03/02/22 [History] Phenytoin Sodium Extended [Dilantin] 100 mg PO TID 03/02/22 [History] Verapamil HCl [Verelan Pm] 100 mg PO HS 03/02/22 [History] amantadine HCL [Amantadine] 100 mg PO BID 03/02/22 [History] levETIRAcetam [Keppra] 1,500 mg PO BID 05/22/22 [History] Acyclovir [Zovirax] 400 mg PO BID 07/02/22 [History] Docusate [Colace] 100 mg PO BID 07/06/22 [History] Follow up Appointment(s)/Referral(s): Nonstaff,Physician [Primary Care Provider] - 1-2 days Discharge Disposition: HOME SELF-CARE
== END 2022-07-10 14:08 | disposition home or self-care (01) | DRG 809 ==
LOC: EC 10:34 → 5NMEDONC 15:55 → OBSVTOIN 07-07 11:16
PROVIDERS: ADMIT Internal Medicine; ATTEND Internal Medicine
PROC: 30233R1 Transfusion of Nonautologous Platelets into Peripheral Vein, Percutaneous Approach (ICD-10-PCS; principal; 2022-07-06)
PROC: 6A551Z2 Pheresis of Platelets, Multiple (ICD-10-PCS; 2022-07-07)
DX: D61.810 Antineoplastic chemotherapy induced pancytopenia (principal); C92.00 Acute myeloblastic leukemia, not having achieved remission; D69.59 Other secondary thrombocytopenia; G40.909 Epilepsy, unspecified, not intractable, without status epilepticus; T45.1X5A Adverse effect of antineoplastic and immunosuppressive drugs, initial encounter; G62.9 Polyneuropathy, unspecified; I51.7 Cardiomegaly; R91.8 Other nonspecific abnormal finding of lung field; Z86.73 Personal history of transient ischemic attack (TIA), and cerebral infarction without residual deficits; Z87.11 Personal history of peptic ulcer disease; Z91.040 Latex allergy status; Z88.5 Allergy status to narcotic agent; Z79.899 Other long term (current) drug therapy; S02.2XXD Fracture of nasal bones, subsequent encounter for fracture with routine healing
CPT/HCPCS: 36415; 80048; 85025; 86850; 86900; 86901; 99285

== ENCOUNTER 2022-08-06 13:19 | Emergency (ER) | payer MEDICARE ==
[2022-08-06 13:56] VITALS: RESP 18
--- NOTE | 2022-08-06 14:01 | ED ---
General Adult HPI - General Source: patient Mode of arrival: ambulatory Limitations: no limitations - History of Present Illness Associated Symptoms: denies other symptoms <Victor Hugo Vasquez - Last Filed: 08/06/22 15:59> <Kenneth Ryan - Last Filed: 08/06/22 19:28> - General Chief complaint: Recheck/Abnormal Lab/Rx Stated complaint: needs platelets-see order Time Seen by Provider: 08/06/22 13:52 - History of Present Illness Initial comments: Patient sent by Dr. Parisi her oncologist for platelet transfusion after labs today show that she has a platelet count of 6.4. Lab report brought by patient shows a white blood cell count of 0.47, hemoglobin 7.52 with hematocrit of 21.9. Patient did receive IV chemotherapy last Tuesday for AML through left PICC line. This is her third platelet transfusion this week per family. Patient presents with transfusion order and direction to return again on TuesdayAugust 09. States last red blood cell transfusion was in June. She denies any chest pain or difficulty breathing. No abnormal bleeding. No dizziness. Patient diagnosed with acute myeloid leukemia November of last year. Patient has a history of AML, CVA, seizure (Victor Hugo Vasquez) - Related Data Home Medications Medication Instructions Recorded Confirmed Lacosamide 200 mg PO BID 03/02/22 08/05/22 Magnesium Oxide [Mag-Ox] 400 mg PO HS 03/02/22 08/05/22 Pantoprazole [Protonix] 40 mg PO HS 03/02/22 08/05/22 Phenytoin Sodium Extended 100 mg PO TID 03/02/22 08/05/22 [Dilantin] amantadine HCL [Amantadine] 100 mg PO BID 03/02/22 08/05/22 levETIRAcetam [Keppra] 1,500 mg PO BID 05/22/22 08/05/22 Acyclovir [Zovirax] 400 mg PO BID 07/02/22 08/05/22 Docusate [Colace] 100 mg PO BID 07/06/22 08/05/22 Filgrastim-Sndz [Zarxio] 300 mcg SQ DAILY 08/03/22 08/05/22 Allergies Allergy/AdvReac Type Severity Reaction Status Date / Time latex Allergy Itching Verified 08/06/22 13:41 hydrocodone [From Vicodin] AdvReac Nausea & Verified 08/06/22 13:41 Vomiting & Diarrhea Review of Systems ROS Other: All systems not noted in ROS Statement are negative. <Victor Hugo Vasquez - Last Filed: 08/06/22 15:59> ROS Other: All systems not noted in ROS Statement are negative. <Kenneth Ryan - Last Filed: 08/06/22 19:28> ROS Statement: Those systems with pertinent positive or pertinent negative responses have been documented in the HPI. 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 at [facility]-PT HAD A STROKE, BRAIN BLEED AND SEIZURE FOLLOWING TREATMENT, neuropathy bilateral feet, heart palpitations, enlarged heart, benign lung nodules, gastric ulcer History of Any Multi-Drug Resistant Organisms: None Reported Past Surgical History: Section, Cholecystectomy, Hernia Repair, Orthopedic Surgery Additional Past Surgical History / Comment(s): 12/10/21 BMA, double lumen PICC, cholecystectomy/umbilical hernia repair, open repair umbilical hernia/partial omenectomy, surgery to remove uterine fibroids, L oophorectomy, R partial oophorectomy, surgery for nasal fracture, surgery to remove tailbone cysts, R shoulder surgery. Past Anesthesia/Blood Transfusion Reactions: Previous Problems w/ Anesthesia, Postoperative Nausea & Vomiting (PONV) Additional Past Anesthesia/Blood Transfusion Reaction / Comment(s): "very hard coming out of anesthesia" Past Psychological History: No Psychological Hx Reported Smoking Status: Never smoker Past Alcohol Use History: None Reported Past Drug Use History: None Reported - Past Family History Father Family Medical History: Congestive Heart Failure (CHF) Additional Family Medical History / Comment(s): at age 83, possibly from heart issues- unsure. Mother Family Medical History: CVA/TIA, Deep Vein Thrombosis (DVT) Additional Family Medical History / Comment(s): at age 77 from cva <Victor Hugo Vasquez - Last Filed: 08/06/22 15:59> General Exam Limitations: no limitations General appearance: alert, in no apparent distress Head exam: Present: atraumatic Eye exam: Absent: scleral icterus, conjunctival injection, periorbital swelling ENT exam: Present: mucous membranes moist Neck exam: Present: full ROM Respiratory exam: Absent: respiratory distress, accessory muscle use Cardiovascular Exam: Present: regular rate GI/Abdominal exam: Present: soft Extremities exam: Present: normal capillary refill Neurological exam: Present: alert, oriented X3 Psychiatric exam: Present: normal affect, normal mood Skin exam: Present: warm, dry, normal color. Absent: cyanosis, diaphoretic, petechiae, pallor <Victor Hugo Vasquez - Last Filed: 08/06/22 15:59> Course Vital Signs 08/06/22 08/06/22 08/06/22 13:37 13:51 18:12 Temperature 98.6 F 98.0 F 98.1 F Pulse Rate 82 64 80 Respiratory 20 18 18 Rate Blood Pressure 125/75 107/61 151/78 O2 Sat by Pulse 100 97 99 Oximetry 08/06/22 08/06/22 08/06/22 18:29 18:30 18:50 Temperature 98.1 F 98.1 F 97.8 F Pulse Rate 74 72 76 Respiratory 18 18 18 Rate Blood Pressure 135/82 135/82 130/78 O2 Sat by Pulse 99 99 99 Oximetry 08/06/22 19:14 Temperature Pulse Rate 78 Respiratory 18 Rate Blood Pressure 132/83 O2 Sat by Pulse 99 Oximetry Medical Decision Making <Victor Hugo Vasquez - Last Filed: 08/06/22 15:59> <Kenneth Ryan - Last Filed: 08/06/22 19:28> - Medical Decision Making Patient sent by Dr. Parisi her oncologist for platelet transfusion after labs today show that she has a platelet count of 6.4. Lab report brought by patient shows a white blood cell count of 0.47, hemoglobin 7.52 with hematocrit of 21.9. Patient did receive IV chemotherapy last Tuesday for AML through left PICC line. This is her third platelet transfusion this week per family. Patient presents with transfusion order and direction to return again on TuesdayAugust 09. States last red blood cell transfusion was in June. She denies any chest pain or difficulty breathing. No abnormal bleeding. No dizziness. Patient diagnosed with acute myeloid leukemia November of last year. Patient awaiting platelets for transfusion. Case turned over to Dr. Ryan for disposition. Was pt. sent in by a medical professional or institution (, PA, FORESTRY TREE PRUNER, urgent care, hospital, or retirement...) When possible be specific @ -Dr. Parisi oncology Did you speak to anyone other than the patient for history (EMS, parent, family, police, friend...)? What history was obtained from this source @ -Family at bedside presented printed lab results Did you review nursing and triage notes (agree or disagree)? Why? @ -[I reviewed and agree with nursing and triage notes] Were old charts reviewed (outside hosp., previous admission, EMS record, old EKG, old radiological studies, urgent care reports/EKG's, retirement records)? Report findings @ -[No old charts were reviewed] Differential Diagnosis (chest pain, altered mental status, abdominal pain women, abdominal pain men, vaginal bleeding, weakness, fever, dyspnea, syncope, headache, dizziness, GI bleed, back pain, seizure, CVA, palpatations, mental health, musculoskeletal)? @ -Thrombocytopenia, anemia this is not an all inclusive list EKG interpreted by me (3pts min.). @ -n/a X-rays interpreted by me (1pt min.). @ -[None done] CT interpreted by me (1pt min.). @ -[None done] U/S interpreted by me (1pt. min.). @ -[None done] What testing was considered but not performed or refused? (CT, X-rays, U/S, labs)? Why? @ -[None] What meds were considered but not given or refused? Why? @ -[None] Did you discuss the management of the patient with other professionals (professionals i.e. , PA, FORESTRY TREE PRUNER, lab, RT, psych nurse, vp digital marketing social media and crm, cloth washer, teacher, traffic officer, case aide)? Give summary @ -[No] Was smoking cessation discussed for >3mins.? @ -[No] Was critical care preformed (if so, how long)? @ -[No] Were there social determinants of health that impacted care today? How? (Homelessness, low income, unemployed, alcoholism, drug addiction, transportation, low edu. Level, literacy, decrease access to med. care, chcf, rehab)? @ -[No] Was there de-escalation of care discussed even if they declined (Discuss DNR or withdrawal of care, Hospice)? DNR status @ -[No] What co-morbidities impacted this encounter? (DM, HTN, Smoking, COPD, CAD, Cancer, CVA, ARF, Chemo, Hep., AIDS, mental health diagnosis, sleep apnea, morbid obesity)? @ -AML, CVA, seizure Was patient admitted / discharged? Hospital course, mention meds given and route, prescriptions, significant lab abnormalities, going to OR and other pertinent info. @ -[hospital course] Undiagnosed new problem with uncertain prognosis? @ -[No] Drug Therapy requiring intensive monitoring for toxicity (Heparin, Nitro, Insulin, Cardizem)? @ -[No] Were any procedures done? @ -[No] Diagnosis/symptom? @ -Thrombocytopenia Acute, or Chronic, or Acute on Chronic? @ -[default] Uncomplicated (without systemic symptoms) or Complicated (systemic symptoms)? @ -[default] Side effects of treatment? @ -[No] Exacerbation, Progression, or Severe Exacerbation? @ -[No] Poses a threat to life or bodily function? How? (Chest pain, [place], NM, pneumonia, PE, COPD, DKA, ARF, appy, cholecystitis, CVA, Diverticulitis, Homicidal, Suicidal, threat to staff... and all critical care pts) @ -[No] (Victor Hugo Vasquez) Patient had received a 5 pack of platelets. I did reevaluate the patient she had no further complaints she was eager for discharge. She has good outpatient follow-up and is scheduled for platelet transfusion in 3 days. (Kenneth Ryan) - Lab Data Lab Results 08/06/22 Range/Units 14:30 Transfuse Platelets 08/06/2022 Disposition <Victor Hugo Vasquez - Last Filed: 08/06/22 15:59> Is patient prescribed a controlled substance at d/c from ED?: No Time of Disposition: 19:28 <Kenneth Ryan - Last Filed: 08/06/22 19:28> Clinical Impression: Thrombocytopenia Disposition: HOME SELF-CARE Condition: Fair Instructions (If sedation given, give patient instructions): Thrombocytopenia (ED) Referrals: Nonstaff,Physician [REFERRING] - 1-2 days
[2022-08-06 18:59] VITALS: TEMP 97.8
[2022-08-06 19:54] VITALS: BP 140/84; PULSE 79
== END 2022-08-06 19:54 | disposition home or self-care (01) ==
LOC: EC 13:19
DX: D69.6 Thrombocytopenia, unspecified (principal); G40.909 Epilepsy, unspecified, not intractable, without status epilepticus; Z88.5 Allergy status to narcotic agent; Z91.040 Latex allergy status; Z79.899 Other long term (current) drug therapy; Z86.73 Personal history of transient ischemic attack (TIA), and cerebral infarction without residual deficits
CPT/HCPCS: 99283; P9073

== ENCOUNTER 2022-12-13 10:57 | Day surgery (SDC) | payer MEDICARE ==
[2022-12-09 14:12] VITALS: BMI 44.2
[~2022-12-13 10:57] MED LIST changes: -DEXAMETHASONE SOD PHOSPHATE 10 MG/ML 1 ML VIAL IV ONE; -HEPARIN SODIUM,PORCINE 5,000 UNIT/ML 1 ML VIAL SQ ONE; -LIDOCAINE 1% 20 ML VIAL (10MG/ML) FOR IV START INTRADERMA PRN; -SCOPOLAMINE 1.5MG/72HR PATCH TRANSDERM ONE
[2022-12-13 11:37] LABS: Glucose,Whole Blood 122 mg/dL (70-110)
[2022-12-13 11:42] VITALS: RESP 16; TEMP 97.1
[2022-12-13] MEDS ORDERED: PROPOFOL 10 MG/ML 20 ML VIAL IV ONE (12:05)
[2022-12-13] MEDS ORDERED: fentaNYL (PF) 50 MCG/ML 2 ML AMP ONE (12:05)
--- NOTE | 2022-12-13 12:39 | P.PCN ---
Date of Procedure: 12/13/22 Preoperative Diagnosis: AML previously in remission, suspected early relapse Postoperative Diagnosis: Same Procedure(s) Performed: Bone marrow aspiration biopsy Anesthesia: MAC Surgeon: Avi Parisi News Camera Operator #1: Stated None Pathology: other Condition: stable Disposition: same day Indications for Procedure: AML, in remission. Peripheral blood indicates possible early relapse based on MRD testing Operative Findings: Adequate samples Description of Procedure: The procedure was explained in detail to the patient in the outpatient setting. She presented to the outpatient endoscopy suite, where informed consent and IV access for pain. She was then placed in the left lateral ligament suspicion. The area over both posterior iliac crest was cleaned and prepped with Chanell Crane and draping. IV sedation was then initiated. Local anesthesia was administered with lidocaine to the right posterior iliac crest. A Jamshidi needle was then inserted and bone marrow aspirate and biopsy obtained. On withdrawal of the needle, hemostasis was easily achieved. Blood loss was minimal recovery from sedation was satisfactory. She appeared to have tolerated the procedure well without any obvious, immediate complications.
[2022-12-13 12:55] LABS: HCT 40.3 % (34.0-46.0); HGB 13.5 gm/dL (11.4-16.0); MCHC 33.5 g/dL (31.0-37.0); MCV 89.5 fL (80.0-100.0); Mean Platelet Volume 7.4; Reticulocyte % 1.2 % (0.5-2.0); WBC 3.5 k/uL (3.8-10.6)
[2022-12-13 13:18] VITALS: BP 138/85; PULSE 65
[2022-12-13 13:25] LABS: Platelet Count 83 k/uL (150-450)
[2022-12-13 13:34] LABS: Eosinophils # (M) 0.07 k/uL (0-0.7); Lymphocytes # (M) 1.12 k/uL (1.0-4.8); Monocytes # (M) 0.14 k/uL (0-1.0); Neutrophils # (M) 2.14 k/uL (1.3-7.7); Neutrophils % (M) 61 %
[2022-12-13 13:35] LABS: Blast Cells # (M) 0.07 k/uL (0); Nucleated Red Blood Cells 0 /100 WBC (0-0); Total Cells Counted 200
== END 2022-12-13 13:30 | disposition home or self-care (01) ==
LOC: OR 10:57
PROVIDERS: ATTEND Internal Medicine Hematology & Oncology
DX: C92.01 Acute myeloblastic leukemia, in remission (principal); R91.1 Solitary pulmonary nodule; K25.9 Gastric ulcer, unspecified as acute or chronic, without hemorrhage or perforation; G60.9 Hereditary and idiopathic neuropathy, unspecified; G40.911 Epilepsy, unspecified, intractable, with status epilepticus; Z86.73 Personal history of transient ischemic attack (TIA), and cerebral infarction without residual deficits; Z51.81 Encounter for therapeutic drug level monitoring; Z88.9 Allergy status to unspecified drugs, medicaments and biological substances; Z91.040 Latex allergy status; Z79.899 Other long term (current) drug therapy
CPT/HCPCS: 85025; 85045; 38222; J3010; J2704

== ENCOUNTER 2023-02-08 10:30 | Emergency (ER) | payer MEDICARE ==
[2023-02-08 11:01] VITALS: RESP 18
--- NOTE | 2023-02-08 11:17 | ED ---
General Adult HPI - General Chief complaint: Recheck/Abnormal Lab/Rx Stated complaint: blood infusion Time Seen by Provider: 02/08/23 10:41 Source: patient, family, RN notes reviewed, old records reviewed (Blood work done earlier today has white blood cell count 0.2, hemoglobin 7.18, platelet count 2.5) Mode of arrival: ambulatory Limitations: no limitations - History of Present Illness Initial comments: Patient is a pleasant 67-year-old female presenting to the emergency department after abnormal blood work. Patient does have history of AML. Patient was recently on chemotherapy and was held secondary to abnormal blood work is over week ago. Patient had follow-up today and was sent to emergency department. Patient does complain of feeling somewhat fatigued. - Related Data Home Medications Medication Instructions Recorded Confirmed Lacosamide 200 mg PO BID 03/02/22 02/04/23 Phenytoin Sodium Extended 100 mg PO TID 03/02/22 02/04/23 [Dilantin] levETIRAcetam [Keppra] 750 mg PO BID 05/22/22 02/04/23 Allergies Allergy/AdvReac Type Severity Reaction Status Date / Time latex Allergy Itching Verified 02/08/23 10:39 hydrocodone [From Vicodin] AdvReac Nausea & Verified 02/08/23 10:39 Vomiting & Diarrhea Review of Systems ROS Statement: Those systems with pertinent positive or pertinent negative responses have been documented in the HPI. ROS Other: All systems not noted in ROS Statement are negative. Constitutional: Denies: fever Eyes: Denies: eye pain ENT: Denies: ear pain Respiratory: Denies: cough Cardiovascular: Denies: chest pain Endocrine: Reports: fatigue Gastrointestinal: Denies: abdominal pain 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 at [facility]-pt had a stroke, brain bleed and seizure after tx and required intubation and states she was in a coma., neuropathy bilateral feet, heart palpitations, enlarged heart, benign lung nodules, gastric ulcer., constipation, states unsteady at time since her stroke-denies falls, possibly zwe-tqyzonao-fzvqxjlm diet. History of Any Multi-Drug Resistant Organisms: None Reported Past Surgical History: Section, Cholecystectomy, Hernia Repair, Orthopedic Surgery Additional Past Surgical History / Comment(s): 12/10/21 BMA, double lumen PICC, cholecystectomy/umbilical hernia repair, open repair umbilical hernia/partial omenectomy, surgery to remove uterine fibroids, L oophorectomy, R partial oophorectomy, surgery for nasal fracture, surgery to remove tailbone cysts, R shoulder surgery. Past Anesthesia/Blood Transfusion Reactions: Previous Problems w/ Anesthesia, Postoperative Nausea & Vomiting (PONV) Additional Past Anesthesia/Blood Transfusion Reaction / Comment(s): "very hard coming out of anesthesia" Past Psychological History: Anxiety Smoking Status: Never smoker Past Alcohol Use History: None Reported Past Drug Use History: None Reported - Past Family History Father Family Medical History: Congestive Heart Failure (CHF) Additional Family Medical History / Comment(s): at age 83, possibly from heart issues- unsure. Mother Family Medical History: CVA/TIA, Deep Vein Thrombosis (DVT) Additional Family Medical History / Comment(s): at age 77 from cva General Exam Limitations: no limitations General appearance: alert, in no apparent distress Head exam: Present: normocephalic Eye exam: Present: normal appearance Neck exam: Present: normal inspection Respiratory exam: Present: normal lung sounds bilaterally Cardiovascular Exam: Present: regular rate, normal rhythm GI/Abdominal exam: Present: soft. Absent: tenderness Extremities exam: Present: normal inspection Neurological exam: Present: alert Psychiatric exam: Present: normal affect, normal mood Skin exam: Present: normal color Course Vital Signs 02/08/23 02/08/23 10:36 11:00 Temperature 98 F Pulse Rate 108 H 107 H Respiratory 18 18 Rate Blood Pressure 129/79 123/69 O2 Sat by Pulse 100 100 Oximetry EKG Findings - EKG Results: EKG: interpreted by ERMD (Left axis. Poor R-wave progression.), sinus rhythm, normal ST/T Medical Decision Making - Medical Decision Making Was pt. sent in by a medical professional or institution (, PA, CREDIT UNION MANAGER, urgent care, hospital, or fci...) When possible be specific @ -Patient was sent in by Dr. Ma's office Did you speak to anyone other than the patient for history (EMS, parent, family, police, friend...)? What history was obtained from this source @ -Family is present and provides lab sheet with blood counts Did you review nursing and triage notes (agree or disagree)? Why? @ -I reviewed and agree with nursing and triage notes Were old charts reviewed (outside hosp., previous admission, EMS record, old EKG, old radiological studies, urgent care reports/EKG's, fci records)? Report findings @ -. Previous blood work reviewed Differential Diagnosis (chest pain, altered mental status, abdominal pain women, abdominal pain men, vaginal bleeding, weakness, fever, dyspnea, syncope, headache, dizziness, GI bleed, back pain, seizure, CVA, palpatations, mental health, musculoskeletal)? @ -Differential Weakness: Hypoglycemia, shock, sepsis, hyponatremia, anemia, infection, CO, ETOH, adverse medicine reaction, overdose, stroke, this is not meant to be an all-inclusive list. EKG interpreted by me (3pts min.). @ -As above X-rays interpreted by me (1pt min.). @ -None done CT interpreted by me (1pt min.). @ -None done U/S interpreted by me (1pt. min.). @ -None done What testing was considered but not performed or refused? (CT, X-rays, U/S, labs)? Why? @ -Consider blood work however was just done today What meds were considered but not given or refused? Why? @ -None Did you discuss the management of the patient with other professionals (professionals i.e. , PA, CREDIT UNION MANAGER, lab, RT, psych nurse, social work associate, water supply engineer, teacher, philanthropy officer, case making machine operator)? Give summary @ -Case was discussed with practitioner Kelley arias who does recommend 1 unit of single donor irradiated platelets and patient can be discharged. She will help arrange follow-up. Was smoking cessation discussed for >3mins.? @ -No Was critical care preformed (if so, how long)? @ -No Were there social determinants of health that impacted care today? How? (Homelessness, low income, unemployed, alcoholism, drug addiction, transportation, low edu. Level, literacy, decrease access to med. care, fdc, rehab)? @ -No Was there de-escalation of care discussed even if they declined (Discuss DNR or withdrawal of care, Hospice)? DNR status @ -No What co-morbidities impacted this encounter? (DM, HTN, Smoking, COPD, CAD, Cancer, CVA, ARF, Chemo, Hep., AIDS, mental health diagnosis, sleep apnea, morbid obesity)? @ -None Was patient admitted / discharged? Hospital course, mention meds given and route, prescriptions, significant lab abnormalities, going to OR and other pertinent info. @ -Patient and family updated. Patient will receive platelet transfusion and be discharged for follow-up with oncology Undiagnosed new problem with uncertain prognosis? @ -No Drug Therapy requiring intensive monitoring for toxicity (Heparin, Nitro, Insulin, Cardizem)? @ -No Were any procedures done? @ -No Diagnosis/symptom? @ -Thrombocytopenia Acute, or Chronic, or Acute on Chronic? @ -Acute Uncomplicated (without systemic symptoms) or Complicated (systemic symptoms)? @ -default Side effects of treatment? @ -No Exacerbation, Progression, or Severe Exacerbation? @ -No Poses a threat to life or bodily function? How? (Chest pain, USA, CO, pneumonia, PE, COPD, DKA, ARF, appy, cholecystitis, CVA, Diverticulitis, Homicidal, Suicidal, threat to staff... and all critical care pts) @ -No Disposition Clinical Impression: Thrombocytopenia Disposition: HOME SELF-CARE Condition: Stable Instructions (If sedation given, give patient instructions): Thrombocytopenia (ED) Additional Instructions: please do follow-up with Dr. Parisi's office as directed. Call tomorrow to ensure appointment. Please also follow-up with Dr. Bradley instructed. Return for increased fatigue, difficult to breathing, worsening or changing symptoms or any other concerns. Is patient prescribed a controlled substance at d/c from ED?: No Referrals: Kenneth Govea MD [Primary Care Provider] - 1-2 days Time of Disposition: 12:03
[2023-02-08 19:35] VITALS: BP 118/78; PULSE 98; TEMP 99.6
== END 2023-02-08 17:50 | disposition home or self-care (01) ==
LOC: EC 10:30
DX: D69.6 Thrombocytopenia, unspecified (principal); Z86.59 Personal history of other mental and behavioral disorders; Z88.5 Allergy status to narcotic agent; Z91.040 Latex allergy status
CPT/HCPCS: 99284 ×2; 36430; 93005; 86900; 86901; 86850; P9073

== ENCOUNTER 2023-02-18 11:54 | Inpatient (IN) | payer MEDICARE ==
--- NOTE | 2023-02-18 12:35 | ED ---
Recheck HPI - General Source: patient, family, RN notes reviewed <Yasmine Zazueta - Last Filed: 02/18/23 12:32> - General Source: patient, family, RN notes reviewed Limitations: no limitations <Tre Lees - Last Filed: 02/18/23 14:42> - General Stated Complaint: abn labs Time Seen by Provider: 02/18/23 12:32 - History of Present Illness Initial Comments: Patient is 67-year-old female presented ER with a chief complaint of low platelets. Patient was sent here by Dr. Parisi. Patient is currently experiencing a nosebleed. Labs were drawn this morning hemoglobin 6 and PLt 2.0. Patient denies any fevers, chills, night sweats (Yasmine Zazueta) Patient is a pleasant 67-year-old female presenting to the emergency department for abnormal blood work. Patient does have history of leukemia. Patient does have labwork done today as an outpatient. White blood cell count 0.45 with absolute neutrophil 0.01. Hemoglobin of 6.03 and platelets of 2.3. Patient did have a fall last week and did have her nose packed. Patient has been losing from the nose since that time. No recent change. No other areas of bleeding. No new weakness. (Tre Lees) - Related Data Home Medications Medication Instructions Recorded Confirmed Lacosamide 200 mg PO BID 03/02/22 02/11/23 Phenytoin Sodium Extended 100 mg PO TID 03/02/22 02/11/23 [Dilantin] levETIRAcetam [Keppra] 750 mg PO BID 05/22/22 02/11/23 Allergies Allergy/AdvReac Type Severity Reaction Status Date / Time latex Allergy Itching Verified 02/18/23 12:34 hydrocodone [From Vicodin] AdvReac Nausea & Verified 02/18/23 12:34 Vomiting & Diarrhea Review of Systems ROS Other: All systems not noted in ROS Statement are negative. <Yasmine Zazueta - Last Filed: 02/18/23 12:32> ROS Other: All systems not noted in ROS Statement are negative. Constitutional: Denies: fever Eyes: Denies: eye pain ENT: Reports: epistaxis Respiratory: Denies: cough, dyspnea Cardiovascular: Denies: chest pain Endocrine: Reports: fatigue Gastrointestinal: Denies: abdominal pain, hematemesis, melena, hematochezia Genitourinary: Denies: dysuria <Tre Lees - Last Filed: 02/18/23 14:42> ROS Statement: Those systems with pertinent positive or pertinent negative responses have been documented in the HPI. 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 History of Any Multi-Drug Resistant Organisms: None Reported Past Surgical History: Section, Cholecystectomy, Hernia Repair, Orthopedic Surgery Additional Past Surgical History / Comment(s): 12/10/21 BMA, double lumen PICC, cholecystectomy/umbilical hernia repair, open repair umbilical hernia/partial omenectomy, surgery to remove uterine fibroids, L oophorectomy, R partial oophorectomy, surgery for nasal fracture, surgery to remove tailbone cysts, R shoulder surgery. Past Anesthesia/Blood Transfusion Reactions: Previous Problems w/ Anesthesia, Postoperative Nausea & Vomiting (PONV) Additional Past Anesthesia/Blood Transfusion Reaction / Comment(s): "very hard coming out of anesthesia" Smoking Status: Never smoker - Past Family History Father Family Medical History: Congestive Heart Failure (CHF) Additional Family Medical History / Comment(s): at age 83, possibly from heart issues- unsure. Mother Family Medical History: CVA/TIA, Deep Vein Thrombosis (DVT) Additional Family Medical History / Comment(s): at age 77 from cva <Yasmine Zazueta - Last Filed: 02/18/23 12:32> General Exam <Yasmine Zazueta - Last Filed: 02/18/23 12:32> Limitations: no limitations General appearance: alert, in no apparent distress Head exam: Present: normocephalic Eye exam: Present: PERRL ENT exam: Present: other (Bilateral nares are packed with minimal oozing in the right side) Neck exam: Present: normal inspection. Absent: tenderness Respiratory exam: Present: normal lung sounds bilaterally Cardiovascular Exam: Present: regular rate, normal rhythm GI/Abdominal exam: Present: soft. Absent: tenderness Extremities exam: Present: normal inspection Neurological exam: Present: alert. Absent: motor sensory deficit Psychiatric exam: Present: normal affect, normal mood Skin exam: Present: normal color <Tre Lees - Last Filed: 02/18/23 14:42> - General Exam Comments Initial Comments: Visual Physical Exam Vital signs reviewed General:No acute distress. Head: Normocephalic, atraumatic Eyes: PERRLA, EOMI, contusion under right eye I ENT: Airway patent active nosebleed Chest: Nonlabored breathing Skin: No visual rash, normal skin tone Neuro: Alert and oriented 3 Musculoskeletal: No gross abnormalities (Yasmine Zazueta) Course Vital Signs 02/18/23 02/18/23 12:32 14:00 Temperature 97.9 F Pulse Rate 100 103 H Respiratory 22 18 Rate Blood Pressure 107/68 115/68 O2 Sat by Pulse 99 93 L Oximetry Medical Decision Making <Yasmine Zazueta - Last Filed: 02/18/23 12:32> - Lab Data Result diagrams: 02/18/23 13:48 02/18/23 13:48 <Tre Lees - Last Filed: 02/18/23 14:42> - Medical Decision Making I performed the quick note portion of the exam. Electronically signed by Yasmine Zazueta PA-C (Yasmine Zazueta) Was pt. sent in by a medical professional or institution ([facility], MOTION AND TIME STUDY TEACHER, urgent care, hospital, or residential...) When possible be specific @ -Patient was sent by office Did you speak to anyone other than the patient for history (EMS, parent, family, police, friend...)? What history was obtained from this source @ -Family is present and helps right history including recent fall and epistaxis Did you review nursing and triage notes (agree or disagree)? Why? @ -Yes and I agree Were old charts reviewed (outside hosp., previous admission, EMS record, old EKG, old radiological studies, urgent care reports/EKG's, residential records)? Report findings @ -Previous blood work was reviewed Differential Diagnosis (chest pain, altered mental status, abdominal pain women, abdominal pain men, vaginal bleeding, weakness, fever, dyspnea, syncope, headache, dizziness, GI bleed, back pain, seizure, CVA, palpatations, mental health, musculoskeletal)? @ -Differential Weakness: Hypoglycemia, shock, sepsis, hyponatremia, anemia, infection, PR, ETOH, adverse medicine reaction, overdose, stroke, this is not meant to be an all-inclusive list. EKG interpreted by me (3pts min.). @ -As above X-rays interpreted by me (1pt min.). @ -None done CT interpreted by me (1pt min.). @ -None done U/S interpreted by me (1pt. min.). @ -None done What testing was considered but not performed or refused? (CT, X-rays, U/S, labs)? Why? @ -None What meds were considered but not given or refused? Why? @ -None Did you discuss the management of the patient with other professionals (professionals i.e. , PA, MOTION AND TIME STUDY TEACHER, lab, RT, psych nurse, drug abuse social worker, wire winding machine tender, teacher, state wildlife officer, case management manager)? Give summary @ -Case discussed with practitioner gave with oncology who does recommend an irradiated blood and platelets and admission. Case also discussed with Dr. Valle, who will admit coming hospital call Was smoking cessation discussed for >3mins.? @ -No Was critical care preformed (if so, how long)? @ -No Were there social determinants of health that impacted care today? How? (Homelessness, low income, unemployed, alcoholism, drug addiction, transportation, low edu. Level, literacy, decrease access to med. care, snf, rehab)? @ -No Was there de-escalation of care discussed even if they declined (Discuss DNR or withdrawal of care, Hospice)? DNR status @ -No What co-morbidities impacted this encounter? (DM, HTN, Smoking, COPD, CAD, Cancer, CVA, ARF, Chemo, Hep., AIDS, mental health diagnosis, sleep apnea, morbid obesity)? @ -None Was patient admitted / discharged? Hospital course, mention meds given and route, prescriptions, significant lab abnormalities, going to OR and other pertinent info. @ -Patient reevaluated. Patient and family updated. Patient will be admitted for transfusions and further evaluation. Admission orders written. Consult placed. Undiagnosed new problem with uncertain prognosis? @ -No Drug Therapy requiring intensive monitoring for toxicity (Heparin, Nitro, Insulin, Cardizem)? @ -No Were any procedures done? @ -No Diagnosis/symptom? @ -Anemia, thrombocytopenia, epistaxis Acute, or Chronic, or Acute on Chronic? @ -Acute, acute, acute Uncomplicated (without systemic symptoms) or Complicated (systemic symptoms)? @ -default Side effects of treatment? @ -No Exacerbation, Progression, or Severe Exacerbation? @ -No Poses a threat to life or bodily function? How? (Chest pain, USA, PR, pneumonia, PE, COPD, DKA, ARF, appy, cholecystitis, CVA, Diverticulitis, Homicidal, Suicida l, threat to staff... and all critical care pts) @ -No (Tre Lees) - Lab Data Lab Results 02/18/23 02/18/23 Range/Units 13:48 13:48 WBC 0.6 L* (3.8-10.6) k/uL RBC 2.14 L (3.80-5.40) m/uL Hgb 6.9 L* (11.4-16.0) gm/dL Hct 18.5 L* (34.0-46.0) % MCV 86.4 (80.0-100.0) fL MCH 32.1 (25.0-35.0) pg MCHC 37.2 H (31.0-37.0) g/dL RDW 12.7 (11.5-15.5) % MPV 8.5 Sodium 131 L (137-145) mmol/L Potassium 4.3 (3.5-5.1) mmol/L Chloride 94 L (98-107) mmol/L Carbon Dioxide 26 (22-30) mmol/L Anion Gap 11 mmol/L BUN 16 (7-17) mg/dL Creatinine 0.43 L (0.52-1.04) mg/dL Est GFR (CKD-EPI)AfAm >90 (>60 ml/min/1.73 sqM) Est GFR (CKD-EPI)NonAf >90 (>60 ml/min/1.73 sqM) Glucose 248 H (74-99) mg/dL Calcium 8.2 L (8.4-10.2) mg/dL Total Bilirubin 0.7 (0.2-1.3) mg/dL AST 21 (14-36) U/L ALT 25 (4-34) U/L Alkaline Phosphatase 86 (38-126) U/L Total Protein 6.3 (6.3-8.2) g/dL Albumin 3.3 L (3.5-5.0) g/dL Disposition <Yasmine Zazueta - Last Filed: 02/18/23 12:32> Is patient prescribed a controlled substance at d/c from ED?: No Time of Disposition: 14:42 <Tre Lees - Last Filed: 02/18/23 14:42> Clinical Impression: Pancytopenia Disposition: ADMITTED IP TO THIS HOSP Referrals: Nonstaff,Physician [REFERRING] - 1-2 days
[2023-02-18 13:57] LABS: MCH 32.1 pg (25.0-35.0); MCHC 37.2 g/dL (31.0-37.0); MCV 86.4 fL (80.0-100.0); Mean Platelet Volume 8.5; RBC 2.14 m/uL (3.80-5.40); RDW 12.7 % (11.5-15.5)
[2023-02-18 14:16] LABS: HCT 18.5 % (34.0-46.0); HGB 6.9 gm/dL (11.4-16.0); WBC 0.6 k/uL (3.8-10.6)
[2023-02-18 14:24] LABS: ALT 25 U/L (4-34); AST 21 U/L (14-36); African American GFR (CKD) >90 (>60 ml/min/1.73 sqM); Albumin 3.3 g/dL (3.5-5.0); Alkaline Phosphatase 86 U/L (38-126); Anion Gap 11 mmol/L; Blood Urea Nitrogen 16 mg/dL (7-17); Calcium 8.2 mg/dL (8.4-10.2); Carbon Dioxide 26 mmol/L (22-30); Chloride 94 mmol/L (98-107); Glucose 248 mg/dL (74-99); Non-African American GFR(CKD) >90 (>60 ml/min/1.73 sqM); Potassium 4.3 mmol/L (3.5-5.1); Sodium 131 mmol/L (137-145); Total Bilirubin 0.7 mg/dL (0.2-1.3); Total Protein 6.3 g/dL (6.3-8.2)
[2023-02-18] MEDS ORDERED: NALOXONE 0.4 MG/ML 1 ML VIAL IV PRN (14:42)
[2023-02-18 14:45] LABS: Platelet Count 2 k/uL (150-450)
[2023-02-18] MEDS ORDERED: PANTOPRAZOLE 40 MG/10 ML VIAL IV SCH (14:45)
[2023-02-18] MEDS ORDERED: TEMAZEPAM 15 MG CAP PO PRN (16:20)
[2023-02-18] MEDS ORDERED: ALPRAZolam 0.25 MG TAB PO PRN (16:20)
--- NOTE | 2023-02-18 16:54 | XR ---
EXAMINATION TYPE: XR chest 1V portable DATE OF EXAM: 02/18/2023 COMPARISON: 05/21/2022 INDICATION: Stroke CVA TECHNIQUE: Single frontal view of the chest is obtained. FINDINGS: The heart size is normal. The pulmonary vasculature is normal. The lungs are clear. IMPRESSION: 1. No acute pulmonary process.
--- NOTE | 2023-02-18 17:07 | CT ---
EXAMINATION TYPE: CT brain wo con DATE OF EXAM: 02/18/2023 COMPARISON: 05/22/2022 INDICATION: ams DLP: 1134.2 mGycm, Automated exposure control for dose reduction was used. CONTRAST: None CT of the brain is performed utilizing 3 mm thick sections through the posterior fossa and 3 mm thick sections through the remaining calvarium. Study is performed within 24 hours of arrival to the hosp ital. No abnormal hyperdensity is present to suggest an acute intracranial hemorrhage. No mass lesion is evident. There is an oval hypodensity within the right medial occipital region adjacent to the tentorium. This measures 0.9 x 0.5 cm. There is dense thickening along the tentorium. Findings are compatible with a small hemorrhage which may be decompressing into the subdural hemorrhage along the tentorium. Report was immediately called to the ER [place] by Dr. [place] by telephone 1654 hours 02/18/2023. No mass effect is evident. No midline shift is evident. Quadrigeminal plate and ambient cisterns are patent. No effacement of adjacent brain is evident. Ventricles and sulci are appropriate for the patient age. Air-fluid levels in the right maxillary sinus. There is opacification of the nasal passages and ethmo id air cells. Air-fluid levels within the sphenoid sinus. Frontal sinuses appear clear. There is some soft tissue swelling over the right frontal region. No acute fractures evident. IMPRESSION: 1. Subdural hematoma along the tentorium. This may arise from the right medial inferior occipital l obe. 2. Mild soft tissue swelling over the right frontal region. 3. Air-fluid levels in paranasal sinuses, or an sinusitis considered.
[2023-02-18 19:46] LABS: Appearance,Urine Cloudy (Clear); Bacteria,Urine Rare /hpf; Bilirubin,Urine Negative (Negative); Blood,Urine Moderate (Negative); Color,Urine Yellow; Glucose,Urine (UA) 2+ (Negative); Hyaline Casts,Urine 3 /lpf (0-2); Ketones,Urine Negative (Negative); Leukocyte Esterase,Urine Negative (Negative); Mucus,Urine Rare /hpf; Nitrite,Urine Negative (Negative); Protein,Urine Trace (Negative); RBC,Urine 2 /hpf (0-5); Specific Gravity,Urine 1.022 (1.001-1.035); Squamous Epithelial Cell,Urine 8 /hpf (0-4); Urobilinogen,Urine <2.0 mg/dL (<2.0); WBC,Urine 2 /hpf (0-5)
[2023-02-18] MEDS: PHENYTOIN SODIUM EXTENDED 100 MG CAP PO SCH (21:07)
[2023-02-18] MEDS: LACOSAMIDE 50 MG TABLET PO SCH (21:07)
[2023-02-18] MEDS: ACYCLOVIR 200 MG CAP PO SCH (21:07)
[2023-02-18] MEDS: CLINDAMYCIN 150 MG CAP PO SCH (21:07)
[2023-02-18] MEDS: CIPROFLOXACIN HCL 500 MG TAB PO SCH (21:07)
[2023-02-18] MEDS: PANTOPRAZOLE 40 MG/10 ML VIAL IV SCH (21:08)
--- NOTE | 2023-02-18 22:29 | HP ---
HISTORY AND PHYSICAL CHIEF COMPLAINT: Epistaxis and severe thrombocytopenia. HISTORY OF PRESENT ILLNESS: This is a 67-year-old woman with a past medical history of multiple medical problems including AML, on chemotherapy and seizure disorder who is complaining of significant epistaxis and nosebleed. The patient was evaluated in the outpatient, platelets found to be [address] Parisi recommended the patient to be admitted. The patient is being admitted and the patient is being given platelet transfusion as well as anemia for hemoglobin of 6.9. There is no history of fever or rigors, no history of headache or loss of consciousness or seizures. No history of weakness at this time. PAST MEDICAL HISTORY: Seizure, AML, cholecystectomy, rest of the history and rest of the chart is also reviewed. HOME MEDICATIONS: Reviewed include Cipro, dose and rest of medications reviewed. ALLERGIES: Latex. FAMILY HISTORY: History of CHF in the family. SOCIAL HISTORY: No history of smoking or alcohol intake. REVIEW OF SYSTEMS: A 14-point review is negative except as mentioned earlier. PHYSICAL EXAMINATION: VITAL SIGNS: Pulse is 102, blood pressure 120/70, respirations 16. HEENT: Conjunctivae normal. Epistaxis and nasal pack present on the right nostril. NECK: No jugular venous distention. CARDIOVASCULAR: S1, S2 muffled RESPIRATIONS: Diminished at the bases. ABDOMEN: Soft, nontender. LEGS: No edema. NERVOUS SYSTEM: Nonfocal. LABORATORY DATA: WBC 2.6, hemoglobin 6.9, the platelets are 2, rest of the labs are noted. ASSESSMENT: 1. Severe pancytopenia and thrombocytopenia with epistaxis. 2. Anemia. 3. Neutropenia. 4. AML, on chemotherapy. 5. History of seizure disorder. 6. Hyponatremia. 7. History of CVA, TIA. 8. History of gastric ulcer. 9. History of brain bleed and seizure. 10.Multiple complex medical issues. RECOMMENDATIONS: This 67-year-old woman presented with multiple complex medical issues, we will monitor the patient closely and platelets and I would also recommend baseline CT scan of the brain, Hematology and Oncology consultation. Resume the home medications, proton pump inhibitors. Prognosis guarded because of multiple complex medical issues. Further recommendations to follow. MMODL / IJN: [id number] /
[2023-02-19] MEDS: allopurinoL 300 MG TAB PO SCH (08:38)
[2023-02-19] MEDS: FLUCONAZOLE 100 MG TAB PO SCH (08:38)
[2023-02-19] MEDS: LACOSAMIDE 50 MG TABLET PO SCH ×2 (08:38→21:22)
[2023-02-19] MEDS: PHENYTOIN SODIUM EXTENDED 100 MG CAP PO SCH ×3 (08:38→21:23)
[2023-02-19] MEDS: ACYCLOVIR 200 MG CAP PO SCH ×2 (08:39→21:23)
[2023-02-19] MEDS: CIPROFLOXACIN HCL 500 MG TAB PO SCH ×2 (08:39→21:22)
[2023-02-19] MEDS: CLINDAMYCIN 150 MG CAP PO SCH ×3 (08:39→21:22)
[2023-02-19] MEDS: PANTOPRAZOLE 40 MG/10 ML VIAL IV SCH ×2 (08:48→21:23)
--- NOTE | 2023-02-19 13:00 | P.CONS ---
History of Present Illness - Reason for Consult Consult date: 02/19/23 Severe pancytopenia, AML on treatment, bleeding - History of Present Illness The patient is 67-year-old white female, on. She, well known to myself. 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 She underwent induction with the 7+3 regimen in 12/29, with posttreatment course of indicated by development of intracerebral hemorrhage. The patient did however achieve a successful remission. After recovery from the intracerebral hemorrhage, and rehab, she started consolidation chemotherapy and had 3 cycles of the same. She required frequent transfusions during the consultation. She was then placed on observation, but blood count showed a suspicious findings in 11/29, leading to repeat bone marrow aspiration biopsy on 12/13/22 that unfortunately showed relapse. The patient was recommended salvage treatment with Venetoclax and Vidaza. She is being treated in collaboration with hematologic oncology, and BMT at the [facility]. She started the same in early 01/29. She is status post 1 cycle. Oral Venetoclax was discontinued by the [facility] in late 01/29 because of persistent, marked pancytopenia. She had a repeat bone marrow aspiration biopsy at the time in [place], the formal report of which is not available to us, but which according to the patient, showed persistent disease. the patient had an accidental fall about 9 days ago, suffering head, as well a s facial trauma. She developed a subdural hematoma, as well as nasal fracture and was transferred to [facility]. She was able to be managed conservatively, without surgical intervention. She received multiple transfusions, and underwent nasal packing. She was discharged on 02/16/23 and seen for follow-up in the office on 02/18/23. The patient was found to be very weak, in wheelchair, with ongoing oozing from the right nasal passage despite nasal packing. Her CBC showed marked pancytopenia with platelets only 2000 and hemoglobin in the 5-6 range. She was recommended blood and platelet transfusions, and was sent in to the emergency room, as these were not immediately available for outpatient infusion. She was then admitted for further management, and consult placed. She denied any fever or chills. Affect and confirmation have been somewhat slower than baseline since he had trauma, but adequate. CT of the brain on admission showed a small persistent subdural hematoma, 0.9 x 0.5 cm in the right medial occipital region, and soft tissue swelling of the for head and upper face. Chest x-ray did not show any acute disease Review of Systems Constitutional: Reports fatigue, Reports weakness, Reports weight loss Eyes: denies blurred vision, denies pain Ears: deny: decreased hearing, ear discharge, earache, tinnitus Ears, nose, mouth and throat: Reports epistaxis, Reports sinus pain Cardiovascular: Reports dyspnea on exertion Respiratory: Reports dyspnea Gastrointestinal: Denies abdominal pain, Denies diarrhea, Denies nausea, Denies vomiting Genitourinary: Denies dysuria, Denies hematuria Menstruation: Reports postmenopausal Musculoskeletal: Reports muscle weakness Integumentary: Reports as per HPI (Bruising on right forehead and right upper face) Neurological: Reports as per HPI, Reports weakness Psychiatric: Reports as per HPI Endocrine: Reports fatigue Hematologic/Lymphatic: Reports as per HPI 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 at [facility]-pt had a stroke, brain bleed and seizure after tx and required intubation and states she was in a coma., neuropathy bilateral feet, heart palpitations, enlarged heart, benign lung nodules, gastric ulcer., constipation, states unsteady at time since her stroke-denies falls, possibly hkp-ephonnzu-utmdquen diet. History of Any Multi-Drug Resistant Organisms: None Reported Past Surgical History: Section, Cholecystectomy, Hernia Repair, Orthopedic Surgery Additional Past Surgical History / Comment(s): 12/10/21 BMA, double lumen PICC, cholecystectomy/umbilical hernia repair, open repair umbilical hernia/partial omenectomy, surgery to remove uterine fibroids, L oophorectomy, R partial oophorectomy, surgery for nasal fracture, surgery to remove tailbone cysts, R shoulder surgery. Past Anesthesia/Blood Transfusion Reactions: Previous Problems w/ Anesthesia, Postoperative Nausea & Vomiting (PONV) Additional Past Anesthesia/Blood Transfusion Reaction / Comm: "very hard coming out of anesthesia" Past Psychological History: Anxiety Smoking Status: Never smoker Past Alcohol Use History: None Reported Past Drug Use History: None Reported - Past Family History Father Family Medical History: Congestive Heart Failure (CHF) Additional Family Medical History / Comment(s): at age 83, possibly from heart issues- unsure. Mother Family Medical History: CVA/TIA, Deep Vein Thrombosis (DVT) Additional Family Medical History / Comment(s): at age 77 from cva Medications and Allergies Home Medications Medication Instructions Recorded Confirmed Type Lacosamide 200 mg PO BID@0900,2100 03/02/22 02/18/23 History Phenytoin Sodium Extended 100 mg PO TID@0900,1500,209903/02/22 02/18/23 History [Dilantin] levETIRAcetam [Keppra] 1,500 mg PO BID@0900,209905/22/22 02/18/23 History Acyclovir [Zovirax] 400 mg PO BID@0900,209902/18/23 02/18/23 History Ciprofloxacin HCl [Cipro] 500 mg PO BID@0900,209902/18/23 02/18/23 History Fluconazole [Diflucan] 100 mg PO DAILY@0900 02/18/23 02/18/23 History allopurinoL [Zyloprim] 300 mg PO DAILY@0900 02/18/23 02/18/23 History clindamycin HCL [Cleocin] 150 mg PO TID@0900,1500,209902/18/23 02/18/23 History lidocaine HCL [lidocaine HCL 5 ml MUCOUS MEM QID PRN 02/18/23 02/18/23 History Viscous] Allergies Allergy/AdvReac Type Severity Reaction Status Date / Time latex Allergy Itching Verified 02/18/23 15:52 hydrocodone [From Vicodin] AdvReac Nausea & Verified 02/18/23 15:52 Vomiting & Diarrhea Physical Exam Vitals: Vital Signs Temp Pulse Pulse Pulse Resp BP BP 02/19/23 08:35 98.9 F 104 H 20 117/65 02/19/23 08:00 104 H 20 02/19/23 04:00 98.8 F 104 H 18 118/59 02/19/23 02:00 16 02/19/23 01:34 97.9 F 109 H 16 132/71 02/19/23 00:00 98.6 F 111 H 18 126/64 02/18/23 22:49 98.8 F 111 H 16 114/68 02/18/23 22:29 98.6 F 113 H 16 124/76 02/18/23 22:19 98.8 F 115 H 16 131/81 02/18/23 20:00 98.2 F 103 H 18 131/60 02/18/23 18:38 98.1 F 100 18 119/64 02/18/23 18:23 98.0 F 103 H 20 114/64 02/18/23 17:48 106 H 20 115/72 02/18/23 16:19 97.8 F 100 18 115/69 02/18/23 15:59 98.5 F 102 H 16 120/75 02/18/23 15:49 98.1 F 103 H 18 118/75 02/18/23 14:00 103 H 18 115/68 02/18/23 12:32 97.9 F 100 22 107/68 Pulse Ox 02/19/23 08:35 97 02/19/23 08:00 02/19/23 04:00 96 02/19/23 02:00 02/19/23 01:34 98 02/19/23 00:00 98 02/18/23 22:49 100 02/18/23 22:29 02/18/23 22:19 99 02/18/23 20:00 99 02/18/23 18:38 99 02/18/23 18:23 99 02/18/23 17:48 100 02/18/23 16:19 98 02/18/23 15:59 99 02/18/23 15:49 99 02/18/23 14:00 93 L 02/18/23 12:32 99 Intake and Output 02/18/23 02/19/23 02/19/23 22:59 06:59 14:59 Intake Total 371 310 120 Output Total 300 Balance 371 310 -180 Intake: Oral 120 Blood Product 371 310 Platelet Pheresis Pas 371 Psoralen Unit [id number] Rc Irr As1 Unit 0 310 [id number] Output: Urine 300 Other: Voiding Method Toilet Toilet Toilet # Voids 1 # Bowel Movements 1 1 Weight 120.202 kg - Constitutional General appearance: no acute distress - EENT Swelling and distortion of nasal septum and nasal bridge. Bilateral nasal packing. Eyes: EOMI, PERRLA - Neck Neck: no lymphadenopathy Thyroid: bilateral: normal size - Respiratory Respiratory: bilateral: CTA - Cardiovascular Rhythm: regular Heart sounds: normal: S1, S2 - Gastrointestinal General gastrointestinal: normal bowel sounds, soft - Integumentary Bruising right forehead and right malar region - Neurologic Neurologic: CNII-XII intact - Musculoskeletal Musculoskeletal: generalized weakness, strength equal bilaterally - Psychiatric Comprehension and affect slower than baseline, but adequate Psychiatric: A&O x's 3 Results CBC & Chem 7: 02/18/23 13:48 02/18/23 13:48 Labs: Abnormal Lab Results - Last 24 Hours (Table) 02/18/23 02/18/23 02/18/23 Range/Units 13:48 13:48 15:00 WBC 0.6 L* (3.8-10.6) k/uL RBC 2.14 L (3.80-5.40) m/uL Hgb 6.9 L* (11.4-16.0) gm/dL Hct 18.5 L* (34.0-46.0) % MCHC 37.2 H (31.0-37.0) g/dL Plt Count 2 L* (150-450) k/uL Sodium 131 L (137-145) mmol/L Chloride 94 L (98-107) mmol/L Creatinine 0.43 L (0.52-1.04) mg/dL Glucose 248 H (74-99) mg/dL Calcium 8.2 L (8.4-10.2) mg/dL Albumin 3.3 L (3.5-5.0) g/dL Urine Appearance (Clear) Urine Protein (Negative) Urine Glucose (UA) (Negative) Urine Blood (Negative) Ur Squamous Epith Cells (0-4) /hpf Urine Bacteria (None) /hpf Hyaline Casts (0-2) /lpf Urine Mucus (None) /hpf Crossmatch See Detail 02/18/23 Range/Units 19:05 WBC (3.8-10.6) k/uL RBC (3.80-5.40) m/uL Hgb (11.4-16.0) gm/dL Hct (34.0-46.0) % MCHC (31.0-37.0) g/dL Plt Count (150-450) k/uL Sodium (137-145) mmol/L Chloride (98-107) mmol/L Creatinine (0.52-1.04) mg/dL Glucose (74-99) mg/dL Calcium (8.4-10.2) mg/dL Albumin (3.5-5.0) g/dL Urine Appearance Cloudy H (Clear) Urine Protein Trace H (Negative) Urine Glucose (UA) 2+ H (Negative) Urine Blood Moderate H (Negative) Ur Squamous Epith Cells 8 H (0-4) /hpf Urine Bacteria Rare H (None) /hpf Hyaline Casts 3 H (0-2) /lpf Urine Mucus Rare H (None) /hpf Crossmatch Chest x-ray: report reviewed CT Scan - head: report reviewed Assessment and Plan (1) Pancytopenia Narrative/Plan: The patient has severe pancytopenia, due to antineoplastic treatment effect, as well as underlying AML. Her plt count was only 2000 when seen in the office, and she also had severe anemia, in addition to the persistent neutropenia. Her situation was further complicated by recent hospital admission for subdural hematoma, and facial fracture. She had ongoing nasal bleeding when seen in the office. She was therefore sent in to the emergency room for transfusions. - The patient has received 1 unit of platelets, and 1 unit PRBC. Her CBC from the same is pending. Additional transfusions will be ordered to keep hemoglobin greater than 7, and platelets greater than 10. If she has ongoing bleeding, then the target platelet count would need to be higher. At this time it appears that the epistaxis has improved. She does not have any symptoms, or imaging findings suggestive of progression of the subdural hemorrhage. Case was discussed in detail with the ER physician Current Visit: Yes Status: Acute Priority: High Code(s): D61.818 - OTHER PANCYTOPENIA SNOMED Code(s): 281717324 (2) Epistaxis due to trauma Narrative/Plan: This appears to have improved since her admission, off to the platelet transfusion. Continue to monitor Current Visit: No Status: Acute Code(s): R04.0 - EPISTAXIS SNOMED Code(s): 153006615 (3) Acute myeloid leukemia Narrative/Plan: Diagnostic and therapeutic circumstances as described. It appears that the patient, unfortunately, was not able to achieve remission yet with salvage treatment. It is not unexpected however, for 2-4 cycles of this regimen to be required to achieve remission. In addition Venetoclax had to be discontinued due to severe cytopenias, which are persistent. Prognosis is very guarded. We discussed her case with the Gavin BROUSSARD early next week Current Visit: No Status: Chronic Priority: High Code(s): C92.00 - ACUTE MYELOBLASTIC LEUKEMIA, NOT HAVING ACHIEVED REMISSION SNOMED Code(s): 48347010
[2023-02-19 15:01] LABS: MCH 30.6 pg (25.0-35.0); MCHC 35.4 g/dL (31.0-37.0); MCV 86.4 fL (80.0-100.0); Mean Platelet Volume 8.5; RBC 2.11 m/uL (3.80-5.40); RDW 13.6 % (11.5-15.5)
[2023-02-19 15:10] LABS: HCT 18.2 % (34.0-46.0); HGB 6.5 gm/dL (11.4-16.0); WBC 0.4 k/uL (3.8-10.6)
[2023-02-19 15:11] LABS: Platelet Count 14 k/uL (150-450)
[2023-02-19 15:18] LABS: ALT 24 U/L (4-34); AST 18 U/L (14-36); African American GFR (CKD) >90 (>60 ml/min/1.73 sqM); Alkaline Phosphatase 77 U/L (38-126); Anion Gap 10 mmol/L; Blood Urea Nitrogen 11 mg/dL (7-17); Calcium 7.9 mg/dL (8.4-10.2); Carbon Dioxide 26 mmol/L (22-30); Chloride 95 mmol/L (98-107); Glucose 229 mg/dL (74-99); Non-African American GFR(CKD) >90 (>60 ml/min/1.73 sqM); Potassium 4.2 mmol/L (3.5-5.1); Sodium 131 mmol/L (137-145); Total Bilirubin 0.8 mg/dL (0.2-1.3); Total Protein 5.8 g/dL (6.3-8.2)
[2023-02-19] MEDS: THIAMINE 100 MG TAB PO SCH (15:48)
--- NOTE | 2023-02-19 22:31 | PN ---
PROGRESS NOTE DATE OF SERVICE: 02/19/2023 SUBJECTIVE: This is a 67-year-old woman, who was admitted with severe epistaxis as well as severe pancytopenia. She received platelet transfusion. Today's platelets are not available. Hemoglobin is 6.9. Dr. Parisi is following the patient closely also. CT brain done on February 12 repeat showed acute subdural hematoma along the right tentorial. No chest pain. No palpitation. REVIEW OF SYSTEMS: A 14-point review is negative except as mentioned earlier. CURRENT MEDICATIONS: Reviewed include Zyloprim. Doses and the rest of the medications noted. PHYSICAL EXAMINATION: VITAL SIGNS: Pulse is 104, blood pressure is , respirations are 20. HEENT: Conjunctivae normal. CARDIOVASCULAR: n ABDOMEN: Soft. NERVOUS SYSTEM: Nonfocal. LABORATORY DATA: WBC 0.6, hemoglobin 6.9. Rest of the labs are noted. ASSESSMENT: 1. Severe pancytopenia and thrombocytopenia with epistaxis secondary to chemotherapy. 2. Anemia. 3. Neutropenia. 4. AML, on chemotherapy. 5. History of subdural hematoma, recent. 6. History of seizure disorder. 7. Hyponatremia. 8. History of CVA and TIA. 9. History of gastric ulcer. 10.Multiple complex medical issues. RECOMMENDATIONS: I recommended to continue current management, continue symptomatic treatment. Otherwise, at this time, I recommend repeat labs. The patient is on multiple antibiotics. Infectious Disease evaluation has been sought, and the patient still has nasal pack on the right side. We will await ENT evaluation. I would also get a neurology evaluation regarding the recent brain bleed also. Avoid antiplatelet agents at this time. Keppra has been continued. Overall prognosis is still guarded. Further recommendations to follow supplement vitamins. MMODL / IJN: [id number] / [facility]
--- NOTE | 2023-02-19 22:48 | P.CONS ---
History of Present Illness - Reason for Consult Consult date: 02/19/23 Neutropenia Requesting physician: Cait Valle - Chief Complaint Fall and bleeding from the nose x 1 day - History of Present Illness Patient is a 67-year-old female with a past medical history significant for acute myeloid leukemia seizure disorder CVA TIA patient presenting to the hospital complaining of nosebleed and low platelet count apparently the patient did have a fall subsequently noticed to having a bleeding from the right nostril area patient did have a outpatient lab drawn with hemoglobin of 6 and a platelet count of 2 4 the patient was advised to go to the hospital patient denies having any fever or any chills before coming to the hospital and no fever has been recorded during this hospital stay patient was tachycardic but not hypotensive or hypoxic patient did have a white count of 0.6 platelet count of 2 creatinine was normal liver exams are normal urine has been negative patient did have a chest x-ray no acute pulmonary process CT of the brain subdural hematoma along the tentorium patient has been on oral clindamycin infectious disease was consulted today regarding neutropenia, patient did have nasal packing of the right nostril and did have resolution of her bleeding currently denies having any bleeding from the lower part of the body no headache no chest pain shortness of breath or cough no abdominal pain no diarrhea no urin martínez symptoms Review of Systems Positive point and negatives has been mentioned in the HPI, complete review of systems was performed and all other systems are negative 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 at [facility]-pt had a stroke, brain bleed and seizure after tx and required intubation and states she was in a coma., neuropathy bilateral feet, heart palpitations, enlarged heart, benign lung nodules, gastric ulcer., constipation, states unsteady at time since her stroke-denies falls, possibly vbo-oezuldtg-kabqoydu diet. History of Any Multi-Drug Resistant Organisms: None Reported Past Surgical History: Section, Cholecystectomy, Hernia Repair, Orthopedic Surgery Additional Past Surgical History / Comment(s): 12/10/21 BMA, double lumen PICC, cholecystectomy/umbilical hernia repair, open repair umbilical hernia/partial omenectomy, surgery to remove uterine fibroids, L oophorectomy, R partial oophorectomy, surgery for nasal fracture, surgery to remove tailbone cysts, R shoulder surgery. Past Anesthesia/Blood Transfusion Reactions: Previous Problems w/ Anesthesia, Postoperative Nausea & Vomiting (PONV) Additional Past Anesthesia/Blood Transfusion Reaction / Comm: "very hard coming out of anesthesia" Past Psychological History: Anxiety Smoking Status: Never smoker Past Alcohol Use History: None Reported Past Drug Use History: None Reported - Past Family History Father Family Medical History: Congestive Heart Failure (CHF) Additional Family Medical History / Comment(s): at age 83, possibly from heart issues- unsure. Mother Family Medical History: CVA/TIA, Deep Vein Thrombosis (DVT) Additional Family Medical History / Comment(s): at age 77 from cva Medications and Allergies Home Medications Medication Instructions Recorded Confirmed Type Lacosamide 200 mg PO BID@0900,209903/02/22 02/18/23 History Phenytoin Sodium Extended 100 mg PO TID@0900,1500,209903/02/22 02/18/23 History [Dilantin] levETIRAcetam [Keppra] 1,500 mg PO BID@0900,209905/22/22 02/18/23 History Acyclovir [Zovirax] 400 mg PO BID@0900,209902/18/23 02/18/23 History Ciprofloxacin HCl [Cipro] 500 mg PO BID@0900,209902/18/23 02/18/23 History Fluconazole [Diflucan] 100 mg PO DAILY@0900 02/18/23 02/18/23 History allopurinoL [Zyloprim] 300 mg PO DAILY@0900 02/18/23 02/18/23 History clindamycin HCL [Cleocin] 150 mg PO TID@0900,1500,209902/18/23 02/18/23 History lidocaine HCL [lidocaine HCL 5 ml MUCOUS MEM QID PRN 02/18/23 02/18/23 History Viscous] Allergies Allergy/AdvReac Type Severity Reaction Status Date / Time latex Allergy Itching Verified 02/18/23 15:52 hydrocodone [From Vicodin] AdvReac Nausea & Verified 02/18/23 15:52 Vomiting & Diarrhea Physical Exam Vitals: Vital Signs Temp Pulse Pulse Pulse Resp BP BP 02/19/23 08:35 98.9 F 104 H 20 117/65 02/19/23 04:00 98.8 F 104 H 18 118/59 02/19/23 02:00 16 02/19/23 01:34 97.9 F 109 H 16 132/71 02/19/23 00:00 98.6 F 111 H 18 126/64 02/18/23 22:49 98.8 F 111 H 16 114/68 02/18/23 22:29 98.6 F 113 H 16 124/76 02/18/23 22:19 98.8 F 115 H 16 131/81 02/18/23 20:00 98.2 F 103 H 18 131/60 02/18/23 18:38 98.1 F 100 18 119/64 02/18/23 18:23 98.0 F 103 H 20 114/64 02/18/23 17:48 106 H 20 115/72 02/18/23 16:19 97.8 F 100 18 115/69 02/18/23 15:59 98.5 F 102 H 16 120/75 02/18/23 15:49 98.1 F 103 H 18 118/75 02/18/23 14:00 103 H 18 115/68 02/18/23 12:32 97.9 F 100 22 107/68 Pulse Ox 02/19/23 08:35 97 02/19/23 04:00 96 02/19/23 02:00 02/19/23 01:34 98 02/19/23 00:00 98 02/18/23 22:49 100 02/18/23 22:29 02/18/23 22:19 99 02/18/23 20:00 99 02/18/23 18:38 99 02/18/23 18:23 99 02/18/23 17:48 100 02/18/23 16:19 98 02/18/23 15:59 99 02/18/23 15:49 99 02/18/23 14:00 93 L 02/18/23 12:32 99 Intake and Output 02/18/23 02/19/23 02/19/23 22:59 06:59 14:59 Intake Total 371 310 120 Balance 371 310 120 Intake: Oral 120 Blood Product 371 310 Platelet Pheresis Pas 371 Psoralen Unit [id number] Rc Irr As1 Unit 0 310 [id number] Other: Voiding Method Toilet Toilet # Voids 1 # Bowel Movements 1 Weight 120.202 kg GENERAL DESCRIPTION: Elderly female lying in bed, no distress. No tachypnea or accessory muscle of respiration use. HEENT: Shows Pallor , no scleral icterus. Oral mucous membrane is dry. Right nostril is currently packed no bleeding NECK: Trachea central, no thyromegaly. LUNGS: Unlabored breathing. Clear to auscultation anteriorly. No wheeze or crackle. HEART: S1, S2, regular rate and rhythm. No loud murmur ABDOMEN: Soft, no tenderness , guarding or rigidity, no organomegaly EXTREMITIES: No edema of feet. SKIN: No rash, no masses palpable. NEUROLOGICAL: The patient is awake, alert, oriented x3, mood and affect normal. Results CBC & Chem 7: 02/19/23 14:17 02/19/23 14:17 Labs: Abnormal Lab Results - Last 24 Hours (Table) 02/18/23 02/18/23 02/18/23 Range/Units 13:48 13:48 15:00 WBC 0.6 L* (3.8-10.6) k/uL RBC 2.14 L (3.80-5.40) m/uL Hgb 6.9 L* (11.4-16.0) gm/dL Hct 18.5 L* (34.0-46.0) % MCHC 37.2 H (31.0-37.0) g/dL Plt Count 2 L* (150-450) k/uL Sodium 131 L (137-145) mmol/L Chloride 94 L (98-107) mmol/L Creatinine 0.43 L (0.52-1.04) mg/dL Glucose 248 H (74-99) mg/dL Calcium 8.2 L (8.4-10.2) mg/dL Albumin 3.3 L (3.5-5.0) g/dL Urine Appearance (Clear) Urine Protein (Negative) Urine Glucose (UA) (Negative) Urine Blood (Negative) Ur Squamous Epith Cells (0-4) /hpf Urine Bacteria (None) /hpf Hyaline Casts (0-2) /lpf Urine Mucus (None) /hpf Crossmatch See Detail 02/18/23 Range/Units 19:05 WBC (3.8-10.6) k/uL RBC (3.80-5.40) m/uL Hgb (11.4-16.0) gm/dL Hct (34.0-46.0) % MCHC (31.0-37.0) g/dL Plt Count (150-450) k/uL Sodium (137-145) mmol/L Chloride (98-107) mmol/L Creatinine (0.52-1.04) mg/dL Glucose (74-99) mg/dL Calcium (8.4-10.2) mg/dL Albumin (3.5-5.0) g/dL Urine Appearance Cloudy H (Clear) Urine Protein Trace H (Negative) Urine Glucose (UA) 2+ H (Negative) Urine Blood Moderate H (Negative) Ur Squamous Epith Cells 8 H (0-4) /hpf Urine Bacteria Rare H (None) /hpf Hyaline Casts 3 H (0-2) /lpf Urine Mucus Rare H (None) /hpf Crossmatch Assessment and Plan (1) Neutropenia Current Visit: Yes Status: Acute Code(s): D70.9 - NEUTROPENIA, UNSPECIFIED SNOMED Code(s): 756145520 Plan: 1patient presented to hospital with bleeding from the right nostril with the trauma in this patient who do have a history of leukemia and noticed to have low hemoglobin and low platelet count patient is also neutropenic however currently not running any fever and no obvious focus of infection chest x-ray reported negative for acute infiltrate UA was negative abdominal soft clinical examination and no evidence of any cellulitis 2-we will check her inflammatory markers blood culture the patient spiked any fever 3-currently do not see any need for prophylactic antibiotic therapy more than what the patient is already receiving from her oncologist We will follow on clinical condition and cultures to further adjust medication if needed Thank you for this consultation we will follow the patient along with you Dictation was produced using Chain dictation software. please excuse any grammatical, word or spelling errors. Time with Patient: Greater than 30
[2023-02-20] MEDS: THIAMINE 100 MG TAB PO SCH ×2 (06:19→16:56)
[2023-02-20] MEDS: ACYCLOVIR 200 MG CAP PO SCH ×2 (08:52→21:32)
[2023-02-20] MEDS: LACOSAMIDE 50 MG TABLET PO SCH ×2 (08:53→21:32)
[2023-02-20] MEDS: allopurinoL 300 MG TAB PO SCH (08:53)
[2023-02-20] MEDS: PHENYTOIN SODIUM EXTENDED 100 MG CAP PO SCH ×3 (08:53→21:32)
[2023-02-20] MEDS: CLINDAMYCIN 150 MG CAP PO SCH ×3 (08:53→21:32)
[2023-02-20] MEDS: CIPROFLOXACIN HCL 500 MG TAB PO SCH ×2 (08:53→21:33)
[2023-02-20] MEDS: FLUCONAZOLE 100 MG TAB PO SCH (08:53)
[2023-02-20] MEDS: PANTOPRAZOLE 40 MG/10 ML VIAL IV SCH ×2 (08:54→21:31)
[2023-02-20 09:11] LABS: HGB 7.6 gm/dL (11.4-16.0); MCH 29.9 pg (25.0-35.0); MCHC 36.3 g/dL (31.0-37.0); MCV 82.4 fL (80.0-100.0); Mean Platelet Volume 8.7; RBC 2.55 m/uL (3.80-5.40); RDW 15.7 % (11.5-15.5)
--- NOTE | 2023-02-20 09:28 | CT ---
EXAMINATION TYPE: CT brain wo con DATE OF EXAM: 02/20/2023 COMPARISON: 02/18/2023 INDICATION: Subdural hematoma DLP: 1114.4 mGycm, Automated exposure control for dose reduction was used. CONTRAST: None CT of the brain is performed utilizing 3 mm thick sections through the posterior fossa and 3 mm thick sections through the remaining calvarium. Study is performed within 24 hours of arrival to the hosp [facility]. There appears to be some normal maturation of the hemorrhage in the medial left occipital lobe. The s ubdural hematoma along the tentorium remains present and stable. No new hemorrhage is evident. No mass lesion is evident. No acute infarcts are evident. Ventricles and sulci are appropriate for the patient age. There is persistent opacification of sphenoid, ethmoid air cells, bilateral maxillary sinuses. Air-fl uid levels are present within the maxillary sinuses IMPRESSION: 1. Persistent stable subdural hematoma along the tentorium extending to the falx. 2. Clinical correlation is recommended for pansinusitis
[2023-02-20 09:41] LABS: Platelet Count 8 k/uL (150-450); WBC 0.4 k/uL (3.8-10.6)
[2023-02-20 11:11] LABS: RBC Morphology Normal
[2023-02-20 11:42] LABS: ALT 23 U/L (4-34); AST 18 U/L (14-36); African American GFR (CKD) >90 (>60 ml/min/1.73 sqM); Albumin 3.2 g/dL (3.5-5.0); Alkaline Phosphatase 87 U/L (38-126); Anion Gap 11 mmol/L; Blood Urea Nitrogen 10 mg/dL (7-17); Calcium 8.3 mg/dL (8.4-10.2); Carbon Dioxide 23 mmol/L (22-30); Chloride 97 mmol/L (98-107); Glucose 203 mg/dL (74-99); Non-African American GFR(CKD) >90 (>60 ml/min/1.73 sqM); Potassium 4.1 mmol/L (3.5-5.1); Sodium 131 mmol/L (137-145); Total Bilirubin 0.8 mg/dL (0.2-1.3); Total Protein 6.2 g/dL (6.3-8.2)
[2023-02-20 12:07] LABS: C Reactive Protein 24.6 mg/dL (<1.0)
[2023-02-20] MEDS: MULTIVITAMINS, THERA 1 EACH TAB PO SCH (13:37)
[2023-02-20] MEDS: FOLIC ACID 1 MG TAB PO SCH (13:37)
[2023-02-20] MEDS ORDERED: OXYMETAZOLINE 0.05% NASL SPRAY 1 SPRAY BOTTLE NASAL STA (15:02)
--- NOTE | 2023-02-20 16:30 | P.PN ---
Subjective Progress Note Date: 02/20/23 Principal diagnosis: Reason for follow-up is neutropenia Patient is a 67-year-old female with a past medical history significant for acute myeloid leukemia seizure disorder CVA TIA patient presenting to the hospital complaining of nosebleed and low platelet count appar ently the patient did have a fall subsequently noticed to having a bleeding from the right nostril area, that has been packed noticed to have a low white count of 0.4 and neutropenia prompted this infectious disease consultation. On today's evaluation that is 02/20/2023 patient denies having any fever or any chills, the patient is breathing comfortably on room air denies any further bleeding from the nostril or any other part of the body no nausea vomiting abdominal pain or diarrhea. Patient did have white count 0.4, creatinine 0.37 blood cultures currently pending Objective - Vital Signs Vital signs: Vital Signs Temp 98.5 F 02/20/23 15:22 Pulse 110 H 02/20/23 15:22 Resp 16 02/20/23 15:22 BP 136/64 02/20/23 15:22 Pulse Ox 99 02/20/23 12:10 FiO2 Intake & Output 02/19/23 02/20/23 02/20/23 18:59 06:59 18:59 Intake Total 240 310 240 Output Total 300 0 Balance -60 310 240 Intake: Oral 240 240 Blood Product 0 310 0 Platelet Pheresis Pas 0 Psoralen Unit [id number] Rc Irr As1 Unit 0 310 [id number] Output: Urine 300 0 Stool 0 Urine/Stool Mix 0 Emesis 0 Other 0 Other: Voiding Method Toilet Toilet Toilet # Voids 2 2 # Bowel Movements 1 0 - Exam GENERAL DESCRIPTION: An elderly female up in the chair in no distress HEENT right nostril is currently packed no drainage RESPIRATORY SYSTEM: Unlabored breathing , decreased breath sounds at bases HEART: S1 S2 regular rate and rhythm , ABDOMEN: Soft , no tenderness EXTREMITIES: No edema feet - Labs CBC & Chem 7: 02/20/23 08:38 02/20/23 08:38 Labs: Abnormal Lab Results - Last 24 Hours (Table) 02/18/23 02/20/23 02/20/23 Range/Units 15:00 08:38 08:38 WBC 0.4 L* (3.8-10.6) k/uL RBC 2.55 L (3.80-5.40) m/uL Hgb 7.6 L (11.4-16.0) gm/dL Hct 21.0 L (34.0-46.0) % RDW 15.7 H (11.5-15.5) % Plt Count 8 L* (150-450) k/uL Sodium 131 L (137-145) mmol/L Chloride 97 L (98-107) mmol/L Creatinine 0.37 L (0.52-1.04) mg/dL Glucose 203 H (74-99) mg/dL Calcium 8.3 L (8.4-10.2) mg/dL C-Reactive Protein 24.6 H (<1.0) mg/dL Total Protein 6.2 L (6.3-8.2) g/dL Albumin 3.2 L (3.5-5.0) g/dL Procalcitonin (0.02-0.09) ng/mL Crossmatch See Detail 02/20/23 Range/Units 08:38 WBC (3.8-10.6) k/uL RBC (3.80-5.40) m/uL Hgb (11.4-16.0) gm/dL Hct (34.0-46.0) % RDW (11.5-15.5) % Plt Count (150-450) k/uL Sodium (137-145) mmol/L Chloride (98-107) mmol/L Creatinine (0.52-1.04) mg/dL Glucose (74-99) mg/dL Calcium (8.4-10.2) mg/dL C-Reactive Protein (<1.0) mg/dL Total Protein (6.3-8.2) g/dL Albumin (3.5-5.0) g/dL Procalcitonin 0.10 H (0.02-0.09) ng/mL Crossmatch Microbiology - Last 24 Hours (Table) 02/18/23 17:01 Blood Culture - Preliminary Blood Assessment and Plan (1) Neutropenia Current Visit: Yes Status: Acute Code(s): D70.9 - NEUTROPENIA, UNSPECIFIED SNOMED Code(s): 690718177 Plan: 1patient presented to hospital with bleeding from the right nostril with the trauma in this patient who do have a history of leukemia and noticed to have low hemoglobin and low platelet count patient is also neutropenic however currently not running any fever and no obvious focus of infection chest x-ray reported negative for acute infiltrate UA was negative abdominal soft clinical examination and no evidence of any cellulitis 2-patient did have mild elevated procalcitonin 0.10 CRP is 24.6 cultures are currently pending 3-patient will monitor closely off antibiotic therapy Dictation was produced using Miro dictation software. please excuse any grammatical, word or spelling errors. Time with Patient: Less than 30
[2023-02-20] MEDS: OXYMETAZOLINE 0.05% NASL SPRAY 1 SPRAY BOTTLE NASAL SCH (21:31)
--- NOTE | 2023-02-21 03:22 | CONS ---
CONSULTATION REASON FOR CONSULTATION: Epistaxis. HISTORY OF PRESENT ILLNESS: The patient is a very pleasant 67-year-old female, who has a history of AML and was admitted via the emergency room with anemia and pancytopenia. The patient states that approximately 8 to 9 days prior to admission to [facility], she fell while at home. She apparently tripped on her carpeting and fell face first into the carpeting. She subsequently developed a severe nosebleed and was initially taken to a hospital in [place], but was eventually transferred to [facility]. She was diagnosed with a subdural hematoma and at that time a nasal fracture. She had bilateral nasal packing (Merocel nasal tampons), inserted at that time. These have been left in place since her hospital stay at [facility], 8 or 9 days ago. Since that time, she has had some slight oozing around the packing. She is not currently on any type blood thinners. The patient related that she actually fell in May of 2022 and similarly struck her face. At that time, she was seen by Dr. Umaña and diagnosed with a nasal fracture. However, no surgical intervention with respect to the surgical fracture was performed. In addition, the patient states that she has had chronic ear pain and itching of the ears for several years. PAST MEDICAL HISTORY: Reveals she has allergies to latex and hydrocodone. HOME MEDICATIONS: Include: 1. Allopurinol. 2. Lacosamide. 3. Zovirax. 4. Dilantin. 5. Keppra. 6. Cipro. 7. Cleocin. 8. Diflucan. The patient has a history of gout. There is no history of asthma diabetes mellitus or hypertension. REVIEW OF SYSTEMS: HEMATOLOGICAL SYSTEM: Positive with respect to the hematological system in that the patient is known to have AML. MUSCULOSKELETAL SYSTEM: Positive for gout. NEUROLOGICAL SYSTEM: Positive for seizures? Remainder of the review of systems is unremarkable. PHYSICAL EXAMINATION: GENERAL: The patient is a very pleasant, 67-year-old female, who is alert, cooperative, and is in no acute distress at this time. She presents with intact bilateral nasal packing without evidence of any active bleeding at this time.. HEENT: The patient is normocephalic. Tympanic membranes are normal. Middle ear spaces are free of any fluid or infection. Pupils equal, round, and reactive to light and accommodation. Extraocular movements within normal limits. Intranasal examination is not possible because the patient has bilateral nasal packing. Examination of the oropharynx is unremarkable. There is no bleeding down the posterior pharyngeal wall. Palpation of the neck is unremarkable. Both nasal packings were subsequently removed in an atraumatic fashion and without incident or bleeding. Because the right packing was more saturated with blood than the left packing, I suspect that her initial bleeding was initially on the right side. There is no tenderness to the bridge of the nose, which would suggest a nasal fracture. Intranasal examination reveals a usual rawness of the mucous membrane following the packing being left in for an extended period of time. After removing the packing, I allowed the patient to gently blow her nose clear all blood clots from both nares. I then sprayed 3 puffs of Afrin nasal spray in each nostril. I subsequently applied a mustache dressing using a oval eye patch. There was no active bleeding after removal of the packing. Remainder of the head and neck exam is unremarkable. CHEST/CARDIOVASCULAR: Both lung lima are clear. The patient is in regular sinus rhythm. S1 and S2 are present without any murmurs. Peripheral pulses are bilaterally symmetrical. ABDOMEN: There is no evidence of any masses, megaly, or tenderness. The abdomen is soft. The remainder of physical exam is unremarkable. ASSESSMENT: Bilateral anterior-posterior epistaxis. PLAN: I do not see any need to put any further packing in. In fact, in a patient who has thrombocytopenia, it is actually contraindicated to insert nasal packing for bleeding. That is to say is best to use other conservative measures to stop the bleeding. Insertion of a packing whether it would be a balloon or whether it would be nasal tampons is very traumatic to the nasal mucosa and most likely will stir up even more bleeding sites. I am somewhat surprised that they actually packed her nose with her condition of thrombocytopenia being present. I would probably try to stop the bleeding either using Afrin nasal spray or a hemostatic agent such as powdered or liquid thrombin, which is readily available. With respect to the nasal fracture that was seen on one of her x- rays, I am actually doubtful that she did sustain an acute fracture with her recent fall. I suspected the fracture that was seen was actually the fracture that she sustained in May of 2022 when she also fell and struck her face. She has evidence of fluid in the sinus, this is most likely blood. This is quite common with both nostrils packed because any bleeding will tend to eventually end up in the sinus. Fortunately she has been on oral antibiotics, and this should prevent her from getting a sinus infection. I discussed at length with the patient my findings. I have advised her that she will have appropriate discharge instructions dictated by me and she should make sure to read them. Essentially, she is to continue using the Afrin nasal spray twice daily (not 3 times daily) for 7 days after her discharge from the hospital. Once the 7-day period is completed, then she should dispose of the Afrin nasal spray. She should be discharged on some type of oral antibiotics to prevent a sinus infection, either of her current oral antibiotics would be fine. I have advised her not to blow her nose for 7 days after her discharge from the hospital. If she feels that there is mucus in her nose, then she should sniff it back and spit it out. She should also, for 7 days after her discharge from the hospital, open her mouth if she has to sneeze so that the force of the sneeze comes out through her mouth. Finally, with respect to her complaints of chronic ear pain and itching for several years, I have given her one of my business cards and advised her to call my office to make an appointment. At that time, we will evaluate her ears and should be able to come up with a diagnosis and treatment for this problem. I have advised the nursing staff to give the patient any Afrin spray that is left at the time that she is discharged, and also I brought approximately a dozen of eye patches from surgery, which the patient can use at home for a nasal dressing if it is needed. The appropriate method of making a nasal dressing was demonstrated to the patient and to the nursing staff. Finally, I would like to thank you for allowing me to assist in the care of your patient. If I can be of any further assistance, please feel free to contact my office. At this time, I will be signing off this case. VIBHA / JOELLE: [id number] / MTDD
--- NOTE | 2023-02-21 05:43 | PN ---
PROGRESS NOTE DATE OF SERVICE: 02/20/2023 SUBJECTIVE: This 67-year-old woman was admitted with significantly severe thrombocytopenia secondary to chemotherapy, pancytopenia as well as epistaxis. The patient had a nasal pack. The patient also had intractable intracranial bleed. Repeat CAT scan of the brain yesterday showed persistent, stable subdural hematoma along the tentorium extending to falx and pansinusitis. Hematology/Oncology following the patient closely. ENT evaluation pending at this time. PAST MEDICAL HISTORY: Reviewed. REVIEW OF SYSTEMS: 14-point review is negative as mentioned. CURRENT MEDICATIONS: Reviewed include zyloprim. Doses and rest of medications noted. PHYSICAL EXAMINATION: VITAL SIGNS: Pulse is 109, blood pressure n, respirations 18. HEENT: Conjunctivae normal. NECK: No jugular venous distention. CARDIOVASCULAR: S1, S2 muffled. RESPIRATION: Breath sounds diminished at the bases ABDOMEN: Soft and nontender. LABORATORY DATA: WBC 2.4, hemoglobin 7.2, platelets are 8 today. Sodium 131, rest of the labs are noted. C-reactive protein is 24.6. Procalcitonin is 0.1. ASSESSMENT: 1. Severe pancytopenia, thrombocytopenia with epistaxis secondary to chemotherapy. 2. Anemia. 3. Neutropenia. 4. Acute myeloid leukemia, on chemotherapy. 5. Persistent, stable subdural hematoma along the tentorium extending to the falx. 6. Pansinusitis in the CAT scan. 7. History of subdural hematoma, recent. 8. History of seizure disorder. 9. Hyponatremia. 10.History of cerebrovascular accident and transient ischemic attack. 11.History of gastric ulcer. 12.Multiple complex medical issues. RECOMMENDATIONS AND DISCUSSION: Continue current management, continue symptomatic treatment. Repeat labs. Otherwise closely follow with Hematology/Oncology. CT scan was noted. Procalcitonin is elevated. The patient is currently on clindamycin, Cipro, We will continue to monitor. The cultures are negative so far. Guarded prognosis. Further recommendations, see orders for further details. MMODL / IJN: [id number] / [facility]
[2023-02-21] MEDS: THIAMINE 100 MG TAB PO SCH ×2 (06:28→16:46)
--- NOTE | 2023-02-21 09:02 | P.CNNES ---
History of Present Illness Consult date: 02/20/23 Requesting physician: Cait Valle Reason for Consult: History of brain bleed History of Present Illness: Patient is a 67-year-old female, who has been diagnosed with acute myeloid leukemia on 01/06/2022, with severe pancytopenia, suffered from a fall on 02/12/2023, when she tripped on the carpet at home, went flying into the [employer] center. She went to [facility] where computed tomography scan of the head showed subdural hematoma. She was transferred to [facility]. She stayed there for about 3 days and her subdural hematoma remained stable, did not require any craniotomy. Patient also had some nosebleed, for which she underwent nasal packing by ENT. She was discharged on Tuesday, 11/2023 to home. Patient had subsequent outpatient blood testing performed in which her platelets were found to be very low on 02/18/2023 and her oncologist recommended patient to go to the hospital and patient was admitted to [facility]. Patient had a CT head performed, which revealed subdural hematoma along the tentorium. This may arise from the right medial inferior occipital lobe. Mild soft tissue swelling over the right frontal region. Air- fluid levels in the paranasal sinuses, are an acute sinusitis considered. I personally reviewed CT head, agree with the findings. Patient had a subsequent CT head performed today on 02/20/2023, which revealed persistent stable subdural hematoma along the tentorium extending to the falx. Clinical correlation is recommended for pansinusitis. I personally reviewed CT head, agree with the findings. Patient subsequently has been seen by ENT Dr. Shahid, who did not notice any nasal bone fracture and has pulled the packing out. Patient's vital signs include a pressure 127/59, pulse rate 109, temperature 98.6. Her blood tests showed WBC count 0.4, hemoglobin 7.6, platelets 8000. Sodium 131 potassium 4.1, normal renal functions. Normal hepatic panel. UA is negative. Patient is undergoing platelet infusion. Chest x-ray performed on 01/27/2024 revealed no acute pulmonary process. Review of Systems Constitutional: Denies chills, Denies fever Eyes: denies blurred vision, denies diplopia, denies pain Ears, nose, mouth and throat: Reports epistaxis, Denies headache, Denies sore throat Cardiovascular: Denies chest pain, Denies shortness of breath Respiratory: Denies cough, Denies excessive sputum Gastrointestinal: Denies abdominal pain, Denies diarrhea, Denies nausea, Denies vomiting Genitourinary: Denies dysuria, Denies hematuria, Denies mixed incontinence Musculoskeletal: Denies low back pain, Denies myalgias, Denies neck pain Integumentary: Denies pruritus, Denies rash Neurological: Reports as per HPI, Reports head injury, Reports numbness, Reports paresthesias, Reports tingling, Denies weakness Psychiatric: Reports depression, Denies anxiety Hematologic/Lymphatic: Reports easy bleeding, Reports easy bruising 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 at [facility]-pt had a stroke, brain bleed and seizure after tx and required intubation and states she was in a coma., neuropathy bilateral feet, heart palpitations, enlarged heart, benign lung nodules, gastric ulcer., constipation, states unsteady at time since her stroke-denies falls, possibly [id number] diet. History of Any Multi-Drug Resistant Organisms: None Reported Past Surgical History: Section, Cholecystectomy, Hernia Repair, Orthopedic Surgery Additional Past Surgical History / Comment(s): 12/10/21 BMA, double lumen PICC, cholecystectomy/umbilical hernia repair, open repair umbilical hernia/partial omenectomy, surgery to remove uterine fibroids, L oophorectomy, R partial oophorectomy, surgery for nasal fracture, surgery to remove tailbone cysts, R shoulder surgery. Past Anesthesia/Blood Transfusion Reactions: Previous Problems w/ Anesthesia, Postoperative Nausea & Vomiting (PONV) Additional Past Anesthesia/Blood Transfusion Reaction / Comment(s): "very hard coming out of anesthesia" Past Psychological History: Anxiety Smoking Status: Never smoker Past Alcohol Use History: None Reported Past Drug Use History: None Reported - Past Family History Father Family Medical History: Congestive Heart Failure (CHF) Additional Family Medical History / Comment(s): at age 83, possibly from heart issues- unsure. Mother Family Medical History: CVA/TIA, Deep Vein Thrombosis (DVT) Additional Family Medical History / Comment(s): at age 77 from cva Medications and Allergies Home Medications Medication Instructions Recorded Confirmed Type Lacosamide 200 mg PO BID@0900,209903/02/22 02/18/23 History Phenytoin Sodium Extended 100 mg PO TID@0900,1500,209903/02/22 02/18/23 History [Dilantin] levETIRAcetam [Keppra] 1,500 mg PO BID@0900,209905/22/22 02/18/23 History Acyclovir [Zovirax] 400 mg PO BID@0900,209902/18/23 02/18/23 History Ciprofloxacin HCl [Cipro] 500 mg PO BID@0900,209902/18/23 02/18/23 History Fluconazole [Diflucan] 100 mg PO DAILY@0900 02/18/23 02/18/23 History allopurinoL [Zyloprim] 300 mg PO DAILY@0900 02/18/23 02/18/23 History clindamycin HCL [Cleocin] 150 mg PO TID@0900,1500,209902/18/23 02/18/23 History lidocaine HCL [lidocaine HCL 5 ml MUCOUS MEM QID PRN 02/18/23 02/18/23 History Viscous] Allergies Allergy/AdvReac Type Severity Reaction Status Date / Time latex Allergy Itching Verified 02/18/23 15:52 hydrocodone [From Vicodin] AdvReac Nausea & Verified 02/18/23 15:52 Vomiting & Diarrhea Physical Examination - Vital Signs Vital Signs: Vital Signs Temp Pulse Pulse Resp BP BP Pulse Ox 02/20/23 15:22 98.5 F 110 H 16 136/64 02/20/23 12:10 98.6 F 109 H 18 127/59 99 02/20/23 08:50 99 F 94 20 132/69 100 02/20/23 04:00 98.7 F 100 18 126/58 99 02/20/23 00:00 98.2 F 109 H 18 112/64 96 02/19/23 20:00 98.6 F 104 H 104 H 18 133/76 133/76 97 02/19/23 18:17 98.2 F 102 H 16 132/54 02/19/23 17:57 98.6 F 100 16 126/58 02/19/23 17:47 99 F 105 H 18 126/66 Intake and Output 02/20/23 02/20/23 02/20/23 06:59 14:59 22:59 Intake Total 240 0 Output Total 0 Balance 240 0 Intake: Oral 240 Blood Product 0 Platelet Pheresis Pas 0 Psoralen Unit [id number] Output: Urine 0 Stool 0 Urine/Stool Mix 0 Emesis 0 Other 0 Other: Voiding Method Toilet Toilet # Voids 2 # Bowel Movements 0 Patient is an elderly female, in no acute distress. She has a nasal packing in place. Patient is alert awake oriented to time place and person. Speech and language functions are normal. Patient can name and repeat very well. No aphasia or dysarthria. Attention, concentration and fund of knowledge is adequate. On cranial nerve examination, pupils are equal, round and reacting to light, visual lima are full on confrontation, with no neglect on double simultaneous stimulation. Extraocular muscles are intact with no nystagmus. Face is symmetric, tongue protrudes to the midline. Palatal elevation and sensation normal, hearing and shoulder shrug normal, facial sensation normal. On muscle strength testing, there is mild left pronator drift and the strength is normal in arms and legs distally and proximally. Deep tendon reflexes are hypoactive and plantars are flat bilaterally. Sensory to touch is equal with no neglect on double simultaneous stimulation. Cerebellar function showed no ataxia for ixhedb-rx-jwch testing. No dysdiadochokinesia. No ataxia for rkoq-zb-[id number] testing on either side. Tone and bulk of muscles normal. Gait deferred.. On general examination, there is no carotid bruit or murmur, S1-S2 audible. Chest is clear on consultation. Abdomen is soft nontender. No organomegaly, bowel sounds present. Peripheral pulses are present. Mild peripheral edema. Results - Laboratory Findings CBC and BMP: 02/20/23 08:38 02/20/23 08:38 Abnormal Lab Findings: Abnormal Labs 02/18/23 02/18/23 02/18/23 13:48 13:48 15:00 WBC 0.6 L* RBC 2.14 L Hgb 6.9 L* Hct 18.5 L* MCHC 37.2 H RDW Plt Count 2 L* Sodium 131 L Chloride 94 L Creatinine 0.43 L Glucose 248 H Calcium 8.2 L C-Reactive Protein Total Protein Albumin 3.3 L Procalcitonin Urine Appearance Urine Protein Urine Glucose (UA) Urine Blood Ur Squamous Epith Cells Urine Bacteria Hyaline Casts Urine Mucus Crossmatch See Detail 02/18/23 02/19/23 02/19/23 19:05 14:17 14:17 WBC 0.4 L* RBC 2.11 L Hgb 6.5 L* Hct 18.2 L* MCHC RDW Plt Count 14 L* D Sodium 131 L Chloride 95 L Creatinine 0.46 L Glucose 229 H Calcium 7.9 L C-Reactive Protein Total Protein 5.8 L Albumin 3.0 L Procalcitonin Urine Appearance Cloudy H Urine Protein Trace H Urine Glucose (UA) 2+ H Urine Blood Moderate H Ur Squamous Epith Cells 8 H Urine Bacteria Rare H Hyaline Casts 3 H Urine Mucus Rare H Crossmatch 02/20/23 02/20/23 02/20/23 08:38 08:38 08:38 WBC 0.4 L* RBC 2.55 L Hgb 7.6 L Hct 21.0 L MCHC RDW 15.7 H Plt Count 8 L* Sodium 131 L Chloride 97 L Creatinine 0.37 L Glucose 203 H Calcium 8.3 L C-Reactive Protein 24.6 H Total Protein 6.2 L Albumin 3.2 L Procalcitonin 0.10 H Urine Appearance Urine Protein Urine Glucose (UA) Urine Blood Ur Squamous Epith Cells Urine Bacteria Hyaline Casts Urine Mucus Crossmatch Assessment and Plan Assessment: * Subdural hematoma following a trip and fall on 02/12/2023. Patient was initially admitted to [facility], discharged on 02/16/2023. Now admitted for thrombocytopenia. CT head revealed persistent subdural hematoma along the tentorium on 02/18/2023, which has been stable with subsequent study, today on 02/20/2023. Examination is normal except for very mild left pronator drift. * Status post nosebleed since the fall on 02/12/2023, required nasal packing, which now has been removed. * Acute myeloid leukemia, with pancytopenia * History of seizure in 2021, maintained on 3 antiepileptic medication. * Severe thrombocytopenia * Hypertension * Diabetes * Obesity Plan: * Patient's CT head is stable. * Aggressive treatment of thrombocytopenia will help with improvement of subdural hematoma. * No antiplatelets or anticoagulants. * Patient has history of a single seizure couple years ago, never recurred. Patient has been maintained on ? 3 antiepileptic medications including Keppra 1500 mg twice a day, Vimpat 200 mg twice a day and Dilantin 100 mg 3 times a day. Dilantin sometimes can have issues with bone marrow, and especially with her history of leukemia and severe pancytopenia, would recommend tapering it off. * We will decrease Dilantin to 100 mg twice a day. * Check EEG in the morning. If no epileptiform activity, we will recommend decreasing Dilantin 100 mg twice a day for 7 days, then 100 mg once daily for 7 days and then stop. Continue Vimpat and Keppra for now. * Check Dilantin and Keppra level. * Neurology will follow. Thank you for the consult.
[2023-02-21 09:25] LABS: HCT 20.2 % (34.0-46.0); HGB 7.1 gm/dL (11.4-16.0); MCH 29.2 pg (25.0-35.0); MCHC 35.2 g/dL (31.0-37.0); RBC 2.43 m/uL (3.80-5.40); RDW 15.2 % (11.5-15.5)
[2023-02-21 09:51] LABS: Platelet Count 14 k/uL (150-450); WBC 0.5 k/uL (3.8-10.6)
[2023-02-21] MEDS: PHENYTOIN SODIUM EXTENDED 100 MG CAP PO SCH (10:01)
[2023-02-21] MEDS: CIPROFLOXACIN HCL 500 MG TAB PO SCH (10:01)
[2023-02-21] MEDS: CLINDAMYCIN 150 MG CAP PO SCH ×2 (10:01→16:46)
[2023-02-21] MEDS: FLUCONAZOLE 100 MG TAB PO SCH (10:01)
[2023-02-21] MEDS: ACYCLOVIR 200 MG CAP PO SCH (10:01)
[2023-02-21] MEDS: PANTOPRAZOLE 40 MG/10 ML VIAL IV SCH (10:02)
[2023-02-21] MEDS: OXYMETAZOLINE 0.05% NASL SPRAY 1 SPRAY BOTTLE NASAL SCH ×2 (10:02→16:46)
[2023-02-21] MEDS: allopurinoL 300 MG TAB PO SCH (10:02)
[2023-02-21] MEDS: LACOSAMIDE 50 MG TABLET PO SCH (10:02)
[2023-02-21 10:55] LABS: ALT 26 U/L (4-34); AST 19 U/L (14-36); African American GFR (CKD) >90 (>60 ml/min/1.73 sqM); Alkaline Phosphatase 88 U/L (38-126); Anion Gap 9 mmol/L; Blood Urea Nitrogen 10 mg/dL (7-17); Calcium 8.2 mg/dL (8.4-10.2); Carbon Dioxide 24 mmol/L (22-30); Chloride 98 mmol/L (98-107); Glucose 247 mg/dL (74-99); Non-African American GFR(CKD) >90 (>60 ml/min/1.73 sqM); Potassium 4.2 mmol/L (3.5-5.1); Sodium 131 mmol/L (137-145); Total Bilirubin 0.6 mg/dL (0.2-1.3); Total Protein 5.9 g/dL (6.3-8.2)
[2023-02-21 11:41] LABS: Phenytoin (Dilantin) <3.0 ug/mL
--- NOTE | 2023-02-21 12:34 | EEG ---
ELECTROENCEPHALOGRAM REPORT PREAMBLE: This is a 67-year-old female with history of a seizure in the past, has presented with subdural hematoma. The patient is on 3 seizure medications including Keppra 1500 mg b.i.d., Vimpat 200 mg b.i.d., and Dilantin 100 mg t.i.d. The patient has not had any seizure in the last couple of years. This study is performed to consider tapering off Dilantin. EEG FINDINGS: This is a 21-channel digital EEG recorded with video component, utilizing 10/20 international system with referential and bipolar montages. Background consists of well-developed, moderately well regulated, predominantly 6-7 hertz theta activity intermixed with occasional delta in bihemispheric region. Background does not seem to be clearly reactive to eye opening or closing. Photic driving response was not seen. Different stages of sleep were not seen. No focal or generalized epileptiform activity was seen. IMPRESSION: This is an abnormal EEG due to background slowing of [id number] degree. This is suggestive of generalized cerebral dysfunction as can be seen with toxic metabolic encephalopathy or related to diffuse structural brain abnormality. Clinical correlation is recommended. No epileptiform activity was seen. MMODL / IJN: [id number] /
[2023-02-21] MEDS: MULTIVITAMINS, THERA 1 EACH TAB PO SCH (12:56)
[2023-02-21] MEDS: FOLIC ACID 1 MG TAB PO SCH (12:56)
[2023-02-21 12:59] LABS: RBC Morphology Normal
[2023-02-21 13:36] VITALS: PULSE 90; TEMP 98.4
--- NOTE | 2023-02-21 15:19 | P.PN ---
Subjective Progress Note Date: 02/21/23 Principal diagnosis: pancytopenia, AML In follow-up today patient has no new complaints, no fevers, chills, new neurological symptoms, chest pain or cough, nausea or vomiting, acute changes in bowel or bladder habits, bleeding. No new pain to report. Objective - Vital Signs Vital signs: Vital Signs Temp 99.3 F 02/21/23 08:00 Pulse 98 02/21/23 08:00 Resp 18 02/21/23 08:00 BP 129/64 02/21/23 08:00 Pulse Ox 96 02/21/23 08:00 FiO2 Intake & Output 02/20/23 02/21/23 02/21/23 18:59 06:59 18:59 Intake Total 754 180 Output Total 0 0 0 Balance 754 0 180 Intake: Oral 480 180 Blood Product 274 Platelet Pheresis Pas 274 Psoralen Unit [id number] Output: Gastric Drainage 0 Urine 0 Stool 0 0 0 Urine/Stool Mix 0 Emesis 0 Oral Regurgitation 0 Other 0 Other: Voiding Method Toilet Toilet Toilet # Voids 0 2 3 # Bowel Movements 0 - Constitutional General appearance: Present: cooperative, no acute distress, obese - EENT Eyes: Present: anicteric sclerae ENT: Present: hearing grossly normal - Respiratory Details: Respirations even and unlabored at rest - Peripheral edema leg Peripheral Edema: bilateral: 2+ - Musculoskeletal Musculoskeletal: Present: generalized weakness - Psychiatric Psychiatric: Present: A&O x's 3, appropriate affect, intact judgment & insight - Labs CBC & Chem 7: 02/21/23 07:24 02/21/23 08:59 Labs: Abnormal Lab Results - Last 24 Hours (Table) 02/18/23 02/20/23 02/21/23 Range/Units 15:00 08:38 07:24 WBC 0.5 L* (3.8-10.6) k/uL RBC 2.43 L (3.80-5.40) m/uL Hgb 7.1 L (11.4-16.0) gm/dL Hct 20.2 L (34.0-46.0) % Plt Count 14 L* D (150-450) k/uL Sodium (137-145) mmol/L Creatinine (0.52-1.04) mg/dL Glucose (74-99) mg/dL Calcium (8.4-10.2) mg/dL Total Protein (6.3-8.2) g/dL Albumin (3.5-5.0) g/dL Procalcitonin 0.10 H (0.02-0.09) ng/mL Crossmatch See Detail 02/21/23 Range/Units 08:59 WBC (3.8-10.6) k/uL RBC (3.80-5.40) m/uL Hgb (11.4-16.0) gm/dL Hct (34.0-46.0) % Plt Count (150-450) k/uL Sodium 131 L (137-145) mmol/L Creatinine 0.42 L (0.52-1.04) mg/dL Glucose 247 H (74-99) mg/dL Calcium 8.2 L (8.4-10.2) mg/dL Total Protein 5.9 L (6.3-8.2) g/dL Albumin 3.0 L (3.5-5.0) g/dL Procalcitonin (0.02-0.09) ng/mL Crossmatch Microbiology - Last 24 Hours (Table) 02/18/23 17:01 Blood Culture - Preliminary Blood Assessment and Plan (1) Pancytopenia Current Visit: Yes Status: Acute Priority: High Code(s): D61.818 - OTHER PANCYTOPENIA SNOMED Code(s): 921534438 (2) Acute myeloid leukemia Current Visit: Yes Status: Chronic Priority: High Code(s): C92.00 - ACUTE MYELOBLASTIC LEUKEMIA, NOT HAVING ACHIEVED REMISSION SNOMED Code(s): 16732393 Plan: Pancytopenia secondary to chemotherapy -Transfuse for hemoglobin less than 7, platelets less than 10,000. Hemoglobin 7.1 today, platelets 14,000 today -Patient is still on Tuesday, Tuesday, Tuesday CBCs and the office with transfusions as needed -CT of the head without contrast showed a stable subdural hematoma. AML -Status post oral venclexta (recently held because of low counts) and 7 days Vidaza completed 01/18/23 -Pending discussion with [facility] for recommendations. As it is apparent patient is not going to be able to tolerate the above regimen at the current doses. We'll update the patient on the plan of care as soon as we have it.
[2023-02-21 17:11] VITALS: BP 130/72; RESP 18
--- NOTE | 2023-02-21 17:20 | DS ---
DISCHARGE SUMMARY FINAL DIAGNOSES: 1. Severe pancytopenia, thrombocytopenia, and epistaxis secondary to chemotherapy. 2. Anemia. 3. Neutropenia. 4. Acute myeloid leukemia, on chemotherapy. 5. Persistent stable subdural hematoma along the tentorium and extending to the falx. 6. Pansinusitis in the CAT scan. 7. History of subdural hematoma, recent. 8. . 9. Multiple complex medical issues. DISCHARGE DISPOSITION: The patient will be discharged in stable condition and guarded prognosis. Discharge cleared by Hematology/Oncology. Total time taken 35 minutes. HISTORY OF PRESENT ILLNESS: This is a 67-year-old woman with a past medical history of pancytopenia as well as epistaxis related to thrombocytopenia, treated symptomatically. ENT saw the patient. Afrin spray was recommended. Hemoglobin 7.1. The patient received PRBCs and platelet transfusion in the hospital. Recommended close followup and monitoring the platelets and hemoglobin with Hematology/Oncology. DISCHARGE MEDICATIONS: The patient will discharge with the recommend to continue current medications. Continue with Afrin nasal spray and see discharge medication reconciliation for list of medications. Follow up with primary as well as Hematology/Oncology as recommended. MMODL / IJN: [id number] /
== END 2023-02-21 17:36 | disposition home or self-care (01) | DRG 808 ==
LOC: EC 11:54 → 3SCARD 14:42 → OBSVTOIN 16:14 → 3SCARD 18:03
PROVIDERS: ADMIT Hospitalist; ATTEND Hospitalist
PROC: 2Y41X5Z Packing of Nasal Region using Packing Material (ICD-10-PCS; 2023-02-18)
PROC: 30233N1 Transfusion of Nonautologous Red Blood Cells into Peripheral Vein, Percutaneous Approach (ICD-10-PCS; 2023-02-18)
PROC: 30233R1 Transfusion of Nonautologous Platelets into Peripheral Vein, Percutaneous Approach (ICD-10-PCS; 2023-02-18)
PROC: 4A10X4Z Monitoring of Central Nervous Electrical Activity, External Approach (ICD-10-PCS; principal; 2023-02-21)
DX: D61.810 Antineoplastic chemotherapy induced pancytopenia (principal); S06.5XAA Traumatic subdural hemorrhage with loss of consciousness status unknown, initial encounter; C92.00 Acute myeloblastic leukemia, not having achieved remission; E87.1 Hypo-osmolality and hyponatremia; R79.9 Abnormal finding of blood chemistry, unspecified; Z88.5 Allergy status to narcotic agent; D69.59 Other secondary thrombocytopenia; R04.0 Epistaxis; E66.9 Obesity, unspecified; D70.9 Neutropenia, unspecified; G40.909 Epilepsy, unspecified, not intractable, without status epilepticus; S02.2XXA Fracture of nasal bones, initial encounter for closed fracture; T45.1X5A Adverse effect of antineoplastic and immunosuppressive drugs, initial encounter; Z86.73 Personal history of transient ischemic attack (TIA), and cerebral infarction without residual deficits; I10 Essential (primary) hypertension; G62.9 Polyneuropathy, unspecified; J01.90 Acute sinusitis, unspecified; J32.4 Chronic pansinusitis; W01.0XXA Fall on same level from slipping, tripping and stumbling without subsequent striking against object, initial encounter; Z79.899 Other long term (current) drug therapy; Z82.3 Family history of stroke; Z87.11 Personal history of peptic ulcer disease; X58.XXXA Exposure to other specified factors, initial encounter; Z82.49 Family history of ischemic heart disease and other diseases of the circulatory system; Z90.721 Acquired absence of ovaries, unilateral; Z91.040 Latex allergy status; Z91.81 History of falling; Z90.49 Acquired absence of other specified parts of digestive tract; Z87.19 Personal history of other diseases of the digestive system
CPT/HCPCS: 36415; 36430; 70450; 71045; 80053; 80177; 80185; 81001; 84145; 85025; 85027; 86140; 86850; 86900; 86901; 86920; 87040; 87086; 95816; 96374; 99285